=== PATIENT | female | born 1955 | race Hispanic/Latino ===

== ENCOUNTER 2018-04-11 01:40 | Emergency (ER) | payer SELFPAY ==
[2018-04-11] MEDS ORDERED: THIAMINE 200 MG/2 ML INJ ONE (02:04)
[2018-04-11] MEDS ORDERED: MULTIVITAMINS 10 ML VIAL (INJ) IV ONE (02:04)
[2018-04-11 02:36] LABS: Absolute Lymphocytes (CBC) 1.8 K/uL (0.7-4.9); Absolute Monocytes 0.5 K/uL (0.1-1.3); Absolute Neutrophil 3.2 K/uL (1.8-8.0); Basophils % 0.9 % (0-1.3); Eosinophils % 1.7 % (0-4.4); Hematocrit 41.2 % (36.0-45.0); Lymphocytes % 31.3 % (15.3-44.8); MCH 30.9 pg (27.0-35.0); MCV 90.5 fL (80-100); MPV 8.4 fL (7.6-11.3); RBC Red Blood Cell Count 4.55 M/uL (3.86-4.86)
[2018-04-11 02:47] LABS: Albumin 3.5 g/dL (3.4-5.0); Bilirubin Direct 0.1 mg/dL (0-0.2); Bilirubin Total 0.5 mg/dL (0.2-1.0); Potassium 3.4 mmol/L (3.5-5.1); Protein, Total 7.3 g/dL (6.4-8.2)
--- NOTE | 2018-04-11 02:53 | ER ---
Nurse's Notes [facility] Name: Edith Hernandez Age: 62 yrs Sex: Female : 1955 Arrival Date: 04/11/2018 Time: 01:42 Bed 4 Private MD: Diagnosis: Head injury. S/P Fall. Ingestion of alcohol Presentation: 04/11 01:45 Presenting complaint: EMS states: Patient was out in a bar drinking and fall in the ao bathroom sink and hit her forehead. Patient reports LOC about 2 minutes. Care prior to arrival: None. Mechanism of Injury: Fall from standing position. Hit a bathroom sink. Trauma event details: Injury occurred in the [facility]. 01:45 Acuity: ZHANG 3 ao 01:45 Method Of Arrival: EMS: [facility] ao 01:57 Transition of care: patient was not received from another setting of care. Onset of ao symptoms was April 11, 2018 at 01:00. Risk Assessment: Do you want to hurt yourself or someone else? Patient reports no desire to harm self or others. Initial Sepsis Screen: Does the patient meet any 2 criteria? No. Patient's initial sepsis screen is negative. Does the patient have a suspected source of infection? No. Patient's initial sepsis screen is negative. Triage Assessment: 01:54 General: Appears in no apparent distress. comfortable, Behavior is calm, cooperative, ao appropriate for age. Pain: Complains of pain in forehead Pain does not radiate. Pain currently is 8 out of 10 on a pain scale. EENT: No signs and/or symptoms were reported regarding the EENT system. Neuro: Level of Consciousness is awake, alert, obeys commands, Oriented to person, place, time, situation, Appropriate for age Moves all extremities. Full function Speech is normal. Cardiovascular: Capillary refill < 3 seconds Patient's skin is warm and dry. Respiratory: Airway is patent Respiratory effort is even, unlabored, Respiratory pattern is regular, symmetrical. GI: Abdomen is non-distended. : No signs and/or symptoms were reported regarding the genitourinary system. Derm: Skin is pink, warm \T\ dry. normal, Skin temperature is warm. Musculoskeletal: Circulation, motion, and sensation intact. Range of motion:. Trauma Activation: Physician: ED Physician; Name: Garrick; Notified At: ; Arrived At: Physician: General Surgeon; Name: ; Notified At: ; Arrived At: Physician: Radiology; Name: Naty; Notified At: ; Arrived At: Physician: Respiratory; Name: Teto; Notified At: ; Arrived At: Physician: Lab; Name: ; Notified At: ; Arrived At: Historical: - Allergies: 01:53 No Known Allergies; ao - Home Meds: 01:53 unknow hypertension [Active]; Insulin: Novolin R Sub-Q [Active]; ao - PMHx: 01:53 Stroke Left side defecit; ao - PSHx: 01:53 None; ao - Immunization history:: Adult Immunizations up to date. - Social history:: Smoking status: Patient/guardian denies using tobacco, Patient uses alcohol, occasionally. - Immunization history: Last tetanus immunization: unknown. - Ebola Screening: : Patient negative for fever greater than or equal to 101.5 degrees Fahrenheit, and additional compatible Ebola Virus Disease symptoms Patient denies exposure to infectious person Patient denies travel to an Ebola-affected area in the 21 days before illness onset. Screenin:49 Abuse screen: Denies threats or abuse. Denies injuries from another. Nutritional ao screening: No deficits noted. Tuberculosis screening: No symptoms or risk factors identified. Fall Risk Fall in past 12 months (25 points). Primary Survey: 01:54 A: Airway: patent. Breathing/Chest: Respiratory pattern: regular, Respiratory effort: ao spontaneous, unlabored, Breath sounds: clear, Chest inspection: symmetrical rise and fall of the chest. Circulation: Cardiac rhythm: sinus rhythm Heart tones present. Pulses: Skin color: pink, Skin temperature: warm. Disability Alert. 01:56 Reassessment Breathing/Chest. ao Assessment: 01:56 General: See triage assessment. ao 03:03 Reassessment: Patient to be discharge. DR Mccauley ordered to Bolus 500 Ml of the banana ao Bag. Patient to be send home when bolus is done about 30 min. Vital Signs: 01:49 BP 125 / 68; Pulse 70; Resp 16; Pulse Ox 96% on R/A; Weight 88.45 kg; Height 5 ft. 2 ao in. (157.48 cm); Pain 8/10; 03:04 BP 137 / 64; Pulse 72; Resp 16; Pulse Ox 100% on R/A; ao 01:49 Body Mass Index 35.67 (88.45 kg, 157.48 cm) ao [place] Coma Score: 01:49 Eye Response: spontaneous(4). Verbal Response: oriented(5). Motor Response: obeys ao commands(6). Total: 15. Trauma Score (Adult): 01:49 Eye Response: spontaneous(1); Verbal Response: oriented(1); Motor Response: obeys ao commands(2); Systolic BP: > 89 mm Hg(4); Respiratory Rate: 10 to 29 per min(4); Ayden Score: 15; Trauma Score: 12 ED Course: 01:42 Patient arrived in ED. ms 01:42 Sal Mccauley MD is Attending Physician. pkl 01:44 Raghu Grier RN is Primary Nurse. ao 01:48 Triage completed. ao 01:50 Arm band placed on right wrist. Patient placed in an exam room, on a stretcher, in a ao wheelchair, on canal driver, on pulse oximetry, Patient notified of wait time. 01:57 Patient has correct armband on for positive identification. Pulse ox on. NIBP on. ao 01:57 Patient maintains SpO2 saturation greater than 95% on room air. ao 01:57 Thermoregulation: warm blanket given to patient. ao 02:02 Radiology exam delayed due to ED staff drawing labs at this time. kw1 02:[address] via stretcher. kw1 02:16 CT Head Brain wo Cont In Process Unspecified. EDMS 02:16 CT completed. Patient tolerated procedure well. Patient moved back from CT. kw1 03:53 No provider procedures requiring assistance completed. IV discontinued, intact, tl2 bleeding controlled, No redness/swelling at site. Pressure dressing applied. Administered Medications: 02:31 Drug: Banana Bag - (NS 0.9% 1000 ml, foLIC Acid 1 mg, Thiamine 100 mg, Multivitamin 1 ao amp) Route: IV; Rate: calculated rate; Site: right antecubital; 03:51 Follow up: IV Status: Completed infusion; IV Intake: 700ml tl2 03:04 Drug: K-Dur 20 mEq Route: PO; ao 03:51 Follow up: Response: No adverse reaction tl2 03:05 Drug: Tylenol 650 mg Route: PO; ao 03:51 Follow up: Response: No adverse reaction tl2 03:05 Drug: Zofran 4 mg Route: IVP; Site: right antecubital; ao 03:52 Follow up: Response: No adverse reaction tl2 Intake: 03:51 IV: 700ml; Total: 700ml. tl2 03:54 PO: 50ml; IV: 700ml (IV Fluid); Total: 1450ml. tl2 Outcome: 02:52 Discharge ordered by . pkdominga 03:53 Discharged to home via wheelchair. tl2 03:53 Condition: stable 03:53 Discharge instructions given to patient, Instructed on discharge instructions, follow up and referral plans. Demonstrated understanding of instructions, follow-up care, medications. 03:54 Patient's length of stay was not longer than 2 hours. tl2 03:55 Patient left the ED. tl2 Signatures: Dispatcher [employer] EDSal Markham MD MD pkl Solis, Maria ms Ortiz, Alex RN Dara Isbell RN RN tl2 Mavis Bond [facility]
--- NOTE | 2018-04-11 02:53 | EDPHYS ---
Physician Documentation [facility] Name: Edith Hernandez Age: 62 yrs Sex: Female : 1955 Arrival Date: 04/11/2018 Time: 01:42 Bed 4 Private MD: ED Physician Sal Mccauley HPI: 04/11 01:46 This 62 yrs old Female presents to ER via Unassigned with complaints of Fall pkl Injury. 01:46 Details of fall: The patient fell from an upright position. Onset: The symptoms/episode pkl began/occurred just prior to arrival. Associated injuries: The patient sustained injury to the head, contusion, hit head against sink. Patient admits to drinking a lot earlier. Historical: - Allergies: 01:53 No Known Allergies; ao - Home Meds: 01:53 unknow hypertension [Active]; Insulin: Novolin R Sub-Q [Active]; ao - PMHx: 01:53 Stroke Left side defecit; ao - PSHx: 01:53 None; ao - Immunization history:: Adult Immunizations up to date. - Social history:: Smoking status: Patient/guardian denies using tobacco, Patient uses alcohol, occasionally. - Immunization history: Last tetanus immunization: unknown. - Ebola Screening: : Patient negative for fever greater than or equal to 101.5 degrees Fahrenheit, and additional compatible Ebola Virus Disease symptoms Patient denies exposure to infectious person Patient denies travel to an Ebola-affected area in the 21 days before illness onset. ROS: 01:46 Eyes: Negative for injury, pain, redness, and discharge, ENT: Negative for injury, pkl pain, and discharge, Neck: Negative for injury, pain, and swelling, Cardiovascular: Negative for chest pain, palpitations, and edema, Respiratory: Negative for shortness of breath, cough, wheezing, and pleuritic chest pain, Abdomen/GI: Negative for abdominal pain, nausea, vomiting, diarrhea, and constipation, Back: Negative for injury and pain, : Negative for injury, bleeding, discharge, and swelling, MS/Extremity: Negative for injury and deformity, Skin: Negative for injury, rash, and discoloration. 01:46 Neuro: Positive for loss of consciousness. Exam: 01:46 Eyes: Pupils equal round and reactive to light, extra-ocular motions intact. Lids and pkl lashes normal. Conjunctiva and sclera are non-icteric and not injected. Cornea within normal limits. Periorbital areas with no swelling, redness, or edema. 01:46 Head/face: Noted is hematoma, that is mild, of the forehead. 01:46 ENT: Exam is negative for acute changes. 01:46 Neck: Exam negative for acute changes, obvious evidence of injury or deformity. 01:46 Chest/axilla: Exam negative for acute changes. 01:46 Cardiovascular: Rate: normal, actual rate is 85 bpm, Rhythm: regular. 01:46 Respiratory: the patient does not display signs of respiratory distress, Respirations: normal, Breath sounds: are clear throughout. 01:46 Abdomen/GI: Bowel sounds: normal, Palpation: abdomen is soft and non-tender, in all quadrants. 01:46 Back: Exam negative for acute changes. 01:46 : Exam negative for acute changes. 01:46 Musculoskeletal/extremity: Exam is negative for acute changes. 01:46 Skin: Exam negative for rash. 01:46 Neuro: Orientation: is normal, Mentation: is normal, Cranial nerves: grossly normal, Motor: is normal. Vital Signs: 01:49 BP 125 / 68; Pulse 70; Resp 16; Pulse Ox 96% on R/A; Weight 88.45 kg; Height 5 ft. 2 ao in. (157.48 cm); Pain 8/10; 03:04 BP 137 / 64; Pulse 72; Resp 16; Pulse Ox 100% on R/A; ao 01:49 Body Mass Index 35.67 (88.45 kg, 157.48 cm) ao [place] Coma Score: 01:49 Eye Response: spontaneous(4). Verbal Response: oriented(5). Motor Response: obeys ao commands(6). Total: 15. Trauma Score (Adult): 01:49 Eye Response: spontaneous(1); Verbal Response: oriented(1); Motor Response: obeys ao commands(2); Systolic BP: > 89 mm Hg(4); Respiratory Rate: 10 to 29 per min(4); Ayden Score: 15; Trauma Score: 12 MDM: 01:42 Patient medically screened. pkl 02:51 Data reviewed: vital signs, nurses notes, lab test result(s), radiologic studies, CT pkl scan. 04/11 01:43 Order name: CBC with Diff; Complete Time: 02:46 pkl 04/11 01:43 Order name: Chem 7; Complete Time: 02:49 pkl 04/11 01:43 Order name: LFT's; Complete Time: 02:49 pkl 04/11 01:43 Order name: Lipase; Complete Time: 02:49 pkl 04/11 01:43 Order name: ETOH Level; Complete Time: 02:49 pkl 04/11 01:43 Order name: UDS pkl 04/11 01:44 Order name: CT Head Brain wo Cont pkl Administered Medications: 02:31 Drug: Banana Bag - (NS 0.9% 1000 ml, foLIC Acid 1 mg, Thiamine 100 mg, Multivitamin 1 ao amp) Route: IV; Rate: calculated rate; Site: right antecubital; 03:51 Follow up: IV Status: Completed infusion; IV Intake: 700ml tl2 03:04 Drug: K-Dur 20 mEq Route: PO; ao 03:51 Follow up: Response: No adverse reaction tl2 03:05 Drug: Tylenol 650 mg Route: PO; ao 03:51 Follow up: Response: No adverse reaction tl2 03:05 Drug: Zofran 4 mg Route: IVP; Site: right antecubital; ao 03:52 Follow up: Response: No adverse reaction tl2 Disposition: 04/11/18 02:52 Discharged to Home. Impression: Head injury. S/P Fall. Ingestion of alcohol. - Condition is Stable. - Medication Reconciliation Form, Thank You Letter, Antibiotic Education, Prescription Opioid Use form. - Follow up: Private Physician; When: 2 - 3 days; Reason: Re-evaluation by your physician. - Problem is new. - Symptoms have improved. Signatures: Dispatcher [employer] EDME Sal Mccauley MD MD pkRaghu Castaneda RN RN Dara Bernstein RN RN tl2 Corrections: (The following items were deleted from the chart) 03:55 02:52 04/11/2018 02:52 Discharged to Home. Impression: Head injury. S/P Fall. Ingestion tl2 of alcohol. Condition is Stable. Forms are Medication Reconciliation Form, Thank You Letter, Antibiotic Education, Prescription Opioid Use. Follow up: Private Physician; When: 2 - 3 days; Reason: Re-evaluation by your physician. Problem is new. Symptoms have improved. pkl
[2018-04-11] MEDS ORDERED: ACETAMINOPHEN 325 MG TABLET ONE (03:01)
[2018-04-11] MEDS ORDERED: POTASSIUM CL SA 10 MEQ TAB PO ONE (03:02)
[2018-04-11] MEDS ORDERED: ONDANSETRON 4 MG/2 ML VIAL ONE (03:03)
--- NOTE | 2018-04-11 11:29 | RAD REPORT ---
EXAM DESCRIPTION: CT - Head Brain Wo Cont - 04/11/2018 3:42 am CLINICAL HISTORY: fall Head injury. COMPARISON: No comparisons TECHNIQUE: All CT scans are performed using dose optimization technique as appropriate and may inclu de automated exposure control or mA/KV adjustment according to patient size. FINDINGS: No intracranial hemorrhage, hydrocephalus or extra-axial fluid collection.No areas of brai n edema or evidence of midline shift. The paranasal sinuses and mastoids are clear. The calvarium is intact. IMPRESSION: No acute intracranial abnormality.
== END 2018-04-11 03:55 | disposition home or self-care (01) ==
LOC: ER 01:40
DX: S00.83XA Contusion of other part of head, initial encounter (principal); S06.9X9A Unspecified intracranial injury with loss of consciousness of unspecified duration, initial encounter; W01.198A Fall on same level from slipping, tripping and stumbling with subsequent striking against other object, initial encounter; Y93.9 Activity, unspecified; Y92.29 Other specified public building as the place of occurrence of the external cause; F10.129 Alcohol abuse with intoxication, unspecified
CPT/HCPCS: 36415; 70450; 80048; 80076; 80320; 83690; 85025; 96365; 96375; 99285; J2405; J3411

== ENCOUNTER 2022-02-19 17:46 | Emergency (ER) | payer OTHER ==
--- OUTSIDE RECORDS SUMMARY | 2022-02-19 17:49 | XMS REPORT | Continuity of Care Document ---
:1955 Author Organization [facility] t Address [address] [place] [address] Care Team Providers Name Role Phone Tj Primary Care Physician CARLITO Attending Clinician Unavailable Carlito TOVAR Attending Clinician Bello TOVAR, K.H. Attending Clinician Payers Payer Name Policy Type Policy Number Effective Date Expiration Date S ource Problems Condition Condition Condition Status Onset Resolution Last Treating Co mments Source Name Details Category Date Date Treatment Clinician Date A-fib A-fib Disease Active Univers 2-24 ity of 00:00: [address] Sinus Sinus Disease Active 2020-09 Univers pause pause 1-24 ity of 00:00: [address] Paroxysmal Paroxysmal Disease Active 2020-09 U marifer atrial atrial 1-22 ity of fibrillati [place] with 00 Medical RVR RVR Branch Obesity Obesity Disease Active 2020-09 Univers (BMI (BMI 1-22 ity of 30-39.9) 30-39.9) 00:00: [address] Elevated Elevated Disease Active 2020-09 Unive rs brain brain 1-22 ity of natriureti natriureti [place] c peptide c peptide 00 Medi kin (BNP) (BNP) Branch level level Pancreatit Pancreatit Disease Active 2020-09 U nivers is, is, 1-20 ity of unspecifie unspecifie 00:[place] d 00 Medical pancreatit pancreatit Br anch is type is type Decreased Decreased Disease Active 2015-09 Uni vers coordinati coordinati 09-09 it y of on on 00:00: [place] [facility] Decreased Decreased Disease Active 2015-09 Uni vers pinch pinch 09-09 ity of strength strength 00:00: [place] [facility] Decreased 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 Disease 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-09 ity of 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 strength 00:00: [place] of left of left 00 Medical hand hand Branch Decreased Decreased Disease Active 2015-09 Uni vers activities activities 09-09 it y of of daily of daily 00:00: [place] living living 00 Medical (ADL) (ADL) Branch Cerebrovas Cerebrovas Disease Active 2015-09 U nivers cular cular 09-03 ity of accident accident 00:00: [place] (CVA) due (CVA) due 00 Medi kin to to Branch embolism 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 Gait Gait Disease Active 2015-09 Univers abnormalit abnormalit 09-03 it y of y y 00:00: [place] [facility] Weakness Weakness Disease Active 2015-09 Unive rs of both of both 1-03 ity of lower lower 00:00: [place] extremitie extremitie 00 Me dical s s Branch Left hand Left hand Disease Active Uni vers weakness weakness 8-24 ity of 00:00: [place] [facility] S/P S/P Disease Active Univers ablation ablation 8-23 ity of of atrial of atrial [place] fibr[place] fibr[place] 00 Me dical on on Branch Pre-syncop Pre-syncop Disease Active U nivers e e 7 ity of 00:00: [place] [facility] History of History of Disease Active U nivers endometria endometria 1-31 it y of l cancer l cancer 00:00: [place] [facility] Back pain Back pain Disease Active Uni vers 7- ity of 00:00: [place] [facility] Chest pain Chest pain Disease Active U nivers 03-26 ity of 00:00: [place] [facility] Atrial Atrial Disease Active Univers fibrillati fibrillati 03-09 it y of on on 00:00: [place] 00 Medical Branch Malignant Malignant Disease Active Uni vers 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 ICD10 Diagnosis Term Capacity Planner Utility HLD HLD Disease Active 2005-09 Overview: Univer s (hyperlipi (hyperlipi 1-08 Formattin ity of demia) demia) 00:00: g of this [place] 00 note Medical might be Branch different from the original. ICD10 Diagnosis Term Capacity Planner Utility Essential Essential Disease Active Uni vers hypertensi hypertensi 9-20 it y of on, benign on, benign 00:00: [place] 00 [place] Dysthymic Dysthymic Disease Active Uni vers disorder disorder 9-20 ity of 00:00: [place] 00 Medical Branch Varicose Varicose Disease Active Unive rs veins of veins of 9-07 ity of lower lower 00:00: [place] extremitie extremitie 00 Me dical s s Branch Abdominal Abdominal Disease Resolve 2014-092016-07-10 2016-07-10 Univers pain, left pain, left d 2-22 00:00:00 18:28:50 ity of lower lower 00:00: [place] quadrant quadrant 00 Medica l Branch Abdominal Abdominal Disease Resolve 2016-07-10 2016-07-10 Univers pain pain d 5-27 00:00:00 18:28:47 ity of 00:00: [place] 00 Medical Branch Fever and Fever and Disease Resolve 2016-07-10 2016-07-10 Univers chills chills d 5-27 00:00:00 18:28:57 ity of 00:00: [place] 00 Medical Branch Atypical Atypical Disease Resolve 2016-07-10 2016-07-10 Univers chest pain chest pain d 3-25 00:00:00 18:28:31 ity of 00:00: [place] 00 Medical Branch Acute Acute Disease Resolve 2016-07-10 2016-07-10 Univers appendicit appendicit d 1-13 00:00:00 18:28:42 ity of is is 00:00: [place] 00 Medical Branch Diabetes Diabetes Disease Resolve 2013-05-13 Univers mellitus mellitus d 03-09 00:00:00 ity of 00:00: [place] 00 Medical Branch Pneumonia Pneumonia Disease Resolve 2013-05-13 2013-05-13 Univers d 6- 00:00:00 18:45:16 ity of 00:00: [place] 00 Medical Branch Shortness Shortness Disease Resolve 2013-05-13 2013-05-13 Univers of breath of breath d 02-09 00:00:00 18:45:15 ity of 00:00: [place] 00 Medical Branch Uterine Uterine Disease Resolve 2013-05-13 2013-05-13 Univers polyp polyp d 12-02 00:00:00 18:45:26 ity of 00:00: [place] 00 Medical Branch Postmenopa Postmenopa Disease Resolve 2013-05-13 2013-05-13 Univers usal usal d 3- 00:00:00 18:45:29 ity of bleeding bleeding 00:00: [place] 00 Medical Branch Elevated Elevated Disease Resolve 2012-12-23 2012-12-23 Univers blood blood d 05-08 00:00:00 14:27:09 ity of pressure pressure 00:00: [place] reading reading 00 Medical without without Branch diagnosis diagnosis of of hypertensi hypertensi on on Allergies, Adverse Reactions, Alerts Allergy Allergy Status Severity Reaction(s) Onset Inactive Treating Comm ents Source Name Type Date Date Clinician Latex Propensi Active Rash Univers ty to 8-21 ity of adverse 00:00: [place] reaction 00 Medical s Branch LATEX DRUG Active Med Rash Univers INGREDI 8- ity of 00:00: [place] 00 Medical Branch METFORMI DRUG Active Unknown-Cmnt 2013-09 Un navneet N INGREDI 2- ity of 00:00: [place] 00 Medical Branch Metformi Propensi Active Unknown - 2013-09 Chills, Un navneet n ty to See comments 2-19 hypoglyce i ty of adverse 00:00: [place], [place] reaction 00 nausea/vo Medic al s miting Branch PINDOLOL DRUG Active Hallucinates Un navneet INGREDI 04-21 ity of 00:00: [place] 00 Medical Branch Pindolol Propensi Active Hallucinatio Univers ty to ns 04-21 ity of adverse 00:00: [place] reaction 00 Medical s Branch PACLITAX DRUG Active High Rash Univers EL INGREDI 03-09 ity of 00:00: [place] 00 Medical Branch Paclitax Propensi Active Other - See atrial U nivers el ty to comments 03-09 fibrillat ity o f adverse 00:00: ion [place] reaction Medical s to Branch drug ADHESIVE DRUG Active Rash Univers TAPE-RADHA 02-19 ity of ICONES 00:00: [place] 00 Medical Branch Adhesive Propensi Active Rash Including Uni vers Tape-Radha ty to 02-19 op site ity of icones adverse 00:00: adhesives [place] reaction -- Medical s significa Branch nt rash Social History Social Habit Start Date Stop Date Quantity Comments Source History [facility] University o f Alcohol Frequency [facility] edical Branch History [facility] University o f Alcohol Std Drinks [place] [facility] [place] History [facility] o f Alcohol Binge [facility] al Branch Exposure to 2021-12-30 2022-01-09 Not sure [facility] SARS-CoV-2 (event) 00:00:00 12:40:00 [facility] Alcohol intake 2022-01-09 2022-01-09 0 /d University of 00:00:00 00:00:00 [facility] Tobacco use and 2020-06-12 2020-06-12 Never used Universit y of exposure 00:00:00 00:00:00 [facility] Alcohol Comment 2008-01-17 2008-01-17 OCCASIONALLY Univers ity of 00:00:00 00:00:00 [facility] Sex [birth year] Universit y of 00:00:00 00:00:00 [facility] Smoking Status Start Date Stop Date Source Never smoker [facility] Medications Ordered Filled Start Stop Current Ordering Indication Dosage Frequency Signature Comments Components Source Medication Medication Date Date Medication? Clinician (SIG) Name Name coenzyme Yes 100mg Take 100 Univ ers Q10 100 mg 5-11 mg by ity of softgel 13:37: mouth [place] 12 daily. Medical Branch coenzyme 0 Yes 100mg Take 100 Univ ers Q10 100 mg 5-11 mg by ity of softgel 13:37: mouth [place] 12 daily. Medical Branch lisinopriL Yes 20mg Take 20 mg U nivers 20 mg 5-11 by mouth 2 ity of tablet 13:20: (two) [place] 20 times Medical daily. Branch lisinopriL 0 Yes 20mg Take 20 mg U nivers 20 mg 5-11 by mouth 2 ity of tablet 13:20: (two) [place] 20 times Medical daily. Branch empaglifloz Yes Take by Un navneet in 3-23 mouth ity of (JARDIANCE) 14:36: daily. [place] 25 mg Tab [address] [place] [address] Branch loratadine Yes Take by Uni vers 10 mg 3-23 mouth as ity of capsule 14:36: needed. [address] Branch empaglifloz Yes Take by Un navneet in 3-23 mouth ity of (JARDIANCE) 14:36: [place]. [place] 25 mg Tab 11 [facility] Branch loratadine Yes Take by Uni vers 10 mg 3-23 mouth as ity of capsule 14:36: needed. [address] estradioL 2021-0 Yes [id number] Apply a Univers 0.01 % (0.1 2-21 thin layer it y of mg/gram) 00:00: to [facility] [place] 00 affected Medical cream area twice Branch per week estradioL 2021-0 Yes [id number] Apply a Univers 0.01 % (0.1 2-21 thin layer it y of mg/gram) 00:00: to [facility] [place] 00 affected Medical cream area twice Branch per week amLODIPine 2021-0 Yes Univers 10 mg 1-04 ity of tablet 00:00: [place] [address] Medical Branch amLODIPine 2021-0 Yes Univers 10 mg 1-04 ity of tablet 00:00: [place] [address] Medical Branch omeprazole 2020- Yes Univers 20 mg 1-18 ity of capsule 00:00: [place] [facility] omeprazole 2020-09 Yes Univers 20 mg 1-18 ity of capsule 00:00: [place] [address] Medical Branch glipiZIDE 5 2020-09 Yes 5mg Take 5 mg U nivers mg tablet -07 by mouth ity of 00:00: daily. Medical Branch glipiZIDE 5 2020-09 Yes 5mg Take 5 mg U nivers mg tablet 07 by mouth ity of 00:00: daily. Medical Branch citalopram 2020-09 Yes 10mg 10 mg Univer s 10 mg 09-02 daily. ity of tablet 00:00: Medical Branch citalopram 2020-09 Yes 10mg 10 mg Univer s 10 mg 09-02 daily. ity of tablet 00:00: [place] [facility] atorvastati 2019-09 Yes 40mg Take 1 Univ ers n 40 mg 0-30 tablet by ity of tablet 00:00: mouth at [place] 00 bedtime. Medical Branch atorvastati 2019-09 Yes 40mg Take 1 Univ ers n 40 mg 0-30 tablet by ity of tablet 00:00: mouth at [place] 00 bedtime. Medical Branch atorvastati 2019-09 Yes 40mg Take 1 Univ ers n 40 mg 0-30 tablet by ity of tablet 00:00: mouth at [place] 00 bedtime. Medical Branch sAXagliptin 2019-09 Yes Take by Un navneet -metformin 0-12 mouth. ity of (KOMBIGLYZE 19:56: [place] XR) 5-1,000 33 Medical mg per Branch tablet empaglifloz 2019-09 Yes Take by Un navneet in 0-12 mouth. ity of (JARDIANCE) 19:56: [place] 25 mg [facility] Medical Branch pioglitazon 2019-09 Yes 30mg Take 30 mg Univers e 30 mg 0-12 by mouth ity of tablet 19:56: daily. [place] [address] Medical Branch loratadine 2019-09 Yes Take by Uni vers 10 mg 0-12 mouth. ity of capsule 19:56: [place] [address] Medical Branch coenzyme 2019-09 Yes 100mg Take 100 Univ ers Q10 100 mg 0-12 mg by ity of softgel 19:56: mouth [place] [address] daily. Medical Branch cyclobenzap Yes [id number] 10mg Take 1 Univers rine 10 mg 9-25 9103 tablet by ity of tablet 00:00: mouth 3 [place] 00 (three) Medical times Branch daily as needed for Muscle Spasms. Also for pain, spine. cyclobenzap Yes [id number] 10mg Take 1 Univers rine 10 mg 9-25 9103 tablet by ity of tablet 00:00: mouth 3 [place] 00 (three) Medical times Branch daily as needed for Muscle Spasms. Also for pain, spine. cyclobenzap Yes Trochanteri 10mg Take 1 Univers rine 10 mg 9-25 c bursitis tablet by ity of tablet 00:00: of left hip mouth 3 [place] 00 (three) Medical times Branch daily as needed for Muscle Spasms. Also for pain, spine. nitroglycer Yes .4mg Place 0.4 U nivers in 8-22 mg under ity of (NITROSTAT) 20:41: the tongue [place] 0.4 mg 15 every 5 Medical sublingual (five) Branch tablet minutes as needed for Chest pain. apixaban 5 Yes [id number] 5mg Take 1 U nivers mg tablet 6-05 tablet by ity o f 00:00: mouth 2 (two) Medical times Branch daily. apixaban 5 Yes [id number] 5mg Take 1 U nivers mg tablet 6-05 tablet by ity o f 00:00: mouth 2 [place] (two) Medical times Branch daily. lisinopril Yes 20mg Take 1 Unive rs 20 mg 6-05 tablet by ity of tablet 00:00: mouth 2 (two) Medical times Branch daily. apixaban 5 Yes DONNELLY 5mg Take 1 Unive rs mg tablet 6-05 (dyspnea on tablet by ity of 00:00: exertion) mouth 2 (two) Medical times Branch daily. alendronate Yes 70mg Take 1 Univ ers 70 mg 2-02 tablet by ity of tablet 00:00: mouth [place] 00 daily. Medical Branch alendronate Yes 70mg Take 1 Univ ers 70 mg 2-02 tablet by ity of tablet 00:00: mouth [place] 00 daily. Medical Branch alendronate Yes 70mg Take 1 Univ ers 70 mg 2-02 tablet by ity of tablet 00:00: mouth [place] 00 daily. Medical Branch heparin Yes 500U Univers lock flush 1-13 ity of (HEP-LOCK) 17:03: [place] 100 unit/mL 41 Medical injection Branch 500 Units calcium Yes 1{tbl} Take 1 Tab Un navneet carbonate-v 9-05 by mouth ity of itamin D3 00:00: daily. [place] 1,000 00 Medical mg(2,500 Branch mg)-800 unit Tab calcium 2014-0 Yes 1{tbl} Take 1 Tab Un navneet carbonate-v 9-05 by mouth ity of itamin D3 00:00: daily. [place] 1,000 00 Medical mg(2,500 Branch mg)-800 unit Tab calcium 2014-0 Yes 1{tbl} Take 1 Tab Un navneet carbonate-v 9-05 by mouth ity of itamin D3 00:00: daily. [place] 1,000 00 Medical mg(2,500 Branch mg)-800 unit Tab Immunizations Ordered Filled Immunization Date Status Comments [facility] e Immunization Name Name SARS-COV-2 COVID-19 2020-11-04 Completed Unive rsity of MODERNA VACCINE 00:00:00 [facility] SARS-COV-2 COVID-19 2020-11-04 Completed Unive rsity of MODERNA VACCINE 00:00:00 [facility] SARS-COV-2 COVID-19 2020-10-10 Completed Unive rsity of MODERNA VACCINE 00:00:00 [facility] SARS-COV-2 COVID-19 2020-10-10 Completed Unive rsity of MODERNA VACCINE 00:00:00 [facility] Influenza Virus 2020-07-07 Completed Universit y of Vaccine Quad .5 mL 00:00:00 [facility] 6+ [place] Influenza Virus 2020-07-07 Completed Universit y of Vaccine Quad .5 mL 00:00:00 [facility] 6+ [place] TDAP 2019-06-05 Completed University 00:00:00 [facility] TDAP 2019-06-05 Completed University 00:00:00 [facility] TDAP 2019-06-05 Completed University 00:00:00 [facility] Influenza Virus 2019-06-01 Completed Universit y of Vaccine Quad IM 3+ 00:00:00 [facility] Influenza Virus 2019-06-01 Completed Universit y of Vaccine Quad IM 3+ 00:00:00 [facility] Influenza Virus 2019-06-01 Completed Universit y of Vaccine Quad IM 3+ 00:00:00 [facility] Influenza Virus 2016-09-27 Completed Universit y of Vaccine Quad IM 00:00:00 [facility] ical Multi-dose 6+ [place] Branch Influenza Virus 2016-09-27 Completed Universit y of Vaccine Quad IM 00:00:00 [facility] ical Multi-dose 6+ MO Branch Influenza Virus 2016-09-27 Completed Universit y of Vaccine Quad IM 00:00:00 [facility] ical Multi-dose 6+ MO Branch Influenza Virus 2015-08-22 Completed Universit y of Vaccine Quad IM 3+ 00:00:00 [facility] Influenza Virus 2015-08-22 Completed Universit y of Vaccine Quad IM 3+ 00:00:00 [facility] Influenza Virus 2015-08-22 Completed Universit y of Vaccine Quad IM 3+ 00:00:00 [facility] Pneumococcal 2013-08-10 Completed University o f Polysaccharide, 00:00:00 [facility] ica PPSV23 (PNEUMOVAX) Branch Pneumococcal 2013-08-10 Completed University o f Polysaccharide, 00:00:00 [facility] ica PPSV23 (PNEUMOVAX) Branch Pneumococcal 2013-08-10 Completed University o f Polysaccharide, 00:00:00 [facility] PPSV23 (PNEUMOVAX) Branch TDAP (ADACEL) 2008-02-07 Completed University of VACCINE 00:00:00 [facility] TDAP (ADACEL) 2008-02-07 Completed University of VACCINE 00:00:00 [facility] TDAP (ADACEL) 2008-02-07 Completed University of VACCINE 00:00:00 [facility] Procedures This patient has no known procedures. Plan of Care Planned Activity Planned Date Details Comments Source Future Scheduled 2029-06-05 DTaP,Tdap,and Td Univers ity of Test 00:00:00 Vaccines (3 - Td) [facility] [code = Branch DTaP,Tdap,and Td Vaccines (3 - Td)] Future Scheduled 2024-07-02 Screening for University of Test 00:00:00 malignant neoplasm [place] Med ical of colon (procedure) Branch [code = 582526796] Future Scheduled 2024-07-02 Screening for University of Test 00:00:00 malignant neoplasm [place] Med ical of colon (procedure) Branch [code = 735039580] Future Scheduled 2022 Zoster Recombinant Postponed from Uni versity of Test 00:00:00 Vaccine (SHINGRIX) 2006 [place] Med ical (1 of 2) [code = (Alternative Branch Zoster Recombinant Guidelines) Vaccine (SHINGRIX) (1 of 2)] Future Scheduled 2022-01-30 Screening for University of Test 00:00:00 malignant neoplasm [place] Med ical of cervix Branch (procedure) [code = 092757545] Future Scheduled 2021-05-02 INFLUENZA VACCINE Univer sity of Test 00:00:00 (Season Ended) [code [place] M edical = INFLUENZA VACCINE Branch (Season Ended)] Future Scheduled 2020-04-30 Examination of Universit y of Test 00:00:00 retina (procedure) [place] Med ical [code = 054184634] Branch Future Scheduled 2017-09-27 Microalbumin University of Test 00:00:00 measurement, urine, [place] Me dical quantitative Branch (procedure) [code = 163143084] Future Scheduled 2017-04-26 Creatinine University of Test 00:00:00 measurement [place] Medical (procedure) [code = Branch [id number]] Future Scheduled 2017-04-25 Calculated low Universit y of Test 00:00:00 density lipoprotein [place] Me dical cholesterol level Branch (procedure) [code = 469213169] Future Scheduled 2017-02-05 Screening for University of Test 00:00:00 malignant neoplasm [place] Med ical of breast Branch (procedure) [code = 494471396] Future Scheduled 2017-01-07 Hemoglobin A1c Universit y of Test 00:00:00 measurement [place] Medical (procedure) [code = Branch [id number]] Future Scheduled 2016-11-01 Diabetic foot University of Test 00:00:00 examination [place] [facility] (regime/therapy) Branch [code = 641493473] Future Scheduled 2014-08-10 PNEUMOCOCCAL 0-64 Univer sity of Test 00:00:00 YEARS COMBINED [place] [facility] SERIES (2 of 3 - Branch PCV13) [code = PNEUMOCOCCAL 0-64 YEARS COMBINED SERIES (2 of 3 - PCV13)] Future Scheduled 2006 Screening for occult Uni versity of Test 00:00:00 blood in feces [place] [facility] (procedure) [code = Branch [id number]] Future Scheduled 2006 Stool DNA-based Universi ty of Test 00:00:00 colorectal cancer [place] Medi kin screening Branch (procedure) [code = 917939283201533] Future Scheduled 2006 Flexible fiberoptic Univ ersity of Test 00:00:00 sigmoidoscopy [facility] (procedure) [code = Branch [id number]] Future Scheduled 1972 SARS-CoV-2 University of Test 00:00:00 (COVID-19) Vaccine [facility] ical (1) [code = Branch SARS-CoV-2 (COVID-19) Vaccine (1)] Future Scheduled 1968 Depression screening Uni versity of Test 00:00:00 (procedure) [code = [facility] dical [id number]] Branch Encounters Start End Encounter Admission Attending Care Care Encounter Source Date/Time Date/Time Type Type Clinicians Facility Department ID 2022-03-22 2022-03-22 Outpatient R CARLITO COFILI COFILI [id number] Univers 10:20:00 10:20:00 MANUEL [id number] ity of [facility] 2022-01-24 2022-01-24 Telephone Carlito [facility] [id number] Univers 00:00:00 00:00:00 Manuel FISHER [id number] i ty [place] [id number] [place] PROF[place] [phone] [address] 2022-01-10 2022-01-10 [facility] [id number] Univers 00:00:00 00:00:00 Bruce FISHER [id number] ity [place] [id number] [place] PROFESS[place] [id number] [address] 2020-06-12 2020-06-27 Office [facility] [id number] 14:47:16 13:33:27 Visit Bruce Fisher [id number] [place] [id number] Professio [id number] [address] 2020-06-27 2020-06-27 [facility] [id number] 00:00:00 00:00:00 Bruce Fisher [id number] [place] [id number] Professio [phone] nal 059 Building Results This patient has no known results.
[2022-02-19 18:47] LABS: Protime INR 1.04
[2022-02-19 18:48] LABS: Absolute Lymphocytes (CBC) 1.7 K/uL (0.7-4.9); Hematocrit 39.2 % (36.0-45.0); Lymphocytes % 32.1 % (15.3-44.8); MPV 7.4 fL (7.6-11.3); RBC Red Blood Cell Count 4.37 M/uL (3.86-4.86)
[2022-02-19 19:18] LABS: Potassium 3.8 mmol/L (3.5-5.1)
[2022-02-19] MEDS ORDERED: FENTANYL CITR 100 MCG/2 ML ONE (19:39)
--- NOTE | 2022-02-19 20:13 | RAD REPORT ---
EXAM DESCRIPTION: CT - Head C Spine Cap W Venancio - 02/19/2022 7:48 pm CLINICAL HISTORY: Trauma, head and neck injury. Chest, abdomen and pelvis pain. fall COMPARISON: Abdomen Pelvis Wo Contrast dated 09/20/2019 TECHNIQUE: CT head without contrast. CT cervical spine without contrast with coronal and sagittal reformatted images. CT chest, abdomen and pelvis with coronal and sagittal reformatted images of the spine with contrast. All CT scans are performed using dose optimization technique as appropriate and may include automated exposure control or mA/KV adjustment according to patient size. FINDINGS: CT HEAD WITHOUT CONTRAST: No intracranial hemorrhage, hydrocephalus or extra-axial fluid collection. No acute large vascular te rritory infarct. The paranasal sinuses and mastoids are clear. The calvarium is intact. CT CERVICAL SPINE WITHOUT CONTRAST: No fracture or subluxation. The prevertebral soft tissues are normal in thickness.Mild reversal the normal cervical lordosis. Mil d cervical spondylosis with varying degrees of neural foraminal narrowing. CT CHEST, ABDOMEN, PELVIS: Thorax: Chest Wall: No abnormal mass right upper chest wall Port-A-Cath. Lungs: No acute abnormality. Pleura: No effusions or pneumothorax. Melly/Mediastinum: No lymphadenopathy. Aorta/Pulmonary Arteries: Unremarkable Heart: Normal size. Multi-vessel coronary artery disease. Abdomen/Pelvis: Liver: No acute abnormality or suspicious lesions. Biliary: Cholecystectomy. Stomach: No significant focal abnormality. Duodenum: No significant focal abnormality. Pancreas: No significant abnormality. Spleen: No significant abnormality. Adrenal: No suspicious lesions. Kidney/ureter: No hydronephrosis. No renal calculi. Retroperitoneum: No retroperitoneal adenopathy. Vascular: No aneurysm. Aortoiliac atherosclerosis. Bowel: No significant focal abnormality. Peritoneum: No ascites or free air. Bladder: Grossly unremarkable. Reproductive: No pelvic masses. Hysterectomy Bones: Possibly acute T3 compression fracture with approximately 20% loss of height. No bony retropul tanya. No other osseous fractures are seen. Other: n/a IMPRESSION: 1. No acute intracranial abnormality. 2. No acute fracture traumatic malalignment of the cervical spine. 3. Age indeterminate T3 compression fracture. Correlate with point tenderness. No bony retropulsion. No other evidence of significant trauma to the chest, abdomen, or pelvis. .
--- NOTE | 2022-02-19 20:18 | RAD REPORT ---
EXAM DESCRIPTION: RAD - Knee Right 3 View - 02/19/2022 7:32 pm CLINICAL HISTORY: PAIN COMPARISON: No comparisons FINDINGS/IMPRESSION: No acute fracture. No malalignment. No significant focal degenerative changes.
--- NOTE | 2022-02-19 20:18 | RAD REPORT ---
EXAM DESCRIPTION: RAD - Knee Left 3 View - 02/19/2022 7:32 pm CLINICAL HISTORY: PAIN COMPARISON: No comparisons FINDINGS: No acute fracture. No malalignment. Patellar enthesophyte. IMPRESSION: No acute osseous abnormality involving the left knee.
--- NOTE | 2022-02-19 21:33 | EDPHYS ---
Physician Documentation [facility] Name: Edith Hernandez Age: 66 yrs Sex: Female : 1955 Arrival Date: 02/19/2022 Time: 17:49 Bed 20 Private MD: ED Physician Brooks Nascimento HPI: 02/19 18:30 This 66 yrs old Female presents to ER via Wheelchair with complaints of Fall cp Injury. 18:30 Details of fall: The patient fell from an upright position, while walking, and struck a cp tile surface. 18:30 Onset: The symptoms/episode began/occurred yesterday, morning around 0200. Patient c/o cp chest pain, abdominal pain, bilateral knee pain, back pain and left hand pain. Patient denies hitting head and/or LOC. Historical: - Allergies: 18:05 No Known Allergies; vg1 - Home Meds: 18:05 lisinopril Oral [Active]; vg1 18:43 Insulin: Novolin R Sub-Q [Active]; unknow hypertension [Active]; bruner - PMHx: 18:05 Stroke Left side defecit; Hypertensive disorder; vg1 - PSHx: 18:05 section; Hysterectomy; vg1 - Immunization history:: Client reports receiving the 2nd dose of the Covid vaccine. - Social history:: Smoking status: Patient denies any tobacco usage or history of. - Immunization history: Last tetanus immunization: < 5 years ago. ROS: 18:35 Constitutional: Negative for body aches, chills, fever, poor PO intake. cp 18:35 Eyes: Negative for injury, pain, redness, and discharge. cp 18:35 Neck: Negative for pain with movement, pain at rest, stiffness. 18:35 Cardiovascular: Positive for chest pain, Negative for edema, palpitations. 18:35 Respiratory: Negative for cough, shortness of breath, wheezing. 18:35 Abdomen/GI: Positive for abdominal pain, Negative for vomiting, diarrhea, constipation. 18:35 Back: Positive for pain at rest, pain with movement. 18:35 MS/extremity: Positive for pain, of the left hand and left knee and right knee, Negative for decreased range of motion, deformity, paresthesias. 18:35 Neuro: Negative for altered mental status, headache, loss of consciousness, syncope, weakness. 18:35 All other systems are negative. Exam: 18:45 Constitutional: The patient appears in no acute distress, alert, awake, cp non-diaphoretic, non-toxic, well developed, well nourished, uncomfortable. 18:45 Head/Face: Normocephalic, atraumatic. cp 18:45 Eyes: Periorbital structures: appear normal, Pupils: equal, round, and reactive to light and accomodation, Extraocular movements: intact throughout, Conjunctiva: normal, no exudate, no injection, Lids and lashes: appear normal, bilaterally. 18:45 ENT: External ear(s): are unremarkable, Nose: is normal, Mouth: Lips: moist, Oral mucosa: moist, Posterior pharynx: Airway: no evidence of obstruction, patent. 18:45 Neck: C-spine: vertebral tenderness, is not appreciated, crepitus, is not appreciated, ROM/movement: pain, is not appreciated, limited range of motion, is not appreciated. 18:45 Chest/axilla: Inspection: normal. 18:45 Cardiovascular: Rate: normal, Rhythm: regular, Edema: is not appreciated, JVD: is not appreciated. 18:45 Respiratory: the patient does not display signs of respiratory distress, Respirations: normal, no use of accessory muscles, no retractions, labored breathing, is not present, Breath sounds: are clear throughout, no decreased breath sounds, no stridor, no wheezing. 18:45 Abdomen/GI: Inspection: abdomen appears normal, Bowel sounds: active, all quadrants, Palpation: soft, in all quadrants, mild abdominal tenderness, in the right upper quadrant and left upper quadrant, rebound tenderness, is not appreciated. 18:45 Back: ROM is painful, with all movement, vertebral tenderness, is appreciated at T3, T4 and T5, Straight leg raises: of both lower extremities does not illicit pain. 18:45 Musculoskeletal/extremity: Extremities: grossly normal except: noted in the left knee and right knee: pain, swelling, tenderness, There is no evidence of decreased ROM, deformity, ROM: limited passive range of motion due to pain, in the left knee and right knee. 18:45 Neuro: Orientation: to person, place \T\ time. Mentation: is normal, Cerebellar function: is grossly normal, Motor: moves all fours, strength is normal, Sensation: is normal. Vital Signs: 18:03 BP 170 / 60; Pulse 69; Resp 16; Temp 98.8(TE); Pulse Ox 100% ; Weight 91.63 kg; Height vg1 5 ft. 1 in. (154.94 cm); Pain 10/10; 19:36 BP 150 / 75; Pulse 63; Resp 17 S; Pulse Ox 100% on R/A; lg3 22:22 BP 142 / 74; Pulse 60; Resp 17; Pulse Ox 100% on R/A; lg3 18:03 Body Mass Index 38.17 (91.63 kg, 154.94 cm) vg1 [place] Coma Score: 18:42 Eye Response: spontaneous(4). Verbal Response: oriented(5). Motor Response: obeys bruner commands(6). Total: 15. Trauma Score (Adult): 18:42 Eye Response: spontaneous(1); Verbal Response: oriented(1); Motor Response: obeys bruner commands(2); Systolic BP: > 89 mm Hg(4); Respiratory Rate: 10 to 29 per min(4); Edmond Score: 15; Trauma Score: 12 MDM: 18:09 Patient medically screened. cp 21:31 Data reviewed: vital signs, nurses notes, lab test result(s), radiologic studies, CT cp scan, plain films. 21:31 Differential diagnosis: closed head injury, contusion, fracture, multiple trauma. Test cp interpretation: by ED physician or midlevel provider: plain radiologic studies. Counseling: I had a detailed discussion with the patient and/or guardian regarding: the historical points, exam findings, and any diagnostic results supporting the discharge/admit diagnosis, lab results, radiology results, the need for outpatient follow up, a family practitioner, a neurosurgeon, to return to the emergency department if symptoms worsen or persist or if there are any questions or concerns that arise at home. Response to treatment: the patient's symptoms have markedly improved after treatment, VSS. Pain improved. Discussed CT results showing stable T3 compression fracture. Will discharge to home for continued monitoring. 02/19 18:24 Order name: Basic Metabolic Panel; Complete Time: 19:37 cp 02/19 18:24 Order name: CBC with Diff; Complete Time: 19:37 cp 02/19 18:24 Order name: Type And Screen; Complete Time: 19:37 cp 02/19 18:24 Order name: CT Traumagram (Head C Spine CAP W Con); Complete Time: 21:23 cp 02/19 21:23 Interpretation: Report reviewed. cp 02/19 18:24 Order name: PT-INR; Complete Time: 19:37 cp 02/19 18:24 Order name: XRAY Knee LEFT 3 view; Complete Time: 21:23 cp 02/19 21:24 Interpretation: Report reviewed. cp 02/19 18:24 Order name: Labs collected and sent; Complete Time: 18:40 cp 02/19 18:24 Order name: XRAY Knee RIGHT 3 view; Complete Time: 21:23 cp 02/19 21:24 Interpretation: Report reviewed. cp 02/19 21:29 Order name: Crutches; Complete Time: 22:23 cp Administered Medications: 19:36 Drug: fentaNYL (PF) 25 mcg Route: IVP; Site: right antecubital; lg3 19:36 Follow up: Response: No adverse reaction lg3 Disposition Summary: 02/19/22 21:32 Discharge Ordered Location: Home cp Problem: new cp Symptoms: have improved cp Condition: Stable cp Diagnosis - Fall on same level from slipping, tripping and stumbling without subsequent cp striking against object - Pain in knee - bilateral, from fall cp - Chest pain, unspecified - from fall cp - Abdominal pain, unspecified - from fall cp - T3 Compression Fracture cp Followup: cp - With: El Goddard MD - When: 2 - 3 days - Reason: thoracic compression fracture Discharge Instructions: - Discharge Summary Sheet cp - Abdominal Pain, Adult cp - Spinal Compression Fracture cp - Nonspecific Chest Pain, Adult cp - Acute Knee Pain, Adult cp Forms: - Medication Reconciliation Form cp - Thank You Letter cp - Antibiotic Education cp - Prescription Opioid Use cp Prescriptions: - Cyclobenzaprine 10 mg Oral Tablet - take 1 tablet by ORAL route every 8 hours As needed; 20 tablet; Refills: 0, cp Product Selection Permitted - Tramadol 50 mg Oral Tablet - take 1 tablet by ORAL route every 8 hours as needed; 12 tablet; Refills: 0, cp Product Selection Permitted - Diclofenac Sodium 75 mg Oral tablet,delayed release (DR/EC) - take 1 tablet by ORAL route 2 times per day; 20 tablet; Refills: 0, Product cp Selection Permitted Signatures: Dispatcher [employer] EDBrooks Morin PA PA cp Gibson, Lacie, RN RN lg3 Nilsa Rothman, RN RN vg1 Laureen Escalante, RN RN bruner
--- NOTE | 2022-02-19 21:33 | ER ---
Nurse's Notes [facility] Name: Edith Hernandez Age: 66 yrs Sex: Female : 1955 Arrival Date: 02/19/2022 Time: 17:49 Bed 20 Private MD: Diagnosis: Fall on same level from slipping, tripping and stumbling without subsequent striking against object;Pain in knee-bilateral, from fall;Chest pain, unspecified-from fall;Abdominal pain, unspecified-from fall;T3 Compression Fracture Presentation: 02/19 18:03 Chief complaint: Patient states: fell yesterday walking down slop, states lost footing vg1 and landed on left hand, chest, MICHELE knees, states SOB, Denies LOC or hitting head. Coronavirus screen: Vaccine status: Patient reports receiving the 2nd dose of the covid vaccine. Client denies travel out of the [place] in the last 14 days. Ebola Screen: Patient denies exposure to infectious person. Patient denies travel to an Ebola-affected area in the 21 days before illness onset. Initial Sepsis Screen: Does the patient meet any 2 criteria? No. Patient's initial sepsis screen is negative. Does the patient have a suspected source of infection? No. Patient's initial sepsis screen is negative. Risk Assessment: Do you want to hurt yourself or someone else? Patient reports no desire to harm self or others. Onset of symptoms was February 18, 2022. 18:03 Method Of Arrival: Wheelchair vg1 18:03 Acuity: ZHANG 3 vg1 18:42 Care prior to arrival: None. Mechanism of Injury: Fall. Trauma event details: Injury bruner occurred: February 18, 2022. Triage Assessment: 18:05 General: Appears uncomfortable, Behavior is calm, cooperative. Pain: Complains of pain vg1 in right knee, left knee, left hand, chest Pain currently is 10 out of 10 on a pain scale. Neuro: Level of Consciousness is awake, alert, obeys commands, Oriented to person, place, time, situation. Musculoskeletal: Circulation, motion, and sensation intact. Trauma Activation: Not Applicable Physician: ED Physician; Name: ; Notified At: ; Arrived At: Physician: General Surgeon; Name: ; Notified At: ; Arrived At: Physician: Radiology; Name: ; Notified At: ; Arrived At: Physician: Respiratory; Name: ; Notified At: ; Arrived At: Physician: Lab; Name: ; Notified At: ; Arrived At: Historical: - Allergies: 18:05 No Known Allergies; vg1 - Home Meds: 18:05 lisinopril Oral [Active]; vg1 18:43 Insulin: Novolin R Sub-Q [Active]; unknow hypertension [Active]; bruner - PMHx: 18:05 Stroke Left side defecit; Hypertensive disorder; vg1 - PSHx: 18:05 section; Hysterectomy; vg1 - Immunization history:: Client reports receiving the 2nd dose of the Covid vaccine. - Social history:: Smoking status: Patient denies any tobacco usage or history of. - Immunization history: Last tetanus immunization: < 5 years ago. Screenin:41 Abuse screen: Denies threats or abuse. Denies injuries from another. Nutritional bruner screening: No deficits noted. Tuberculosis screening: No symptoms or risk factors identified. Fall Risk None identified. Primary Survey: 18:41 NO uncontrolled hemorrhage observed. A: The client is awake and alert. The airway is bruner patent. The client is alert. Airway: patent. Breathing/Chest: Spontaneous respiratory effort, equal unlabored respirations, breath sounds clear bilaterally, regular pattern, symmetrical chest rise and fall. Respiratory effort: spontaneous, unlabored. Circulation: No external hemorrhage present. Regular and strong central pulse, skin warm/dry/normal color. Disability Client is alert. Exposure/Environment: All clothing and personal items were removed. A warming method has been applied:. 18:42 Reassessment Alertness and Airway: Awake and alert. The airway is patent. Airway Patent bruner Breathing: Spontaneous respiratory effort, equal unlabored respirations, breath sounds clear bilaterally, regular pattern with symmetrical chest rise and fall. Respiratory effort Spontaneous Unlabored Circulation: No external hemorrhage noted. Regular and strong central pulse, skin warm/dry/normal color. Color [place] Disability: Alert. Assessment: 18:40 General: Appears in no apparent distress. Behavior is calm, cooperative. Pain: bruner Complains of pain in chest, abdomen, right leg and left leg. Musculoskeletal: Reports pain in chest, abdomen, left hand, right leg and left leg Pain is 6 out of 10 on a pain scale. 19:36 General: Appears in no apparent distress. comfortable, Behavior is calm, cooperative. lg3 Pain: Complains of pain in left hand and left leg and right leg and abdomen and chest Pain currently is 10 out of 10 on a pain scale. Neuro: No deficits noted. Maldonado Agitation-Sedation Scale (RASS): 0 - Alert and Calm Level of Consciousness is awake, alert, obeys commands, Oriented to person, place, time, situation. Cardiovascular: No deficits noted. Denies chest pain, shortness of breath, Capillary refill < 3 seconds Clubbing of nail beds is absent JVD is absent Patient's skin is warm and dry. Respiratory: No deficits noted. Airway is patent Trachea midline Respiratory effort is even, unlabored, Respiratory pattern is regular, symmetrical. GI: No deficits noted. Abdomen is round non-distended, Reports lower abdominal pain, upper abdominal pain. : No deficits noted. No signs and/or symptoms were reported regarding the genitourinary system. EENT: No deficits noted. No signs and/or symptoms were reported regarding the EENT system. Derm: No deficits noted. No signs and/or symptoms reported regarding the dermatologic system. Skin is intact, is healthy with good turgor, Skin is dry, Skin temperature is warm. 21:05 Reassessment: Patient appears in no apparent distress at this time. No changes from lg3 previously documented assessment. Patient and/or family updated on plan of care and expected duration. Pain level reassessed. Patient is alert, oriented x 3, equal unlabored respirations, skin warm/dry/pink. Vital Signs: 18:03 BP 170 / 60; Pulse 69; Resp 16; Temp 98.8(TE); Pulse Ox 100% ; Weight 91.63 kg; Height vg1 5 ft. 1 in. (154.94 cm); Pain 10/10; 19:36 BP 150 / 75; Pulse 63; Resp 17 S; Pulse Ox 100% on R/A; lg3 22:22 BP 142 / 74; Pulse 60; Resp 17; Pulse Ox 100% on R/A; lg3 18:03 Body Mass Index 38.17 (91.63 kg, 154.94 cm) vg1 [place] Coma Score: 18:42 Eye Response: spontaneous(4). Verbal Response: oriented(5). Motor Response: obeys bruner commands(6). Total: 15. Trauma Score (Adult): 18:42 Eye Response: spontaneous(1); Verbal Response: oriented(1); Motor Response: obeys bruner commands(2); Systolic BP: > 89 mm Hg(4); Respiratory Rate: 10 to 29 per min(4); Ayden Score: 15; Trauma Score: 12 ED Course: 17:49 Patient arrived in ED. mr 17:57 Brooks Fink PA is PHCP. cp 17:57 Brooks Nascimento MD is Attending Physician. cp 18:05 Triage completed. vg1 18:05 Arm band placed on. vg1 18:18 Laureen Escalante, RN is Primary Nurse. bruner 18:41 Patient has correct armband on for positive identification. Bed in low position. bruner 18:41 No provider procedures requiring assistance completed. Inserted saline lock: 20 gauge bruner in right antecubital area, using aseptic technique. 18:43 Patient maintains SpO2 saturation greater than 95% on room air. bruner 18:43 Thermoregulation: warm blanket given to patient. bruner 19:14 Primary Nurse role handed off by Laureen Escalante RN mw2 19:28 Vero Vazquez, MUKESH is Primary Nurse. lg3 19:34 XRAY Knee LEFT 3 view In Process Unspecified. EDMS 19:34 XRAY Knee RIGHT 3 view In Process Unspecified. EDMS 19:50 CT Traumagram (Head C Spine CAP W Con) In Process Unspecified. EDMS 21:30 El Goddard MD is Referral Physician. cp 22:21 IV discontinued, intact, bleeding controlled, No redness/swelling at site. Pressure lg3 dressing applied. Administered Medications: 19:36 Drug: fentaNYL (PF) 25 mcg Route: IVP; Site: right antecubital; lg3 19:36 Follow up: Response: No adverse reaction lg3 Medication: 18:43 VIS not applicable for this client. bruner Intake: 18:42 PO: 0ml; Total: 0ml. bruner Outcome: 21:32 Discharge ordered by . cp 22:20 Discharged to home ambulatory, with crutches, with family. lg3 22:20 Condition: stable 22:20 Discharge instructions given to patient, Instructed on discharge instructions, medication usage, crutch walking, Demonstrated understanding of instructions, medications, crutch walking, Prescriptions given X 3. 22:21 Patient's length of stay in the Emergency Department was greater than 2 hours. lg3 22:21 Patient left the ED. lg3 Signatures: Dispatcher [employer] EDID Dayana Haro mr Danae, MICHI Guy cp, Sarah 2 Vero Vazquez RN RN lg3 Nilsa Rothman RN RN vg1 Laureen Escalante RN RN bruner
[2022-02-19 23:05] VITALS: TEMP 98.8; O2SAT 100
[2022-02-19 23:06] VITALS: BP 150/75
== END 2022-02-19 22:21 | disposition home or self-care (01) ==
LOC: ER 17:46
DX: S22.039A Unspecified fracture of third thoracic vertebra, initial encounter for closed fracture (principal); R07.9 Chest pain, unspecified; M25.562 Pain in left knee; M25.561 Pain in right knee; W01.0XXA Fall on same level from slipping, tripping and stumbling without subsequent striking against object, initial encounter; I10 Essential (primary) hypertension
CPT/HCPCS: 85025; 80048; 36415; 86900; 86850; 85610; 86901; 70450; 72125; 71260; 74177; 73562 ×2; Q9967; J3010

== ENCOUNTER 2024-01-06 14:58 | Emergency (ER) | payer OTHER ==
--- OUTSIDE RECORDS SUMMARY | 2024-01-06 15:05 | XMS REPORT | Continuity of Care Document ---
Author Name Unknown Address [address] [facility] [address] [place] [address] [facility] thconnect Address [address] [facility] [place] [address] Care Team Providers Care Ore Sampler Name Role Phone ClaudioestrellaSushila Primary Care Physician [phone] ALEXEY CLARKE Attending Clinician Unavailable ALEXEY CLARKE Attending Clinician Unavailable Doctor Unassigned, Michie Attending Clinician U aby Bates MD, Send[facility] K.[facility]. Attending Clinician [phone] RICARDO LUJAN Attending Clinician Unavailable RICARDO LUJAN Attending Clinician Unavailable DELMI MENDOZA Attending Clinician Unav ailable DELMI MENDOZA Attending Clinician Unav ailable LOTTIE TRUONG Attending Clinician Unavaila LOTTIE Lester Attending Clinician UnavailBRUCE Hector K.HDrew Attending Clinician UnavailEDUARDO Ghotra Attending Clinician Unavailable , Sleep Lab Bed Attending Clinician Unavail Lottie Chong MD Attending Clinician [phone] KIRILL CORONA Attending Clinician UnavailORLANDO Liu Attending Clinician Unavailable ORLANDO EDWARD Attending Clinician Unavailable Eduardo Esteban MD Attending Clinician [phone] Kinsey Banegas MD Attending Clinician Pob, Adc Lab Main Attending Clinician Unavailabl erik George [facility], Tonyab Evie Aceves Attending Clinici an Cruz Huddleston MD Attending Clinician [phone] Niranjan Fisher RN Attending Clinician Unavail able LUCY LYNN Attending Clinician Unavailable Jacki Samuels DO Attending Clinician [phone] Russell Mercado MD Attending Clinician [phone] Lucy Lynn DO Attending Clinician [phone] RADIOLOGY Attending Clinician Unavailable ALAN CASTRO Attending Clinician Unavaildave solitario 2, Adc Lab Attending Clinician Unavailable CHATO MONTES DE OCA Attending Clinician Kassy Montes De Oca MD, Chato Jimenes Attending Clinician + [phone] IGNACIA CRUZ Attending Clinician Unavailable Only, Adc Test Attending Clinician Unavailable Alan Castro PA-C Attending Clinician [phone] [facility], Clint Attending Clinician [phone] Niya Smith RN Attending Clinician Unavailable RUSSELL MERCADO Attending Clinician Unavailable ALBINA FULLER Attending Clinician Unavailable Albina Fuller PA-C Attending Clinician [phone] Kellie Barfield MD Attending Clinician [phone] Alan Wild MD Attending Clinician [phone] ALAN WILD Attending Clinician Unavail able ALAN WILD Attending Clinician Unavail able DELMI MENDOZA Admitting Clinician Unav EDUARDO Nevarez Admitting Clinician Unavailable KIRILL CORONA Admitting Clinician Unavaildave Esteban MD, Eduardo Admitting Clinician [phone] RUSSELL MERCADO Admitting Clinician Unavailable Russell Mercado MD Admitting Clinician [phone] CHATO MONTES DE OCA Admitting Clinician IGNACIA Robison Admitting Clinician Unavailable Payers Payer Name Policy Type Policy Number Effective Date Expirati on Date Source [employer] T[employer] C[employer] MEDICARE HMO DSNP [id number] 2020 00:00:00 [facility] DUAL COMP HMO D SNP [id number] 2021 00:00:00 2023 00:00:00 [place] [id number] 2018 00:00:00 2022 00:00:00 MEDICAID DUAL COMPLETE HMO DSNP [facility] [id number] 2022 00:00:00 2022 00:00:00 Problems Condition Name Condition Details Condition Category Status Onset Date Resolution Date Last Treatment Date Treating Clinician Comments Source S/P placement of cardiac pacemaker S/P placement of cardiac pacemaker Disease Active 11-07 00:00: 00 [facility] History of CVA (cerebrova scular accident) without residual deficits History of CVA (cerebrova scular accident) without residual deficits Disease Active 09-18 00:00: 00 [facility] Nonobstruc tive atheroscle rosis of coronary artery Nonobstruc tive atheroscle rosis of coronary artery Disease Active 09-18 00:00: 00 [facility] THEODORE (obstructi ve sleep apnea) THEODORE (obstructi ve sleep apnea) Disease Active 09-18 00:00: 00 [facility] Atrial fibrillati on with RVR Atrial fibrillati on with RVR Disease Active 16 00:00: 00 [facility] A-fib A-fib Disease Active 10-25 00:00: 00 [facility] 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 Disease Active 2020-09 00:00: 00 [facility] Paroxysmal atrial fibrillati on with RVR Paroxysmal atrial fibrillati on with RVR Disease Active 2020-09 00:00: 00 [facility] Obesity (BMI 30-39.9) Obesity (BMI 30-39.9) Disease Active 2020-09 00:00: 00 [facility] Elevated brain natriureti c peptide (BNP) level Elevated brain natriureti c peptide (BNP) level Disease Active 2020-09 00:00: 00 [facility] Elevated brain natriureti c peptide (BNP) level Elevated brain natriureti c peptide (BNP) level Disease Active 2020-09 00:00: 00 [facility] Pancreatit is, unspecifie d pancreatit is type Pancreatit is, unspecifie d pancreatit is type Disease Active 2020-09 00:00: 00 [facility] Decreased coordinati on Decreased coordinati on Disease Active 2015-09 00:00: 00 [facility] Decreased pinch strength Decreased pinch strength Disease Active 2015-09 00:00: 00 [facility] Decreased central sterilization technician strength of left hand Decreased central sterilization technician strength of left hand Disease Active 2015-09 00:00: 00 [facility] Decreased activities of daily living (ADL) Decreased activities of daily living (ADL) Disease Active 2015-09 00:00: 00 [facility] Cerebrovas cular accident (CVA) due to embolism of right carotid artery Cerebrovas cular accident (CVA) due to embolism of right carotid artery Disease Active 2015-09 00:00: 00 [facility] Gait abnormalit y Gait abnormalit y Disease Active 2015-09 00:00: 00 [facility] Weakness of both lower extremitie s Weakness of both lower extremitie s Disease Active 2015-09 00:00: 00 [facility] Cerebrovas cular accident (CVA) due to embolism of right carotid artery Cerebrovas cular accident (CVA) due to embolism of right carotid artery Disease Active 2015-09 00:00: 00 [facility] Weakness of both lower extremitie s Weakness of both lower extremitie s Disease Active 2015-09 00:00: 00 [facility] Left hand weakness Left hand weakness Disease Active 04-24 00:00: 00 [facility] S/P ablation of atrial fibrillati on S/P ablation of atrial fibrillati on Disease Active 04-23 00:00: 00 [facility] Pre-syncop e Pre-syncop e Disease Active 03-06 00:00: 00 [facility] History of endometria l cancer History of endometria l cancer Disease Active 10-01 00:00: 00 [facility] Back pain Back pain Disease Active 03-26 00:00: 00 [facility] Chest pain Chest pain Disease Active 03-26 00:00: 00 [facility] Atrial fibrillati on Atrial fibrillati on Disease Active 03-09 00:00: 00 [facility] DONNELLY (dyspnea on exertion) DONNELLY (dyspnea on exertion) Disease Active 02-09 00:00: 00 [facility] Malignant neoplasm of corpus uteri, except isthmus Malignant neoplasm of corpus uteri, except isthmus Disease Active 12-24 00:00: 00 [facility] Simple obesity Simple obesity Disease Active 11-25 00:00: 00 [facility] Type 2 diabetes mellitus without complicati ons Type 2 diabetes mellitus without complicati ons Disease Active 12-21 00:00: 00 Overview: Formattin g of this note might be different from the original. ICD10 Diagnosis Term [employer] [facility] Type 2 diabetes mellitus with other specified complicati on Type 2 diabetes mellitus with other specified complicati on Disease Active 12-21 00:00: 00 Overview: Formattin g of this note might be different from the original. ICD10 Diagnosis Term [employer] [facility] HLD (hyperlipi demia) HLD (hyperlipi demia) Disease Active 2005-09 00:00: 00 Overview: Formattin g of this note might be different from the original. ICD10 Diagnosis Term [employer] [facility] Dyslipidem ia Dyslipidem ia Disease Active 2005-09 00:00: 00 Overview: Formattin g of this note might be different from the original. ICD10 Diagnosis Term [employer] [facility] Essential hypertensi on, benign Essential hypertensi on, benign Disease Active 05-21 00:00: 00 [facility] Dysthymic disorder Dysthymic disorder Disease Active 05-21 00:00: 00 [facility] Essential hypertensi on Essential hypertensi on Disease Active 05-21 00:00: 00 [facility] Varicose veins of lower extremitie s Varicose veins of lower extremitie s Disease Active 05-08 00:00: 00 [facility] Allergies, Adverse Reactions, Alerts Allergy Name Allergy Type Status Severity Reaction(s) Onset Date Inactive Date Treating Clinician Comments Source Latex Propensi ty to adverse reaction s Active Rash 04-21 00:00: 00 [facility] LATEX DRUG INGREDI Active Med Rash 04-21 00:00: 00 [facility] METFORMI N DRUG INGREDI Active Unknown-Cmnt 2013-09 00:00: 00 [facility] Metformi n Propensi ty to adverse reaction s Active Unknown - See comments 2013-09 00:00: 00 Chills, hypoglyce ashley, nausea/vo miting [facility] PINDOLOL DRUG INGREDI Active Hallucinates 04-21 00:00: 00 [facility] Pindolol Propensi ty to adverse reaction s Active Hallucinatio ns 04-21 00:00: 00 [facility] PACLITAX EL DRUG INGREDI Active High Rash 03-09 00:00: 00 [facility] Paclitax el Propensi ty to adverse reaction s to drug Active Other - See comments 03-09 00:00: 00 atrial fibrillat ion [facility] Adhesive Tape-Jaymie icones Propensi ty to adverse reaction s Active Rash 02-19 00:00: 00 Including op site adhesives -- significa nt rash [facility] ADHESIVE TAPE-JAYMIE ICONES DRUG Active Rash 02-19 00:00: 00 [facility] Social History Social Habit Start Date Stop Date Quantity Comments Source History SDOH Social Connections Get Together [facility] History SDOH Social Connections Presybeterian [facility] History SDOH Social Connections Membership [facility] History SDWA Social Connections Meetings [facility] Gender identity Univ ersity [facility] Sexual orientation U niversity [facility] Exposure to SARS-CoV-2 (event) 2022-12-16 00:00:00 2022-12-26 13:31:00 Not sure [facility] Tobacco use and exposure 2022-11-07 00:00:00 2022-11-07 00:00:00 Smokeless tobacco non-user [facility] Alcoholic beverage intake 2022-11-07 00:00:00 2022-11-07 00:00:00 0 /d [facility] Alcohol intake 2022-11-07 00:00:00 2022-11-07 00:00:00 0 /d [facility] History of Social function 2022-09-23 00:00:00 2022-09-23 00:00:00 [facility] History SDOH Social Connections Phone 2022-09-17 00:00:00 2022-09-17 00:00:00 5 [facility] History SDOH Social Connections Living 2022-09-17 00:00:00 2022-09-17 00:00:00 4 [facility] History SDOH Physical Activity DPW 2022-09-17 00:00:00 2022-09-17 00:00:00 3 [facility] History SDOH Physical Activity MPS 2022-09-17 00:00:00 2022-09-17 00:00:00 3 [facility] History SDOH Financial 2022-09-17 00:00:00 2022-09-17 00:00:00 4 [facility] History SDOH Food Worry 2022-09-17 00:00:00 2022-09-17 00:00:00 1 [facility] History SDOH Food Scarcity 2022-09-17 00:00:00 2022-09-17 00:00:00 1 [facility] History SDOH Transport Med 2022-09-17 00:00:00 2022-09-17 00:00:00 2 [facility] History SDOH Transport Non-Med 2022-09-17 00:00:00 2022-09-17 00:00:00 2 [facility] History SDOH Alcohol Frequency 2022-09-17 00:00:00 2022-09-17 00:00:00 1 [facility] History SDOH Alcohol Std Drinks 2022-09-17 00:00:00 2022-09-17 00:00:00 0 [facility] History SDOH Alcohol Binge 2022-09-17 00:00:00 2022-09-17 00:00:00 1 [facility] Alcohol Comment 2008-01-17 00:00:00 2008-01-17 00:00:00 OCCASIONALLY [facility] Sex assigned at 1955 00:00:00 1955 00:00:00 [facility] Smoking Status Start Date Stop Date Source Never smoked tobacco [facility] Medications Ordered Medication Name Filled Medication Name Start Date Stop Date Current Medication? Ordering Clinician Indication Dosage Frequency Signature (SIG) Comments Components Source enoxaparin (LOVENOX) 100 mg/mL injection 02-11 00:00: 00 02-14 04:59 :00 No [id number] 90mg inject 0.9 mL under the skin every 12 (twelve) hours for 2 days. [facility] diltiazem 30 mg tablet 01-31 00:00: 00 Yes [id number] 9109 30mg Take 1 tablet by mouth every 8 (eight) hours. [facility] LISINOPRIL 20 mg tablet 11 00:00: 00 Yes TAKE ONE TABLET BY MOUTH EVERY MORNING AND 1 TABLET IN EVENING [facility] empaglifloz in 25 mg Tab 12-18 15:19: 50 Yes Take by mouth daily. [facility] alendronate 70 mg tablet 12-18 15:19: 50 Yes 70mg Take 1 tablet by mouth weekly. [facility] diclofenac 75 mg EC tablet 12-18 15:19: 50 Yes 75mg Take 1 tablet by mouth in the morning and 1 tablet in the evening. Take with meals. [facility] doxycycline hyclate (Vibramycin ) capsule 100 mg 11-09 00:00: 00 11-15 22:59 :00 No [id number] 100mg 100 mg, Oral, Q12HA2, 14 doses, First dose on Fri11/08/22 at 1800, Last dose on Fri11/15/22 at 0600, SANG
Re ason for Anti-Infec tive: Surgical Prophylaxi s
Surgi kin Prophylaxi s: Cardiothor acic
Du ration of therapy: within 24 hours of surgery [facility] empaglifloz in 25 mg Tab 11-08 19:04: 14 Yes Take by mouth daily. [facility] loratadine 10 mg capsule 11-08 19:04: 14 Yes Take by mouth as needed. [facility] coenzyme Q10 100 mg softgel 11-08 19:04: 14 Yes 100mg Take 1 capsule by mouth in the morning. [facility] alendronate 70 mg tablet 11-08 19:04: 14 Yes 70mg Take 1 tablet by mouth weekly. [facility] diclofenac 75 mg EC tablet 11-08 19:04: 14 Yes 75mg Take 1 tablet by mouth in the morning and 1 tablet in the evening. Take with meals. [facility] empaglifloz in (JARDIANCE) tablet 25 mg 11-08 15:00: 00 Yes [id number] 25mg 25 mg, Oral, DAILY, First dose on Fri11/08/22 at 0900, Until Discontinu ed
Is this a home medication ? Yes
Has this patient brought their own medication ? No
[facility] will dispense the medication from inpatient. Pharmacy will dispense the medication from inpatient.
Inpati ent ordering of this medication is not allowed unless the patient is maintained on this medication at home, and home supply is unavailabl e. Does this order meet the criteria for inpatient ordering? Yes [facility] citalopram (CELEXA) tablet 10 mg 11-08 15:00: 00 Yes [id number] 10mg 10 mg, Oral, DAILY, First dose on Fri11/08/22 at 0900, Until Discontinu ed, Routine [facility] vancomycin 1250 mg in NS 250 mL RTU IV Piggyback 1,250 mg 11-08 08:00: 00 11-08 20:49 :00 No [id number] 1250mg 1,250 mg, IV Piggyback, Q12H ABX, 2 doses, First dose on Fri11/08/22 at 0200, Last dose on Fri11/08/22 at 1400, Administer over 90 Minutes, 250 mL, CV Recovery to Floor
R corie for Anti-Infec tive: Surgical Prophylaxi s
Surgi kin Prophylaxi s: Cardiothor acic
Du ration of therapy: within 24 hours of surgery [facility] HYDROcodone -acetaminop hen (NORCO 5) 5-325 mg tablet 1 tablet 11-08 05:09: 59 Yes [id number] 1{tbl} 1 tablet, Oral, Q6HPRN, 2 doses, Starting on Fri11/07/22 at 2309, Until Discontinu ed, Routine, Pain (scale 7-10), Pain (scale 4-6) [facility] diltiazem (CARDIZEM) tablet 30 mg 11-08 04:00: 00 Yes [id number] 30mg 30 mg, Oral, Q8H, First dose on Fri11/07/22 at 2200, Until Discontinu ed, Routine [facility] atorvastati n (LIPITOR) tablet 40 mg 11-08 03:00: 00 Yes [id number] 40mg 40 mg, Oral, QHS, First dose on Fri11/07/22 at 2100, Until Discontinu ed, Routine [facility] omeprazole (PRILOSEC) capsule 20 mg 11-08 02:00: 00 Yes [id number] 20mg 20 mg, Oral, BID, First dose on Fri11/07/22 at 2000, Until Discontinu ed, Routine [facility] lisinopriL (PRINIVIL,Z ESTRIL) tablet 20 mg 11-08 02:00: 00 Yes [id number] 20mg 20 mg, Oral, BID, First dose on Kirti 11/07/22 at 2000, Until Discontinu ed, Routine [facility] HYDROcodone -acetaminop hen (NORCO 5) 5-325 mg tablet 1 tablet 11-08 00:45: 00 11-07 23:51 :00 No [id number] 1{tbl} 1 tablet, Oral, ONCE, 1 dose, On Kirti 11/07/22 at 1845, Routine [facility] doxycycline hyclate 100 mg capsule 11-08 00:00: 00 11-16 04:59 :00 No [id number] 100mg Take 1 capsule by mouth every 12 (twelve) hours for 7 days. [facility] cyclobenzap rine (FLEXERIL) tablet 10 mg 11-07 22:17: 45 Yes [id number] 10mg 10 mg, Oral, TIDPRN, Starting on Kirti 11/07/22 at 1617, Until Discontinu ed, Routine, Muscle Spasms [facility] iohexol (OMNIPAQUE 300-100 mL) injection 11-07 21:55: 00 Yes ONCE INTRA PROCEDURE, Starting on Kirti 11/07/22 at 1555, Until Discontinu ed, Routine, CV Intraproce dure [facility] lidocaine 1% (PF) (XYLOCAINE) injection 11-07 20:42: 02 11-07 21:59 :55 No ONCE INTRA PROCEDURE, Starting on Kirti 11/07/22 at 1442, Until Kirti 11/07/22 at 1559, Routine, CV Intraproce dure [facility] vancomycin 1000 mg in NS 200 mL RTU IV Piggyback 11-07 20:35: 00 11-07 20:30 :00 No CONTINUOUS PRN, Starting on Kirti 11/07/22 at 1435, Until Kirti 11/07/22 at 1430, Administer over 60 Minutes, CV Intraproce dure [facility] midazolam (VERSED) injection 11-07 20:30: 58 11-07 21:59 :55 No ONCE INTRA PROCEDURE, Starting on Kirti 11/07/22 at 1430, Until Kirti 11/07/22 at 1559, Routine, CV Intraproce dure [facility] FENTanyl PF (SUBLIMAZE (PF)) injection 11-07 20:30: 42 11-07 21:59 :55 No ONCE INTRA PROCEDURE, Starting on Kirti 11/07/22 at 1430, Until Kirti 11/07/22 at 1559, Routine, CV Intraproce dure [facility] coenzyme Q10 100 mg softgel 10-03 14:57: 35 Yes 100mg Take 100 mg by mouth daily. [facility] coenzyme Q10 100 mg softgel 09-23 13:55: 38 Yes 100mg Take 100 mg by mouth daily. [facility] atorvastati n 40 mg tablet 09-23 00:00: 00 Yes [id number] 9109 40mg Take 1 tablet by mouth at bedtime. [facility] diltiazem 30 mg tablet 09-23 00:00: 00 01-31 00:00 :00 No [id number] 9109 30mg Take 1 tablet by mouth every 8 (eight) hours. [facility] empaglifloz in 25 mg Tab 09-19 16:16: 02 Yes Take by mouth daily. [facility] loratadine 10 mg capsule 09-19 16:16: 02 Yes Take by mouth as needed. [facility] coenzyme Q10 100 mg softgel 09-19 16:16: 02 Yes 100mg Take 100 mg by mouth daily. [facility] diltiazem 30 mg tablet 09-19 00:00: 00 09-23 00:00 :00 No [id number] 9109 30mg Take 1 tablet by mouth every 8 (eight) hours for 30 days. [facility] diltiazem (CARDIZEM) tablet 30 mg 09-18 20:00: 00 Yes 30mg 30 mg, Oral, Q8H, First dose (after last modificati on) on Fri09/18/22 at 1400, Until Discontinu ed, Routine [facility] atorvastati n (LIPITOR) tablet 40 mg 09-18 03:00: 00 Yes 40mg 40 mg, Oral, QHS, First dose on Fri09/17/22 at 2100, Until Discontinu ed, Routine [facility] omeprazole (PRILOSEC) capsule 20 mg 09-17 15:00: 00 Yes 20mg 20 mg, Oral, DAILY, First dose on Fri09/17/22 at 0900, Until Discontinu ed, Routine [facility] empaglifloz in (JARDIANCE) tablet 25 mg 09-17 15:00: 00 Yes 25mg 25 mg, Oral, DAILY, First dose on Fri09/17/22 at 0900, Until Discontinu ed
Is this a home medication ? Yes
Has this patient brought their own medication ? No
[facility] will dispense the medication from inpatient. Pharmacy will dispense the medication from inpatient.
Inpati ent ordering of this medication is not allowed unless the patient is maintained on this medication at home, and home supply is unavailabl e. Does this order meet the criteria for inpatient ordering? Yes [facility] citalopram (CELEXA) tablet 10 mg 09-17 15:00: 00 Yes 10mg 10 mg, Oral, DAILY, First dose on Fri09/17/22 at 0900, Until Discontinu ed, Routine [facility] glipiZIDE (GLUCOTROL) tablet 5 mg 09-17 15:00: 00 Yes 5mg 5 mg, Oral, DAILY, First dose on Fri09/17/22 at 0900, Until Discontinu ed, Routine [facility] apixaban (ELIQUIS) tablet 5 mg 09-17 14:00: 00 Yes 5mg 5 mg, Oral, BID, First dose on Fri09/17/22 at 0800, Until Discontinu ed, Routine
Indicatio ns: Non-Valvul ar Atrial Fibrillati on [facility] Sliding Scale Insulin-Reg ular + Fsbg Testing 09-17 13:30: 00 Yes Subcutaneo us, AC+HS, First dose on Fri09/17/22 at 0730, Until Discontinu ed, Routine [facility] NaCl 0.9% (NS) IV infusion 1,000 mL 09-17 07:30: 00 09-17 17:41 :00 No 1000mL at 100 mL/hr, IV Infusion, ONCE, 1 dose, On Fri09/17/22 at 0130, Routine [facility] glucagon (GLUCAGEN DIAGNOSTIC KIT) injection 1 mg 09-17 04:21: 18 Yes 1mg 1 mg, Intramuscu lar, PRN, Starting on Fri09/16/22 at 2221, Until Discontinu ed, SANG, Blood Glucose < or = 70 mg/dL and patient is unable to swallow or has mental changes. [facility] dextrose 50 % in water (D50W) injection 25 mL 09-17 04:21: 18 Yes 25mL 25 mL, Slow IV Push, PRN, Starting on Fri09/16/22 at 2221, Until Discontinu ed, SANG, Blood Glucose < or = 70 mg/dL and patient is unable to swallow or has mental status changes. [facility] cyclobenzap rine (FLEXERIL) tablet 10 mg 09-17 04:13: 32 Yes 10mg 10 mg, Oral, TIDPRN, Starting on Fri09/16/22 at 2213, Until Discontinu ed, Routine, Muscle Spasms [facility] digoxin (LANOXIN) injection 500 mcg 09-17 02:15: 00 09-17 01:53 :00 No 500ug 500 mcg, Intravenou s, ONCE, 1 dose, On Fri09/16/22 at 2015, Routine [facility] diltiazem (CARDIZEM IV) injection 10 mg 09-17 02:15: 00 09-17 01:53 :00 No 10mg 10 mg, IV Push, ONCE, 1 dose, On Fri09/16/22 at 2015, STAT
Fa culty member approving Restricted medication : RUSSELL MERCADO [facility] diltiazem (CARDIZEM) tablet 30 mg 09-17 00:00: 00 09-18 15:54 :29 No 30mg 30 mg, Oral, Q6H, First dose on Fri09/16/22 at 1800, Until Discontinu ed, Routine [facility] acetaminoph en-codeine (TYLENOL #3) 300-30 mg tablet 1 tablet 09-16 23:49: 01 09-18 23:48 :01 No 1{tbl} 1 tablet, Oral, Q6HPRN, Starting on Fri09/16/22 at 1749, Until Fri09/18/22 at 1748, Routine, Pain (scale 4-6) [facility] acetaminoph en (TYLENOL) tablet 650 mg 09-16 23:49: 00 Yes 650mg 650 mg, Oral, Q6HPRN, Starting on Fri09/16/22 at 1749, Until Discontinu ed, Routine, Pain (scale 1-3) [facility] diltiazem (CARDIZEM IV) injection 15 mg 09-16 23:45: 00 09-16 23:39 :00 No 15mg 15 mg, IV Push, ONCE, 1 dose, On Fri09/16/22 at 1745, STAT
Fa culty member approving Restricted medication : JACKI SAMUELS [facility] diltiazem (CARDIZEM IV) injection 25 mg 09-16 21:30: 00 09-16 21:20 :00 No 25mg 25 mg, IV Push, ONCE, 1 dose, On Fri09/16/22 at 1530, STAT
Fa culty member approving Restricted medication : JACKI SAMUELS [facility] lisinopriL 20 mg tablet 2021-09 14:37: 53 07-08 00:00 :00 No 20mg Take 20 mg by mouth 2 (two) times daily. [facility] lisinopriL 20 mg tablet 2021-09 00:00: 00 01-09 00:00 :00 No 20mg Take 1 tablet by mouth in the morning and 1 tablet in the evening. [facility] empaglifloz in 25 mg Tab 03-22 15:15: 24 Yes Take by mouth daily. [facility] loratadine 10 mg capsule 03-22 15:15: 24 Yes Take by mouth as needed. [facility] coenzyme Q10 100 mg softgel 03-22 15:15: 24 Yes 100mg Take 1 capsule by mouth in the morning. [facility] lisinopriL 20 mg tablet 03-22 15:15: 24 Yes 20mg Take 20 mg by mouth 2 (two) times daily. [facility] nitroglycer in (NITROSTAT) 0.4 mg sublingual tablet 01-09 13:20: 35 01-09 00:00 :[address] 0.4 mg under the tongue every 5 (five) minutes as needed for Chest pain. [facility] estradioL 0.01 % (0.1 mg/gram) vaginal cream 10-22 00:00: 00 Yes [id number] Apply a thin layer to affected area twice per week [facility] amLODIPine 10 mg tablet 09-04 00:00: 00 09-23 00:00 :00 No [facility] amiodarone 200 mg tablet 2020-09 00:00: 00 01-09 00:00 :00 No [id number] 200mg Take 1 tablet by mouth daily. [facility] omeprazole 20 mg capsule 2020-09 00:00: 00 Yes 20mg Take 1 capsule in the morning and 1 capsule in the evening. [facility] glipiZIDE 5 mg tablet 2020-09 00:00: 00 Yes 5mg Take 1 tablet by mouth in the morning. [facility] citalopram 10 mg tablet 2020-09 00:00: 00 Yes 10mg Take 1 tablet in the morning. [facility] atorvastati n 40 mg tablet 2019-09 030 00:00: 00 09-23 00:00 :00 No 40mg Take 1 tablet by mouth at bedtime. [facility] cyclobenzap rine 10 mg tablet 05-26 00:00: 00 Yes [id number] 10mg Take 1 tablet by mouth 3 (three) times daily as needed for Muscle Spasms. Also for pain, spine. [facility] apixaban 5 mg tablet 02-03 00:00: 00 Yes [id number] 5mg Take 1 tablet by mouth 2 (two) times daily. [facility] alendronate 70 mg tablet 10-03 00:00: 00 09-19 00:00 :00 No 70mg Take 1 tablet by mouth weekly. [facility] calcium carbonate-v itamin D3 1,000 mg(2,500 mg)-800 unit Tab 05-06 00:00: 00 Yes 1{tbl} Take 1 Tab by mouth daily. [facility] Immunizations Ordered Immunization Name Filled Immunization Name Date Status Comments Source SARS-COV-2 COVID-19 MODERNA VACCINE 2020-11-04 00:00:00 Completed [facility] SARS-COV-2 COVID-19 MODERNA 12+ YRS VACCINE 2020-11-04 00:00:00 Completed [facility] SARS-COV-2 COVID-19 MODERNA 12+ YRS VACCINE 2020-11-04 00:00:00 Completed [facility] SARS-COV-2 COVID-19 MODERNA 12+ YRS VACCINE 2020-11-04 00:00:00 Completed [facility] SARS-COV-2 COVID-19 MODERNA 12+ YRS VACCINE 2020-11-04 00:00:00 Completed [facility] SARS-COV-2 COVID-19 MODERNA 12+ YRS VACCINE 2020-11-04 00:00:00 Completed [facility] SARS-COV-2 COVID-19 MODERNA 12+ YRS VACCINE 2020-11-04 00:00:00 Completed [facility] SARS-COV-2 COVID-19 MODERNA 12+ YRS VACCINE 2020-11-04 00:00:00 Completed [facility] SARS-COV-2 COVID-19 MODERNA 12+ YRS VACCINE 2020-11-04 00:00:00 Completed [facility] SARS-COV-2 COVID-19 MODERNA 12+ YRS VACCINE 2020-11-04 00:00:00 Completed [facility] SARS-COV-2 COVID-19 MODERNA 12+ YRS VACCINE 2020-11-04 00:00:00 Completed [facility] SARS-COV-2 COVID-19 MODERNA 12+ YRS VACCINE 2020-11-04 00:00:00 Completed [facility] SARS-COV-2 COVID-19 MODERNA 12+ YRS VACCINE 2020-11-04 00:00:00 Completed [facility] SARS-COV-2 COVID-19 MODERNA 12+ YRS VACCINE 2020-11-04 00:00:00 Completed [facility] SARS-COV-2 COVID-19 MODERNA 12+ YRS VACCINE 2020-11-04 00:00:00 Completed [facility] SARS-COV-2 COVID-19 MODERNA 12+ YRS VACCINE 2020-11-04 00:00:00 Completed [facility] SARS-COV-2 COVID-19 MODERNA 12+ YRS VACCINE 2020-11-04 00:00:00 Completed [facility] SARS-COV-2 COVID-19 MODERNA 12+ YRS VACCINE 2020-11-04 00:00:00 Completed [facility] SARS-COV-2 COVID-19 MODERNA 12+ YRS VACCINE 2020-11-04 00:00:00 Completed [facility] SARS-COV-2 COVID-19 MODERNA 12+ YRS VACCINE 2020-11-04 00:00:00 Completed [facility] SARS-COV-2 COVID-19 MODERNA 12+ YRS VACCINE 2020-11-04 00:00:00 Completed [facility] SARS-COV-2 COVID-19 MODERNA 12+ YRS VACCINE 2020-11-04 00:00:00 Completed [facility] SARS-COV-2 COVID-19 MODERNA 12+ YRS VACCINE 2020-11-04 00:00:00 Completed [facility] SARS-COV-2 COVID-19 MODERNA 12+ YRS VACCINE 2020-11-04 00:00:00 Completed [facility] SARS-COV-2 COVID-19 MODERNA 12+ YRS VACCINE 2020-11-04 00:00:00 Completed [facility] SARS-COV-2 COVID-19 MODERNA 12+ YRS VACCINE 2020-11-04 00:00:00 Completed [facility] SARS-COV-2 COVID-19 MODERNA 12+ YRS VACCINE 2020-11-04 00:00:00 Completed [facility] SARS-COV-2 COVID-19 MODERNA 12+ YRS VACCINE 2020-11-04 00:00:00 Completed [facility] SARS-COV-2 COVID-19 MODERNA 12+ YRS VACCINE 2020-11-04 00:00:00 Completed [facility] SARS-COV-2 COVID-19 MODERNA 12+ YRS VACCINE 2020-11-04 00:00:00 Completed [facility] SARS-COV-2 COVID-19 MODERNA 12+ YRS VACCINE 2020-11-04 00:00:00 Completed [facility] SARS-COV-2 COVID-19 MODERNA 12+ YRS VACCINE 2020-11-04 00:00:00 Completed [facility] SARS-COV-2 COVID-19 MODERNA 12+ YRS VACCINE 2020-11-04 00:00:00 Completed [facility] SARS-COV-2 COVID-19 MODERNA 12+ YRS VACCINE 2020-11-04 00:00:00 Completed [facility] SARS-COV-2 COVID-19 MODERNA 12+ YRS VACCINE 2020-11-04 00:00:00 Completed [facility] SARS-COV-2 COVID-19 MODERNA 12+ YRS VACCINE 2020-11-04 00:00:00 Completed [facility] SARS-COV-2 COVID-19 MODERNA 12+ YRS VACCINE 2020-11-04 00:00:00 Completed [facility] SARS-COV-2 COVID-19 MODERNA 12+ YRS VACCINE 2020-11-04 00:00:00 Completed [facility] SARS-COV-2 COVID-19 MODERNA 12+ YRS VACCINE 2020-11-04 00:00:00 Completed [facility] SARS-COV-2 COVID-19 MODERNA 12+ YRS VACCINE 2020-11-04 00:00:00 Completed [facility] SARS-COV-2 COVID-19 MODERNA 12+ YRS VACCINE 2020-11-04 00:00:00 Completed [facility] SARS-COV-2 COVID-19 MODERNA 12+ YRS VACCINE 2020-11-04 00:00:00 Completed [facility] SARS-COV-2 COVID-19 MODERNA 12+ YRS VACCINE 2020-11-04 00:00:00 Completed [facility] SARS-COV-2 COVID-19 MODERNA 12+ YRS VACCINE 2020-11-04 00:00:00 Completed [facility] SARS-COV-2 COVID-19 MODERNA 12+ YRS VACCINE 2020-11-04 00:00:00 Completed [facility] SARS-COV-2 COVID-19 MODERNA 12+ YRS VACCINE 2020-11-04 00:00:00 Completed [facility] SARS-COV-2 COVID-19 MODERNA 12+ YRS VACCINE 2020-11-04 00:00:00 Completed [facility] SARS-COV-2 COVID-19 MODERNA 12+ YRS VACCINE 2020-11-04 00:00:00 Completed [facility] SARS-COV-2 COVID-19 MODERNA 12+ YRS VACCINE 2020-11-04 00:00:00 Completed [facility] SARS-COV-2 COVID-19 MODERNA 12+ YRS VACCINE 2020-11-04 00:00:00 Completed [facility] SARS-COV-2 COVID-19 MODERNA VACCINE 2020-10-10 00:00:00 Completed [facility] SARS-COV-2 COVID-19 MODERNA 12+ YRS VACCINE 2020-10-10 00:00:00 Completed [facility] SARS-COV-2 COVID-19 MODERNA 12+ YRS VACCINE 2020-10-10 00:00:00 Completed [facility] SARS-COV-2 COVID-19 MODERNA 12+ YRS VACCINE 2020-10-10 00:00:00 Completed [facility] SARS-COV-2 COVID-19 MODERNA 12+ YRS VACCINE 2020-10-10 00:00:00 Completed [facility] SARS-COV-2 COVID-19 MODERNA 12+ YRS VACCINE 2020-10-10 00:00:00 Completed [facility] SARS-COV-2 COVID-19 MODERNA 12+ YRS VACCINE 2020-10-10 00:00:00 Completed [facility] SARS-COV-2 COVID-19 MODERNA 12+ YRS VACCINE 2020-10-10 00:00:00 Completed [facility] SARS-COV-2 COVID-19 MODERNA 12+ YRS VACCINE 2020-10-10 00:00:00 Completed [facility] SARS-COV-2 COVID-19 MODERNA 12+ YRS VACCINE 2020-10-10 00:00:00 Completed [facility] SARS-COV-2 COVID-19 MODERNA 12+ YRS VACCINE 2020-10-10 00:00:00 Completed [facility] SARS-COV-2 COVID-19 MODERNA 12+ YRS VACCINE 2020-10-10 00:00:00 Completed [facility] SARS-COV-2 COVID-19 MODERNA 12+ YRS VACCINE 2020-10-10 00:00:00 Completed [facility] SARS-COV-2 COVID-19 MODERNA 12+ YRS VACCINE 2020-10-10 00:00:00 Completed [facility] SARS-COV-2 COVID-19 MODERNA 12+ YRS VACCINE 2020-10-10 00:00:00 Completed [facility] SARS-COV-2 COVID-19 MODERNA 12+ YRS VACCINE 2020-10-10 00:00:00 Completed [facility] SARS-COV-2 COVID-19 MODERNA 12+ YRS VACCINE 2020-10-10 00:00:00 Completed [facility] SARS-COV-2 COVID-19 MODERNA 12+ YRS VACCINE 2020-10-10 00:00:00 Completed [facility] SARS-COV-2 COVID-19 MODERNA 12+ YRS VACCINE 2020-10-10 00:00:00 Completed [facility] SARS-COV-2 COVID-19 MODERNA 12+ YRS VACCINE 2020-10-10 00:00:00 Completed [facility] SARS-COV-2 COVID-19 MODERNA 12+ YRS VACCINE 2020-10-10 00:00:00 Completed [facility] SARS-COV-2 COVID-19 MODERNA 12+ YRS VACCINE 2020-10-10 00:00:00 Completed [facility] SARS-COV-2 COVID-19 MODERNA 12+ YRS VACCINE 2020-10-10 00:00:00 Completed [facility] SARS-COV-2 COVID-19 MODERNA 12+ YRS VACCINE 2020-10-10 00:00:00 Completed [facility] SARS-COV-2 COVID-19 MODERNA 12+ YRS VACCINE 2020-10-10 00:00:00 Completed [facility] SARS-COV-2 COVID-19 MODERNA 12+ YRS VACCINE 2020-10-10 00:00:00 Completed [facility] SARS-COV-2 COVID-19 MODERNA 12+ YRS VACCINE 2020-10-10 00:00:00 Completed [facility] SARS-COV-2 COVID-19 MODERNA 12+ YRS VACCINE 2020-10-10 00:00:00 Completed [facility] SARS-COV-2 COVID-19 MODERNA 12+ YRS VACCINE 2020-10-10 00:00:00 Completed [facility] SARS-COV-2 COVID-19 MODERNA 12+ YRS VACCINE 2020-10-10 00:00:00 Completed [facility] SARS-COV-2 COVID-19 MODERNA 12+ YRS VACCINE 2020-10-10 00:00:00 Completed [facility] SARS-COV-2 COVID-19 MODERNA 12+ YRS VACCINE 2020-10-10 00:00:00 Completed [facility] SARS-COV-2 COVID-19 MODERNA 12+ YRS VACCINE 2020-10-10 00:00:00 Completed [facility] SARS-COV-2 COVID-19 MODERNA 12+ YRS VACCINE 2020-10-10 00:00:00 Completed [facility] SARS-COV-2 COVID-19 MODERNA 12+ YRS VACCINE 2020-10-10 00:00:00 Completed [facility] SARS-COV-2 COVID-19 MODERNA 12+ YRS VACCINE 2020-10-10 00:00:00 Completed [facility] SARS-COV-2 COVID-19 MODERNA 12+ YRS VACCINE 2020-10-10 00:00:00 Completed [facility] SARS-COV-2 COVID-19 MODERNA 12+ YRS VACCINE 2020-10-10 00:00:00 Completed [facility] SARS-COV-2 COVID-19 MODERNA 12+ YRS VACCINE 2020-10-10 00:00:00 Completed [facility] SARS-COV-2 COVID-19 MODERNA 12+ YRS VACCINE 2020-10-10 00:00:00 Completed [facility] SARS-COV-2 COVID-19 MODERNA 12+ YRS VACCINE 2020-10-10 00:00:00 Completed [facility] SARS-COV-2 COVID-19 MODERNA 12+ YRS VACCINE 2020-10-10 00:00:00 Completed [facility] SARS-COV-2 COVID-19 MODERNA 12+ YRS VACCINE 2020-10-10 00:00:00 Completed [facility] SARS-COV-2 COVID-19 MODERNA 12+ YRS VACCINE 2020-10-10 00:00:00 Completed [facility] SARS-COV-2 COVID-19 MODERNA 12+ YRS VACCINE 2020-10-10 00:00:00 Completed [facility] SARS-COV-2 COVID-19 MODERNA 12+ YRS VACCINE 2020-10-10 00:00:00 Completed [facility] SARS-COV-2 COVID-19 MODERNA 12+ YRS VACCINE 2020-10-10 00:00:00 Completed [facility] SARS-COV-2 COVID-19 MODERNA 12+ YRS VACCINE 2020-10-10 00:00:00 Completed [facility] SARS-COV-2 COVID-19 MODERNA 12+ YRS VACCINE 2020-10-10 00:00:00 Completed [facility] SARS-COV-2 COVID-19 MODERNA 12+ YRS VACCINE 2020-10-10 00:00:00 Completed [facility] Influenza Virus Vaccine Quad .5 mL IM 6+ MO 2020-07-07 00:00:00 Completed [facility] Influenza Virus Vaccine Quad .5 mL IM 6+ MO 2020-07-07 00:00:00 Completed [facility] Influenza Virus Vaccine Quad .5 mL IM 6+ MO 2020-07-07 00:00:00 Completed [facility] Influenza Virus Vaccine Quad .5 mL IM 6+ MO 2020-07-07 00:00:00 Completed [facility] Influenza Virus Vaccine Quad .5 mL IM 6+ MO 2020-07-07 00:00:00 Completed [facility] Influenza Virus Vaccine Quad .5 mL IM 6+ MO 2020-07-07 00:00:00 Completed [facility] Influenza Virus Vaccine Quad .5 mL IM 6+ MO 2020-07-07 00:00:00 Completed [facility] Influenza Virus Vaccine Quad .5 mL IM 6+ MO 2020-07-07 00:00:00 Completed [facility] Influenza Virus Vaccine Quad .5 mL IM 6+ MO 2020-07-07 00:00:00 Completed [facility] Influenza Virus Vaccine Quad .5 mL IM + MO 2020-07-07 00:00:00 Completed [facility] Influenza Virus Vaccine Quad .5 mL IM 6+ MO 2020-07-07 00:00:00 Completed [facility] Influenza Virus Vaccine Quad .5 mL IM 6+ MO 2020-07-07 00:00:00 Completed [facility] Influenza Virus Vaccine Quad .5 mL IM 2020-07-07 00:00:00 Completed [facility] Influenza Virus Vaccine Quad .5 mL IM 6+ MO 2020-07-07 00:00:00 Completed [facility] Influenza Virus Vaccine Quad .5 mL IM + MO 2020-07-07 00:00:00 Completed [facility] Influenza Virus Vaccine Quad .5 mL IM 6+ MO 2020-07-07 00:00:00 Completed [facility] Influenza Virus Vaccine Quad .5 mL IM 6+ MO 2020-07-07 00:00:00 Completed [facility] Influenza Virus Vaccine Quad .5 mL IM 6+ MO 2020-07-07 00:00:00 Completed [facility] Influenza Virus Vaccine Quad .5 mL IM 6+ MO 2020-07-07 00:00:00 Completed [facility] Influenza Virus Vaccine Quad .5 mL IM 6+ MO 2020-07-07 00:00:00 Completed [facility] Influenza Virus Vaccine Quad .5 mL IM 6+ MO 2020-07-07 00:00:00 Completed [facility] Influenza Virus Vaccine Quad .5 mL IM 6+ MO 2020-07-07 00:00:00 Completed [facility] Influenza Virus Vaccine Quad .5 mL IM 6+ MO 2020-07-07 00:00:00 Completed [facility] Influenza Virus Vaccine Quad .5 mL IM 6+ MO 2020-07-07 00:00:00 Completed [facility] Influenza Virus Vaccine Quad .5 mL IM 6+ MO 2020-07-07 00:00:00 Completed [facility] Influenza Virus Vaccine Quad .5 mL IM 6+ MO 2020-07-07 00:00:00 Completed [facility] Influenza Virus Vaccine Quad .5 mL IM 6+ MO 2020-07-07 00:00:00 Completed [facility] Influenza Virus Vaccine Quad .5 mL IM 6+ MO 2020-07-07 00:00:00 Completed [facility] Influenza Virus Vaccine Quad .5 mL IM 6+ MO 2020-07-07 00:00:00 Completed [facility] Influenza Virus Vaccine Quad .5 mL IM 6+ MO 2020-07-07 00:00:00 Completed [facility] Influenza Virus Vaccine Quad .5 mL IM 6+ 2020-07-07 00:00:00 Completed [facility] Influenza Virus Vaccine Quad .5 mL IM 6+ MO 2020-07-07 00:00:00 Completed [facility] Influenza Virus Vaccine Quad .5 mL IM 6+ MO 2020-07-07 00:00:00 Completed [facility] Influenza Virus Vaccine Quad .5 mL IM 6+ MO 2020-07-07 00:00:00 Completed [facility] Influenza Virus Vaccine Quad .5 mL IM 6+ MO 2020-07-07 00:00:00 Completed [facility] Influenza Virus Vaccine Quad .5 mL IM 6+ MO 2020-07-07 00:00:00 Completed [facility] Influenza Virus Vaccine Quad .5 mL IM 6+ MO 2020-07-07 00:00:00 Completed [facility] Influenza Virus Vaccine Quad .5 mL IM 6+ MO 2020-07-07 00:00:00 Completed [facility] Influenza Virus Vaccine Quad .5 mL IM 6+ MO 2020-07-07 00:00:00 Completed [facility] Influenza Virus Vaccine Quad .5 mL IM 6+ MO 2020-07-07 00:00:00 Completed [facility] Influenza Virus Vaccine Quad .5 mL IM 6+ MO 2020-07-07 00:00:00 Completed [facility] Influenza Virus Vaccine Quad .5 mL IM 6+ MO 2020-07-07 00:00:00 Completed [facility] Influenza Virus Vaccine Quad .5 mL IM 6+ MO 2020-07-07 00:00:00 Completed [facility] Influenza Virus Vaccine Quad .5 mL IM 6+ MO 2020-07-07 00:00:00 Completed [facility] Influenza Virus Vaccine Quad .5 mL IM 6+ MO 2020-07-07 00:00:00 Completed [facility] Influenza Virus Vaccine Quad .5 mL IM 6+ MO 2020-07-07 00:00:00 Completed [facility] Influenza Virus Vaccine Quad .5 mL IM 6+ MO 2020-07-07 00:00:00 Completed [facility] Influenza Virus Vaccine Quad .5 mL IM 6+ MO 2020-07-07 00:00:00 Completed [facility] Influenza Virus Vaccine Quad .5 mL IM 6+ MO 2020-07-07 00:00:00 Completed [facility] Influenza Virus Vaccine Quad .5 mL IM 6+ MO 2020-07-07 00:00:00 Completed [facility] TDAP 2019-06-05 00:00:00 Completed [facility] TDAP 2019-06-05 00:00:00 Completed [facility] TDAP 2019-06-05 00:00:00 Completed [facility] TDAP 2019-06-05 00:00:00 Completed [facility] TDAP 2019-06-05 00:00:00 Completed [facility] TDAP 2019-06-05 00:00:00 Completed [facility] TDAP 2019-06-05 00:00:00 Completed [facility] TDAP 2019-06-05 00:00:00 Completed [facility] TDAP 2019-06-05 00:00:00 Completed [facility] TDAP 2019-06-05 00:00:00 Completed [facility] TDAP 2019-06-05 00:00:00 Completed [facility] TDAP 2019-06-05 00:00:00 Completed [facility] TDAP 2019-06-05 00:00:00 Completed [facility] TDAP 2019-06-05 00:00:00 Completed [facility] TDAP 2019-06-05 00:00:00 Completed [facility] TDAP 2019-06-05 00:00:00 Completed [facility] TDAP 2019-06-05 00:00:00 Completed [facility] TDAP 2019-06-05 00:00:00 Completed [facility] TDAP 2019-06-05 00:00:00 Completed [facility] [place] TDAP 2019-06-05 00:00:00 Completed [facility] TDAP 2019-06-05 00:00:00 Completed [facility] TDAP 2019-06-05 00:00:00 Completed [facility] [place] TDAP 2019-06-05 00:00:00 Completed [facility] TDAP 2019-06-05 00:00:00 Completed [facility] TDAP 2019-06-05 00:00:00 Completed [facility] TDAP 2019-06-05 00:00:00 Completed [facility] TDAP 2019-06-05 00:00:00 Completed [facility] TDAP 2019-06-05 00:00:00 Completed [facility] TDAP 2019-06-05 00:00:00 Completed [facility] TDAP 2019-06-05 00:00:00 Completed [facility] TDAP 2019-06-05 00:00:00 Completed [facility] TDAP 2019-06-05 00:00:00 Completed [facility] TDAP 2019-06-05 00:00:00 Completed [facility] TDAP 2019-06-05 00:00:00 Completed [facility] TDAP 2019-06-05 00:00:00 Completed [facility] TDAP 2019-06-05 00:00:00 Completed [facility] TDAP 2019-06-05 00:00:00 Completed [facility] TDAP 2019-06-05 00:00:00 Completed [facility] TDAP 2019-06-05 00:00:00 Completed [facility] TDAP 2019-06-05 00:00:00 Completed [facility] TDAP 2019-06-05 00:00:00 Completed [facility] TDAP 2019-06-05 00:00:00 Completed [facility] TDAP 2019-06-05 00:00:00 Completed [facility] TDAP 2019-06-05 00:00:00 Completed [facility] TDAP 2019-06-05 00:00:00 Completed [facility] TDAP 2019-06-05 00:00:00 Completed [facility] TDAP 2019-06-05 00:00:00 Completed [facility] TDAP 2019-06-05 00:00:00 Completed [facility] TDAP 2019-06-05 00:00:00 Completed [facility] TDAP 2019-06-05 00:00:00 Completed [facility] TDAP 2019-06-05 00:00:00 Completed [facility] Influenza Virus Vaccine Quad IM 3+ 2019-06-01 00:00:00 Completed [facility] Influenza Virus Vaccine Quad IM 3+ 2019-06-01 00:00:00 Completed [facility] Influenza Virus Vaccine Quad IM 3+ 2019-06-01 00:00:00 Completed [facility] Influenza Virus Vaccine Quad IM 3+ 2019-06-01 00:00:00 Completed [facility] Influenza Virus Vaccine Quad IM 3+ 2019-06-01 00:00:00 Completed [facility] Influenza Virus Vaccine Quad IM 3+ 2019-06-01 00:00:00 Completed [facility] Influenza Virus Vaccine Quad IM 3+ 2019-06-01 00:00:00 Completed [facility] Influenza Virus Vaccine Quad IM 3+ 2019-06-01 00:00:00 Completed [facility] Influenza Virus Vaccine Quad IM 3+ 2019-06-01 00:00:00 Completed [facility] Influenza Virus Vaccine Quad IM 3+ 2019-06-01 00:00:00 Completed [facility] Influenza Virus Vaccine Quad IM 3+ 2019-06-01 00:00:00 Completed [facility] Influenza Virus Vaccine Quad IM 3+ YRS 2019-06-01 00:00:00 Completed [facility] Influenza Virus Vaccine Quad IM 3+ YRS 2019-06-01 00:00:00 Completed [facility] Influenza Virus Vaccine Quad IM 3+ YRS 2019-06-01 00:00:00 Completed [facility] Influenza Virus Vaccine Quad IM 3+ YRS 2019-06-01 00:00:00 Completed [facility] Influenza Virus Vaccine Quad IM 3+ YRS 2019-06-01 00:00:00 Completed [facility] Influenza Virus Vaccine Quad IM 3+ YRS 2019-06-01 00:00:00 Completed [facility] Influenza Virus Vaccine Quad IM 3+ YRS 2019-06-01 00:00:00 Completed [facility] Influenza Virus Vaccine Quad IM 3+ YRS 2019-06-01 00:00:00 Completed [facility] Influenza Virus Vaccine Quad IM 3+ YRS 2019-06-01 00:00:00 Completed [facility] Influenza Virus Vaccine Quad IM 3+ YRS 2019-06-01 00:00:00 Completed [facility] Influenza Virus Vaccine Quad IM 3+ YRS 2019-06-01 00:00:00 Completed [facility] Influenza Virus Vaccine Quad IM 3+ YRS 2019-06-01 00:00:00 Completed [facility] Influenza Virus Vaccine Quad IM 3+ YRS 2019-06-01 00:00:00 Completed [facility] Influenza Virus Vaccine Quad IM 3+ YRS 2019-06-01 00:00:00 Completed [facility] Influenza Virus Vaccine Quad IM 3+ YRS 2019-06-01 00:00:00 Completed [facility] Influenza Virus Vaccine Quad IM 3+ YRS 2019-06-01 00:00:00 Completed [facility] Influenza Virus Vaccine Quad IM 3+ YRS 2019-06-01 00:00:00 Completed [facility] Influenza Virus Vaccine Quad IM 3+ YRS 2019-06-01 00:00:00 Completed [facility] Influenza Virus Vaccine Quad IM 3+ YRS 2019-06-01 00:00:00 Completed [facility] Influenza Virus Vaccine Quad IM 3+ YRS 2019-06-01 00:00:00 Completed [facility] Influenza Virus Vaccine Quad IM 3+ YRS 2019-06-01 00:00:00 Completed [facility] Influenza Virus Vaccine Quad IM 3+ YRS 2019-06-01 00:00:00 Completed [facility] Influenza Virus Vaccine Quad IM 3+ YRS 2019-06-01 00:00:00 Completed [facility] Influenza Virus Vaccine Quad IM 3+ YRS 2019-06-01 00:00:00 Completed [facility] Influenza Virus Vaccine Quad IM 3+ YRS 2019-06-01 00:00:00 Completed [facility] Influenza Virus Vaccine Quad IM 3+ YRS 2019-06-01 00:00:00 Completed [facility] Influenza Virus Vaccine Quad IM 3+ YRS 2019-06-01 00:00:00 Completed [facility] Influenza Virus Vaccine Quad IM 3+ YRS 2019-06-01 00:00:00 Completed [facility] Influenza Virus Vaccine Quad IM 3+ YRS 2019-06-01 00:00:00 Completed [facility] Influenza Virus Vaccine Quad IM 3+ YRS 2019-06-01 00:00:00 Completed [facility] Influenza Virus Vaccine Quad IM 3+ YRS 2019-06-01 00:00:00 Completed [facility] Influenza Virus Vaccine Quad IM 3+ YRS 2019-06-01 00:00:00 Completed [facility] Influenza Virus Vaccine Quad IM 3+ YRS 2019-06-01 00:00:00 Completed [facility] Influenza Virus Vaccine Quad IM 3+ YRS 2019-06-01 00:00:00 Completed [facility] Influenza Virus Vaccine Quad IM 3+ YRS 2019-06-01 00:00:00 Completed [facility] Influenza Virus Vaccine Quad IM 3+ YRS 2019-06-01 00:00:00 Completed [facility] Influenza Virus Vaccine Quad IM 3+ YRS 2019-06-01 00:00:00 Completed [facility] Influenza Virus Vaccine Quad IM 3+ YRS 2019-06-01 00:00:00 Completed [facility] Influenza Virus Vaccine Quad IM 3+ YRS 2019-06-01 00:00:00 Completed [facility] Influenza Virus Vaccine Quad IM 3+ YRS 2019-06-01 00:00:00 Completed [facility] Influenza Virus Vaccine Quad IM Multi-dose 6+ MO 2016-09-27 00:00:00 Completed [facility] Influenza Virus Vaccine Quad IM Multi-dose 6+ MO 2016-09-27 00:00:00 Completed [facility] Influenza Virus Vaccine Quad IM Multi-dose 6+ MO 2016-09-27 00:00:00 Completed [facility] Influenza Virus Vaccine Quad IM Multi-dose 6+ MO 2016-09-27 00:00:00 Completed [facility] Influenza Virus Vaccine Quad IM Multi-dose 6+ MO 2016-09-27 00:00:00 Completed [facility] Influenza Virus Vaccine Quad IM Multi-dose 6+ MO 2016-09-27 00:00:00 Completed [facility] Influenza Virus Vaccine Quad IM Multi-dose 6+ MO 2016-09-27 00:00:00 Completed [facility] Influenza Virus Vaccine Quad IM Multi-dose 6+ MO 2016-09-27 00:00:00 Completed [facility] Influenza Virus Vaccine Quad IM Multi-dose 6+ MO 2016-09-27 00:00:00 Completed [facility] Influenza Virus Vaccine Quad IM Multi-dose 6+ MO 2016-09-27 00:00:00 Completed [facility] Influenza Virus Vaccine Quad IM Multi-dose 6+ MO 2016-09-27 00:00:00 Completed [facility] Influenza Virus Vaccine Quad IM Multi-dose 6+ MO 2016-09-27 00:00:00 Completed [facility] Influenza Virus Vaccine Quad IM Multi-dose 6+ MO 2016-09-27 00:00:00 Completed [facility] Influenza Virus Vaccine Quad IM Multi-dose 6+ MO 2016-09-27 00:00:00 Completed [facility] Influenza Virus Vaccine Quad IM Multi-dose 6+ MO 2016-09-27 00:00:00 Completed [facility] Influenza Virus Vaccine Quad IM Multi-dose 6+ MO 2016-09-27 00:00:00 Completed [facility] Influenza Virus Vaccine Quad IM Multi-dose 6+ MO 2016-09-27 00:00:00 Completed [facility] Influenza Virus Vaccine Quad IM Multi-dose 6+ MO 2016-09-27 00:00:00 Completed [facility] Influenza Virus Vaccine Quad IM Multi-dose 6+ MO 2016-09-27 00:00:00 Completed [facility] Influenza Virus Vaccine Quad IM Multi-dose 6+ MO 2016-09-27 00:00:00 Completed [facility] Influenza Virus Vaccine Quad IM Multi-dose 6+ MO 2016-09-27 00:00:00 Completed [facility] Influenza Virus Vaccine Quad IM Multi-dose 6+ MO 2016-09-27 00:00:00 Completed [facility] Influenza Virus Vaccine Quad IM Multi-dose 6+ MO 2016-09-27 00:00:00 Completed [facility] Influenza Virus Vaccine Quad IM Multi-dose 6+ MO 2016-09-27 00:00:00 Completed [facility] Influenza Virus Vaccine Quad IM Multi-dose 6+ MO 2016-09-27 00:00:00 Completed [facility] Influenza Virus Vaccine Quad IM Multi-dose 6+ MO 2016-09-27 00:00:00 Completed [facility] Influenza Virus Vaccine Quad IM Multi-dose 6+ MO 2016-09-27 00:00:00 Completed [facility] Influenza Virus Vaccine Quad IM Multi-dose 6+ MO 2016-09-27 00:00:00 Completed [facility] Influenza Virus Vaccine Quad IM Multi-dose 6+ MO 2016-09-27 00:00:00 Completed [facility] Influenza Virus Vaccine Quad IM Multi-dose 6+ MO 2016-09-27 00:00:00 Completed [facility] Influenza Virus Vaccine Quad IM Multi-dose 6+ MO 2016-09-27 00:00:00 Completed [facility] Influenza Virus Vaccine Quad IM Multi-dose 6+ MO 2016-09-27 00:00:00 Completed [facility] Influenza Virus Vaccine Quad IM Multi-dose 6+ MO 2016-09-27 00:00:00 Completed [facility] Influenza Virus Vaccine Quad IM Multi-dose 6+ MO 2016-09-27 00:00:00 Completed [facility] Influenza Virus Vaccine Quad IM Multi-dose 6+ MO 2016-09-27 00:00:00 Completed [facility] Influenza Virus Vaccine Quad IM Multi-dose 6+ MO 2016-09-27 00:00:00 Completed [facility] Influenza Virus Vaccine Quad IM Multi-dose 6+ MO 2016-09-27 00:00:00 Completed [facility] Influenza Virus Vaccine Quad IM Multi-dose 6+ MO 2016-09-27 00:00:00 Completed [facility] Influenza Virus Vaccine Quad IM Multi-dose 6+ MO 2016-09-27 00:00:00 Completed [facility] Influenza Virus Vaccine Quad IM Multi-dose 6+ MO 2016-09-27 00:00:00 Completed [facility] Influenza Virus Vaccine Quad IM Multi-dose 6+ MO 2016-09-27 00:00:00 Completed [facility] Influenza Virus Vaccine Quad IM Multi-dose 6+ MO 2016-09-27 00:00:00 Completed [facility] Influenza Virus Vaccine Quad IM Multi-dose 6+ MO 2016-09-27 00:00:00 Completed [facility] Influenza Virus Vaccine Quad IM Multi-dose 6+ MO 2016-09-27 00:00:00 Completed [facility] Influenza Virus Vaccine Quad IM Multi-dose 6+ MO 2016-09-27 00:00:00 Completed [facility] Influenza Virus Vaccine Quad IM Multi-dose 6+ MO 2016-09-27 00:00:00 Completed [facility] Influenza Virus Vaccine Quad IM Multi-dose 6+ MO 2016-09-27 00:00:00 Completed [facility] Influenza Virus Vaccine Quad IM Multi-dose 6+ MO 2016-09-27 00:00:00 Completed [facility] Influenza Virus Vaccine Quad IM Multi-dose 6+ MO 2016-09-27 00:00:00 Completed [facility] Influenza Virus Vaccine Quad IM Multi-dose 6+ MO 2016-09-27 00:00:00 Completed [facility] Influenza Virus Vaccine Quad IM Multi-dose 6+ MO 2016-09-27 00:00:00 Completed [facility] Influenza Virus Vaccine Quad IM 3+ YRS 2015-08-22 00:00:00 Completed [facility] Influenza Virus Vaccine Quad IM 3+ YRS 2015-08-22 00:00:00 Completed [facility] Influenza Virus Vaccine Quad IM 3+ YRS 2015-08-22 00:00:00 Completed [facility] Influenza Virus Vaccine Quad IM 3+ YRS 2015-08-22 00:00:00 Completed [facility] Influenza Virus Vaccine Quad IM 3+ YRS 2015-08-22 00:00:00 Completed [facility] Influenza Virus Vaccine Quad IM 3+ YRS 2015-08-22 00:00:00 Completed [facility] Influenza Virus Vaccine Quad IM 3+ YRS 2015-08-22 00:00:00 Completed [facility] Influenza Virus Vaccine Quad IM 3+ YRS 2015-08-22 00:00:00 Completed [facility] Influenza Virus Vaccine Quad IM 3+ YRS 2015-08-22 00:00:00 Completed [facility] Influenza Virus Vaccine Quad IM 3+ YRS 2015-08-22 00:00:00 Completed [facility] Influenza Virus Vaccine Quad IM 3+ YRS 2015-08-22 00:00:00 Completed [facility] Influenza Virus Vaccine Quad IM 3+ YRS 2015-08-22 00:00:00 Completed [facility] Influenza Virus Vaccine Quad IM 3+ YRS 2015-08-22 00:00:00 Completed [facility] Influenza Virus Vaccine Quad IM 3+ YRS 2015-08-22 00:00:00 Completed [facility] Influenza Virus Vaccine Quad IM 3+ YRS 2015-08-22 00:00:00 Completed [facility] Influenza Virus Vaccine Quad IM 3+ YRS 2015-08-22 00:00:00 Completed [facility] Influenza Virus Vaccine Quad IM 3+ YRS 2015-08-22 00:00:00 Completed [facility] Influenza Virus Vaccine Quad IM 3+ YRS 2015-08-22 00:00:00 Completed [facility] Influenza Virus Vaccine Quad IM 3+ YRS 2015-08-22 00:00:00 Completed [facility] Influenza Virus Vaccine Quad IM 3+ YRS 2015-08-22 00:00:00 Completed [facility] Influenza Virus Vaccine Quad IM 3+ YRS 2015-08-22 00:00:00 Completed [facility] Influenza Virus Vaccine Quad IM 3+ YRS 2015-08-22 00:00:00 Completed [facility] Influenza Virus Vaccine Quad IM 3+ YRS 2015-08-22 00:00:00 Completed [facility] Influenza Virus Vaccine Quad IM 3+ YRS 2015-08-22 00:00:00 Completed [facility] Influenza Virus Vaccine Quad IM 3+ YRS 2015-08-22 00:00:00 Completed [facility] Influenza Virus Vaccine Quad IM 3+ YRS 2015-08-22 00:00:00 Completed [facility] Influenza Virus Vaccine Quad IM 3+ YRS 2015-08-22 00:00:00 Completed [facility] Influenza Virus Vaccine Quad IM 3+ YRS 2015-08-22 00:00:00 Completed [facility] Influenza Virus Vaccine Quad IM 3+ YRS 2015-08-22 00:00:00 Completed [facility] Influenza Virus Vaccine Quad IM 3+ YRS 2015-08-22 00:00:00 Completed [facility] Influenza Virus Vaccine Quad IM 3+ YRS 2015-08-22 00:00:00 Completed [facility] Influenza Virus Vaccine Quad IM 3+ YRS 2015-08-22 00:00:00 Completed [facility] Influenza Virus Vaccine Quad IM 3+ YRS 2015-08-22 00:00:00 Completed [facility] Influenza Virus Vaccine Quad IM 3+ YRS 2015-08-22 00:00:00 Completed [facility] Influenza Virus Vaccine Quad IM 3+ YRS 2015-08-22 00:00:00 Completed [facility] Influenza Virus Vaccine Quad IM 3+ YRS 2015-08-22 00:00:00 Completed [facility] Influenza Virus Vaccine Quad IM 3+ YRS 2015-08-22 00:00:00 Completed [facility] Influenza Virus Vaccine Quad IM 3+ YRS 2015-08-22 00:00:00 Completed [facility] Influenza Virus Vaccine Quad IM 3+ YRS 2015-08-22 00:00:00 Completed [facility] Influenza Virus Vaccine Quad IM 3+ YRS 2015-08-22 00:00:00 Completed [facility] Influenza Virus Vaccine Quad IM 3+ YRS 2015-08-22 00:00:00 Completed [facility] Influenza Virus Vaccine Quad IM 3+ YRS 2015-08-22 00:00:00 Completed [facility] Influenza Virus Vaccine Quad IM 3+ YRS 2015-08-22 00:00:00 Completed [facility] Influenza Virus Vaccine Quad IM 3+ YRS 2015-08-22 00:00:00 Completed [facility] Influenza Virus Vaccine Quad IM 3+ YRS 2015-08-22 00:00:00 Completed [facility] Influenza Virus Vaccine Quad IM 3+ YRS 2015-08-22 00:00:00 Completed [facility] Influenza Virus Vaccine Quad IM 3+ YRS 2015-08-22 00:00:00 Completed [facility] Influenza Virus Vaccine Quad IM 3+ YRS 2015-08-22 00:00:00 Completed [facility] Influenza Virus Vaccine Quad IM 3+ YRS 2015-08-22 00:00:00 Completed [facility] Influenza Virus Vaccine Quad IM 3+ YRS 2015-08-22 00:00:00 Completed [facility] Influenza Virus Vaccine Quad IM 3+ YRS 2015-08-22 00:00:00 Completed [facility] Pneumococcal Polysaccharide, PPSV23 (PNEUMOVAX) 2013-08-10 00:00:00 Completed [facility] Pneumococcal Polysaccharide, PPSV23 (PNEUMOVAX) 2013-08-10 00:00:00 Completed [facility] Pneumococcal Polysaccharide, PPSV23 (PNEUMOVAX) 2013-08-10 00:00:00 Completed [facility] Pneumococcal Polysaccharide, PPSV23 (PNEUMOVAX) 2013-08-10 00:00:00 Completed [facility] Pneumococcal Polysaccharide, PPSV23 (PNEUMOVAX) 2013-08-10 00:00:00 Completed [facility] Pneumococcal Polysaccharide, PPSV23 (PNEUMOVAX) 2013-08-10 00:00:00 Completed [facility] Pneumococcal Polysaccharide, PPSV23 (PNEUMOVAX) 2013-08-10 00:00:00 Completed [facility] Pneumococcal Polysaccharide, PPSV23 (PNEUMOVAX) 2013-08-10 00:00:00 Completed [facility] Pneumococcal Polysaccharide, PPSV23 (PNEUMOVAX) 2013-08-10 00:00:00 Completed [facility] Pneumococcal Polysaccharide, PPSV23 (PNEUMOVAX) 2013-08-10 00:00:00 Completed [facility] Pneumococcal Polysaccharide, PPSV23 (PNEUMOVAX) 2013-08-10 00:00:00 Completed [facility] Pneumococcal Polysaccharide, PPSV23 (PNEUMOVAX) 2013-08-10 00:00:00 Completed [facility] Pneumococcal Polysaccharide, PPSV23 (PNEUMOVAX) 2013-08-10 00:00:00 Completed [facility] Pneumococcal Polysaccharide, PPSV23 (PNEUMOVAX) 2013-08-10 00:00:00 Completed [facility] Pneumococcal Polysaccharide, PPSV23 (PNEUMOVAX) 2013-08-10 00:00:00 Completed [facility] Pneumococcal Polysaccharide, PPSV23 (PNEUMOVAX) 2013-08-10 00:00:00 Completed [facility] Pneumococcal Polysaccharide, PPSV23 (PNEUMOVAX) 2013-08-10 00:00:00 Completed [facility] Pneumococcal Polysaccharide, PPSV23 (PNEUMOVAX) 2013-08-10 00:00:00 Completed [facility] Pneumococcal Polysaccharide, PPSV23 (PNEUMOVAX) 2013-08-10 00:00:00 Completed [facility] Pneumococcal Polysaccharide, PPSV23 (PNEUMOVAX) 2013-08-10 00:00:00 Completed [facility] Pneumococcal Polysaccharide, PPSV23 (PNEUMOVAX) 2013-08-10 00:00:00 Completed [facility] Pneumococcal Polysaccharide, PPSV23 (PNEUMOVAX) 2013-08-10 00:00:00 Completed [facility] Pneumococcal Polysaccharide, PPSV23 (PNEUMOVAX) 2013-08-10 00:00:00 Completed [facility] Pneumococcal Polysaccharide, PPSV23 (PNEUMOVAX) 2013-08-10 00:00:00 Completed [facility] Pneumococcal Polysaccharide, PPSV23 (PNEUMOVAX) 2013-08-10 00:00:00 Completed [facility] Pneumococcal Polysaccharide, PPSV23 (PNEUMOVAX) 2013-08-10 00:00:00 Completed [facility] Pneumococcal Polysaccharide, PPSV23 (PNEUMOVAX) 2013-08-10 00:00:00 Completed [facility] Pneumococcal Polysaccharide, PPSV23 (PNEUMOVAX) 2013-08-10 00:00:00 Completed [facility] Pneumococcal Polysaccharide, PPSV23 (PNEUMOVAX) 2013-08-10 00:00:00 Completed [facility] Pneumococcal Polysaccharide, PPSV23 (PNEUMOVAX) 2013-08-10 00:00:00 Completed [facility] Pneumococcal Polysaccharide, PPSV23 (PNEUMOVAX) 2013-08-10 00:00:00 Completed [facility] Pneumococcal Polysaccharide, PPSV23 (PNEUMOVAX) 2013-08-10 00:00:00 Completed [facility] Pneumococcal Polysaccharide, PPSV23 (PNEUMOVAX) 2013-08-10 00:00:00 Completed [facility] Pneumococcal Polysaccharide, PPSV23 (PNEUMOVAX) 2013-08-10 00:00:00 Completed [facility] Pneumococcal Polysaccharide, PPSV23 (PNEUMOVAX) 2013-08-10 00:00:00 Completed [facility] Pneumococcal Polysaccharide, PPSV23 (PNEUMOVAX) 2013-08-10 00:00:00 Completed [facility] Pneumococcal Polysaccharide, PPSV23 (PNEUMOVAX) 2013-08-10 00:00:00 Completed [facility] Pneumococcal Polysaccharide, PPSV23 (PNEUMOVAX) 2013-08-10 00:00:00 Completed [facility] Pneumococcal Polysaccharide, PPSV23 (PNEUMOVAX) 2013-08-10 00:00:00 Completed [facility] Pneumococcal Polysaccharide, PPSV23 (PNEUMOVAX) 2013-08-10 00:00:00 Completed [facility] Pneumococcal Polysaccharide, PPSV23 (PNEUMOVAX) 2013-08-10 00:00:00 Completed [facility] Pneumococcal Polysaccharide, PPSV23 (PNEUMOVAX) 2013-08-10 00:00:00 Completed [facility] Pneumococcal Polysaccharide, PPSV23 (PNEUMOVAX) 2013-08-10 00:00:00 Completed [facility] Pneumococcal Polysaccharide, PPSV23 (PNEUMOVAX) 2013-08-10 00:00:00 Completed [facility] Pneumococcal Polysaccharide, PPSV23 (PNEUMOVAX) 2013-08-10 00:00:00 Completed [facility] Pneumococcal Polysaccharide, PPSV23 (PNEUMOVAX) 2013-08-10 00:00:00 Completed [facility] Pneumococcal Polysaccharide, PPSV23 (PNEUMOVAX) 2013-08-10 00:00:00 Completed [facility] Pneumococcal Polysaccharide, PPSV23 (PNEUMOVAX) 2013-08-10 00:00:00 Completed [facility] Pneumococcal Polysaccharide, PPSV23 (PNEUMOVAX) 2013-08-10 00:00:00 Completed [facility] Pneumococcal Polysaccharide, PPSV23 (PNEUMOVAX) 2013-08-10 00:00:00 Completed [facility] Pneumococcal Polysaccharide, PPSV23 (PNEUMOVAX) 2013-08-10 00:00:00 Completed [facility] TDAP (ADACEL) VACCINE 2008-02-07 00:00:00 Completed [facility] TDAP (ADACEL) VACCINE 2008-02-07 00:00:00 Completed [facility] TDAP (ADACEL) VACCINE 2008-02-07 00:00:00 Completed [facility] TDAP (ADACEL) VACCINE 2008-02-07 00:00:00 Completed [facility] TDAP (ADACEL) VACCINE 2008-02-07 00:00:00 Completed [facility] TDAP (ADACEL) VACCINE 2008-02-07 00:00:00 Completed [facility] TDAP (ADACEL) VACCINE 2008-02-07 00:00:00 Completed [facility] TDAP (ADACEL) VACCINE 2008-02-07 00:00:00 Completed [facility] TDAP (ADACEL) VACCINE 2008-02-07 00:00:00 Completed [facility] TDAP (ADACEL) VACCINE 2008-02-07 00:00:00 Completed [facility] TDAP (ADACEL) VACCINE 2008-02-07 00:00:00 Completed [facility] TDAP (ADACEL) VACCINE 2008-02-07 00:00:00 Completed [facility] TDAP (ADACEL) VACCINE 2008-02-07 00:00:00 Completed [facility] TDAP (ADACEL) VACCINE 2008-02-07 00:00:00 Completed [facility] TDAP (ADACEL) VACCINE 2008-02-07 00:00:00 Completed [facility] TDAP (ADACEL) VACCINE 2008-02-07 00:00:00 Completed [facility] TDAP (ADACEL) VACCINE 2008-02-07 00:00:00 Completed [facility] TDAP (ADACEL) VACCINE 2008-02-07 00:00:00 Completed [facility] TDAP (ADACEL) VACCINE 2008-02-07 00:00:00 Completed [facility] TDAP (ADACEL) VACCINE 2008-02-07 00:00:00 Completed [facility] TDAP (ADACEL) VACCINE 2008-02-07 00:00:00 Completed [facility] TDAP (ADACEL) VACCINE 2008-02-07 00:00:00 Completed [facility] TDAP (ADACEL) VACCINE 2008-02-07 00:00:00 Completed [facility] TDAP (ADACEL) VACCINE 2008-02-07 00:00:00 Completed [facility] TDAP (ADACEL) VACCINE 2008-02-07 00:00:00 Completed [facility] TDAP (ADACEL) VACCINE 2008-02-07 00:00:00 Completed [facility] TDAP (ADACEL) VACCINE 2008-02-07 00:00:00 Completed [facility] TDAP (ADACEL) VACCINE 2008-02-07 00:00:00 Completed [facility] TDAP (ADACEL) VACCINE 2008-02-07 00:00:00 Completed [facility] TDAP (ADACEL) VACCINE 2008-02-07 00:00:00 Completed [facility] TDAP (ADACEL) VACCINE 2008-02-07 00:00:00 Completed [facility] TDAP (ADACEL) VACCINE 2008-02-07 00:00:00 Completed [facility] TDAP (ADACEL) VACCINE 2008-02-07 00:00:00 Completed [facility] TDAP (ADACEL) VACCINE 2008-02-07 00:00:00 Completed [facility] TDAP (ADACEL) VACCINE 2008-02-07 00:00:00 Completed [facility] TDAP (ADACEL) VACCINE 2008-02-07 00:00:00 Completed [facility] TDAP (ADACEL) VACCINE 2008-02-07 00:00:00 Completed [facility] TDAP (ADACEL) VACCINE 2008-02-07 00:00:00 Completed [facility] TDAP (ADACEL) VACCINE 2008-02-07 00:00:00 Completed [facility] TDAP (ADACEL) VACCINE 2008-02-07 00:00:00 Completed [facility] TDAP (ADACEL) VACCINE 2008-02-07 00:00:00 Completed [facility] TDAP (ADACEL) VACCINE 2008-02-07 00:00:00 Completed [facility] TDAP (ADACEL) VACCINE 2008-02-07 00:00:00 Completed [facility] TDAP (ADACEL) VACCINE 2008-02-07 00:00:00 Completed [facility] TDAP (ADACEL) VACCINE 2008-02-07 00:00:00 Completed [facility] TDAP (ADACEL) VACCINE 2008-02-07 00:00:00 Completed [facility] TDAP (ADACEL) VACCINE 2008-02-07 00:00:00 Completed [facility] TDAP (ADACEL) VACCINE 2008-02-07 00:00:00 Completed [facility] TDAP (ADACEL) VACCINE 2008-02-07 00:00:00 Completed [facility] TDAP (ADACEL) VACCINE 2008-02-07 00:00:00 Completed [facility] TDAP (ADACEL) VACCINE 2008-02-07 00:00:00 Completed [facility] Pneumococcal Polysaccharide, PPSV23 (PNEUMOVAX) Unknown Completed [facility] TDAP (ADACEL) VACCINE Unknown Completed [facility] Influenza Virus Vaccine Quad IM 3+ YRS Unknown Completed [facility] Influenza Virus Vaccine Quad IM Multi-dose 6+ MO Unknown Completed [facility] TDAP Unknown Completed [facility] Influenza Virus Vaccine Quad IM 3+ YRS Unknown Completed [facility] Influenza Virus Vaccine Quad .5 mL IM 6+ MO (FLUZONE/FLULAVAL/F LUARIX) Unknown Completed [facility] SARS-COV-2 COVID-19 MODERNA 12+ YRS VACCINE Unknown Completed [facility] SARS-COV-2 COVID-19 MODERNA 12+ YRS VACCINE Unknown Completed [facility] Pneumococcal Polysaccharide, PPSV23 (PNEUMOVAX) Unknown Completed [facility] TDAP (ADACEL) VACCINE Unknown Completed [facility] Influenza Virus Vaccine Quad IM 3+ YRS Unknown Completed [facility] Influenza Virus Vaccine Quad IM Multi-dose 6+ MO Unknown Completed [facility] TDAP Unknown Completed [facility] Influenza Virus Vaccine Quad IM 3+ YRS Unknown Completed [facility] Influenza Virus Vaccine Quad .5 mL IM 6+ MO (FLUZONE/FLULAVAL/F LUARIX) Unknown Completed [facility] SARS-COV-2 COVID-19 MODERNA 12+ YRS VACCINE Unknown Completed [facility] SARS-COV-2 COVID-19 MODERNA 12+ YRS VACCINE Unknown Completed [facility] Pneumococcal Polysaccharide, PPSV23 (PNEUMOVAX) Unknown Completed [facility] TDAP (ADACEL) VACCINE Unknown Completed [facility] Influenza Virus Vaccine Quad IM 3+ YRS Unknown Completed [facility] Influenza Virus Vaccine Quad IM Multi-dose 6+ MO Unknown Completed [facility] TDAP Unknown Completed [facility] Influenza Virus Vaccine Quad IM 3+ YRS Unknown Completed [facility] Influenza Virus Vaccine Quad .5 mL IM 6+ MO (FLUZONE/FLULAVAL/F LUARIX) Unknown Completed [facility] SARS-COV-2 COVID-19 MODERNA 12+ YRS VACCINE Unknown Completed [facility] SARS-COV-2 COVID-19 MODERNA 12+ YRS VACCINE Unknown Completed [facility] Pneumococcal Polysaccharide, PPSV23 (PNEUMOVAX) Unknown Completed [facility] TDAP (ADACEL) VACCINE Unknown Completed [facility] Influenza Virus Vaccine Quad IM 3+ YRS Unknown Completed [facility] Influenza Virus Vaccine Quad IM Multi-dose 6+ MO Unknown Completed [facility] TDAP Unknown Completed [facility] Influenza Virus Vaccine Quad IM 3+ YRS Unknown Completed [facility] Influenza Virus Vaccine Quad .5 mL IM 6+ MO (FLUZONE/FLULAVAL/F LUARIX) Unknown Completed [facility] SARS-COV-2 COVID-19 MODERNA 12+ YRS VACCINE Unknown Completed [facility] SARS-COV-2 COVID-19 MODERNA 12+ YRS VACCINE Unknown Completed [facility] Pneumococcal Polysaccharide, PPSV23 (PNEUMOVAX) Unknown Completed [facility] TDAP (ADACEL) VACCINE Unknown Completed [facility] Influenza Virus Vaccine Quad IM 3+ YRS Unknown Completed [facility] Influenza Virus Vaccine Quad IM Multi-dose 6+ MO Unknown Completed [facility] TDAP Unknown Completed [facility] Influenza Virus Vaccine Quad IM 3+ YRS Unknown Completed [facility] Influenza Virus Vaccine Quad .5 mL IM 6+ MO (FLUZONE/FLULAVAL/F LUARIX) Unknown Completed [facility] SARS-COV-2 COVID-19 MODERNA 12+ YRS VACCINE Unknown Completed [facility] SARS-COV-2 COVID-19 MODERNA 12+ YRS VACCINE Unknown Completed [facility] Pneumococcal Polysaccharide, PPSV23 (PNEUMOVAX) Unknown Completed [facility] TDAP (ADACEL) VACCINE Unknown Completed [facility] Influenza Virus Vaccine Quad IM 3+ YRS Unknown Completed [facility] Influenza Virus Vaccine Quad IM Multi-dose 6+ MO Unknown Completed [facility] TDAP Unknown Completed [facility] Influenza Virus Vaccine Quad IM 3+ YRS Unknown Completed [facility] Influenza Virus Vaccine Quad .5 mL IM 6+ MO (FLUZONE/FLULAVAL/F LUARIX) Unknown Completed [facility] SARS-COV-2 COVID-19 MODERNA 12+ YRS VACCINE Unknown Completed [facility] SARS-COV-2 COVID-19 MODERNA 12+ YRS VACCINE Unknown Completed [facility] Pneumococcal Polysaccharide, PPSV23 (PNEUMOVAX) Unknown Completed [facility] TDAP (ADACEL) VACCINE Unknown Completed [facility] Influenza Virus Vaccine Quad IM 3+ YRS Unknown Completed [facility] Influenza Virus Vaccine Quad IM Multi-dose 6+ MO Unknown Completed [facility] TDAP Unknown Completed [facility] Influenza Virus Vaccine Quad IM 3+ YRS Unknown Completed [facility] Influenza Virus Vaccine Quad .5 mL IM 6+ MO (FLUZONE/FLULAVAL/F LUARIX) Unknown Completed [facility] SARS-COV-2 COVID-19 MODERNA 12+ YRS VACCINE Unknown Completed [facility] SARS-COV-2 COVID-19 MODERNA 12+ YRS VACCINE Unknown Completed [facility] Pneumococcal Polysaccharide, PPSV23 (PNEUMOVAX) Unknown Completed [facility] TDAP (ADACEL) VACCINE Unknown Completed [facility] Influenza Virus Vaccine Quad IM 3+ YRS Unknown Completed [facility] Influenza Virus Vaccine Quad IM Multi-dose 6+ MO Unknown Completed [facility] TDAP Unknown Completed [facility] Influenza Virus Vaccine Quad IM 3+ YRS Unknown Completed [facility] Influenza Virus Vaccine Quad .5 mL IM 6+ MO (FLUZONE/FLULAVAL/F LUARIX) Unknown Completed [facility] SARS-COV-2 COVID-19 MODERNA 12+ YRS VACCINE Unknown Completed [facility] SARS-COV-2 COVID-19 MODERNA 12+ YRS VACCINE Unknown Completed [facility] Pneumococcal Polysaccharide, PPSV23 (PNEUMOVAX) Unknown Completed [facility] TDAP (ADACEL) VACCINE Unknown Completed [facility] Influenza Virus Vaccine Quad IM 3+ YRS Unknown Completed [facility] Influenza Virus Vaccine Quad IM Multi-dose 6+ MO Unknown Completed [facility] TDAP Unknown Completed [facility] Influenza Virus Vaccine Quad IM 3+ YRS Unknown Completed [facility] Influenza Virus Vaccine Quad .5 mL IM 6+ MO (FLUZONE/FLULAVAL/F LUARIX) Unknown Completed [facility] SARS-COV-2 COVID-19 MODERNA 12+ YRS VACCINE Unknown Completed [facility] SARS-COV-2 COVID-19 MODERNA 12+ YRS VACCINE Unknown Completed [facility] Vital Signs Vital Name Observation Time Observation Value Comments S ource Systolic blood pressure 2022-12-18 20:22:00 137 mm[Hg] [facility] Diastolic blood pressure 2022-12-18 20:22:00 80 mm[Hg] [facility] Heart rate 2022-12-18 20:22:00 66 /min [facility] Body temperature 2022-12-18 20:22:00 36.11 Su [facility] Respiratory rate 2022-12-18 20:22:00 17 /min [facility] Body height 2022-12-18 20:22:00 162.6 cm [facility] Body weight 2022-12-18 20:22:00 90.855 kg [facility] BMI 2022-12-18 20:22:00 34.38 kg/m2 [facility] Oxygen saturation in Arterial blood by Pulse oximetry 2022-12-18 20:22:00 96 /min [facility] Systolic blood pressure 2022-11-08 17:49:00 137 mm[Hg] [facility] Diastolic blood pressure 2022-11-08 17:49:00 76 mm[Hg] [facility] Heart rate 2022-11-08 17:49:00 65 /min [facility] Body temperature 2022-11-08 17:49:00 36.61 Su [facility] Respiratory rate 2022-11-08 17:49:00 19 /min [facility] Oxygen saturation in Arterial blood by Pulse oximetry 2022-11-08 17:49:00 96 /min [facility] Body height 2022-11-08 00:41:00 162.6 cm [facility] Body weight 2022-11-08 00:41:00 88.451 kg [facility] BMI 2022-11-08 00:41:00 33.45 kg/m2 [facility] Systolic blood pressure 2022-11-07 20:23:57 205 mm[Hg] [facility] Diastolic blood pressure 2022-11-07 20:23:57 88 mm[Hg] [facility] Heart rate 2022-11-07 20:23:57 67 /min [facility] Respiratory rate 2022-11-07 20:23:57 18 /min [facility] Oxygen saturation in Arterial blood by Pulse oximetry 2022-11-07 20:23:57 100 /min [facility] Body height 2022-11-07 20:08:56 162.6 cm [facility] Body weight 2022-11-07 20:08:56 88.451 kg [facility] BMI 2022-11-07 20:08:56 33.45 kg/m2 [facility] Body temperature 2022-11-07 18:33:00 35.67 Su [facility] Systolic blood pressure 2022-10-03 21:00:00 138 mm[Hg] [facility] Diastolic blood pressure 2022-10-03 21:00:00 58 mm[Hg] [facility] Heart rate 2022-10-03 21:00:00 63 /[facility] 2022-10-03 21:00:00 36.44 Su [facility] Body height 2022-10-03 21:00:00 162.6 cm [facility] Body weight 2022-10-03 21:00:00 94.031 kg [facility] BMI 2022-10-03 21:00:00 35.58 kg/m2 [facility] Oxygen saturation in Arterial blood by Pulse oximetry 2022-10-03 21:00:00 94 /min [facility] Systolic blood pressure 2022-09-23 19:43:00 120 mm[Hg] [facility] Diastolic blood pressure 2022-09-23 19:43:00 57 mm[Hg] [facility] Heart rate 2022-09-23 19:43:00 72 /min [facility] Body temperature 2022-09-23 19:43:00 36.67 Su [facility] Body height 2022-09-23 19:43:00 162.6 cm [facility] Body weight 2022-09-23 19:43:00 91.853 kg [facility] BMI 2022-09-23 19:43:00 34.76 kg/m2 [facility] Oxygen saturation in Arterial blood by Pulse oximetry 2022-09-23 19:43:00 94 /min [facility] Systolic blood pressure 2022-09-19 17:09:00 158 mm[Hg] [facility] Diastolic blood pressure 2022-09-19 17:09:00 75 mm[Hg] [facility] Heart rate 2022-09-19 17:09:00 62 /min [facility] Body temperature 2022-09-19 17:09:00 36.22 Su [facility] Respiratory rate 2022-09-19 17:09:00 18 /min [facility] Oxygen saturation in Arterial blood by Pulse oximetry 2022-09-19 17:09:00 93 /min [facility] Body weight 2022-09-19 10:01:00 94.575 kg [facility] BMI 2022-09-19 10:01:00 35.79 kg/m2 [facility] Body height 2022-09-17 09:52:00 162.6 cm [facility] Systolic blood pressure 2022-03-22 20:25:00 147 mm[Hg] [facility] Diastolic blood pressure 2022-03-22 20:25:00 64 mm[Hg] [facility] Heart rate 2022-03-22 20:25:00 60 /min [facility] Oxygen saturation in Arterial blood by Pulse oximetry 2022-03-22 20:25:00 99 /min [facility] Body temperature 2022-03-22 20:23:00 36.28 Su [facility] Respiratory rate 2022-03-22 20:23:00 17 /min [facility] Body weight 2022-03-22 20:23:00 93.033 kg [facility] BMI 2022-03-22 20:23:00 35.21 kg/m2 [facility] Systolic blood pressure 2022-01-09 18:15:00 144 mm[Hg] [facility] Diastolic blood pressure 2022-01-09 18:15:00 65 mm[Hg] [facility] Heart rate 2022-01-09 18:11:00 58 /min [facility] Respiratory rate 2022-01-09 18:11:00 18 /min [facility] Body height 2022-01-09 18:11:00 162.6 cm [facility] Body weight 2022-01-09 18:11:00 90.855 kg [facility] BMI 2022-01-09 18:11:00 34.38 kg/m2 [facility] Oxygen saturation in Arterial blood by Pulse oximetry 2022-01-09 18:11:00 96 /min [facility] Procedures Procedure Date / Time Performed Performing Clinician Source EXTERNAL PROVIDER RECORDS 2023-10-07 06:01:00 Do ctor Unassigned, Michie [facility] AUTHORIZATION FOR RELEASE OF PHI 2023-10-03 06:01:00 Doctor Unassigned, Michie [facility] AUTHORIZATION FOR RELEASE OF PHI 2023-09-30 06:01:00 Doctor Unassigned, Michie [facility] AUTHORIZATION FOR RELEASE OF PHI 2023-09-11 06:01:00 Doctor Unassigned, Michie [facility] SLEEP STUDY DATA REPORT 2023-02-20 05:01:00 Doct or Unassigned, Michie [facility] MEDICAL RELEASE/CLEARANCE FORMS 2023-02-10 05:01:00 Doctor Unassigned, Michie [facility] XR CHEST 1 VW 2022-11-07 23:24:39 Kirill Corona [facility] XR CHEST 1 VW 2022-11-07 23:24:39 [facility] 2022-11-07 [facility]:50[facility] 2022-11-07 21:50:00 [facility] 2022-11-07 20:41:05 [facility] 2022-11-07 20:41:05 Len Estebanf Un [facility] HB ECG ROUTINE & RHYTHM STRIP 2022-11-07 19:06:44 Carlito [facility] ASSIGNMENT OF BENEFITS 2022-11-07 17:53:08 Docto r Unassigned, Michie [facility] POCT GLUCOSE (AUTOMATED) 2022-09-19 17:29:00 Humberto Russell [facility] POCT GLUCOSE (AUTOMATED) 2022-09-19 13:40:00 [facility]to [facility] POCT GLUCOSE (AUTOMATED) 2022-09-19 01:48:00 [facility]to [facility] POCT GLUCOSE (AUTOMATED) 2022-09-18 22:36:00 Humberto Russell [facility] POCT GLUCOSE (AUTOMATED) 2022-09-18 17:20:00 Humberto [facility] POCT GLUCOSE (AUTOMATED) 2022-09-18 13:48:00 Russell Mercado [facility] TROPONIN I 2022-09-18 10:37:00 Bruce Bates [facility] BASIC METABOLIC PANEL (NA, K, CL, CO2, GLUCOSE, BUN, CREATININE, CA) 2022-09-18 10:37:00 Francine Hein [facility] LIPID PANEL (65488)(TOTAL CHOLESTEROL, TRIGLYCERIDES, HDL) 2022-09-18 10:37:00 Bruce BatesHDrew [facility] N-TERMINAL PRO-BNP 2022-09-18 10:37:00 Bruce Bates.HDrew [facility] POCT GLUCOSE (AUTOMATED) 2022-09-18 02:57:00 Humberto [facility] POCT GLUCOSE (AUTOMATED) 2022-09-17 22:33:00 Russell Mercado [facility] MAGNESIUM 2022-09-17 20:25:00 Russell Mercado [facility] BASIC METABOLIC PANEL (NA, K, CL, CO2, GLUCOSE, BUN, CREATININE, CA) 2022-09-17 20:25:00 Russell Mercado [facility] TRANSTHORACIC ECHO (TTE) COMPLETE 2022-09-17 19:43:00 Humberto [facility] POCT GLUCOSE (AUTOMATED) 2022-09-17 17:33:00 Humberto [facility] POCT GLUCOSE (AUTOMATED) 2022-09-17 13:43:00 Humberto [facility] TROPONIN I 2022-09-17 10:44:00 Jade Grayson [facility] CBC WITH DIFF 2022-09-17 10:44:00 [facility] 2022-09-16 22:00:00 Jacki Samuels [facility] XR CHEST 1 VW 2022-09-16 21:37:25 Jacki Samuels [facility] HB ECG ROUTINE & RHYTHM STRIP 2022-09-16 21:23:34 Jacki Samuels [facility] MAGNESIUM 2022-09-16 21:19:00 Jacki Samuels Un [facility] TROPONIN I 2022-09-16 21:19:00 Jacki Samuels [facility] THYROID STIMULATING HORMONE 2022-09-16 21:19:00 Jacki Razo ms [facility] COMP. METABOLIC PANEL (94694) 2022-09-16 21:19:00 Jacki Samuels [facility] CBC WITH DIFF 2022-09-16 21:19:00 Jacki Samuels [facility] GLYCOSYLATED HEMOGLOBIN (A1C) 2022-09-16 21:19:00 Edionwe, [facility] HB ECG ROUTINE & RHYTHM STRIP 2022-09-16 21:13:59 Jacki Samuels [facility] NOTICE OF PRIVACY PRACTICES 2022-09-16 20:53:33 Doctor Unassigned, Michie [facility] CONSENT/REFUSAL FOR DIAGNOSIS AND TREATMENT 2022-09-16 20:53:06 Doctor Unassigned, Michie [facility] MEDICAL RELEASE/CLEARANCE FORMS 2022-07-10 06:01:00 Doctor Unassigned, Michie [facility] DME/SUPPLY JUSTIFICATION 2022-06-04 05:01:00 Doc tor Unassigned, Michie [facility] DME/SUPPLY JUSTIFICATION 2019-12-19 05:01:00 Doc mike Unassigned, Michie [facility] Encounters Start Date/Time End Date/Time Encounter Type Admission Type Attending [facility] Care Department Encounter ID Source 2023-12-29 00:00:00 2023-12-29 23:59:00 Outpatient ALEXEY CLARKE [facility] [id number] [facility] 2023-12-29 00:00:00 2023-12-29 23:59:00 Hospital Encounter Alexey Clarke [facility] 1..840.114 350.1.13.10 4.2.7.2.686 [id number] [facility] 2023-10-29 00:00:00 2023-10-29 00:00:00 Patient Secure Msg Doctor Unassigned, Michie [facility] 1..840.114 350.1.13.10 4.2.7.2.686 [id number] [facility] 2023-10-07 00:00:00 2023-10-07 00:00:00 Orders Only Doctor Unassigned, Michie [facility] 1..840.114 350.1.13.10 4.2.7.2.686 [id number] [facility] 2023-10-03 00:00:00 2023-10-03 00:00:00 Orders Only Doctor Unassigned, Michie [facility] 1.2840.114 350.1.13.10 4.2.7.2.686 [id number] [facility] 2023-09-30 00:00:00 2023-09-30 00:00:00 Orders Only Doctor Unassigned, Michie [facility] 1.2840.114 350.1.13.10 4.2.7.2.686 [id number] [facility] 2023-09-12 00:00:00 2023-09-12 00:00:00 Telephone Bruce Bates [facility] 1.2840.114 350.1.13.10 4.2.7.2.686 [id number] [facility] 2023-09-11 00:00:00 2023-09-11 00:00:00 Orders Only Doctor Unassigned, Michie [facility] 1.2840.114 350.1.13.10 4.2.7.2.686 [id number] [facility] 2023-07-03 11:30:00 2023-07-03 11:30:00 Outpatient RICARDO DOMINGUEZ [facility] [id number] [facility] 2023-06-30 00:00:00 2023-06-30 23:59:00 Outpatient R JESSIE MENDOZA [facility] [id number] [facility] 2023-06-30 00:00:00 2023-06-30 23:59:00 [facility] 1.2840.114 350.1.13.10 4.2.7.2.686 [id number] [facility] 2023-06-04 11:00:00 2023-06-04 11:00:00 Outpatient R GIUSEPPEJANEDARA, ANGELICACUCAL GIUSEPPEJANEDARA, [facility]AH[facility] [id number] [facility] 2023-05-21 20:00:00 2023-05-21 20:00:00 Outpatient R GIUSEPPEJANEDARA, ANEGLICACUCAL GIUSEPPEJANEDARA, [facility] [id number] [facility] 2023-04-23 14:30:00 2023-04-23 14:30:00 Outpatient R HARMEET, ANGELICACUCAL HARMEET, [facility] [id number] [facility] 2023-04-21 14:30:00 2023-04-21 14:30:00 Outpatient BRUCE MERCADO [facility] [id number] [facility] 2023-04-17 00:00:00 2023-04-17 00:00:00 Bruce Rondon [facility] 1.2.840.114 350.1.13.10 4.2.7.2.686 [id number] [facility] 2023-03-21 11:00:00 2023-03-21 11:00:00 Outpatient EDUARDO BERRIOS [facility] [id number] [facility] 2023-02-20 20:00:00 2023-02-20 22:30:00 Natural Science Manager Visit 1, [facility] Bed Lottie Truong [facility] ..840.114 350.1.13.10 4.2.7.2.686 [id number] [facility] 2023-02-20 20:00:00 2023-02-20 20:00:00 Outpatient R GIUSEPPEJANEANGELICA DIAMONDCUCAL GIUSEPPEJANEDARA, [facility] [id number] [facility] 2023-02-20 00:00:00 2023-02-20 00:00:00 Orders Only Doctor Unassigned, Michie [facility] 1.2.840.114 350.1.13.10 4.2.7.2.686 [id number] [facility] 2023-02-18 00:00:00 2023-02-18 00:00:00 Telephone Bruce Bates [facility] 1.2.840.114 350.1.13.10 4.2.7.2.686 [id number] [facility] 2023-02-10 00:00:00 2023-02-10 00:00:00 Telephone Bruce Bates [facility] 1.2.840.114 350.1.13.10 4.2.7.2.686 [id number] [facility] 2023-02-10 00:00:00 2023-02-10 00:00:00 Orders Only Doctor Unassigned, Michie [facility] 1.2.840.114 350.1.13.10 4.2.7.2.686 [id number] [facility] 2023-02-06 00:00:00 2023-02-06 00:00:00 Telephone Bruce Bates [facility] 1.2.840.114 350.1.13.10 4.2.7.2.686 [id number] [facility] 2023-01-30 00:00:00 2023-01-30 00:00:00 Refill Bruce BatesHDrew [facility] 1.2.840.114 350.1.13.10 4.2.7.2.686 [id number] [facility] 2023-01-09 00:00:00 2023-01-09 00:00:[address] [facility] 1..840.114 350.1.13.10 4.2.7.2.686 [id number] [facility] 2022-12-30 14:00:00 2022-12-30 14:00:00 Outpatient R [facility]UCE [facility] [id number] [facility] 2022-12-26 13:32:41 2022-12-26 23:59:00 Outpatient R EDUARDO ESTEBAN [facility] [id number] [facility] 2022-12-23 14:00:00 2022-12-23 14:00:00 Outpatient R BATESBRUCE [facility] [id number] [facility] 2022-12-18 15:30:00 2022-12-18 16:00:00 Office Visit Lottie Truong [facility] 1..840.114 350.1.13.10 4.2.7.2.686 [id number] [facility] 2022-12-18 15:30:00 2022-12-18 15:30:00 Outpatient R LOTTIE TRUONG [facility] [id number] [facility] 2022-11-28 14:19:43 2022-11-28 23:59:00 Outpatient R KIRILL CORONA [facility] [id number] [facility] 2022-11-07 11:53:00 2022-11-08 19:04:00 Outpatient R ORLANDO [facility] [id number] [facility] 2022-11-07 11:53:00 2022-11-08 19:04:00 Hospital Encounter Eduardo Esteban Sameer Malik, Faiza [facility] ([facility] 1..840.114 350.1.13.10 4.2.7.2.686 [id number] [facility] 2022-11-07 13:45:00 2022-11-07 15:15:00 Surgery Carlito [facility] 1.2.840.114 350.1.13.10 4.2.7.2.686 [id number] [facility] 2022-11-07 00:00:00 2022-11-07 00:00:00 Orders Only Doctor Unassigned, Michie [facility] 1.2.840.114 350.1.13.10 4.2.7.2.686 [id number] [facility] 2022-11-06 14:30:00 2022-11-06 14:30:00 Outpatient LOTTIE PUENTE [facility]a [facility] [id number] [facility] 2022-11-05 12:45:00 2022-11-05 13:00:00 Natural Science Manager Visit Pob, [facility] Main Carlito [facility]ILD[facility] 1.2.840.114 350.1.13.10 4.2.7.2.686 [id number] [facility] 2022-11-05 12:45:00 2022-11-05 12:45:00 Outpatient R CARL[facility]O [facility] [id number] [facility] 2022-10-24 00:00:00 2022-10-24 00:00:00 Telephone Carlito [facility] MEDICAL OFFICE BUILDING 1.2.840.114 350.1.13.10 4.2.7.2.686 [id number] [facility] 2022-10-03 15:00:00 2022-10-03 15:52:05 Outpatient R CARLITO [facility] [id number] [facility] 2022-10-03 15:00:00 2022-10-03 15:52:05 Office Visit Sewani, Eduardo [facility] 1.2.840.114 350.1.13.10 4.2.7.2.686 [id number] [facility] 2022-10-01 00:00:00 2022-10-01 00:00:00 Telephone Brian George [facility] 1.2.840.114 350.1.13.10 4.2.7.2.686 [id number] [facility] 2022-10-01 00:00:00 2022-10-01 00:00:00 Telephone Eduardo Esteban [facility] 1.2.840.114 350.1.13.10 4.2.7.2.686 [id number] [facility] 2022-10-01 00:00:00 2022-10-01 00:00:00 Telephone Bruce Bates [facility] 1.2.840.114 350.1.13.10 4.2.7.2.686 [id number] [facility] 2022-09-29 00:00:00 2022-09-29 00:00:00 Telephone Cruz Huddleston [facility] 1.2.840.114 350.1.13.10 4.2.7.2.686 [id number] [facility] 2022-09-29 00:00:00 2022-09-29 00:00:00 Telephone Bruce Bates [facility] 1.2.840.114 350.1.13.10 4.2.7.2.686 [id number] [facility] 2022-09-23 13:35:42 2022-09-23 23:59:00 Outpatient R BRUCE BATES [facility] [id number] [facility] 2022-09-23 13:30:00 2022-09-23 14:15:59 Office Visit Bruce Bates [facility] 1.2.840.114 350.1.13.10 4.2.7.2.686 [id number] [facility] 2022-09-20 00:00:00 2022-09-20 00:00:00 Transition of Care Niranjan Fisher MUKESH MANDUJANO 1..840.114 350.1.13.10 4.2.7.2.686 [id number] [facility] 2022-09-16 15:07:00 2022-09-19 15:00:00 Inpatient X LUCY LYNN [facility] [id number] [facility] 2022-09-16 15:07:00 2022-09-19 15:00:00 Hospital Encounter Jacki Samuels, Lucy Reid [facility] 1.840.114 350.1.13.10 4.2.7.2.686 [id number] [facility] 2022-08-07 14:30:00 2022-08-07 14:30:00 Outpatient R BRUCE BATES [facility] [id number] [facility] 2022-07-12 13:00:00 2022-07-12 13:00:00 Outpatient R BRUCE BATES [facility] [id number] [facility] 2022-07-10 00:00:00 2022-07-10 00:00:00 Orders Only Doctor Unassigned, Michie [facility] 1.2.840.114 350.1.13.10 4.2.7.2.686 [id number] [facility] 2022-07-09 00:00:00 2022-07-09 00:00:00 Telephone Bruce Bates [facility] 1.2840.114 350.1.13.10 4.2.7.2.686 [id number] [facility] 2022-07-08 00:00:00 2022-07-08 00:00:00 Refill Bruce Bates [facility] BUILDING 1.2.840.114 350.1.13.10 4.2.7.2.686 [id number] [id number] [facility] 2022-06-12 00:00:00 2022-06-12 00:00:00 Telephone Lottie Truong [facility] 1.2840.114 350.1.13.10 4.2.7.2.686 [id number] [id number] [facility] 2022-06-04 00:00:00 2022-06-04 00:00:00 Telephone Lottie Truong [facility] 1.2840.114 350.1.13.10 4.2.7.2.686 [id number] 085 [id number] [facility] 2022-06-04 00:00:00 2022-06-04 00:00:00 Orders Only Doctor Unassigned, Michie [facility] 1.2.840.114 350.1.13.10 4.2.7.2.686 [id number] [id number] [facility] 2022-03-22 15:20:00 2022-03-22 15:50:19 Outpatient R EDUARDO ESTEBAN [facility] [id number] [facility] 2022-03-22 15:20:00 2022-03-22 15:50:19 Office Visit Eduardo Esteban [facility] 1.2840.114 350.1.13.10 4.2.7.2.686 [id number] [id number] [facility] 2022-03-22 15:20:00 2022-03-22 15:50:19 Outpatient EDUARDO BERRIOS [facility] [id number] [facility] 2022-03-22 10:20:00 2022-03-22 10:20:00 Outpatient R EDUARDO ESTEBAN [facility] [id number] [facility] 2022-03-18 00:00:00 2022-03-18 00:00:00 Telephone Carlito [facility] BUILDING 1.2.840.114 350.1.13.10 4.2.7.2.686 [id number] [id number] [facility] 2022-03-15 08:20:00 2022-03-15 08:20:00 Outpatient R EDUARDO ESTEBAN [facility] [id number] [facility] 2022-01-24 00:00:00 2022-01-24 00:00:00 Telephone Carlito [facility] BUILDING 1.2.840.114 350.1.13.10 4.2.7.2.686 [id number] 059 [id number] [facility] 2022-01-10 00:00:00 2022-01-10 00:00:00 Telephone Bruce Bates [facility] BUILDING 1.2.840.114 350.1.13.10 4.2.7.2.686 [id number] [facility] 2022-01-09 13:45:00 2022-01-09 14:00:00 Natural Science Manager Visit 2, [facility] Lab Bruce Bates [facility] NAL BUILDING 1.2.840.114 350.1.13.10 4.2.7.2.686 [id number] [facility] 2022-01-09 13:00:00 2022-01-09 13:31:34 Outpatient R BATESHOLLIEKARINA [facility] [id number] [facility] 2022-01-09 13:00:00 2022-01-09 13:31:34 Outpatient R HOLLIE BATESKARINA [facility] [id number] [facility] 2022-01-09 13:00:00 2022-01-09 13:31:34 Office Visit Bruce Bates [facility] BUILDING 1.2.840.114 350.1.13.10 4.2.7.2.686 [id number] 059 [id number] [facility] 2022-01-04 10:40:00 2022-01-04 10:40:00 [id number] 2022-01-04 10:40:00 2022-01-04 10:40:00 Outpatient Chris ESTEBAN [facility] [id number] [facility] 2021-11-30 00:00:00 2021-11-30 00:00:00 Orders Only Doctor Unassigned, Michie [facility] 1.2.840.114 350.1.13.10 4.2.7.2.686 [id number] 009 [id number] [facility] 2021-11-21 14:00:00 2021-11-21 14:20:00 Office Visit Lottie Truong [facility] 1.2.840.114 350.1.13.10 4.2.7.2.686 [id number] 085 [id number] [facility] 2021-11-21 14:00:00 2021-11-21 14:00:00 Outpatient R LOTTIE TRUONG [facility] [id number] [facility] 2021-11-21 00:00:00 2021-11-21 00:00:00 Orders Only Doctor Unassigned, Michie [facility] 1.2.840.114 350.1.13.10 4.2.7.2.686 [id number] 009 [id number] [facility] 2021-11-14 11:20:00 2021-11-14 11:40:00 Office Visit Lottie Truong [facility] BUILDING 1.2.840.114 350.1.13.10 4.2.7.2.686 [id number] [facility] 2021-11-14 11:20:00 2021-11-14 11:20:00 Outpatient R LOTTIE TRUONG [facility] [id number] [facility] 2021-11-14 11:20:00 2021-11-14 11:20:00 Outpatient R LOTTIE TRUONG [facility] [id number] [facility] 2021-11-08 09:30:00 2021-11-08 10:03:08 Outpatient R BRUCE BATES [facility] [id number] [facility] 2021-11-08 09:30:00 2021-11-08 10:03:08 Office Visit Bruce Bates [facility] 1.2.840.114 350.1.13.10 4.2.7.2.686 [id number] [id number] [facility] 2021-11-08 09:30:00 2021-11-08 10:03:08 Outpatient R BRUCE BATES [facility] [id number] [facility] 2021-11-08 09:30:00 2021-11-08 09:30:00 Outpatient R BRUCE BATES [facility] [id number] [facility] 2021-11-07 08:37:56 2021-11-07 23:59:00 Outpatient R CHATO COLLADO [facility] [id number] [facility] 2021-11-07 08:37:56 2021-11-07 23:59:00 Hospital Encounter Chato Collado Jalil [facility] 1.2840.114 350.1.13.10 4.2.7.2.686 [id number] [facility] 2021-11-07 08:37:56 2021-11-07 23:59:00 Outpatient R MAYNADEEN CHATO Solitario [facility] [id number] [facility] 2021-11-01 00:00:00 2021-11-01 00:00:00 Patient Secure Msg Doctor Unassigned, Michie [facility] 1.840.114 350.1.13.10 4.2.7.2.686 [id number] [facility] 2021-10-29 00:00:00 2021-10-29 00:00:00 Orders Only Doctor Unassigned, Michie [facility] 1.840.114 350.1.13.10 4.2.7.2.686 [id number] [id number] [facility] 2021-10-25 10:32:00 2021-10-26 15:28:00 Outpatient R IGNACIA CRUZ [facility] [id number] [facility] 2021-10-25 07:00:00 2021-10-25 07:00:00 Outpatient R EDUARDO ESTEBAN [facility] [id number] [facility] 2021-10-23 19:30:00 2021-10-23 22:00:00 Natural Science Manager Visit 1, [facility] Sleep Lab Bed Lottie Truong [facility] 1..840.114 350.1.13.10 4.2.7.2.686 [id number] [facility] 2021-10-23 19:30:00 2021-10-23 19:30:00 Outpatient R LOTTIE TRUONG STRAHIL [facility] [id number] [facility] 2021-10-23 13:15:00 2021-10-23 13:30:00 Laboratory Only Only, Adc Test Eduardo Esteban [facility] 1.2.840.114 350.1.13.10 4.2.7.2.686 [id number] [facility] 2021-10-23 00:00:00 2021-10-23 00:00:00 Orders Only Lottie Truong [facility] 1.2.840.114 350.1.13.10 4.2.7.2.686 [id number] 085 [id number] [facility] 2021-10-22 10:08:26 2021-10-22 23:59:00 Outpatient R CARLITO [facility] [id number] [facility] 2021-10-22 10:08:26 2021-10-22 23:59:00 Hospital Encounter Carlito [facility] 1.2.840.114 350.1.13.10 4.2.7.2.686 [id number] [facility] 2021-10-17 00:00:00 2021-10-17 00:00:00 Telephone Alan Castro BUILDING 1.2.840.114 350.1.13.10 4.2.7.2.686 [id number] 080 [id number] [facility] 2021-09-29 19:30:00 2021-09-29 19:30:00 Outpatient R LOTTIE TRUONG STRAH[facility] [id number] [facility] 2021-09-27 10:00:00 2021-09-27 10:00:00 Outpatient R [facility] [id number] [facility] 2021-09-25 09:30:2021-09-25 23:59:00 Hospital Encounter Eduardo Esteban [facility] 1.2.840.114 350.1.13.10 4.2.7.2.686 [id number] 051 [id number] [facility] 2021-09-25 09:00:00 2021-09-25 09:00:00 Hospital Encounter Eduardo Esteban [facility] 1.2.840.114 350.1.13.10 4.2.7.2.686 [id number] [facility] 2021-09-25 00:00:00 2021-09-25 00:00:00 Outpatient R EDUARDO ESTEBAN [facility] [id number] [facility] 2021-09-24 00:00:00 2021-09-24 00:00:00 Telephone Neida hilaria [facility] 1.2.840.114 350.1.13.10 4.2.7.2.686 [id number] [id number] [facility] 2021-09-21 00:00:00 2021-09-21 00:00:00 Telephone [facility] 1.2.840.114 350.1.13.10 4.2.7.2.686 [id number] 039 [id number] [facility] 2021-09-19 00:00:00 2021-09-19 00:00:00 Telephone Carlito [facility] 1.2.840.114 350.1.13.10 4.2.7.2.686 [id number] 039 [id number] [facility] 2021-09-19 00:00:00 2021-09-19 00:00:00 Telephone [facility] 1.2.840.114 350.1.13.10 4.2.7.2.686 [id number] [facility] 2021-09-18 00:00:00 2021-09-18 00:00:00 Telephone [facility] 1.2.840.114 350.1.13.10 4.2.7.2.686 [id number] 039 [id number] [facility] 2021-09-06 08:00:00 2021-09-06 08:00:00 Outpatient R EDUARDO ESTEBAN [facility] [id number] [facility] 2021-08-22 10:40:00 2021-08-22 11:03:10 Outpatient R LOTTIE TRU[facility] [id number] [facility] 2021-08-22 10:40:00 2021-08-22 11:03:10 Office Visit GiuseppeJeane hurtadodominga [facility] 1.2.840.114 350.1.13.10 4.2.7.2.686 [id number] 085 [id number] [facility] 2021-08-22 00:00:00 2021-08-22 00:00:00 [facility] 1.2.840.114 350.1.13.10 4.2.7.2.686 [id number] 059 [id number] [facility] 2021-08-15 15:20:00 2021-08-15 15:40:00 Office Visit Lottie Truong [facility] 1.2.840.114 350.1.13.10 4.2.7.2.686 [id number] [id number] [facility] 2021-08-15 15:20:00 2021-08-15 15:20:00 Outpatient R LOTTIE TRUONG GIUSEPPEANGELICA HURTADOWYDominga [facility] [id number] [facility] 2021-08-07 00:00:00 2021-08-07 00:00:00 Telephone [facility] 1.2.840.114 350.1.13.10 4.2.7.2.686 [id number] [facility] 2021-07-31 08:47:17 2021-07-31 09:53:27 Office Visit BismarkthomasEduardo [facility] BUILDING 1.2.840.114 350.1.13.10 4.2.7.2.686 [id number] 059 [id number] [facility] 2021-07-31 08:40:00 2021-07-31 09:53:27 Outpatient R CARLITO [facility] [id number] [facility] 2021-07-31 08:40:00 2021-07-31 09:53:27 Outpatient R CARLITO [facility] [id number] [facility] 2021-07-31 08:40:00 2021-07-31 09:53:27 Outpatient R BISMARKTHOMAS [facility] [id number] [facility] 2021-07-30 09:03:56 2021-07-30 09:49:07 Office Visit Bruce Bates [facility] 1.2.840.114 350.1.13.10 4.2.7.2.686 [id number] [facility] 2021-07-30 09:00:00 2021-07-30 09:49:07 Outpatient R BRUCE BATES [facility] [id number] [facility] 2021-07-30 09:00:00 2021-07-30 09:00:00 Outpatient R BRUCE BATES [facility] [id number] [facility] 2021-07-30 00:00:00 2021-07-30 00:00:00 Transition of Niya Miller 1.2.840.114 350.1.13.10 4.2.7.2.686 [id number] [facility] 2021-07-21 15:01:00 2021-07-26 17:17:00 Inpatient RUSSELL MONK [facility] [id number] [facility] 2021-07-21 15:01:00 2021-07-26 17:17:00 Hospital Encounter Jacki Samuels Ziastephy Russell [facility] 1..840.114 350.1.13.10 4.2.7.2.686 [id number] 080 [id number] [facility] 2021-07-18 09:30:00 2021-07-18 10:51:09 Outpatient Chris FULLER [facility] [id number] [facility] 2021-07-18 09:30:00 2021-07-18 10:51:09 Outpatient Chris FULLER [facility] [id number] [facility] 2021-07-18 09:25:01 2021-07-18 10:51:09 Office Visit Alan Castro [facility] .840.114 350.1.13.10 4.2.7.2.686 [id number] [facility] 2021-07-10 00:00:00 2021-07-10 00:00:00 Telephone Bruce Bates [facility] 1..840.114 350.1.13.10 4.2.7.2.686 [id number] 059 [id number] [facility] 2021-07-02 00:00:00 2021-07-02 00:00:00 Telephone Bruce Bates [facility] 1..840.114 350.1.13.10 4.2.7.2.686 [id number] 059 [id number] [facility] 2021-06-21 08:14:54 2021-06-21 23:59:00 Hospital Encounter Bruce Bates [facility] 1.2.840.114 350.1.13.10 4.2.7.2.686 [id number] [facility] 2021-06-21 08:14:18 2021-06-21 23:59:00 Hospital Encounter Bruce Bates MEFILI [facility] 1.2.840.114 350.1.13.10 4.2.7.2.686 [id number] [facility] 2021-06-21 08:14:06 2021-06-21 23:59:00 Hospital Encounter Bruce Bates [facility] 1.2.840.114 350.1.13.10 4.2.7.2.686 [id number] [facility] 2021-06-21 08:13:21 2021-06-21 08:13:21 Hospital Encounter Bruce Bates [facility] 1.2.840.114 350.1.13.10 4.2.7.2.686 [id number] [facility] 2021-06-21 08:13:10 2021-06-21 08:13:10 Hospital Encounter Bruce Btaes [facility] 1.2.840.114 350.1.13.10 4.2.7.2.686 [id number] [facility] 2021-06-21 00:00:00 2021-06-21 00:00:00 Outpatient PAULOHOLLIEKARINA [facility] [id number] [facility] 2021-06-20 00:00:00 2021-06-20 00:00:00 Telephone [facility]ruce [facility] 1.2.840.114 350.1.13.10 4.2.7.2.686 [id number] 059 [id number] [facility] 2021-06-20 00:00:00 2021-06-20 00:00:00 Telephone Israel BeardadKellie [facility] 1.2.840.114 350.1.13.10 4.2.7.2.686 [id number] [id number] [facility] 2021-06-19 00:00:00 2021-06-19 00:00:00 Orders Only Doctor Unassigned, Michie [facility] 1.2.840.114 350.1.13.10 4.2.7.2.686 [id number] [id number] [facility] 2021-06-18 12:54:16 2021-06-18 23:59:00 Hospital Encounter Bruce Bates [facility] 1.2.840.114 350.1.13.10 4.2.7.2.686 [id number] [facility] 2021-06-18 13:00:00 2021-06-18 13:00:00 Outpatient R BRUCE BATES [facility] [id number] [facility] 2021-06-13 00:00:00 2021-06-13 00:00:00 Orders Only Doctor Unassigned, Michie [facility] 1.2840.114 350.1.13.10 4.2.7.2.686 [id number] 009 [id number] [facility] 2021-06-12 16:07:13 2021-06-12 23:59:00 Hospital Encounter Bruce Bates [facility] 1.2.840.114 350.1.13.10 4.2.7.2.686 [id number] [facility] 2021-06-12 10:15:52 2021-06-12 11:10:12 Office Visit Bruce Bates [facility] 1.2.840.114 350.1.13.10 4.2.7.2.686 [id number] [facility] 2021-06-12 10:00:00 2021-06-12 10:00:00 Outpatient R BRUCE BATES [facility] [id number] [facility] 2021-06-12 00:00:00 2021-06-12 00:00:00 Orders Only Doctor Unassigned, Michie [facility] 1.2.840.114 350.1.13.10 4.2.7.2.686 [id number] [id number] [facility] 2021-01-04 00:00:00 2021-01-04 00:00:00 Refill Bruce Bates [facility] 1.2.840.114 350.1.13.10 4.2.7.2.686 [id number] 059 [id number] [facility] 2020-12-28 00:00:00 2020-12-28 00:00:00 Refill Bruce Bates [facility] 1.2.840.114 350.1.13.10 4.2.7.2.686 [id number] 059 [id number] [facility] 2020-11-04 00:00:00 2020-11-04 00:00:00 Orders Only Doctor Unassigned, Michie [facility] 1.2.840.114 350.1.13.10 4.2.7.2.686 [id number] 009 [id number] [facility] 2020-09-15 00:00:00 2020-09-15 00:00:00 Telephone Bruce Bates [facility] 1.2.840.114 350.1.13.10 4.2.7.2.686 [id number] 059 [id number] [facility] 2020-06-12 14:47:16 2020-06-27 13:33:27 [facility] 1.2.840.114 350.1.13.10 4.2.7.2.686 [id number] 059 [id number] [facility] 2020-06-12 14:47:16 2020-06-27 13:33:27 Office Visit Bruce Bates [facility] Building 1.2.840.114 350.1.13.10 4.2.7.2.686 [id number] 059 [id number] 2020-06-27 00:00:00 2020-06-27 00:00:00 Orders Only Doctor Unassigned, Michie [facility] 1.2.840.114 350.1.13.10 4.2.7.2.686 [id number] [facility] 2020-06-27 00:00:00 2020-06-27 00:00:00 Telephone Bruce Bates [facility] Building 1.2.840.114 350.1.13.10 4.2.7.2.686 [id number] 059 [id number] [facility] 2020-06-27 00:00:00 2020-06-27 00:00:00 Telephone Bruce Bates [facility] Building 1.2.840.114 350.1.13.10 4.2.7.2.686 [id number] 059 [id number] 2020-06-21 16:00:00 2020-06-21 16:00:00 Outpatient R [facility] [id number] [facility] 2020-06-16 16:00:00 2020-06-16 16:00:00 Outpatient R [facility] [id number] [facility] 2020-06-12 14:30:00 2020-06-12 14:30:00 Outpatient R PAULOBRUCE [facility] [id number] [facility] 2020-06-12 00:00:00 2020-06-12 00:00:00 Orders Only Doctor Unassigned, Michie [facility] 1..840.114 350.1.13.10 4.2.7.2.686 [id number] [id number] [facility] 2020-05-26 09:37:13 2020-05-26 11:46:55 Office Visit Alan Wild [facility] 1..840.114 350.1.13.10 4.2.7.2.686 [id number] [facility] 2020-05-26 09:20:00 2020-05-26 09:20:00 Outpatient ALAN MEMBRENO ALAN [facility] [id number] [facility] 2020-05-22 09:00:00 2020-05-22 09:00:00 Outpatient R PAULOBRUCE [facility] [id number] [facility] 2020-05-12 00:00:00 2020-05-12 00:00:00 Telephone Alan Wild [facility] 1..840.114 350.1.13.10 4.2.7.2.686 [id number] [facility] 2020-04-28 15:30:00 2020-04-28 15:30:00 Outpatient R PAULOBRUCE [facility] [id number] [facility] 2020-04-18 10:49:27 2020-04-18 23:59:00 Hospital Encounter Alan Wild [facility] 1.2.840.114 350.1.13.10 4.2.7.2.686 [id number] [facility] 2020-04-18 00:00:00 2020-04-18 00:00:00 Outpatient ALAN MEMBRENO HOWARD [facility] [id number] [facility] 2020-04-11 13:24:22 2020-04-11 14:07:49 Office Visit Alan Wild [facility] Building 1.2.840.114 350.1.13.10 4.2.7.2.686 [id number] [facility] 2020-04-11 13:40:00 2020-04-11 13:40:00 Outpatient ALAN MEMBRENO [facility] [id number] [facility] 2020-04-11 00:00:00 2020-04-11 00:00:00 Orders Only Doctor Unassigned, Michie [facility] 1.2840.114 350.1.13.10 4.2.7.2.686 [id number] [id number] [facility] 2020-03-09 00:00:00 2020-03-09 00:00:00 Orders Only Doctor Unassigned, Michie [facility] 1.2.114 350.1.13.10 4.2.7.2.686 [id number] [id number] [facility] 2020-01-05 11:30:00 2020-01-05 11:30:00 Outpatient LOTTIE PUENTE STRAHIL [facility] [id number] [facility] 2020-01-05 09:17:42 2020-01-05 09:47:42 Telemedici ne Visit Lottie Truong [facility] 1.84.114 350.1.13.10 4.2.7.2.686 [id number] 085 [id number] [facility] 2019-12-19 00:00:00 2019-12-19 00:00:00 Orders Only Doctor Unassigned, Michie [facility] 1.20.114 350.1.13.10 4.2.7.2.686 [id number] 009 [id number] [facility] 2019-04-22 15:39:26 2019-04-22 16:24:54 Office Visit Bruce Bates [facility] 1.2.840.114 350.1.13.10 4.2.7.2.686 [id number] [id number] [facility] 2019-04-22 00:00:00 2019-04-22 00:00:00 Orders Only Doctor Unassigned, Michie [facility] 1.2.840.114 350.1.13.10 4.2.7.2.686 [id number] 009 [id number] [facility] 2019-04-07 10:03:10 2019-04-07 10:33:10 Office Visit Lottie Truong [facility] 1.2.840.114 350.1.13.10 4.2.7.2.686 [id number] 085 [id number] [facility] 2019-04-07 00:00:00 2019-04-07 00:00:00 Orders Only Doctor Unassigned, Michie [facility] 1.2.840.114 350.1.13.10 4.2.7.2.686 [id number] 009 [id number] [facility] Results Test Description Test Time Test Comments Results Result Co mments Source [facility] GLUCOSE (AUTOMATED)2022-09-19 16:02:54* Test Item Value Reference Range Interpretation Comme nts POCT GLU (test code = 1623129699) 86 mg/dL 70-110 Lab Interpretation (test cod e = 76228-4) Normal [facility] GLUCOSE (AUTOMATED)2022-09-19 01:50:19* Test Item Value Reference Range Interpretation Comme nts POCT GLU (test code = 1942833149) 127 mg/dL 70-110 H Lab Interpretation (test cod e = 40278-4) Abnormal [facility] GLUCOSE (AUTOMATED)2022-09-18 22:39:24* Test Item Value Reference Range Interpretation Comme nts POCT GLU (test code = 6555534091) 104 mg/dL 70-110 Lab Interpretation (test cod e = 57568-8) Normal [facility] GLUCOSE (AUTOMATED)2022-09-18 17:35:45* Test Item Value Reference Range Interpretation Comme nts POCT GLU (test code = 4761606196) 158 mg/dL 70-110 H Lab Interpretation (test cod e = 30695-5) Abnormal [facility] GLUCOSE (AUTOMATED)2022-09-18 14:16:24* Test Item Value Reference Range Interpretation Comme nts POCT GLU (test code = 0543517596) 148 mg/dL 70-110 H Lab Interpretation (test cod e = 76954-0) Abnormal [facility] GLUCOSE (AUTOMATED)2022-09-18 02:59:51* Test Item Value Reference Range Interpretation Comme nts POCT GLU (test code = 5310781859) 174 mg/dL 70-110 H Lab Interpretation (test cod e = 10902-7) [facility] 23:30:34* Test Item Value Reference Range Interpretation Comme nts Height (test code = 9816583503) in Weight (test code = 4200557886) lbs Systolic BP (test code = 5446781064) mmHg Diastolic BP (test code = 3923881936) mmHg Heart Rate (test code = 3403500381) bpm BSA (test code = 8089555338) 1.98 m2 Ao root diam (test code = 3686785816) 3.10 cm Aortic root (test code = 1435101926) 3.1 cm Ao root annulus (test code = 3046598765) 3.1 cm LVOT diameter (test code = 3811234080) 1.82 cm LVOT area (test code = 2791459526) 2.60 cm2 LVIDD (test code = 5216318705) 4.00 cm Left Ventricular End Diastolic Volume by Teichholz Method (test code = 6707893) 69.3 mL IVS (test code = 6914858174) 1.19 cm Interventricular Septum Diastolic Thickness by 2D (test code = 5706625) 1.19 cm LVPWD (test code = 0468115351) 1.19 cm PW (test code = 8753591449) 1.19 cm 0.6-1.1 EF(Teich) (test code = 3508931704) 54.60 % LVIDS (test code = 9540052215) 2.90 cm Left Ventricular End Systolic Volume by Teichholz Method (test code = 2680053) 31.4 mL FS (test code = 3922312369) 28 % EF - 2D (test code = 93488941) 54.60 % LA size (test code = 8776364443) 4.5 cm LAV(MOD-sp4) (test code = 0966204271) 64.20 mL E wave decelartion time (test code = 7482950071) 0.14 s MV Peak E Tone (test code = 8602085621) 73.1 cm/s MV stenosis pressure 1/2 time (test code = 2930150210) 41.2 ms MV Peak A Tone (test code = 6740269942) 27.2 cm/s E/A ratio (test code = 7680410588) ratio MV Prop V (test code = 9823222208) 25.00 cm/s MV E/e' septal (test code = 0941922285) 8.1 cm/s Tapse (test code = 2464780537) 1.63 cm TR Peak Tone (test code = 6346055986) 199.0 cm/s Triscuspid Valve Regurgitation Peak Gradient (test code = 1091671815) mmHg LVOT stroke volume (test code = 7107825194) 54.40 cm3 LVOT peak tone (test code = 4535943874) 127.5 cm/s LVOT mn grad (test code = 4870209853) mmHg AV LVOT peak gradient (test code = 9064111666) mmHg LVOT peak VTI (test code = 2512404632) 21.0 cm LV V1 mean (test code = 1569519536) 69.50 cm/s Aortic valve mean velocity (test code = 3102184960) 119.0 cm/s Ao peak tone (test code = 0380179471) 161.8 cm/s Ao VTI (test code = 9012990735) 26.0 cm AV area by cont VTI (test code = 0757694264) 2.1 cm2 AV area peak tone (test code = 3596498146) 2.0 cm2 Ao max PG (test code = 6139139468) 10.50 mm[Hg] AV peak gradient (test code = 6483377803) mmHg AV valve area (test code = 0038155327) 2.09 cm2 AV mean gradient (test code = 5775888992) mmHg Radiology Study observation (narrative) (test code = 25015-8) ZAK (test code = ZAK) ?Left?Ventricle: Left ventricle size is normal. Normal wall thickness. Normal wall motion. Normal systolic function with a visually estimated EF of 60 - 65%. Indeterminate diastolic function. ?Right?Ventricle: Right ventricle size is normal. Normal systolic function. ?Tricuspid?Valve: Insufficient tricuspid regurgitation jet to estimate RVSP, but probably normal. RA pressure is 0-5 mmHg. Left VentricleLeft ventricle size is normal. Normal wall thickness. Normal wall motion. Normal systolic function with a visually estimated EF of 60 - 65%. Indeterminate diastolic function.Right VentricleRight ventricle size is normal. Normal systolic function.Left AtriumLeft atrium size is normal.Right AtriumRight atrium size is normal.Mitral ValveMitral valve structure is normal. Trace transvalvular regurgitation.Tricusp id ValveTricuspid valve structure is normal. Insufficient tricuspid regurgitation jet to estimate RVSP, but probably normal.Trace transvalvular regurgitation. RA pressure is 0-5 mmHg.Aortic ValveTricuspid. Mildly thickened cusps.Pulmonic ValveNot well visualized.Ascending AortaNormal sized aorta.PericardiumThe pericardium is normal.Study DetailsStudy quality was adequate. A complete echocardiogram was performed using 2D, color flow Doppler and spectral Doppler. [facility] GLUCOSE (AUTOMATED)2022-09-17 22:53:28* Test Item Value Reference Range Interpretation Comme nts POCT GLU (test code = 5414849344) 121 mg/dL 70-110 H Lab Interpretation (test cod e = 97106-9) Abnormal [facility] GLUCOSE (AUTOMATED)2022-09-17 17:41:55* Test Item Value Reference Range Interpretation Comme nts POCT GLU (test code = 8031372150) 193 mg/dL 70-110 H Lab Interpretation (test cod e = 19064-0) Abnormal [facility] GLUCOSE (AUTOMATED)2022-09-17 13:47:30* Test Item Value Reference Range Interpretation Comme [facility] POCT GLU (test code = 4681329085) 115 mg/dL 70-110 H Lab Interpretation (test cod e = 36607-2) [facility] 06:05:45* Test Item Value Reference Range Interpretation Comme [facility] HGB A1C (test code = 4548-4) 8.9 % 4.0-5.7 H ZAK (test code = ZAK) Reference RangesNormal: <5.7%Prediabetes: 5.7 - 6.4%Diabetes: > 6.5% Lab Interpretation (test code = 59476-5) [facility]normal [facility] [id number] 22:23:39 * Test Item Value Reference Range Interpretation Comme [facility] TSH (test code = 6443865956) See_Comment [Automated LabPixiesa ge] The system which generated this result transmitted reference range: 0.45 - 4.70 mIU/L. The reference range was not used to interpret this result as normal/abnormal. Lab Interpretation (test code = 55560-6) Normal [facility] CenterTR[facility] [id number] 22:04:57* Test Item Value Reference Range Interpretation Comments TROPONIN I (test code = 7843813557) 0.007 ng/mL See_Comment [Automated message] The system which generated this result transmitted reference range: <=0.034. The reference range was not used to interpret this result as normal/abnormal. ZAK (test code = ZAK) Reference (Normal) Range (defined by the 99th percentile reference limit): <= 0.034 ng/mL Note: Cardiac troponin begins to rise 3-4 hours after the onset of ischemia. Repeat in 4-6 hours if the sample was drawn within 3-4 hours of the onset of the symptom and found normal. Diagnosis of myocardial injury is made with acute changes in cTn concentrations with at least one serial sample above the 99th percentile upper reference limit (URL), taken together with the patient's clinical presentation. Biotin has been reported to cause a negative bias, interpret results relative to patient's use of biotin. Lab Interpretation (test code = 81744-3) [facility] 21:53:35* Test Item Value Reference Range Interpretation Comme nts MAGNESIUM (test code = 9000920647) 1.7 mg/dL 1.7-2.4 Lab Interpretation (test cod e = 29436-6) Normal [facility]. METABOLIC PANEL (10481)2022-09-16 21:53:15* Test Item Value Reference Range Interpretation Comme nts NA (test code = 6128702586) 138 mmol/L 135-145 K (test code = 7856085475) 4.3 mmol/L 3.5-5.0 CL (test code = 1070129916) 101 mmol/L 98-108 CO2 TOTAL (test code = 6848559532) 25 mmol/L 23-31 AGAP (test code = 8098552242) 2-16 BUN (test code = 1805985305) 16 mg/dL 7-23 GLUCOSE (test code = 2076570229) 186 mg/dL 70-110 H CREATININE (test code = 4590821650) 0.73 mg/dL 0.50-1.04 TOTAL BILI (test code = 6718438289) 1.4 mg/dL 0.1-1.1 H CALCIUM (test code = 1306592471) 9.4 mg/dL 8.6-10.6 T PROTEIN (test code = 3851689281) 7.7 g/dL 6.3-8.2 ALBUMIN (test code = 9114372381) 4.7 g/dL 3.5-5.0 ALK PHOS (test code = 4905778949) 125 U/L 34-122 H ALTv (test code = 1742-6) 21 U/L 5-35 AST(SGOT) (test code = 3307251561) 22 U/L 13-40 eGFR (test code = 3759031139) mL/min/1.73m2 ZAK (test code = ZAK) Association of Glomerular Filtration Rate (GFR) and Staging of Kidney Disease* + --+ --+ ------+| GFR (mL/min/1.73 m2) ?| With Kidney Damage ?| ?Without Kidney Damage+ --------+ --------+ +| ?>90 ?| ?Stage one ?| ? Normal ?+ ---+ ---+ -------+| ?60-89 ?| ?Stage two ?| ? Decreased GFR ? + --+ --+ ------+| ?30-59 ?| ?Stage three ?| ? Stage three ? + --+ --+ ------+| ?15-29 ?| ?Stage four ? | ? Stage four ?+ ---+ ---+ -------+| ?<15 (or dialysis) ? ?| ?Stage five ? | ? Stage five ?+ ---+ ---+ -------+ *Each stage assumes the associated GFR level has been in effect for at least three months. ?Stages 1 to 5, with or without kidney disease, indicate chronic kidney disease. Notes: Determination of stages one and two (with eGFR >59mL/min/1.73 m2) requires estimation of kidney damage for at least three months as defined by structural or functional abnormalities of the kidney, manifested by either:Pathological abnormalities or Markers of kidney damage (including abnormalities in the composition of the blood or urine or abnormalities in imaging tests). Lab Interpretation (test code = 07940-8) Abnormal [facility] WITH [id number] 21:34:56* Test Item Value Reference Range Interpretation Comme nts WBC (test code = 6690-2) See_Comment [Vtap] The system which generated this result transmitted reference range: 4.30 - 11.10 10*3/?L. The reference range was not used to interpret this result as normal/abnormal. RBC (test code = 789-8) See_Comment [Vtap] The system which generated this result transmitted reference range: 3.93 - 5.25 10*6/?L. The reference range was not used to interpret this result as normal/abnormal. HGB (test code = 718-7) 15.5 g/dL 11.6-15.0 H HCT (test code = 4544-3) 46.5 % 35.7-45.2 H MCV (test code = 787-2) 90.6 fL 80.6-95.5 MCH (test code = 785-6) 30.2 pg 25.9-32.8 MCHC (test code = 786-4) 33.3 g/dL 31.6-35.1 RDW-SD (test code = 13493-4) 42.7 fL 39.0-49.9 RDW-CV (test code = 788-0) 12.8 % 12.0-15.5 PLT (test code = 777-3) See_Comment [Automated messa ge] The system which generated this result transmitted reference range: 166 - 358 10*3/?L. The reference range was not used to interpret this result as normal/abnormal. MPV (test code = 54149-1) 9.6 fL 9.5-12.9 NRBC/100 WBC (test code = 7789293571) See_Comment [Automated Tellme ssage] The system which generated this result transmitted reference range: 0.0 - 10.0 /100 WBCs. The reference range was not used to interpret this result as normal/abnormal. NRBC x10^3 (test code = 9394949749) See_Comment [Automated messa ge] The system which generated this result transmitted reference range: 10*3/?L. The reference range was not used to interpret this result as normal/abnormal. GRAN MAT (NEUT) % (test code = 770-8) 65.8 % IMM GRAN % (test code = 9389284308) 0.30 % LYMPH % (test code = 736-9) 22.1 % MONO % (test code = 5905-5) 9.5 % EOS % (test code = 713-8) 1.4 % BASO % (test code = 706-2) 0.9 % GRAN MAT x10^3(ANC) (test code = 3688508863) 5.81 10*3/uL 1.88-7.09 IMM GRAN x10^3 (test code = 9225468996) 0.03 10*3/uL 0.00-0.06 LYMPH x10^3 (test code = 731-0) 1.95 10*3/uL 1.32-3.29 MONO x10^3 (test code = 742-7) 0.84 10*3/uL 0.33-0.92 EOS x10^3 (test code = 711-2) 0.12 10*3/uL 0.03-0.39 BASO x10^3 (test code = 704-7) 0.08 10*3/uL 0.01-0.07 H Lab Interpretation (test code = 17607-3) Abnormal [facility] Notes Date/Time Note Provider Source 2023-09-12 15:57:29 I+SDlv42/sVGALgaa6zC l2MEUYVUtF/u8Nal1lwubd iMuawTvkB8p8bdj9xVTQW15513-89-23D46:57:29F ormatting of this note might be different from the original.Received medical records request from Dr Santos office will sent via fax to [facility] if any questions regarding this request reach out to [facility] [id number] encounter DvtkCS0775-48-31O93:58:55Telephone encounter [id number] 9|[id number] for patient [id number]w C-CDA narrative [address] Zq[id number] IJFBWQQLMTKWIHAC0907-64-91M36:58:551.2.840 .940401.1.72.3.15|1.2.840.523768.1.13.104. [id number] [facility]"
[2024-01-06] MEDS ORDERED: dilTIAZem HCL 25 MG/5 ML VIAL IV ONE (15:22)
[2024-01-06] MEDS ORDERED: NA CHLORIDE 0.9% 1,000 ML ONE (15:22)
[2024-01-06 15:26] LABS: Absolute Basophils 0.1 K/uL (0-0.5); Absolute Eosinophils 0.2 K/uL (0-0.5); Absolute Lymphocytes (CBC) 2.3 K/uL (0.7-4.9); Absolute Monocytes 0.7 K/uL (0.1-1.3); Absolute Neutrophil 4.7 K/uL (1.8-8.0); Eosinophils % 1.9 % (0-4.4); Hematocrit 46.4 % (36.0-45.0); Hemoglobin 15.4 g/dL (12.0-15.0); MCH 30.2 pg (27.0-35.0); MCHC 33.2 g/dL (32.0-36.0); MPV 7.5 fL (7.6-11.3); Monocytes % 9.1 % (3.3-12.3); Platelets 289 thou/uL (152-406); Red Cell Distribution Width 13.6 % (12.1-15.2)
[2024-01-06 15:52] LABS: Anion Gap 6.6 mEq/L (5.0-15.0); Potassium 3.6 mEq/L (3.5-5.1); Thyroid Stimulating Hormone 2.45 uIU/mL (0.358-3.740); Troponin High Sensitivity 10.2 pg/mL (<58.9)
--- NOTE | 2024-01-06 17:14 | RAD REPORT ---
EXAM DESCRIPTION: Saul Single View01/06/2024 3:40 pm CLINICAL HISTORY: PALPITATIONS COMPARISON: No comparisons TECHNIQUE: Portable AP view of the chest. FINDINGS: The lungs are clear. No pneumothorax or effusion. The cardiomediastinal contours are unre markable. Right chest wall port and left chest wall pacer in place. IMPRESSION: No acute cardiopulmonary process.
--- NOTE | 2024-01-06 19:00 | ER ---
Nurse's Notes [facility] Name: Edith Hernandez Age: 68 yrs Sex: Female : 1955 Arrival Date: 01/06/2024 Time: 14:58 Bed 4 Private MD: Diagnosis: Palpitations Presentation: 01/05 15:07 Chief complaint: Patient states: palpations that started today. Coronavirus screen: At as6 this time, the client does not indicate any symptoms associated with coronavirus-19. Ebola Screen: No symptoms or risks identified at this time. Initial Sepsis Screen: Does the patient meet any 2 criteria? No. Patient's initial sepsis screen is negative. Does the patient have a suspected source of infection? No. Patient's initial sepsis screen is negative. Risk Assessment: Do you want to hurt yourself or someone else? Patient reports no desire to harm self or others. Onset of symptoms was January 06, 2024. 15:07 Acuity: ZHANG 2 as6 15:07 Method Of Arrival: Wheelchair as6 Historical: - Allergies: 15:08 No Known Allergies; as6 - PMHx: 15:08 Hypertensive disorder; Stroke Left side defecit; Atrial fibrillation; as6 15:09 Diabetes mellitus; cancer; Cerebrovascular accident; as6 - PSHx: 15:08 section; hysterectomy; pacemaker; as6 - Immunization history:: Adult Immunizations up to date. - Infectious Disease History:: Denies. - Social history:: Smoking status: Patient denies any tobacco usage or history of. Screenin:12 [facility] ED Fall Risk Assessment (Adult) History of falling in the last 3 months, rs5 including since admission No falls in past 3 months (0 pts) Confusion or Disorientation Yes (5 pts) Intoxicated or Sedated No (0 pts) Impaired Gait No (0 pts) Mobility Assist Device Used No (0 pt) Altered Elimination No (0 pt) Score/Fall Risk Level 0 - 2 = Low Risk Oriented to surroundings, Maintained a safe environment. Abuse screen: Denies threats or abuse. Nutritional screening: No deficits noted. Tuberculosis screening: No symptoms or risk factors identified. Assessment: 15:12 General: Appears in no apparent distress. uncomfortable, Behavior is calm, cooperative. rs5 Pain: Denies pain. Neuro: Level of Consciousness is awake, alert, obeys commands, Oriented to person, place, time, situation. Cardiovascular: Patient's skin is warm and dry. Rhythm is regular. Respiratory: Airway is patent Respiratory effort is even, unlabored, Respiratory pattern is regular, symmetrical. GI: Abdomen is round non-distended, Abd is soft and non tender X 4 quads. : No signs and/or symptoms were reported regarding the genitourinary system. EENT: No signs and/or symptoms were reported regarding the EENT system. Derm: Skin is intact, Skin is pink, warm \T\ dry. Musculoskeletal: Range of motion: intact in all extremities. 16:20 Reassessment: Patient and/or family updated on plan of care and expected duration. Pain rs5 level reassessed. Patient is alert, oriented x 3, equal unlabored respirations, skin warm/dry/pink. Patient states feeling better. 17:32 Reassessment: No changes from previously documented assessment. rs5 18:44 Reassessment: Patient and/or family updated on plan of care and expected duration. Pain rs5 level reassessed. Patient is alert, oriented x 3, equal unlabored respirations, skin warm/dry/pink. 19:05 Reassessment: No changes from previously documented assessment. rs5 Vital Signs: 15:07 BP 124 / 74; Pulse 89; Resp 16 S; Temp 97.6(TE); Pulse Ox 97% on R/A; Weight 89.81 kg as6 (R); Height 5 ft. 4 in. (R); Pain 0/10; 15:22 BP 138 / 82; Pulse 151; Resp 18; Pulse Ox 96% on R/A; rs5 15:31 BP 115 / 63; Pulse 77; Resp 18; Pulse Ox 96% on R/A; rs5 19:05 BP 120 / 67; Pulse 71; Resp 18; Pulse Ox 98% on R/A; rs5 15:07 Body Mass Index 33.99 (89.81 kg, 162.56 cm) as6 15:07 Pain Scale: Adult as6 ED Course: 15:00 Patient arrived in ED. rg4 15:04 [facility]-C [facility]. kb 15:04 Juwan Mcknight MD is Attending Physician. kb 15:08 Triage completed. as6 15:09 Arm band placed on. as6 15:10 Amado, Alex, RN is Primary Nurse. rs5 15:12 Patient has correct armband on for positive identification. Placed in gown. Bed in low rs5 position. Call light in reach. Side rails up X2. 15:12 No provider procedures requiring assistance completed. rs5 15:18 EKG done, by ED staff, reviewed by Jojo WEBER. ap3 15:42 XRAY Chest (1 view) In Process Unspecified. EDMS 18:35 contacted [employer] at [phone] to have the [employer] rep interogate pt pace maker. bd 18:59 Juwan Mcknight MD is Referral Physician. kb 19:31 Provided Education on: F/U WITH pcp. vc1 19:31 IV discontinued, intact, bleeding controlled, No redness/swelling at site. Pressure vc1 dressing applied. Administered Medications: 15:25 Drug: Diltiazem IVP 20 mg IVP once; Over 2 minutes Route: IVP; Site: right antecubital; rs5 16:00 Follow up: Response: No adverse reaction rs5 15:25 Drug: NS 0.9% IV 1000 ml IV at 1000 ml once Route: IV; Rate: 1000 ml; Site: right rs5 antecubital; 16:01 Follow up: Response: No adverse reaction rs5 16:28 Follow up: IV Status: Completed infusion rs5 Medication: 18:43 VIS not applicable for this client. rs5 Outcome: 18:59 Discharge ordered by MD. kb 19:30 Discharged to home ambulatory, with family, vc1 19:30 Condition: improved 19:30 Discharge instructions given to patient, Instructed on discharge instructions, follow up and referral plans. Demonstrated understanding of instructions, follow-up care, 19:31 Patient left the ED. vc1 Signatures: Dispatcher [employer] EDMS Jojo Chand FNP-C FNP-Nicole Lezama Rubi rg4 Chaparrita Beck RN RN ap3 Branden Villagran RN RN as6 Deena Mullen RN RN vc1 Alex Amado, RN RN rs5 Corrections: (The following items were deleted from the chart) 19:05 18:44 BP 120 / 67; Pulse 71bpm; Resp 18bpm; Pulse Ox 98% RA; rs5 rs5
--- NOTE | 2024-01-06 19:00 | EDPHYS ---
Physician Documentation [facility] Name: Edith Hernandez Age: 68 yrs Sex: Female : 1955 Arrival Date: 01/06/2024 Time: 14:58 Bed 4 Private MD: ED Physician Juwan Mcknight HPI: 01/05 16:22 This 68 yrs old Female presents to ER via Wheelchair with complaints of kb Palpitations. 16:22 Pt is a 68 year old female who presents for palpitations that have been intermittent kb since 729 with shortness of breath. Denies chest pain. States she has a history of a.fib and it feels like she is going in and out of that. 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 . Historical: - Allergies: 15:08 No Known Allergies; as6 - PMHx: 15:08 Hypertensive disorder; Stroke Left side defecit; Atrial fibrillation; as6 15:09 Diabetes mellitus; cancer; Cerebrovascular accident; as6 - PSHx: 15:08 section; hysterectomy; pacemaker; as6 - Immunization history:: Adult Immunizations up to date. - Infectious Disease History:: Denies. - Social history:: Smoking status: Patient denies any tobacco usage or history of. ROS: 15:36 Constitutional: As per HPI kb Exam: 15:10 Constitutional: This is a well developed, well nourished patient who is awake, alert, kb and in no acute distress. Head/Face: Normocephalic, atraumatic. ENT: Moist Mucous membranes Cardiovascular: Regular rate Respiratory: Respirations even and unlabored. No increased work of breathing. Talking in full sentences Abdomen/GI: Soft, non-tender. No distention Skin: Warm, dry with normal turgor. Normal color. MS/ Extremity: Pulses equal, no cyanosis. Neurovascular intact. Full, normal range of motion. Neuro: Awake and alert, GCS 15, oriented to person, place, time, and situation. Moves all extremities. Normal gait. 15:15 ECG was reviewed by the Attending Physician. kb 15:34 ECG was reviewed by the Attending Physician. kb Vital Signs: 15:07 BP 124 / 74; Pulse 89; Resp 16 S; Temp 97.6(TE); Pulse Ox 97% on R/A; Weight 89.81 kg as6 (R); Height 5 ft. 4 in. (R); Pain 0/10; 15:22 BP 138 / 82; Pulse 151; Resp 18; Pulse Ox 96% on R/A; rs5 15:31 BP 115 / 63; Pulse 77; Resp 18; Pulse Ox 96% on R/A; rs5 19:05 BP 120 / 67; Pulse 71; Resp 18; Pulse Ox 98% on R/A; rs5 15:07 Body Mass Index 33.99 (89.81 kg, 162.56 cm) as6 15:07 Pain Scale: Adult as6 MDM: 15:04 Patient medically screened. kb 15:30 ED course: upon initial assessment in triage, HR was regular rhythm with a rate in the kb 80s. Pt was taken to bed 4 and HR was 150. Cardizem is one of pt's home medications. Cardizem 20mg IV ordered and given. HR now back into the 80s with regular rhythm. 15:38 Data reviewed: vital signs, nurses notes. kb 18:59 Differential diagnosis: arrythmia, dehydration, stress disorder. Consideration of kb Admission/Observation Escalation of care including admission/observation considered. admission considered but rate and rhythm has been controlled since initial treatment, pacemaker interrogation normal and pt is feeling better. Counseling: I had a detailed discussion with the patient and/or guardian regarding the historical points, exam findings, and any diagnostic results supporting the discharge/admit diagnosis, lab results, radiology results, the need for outpatient follow up, a appliances sample maker, a family practitioner, to return to the emergency department if symptoms worsen or persist or if there are any questions or concerns that arise at home. ED course: [employer] interrogated pacemaker and shows no abnormalities . ED course: Pt states she is feeling better. Rate has been in the 70s and 80s since initial treatment. Discussed case with Dr Mcknight who recommends outpatient follow up. Pt in agreement and will call appliances sample maker for follow up. Educated on return precautions. 01/05 15:09 Order name: Basic Metabolic Panel; Complete Time: 15:53 kb 01/05 15:09 Order name: CBC with Diff; Complete Time: 15:39 kb 01/05 15:09 Order name: Magnesium; Complete Time: 15:53 kb 01/05 15:09 Order name: Troponin HS; Complete Time: 15:53 kb 01/05 15:09 Order name: TSH; Complete Time: 15:53 kb 01/05 15:09 Order name: XRAY Chest (1 view); Complete Time: 17:19 kb 01/05 15:09 Order name: EKG; Complete Time: 15:09 kb 01/05 15:09 Order name: Cardiac monitoring; Complete Time: 15:58 kb 01/05 15:09 Order name: EKG - Nurse/Tech; Complete Time: 15:59 kb 01/05 15:09 Order name: IV Saline Lock; Complete Time: 15:59 kb 01/05 15:09 Order name: Labs collected and sent; Complete Time: 15:59 kb 01/05 15:09 Order name: O2 Per Protocol; Complete Time: 15:59 kb 01/05 15:09 Order name: O2 Sat Monitoring; Complete Time: 15:59 kb EC:15 Rate is 148 beats/min. QRS Epes is Normal. QRS interval is normal at 80 msec. QT kb interval is normal at 464 msec. Clinical impression: Atrial Flutter. 15:34 Rate is 79 beats/min. Rhythm is regular. QRS Epes is Normal. [place] interval is normal at kb 198 msec. QRS interval is normal at 86 msec. QT interval is normal at 410 msec. Administered Medications: 15:25 Drug: Diltiazem IVP 20 mg IVP once; Over 2 minutes Route: IVP; Site: right antecubital; rs5 16:00 Follow up: Response: No adverse reaction rs5 15:25 Drug: NS 0.9% IV 1000 ml IV at 1000 ml once Route: IV; Rate: 1000 ml; Site: right rs5 antecubital; 16:01 Follow up: Response: No adverse reaction rs5 16:28 Follow up: IV Status: Completed infusion rs5 Disposition Summary: 01/06/24 18:59 Discharge Ordered Notes: Location: Home kb Condition: Stable kb Diagnosis - Palpitations kb Followup: kb - With: Emergency Department - When: As needed - Reason: Worsening of condition Followup: kb - With: Private Physician - When: 2 - 3 days - Reason: Recheck today's complaints, Continuance of care, Re-evaluation by your physician Discharge Instructions: - Discharge Summary Sheet kb - Palpitations, Itby-hb-Gbug kb Forms: - Medication Reconciliation Form kb - Antibiotic Education kb - Prescription Opioid Use kb - Patient Portal Instructions kb - Leadership Thank You Letter kb Signatures: Dispatcher [employer] EDJay Sueroistin, HADOOP ADMIN-C HADOOP ADMIN-Branden Hernandez, RN RN as6 Alex Amado, RN RN rs5 Corrections: (The following items were deleted from the chart) 15:38 15:36 Constitutional: This is a well developed, well nourished patient who is awake, kb alert, and in no acute distress. Head/Face: Normocephalic, atraumatic. ENT: Moist Mucous membranes Cardiovascular: Regular rate Respiratory: Respirations even and unlabored. No increased work of breathing. Talking in full sentences Abdomen/GI: Soft, non-tender. No distention Skin: Warm, dry with normal turgor. Normal color. MS/ Extremity: Pulses equal, no cyanosis. Neurovascular intact. Full, normal range of motion. Neuro: Awake and alert, GCS 15, oriented to person, place, time, and situation. Moves all extremities. Normal gait. kb
[2024-01-06 20:13] VITALS: BP 120/67; TEMP 97.6; O2SAT 98
--- NOTE | 2024-01-07 13:07 | EKG ---
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
--- NOTE | 2024-01-07 13:07 | EKG ---
Test Date: 2024-01-06 Test Time: 15:16:18 Graffiti Cleaner: ALP MEASUREMENT RESULTS: Intervals: Rate: 146 [place]: QRSD: 88 QT: 320 QTc: 498 [place]: P: NV: QRS: 47 T: 88 INTERPRETIVE STATEMENTS: Suspect unspecified pacemaker failure Atrial fibrillation with rapid ventricular response with occasional ventricular-paced complexes Nonspecific ST abnormality Abnormal ECG Compared to ECG 01/06/2024 15:15:38 No significant changes Electronically Signed On 01-07-24 13:06:03 CDT by Saleem Harper
--- NOTE | 2024-01-07 13:08 | EKG ---
Test Date: 2024-01-06 Test Time: 15:15:38 Entry Level Machine Operator: ALP MEASUREMENT RESULTS: Intervals: Rate: 148 [place]: QRSD: 80 QT: 296 QTc: 464 [place]: P: PA: QRS: 49 T: 94 INTERPRETIVE STATEMENTS: supraventricular tachycardia Nonspecific ST and T wave abnormality Abnormal ECG No previous ECG available for comparison Electronically Signed On 01-07-24 13:06:22 CDT by Saleem Harper
== END 2024-01-06 19:31 | disposition home or self-care (01) ==
LOC: ER 14:58
DX: R00.2 Palpitations (principal); I10 Essential (primary) hypertension; Z95.0 Presence of cardiac pacemaker; Z86.73 Personal history of transient ischemic attack (TIA), and cerebral infarction without residual deficits
CPT/HCPCS: 93005 ×3; 85025; 80048; 36415; 83735; 84443; 84484; 71045; J7030

== ENCOUNTER 2024-09-06 16:17 | Emergency (ER) | payer OTHER ==
--- OUTSIDE RECORDS SUMMARY | 2024-09-06 16:24 | XMS REPORT | Continuity of Care Document ---
Author Name Unknown Address [address] [facility] [address]. [address] [place] [address] [facility] thconnect Address [address] [facility]. [address] [place] [address] Care Team Providers Care Survey Associate Name Role Phone Sushila Babb Primary Care Physician [phone] ALAN MCCLAIN Attending Clinician Unavail able ALAN MCCLAIN Attending Clinician Unavail Alan Izaguirre MD Attending Clinician [phone] Shahram Marshall Attending Clinician [phone] SHAHRAM COLEY Attending Clinician Unavailable SHAHRAM COLEY Attending Clinician Unavailable LILI GARCIAS Attending Clinician Unavailable Lili Garcias MD Attending Clinician [phone] LOTTIE TRUONG Attending Clinician UnavailLOTTIE Wayne Attending Clinician UnavailNiya Morales RN Attending Clinician Unavailable LUCY LYNN Attending Clinician Unavailable Dustin Maharaj MD Attending Clinician [phone] Lucy Lynn DO Attending Clinician [phone] Shira Salgado MD Attending Clinician [phone] , [facility] Bed Attending Clinician Unavail Lottie Chong MD Attending Clinician Get Whittington MD Attending Clinician [phone] ALEXEY CLARKE Attending Clinician Unavailable JEAN ARROYO ALEXEY Attending Clinician Unavailable Doctor Unassigned, [place] Attending Clinician U aby Bates MD, Bruce TannerHDrew Attending Clinician + [phone] RICADRO LUJAN Attending Clinician Unavailable RICARDO LUJAN Attending Clinician Unavailable DELMI MENDOZA Attending Clinician Unav ailDELMI Nathan Attending Clinician Unav ailBRUCE Adams.HDrew Attending Clinician Unavailthuan ESTEBAN, EDUARDO Attending Clinician Unavailable 1, [facility] Attending Clinician Unavail able Harmeet TOVAR, Lottie Decker Attending Clinician + [phone] KIRILL ALVARADO Attending Clinician Unavailabl ORLANDO Espino Attending Clinician Unavailable ORLANDO EDWARD Attending Clinician Unavailable Carlito TOVAR, Eduardo Attending Clinician [phone] Kinsey Banegas MD Attending Clinician [phone] Pob, [facility] Main Attending Clinician Unavailabl altaf George [facility], Brian Aceves Attending Clinici an Cruz Huddleston MD Attending Clinician [phone] Niranjan Fisher RN Attending Clinician Unavail able Jacki Samuels DO Attending Clinician [phone] Russell Paul MD Attending Clinician [phone] Lucy Lynn DO Attending Clinician [phone] RADIOLOGY Attending Clinician Unavailable ALAN HARDING Attending Clinician Unavailabl e 2, [facility] Attending Clinician Unavailable CHATO CHAUHAN Attending Clinician Chato Haley MD Attending Clinician + [phone] IGNACIA CRUZ Attending Clinician Unavailable Only, [facility] Test Attending Clinician Unavailable Alan Harding PA-C Attending Clinician [phone] Neida [facility], Clint Attending Clinician [phone] Niya Smith RN Attending Clinician Unavailable RUSSELL PAUL Attending Clinician Unavailable ALBINA FULLER Attending Clinician Unavailable Albina Fuller PA-C Attending Clinician [phone] Kellie Barfield MD Attending Clinician + [phone] Alan Mcclain MD Attending Clinician SHAHRAM COLEY Admitting Clinician Unavailable ALAN MCCLAIN Admitting Clinician Unavail able SHIRA SALGADO Admitting Clinician Unavailable Shira Salgado MD Admitting Clinician [phone] ALEXEY CLARKE Admitting Clinician Unavailable DELMI MENDOZA Admitting Clinician Unav sivaable EDUARDO ESTEBAN Admitting Clinician Unavailable KIRILL ALVARADO Admitting Clinician Unavaildave Esteban MD, Eduardo Admitting Clinician [phone] RUSSELL PAUL Admitting Clinician Unavailable Russell Paul MD Admitting Clinician [phone] CHATO CHAUHAN Admitting Clinician UnaIGNACIA Linares Admitting Clinician Unavailable Payers Payer Name Policy Type Policy Number Effective Date Expirati on Date Source [employer] TOTAL CARE MEDICARE HMO DSNP [id number] 2020 00:00:00 [facility] DUAL COMP HMO D [facility] [id number] 2021 00:00:00 2023 00:00:00 [place] [id number] 2018 00:00:00 2022 00:00:00 MEDICAID DUAL COMPLETE HMO DSNP [facility] [id number] 2022 00:00:00 2022 00:00:00 Problems Condition Name Condition Details Condition Category Status Onset Date Resolution Date Last Treatment Date Treating Clinician Comments Source Nonsustain ed ventricula r tachycardi a Nonsustain ed ventricula r tachycardi a Disease Active 04-27 00:00: 00 [facility] Flu-like symptoms Flu-like symptoms Disease Active 04-25 00:00: 00 [facility] S/P placement of cardiac pacemaker S/P placement of cardiac pacemaker Disease Active 3-09 00:00: 00 [facility] History of CVA (cerebrova scular accident) without residual deficits History of CVA (cerebrova scular accident) without residual deficits Disease Active 09-18 00:00: 00 [facility] Nonobstruc tive atheroscle rosis of coronary artery Nonobstruc tive atheroscle rosis of coronary artery Disease Active 09-18 00:00: 00 [facility] THEODORE (obstructi ve sleep apnea) THEODORE (obstructi ve sleep apnea) Disease Active 09-18 00:00: 00 [facility] Atrial fibrillati on with RVR Atrial fibrillati on with RVR Disease Active 09-16 00:00: 00 [facility] A-fib A-fib Disease Active 10-25 00:00: 00 [facility] 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 Disease Active 2020-09 00:00: 00 [facility] Paroxysmal atrial fibrillati on with RVR Paroxysmal atrial fibrillati on with RVR Disease Active 2020-09 00:00: 00 [facility] Obesity (BMI 30-39.9) Obesity (BMI 30-39.9) Disease Active 2020-09 00:00: 00 [facility] Elevated brain natriureti c peptide (BNP) level Elevated brain natriureti c peptide (BNP) level Disease Active 2020-09 00:00: 00 [facility] Elevated brain natriureti c peptide (BNP) level Elevated brain natriureti c peptide (BNP) level Disease Active 2020-09 00:00: 00 [facility] Pancreatit is, unspecifie d pancreatit is type Pancreatit is, unspecifie d pancreatit is type Disease Active 2020-09 00:00: 00 [facility] Decreased coordinati on Decreased coordinati on Disease Active 2015-09 00:00: 00 [facility] Decreased pinch strength Decreased pinch strength Disease Active 2015-09 00:00: 00 [facility] 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 it account manager strength of left hand Decreased it account manager strength of left hand Disease Active 2015-09 00:00: 00 [facility] Decreased activities of daily living (ADL) Decreased activities of daily living (ADL) Disease Active 2015-09 00:00: 00 [facility] Cerebrovas cular accident (CVA) due to embolism of right carotid artery Cerebrovas cular accident (CVA) due to embolism of right carotid artery Disease Active 2015-09 00:00: 00 [facility] Gait abnormalit y Gait abnormalit y Disease Active 2015-09 00:00: 00 [facility] Weakness of both lower extremitie s Weakness of both lower extremitie s Disease Active 2015-09 00:00: 00 [facility] Cerebrovas cular accident (CVA) due to embolism of right carotid artery Cerebrovas cular accident (CVA) due to embolism of right carotid artery Disease Active 2015-09 00:00: 00 [facility] Weakness of both lower extremitie s Weakness of both lower extremitie s Disease Active 2015-09 00:00: 00 [facility] Left hand weakness Left hand weakness Disease Active 04-24 00:00: 00 [facility] S/P ablation of atrial fibrillati on S/P ablation of atrial fibrillati on Disease Active 04-23 00:00: 00 [facility] Pre-syncop e Pre-syncop e Disease Active 03-06 00:00: 00 [facility] History of endometria l cancer History of endometria l cancer Disease Active 10-01 00:00: 00 [facility] Back pain Back pain Disease Active 03-26 00:00: 00 [facility] Chest pain Chest pain Disease Active 03-26 00:00: 00 [facility] Atrial fibrillati on Atrial fibrillati on Disease Active 03-09 00:00: 00 [facility] DONNELLY (dyspnea on exertion) DONNELLY (dyspnea on exertion) Disease Active 02-09 00:00: 00 [facility] Malignant neoplasm of corpus uteri, except isthmus Malignant neoplasm of corpus uteri, except isthmus Disease Active 12-24 00:00: 00 [facility] Simple obesity Simple obesity Disease Active 11-25 00:00: 00 [facility] Type 2 diabetes mellitus without complicati ons Type 2 diabetes mellitus without complicati ons Disease Active 12-21 00:00: 00 Overview: Formattin g of this note might be different from the original. ICD10 Diagnosis Term Despatch Clerk Utility [facility] Type 2 diabetes mellitus with other specified complicati on Type 2 diabetes mellitus with other specified complicati on Disease Active 12-21 00:00: 00 Overview: Formattin g of this note might be different from the original. ICD10 Diagnosis Term Despatch Clerk Utility [facility] HLD (hyperlipi demia) HLD (hyperlipi demia) Disease Active 2005-09 00:00: 00 Overview: Formattin g of this note might be different from the original. ICD10 Diagnosis Term Despatch Clerk Utility [facility] Dyslipidem ia Dyslipidem ia Disease Active 2005-09 00:00: 00 Overview: Formattin g of this note might be different from the original. ICD10 Diagnosis Term Despatch Clerk Utility [facility] Essential hypertensi on, benign Essential hypertensi on, benign Disease Active 05-21 00:00: 00 [facility] Dysthymic disorder Dysthymic disorder Disease Active 05-21 00:00: 00 [facility] Essential hypertensi on Essential hypertensi on Disease Active 05-21 00:00: 00 [facility] Varicose veins of lower extremitie s Varicose veins of lower extremitie s Disease Active 05-08 00:00: 00 [facility] Abdominal pain, left lower quadrant Abdominal pain, left lower quadrant Disease Resolve d 2014-09 00:00: 00 2016-07-10 00:00:00 2016-07-10 12:28:50 [facility] Abdominal pain Abdominal pain Disease Resolve d 01-25 00:00: 00 2016-07-10 00:00:00 2016-07-10 12:28:47 [facility] Fever and chills Fever and chills Disease Resolve d 5- 00:00: 00 2016-07-10 00:00:00 2016-07-10 12:28:57 [facility] Atypical chest pain Atypical chest pain Disease Resolve d 3- 00:00: 00 2016-07-10 00:00:00 2016-07-10 12:28:31 [facility] Acute appendicit is Acute appendicit is Disease Resolve d 1-13 00:00: 00 2016-07-10 00:00:00 2016-07-10 12:28:42 [facility] Diabetes mellitus Diabetes mellitus Disease Resolve d 03-09 00:00: 00 2013-05-13 00:00:00 [facility] Pneumonia Pneumonia Disease Resolve d 6-11 00:00: 00 2013-05-13 00:00:00 2013-05-13 13:45:16 [facility] Uterine polyp Uterine polyp Disease Resolve d 4-03 00:00: 00 2013-05-13 00:00:00 2013-05-13 13:45:26 [facility] Postmenopa usal bleeding Postmenopa usal bleeding Disease Resolve d 3-27 00:00: 00 2013-05-13 00:00:00 2013-05-13 13:45:29 [facility] Elevated blood pressure reading without diagnosis of hypertensi on Elevated blood pressure reading without diagnosis of hypertensi on Disease Resolve d 05-08 00:00: 00 2012-12-23 00:00:00 2012-12-23 09:27:09 [facility] Allergies, Adverse Reactions, Alerts Allergy Name Allergy Type Status Severity Reaction(s) Onset Date Inactive Date Treating Clinician Comments Source Latex Propensi ty to adverse reaction s Active Rash 04-21 00:00: 00 [facility] LATEX DRUG INGREDI Active Med Rash 04-21 00:00: 00 [facility] METFORMI N DRUG INGREDI Active Unknown-Cmnt 2013-09 00:00: 00 [facility] Metformi n Propensi ty to adverse reaction s Active Unknown - See comments 2013-09 00:00: 00 Chills, hypoglyce ashley, nausea/vo miting [facility] PINDOLOL DRUG INGREDI Active Hallucinates 04-21 00:00: 00 [facility] Pindolol Propensi ty to adverse reaction s Active Hallucinatio ns 04-21 00:00: 00 [facility] PACLITAX EL DRUG INGREDI Active High Rash 03-09 00:00: 00 [facility] Paclitax el Propensi ty to adverse reaction s to drug Active Other - See comments 03-09 00:00: 00 atrial fibrillat ion [facility] Adhesive Tape-Jaymie icones Propensi ty to adverse reaction s Active Rash 02-19 00:00: 00 Including op site adhesives -- significa nt rash [facility] ADHESIVE TAPE-JAYMIE ICONES DRUG Active Rash 02-19 00:00: 00 [facility] Social History Social Habit Start Date Stop Date Quantity Comments Source History SDOH Social Connections Get Together [facility] History SDOH Social Connections Synagogue [facility] History SDOH Social Connections Membership [facility] History SDOH Social Connections Meetings [facility] Gender identity Univ [facility] Alcoholic beverage intake 2024-04-26 00:00:00 2024-04-26 00:00:00 0 /d [facility] History of Social function 2024-04-23 00:00:00 2024-04-23 00:00:00 [facility] Exposure to SARS-CoV-2 (event) 2022-12-16 00:00:00 2022-12-26 13:31:00 Not sure [facility] Tobacco use and exposure 2022-11-07 00:00:00 2022-11-07 00:00:00 Smokeless tobacco non-user [facility] Alcohol intake 2022-11-07 00:00:00 2022-11-07 00:00:00 0 /d [facility] History SDOH Social Connections Phone 2022-09-17 00:00:00 2022-09-17 00:00:00 5 [facility] History SDOH Social Connections Living 2022-09-17 00:00:00 2022-09-17 00:00:00 4 [facility] History SDOH Physical Activity DPW 2022-09-17 00:00:00 2022-09-17 00:00:00 3 [facility] History SDOH Physical Activity MPS 2022-09-17 00:00:00 2022-09-17 00:00:00 3 [facility] History SDOH Financial 2022-09-17 00:00:00 2022-09-17 00:00:00 4 [facility] History SDOH Food Worry 2022-09-17 00:00:00 2022-09-17 00:00:00 1 [facility] History SDOH Food Scarcity 2022-09-17 00:00:00 2022-09-17 00:00:00 1 [facility] History SDOH Transport Med 2022-09-17 00:00:00 2022-09-17 00:00:00 2 [facility] History SDOH Transport Non-Med 2022-09-17 00:00:00 2022-09-17 00:00:00 2 [facility] History SDOH Alcohol Frequency 2022-09-17 00:00:00 2022-09-17 00:00:00 1 [facility] History SDOH Alcohol Std Drinks 2022-09-17 00:00:00 2022-09-17 00:00:00 0 [facility] History SDOH Alcohol Binge 2022-09-17 00:00:00 2022-09-17 00:00:00 1 [facility] Alcohol Comment 2008-01-17 00:00:00 2008-01-17 00:00:00 OCCASIONALLY [facility] Sex assigned at 1955 00:00:00 1955 00:00:00 [facility] Smoking Status Start Date Stop Date Source Never smoked tobacco [facility] Medications Ordered Medication Name Filled Medication Name Start Date Stop Date Current Medication? Ordering Clinician Indication Dosage Frequency Signature (SIG) Comments Components Source cyclobenzap rine 10 mg tablet 2023-09 00:00: 00 Yes [id number] 10mg Take 1 tablet by mouth 3 (three) times daily as needed for Muscle Spasms. Also for pain, spine. [facility] insulin lispro (human) (HumaLOG U-100) injection 6 Units 2023-09 02:00: 00 07-09 02:09 :00 No 6U 6 Units, Subcutaneo us, ONCE, 1 dose, On Kirti 07/08/24 at 2000, Routine [facility] acetaminoph en (TYLENOL) tablet 1,000 mg 2023-09 00:00: 00 07-09 00:25 :00 No 1000mg 1,000 mg, Oral, ONCE NOW, 1 dose, On Kirti 07/08/24 at 1800, Routine [facility] metoclopram kassi HCl (REGLAN) injection 5 mg 2023-09 23:15: 00 07-09 00:26 :00 No 5mg 5 mg, Slow IV Push, ONCE, 1 dose, On Kirti 07/08/24 at 1715, SANG [facility] ondansetron 4 mg disintegrat ing tablet 2023-09 00:00: 00 07-08 00:00 :00 Yes [id number] 4mg Take 1 tablet by mouth every 8 (eight) hours as needed for Nausea and Vomiting (N/V). [facility] nitroglycer in 0.4 mg sublingual tablet 05-24 07:46: [address] 1 tablet under the tongue every 5 (five) minutes as needed for Chest pain. [facility] methocarbam oL 750 mg tablet 05-24 07:46: 35 Yes 750mg Take 1 tablet by mouth 4 (four) times daily. [facility] meloxicam 15 mg tablet 05-24 07:46: 35 Yes 15mg Take 1 tablet by mouth once daily as needed. [facility] insulin degludec (TRESIBA FLEXTOUCH U-100) 100 unit/mL (3 mL) InPn 05-24 07:46: 35 Yes INJECT UP TO A MAX OF 80 UNITS UNDER THE SKIN EVERY DAY. for 36 [facility] FARXIGA 10 mg tablet 05-24 07:46: 35 Yes 10mg Take 1 tablet by mouth in the morning. [facility] amLODIPine 10 mg tablet 05-24 07:46: 35 Yes 10mg Take 1 tablet by mouth in the morning. [facility] traMADoL 50 mg tablet 05-24 07:46: 35 08-01 00:00 :00 No 100mg Take 2 tablets by mouth every 6 (six) hours as needed. [facility] MOUNJARO 5 mg/0.5 mL subcutaneou s injection 05-18 00:00: 00 Yes 5mg inject 5 mg under the skin weekly. [facility] MOUNJARO 2.5 mg/0.5 mL subcutaneou s injection 05-17 00:00: 00 Yes INJECT 2.5 MG UNDER THE SKIN EVERY WEEK [facility] traMADoL (ULTRAM) tablet 50 mg 04-28 14:14: 46 Yes 50mg 50 mg, Oral, Q6HPRN, Starting on Fri04/28/24 at 0914, Until Discontinu ed, Routine, Pain (scale 7-10) [facility] amiodarone 200 mg tablet 04-28 00:00: 00 05-29 04:59 :00 No [id number] 200mg Take 1 tablet by mouth in the morning for 30 days. [facility] remdesivir 100 mg in NaCl 0.9% (NS) 100 mL MINI-BAG 04-27 21:00: 00 05-01 20:59 :00 No 100mg 100 mg, IV Infusion, DAILY AT 1600, 4 doses, First dose on Fri04/27/24 at 1600, Last dose on Fri04/30/24 at 1600, Administer over 60 Minutes, 100 mL, Is the patient mechanical ly ventilated ? NO [facility] KCL (KLOR-CON M20) tablet 40 mEq 04-27 13:00: 00 04-28 12:59 :00 No 40meq 40 mEq, Oral, BID, 3 doses, First dose on Fri04/27/24 at 0800, Last dose on Fri04/28/24 at 0800, Routine [facility] atorvastati n (LIPITOR) tablet 40 mg 04-27 02:00: 00 Yes 40mg 40 mg, Oral, QHS, First dose on Fri04/26/24 at 2100, Until Discontinu ed, Routine [facility] amiodarone (PACERONE) tablet 200 mg 04-27 01:00: 00 Yes 200mg 200 mg, Oral, BID, First dose on Fri04/26/24 at 2000, Until Discontinu ed, Routine [facility] cholecalcif luis a (vitamin D3) tablet 1,000 Units 04-26 14:00: 00 Yes 1000U 1,000 Units, Oral, DAILY, First dose on Fri04/26/24 at 0900, Until Discontinu ed, Routine [facility] lisinopriL (PRINIVIL,Z ESTRIL) tablet 20 mg 04-26 14:00: 00 Yes 20mg 20 mg, Oral, DAILY, First dose on Fri04/26/24 at 0900, Until Discontinu ed, Routine [facility] empaglifloz in (JARDIANCE) tablet 25 mg 04-26 14:00: 00 Yes 25mg 25 mg, Oral, DAILY, First dose on Fri04/26/24 at 0900, Until Discontinu ed, Routine, Is this a home medication ? No [facility] citalopram (CELEXA) tablet 10 mg 04-26 14:00: 00 Yes 10mg 10 mg, Oral, DAILY, First dose on Fri04/26/24 at 0900, Until Discontinu ed, Routine [facility] glipiZIDE (GLUCOTROL) tablet 5 mg 04-26 14:00: 00 04-26 19:38 :41 No 5mg 5 mg, Oral, DAILY, First dose on Fri04/26/24 at 0900, Until Discontinu ed, Routine [facility] ascorbic acid (vitamin C) (VITAMIN C) tablet 500 mg 04-26 13:00: 00 Yes 500mg 500 mg, Oral, BID, First dose on Fri04/26/24 at 0800, Until Discontinu ed, Routine [facility] zinc sulfate (ORAZINC) capsule 50 mg 04-26 13:00: 00 Yes 50mg 50 mg, Oral, TID, First dose on Fri04/26/24 at 0800, Until Discontinu ed, Routine [facility] apixaban (ELIQUIS) tablet 5 mg 04-26 13:00: 00 Yes 5mg 5 mg, Oral, BID, First dose on Fri04/26/24 at 0800, Until Discontinu ed, Routine, Indication s: Non-Valvul ar Atrial Fibrillati on [facility] Sliding Scale Insulin-Reg ular 04-26 12:30: 00 Yes Subcutaneo us, AC+HS, First dose on Fri04/26/24 at 0730, Until Discontinu ed, Routine [facility] pantoprazol e (PROTONIX) EC tablet 40 mg 04-26 11:00: 00 Yes 40mg 40 mg, Oral, QAM-0600, First dose on Fri04/26/24 at 0600, Until Discontinu ed [facility] diltiazem (CARDIZEM) tablet 30 mg 04-26 11:00: 00 Yes 30mg 30 mg, Oral, Q8H, First dose on Fri04/26/24 at 0600, Until Discontinu ed, Routine [facility] cyclobenzap rine (FLEXERIL) tablet 10 mg 04-26 07:29: 47 Yes 10mg 10 mg, Oral, TIDPRN, Starting on Fri04/26/24 at 0229, Until Discontinu ed, Routine, Muscle Spasms [facility] amiodarone 150 mg/100 mL (NEXTERONE) RTU infusion 150 mg 04-26 04:45: 00 04-26 04:49 :00 No 150mg 150 mg, IV Piggyback, ONCE, 1 dose, On Fri04/25/24 at 2345, Administer over 10 Minutes, 100 mL [facility] magnesium sulfate in D5W 1 gram/100 mL RTU IV Piggyback 1 g 04-26 04:30: 00 04-26 04:49 :00 No 1g 1 g, IV Piggyback, ONCE, 1 dose, On Fri04/25/24 at 2330, Administer over 60 Minutes, 100 mL [facility] HCL injection 1 mg 04-26 04:24: 46 Yes 1mg [facility] dextrose 50 % in water (D50W) injection 25 mL 04-26 04:24: 45 Yes 25mL [facility] ondansetron (ZOFRAN (PF)) injection 4 mg 04-26 04:24: 35 Yes 4mg 4 mg, Slow IV Push, Q6HPRN, Starting on Fri04/25/24 at 2324, Until Discontinu ed, Routine, Nausea and Vomiting (N/V) [facility] traMADoL (ULTRAM) tablet 50 mg 04-26 04:24: 27 04-28 04:23 :27 No 50mg 50 mg, Oral, Q8HPRN, Starting on Fri04/25/24 at 2324, Until Fri04/27/24 at 2323, Routine, Pain (scale 4-6) [facility] acetaminoph en (TYLENOL) tablet 650 mg 04-26 04:24: 25 Yes 650mg 650 mg, Oral, Q6HPRN, Starting on Fri04/25/24 at 2324, Until Discontinu ed, Routine, Pain (scale 1-3) [facility] NaCl 0.9% (NS) bolus infusion 1,000 mL 04-26 04:00: 00 04-26 04:39 :00 No 1000mL at 999 mL/hr, 1,000 mL, IV Infusion, ONCE, 1 dose, On 04/25/24 at 2300, STAT [facility] ondansetron (ZOFRAN (PF)) injection 4 mg 04-26 03:00: 00 04-26 02:27 :00 No 4mg 4 mg, Slow IV Push, ONCE, 1 dose, [facility] 04/25/24 [facility] 2200[facility] ([facility] tablet 975 mg 04-26 03:00: 00 04-26 02:27 :00 No 975mg 975 mg, Oral, ONCE, 1 dose, On 04/25/24 at 2200, [facility] BD INSULIN PEN NEEDLE UF 31 gauge x 5/16" Ndle 04-06 00:00: 00 Yes USE DIRECTED ONCE DAILY [facility] FREESTYLE MARGOT 3 SENSOR Annette 04-05 00:00: 00 Yes USE 1 SENSOR DIRECTED UNDER THE SKIN EVERY 14 DAYS [facility] oxybutynin XL 5 mg 24 hr tablet 04-05 00:00: 00 07-05 05:59 :00 No 5mg Take 1 tablet by mouth in the morning. [facility] enoxaparin (LOVENOX) 100 mg/mL injection 13 00:00: 00 02-14 04:59 :00 No [id number] 90mg inject 0.9 mL under the skin every 12 (twelve) hours for 2 days. [facility] diltiazem 30 mg tablet 01-31 00:00: 00 Yes [id number] 30mg Take 1 tablet by mouth every 8 (eight) hours. [facility] LISINOPRIL 20 mg tablet 01-09 00:00: 00 Yes TAKE ONE TABLET BY MOUTH EVERY MORNING AND 1 TABLET IN EVENING [facility] empaglifloz in 25 mg Tab 12-18 15:19: 50 Yes Take by mouth daily. [facility] alendronate 70 mg tablet 12-18 15:19: 50 Yes 70mg Take 1 tablet by mouth weekly. [facility] diclofenac 75 mg EC tablet 12-18 15:19: 50 Yes 75mg Take 1 tablet by mouth in the morning and 1 tablet in the evening. Take with meals. [facility] doxycycline hyclate (Vibramycin ) capsule 100 mg 11-09 00:00: 00 11-15 22:59 :00 No [id number] 100mg 100 mg, Oral, Q12HA2, 14 doses, First dose on Fri11/08/22 at 1800, Last dose on Fri11/15/22 at 0600, SANG
Re ason for Anti-Infec tive: Surgical Prophylaxi s
Surgi kin Prophylaxi s: Cardiothor acic
Du ration of therapy: within 24 hours of surgery [facility] empaglifloz in 25 mg Tab 11-08 19:04: 14 Yes Take by mouth daily. [facility] alendronate 70 mg tablet 11-08 19:04: 14 Yes 70mg Take 1 tablet by mouth weekly. [facility] diclofenac 75 mg EC tablet 11-08 19:04: 14 Yes 75mg Take 1 tablet by mouth in the morning and 1 tablet in the evening. Take with meals. [facility] coenzyme Q10 100 mg softgel 11-08 19:04: 14 04-26 00:00 :00 No 100mg Take 1 capsule by mouth in the morning. [facility] loratadine 10 mg capsule 11-08 19:04: 14 04-23 00:00 :00 No Take by mouth as needed. [facility] empaglifloz in (JARDIANCE) tablet 25 mg 11-08 15:00: 00 Yes [id number] 25mg 25 mg, Oral, DAILY, First dose on Fri11/08/22 at 0900, Until Discontinu ed
Is this a home medication ? Yes
Has this patient brought their own medication ? No
Rafael atkinson will dispense the medication from inpatient. Pharmacy will dispense the medication from inpatient.
Inpati ent ordering of this medication is not allowed unless the patient is maintained on this medication at home, and home supply is unavailabl e. Does this order meet the criteria for inpatient ordering? Yes [facility] citalopram (CELEXA) tablet 10 mg 11-08 15:00: 00 Yes [id number] 10mg 10 mg, Oral, DAILY, First dose on Fri11/08/22 at 0900, Until Discontinu ed, Routine [facility] vancomycin 1250 mg in NS 250 mL RTU IV Piggyback 1,250 mg 11-08 08:00: 00 11-08 20:49 :00 No [id number] 1250mg 1,250 mg, IV Piggyback, Q12H ABX, 2 doses, First dose on Fri11/08/22 at 0200, Last dose on Fri11/08/22 at 1400, Administer over 90 Minutes, 250 mL, CV Recovery to Floor
R corie for Anti-Infec tive: Surgical Prophylaxi s
Surgi kin Prophylaxi s: Cardiothor acic
Du ration of therapy: within 24 hours of surgery [facility] HYDROcodone -acetaminop hen (NORCO 5) 5-325 mg tablet 1 tablet 11-08 05:09: 59 Yes [id number] 1{tbl} 1 tablet, Oral, Q6HPRN, 2 doses, Starting on Fri11/07/22 at 2309, Until Discontinu ed, Routine, Pain (scale 7-10), Pain (scale 4-6) [facility] diltiazem (CARDIZEM) tablet 30 mg 11-08 04:00: 00 Yes [id number] 30mg 30 mg, Oral, Q8H, First dose on Fri11/07/22 at 2200, Until Discontinu ed, Routine [facility] atorvastati n (LIPITOR) tablet 40 mg 11-08 03:00: 00 Yes [id number] 40mg 40 mg, Oral, QHS, First dose on Fri11/07/22 at 2100, Until Discontinu ed, Routine [facility] omeprazole (PRILOSEC) capsule 20 mg 11-08 02:00: 00 Yes [id number] 20mg 20 mg, Oral, BID, First dose on Kirti 11/07/22 at 2000, Until Discontinu ed, Routine [facility] lisinopriL (PRINIVIL,Z ESTRIL) tablet 20 mg 11-08 02:00: 00 Yes [id number] 20mg 20 mg, Oral, BID, First dose on Kirti 11/07/22 at 2000, Until Discontinu ed, Routine [facility] HYDROcodone -acetaminop hen (NORCO 5) 5-325 mg tablet 1 tablet 11-08 00:45: 00 11-07 23:51 :00 No [id number] 1{tbl} 1 tablet, Oral, ONCE, 1 dose, On Kirti 11/07/22 at 1845, Routine [facility] doxycycline hyclate 100 mg capsule 11-08 00:00: 00 11-16 04:59 :00 No [id number] 100mg Take 1 capsule by mouth every 12 (twelve) hours for 7 days. [facility] cyclobenzap rine (FLEXERIL) tablet 10 mg 11-07 22:17: 45 Yes [id number] 10mg 10 mg, Oral, TIDPRN, Starting on Kirti 11/07/22 at 1617, Until Discontinu ed, Routine, Muscle Spasms [facility] iohexol (OMNIPAQUE 300-100 mL) injection 11-07 21:55: 00 Yes ONCE INTRA PROCEDURE, Starting on Kirti 11/07/22 at 1555, Until Discontinu ed, Routine, CV Intraproce dure [facility] lidocaine 1% (PF) (XYLOCAINE) injection 11-07 20:42: 02 11-07 21:59 :55 No ONCE INTRA PROCEDURE, Starting on Kirti 11/07/22 at 1442, Until Kirti 11/07/22 at 1559, Routine, CV Intraproce dure [facility] vancomycin 1000 mg in NS 200 mL RTU IV Piggyback 11-07 20:35: 00 11-07 20:30 :00 No CONTINUOUS PRN, Starting on Kirti 11/07/22 at 1435, Until Kirti 11/07/22 at 1430, Administer over 60 Minutes, CV Intraproce dure [facility] midazolam (VERSED) injection 11-07 20:30: 58 11-07 21:59 :55 No ONCE INTRA PROCEDURE, Starting on Kirti 11/07/22 at 1430, Until Kirti 11/07/22 at 1559, Routine, CV Intraproce dure [facility] FENTanyl PF (SUBLIMAZE (PF)) injection 11-07 20:30: 42 11-07 21:59 :55 No ONCE INTRA PROCEDURE, Starting on Kirti 11/07/22 at 1430, Until Kirti 11/07/22 at 1559, Routine, CV Intraproce dure [facility] coenzyme Q10 100 mg softgel 10-03 14:57: 35 Yes 100mg Take 100 mg by mouth daily. [facility] coenzyme Q10 100 mg softgel 09-23 13:55: 38 Yes 100mg Take 100 mg by mouth daily. [facility] atorvastati n 40 mg tablet 09-23 00:00: 00 Yes [id number] 40mg Take 1 tablet by mouth at bedtime. [facility] diltiazem 30 mg tablet 09-23 00:00: 00 01-31 00:00 :00 No [id number] 30mg Take 1 tablet by mouth every 8 (eight) hours. [facility] empaglifloz in 25 mg Tab 09-19 16:16: 02 Yes Take by mouth daily. [facility] loratadine 10 mg capsule 09-19 16:16: 02 Yes Take by mouth as needed. [facility] coenzyme Q10 100 mg softgel 09-19 16:16: 02 Yes 100mg Take 100 mg by mouth daily. [facility] diltiazem 30 mg tablet 09-19 00:00: 00 09-23 00:00 :00 No [id number] 30mg Take 1 tablet by mouth every 8 (eight) hours for 30 days. [facility] diltiazem (CARDIZEM) tablet 30 mg 09-18 20:00: 00 Yes 30mg 30 mg, Oral, Q8H, First dose (after last modificati on) on Fri09/18/22 at 1400, Until Discontinu ed, Routine [facility] atorvastati n (LIPITOR) tablet 40 mg 09-18 03:00: 00 Yes 40mg 40 mg, Oral, QHS, First dose on Fri09/17/22 at 2100, Until Discontinu ed, Routine [facility] omeprazole (PRILOSEC) capsule 20 mg 09-17 15:00: 00 Yes 20mg 20 mg, Oral, DAILY, First dose on Fri09/17/22 at 0900, Until Discontinu ed, Routine [facility] empaglifloz in (JARDIANCE) tablet 25 mg 09-17 15:00: 00 Yes 25mg 25 mg, Oral, DAILY, First dose on Fri09/17/22 at 0900, Until Discontinu ed
Is this a home medication ? Yes
Has this patient brought their own medication ? No
Rafael atkinson will dispense the medication from inpatient. Pharmacy will dispense the medication from inpatient.
Inpati ent ordering of this medication is not allowed unless the patient is maintained on this medication at home, and home supply is unavailabl e. Does this order meet the criteria for inpatient ordering? Yes [facility] citalopram (CELEXA) tablet 10 mg 09-17 15:00: 00 Yes 10mg 10 mg, Oral, DAILY, First dose on Fri09/17/22 at 0900, Until Discontinu ed, Routine [facility] glipiZIDE (GLUCOTROL) tablet 5 mg 09-17 15:00: 00 Yes 5mg 5 mg, Oral, DAILY, First dose on Fri09/17/22 at 0900, Until Discontinu ed, Routine [facility] apixaban (ELIQUIS) tablet 5 mg 09-17 14:00: 00 Yes 5mg 5 mg, Oral, BID, First dose on Fri09/17/22 at 0800, Until Discontinu ed, Routine
Indicatio ns: Non-Valvul ar Atrial Fibrillati on [facility] Sliding Scale Insulin-Reg ular + Fsbg Testing 09-17 13:30: 00 Yes Subcutaneo us, AC+HS, First dose on Fri09/17/22 at 0730, Until Discontinu ed, Routine [facility] NaCl 0.9% (NS) IV infusion 1,000 mL 09-17 07:30: 00 09-17 17:41 :00 No 1000mL at 100 mL/hr, IV Infusion, ONCE, 1 dose, On Fri09/17/22 at 0130, Routine [facility] glucagon (GLUCAGEN DIAGNOSTIC KIT) injection 1 mg 09-17 04:21: 18 Yes 1mg 1 mg, Intramuscu lar, PRN, Starting on Fri09/16/22 at 2221, Until Discontinu ed, SANG, Blood Glucose < or = 70 mg/dL and patient is unable to swallow or has mental changes. [facility] dextrose 50 % in water (D50W) injection 25 mL 09-17 04:21: 18 Yes 25mL 25 mL, Slow IV Push, PRN, Starting on Fri09/16/22 at 2221, Until Discontinu ed, SANG, Blood Glucose < or = 70 mg/dL and patient is unable to swallow or has mental status changes. [facility] cyclobenzap rine (FLEXERIL) tablet 10 mg 09-17 04:13: 32 Yes 10mg 10 mg, Oral, TIDPRN, Starting on Fri09/16/22 at 2213, Until Discontinu ed, Routine, Muscle Spasms [facility] digoxin (LANOXIN) injection 500 mcg 09-17 02:15: 00 09-17 01:53 :00 No 500ug 500 mcg, Intravenou s, ONCE, 1 dose, On Fri09/16/22 at 2015, Routine [facility] diltiazem (CARDIZEM IV) injection 10 mg 09-17 02:15: 00 09-17 01:53 :00 No 10mg 10 mg, IV Push, ONCE, 1 dose, On Fri09/16/22 at 2015, STAT
Fa culty member approving Restricted medication : RUSSELL PALU [facility] diltiazem (CARDIZEM) tablet 30 mg 09-17 00:00: 00 09-18 15:54 :29 No 30mg 30 mg, Oral, Q6H, First dose on Fri09/16/22 at 1800, Until Discontinu ed, Routine [facility] acetaminoph en-codeine (TYLENOL #3) 300-30 mg tablet 1 tablet 09-16 23:49: 01 09-18 23:48 :01 No 1{tbl} 1 tablet, Oral, Q6HPRN, Starting on Fri09/16/22 at 1749, Until Fri09/18/22 at 1748, Routine, Pain (scale 4-6) [facility] acetaminoph en (TYLENOL) tablet 650 mg 09-16 23:49: 00 Yes 650mg 650 mg, Oral, Q6HPRN, Starting on Fri09/16/22 at 1749, Until Discontinu ed, Routine, Pain (scale 1-3) [facility] diltiazem (CARDIZEM IV) injection 15 mg 09-16 23:45: 00 09-16 23:39 :00 No 15mg 15 mg, IV Push, ONCE, 1 dose, On Fri09/16/22 at 1745, STAT
Fa culty member approving Restricted medication : JACKI SAMUELS [facility] diltiazem (CARDIZEM IV) injection 25 mg 09-16 21:30: 00 09-16 21:20 :00 No 25mg 25 mg, IV Push, ONCE, 1 dose, On 09/16/22 at 1530, STAT
[facility] JACKI SAMUELS [facility] lisinopriL 20 mg tablet 2021-09 14:37: 53 07-08 00:00 :00 No 20mg Take 20 mg by mouth 2 (two) times daily. [facility] lisinopriL 20 mg tablet 2021-09 00:00: 00 01-09 00:00 :00 No 20mg Take 1 tablet by mouth in the morning and 1 tablet in the evening. [facility] empaglifloz in 25 mg Tab 03-22 15:15: 24 Yes Take by mouth daily. [facility] loratadine 10 mg capsule 03-22 15:15: 24 Yes Take by mouth as needed. [facility] coenzyme Q10 100 mg softgel 03-22 15:15: 24 Yes 100mg Take 1 capsule by mouth in the morning. [facility] lisinopriL 20 mg tablet 03-22 15:15: 24 Yes 20mg Take 20 mg by mouth 2 (two) times daily. [facility] nitroglycer in (NITROSTAT) 0.4 mg sublingual tablet 01-09 13:20: 35 01-09 00:00 :[address] 0.4 mg under the tongue every 5 (five) minutes as needed for Chest pain. [facility] estradioL 0.01 % (0.1 mg/gram) vaginal cream 10-22 00:00: 00 04-26 00:00 :00 No [id number] Apply a thin layer to affected area twice per week [facility] amLODIPine 10 mg tablet 09-04 00:00: 00 09-23 00:00 :00 No [facility] amiodarone 200 mg tablet 2020-09 00:00: 00 01-09 00:00 :00 No [id number] 200mg Take 1 tablet by mouth daily. [facility] omeprazole 20 mg capsule 2020-09 00:00: 00 Yes 20mg Take 1 capsule in the morning and 1 capsule in the evening. [facility] glipiZIDE 5 mg tablet 2020-09 00:00: 00 Yes 5mg Take 1 tablet by mouth in the morning. [facility] citalopram 10 mg tablet 2020-09 00:00: 00 Yes 10mg Take 1 tablet in the morning. [facility] atorvastati n 40 mg tablet 2019-09 0 00:00: 00 09-23 00:00 :00 No 40mg Take 1 tablet by mouth at bedtime. [facility] cyclobenzap rine 10 mg tablet 05-26 00:00: 00 07-20 00:00 :00 No [id number] 10mg Take 1 tablet by mouth 3 (three) times daily as needed for Muscle Spasms. Also for pain, spine. [facility] apixaban 5 mg tablet 02-03 00:00: 00 Yes [id number] 5mg Take 1 tablet by mouth 2 (two) times daily. [facility] alendronate 70 mg tablet 10-03 00:00: 00 09-19 00:00 :00 No 70mg Take 1 tablet by mouth weekly. [facility] calcium carbonate-v itamin D3 1,000 mg(2,500 mg)-800 unit Tab 05-06 00:00: 00 Yes 1{tbl} Take 1 Tab by mouth daily. [facility] Immunizations Ordered Immunization Name Filled Immunization Name Date Status Comments Source SARS-COV-2 COVID-19 MODERNA VACCINE 2020-11-04 00:00:00 Completed [facility] SARS-COV-2 COVID-19 MODERNA 12+ YRS VACCINE 2020-11-04 00:00:00 Completed [facility] SARS-COV-2 COVID-19 MODERNA 12+ YRS VACCINE 2020-11-04 00:00:00 Completed [facility] SARS-COV-2 COVID-19 MODERNA 12+ YRS VACCINE 2020-11-04 00:00:00 Completed [facility] SARS-COV-2 COVID-19 MODERNA 12+ YRS VACCINE 2020-11-04 00:00:00 Completed [facility] SARS-COV-2 COVID-19 MODERNA 12+ YRS VACCINE 2020-11-04 00:00:00 Completed [facility] SARS-COV-2 COVID-19 MODERNA 12+ YRS VACCINE 2020-11-04 00:00:00 Completed [facility] SARS-COV-2 COVID-19 MODERNA 12+ YRS VACCINE 2020-11-04 00:00:00 Completed [facility] SARS-COV-2 COVID-19 MODERNA 12+ YRS VACCINE 2020-11-04 00:00:00 Completed [facility] SARS-COV-2 COVID-19 MODERNA 12+ YRS VACCINE 2020-11-04 00:00:00 Completed [facility] SARS-COV-2 COVID-19 MODERNA 12+ YRS VACCINE 2020-11-04 00:00:00 Completed [facility] SARS-COV-2 COVID-19 MODERNA 12+ YRS VACCINE 2020-11-04 00:00:00 Completed [facility] SARS-COV-2 COVID-19 MODERNA 12+ YRS VACCINE 2020-11-04 00:00:00 Completed [facility] SARS-COV-2 COVID-19 MODERNA 12+ YRS VACCINE 2020-11-04 00:00:00 Completed [facility] SARS-COV-2 COVID-19 MODERNA 12+ YRS VACCINE 2020-11-04 00:00:00 Completed [facility] SARS-COV-2 COVID-19 MODERNA 12+ YRS VACCINE 2020-11-04 00:00:00 Completed [facility] SARS-COV-2 COVID-19 MODERNA 12+ YRS VACCINE 2020-11-04 00:00:00 Completed [facility] SARS-COV-2 COVID-19 MODERNA 12+ YRS VACCINE 2020-11-04 00:00:00 Completed [facility] SARS-COV-2 COVID-19 MODERNA 12+ YRS VACCINE 2020-11-04 00:00:00 Completed [facility] SARS-COV-2 COVID-19 MODERNA 12+ YRS VACCINE 2020-11-04 00:00:00 Completed [facility] SARS-COV-2 COVID-19 MODERNA 12+ YRS VACCINE 2020-11-04 00:00:00 Completed [facility] SARS-COV-2 COVID-19 MODERNA 12+ YRS VACCINE 2020-11-04 00:00:00 Completed [facility] SARS-COV-2 COVID-19 MODERNA 12+ YRS VACCINE 2020-11-04 00:00:00 Completed [facility] SARS-COV-2 COVID-19 MODERNA 12+ YRS VACCINE 2020-11-04 00:00:00 Completed [facility] SARS-COV-2 COVID-19 MODERNA 12+ YRS VACCINE 2020-11-04 00:00:00 Completed [facility] SARS-COV-2 COVID-19 MODERNA 12+ YRS VACCINE 2020-11-04 00:00:00 Completed [facility] SARS-COV-2 COVID-19 MODERNA 12+ YRS VACCINE 2020-11-04 00:00:00 Completed [facility] SARS-COV-2 COVID-19 MODERNA 12+ YRS VACCINE 2020-11-04 00:00:00 Completed [facility] SARS-COV-2 COVID-19 MODERNA 12+ YRS VACCINE 2020-11-04 00:00:00 Completed [facility] SARS-COV-2 COVID-19 MODERNA 12+ YRS VACCINE 2020-11-04 00:00:00 Completed [facility] SARS-COV-2 COVID-19 MODERNA 12+ YRS VACCINE 2020-11-04 00:00:00 Completed [facility] SARS-COV-2 COVID-19 MODERNA 12+ YRS VACCINE 2020-11-04 00:00:00 Completed [facility] SARS-COV-2 COVID-19 MODERNA 12+ YRS VACCINE 2020-11-04 00:00:00 Completed SARS-COV-2 COVID-19 MODERNA 12+ YRS VACCINE 2020-11-04 00:00:00 Completed SARS-COV-2 COVID-19 MODERNA VACCINE 2020-10-10 00:00:00 Completed [facility] SARS-COV-2 COVID-19 MODERNA 12+ YRS VACCINE 2020-10-10 00:00:00 Completed [facility] SARS-COV-2 COVID-19 MODERNA 12+ YRS VACCINE 2020-10-10 00:00:00 Completed [facility] SARS-COV-2 COVID-19 MODERNA 12+ YRS VACCINE 2020-10-10 00:00:00 Completed [facility] SARS-COV-2 COVID-19 MODERNA 12+ YRS VACCINE 2020-10-10 00:00:00 Completed [facility] SARS-COV-2 COVID-19 MODERNA 12+ YRS VACCINE 2020-10-10 00:00:00 Completed [facility] SARS-COV-2 COVID-19 MODERNA 12+ YRS VACCINE 2020-10-10 00:00:00 Completed [facility] SARS-COV-2 COVID-19 MODERNA 12+ YRS VACCINE 2020-10-10 00:00:00 Completed [facility] SARS-COV-2 COVID-19 MODERNA 12+ YRS VACCINE 2020-10-10 00:00:00 Completed [facility] SARS-COV-2 COVID-19 MODERNA 12+ YRS VACCINE 2020-10-10 00:00:00 Completed [facility] SARS-COV-2 COVID-19 MODERNA 12+ YRS VACCINE 2020-10-10 00:00:00 Completed [facility] SARS-COV-2 COVID-19 MODERNA 12+ YRS VACCINE 2020-10-10 00:00:00 Completed [facility] SARS-COV-2 COVID-19 MODERNA 12+ YRS VACCINE 2020-10-10 00:00:00 Completed [facility] SARS-COV-2 COVID-19 MODERNA 12+ YRS VACCINE 2020-10-10 00:00:00 Completed [facility] SARS-COV-2 COVID-19 MODERNA 12+ YRS VACCINE 2020-10-10 00:00:00 Completed [facility] SARS-COV-2 COVID-19 MODERNA 12+ YRS VACCINE 2020-10-10 00:00:00 Completed [facility] SARS-COV-2 COVID-19 MODERNA 12+ YRS VACCINE 2020-10-10 00:00:00 Completed [facility] SARS-COV-2 COVID-19 MODERNA 12+ YRS VACCINE 2020-10-10 00:00:00 Completed [facility] SARS-COV-2 COVID-19 MODERNA 12+ YRS VACCINE 2020-10-10 00:00:00 Completed [facility] SARS-COV-2 COVID-19 MODERNA 12+ YRS VACCINE 2020-10-10 00:00:00 Completed [facility] SARS-COV-2 COVID-19 MODERNA 12+ YRS VACCINE 2020-10-10 00:00:00 Completed [facility] SARS-COV-2 COVID-19 MODERNA 12+ YRS VACCINE 2020-10-10 00:00:00 Completed [facility] SARS-COV-2 COVID-19 MODERNA 12+ YRS VACCINE 2020-10-10 00:00:00 Completed [facility] SARS-COV-2 COVID-19 MODERNA 12+ YRS VACCINE 2020-10-10 00:00:00 Completed [facility] SARS-COV-2 COVID-19 MODERNA 12+ YRS VACCINE 2020-10-10 00:00:00 Completed [facility] SARS-COV-2 COVID-19 MODERNA 12+ YRS VACCINE 2020-10-10 00:00:00 Completed [facility] SARS-COV-2 COVID-19 MODERNA 12+ YRS VACCINE 2020-10-10 00:00:00 Completed [facility] SARS-COV-2 COVID-19 MODERNA 12+ YRS VACCINE 2020-10-10 00:00:00 Completed [facility] SARS-COV-2 COVID-19 MODERNA 12+ YRS VACCINE 2020-10-10 00:00:00 Completed [facility] SARS-COV-2 COVID-19 MODERNA 12+ YRS VACCINE 2020-10-10 00:00:00 Completed [facility] SARS-COV-2 COVID-19 MODERNA 12+ YRS VACCINE 2020-10-10 00:00:00 Completed [facility] SARS-COV-2 COVID-19 MODERNA 12+ YRS VACCINE 2020-10-10 00:00:00 Completed [facility] SARS-COV-2 COVID-19 MODERNA 12+ YRS VACCINE 2020-10-10 00:00:00 Completed SARS-COV-2 COVID-19 MODERNA 12+ YRS VACCINE 2020-10-10 00:00:00 Completed Influenza Virus Vaccine Quad .5 mL IM 6+ MO 2020-07-07 00:00:00 Completed [facility] Influenza Virus Vaccine Quad .5 mL IM 6+ MO 2020-07-07 00:00:00 Completed [facility] Influenza Virus Vaccine Quad .5 mL IM 6+ MO 2020-07-07 00:00:00 Completed [facility] Influenza Virus Vaccine Quad .5 mL IM 6+ MO 2020-07-07 00:00:00 Completed [facility] Influenza Virus Vaccine Quad .5 mL IM 6+ MO 2020-07-07 00:00:00 Completed [facility] Influenza Virus Vaccine Quad .5 mL IM 6+ MO 2020-07-07 00:00:00 Completed [facility] Influenza Virus Vaccine Quad .5 mL IM 6+ MO 2020-07-07 00:00:00 Completed [facility] Influenza Virus Vaccine Quad .5 mL IM 6+ MO 2020-07-07 00:00:00 Completed [facility] Influenza Virus Vaccine Quad .5 mL IM 6+ MO 2020-07-07 00:00:00 Completed [facility] Influenza Virus Vaccine Quad .5 mL IM MO 2020-07-07 00:00:00 Completed [facility] Influenza Virus Vaccine Quad .5 mL IM 6+ MO 2020-07-07 00:00:00 Completed [facility] Influenza Virus Vaccine Quad .5 mL IM 6+ MO 2020-07-07 00:00:00 Completed [facility] Influenza Virus Vaccine Quad .5 mL IM 6+ MO 2020-07-07 00:00:00 Completed [facility] Influenza Virus Vaccine Quad .5 mL IM 6+ MO 2020-07-07 00:00:00 Completed [facility] Influenza Virus Vaccine Quad .5 mL IM 6+ MO 2020-07-07 00:00:00 Completed [facility] Influenza Virus Vaccine Quad .5 mL IM 6+ MO 2020-07-07 00:00:00 Completed [facility] Influenza Virus Vaccine Quad .5 mL IM 6+ MO 2020-07-07 00:00:00 Completed [facility] Influenza Virus Vaccine Quad .5 mL IM 6+ MO 2020-07-07 00:00:00 Completed [facility] Influenza Virus Vaccine Quad .5 mL IM 6+ MO 2020-07-07 00:00:00 Completed [facility] Influenza Virus Vaccine Quad .5 mL IM 6+ MO 2020-07-07 00:00:00 Completed [facility] Influenza Virus Vaccine Quad .5 mL IM 6+ MO 2020-07-07 00:00:00 Completed [facility] Influenza Virus Vaccine Quad .5 mL IM 6+ MO 2020-07-07 00:00:00 Completed [facility] Influenza Virus Vaccine Quad .5 mL IM 6+ MO 2020-07-07 00:00:00 Completed [facility] Influenza Virus Vaccine Quad .5 mL IM 6+ MO 2020-07-07 00:00:00 Completed [facility] Influenza Virus Vaccine Quad .5 mL IM 6+ MO 2020-07-07 00:00:00 Completed [facility] Influenza Virus Vaccine Quad .5 mL IM 6+ MO 2020-07-07 00:00:00 Completed [facility] Influenza Virus Vaccine Quad .5 mL IM 6+ MO 2020-07-07 00:00:00 Completed [facility] Influenza Virus Vaccine Quad .5 mL IM 6+ MO 2020-07-07 00:00:00 Completed [facility] Influenza Virus Vaccine Quad .5 mL IM 6+ MO 2020-07-07 00:00:00 Completed [facility] Influenza Virus Vaccine Quad .5 mL IM 6+ MO 2020-07-07 00:00:00 Completed [facility] Influenza Virus Vaccine Quad .5 mL IM 6+ MO 2020-07-07 00:00:00 Completed [facility] Influenza Virus Vaccine Quad .5 mL IM 6+ MO 2020-07-07 00:00:00 Completed [facility] Influenza Virus Vaccine Quad .5 mL IM 6+ MO (FLUZONE/FLULAVAL/F LUARIX) 2020-07-07 00:00:00 Completed [facility] Influenza Virus Vaccine Quad .5 mL IM 6+ MO (FLUZONE/FLULAVAL/F LUARIX) 2020-07-07 00:00:00 Completed [facility] TDAP 2019-06-05 00:00:00 Completed [facility] TDAP 2019-06-05 00:00:00 Completed [facility] TDAP 2019-06-05 00:00:00 Completed [facility] TDAP 2019-06-05 00:00:00 Completed [facility] TDAP 2019-06-05 00:00:00 Completed [facility] TDAP 2019-06-05 00:00:00 Completed [facility] TDAP 2019-06-05 00:00:00 Completed [facility] TDAP 2019-06-05 00:00:00 Completed [facility] TDAP 2019-06-05 00:00:00 Completed [facility] TDAP 2019-06-05 00:00:00 Completed [facility] TDAP 2019-06-05 00:00:00 Completed [facility] TDAP 2019-06-05 00:00:00 Completed [facility] TDAP 2019-06-05 00:00:00 Completed [facility] TDAP 2019-06-05 00:00:00 Completed [facility] TDAP 2019-06-05 00:00:00 Completed [facility] TDAP 2019-06-05 00:00:00 Completed [facility] TDAP 2019-06-05 00:00:00 Completed [facility] TDAP 2019-06-05 00:00:00 Completed [facility] TDAP 2019-06-05 00:00:00 Completed [facility] TDAP 2019-06-05 00:00:00 Completed [facility] TDAP 2019-06-05 00:00:00 Completed [facility] TDAP 2019-06-05 00:00:00 Completed [facility] TDAP 2019-06-05 00:00:00 Completed [facility] TDAP 2019-06-05 00:00:00 Completed [facility] TDAP 2019-06-05 00:00:00 Completed [facility] TDAP 2019-06-05 00:00:00 Completed [facility] TDAP 2019-06-05 00:00:00 Completed [facility] TDAP 2019-06-05 00:00:00 Completed [facility] TDAP 2019-06-05 00:00:00 Completed [facility] TDAP 2019-06-05 00:00:00 Completed [facility] TDAP 2019-06-05 00:00:00 Completed [facility] TDAP 2019-06-05 00:00:00 Completed [facility] TDAP 2019-06-05 00:00:00 Completed [facility] TDAP 2019-06-05 00:00:00 Completed [facility] TDAP 2019-06-05 00:00:00 Completed [facility] Influenza Virus Vaccine Quad IM 3+ YRS 2019-06-01 00:00:00 Completed [facility] Influenza Virus Vaccine Quad IM 3+ YRS 2019-06-01 00:00:00 Completed [facility] Influenza Virus Vaccine Quad IM 3+ YRS 2019-06-01 00:00:00 Completed [facility] Influenza Virus Vaccine Quad IM 3+ YRS 2019-06-01 00:00:00 Completed [facility] Influenza Virus Vaccine Quad IM 3+ YRS 2019-06-01 00:00:00 Completed [facility] Influenza Virus Vaccine Quad IM 3+ YRS 2019-06-01 00:00:00 Completed [facility] Influenza Virus Vaccine Quad IM 3+ YRS 2019-06-01 00:00:00 Completed [facility] Influenza Virus Vaccine Quad IM 3+ YRS 2019-06-01 00:00:00 Completed [facility] Influenza Virus Vaccine Quad IM 3+ YRS 2019-06-01 00:00:00 Completed [facility] Influenza Virus Vaccine Quad IM 3+ YRS 2019-06-01 00:00:00 Completed [facility] Influenza Virus Vaccine Quad IM 3+ YRS 2019-06-01 00:00:00 Completed [facility] Influenza Virus Vaccine Quad IM 3+ YRS 2019-06-01 00:00:00 Completed [facility] Influenza Virus Vaccine Quad IM 3+ YRS 2019-06-01 00:00:00 Completed [facility] Influenza Virus Vaccine Quad IM 3+ YRS 2019-06-01 00:00:00 Completed [facility] Influenza Virus Vaccine Quad IM 3+ YRS 2019-06-01 00:00:00 Completed [facility] Influenza Virus Vaccine Quad IM 3+ YRS 2019-06-01 00:00:00 Completed [facility] Influenza Virus Vaccine Quad IM 3+ YRS 2019-06-01 00:00:00 Completed [facility] Influenza Virus Vaccine Quad IM 3+ YRS 2019-06-01 00:00:00 Completed [facility] Influenza Virus Vaccine Quad IM 3+ YRS 2019-06-01 00:00:00 Completed [facility] Influenza Virus Vaccine Quad IM 3+ YRS 2019-06-01 00:00:00 Completed [facility] Influenza Virus Vaccine Quad IM 3+ YRS 2019-06-01 00:00:00 Completed [facility] Influenza Virus Vaccine Quad IM 3+ YRS 2019-06-01 00:00:00 Completed [facility] Influenza Virus Vaccine Quad IM 3+ YRS 2019-06-01 00:00:00 Completed [facility] Influenza Virus Vaccine Quad IM 3+ YRS 2019-06-01 00:00:00 Completed [facility] Influenza Virus Vaccine Quad IM 3+ YRS 2019-06-01 00:00:00 Completed [facility] Influenza Virus Vaccine Quad IM 3+ YRS 2019-06-01 00:00:00 Completed [facility] Influenza Virus Vaccine Quad IM 3+ YRS 2019-06-01 00:00:00 Completed [facility] Influenza Virus Vaccine Quad IM 3+ YRS 2019-06-01 00:00:00 Completed [facility] Influenza Virus Vaccine Quad IM 3+ YRS 2019-06-01 00:00:00 Completed [facility] Influenza Virus Vaccine Quad IM 3+ YRS 2019-06-01 00:00:00 Completed [facility] Influenza Virus Vaccine Quad IM 3+ YRS 2019-06-01 00:00:00 Completed [facility] Influenza Virus Vaccine Quad IM 3+ YRS 2019-06-01 00:00:00 Completed [facility] Influenza Virus Vaccine Quad IM 3+ YRS 2019-06-01 00:00:00 Completed [facility] Influenza Virus Vaccine Quad IM 3+ YRS 2019-06-01 00:00:00 Completed Influenza Virus Vaccine Quad IM 3+ YRS 2019-06-01 00:00:00 Completed Influenza Virus Vaccine Quad IM Multi-dose 6+ MO 2016-09-27 00:00:00 Completed [facility] Influenza Virus Vaccine Quad IM Multi-dose 6+ MO 2016-09-27 00:00:00 Completed [facility] Influenza Virus Vaccine Quad IM Multi-dose 6+ MO 2016-09-27 00:00:00 Completed [facility] Influenza Virus Vaccine Quad IM Multi-dose 6+ MO 2016-09-27 00:00:00 Completed [facility] Influenza Virus Vaccine Quad IM Multi-dose 6+ MO 2016-09-27 00:00:00 Completed [facility] Influenza Virus Vaccine Quad IM Multi-dose 6+ MO 2016-09-27 00:00:00 Completed [facility] Influenza Virus Vaccine Quad IM Multi-dose 6+ MO 2016-09-27 00:00:00 Completed [facility] Influenza Virus Vaccine Quad IM Multi-dose 6+ MO 2016-09-27 00:00:00 Completed [facility] Influenza Virus Vaccine Quad IM Multi-dose 6+ MO 2016-09-27 00:00:00 Completed [facility] Influenza Virus Vaccine Quad IM Multi-dose 6+ MO 2016-09-27 00:00:00 Completed [facility] Influenza Virus Vaccine Quad IM Multi-dose 6+ MO 2016-09-27 00:00:00 Completed [facility] Influenza Virus Vaccine Quad IM Multi-dose 6+ MO 2016-09-27 00:00:00 Completed [facility] Influenza Virus Vaccine Quad IM Multi-dose 6+ MO 2016-09-27 00:00:00 Completed [facility] Influenza Virus Vaccine Quad IM Multi-dose 6+ MO 2016-09-27 00:00:00 Completed [facility] Influenza Virus Vaccine Quad IM Multi-dose 6+ MO 2016-09-27 00:00:00 Completed [facility] Influenza Virus Vaccine Quad IM Multi-dose 6+ MO 2016-09-27 00:00:00 Completed [facility] Influenza Virus Vaccine Quad IM Multi-dose 6+ MO 2016-09-27 00:00:00 Completed [facility] Influenza Virus Vaccine Quad IM Multi-dose 6+ MO 2016-09-27 00:00:00 Completed [facility] Influenza Virus Vaccine Quad IM Multi-dose 6+ MO 2016-09-27 00:00:00 Completed [facility] Influenza Virus Vaccine Quad IM Multi-dose 6+ MO 2016-09-27 00:00:00 Completed [facility] Influenza Virus Vaccine Quad IM Multi-dose 6+ MO 2016-09-27 00:00:00 Completed [facility] Influenza Virus Vaccine Quad IM Multi-dose 6+ MO 2016-09-27 00:00:00 Completed [facility] Influenza Virus Vaccine Quad IM Multi-dose 6+ MO 2016-09-27 00:00:00 Completed [facility] Influenza Virus Vaccine Quad IM Multi-dose 6+ MO 2016-09-27 00:00:00 Completed [facility] Influenza Virus Vaccine Quad IM Multi-dose 6+ MO 2016-09-27 00:00:00 Completed [facility] Influenza Virus Vaccine Quad IM Multi-dose 6+ MO 2016-09-27 00:00:00 Completed [facility] Influenza Virus Vaccine Quad IM Multi-dose 6+ MO 2016-09-27 00:00:00 Completed [facility] Influenza Virus Vaccine Quad IM Multi-dose 6+ MO 2016-09-27 00:00:00 Completed [facility] Influenza Virus Vaccine Quad IM Multi-dose 6+ MO 2016-09-27 00:00:00 Completed [facility] Influenza Virus Vaccine Quad IM Multi-dose 6+ MO 2016-09-27 00:00:00 Completed [facility] Influenza Virus Vaccine Quad IM Multi-dose 6+ MO 2016-09-27 00:00:00 Completed [facility] Influenza Virus Vaccine Quad IM Multi-dose 6+ MO 2016-09-27 00:00:00 Completed [facility] Influenza Virus Vaccine Quad IM Multi-dose 6+ MO 2016-09-27 00:00:00 Completed [facility] Influenza Virus Vaccine Quad IM Multi-dose 6+ MO 2016-09-27 00:00:00 Completed Influenza Virus Vaccine Quad IM Multi-dose 6+ MO 2016-09-27 00:00:00 Completed Influenza Virus Vaccine Quad IM 3+ YRS 2015-08-22 00:00:00 Completed [facility] Influenza Virus Vaccine Quad IM 3+ YRS 2015-08-22 00:00:00 Completed [facility] Influenza Virus Vaccine Quad IM 3+ YRS 2015-08-22 00:00:00 Completed [facility] Influenza Virus Vaccine Quad IM 3+ YRS 2015-08-22 00:00:00 Completed [facility] Influenza Virus Vaccine Quad IM 3+ YRS 2015-08-22 00:00:00 Completed [facility] Influenza Virus Vaccine Quad IM 3+ YRS 2015-08-22 00:00:00 Completed [facility] Influenza Virus Vaccine Quad IM 3+ YRS 2015-08-22 00:00:00 Completed [facility] Influenza Virus Vaccine Quad IM 3+ YRS 2015-08-22 00:00:00 Completed [facility] Influenza Virus Vaccine Quad IM 3+ YRS 2015-08-22 00:00:00 Completed [facility] Influenza Virus Vaccine Quad IM 3+ YRS 2015-08-22 00:00:00 Completed [facility] Influenza Virus Vaccine Quad IM 3+ YRS 2015-08-22 00:00:00 Completed [facility] Influenza Virus Vaccine Quad IM 3+ YRS 2015-08-22 00:00:00 Completed [facility] Influenza Virus Vaccine Quad IM 3+ YRS 2015-08-22 00:00:00 Completed [facility] Influenza Virus Vaccine Quad IM 3+ YRS 2015-08-22 00:00:00 Completed [facility] Influenza Virus Vaccine Quad IM 3+ YRS 2015-08-22 00:00:00 Completed [facility] Influenza Virus Vaccine Quad IM 3+ YRS 2015-08-22 00:00:00 Completed [facility] Influenza Virus Vaccine Quad IM 3+ YRS 2015-08-22 00:00:00 Completed [facility] Influenza Virus Vaccine Quad IM 3+ YRS 2015-08-22 00:00:00 Completed [facility] Influenza Virus Vaccine Quad IM 3+ YRS 2015-08-22 00:00:00 Completed [facility] Influenza Virus Vaccine Quad IM 3+ YRS 2015-08-22 00:00:00 Completed [facility] Influenza Virus Vaccine Quad IM 3+ YRS 2015-08-22 00:00:00 Completed [facility] Influenza Virus Vaccine Quad IM 3+ YRS 2015-08-22 00:00:00 Completed [facility] Influenza Virus Vaccine Quad IM 3+ YRS 2015-08-22 00:00:00 Completed [facility] Influenza Virus Vaccine Quad IM 3+ YRS 2015-08-22 00:00:00 Completed [facility] Influenza Virus Vaccine Quad IM 3+ YRS 2015-08-22 00:00:00 Completed [facility] Influenza Virus Vaccine Quad IM 3+ YRS 2015-08-22 00:00:00 Completed [facility] Influenza Virus Vaccine Quad IM 3+ YRS 2015-08-22 00:00:00 Completed [facility] Influenza Virus Vaccine Quad IM 3+ YRS 2015-08-22 00:00:00 Completed [facility] Influenza Virus Vaccine Quad IM 3+ YRS 2015-08-22 00:00:00 Completed [facility] Influenza Virus Vaccine Quad IM 3+ YRS 2015-08-22 00:00:00 Completed [facility] Influenza Virus Vaccine Quad IM 3+ YRS 2015-08-22 00:00:00 Completed [facility] Influenza Virus Vaccine Quad IM 3+ YRS 2015-08-22 00:00:00 Completed [facility] Influenza Virus Vaccine Quad IM 3+ YRS 2015-08-22 00:00:00 Completed [facility] Influenza Virus Vaccine Quad IM 3+ YRS 2015-08-22 00:00:00 Completed [facility] Influenza Virus Vaccine Quad IM 3+ YRS 2015-08-22 00:00:00 Completed [facility] Pneumococcal Polysaccharide, PPSV23 (PNEUMOVAX) 2013-08-10 00:00:00 Completed [facility] Pneumococcal Polysaccharide, PPSV23 (PNEUMOVAX) 2013-08-10 00:00:00 Completed [facility] Pneumococcal Polysaccharide, PPSV23 (PNEUMOVAX) 2013-08-10 00:00:00 Completed [facility] Pneumococcal Polysaccharide, PPSV23 (PNEUMOVAX) 2013-08-10 00:00:00 Completed [facility] Pneumococcal Polysaccharide, PPSV23 (PNEUMOVAX) 2013-08-10 00:00:00 Completed [facility] Pneumococcal Polysaccharide, PPSV23 (PNEUMOVAX) 2013-08-10 00:00:00 Completed [facility] Pneumococcal Polysaccharide, PPSV23 (PNEUMOVAX) 2013-08-10 00:00:00 Completed [facility] Pneumococcal Polysaccharide, PPSV23 (PNEUMOVAX) 2013-08-10 00:00:00 Completed [facility] Pneumococcal Polysaccharide, PPSV23 (PNEUMOVAX) 2013-08-10 00:00:00 Completed [facility] Pneumococcal Polysaccharide, PPSV23 (PNEUMOVAX) 2013-08-10 00:00:00 Completed [facility] Pneumococcal Polysaccharide, PPSV23 (PNEUMOVAX) 2013-08-10 00:00:00 Completed [facility] Pneumococcal Polysaccharide, PPSV23 (PNEUMOVAX) 2013-08-10 00:00:00 Completed [facility] Pneumococcal Polysaccharide, PPSV23 (PNEUMOVAX) 2013-08-10 00:00:00 Completed [facility] Pneumococcal Polysaccharide, PPSV23 (PNEUMOVAX) 2013-08-10 00:00:00 Completed [facility] Pneumococcal Polysaccharide, PPSV23 (PNEUMOVAX) 2013-08-10 00:00:00 Completed [facility] Pneumococcal Polysaccharide, PPSV23 (PNEUMOVAX) 2013-08-10 00:00:00 Completed [facility] Pneumococcal Polysaccharide, PPSV23 (PNEUMOVAX) 2013-08-10 00:00:00 Completed [facility] Pneumococcal Polysaccharide, PPSV23 (PNEUMOVAX) 2013-08-10 00:00:00 Completed [facility] Pneumococcal Polysaccharide, PPSV23 (PNEUMOVAX) 2013-08-10 00:00:00 Completed [facility] Pneumococcal Polysaccharide, PPSV23 (PNEUMOVAX) 2013-08-10 00:00:00 Completed [facility] Pneumococcal Polysaccharide, PPSV23 (PNEUMOVAX) 2013-08-10 00:00:00 Completed [facility] Pneumococcal Polysaccharide, PPSV23 (PNEUMOVAX) 2013-08-10 00:00:00 Completed [facility] Pneumococcal Polysaccharide, PPSV23 (PNEUMOVAX) 2013-08-10 00:00:00 Completed [facility] Pneumococcal Polysaccharide, PPSV23 (PNEUMOVAX) 2013-08-10 00:00:00 Completed [facility] Pneumococcal Polysaccharide, PPSV23 (PNEUMOVAX) 2013-08-10 00:00:00 Completed [facility] Pneumococcal Polysaccharide, PPSV23 (PNEUMOVAX) 2013-08-10 00:00:00 Completed [facility] Pneumococcal Polysaccharide, PPSV23 (PNEUMOVAX) 2013-08-10 00:00:00 Completed [facility] Pneumococcal Polysaccharide, PPSV23 (PNEUMOVAX) 2013-08-10 00:00:00 Completed [facility] Pneumococcal Polysaccharide, PPSV23 (PNEUMOVAX) 2013-08-10 00:00:00 Completed [facility] Pneumococcal Polysaccharide, PPSV23 (PNEUMOVAX) 2013-08-10 00:00:00 Completed [facility] Pneumococcal Polysaccharide, PPSV23 (PNEUMOVAX) 2013-08-10 00:00:00 Completed [facility] Pneumococcal Polysaccharide, PPSV23 (PNEUMOVAX) 2013-08-10 00:00:00 Completed [facility] Pneumococcal Polysaccharide, PPSV23 (PNEUMOVAX) 2013-08-10 00:00:00 Completed [facility] Pneumococcal Polysaccharide, PPSV23 (PNEUMOVAX) 2013-08-10 00:00:00 Completed [facility] Pneumococcal Polysaccharide, PPSV23 (PNEUMOVAX) 2013-08-10 00:00:00 Completed [facility] Influenza Virus Vaccine - Whole 2012-07-08 00:00:00 Completed [facility] Influenza Virus Vaccine - Whole 2012-07-08 00:00:00 Completed [facility] TDAP (ADACEL) VACCINE 2008-02-07 00:00:00 Completed [facility] TDAP (ADACEL) VACCINE 2008-02-07 00:00:00 Completed [facility] TDAP (ADACEL) VACCINE 2008-02-07 00:00:00 Completed [facility] TDAP (ADACEL) VACCINE 2008-02-07 00:00:00 Completed [facility] TDAP (ADACEL) VACCINE 2008-02-07 00:00:00 Completed [facility] TDAP (ADACEL) VACCINE 2008-02-07 00:00:00 Completed [facility] TDAP (ADACEL) VACCINE 2008-02-07 00:00:00 Completed [facility] TDAP (ADACEL) VACCINE 2008-02-07 00:00:00 Completed [facility] TDAP (ADACEL) VACCINE 2008-02-07 00:00:00 Completed [facility] TDAP (ADACEL) VACCINE 2008-02-07 00:00:00 Completed [facility] TDAP (ADACEL) VACCINE 2008-02-07 00:00:00 Completed [facility] TDAP (ADACEL) VACCINE 2008-02-07 00:00:00 Completed [facility] TDAP (ADACEL) VACCINE 2008-02-07 00:00:00 Completed [facility] TDAP (ADACEL) VACCINE 2008-02-07 00:00:00 Completed [facility] TDAP (ADACEL) VACCINE 2008-02-07 00:00:00 Completed [facility] TDAP (ADACEL) VACCINE 2008-02-07 00:00:00 Completed [facility] TDAP (ADACEL) VACCINE 2008-02-07 00:00:00 Completed [facility] TDAP (ADACEL) VACCINE 2008-02-07 00:00:00 Completed [facility] TDAP (ADACEL) VACCINE 2008-02-07 00:00:00 Completed [facility] TDAP (ADACEL) VACCINE 2008-02-07 00:00:00 Completed [facility] TDAP (ADACEL) VACCINE 2008-02-07 00:00:00 Completed [facility] TDAP (ADACEL) VACCINE 2008-02-07 00:00:00 Completed [facility] TDAP (ADACEL) VACCINE 2008-02-07 00:00:00 Completed [facility] TDAP (ADACEL) VACCINE 2008-02-07 00:00:00 Completed [facility] TDAP (ADACEL) VACCINE 2008-02-07 00:00:00 Completed [facility] TDAP (ADACEL) VACCINE 2008-02-07 00:00:00 Completed [facility] TDAP (ADACEL) VACCINE 2008-02-07 00:00:00 Completed [facility] TDAP (ADACEL) VACCINE 2008-02-07 00:00:00 Completed [facility] TDAP (ADACEL) VACCINE 2008-02-07 00:00:00 Completed [facility] TDAP (ADACEL) VACCINE 2008-02-07 00:00:00 Completed [facility] TDAP (ADACEL) VACCINE 2008-02-07 00:00:00 Completed [facility] TDAP (ADACEL) VACCINE 2008-02-07 00:00:00 Completed [facility] TDAP (ADACEL) VACCINE 2008-02-07 00:00:00 Completed [facility] TDAP (ADACEL) VACCINE 2008-02-07 00:00:00 Completed [facility] TDAP (ADACEL) VACCINE 2008-02-07 00:00:00 Completed [facility] Pneumococcal Polysaccharide, PPSV23 (PNEUMOVAX) Unknown Completed [facility] TDAP (ADACEL) VACCINE Unknown Completed [facility] Influenza Virus Vaccine Quad IM Multi-dose 6+ MO Unknown Completed [facility] Influenza Virus Vaccine Quad .5 mL IM 6+ MO (FLUZONE/FLULAVAL/F LUARIX) Unknown Completed [facility] SARS-COV-2 COVID-19 MODERNA 12+ YRS VACCINE Unknown Completed [facility] Pneumococcal Polysaccharide, PPSV23 (PNEUMOVAX) Unknown Completed [facility] TDAP (ADACEL) VACCINE Unknown Completed [facility] Influenza Virus Vaccine Quad IM 3+ YRS Unknown Completed [facility] Influenza Virus Vaccine Quad IM Multi-dose 6+ MO Unknown Completed [facility] SARS-COV-2 COVID-19 MODERNA 12+ YRS VACCINE Unknown Completed [facility] Pneumococcal Polysaccharide, PPSV23 (PNEUMOVAX) Unknown Completed [facility] TDAP (ADACEL) VACCINE Unknown Completed [facility] Influenza Virus Vaccine Quad IM 3+ YRS Unknown Completed [facility] Influenza Virus Vaccine Quad IM Multi-dose 6+ MO Unknown Completed [facility] SARS-COV-2 COVID-19 MODERNA 12+ YRS VACCINE Unknown Completed [facility] Pneumococcal Polysaccharide, PPSV23 (PNEUMOVAX) Unknown Completed [facility] TDAP (ADACEL) VACCINE Unknown Completed [facility] Influenza Virus Vaccine Quad IM 3+ YRS Unknown Completed [facility] Influenza Virus Vaccine Quad IM Multi-dose 6+ MO Unknown Completed [facility] SARS-COV-2 COVID-19 MODERNA 12+ YRS VACCINE Unknown Completed [facility] Pneumococcal Polysaccharide, PPSV23 (PNEUMOVAX) Unknown Completed [facility] TDAP (ADACEL) VACCINE Unknown Completed [facility] Influenza Virus Vaccine Quad IM 3+ YRS Unknown Completed [facility] Influenza Virus Vaccine Quad IM Multi-dose 6+ MO Unknown Completed [facility] SARS-COV-2 COVID-19 MODERNA 12+ YRS VACCINE Unknown Completed [facility] Pneumococcal Polysaccharide, PPSV23 (PNEUMOVAX) Unknown Completed [facility] TDAP (ADACEL) VACCINE Unknown Completed [facility] Influenza Virus Vaccine Quad IM 3+ YRS Unknown Completed [facility] Influenza Virus Vaccine Quad IM Multi-dose 6+ MO Unknown Completed [facility] SARS-COV-2 COVID-19 MODERNA 12+ YRS VACCINE Unknown Completed [facility] Pneumococcal Polysaccharide, PPSV23 (PNEUMOVAX) Unknown Completed [facility] TDAP (ADACEL) VACCINE Unknown Completed [facility] Influenza Virus Vaccine Quad IM 3+ YRS Unknown Completed [facility] Influenza Virus Vaccine Quad IM Multi-dose 6+ MO Unknown Completed [facility] SARS-COV-2 COVID-19 MODERNA 12+ YRS VACCINE Unknown Completed [facility] Pneumococcal Polysaccharide, PPSV23 (PNEUMOVAX) Unknown Completed [facility] TDAP (ADACEL) VACCINE Unknown Completed [facility] Influenza Virus Vaccine Quad IM 3+ YRS Unknown Completed [facility] Influenza Virus Vaccine Quad IM Multi-dose 6+ MO Unknown Completed [facility] SARS-COV-2 COVID-19 MODERNA 12+ YRS VACCINE Unknown Completed [facility] Pneumococcal Polysaccharide, PPSV23 (PNEUMOVAX) Unknown Completed [facility] TDAP (ADACEL) VACCINE Unknown Completed [facility] Influenza Virus Vaccine Quad IM 3+ YRS Unknown Completed [facility] Influenza Virus Vaccine Quad IM Multi-dose 6+ MO Unknown Completed [facility] SARS-COV-2 COVID-19 MODERNA 12+ YRS VACCINE Unknown Completed [facility] Pneumococcal Polysaccharide, PPSV23 (PNEUMOVAX) Unknown Completed [facility] TDAP (ADACEL) VACCINE Unknown Completed [facility] Influenza Virus Vaccine Quad IM 3+ YRS Unknown Completed [facility] Pneumococcal Polysaccharide, PPSV23 (PNEUMOVAX) Unknown Completed [facility] TDAP (ADACEL) VACCINE Unknown Completed [facility] Influenza Virus Vaccine Quad IM 3+ YRS Unknown Completed [facility] Influenza Virus Vaccine Quad IM Multi-dose 6+ MO Unknown Completed [facility] SARS-COV-2 COVID-19 MODERNA 12+ YRS VACCINE Unknown Completed [facility] Pneumococcal Polysaccharide, PPSV23 (PNEUMOVAX) Unknown Completed [facility] TDAP (ADACEL) VACCINE Unknown Completed [facility] Influenza Virus Vaccine Quad IM 3+ YRS Unknown Completed [facility] Influenza Virus Vaccine Quad IM Multi-dose 6+ MO Unknown Completed [facility] SARS-COV-2 COVID-19 MODERNA 12+ YRS VACCINE Unknown Completed [facility] Pneumococcal Polysaccharide, PPSV23 (PNEUMOVAX) Unknown Completed [facility] TDAP (ADACEL) VACCINE Unknown Completed [facility] Influenza Virus Vaccine Quad IM 3+ YRS Unknown Completed [facility] Influenza Virus Vaccine Quad IM Multi-dose 6+ MO Unknown Completed [facility] SARS-COV-2 COVID-19 MODERNA 12+ YRS VACCINE Unknown Completed [facility] Pneumococcal Polysaccharide, PPSV23 (PNEUMOVAX) Unknown Completed [facility] TDAP (ADACEL) VACCINE Unknown Completed [facility] Influenza Virus Vaccine Quad IM 3+ YRS Unknown Completed [facility] Influenza Virus Vaccine Quad IM Multi-dose 6+ MO Unknown Completed [facility] SARS-COV-2 COVID-19 MODERNA 12+ YRS VACCINE Unknown Completed [facility] Pneumococcal Polysaccharide, PPSV23 (PNEUMOVAX) Unknown Completed [facility] TDAP (ADACEL) VACCINE Unknown Completed [facility] Influenza Virus Vaccine Quad IM 3+ YRS Unknown Completed [facility] Influenza Virus Vaccine Quad IM Multi-dose 6+ MO Unknown Completed [facility] SARS-COV-2 COVID-19 MODERNA 12+ YRS VACCINE Unknown Completed [facility] Vital Signs Vital Name Observation Time Observation Value Comments S ource Systolic blood pressure 2024-07-20 16:05:00 170 mm[Hg] [facility] Diastolic blood pressure 2024-07-20 16:05:00 74 mm[Hg] [facility] Heart rate 2024-07-20 16:05:00 76 /min [facility] Respiratory rate 2024-07-20 16:05:00 18 /min [facility] Body height 2024-07-20 16:05:00 162.6 cm [facility] Body weight 2024-07-20 16:05:00 87.799 kg [facility] BMI 2024-07-20 16:05:00 33.22 kg/m2 [facility] Oxygen saturation in Arterial blood by Pulse oximetry 2024-07-20 16:05:00 96 /min [facility] Systolic blood pressure 2024-07-09 02:13:00 141 mm[Hg] [facility] Diastolic blood pressure 2024-07-09 02:13:00 76 mm[Hg] [facility] Heart rate 2024-07-09 02:13:00 82 /min [facility] Body temperature 2024-07-09 02:13:00 36.61 Su [facility] Respiratory rate 2024-07-09 02:13:00 18 /min [facility] Oxygen saturation in Arterial blood by Pulse oximetry 2024-07-09 02:13:00 95 /min [facility] Body height 2024-07-08 22:57:00 162.6 cm [facility] Body weight 2024-07-08 22:57:00 86.637 kg [facility] BMI 2024-07-08 22:57:00 32.79 kg/m2 [facility] Systolic blood pressure 2024-07-07 19:55:00 143 mm[Hg] [facility] Diastolic blood pressure 2024-07-07 19:55:00 65 mm[Hg] [facility] Heart rate 2024-07-07 19:55:00 93 /[facility] Respiratory rate 2024-07-07 19:55:00 14 /min [facility] Oxygen saturation in Arterial blood by Pulse oximetry 2024-07-07 19:55:00 92 /min [facility] Systolic blood pressure 2024-04-28 22:40:00 126 mm[Hg] [facility] Diastolic blood pressure 2024-04-28 22:40:00 80 mm[Hg] [facility] Heart rate 2024-04-28 22:40:00 84 /min [facility] Respiratory rate 2024-04-28 22:40:00 14 /min [facility] Oxygen saturation in Arterial blood by Pulse oximetry 2024-04-28 22:40:00 97 /min [facility] Body temperature 2024-04-28 16:00:00 35.94 Su [facility] Body weight 2024-04-28 09:00:00 87.998 kg [facility] BMI 2024-04-28 09:00:00 32.28 kg/m2 [facility] Body height 2024-04-26 06:02:[address] [facility] Systolic blood pressure 2024-04-23 19:53:00 167 mm[Hg] [facility] Diastolic blood pressure 2024-04-23 19:53:00 65 mm[Hg] [facility] Heart rate 2024-04-23 19:53:00 70 /min [facility] Body height 2024-04-23 19:53:[address] [facility] Body weight 2024-04-23 19:53:00 88.769 kg [facility] BMI 2024-04-23 19:53:00 32.57 kg/m2 [facility] Oxygen saturation in Arterial blood by Pulse oximetry 2024-04-23 19:53:00 99 /min [facility] Systolic blood pressure 2022-12-18 20:22:00 137 mm[Hg] [facility] Diastolic blood pressure 2022-12-18 20:22:00 80 mm[Hg] [facility] Heart rate 2022-12-18 20:22:00 66 /min [facility] Body temperature 2022-12-18 20:22:00 36.11 Su [facility] Respiratory rate 2022-12-18 20:22:00 17 /min [facility] Body height 2022-12-18 20:22:[address] [facility] Body weight 2022-12-18 20:22:00 90.855 kg [facility] BMI 2022-12-18 20:22:00 34.38 kg/m2 [facility] Oxygen saturation in Arterial blood by Pulse oximetry 2022-12-18 20:22:00 96 /min [facility] Systolic blood pressure 2022-11-08 17:49:00 137 mm[Hg] [facility] Diastolic blood pressure 2022-11-08 17:49:00 76 mm[Hg] [facility] Heart rate 2022-11-08 17:49:00 65 /min [facility] Body temperature 2022-11-08 17:49:00 36.61 Su [facility] Respiratory rate 2022-11-08 17:49:00 19 /min [facility] Oxygen saturation in Arterial blood by Pulse oximetry 2022-11-08 17:49:00 96 /min [facility] Body height 2022-11-08 00:41:00 162.6 cm [facility] Body weight 2022-11-08 00:41:00 88.451 kg [facility] BMI 2022-11-08 00:41:00 33.45 kg/m2 [facility] Systolic blood pressure 2022-11-07 20:23:57 205 mm[Hg] [facility] Diastolic blood pressure 2022-11-07 20:23:57 88 mm[Hg] [facility] Heart rate 2022-11-07 20:23:57 67 /min [facility] Respiratory rate 2022-11-07 20:23:57 18 /min [facility] Oxygen saturation in Arterial blood by Pulse oximetry 2022-11-07 20:23:57 100 /min [facility] Body height 2022-11-07 20:08:56 162.6 cm [facility] Body weight 2022-11-07 20:08:56 88.451 kg [facility] BMI 2022-11-07 20:08:56 33.45 kg/m2 [facility] Body temperature 2022-11-07 18:33:00 35.67 Su [facility] Systolic blood pressure 2022-10-03 21:00:00 138 mm[Hg] [facility] Diastolic blood pressure 2022-10-03 21:00:00 58 mm[Hg] [facility] Heart rate 2022-10-03 21:00:00 63 /min [facility] Body temperature 2022-10-03 21:00:00 36.44 Su [facility] Body height 2022-10-03 21:00:[address] [facility] Body weight 2022-10-03 21:00:[address] [facility] BMI 2022-10-03 21:00:00 35.58 kg/m2 [facility] Oxygen saturation in Arterial blood by Pulse oximetry 2022-10-03 21:00:00 94 /min [facility] Systolic blood pressure 2022-09-23 19:43:00 120 mm[Hg] [facility] Diastolic blood pressure 2022-09-23 19:43:00 57 mm[Hg] [facility] Heart rate 2022-09-23 19:43:00 72 /min [facility] Body temperature 2022-09-23 19:43:00 36.67 Su [facility] Body height 2022-09-23 19:43:00 162.6 cm [facility] Body weight 2022-09-23 19:43:00 91.853 kg [facility] BMI 2022-09-23 19:43:00 34.76 kg/m2 [facility] Oxygen saturation in Arterial blood by Pulse oximetry 2022-09-23 19:43:00 94 /min [facility] Systolic blood pressure 2022-09-19 17:09:00 158 mm[Hg] [facility] Diastolic blood pressure 2022-09-19 17:09:00 75 mm[Hg] [facility] Heart rate 2022-09-19 17:09:00 62 /min [facility] Body temperature 2022-09-19 17:09:00 36.22 Su [facility] Respiratory rate 2022-09-19 17:09:00 18 /min [facility] Oxygen saturation in Arterial blood by Pulse oximetry 2022-09-19 17:09:00 93 /min [facility] Body weight 2022-09-19 10:01:00 94.575 kg [facility] BMI 2022-09-19 10:01:00 35.79 kg/m2 [facility] Body height 2022-09-17 09:52:00 162.6 cm [facility] Systolic blood pressure 2022-03-22 20:25:00 147 mm[Hg] [facility] Diastolic blood pressure 2022-03-22 20:25:00 64 mm[Hg] [facility] Heart rate 2022-03-22 20:25:00 60 [facility]terial blood by Pulse oximetry 2022-03-22 20:25:00 99 /min [facility] Body temperature 2022-03-22 20:23:00 36.28 Su [facility] Respiratory rate 2022-03-22 20:23:00 17 /min [facility] Body weight 2022-03-22 20:23:00 93.033 kg [facility] BMI 2022-03-22 20:23:00 35.21 kg/m2 [facility] Systolic blood pressure 2022-01-09 18:15:00 144 mm[Hg] [facility] Diastolic blood pressure 2022-01-09 18:15:00 65 mm[Hg] [facility] Heart rate 2022-01-09 18:11:00 58 /min [facility] Respiratory rate 2022-01-09 18:11:00 18 /min [facility] Body height 2022-01-09 18:11:00 162.6 cm [facility] Body weight 2022-01-09 18:11:00 90.855 kg [facility] BMI 2022-01-09 18:11:00 34.38 kg/m2 [facility] Oxygen saturation in Arterial blood by Pulse oximetry 2022-01-09 18:11:00 96 /min [facility] Procedures Procedure Date / Time Performed Performing Clinician Source POCT GLUCOSE (AUTOMATED) 2024-07-09 01:57:00 Altaf Coley [facility] LIPASE 2024-07-09 00:18:00 Shahram Coley [facility] TROPONIN I 2024-07-09 00:18:00 Shahram Coley [facility] COMP. METABOLIC PANEL (01721) 2024-07-09 00:18:00 Shahram Coley [facility] CBC WITH DIFF 2024-07-09 00:18:00 Shahram Coley [facility] XR CHEST 2 VW 2024-07-08 23:37:25 Shahram Coley [facility] MR CERVICAL SPINE WO CONTRAST 2024-07-07 19:58:56 Alan Mcclain [facility] POCT GLUCOSE (AUTOMATED) 2024-04-28 21:08:00 Kenisha Lynn [facility] POCT GLUCOSE (AUTOMATED) 2024-04-28 16:32:00 Kenisha Lynn [facility] POCT GLUCOSE (AUTOMATED) 2024-04-28 12:40:00 Kenisha Lynn [facility] BASIC METABOLIC PANEL (NA, K, CL, CO2, GLUCOSE, BUN, CREATININE, CA) 2024-04-28 08:59:00 Lucy Lynn [facility] POCT GLUCOSE (AUTOMATED) 2024-04-28 01:47:00 Kenisha Lynn [facility] POCT GLUCOSE (AUTOMATED) 2024-04-27 21:42:00 Kenisha Lynn [facility] POCT GLUCOSE (AUTOMATED) 2024-04-27 16:24:00 Kenisha Lynn [facility] TRANSTHORACIC ECHO (TTE) COMPLETE 2024-04-27 15:14:00 Bruce Bates [facility] POCT GLUCOSE (AUTOMATED) 2024-04-27 12:40:00 Kenisha Lynn [facility] MAGNESIUM 2024-04-27 08:49:00 Mitul West [facility] BASIC METABOLIC PANEL (NA, K, CL, CO2, GLUCOSE, BUN, CREATININE, CA) 2024-04-27 08:49:00 Mitul West [facility] CBC WITH DIFF 2024-04-27 08:49:00 [facility] ([facility]OMATED) 2024-04-27 06:51:00 Kenisha Lynn [facility] POCT GLUCOSE (AUTOMATED) 2024-04-27 01:49:00 Kenisha Lynn [facility] POCT GLUCOSE (AUTOMATED) 2024-04-26 20:57:00 Kenisha Lynn [facility] POCT GLUCOSE (AUTOMATED) 2024-04-26 16:23:00 Kenisha Lynn [facility] POCT GLUCOSE (AUTOMATED) 2024-04-26 12:53:00 Kenisha Lynn [facility] MAGNESIUM 2024-04-26 09:01:00 [facility] BASIC METABOLIC PANEL (NA, K, CL, CO2, GLUCOSE, BUN, CREATININE, CA) 2024-04-26 09:01:00 Kenan [facility] CBC WITH DIFF 2024-04-26 09:01:00 Kenan [facility] CRITICAL CARE 2024-04-26 04:24:58 Dustin Maharaj [facility] DUPLEX VENOUS LEG LEFT - BY VASCULAR LAB 2024-04-26 02:35:00 Dustin Maharaj [facility] URINALYSIS 2024-04-26 02:32:00 [facility] THROAT CULTURE 2024-04-26 02:20:00 Dustin Maharaj [facility] RAPID STREP SCREEN FOR GROUP A 2024-04-26 02:20:00 Dustin Maharaj [facility] INFLUENZA A/B RSV COVID NAAT 2024-04-26 02:20:00 Dustin Maharaj [facility] LAB ONLY COVID INTERPRETATION 2024-04-26 02:20:00 Dustin Maharaj [facility] LIPASE 2024-04-26 02:16:[address] [facility] MAGNESIUM 2024-04-26 02:16:00 [facility]in [facility] TROPONIN I 2024-04-26 02:16:00 Maharaj, Dustin [facility] COMP. METABOLIC PANEL (37440) 2024-04-26 02:16:00 Dustin Maharaj [facility] CBC WITH DIFF 2024-04-26 02:16:00 Dustin Maharaj [facility] GLYCOSYLATED HEMOGLOBIN (A1C) 2024-04-26 02:16:00 Shira Salgado [facility] N-TERMINAL PRO-BNP 2024-04-26 02:16:00 Dustin Maharaj [facility] HB ECG ROUTINE & RHYTHM STRIP 2024-04-26 02:10:27 Dustin Maharaj [facility] EXTERNAL PROVIDER RECORDS 2023-10-07 06:01:00 Do ctor Unassigned, [place] [facility] AUTHORIZATION FOR RELEASE OF PHI 2023-10-03 06:01:00 Doctor Unassigned, [place] [facility] AUTHORIZATION FOR RELEASE OF PHI 2023-09-30 06:01:00 Doctor Unassigned, [place] [facility] AUTHORIZATION FOR RELEASE OF PHI 2023-09-11 06:01:00 Doctor Unassigned, [place] [facility] SLEEP STUDY DATA REPORT 2023-02-20 05:01:00 Doct or Unassigned, [place] [facility] MEDICAL RELEASE/CLEARANCE FORMS 2023-02-10 05:01:00 Doctor Unassigned, [place] [facility] XR CHEST 1 2022-11-07 23:24:39 [facility] 2022-11-07 23:24:39 [facility]EDURE 2022-11-07 21:50:49 Eduardo Esteban [facility] ELECTROPHYSIOLOGY PROCEDURE 2022-11-07 21:50:00 Eduardo Esteban [facility] CATH PROCEDURE LOG 2022-11-07 20:41:05 [facility] 2022-11-07 20:41:05 [facility] ROUTINE & RHYTHM STRIP 2022-11-07 19:06:44 Eduardo Esteban [facility] ASSIGNMENT OF BENEFITS 2022-11-07 17:53:08 Docto r Unassigned, [place] [facility] POCT GLUCOSE (AUTOMATED) 2022-09-19 17:29:00 Russell Paul [facility] POCT GLUCOSE (AUTOMATED) 2022-09-19 13:40:00 Russell Paul [facility] POCT GLUCOSE (AUTOMATED) 2022-09-19 01:48:00 Russell Paul [facility] POCT GLUCOSE (AUTOMATED) 2022-09-18 22:36:00 Russell Paul [facility] POCT GLUCOSE (AUTOMATED) 2022-09-18 17:20:00 Russell Paul [facility] POCT GLUCOSE (AUTOMATED) 2022-09-18 13:48:00 Russell Paul [facility] TROPONIN I 2022-09-18 10:37:00 Bruce Bates [facility] BASIC METABOLIC PANEL (NA, K, CL, CO2, GLUCOSE, BUN, CREATININE, CA) 2022-09-18 10:37:00 Francine Hein [facility] LIPID PANEL ([id number])(TOTAL CHOLESTEROL, TRIGLYCERIDES, HDL) 2022-09-18 10:37:00 Bruce Bates.HDrew [facility] N-TERMINAL PRO-BNP 2022-09-18 10:37:00 Bruce Bates.HDrew [facility] POCT GLUCOSE (AUTOMATED) 2022-09-18 02:57:00 Russell Paul [facility] POCT GLUCOSE (AUTOMATED) 2022-09-17 22:33:00 Russell Paul [facility] MAGNESIUM 2022-09-17 20:25:00 Russell Paul [facility] BASIC METABOLIC PANEL (NA, K, CL, CO2, GLUCOSE, BUN, CREATININE, CA) 2022-09-17 20:25:00 Russell Paul [facility] TRANSTHORACIC ECHO (TTE) COMPLETE 2022-09-17 19:43:00 Russell Paul [facility] POCT GLUCOSE (AUTOMATED) 2022-09-17 17:33:00 Russell Paul [facility] POCT GLUCOSE (AUTOMATED) 2022-09-17 13:43:00 Russell Paul [facility] TROPONIN I 2022-09-17 10:44:00 Shira Salgado [facility] CBC WITH DIFF 2022-09-17 10:44:00 Russell Paul [facility] URINALYSIS 2022-09-16 22:00:00 [facility] 1 VW 2022-09-16 21:37:25 Jacki Samuels [facility] HB ECG ROUTINE & RHYTHM STRIP 2022-09-16 21:23:34 Jacki Samuels [facility] MAGNESIUM 2022-09-16 21:19:00 [facility] TROP[facility] 2022-09-16 21:19:00 Jacki Samuels [facility] THYROID STIMULATING HORMONE 2022-09-16 21:19:00 Jacki Razo ms [facility] COMP. METABOLIC PANEL ([id number]) 2022-09-16 21:19:00 Jacki Samuels [facility] CBC WITH DIFF 2022-09-16 21:19:00 Jacki Samuels [facility] GLYCOSYLATED HEMOGLOBIN (A1C) 2022-09-16 21:19:00 Shira Salgado [facility] HB ECG ROUTINE & RHYTHM STRIP 2022-09-16 21:13:59 Jacki Samuels [facility] NOTICE OF PRIVACY PRACTICES 2022-09-16 20:53:33 Doctor Unassigned, [place] [facility] CONSENT/REFUSAL FOR DIAGNOSIS AND TREATMENT 2022-09-16 20:53:06 Doctor Unassigned, [place] [facility] MEDICAL RELEASE/CLEARANCE FORMS 2022-07-10 06:01:00 Doctor Unassigned, [place] [facility] DME/SUPPLY JUSTIFICATION 2022-06-04 05:01:00 Doc tor Unassigned, [place] [facility] DME/SUPPLY JUSTIFICATION 2019-12-19 05:01:00 Doc tor [place]assigned, [place] [facility] Encounters Start Date/Time End Date/Time Encounter Type Admission Type Attending Clinicians Care Facility Care Department Encounter ID Source 2024-07-20 10:00:00 2024-07-20 10:50:14 Outpatient ALAN MEMBRENO [facility] [id number] [facility] 2024-07-20 10:00:00 2024-07-20 10:50:14 Office Visit Alan Mccl[facility] [id number] [facility] 2024-07-08 17:12:00 2024-07-08 20:43:00 Emergency Shahram Coley [facility] [id number] [facility] 2024-07-08 17:12:00 2024-07-08 20:43:00 Emergency X SHAHRAM COLEY [facility]IC[facility] [id number] [facility] 2024-07-07 12:30:03 2024-07-07 23:59:00 Outpatient ALAN [facility] [facility] [id number] [facility] 2024-07-07 12:30:03 2024-07-07 23:59:00 Hospital Encounter Alan Mcclain [facility] 1.2.840.114 350.1.13.10 4.2.7.2.686 [id number] [facility] 2024-06-03 13:05:59 2024-06-03 23:59:00 Outpatient LILI BROWNING [facility] [id number] [facility] 2024-06-03 13:05:59 2024-06-03 23:59:00 Hospital Encounter Lili Garcias [facility] MEDICAL OFF[facility] BUILDING 1..840.114 350.1.13.10 4.2.7.2.686 [id number] [facility] 2024-05-24 11:40:00 2024-05-24 11:40:00 Outpatient ALAN MEMBRENO HOWARD [facility] [id number] [facility] 2024-05-06 20:00:00 2024-05-06 20:00:00 Outpatient LOTTIE PUENTE STRAMIVicky [facility] [id number] [facility] 2024-04-29 00:00:00 2024-04-29 15:55:43 Transition of Care Smith Niya MANDUJANO 1..840.114 350.1.13.10 4.2.7.2.686 [id number] [facility] 2024-04-25 20:44:00 2024-04-28 18:24:00 Inpatient Mia LUCY LYNN [facility] [id number] [facility] 2024-04-25 20:44:00 2024-04-28 18:24:00 Hospital Encounter Dustin Maharaj David Ed[facility] 1..840.114 350.1.13.10 4.2.7.2.686 [id number] [facility] 2024-04-23 14:20:00 2024-04-23 15:28:41 Outpatient ALAN MEMBRENO HOWARD [facility] [id number] [facility] 2024-04-23 14:20:00 2024-04-23 15:28:41 Office Visit Alan Mcclain [facility] 1..840.114 350.1.13.10 4.2.7.2.686 [id number] [facility] 2024-04-12 20:00:00 2024-04-12 22:30:00 Director Of Assessing Visit 1, [facility] Sleep Lab Bed Lottie Truong T 1, [facility] Bed [facility] 1.114 350.1.13.10 4.2.7.2.686 [id number] [facility] 2024-04-12 20:00:00 2024-04-12 20:00:00 Outpatient R LOTTIE TRUONG STRAHIL [facility] [id number] [facility] 2024-04-09 00:00:00 2024-04-09 10:24:39 Telephone [facility] 1..114 350.1.13.10 4.2.7.2.686 [id number] [facility] 2015-11-25 00:00:00 2024-02-17 02:33:24 Mobile Device Encounter Get [place] [facility] 1.114 350.1.13.10 4.2.7.2.686 [id number] [facility] 2023-12-29 00:00:00 2023-12-29 23:59:00 Outpatient R ALEXEY CLARKE HAIDER [facility] [id number] [facility] 2023-12-29 00:00:00 2023-12-29 23:59:00 Hospital Encounter Alexey Clarke [facility] 1.114 350.1.13.10 4.2.7.2.686 [id number] [facility] 2023-10-29 00:00:00 2023-10-29 00:00:00 Patient Secure Msg Doctor Unassigned, [place] [facility] MEDICAL OFFICE BUILDING 1.84.114 350.1.13.10 4.2.7.2.686 [id number] [facility] 2023-10-07 00:00:00 2023-10-07 00:00:00 Orders Only Doctor Unassigned, [place] [facility] 1.2.840.114 350.1.13.10 4.2.7.2.686 [id number] [facility] 2023-10-03 00:00:00 2023-10-03 00:00:00 Orders Only Doctor Unassigned, [place] [facility] 1.2.840.114 350.1.13.10 4.2.7.2.686 [id number] [facility] 2023-09-30 00:00:00 2023-09-30 00:00:00 Orders Only Doctor Unassigned, [place] [facility] 1.2.840.114 350.1.13.10 4.2.7.2.686 [id number] [facility] 2023-09-12 00:00:00 2023-09-12 00:00:00 Telephone Bruce [facility] 1.2.840.114 350.1.13.10 4.2.7.2.686 [id number] [facility] 2023-09-11 00:00:00 2023-09-11 00:00:00 Orders Only Doctor Unassigned, [place] [facility] 1.2.840.114 350.1.13.10 4.2.7.2.686 [id number] [facility] 2023-07-03 11:30:00 2023-07-03 11:30:00 Outpatient RICARDO DOMINGUEZ MUHIE [facility] [id number] [facility] 2023-06-30 00:00:00 2023-06-30 23:59:00 Outpatient JESSIE KAPOORYFN JESSIE Madhu [facility] [id number] [facility] 2023-06-30 00:00:00 2023-06-30 23:59:00 Hospital Encounter Reji Jessie madhu [facility] 1..840.114 350.1.13.10 4.2.7.2.686 [id number] [facility] 2023-06-04 11:00:00 2023-06-04 11:00:00 Outpatient R LOTTIE TRUONG, STRAHIL [facility] [id number] [facility] 2023-05-21 20:00:00 2023-05-21 20:00:00 Outpatient R LOTTIE TRUONG, STRAMIL [facility] [id number] [facility] 2023-04-23 14:30:00 2023-04-23 14:30:00 Outpatient R LOTTIE TRUONG, STRAHIL [facility] [id number] [facility] 2023-04-21 14:30:00 2023-04-21 14:30:00 Outpatient BRUCE MERCADO [facility] [id number] [facility] 2023-04-17 00:00:00 2023-04-17 00:00:00 Bruce Rondon [facility] 1..840.114 350.1.13.10 4.2.7.2.686 [id number] [facility] 2023-03-21 11:00:00 2023-03-21 11:00:00 Outpatient EDUARDO BERRIOS [facility] [id number] [facility] 2023-02-20 20:00:00 2023-02-20 22:30:00 Director Of Assessing Visit 1, [facility] Sleep Lab Bed Lottie Truong [facility] 1..840.114 350.1.13.10 4.2.7.2.686 [id number] [facility] 2023-02-20 20:00:00 2023-02-20 20:00:00 Outpatient LOTTIE PUENTE STRAHIL [facility] [id number] [facility] 2023-02-20 00:00:00 2023-02-20 00:00:00 Orders Only Doctor Unassigned, [place] [facility] 1.2840.114 350.1.13.10 4.2.7.2.686 [id number] [facility] 2023-02-18 00:00:00 2023-02-18 00:00:00 Telephone Bruce Bates [facility] 1.2840.114 350.1.13.10 4.2.7.2.686 [id number] [facility] 2023-02-10 00:00:00 2023-02-10 00:00:00 Telephone Bruce Bates [facility] 1.2840.114 350.1.13.10 4.2.7.2.686 [id number] [facility] 2023-02-10 00:00:00 2023-02-10 00:00:00 Orders Only Doctor Unassigned, [place] [facility] 1.2840.114 350.1.13.10 4.2.7.2.686 [id number] [facility] 2023-02-06 00:00:00 2023-02-06 00:00:00 Telephone Bruce Bates [facility] 1.2.840.114 350.1.13.10 4.2.7.2.686 [id number] [facility] 2023-01-30 00:00:00 2023-01-30 00:00:00 Refill Alejandrina Bateskarina Pearl. [facility] 1.2.840.114 350.1.13.10 4.2.7.2.686 [id number] [facility] 2023-01-09 00:00:00 2023-01-09 00:00:00 Refill Alejandrina Bateskarina Keyla [facility] 1.2.840.114 350.1.13.10 4.2.7.2.686 [id number] [facility] 2022-12-30 14:00:00 2022-12-30 14:00:00 Outpatient R BRUCE BATES [facility] [id number] [facility] 2022-12-26 13:32:41 2022-12-26 23:59:00 Outpatient R EDUARDO ESTEBAN [facility] [id number] [facility] 2022-12-23 14:00:00 2022-12-23 14:00:00 Outpatient R BRUCE BATES [facility] [id number] [facility] 2022-12-18 15:30:00 2022-12-18 16:00:00 Office Visit Lottie Truong [facility] 1.2.840.114 350.1.13.10 4.2.7.2.686 [id number] [facility] 2022-12-18 15:30:00 2022-12-18 15:30:00 Outpatient R LOTTIE TRUONG STRAHIL [facility] [id number] [facility] 2022-11-28 14:19:43 2022-11-28 23:59:00 Outpatient R KIRILL ALVARADO [facility] [id number] [facility] 2022-11-07 11:53:00 2022-11-08 19:04:00 Outpatient R ORLANDO EDWARD SAMEER [facility] [id number] [facility] 2022-11-07 11:53:00 2022-11-08 19:04:00 Hospital Encounter Eduardo Esteban Orlando Edward Faiza [facility] 1.2.840.114 350.1.13.10 4.2.7.2.686 [id number] [facility] 2022-11-07 13:45:00 2022-11-07 15:15:00 [facility] 1.2.840.114 350.1.13.10 4.2.7.2.686 [id number] [facility] 2022-11-07 00:00:00 2022-11-07 00:00:00 Orders Only Doctor Unassigned, [place] [facility] 1.2.840.114 350.1.13.10 4.2.7.2.686 [id number] [facility] 2022-11-06 14:30:00 2022-11-06 14:30:00 Outpatient R LOTTIE TRUONG STRAHIL [facility] [id number] [facility] 2022-11-05 12:45:00 2022-11-05 13:00:00 Director Of Assessing Visit Pob, Adc Lab Main [facility] 1.2.840.114 350.1.13.10 4.2.7.2.686 [id number] [facility] 2022-11-05 12:45:00 2022-11-05 12:45:00 Outpatient R [facility] [id number] [facility] 2022-10-24 00:00:00 2022-10-24 00:00:00 Telephone Carlito [facility] MEDICAL OFFICE BUILDING 1.2.840.114 350.1.13.10 4.2.7.2.686 [id number] [facility] 2022-10-03 15:00:00 2022-10-03 15:52:05 Outpatient R [facility]ITO [facility] [id number] [facility] 2022-10-03 15:00:00 2022-10-03 15:52:05 Office Visit Carlito [facility] BUILDING 1.2.840.114 350.1.13.10 4.2.7.2.686 [id number] [facility] 2022-10-01 00:00:00 2022-10-01 00:00:00 Telephone Brian George [facility] 1.2.840.114 350.1.13.10 4.2.7.2.686 [id number] [facility] 2022-10-01 00:00:00 2022-10-01 00:00:00 Telephone Carlito [facility] BUILDING 1.2.840.114 350.1.13.10 4.2.7.2.686 [id number] [facility] 2022-10-01 00:00:00 2022-10-01 00:00:00 Telephone Bruce Bates [facility] BUILDING 1.2.840.114 350.1.13.10 4.2.7.2.686 [id number] [facility] 2022-09-29 00:00:00 2022-09-29 00:00:00 Telephone Cruz [facility] 1.2.840.114 350.1.13.10 4.2.7.2.686 [id number] [facility] 2022-09-29 00:00:00 2022-09-29 00:00:00 Telephone Bruce Bates [facility] 1.2.840.114 350.1.13.10 4.2.7.2.686 [id number] [facility] 2022-09-23 13:35:42 2022-09-23 23:59:00 Outpatient R BRUCE BATES [facility] [id number] [facility] 2022-09-23 13:30:00 2022-09-23 14:15:59 Office Visit Bruce Bates [facility] 1.2.840.114 350.1.13.10 4.2.7.2.686 [id number] [facility] 2022-09-20 00:00:00 2022-09-20 00:00:00 Transition of Care Niranjan [facility] 1.2.840.114 350.1.13.10 4.2.7.2.686 [id number] [facility] 2022-09-16 15:07:00 2022-09-19 15:00:00 Inpatient X LUCY LYNN [facility] [id number] [facility] 2022-09-16 15:07:00 2022-09-19 15:00:00 Hospital Encounter Jacki Samuels Yaman Morris, David [facility] 1.2.840.114 350.1.13.10 4.2.7.2.686 [id number] [facility] 2022-08-07 14:30:00 2022-08-07 14:30:00 Outpatient R BRUCE BATES [facility] [id number] [facility] 2022-07-12 13:00:00 2022-07-12 13:00:00 Outpatient R BRUCE BATES [facility] [id number] [facility] 2022-07-10 00:00:00 2022-07-10 00:00:00 Orders Only Doctor Unassigned, [place] [facility] 1.2.840.114 350.1.13.10 4.2.7.2.686 [id number] [facility] 2022-07-09 00:00:00 2022-07-09 00:00:00 Telephone Bruce Bates [facility] 1.2.840.114 350.1.13.10 4.2.7.2.686 [id number] [facility] 2022-07-08 00:00:00 2022-07-08 00:00:00 Refill Bruce Bates [facility] 1.2840.114 350.1.13.10 4.2.7.2.686 [id number] [facility] 2022-06-12 00:00:00 2022-06-12 00:00:[address] [facility] 1.2840.114 350.1.13.10 4.2.7.2.686 [id number] [facility] 2022-06-04 00:00:00 2022-06-04 00:00:00 Telephone Lottie Truong [facility] 1.2840.114 350.1.13.10 4.2.7.2.686 [id number] [facility] 2022-06-04 00:00:00 2022-06-04 00:00:00 Orders Only Doctor Unassigned, [place] [facility] 1.2.840.114 350.1.13.10 4.2.7.2.686 [id number] [facility] 2022-03-22 15:20:00 2022-03-22 15:50:19 Outpatient R EDUARDO ESTEBAN [facility] [id number] [facility] 2022-03-22 15:20:00 2022-03-22 15:50:19 Office Visit Eduardo Esteban [facility] BUILDING 1.2.840.114 350.1.13.10 4.2.7.2.686 [id number] [facility] 2022-03-22 15:20:00 2022-03-22 15:50:19 Outpatient R EDUARDO ESTEBAN [facility] [id number] [facility] 2022-03-22 10:20:00 2022-03-22 10:20:00 Outpatient R EDUARDO ESTEBAN [facility] [id number] [facility] 2022-03-18 00:00:00 2022-03-18 00:00:00 Telephone [facility] 1.2.840.114 350.1.13.10 4.2.7.2.686 [id number] [facility] 2022-03-15 08:20:00 2022-03-15 08:20:00 Outpatient R EDUARDO ESTEBAN [facility] [id number] [facility] 2022-01-24 00:00:00 2022-01-24 00:00:00 Telephone Carlito [facility] BUILDING 1.2.840.114 350.1.13.10 4.2.7.2.686 [id number] [facility] 2022-01-10 00:00:00 2022-01-10 00:00:00 Telephone Bruce Bates [facility] BUILDING 1.2.840.114 350.1.13.10 4.2.7.2.686 [id number] [facility] 2022-01-09 13:45:00 2022-01-09 14:00:00 Director Of Assessing Visit 2, Adc Lab Bruce Bates [facility] 1..840.114 350.1.13.10 4.2.7.2.686 [id number] [facility] 2022-01-09 13:00:00 2022-01-09 13:31:34 Outpatient R PAULO [facility] [id number] [facility] 2022-01-09 13:00:00 2022-01-09 13:31:34 Outpatient R BRUCE BATES [facility] [id number] [facility] 2022-01-09 13:00:00 2022-01-09 13:31:34 Office Visit Bruce Bates [facility] 1.840.114 350.1.13.10 4.2.7.2.686 [id number] [facility] 2022-01-04 10:40:00 2022-01-04 10:40:00 Outpatient EDUARDO BERRIOS [facility] [id number] [facility] 2022-01-04 10:40:00 2022-01-04 10:40:00 Outpatient R CARLITO EDUARDO [facility] [id number] [facility] 2021-11-30 00:00:00 2021-11-30 00:00:00 Orders Only Doctor Unassigned, [place] [facility] 1.840.114 350.1.13.10 4.2.7.2.686 [id number] [facility] 2021-11-21 14:00:00 2021-11-21 14:20:00 Office Visit Lottie Truong [facility] 1..840.114 350.1.13.10 4.2.7.2.686 [id number] [facility] 2021-11-21 14:00:00 2021-11-21 14:00:00 Outpatient R MARTIN TRUONGL HARMEET, STRAHIL [facility] [id number] [facility] 2021-11-21 00:00:00 2021-11-21 00:00:00 Orders Only Doctor Unassigned, [place] [facility] 1..840.114 350.1.13.10 4.2.7.2.686 [id number] [facility] 2021-11-14 11:20:00 2021-11-14 11:40:00 Office Visit Lottie Truong [facility] 1..840.114 350.1.13.10 4.2.7.2.686 [id number] [facility] 2021-11-14 11:20:00 2021-11-14 11:20:00 Outpatient R HARMEET, STRAHIL ATANASDARA, STRAHIL [facility] [id number] [facility] 2021-11-14 11:20:00 2021-11-14 11:20:00 Outpatient R HARMEET, ANGELICAHIL HARMEET, STRAHIL [facility] [id number] [facility] 2021-11-08 09:30:00 2021-11-08 10:03:08 Outpatient R BRUCE BATES [facility] [id number] [facility] 2021-11-08 09:30:00 2021-11-08 10:03:08 Office Visit Bruce Bates [facility] 1..840.114 350.1.13.10 4.2.7.2.686 [id number] [facility] 2021-11-08 09:30:00 2021-11-08 10:03:08 Outpatient R BRUCE BATES [facility] [id number] [facility] 2021-11-08 09:30:00 2021-11-08 09:30:00 Outpatient R BRUCE BATES [facility] [id number] [facility] 2021-11-07 08:37:56 2021-11-07 23:59:00 Outpatient R CHATO KNOX [facility] [id number] [facility] 2021-11-07 08:37:56 2021-11-07 23:59:00 Hospital Encounter hCato Knox [facility] 1.2.840.114 350.1.13.10 4.2.7.2.686 [id number] [facility] 2021-11-07 08:37:56 2021-11-07 23:59:00 Outpatient R CHATO KNOX [facility] [id number] [facility] 2021-11-01 00:00:00 2021-11-01 00:00:00 Patient Secure Msg Doctor Unassigned, [place] [facility] 1.2.840.114 350.1.13.10 4.2.7.2.686 [id number] [facility] 2021-10-29 00:00:00 2021-10-29 00:00:00 Orders Only Doctor Unassigned, [place] [facility] 1.2.840.114 350.1.13.10 4.2.7.2.686 [id number] [facility] 2021-10-25 10:32:00 2021-10-26 15:28:00 Outpatient R IGNACIA CRZU [facility] [id number] [facility] 2021-10-25 07:00:00 2021-10-25 07:00:00 Outpatient R EDUARDO ESTEBAN [facility] [id number] [facility] 2021-10-23 19:30:00 2021-10-23 22:00:00 Director Of Assessing Visit 1, [facility] Sleep Lab Bed Lottie Truong [facility] 1.2.840.114 350.1.13.10 4.2.7.2.686 [id number] [facility] 2021-10-23 19:30:00 2021-10-23 19:30:00 Outpatient R ANGELICA TRUONGKRISTY ANGELICA TRUONGMIVicky [facility] [id number] [facility] 2021-10-23 13:15:00 2021-10-23 13:30:00 Laboratory Only Only, [facility] Test Eduardo Esteban [facility] 1.2.840.114 350.1.13.10 4.2.7.2.686 [id number] [facility] 2021-10-23 00:00:00 2021-10-23 00:00:00 Orders Only Angelica Truongkristy [facility] BUILDING 1.2840.114 350.1.13.10 4.2.7.2.686 [id number] [facility] 2021-10-22 10:08:26 2021-10-22 23:59:00 Outpatient R CARLITO [facility] [id number] [facility] 2021-10-22 10:08:26 2021-10-22 23:59:00 Hospital Encounter Len Estebanf [facility] 1.2840.114 350.1.13.10 4.2.7.2.686 [id number] [facility] 2021-10-17 00:00:00 2021-10-17 00:00:00 Telephone Alan Harding BUILDING 1.2840.114 350.1.13.10 4.2.7.2.686 [id number] [facility] 2021-09-29 19:30:00 2021-09-29 19:30:00 Outpatient R LOTTIE TRUONG GIUSEPPEALANISLOTTIE RAMSEY [facility] [id number] [facility] 2021-09-27 10:00:00 2021-09-27 10:00:00 Outpatient R [facility] [id number] [facility] 2021-09-25 09:30:00 2021-09-25 23:59:00 Hospital Encounter [facility] [id number] 350.1.13.10 4.2.7.2.686 [id number] [facility] 2021-09-25 09:00:00 2021-09-25 09:00:00 Hospital Encounter [facility] [id number] 350.1.13.10 4.2.7.2.686 [id number] [facility] 2021-09-25 00:00:00 2021-09-25 00:00:00 Outpatient R [facility] [id number] [facility] 2021-09-24 00:00:00 2021-09-24 00:00:00 Telephone Neida Clint [facility] 1.2.840.114 350.1.13.10 4.2.7.2.686 [id number] [facility] 2021-09-21 00:00:00 2021-09-21 00:00:00 Telephone [facility] 1.2.840.114 350.1.13.10 4.2.7.2.686 [id number] [facility] 2021-09-19 00:00:00 2021-09-19 00:00:00 Telephone [facility] 1.2.840.114 350.1.13.10 4.2.7.2.686 [id number] [facility] 2021-09-19 00:00:00 2021-09-19 00:00:00 Telephone [facility] 1.2.840.114 350.1.13.10 4.2.7.2.686 [id number] [facility] 2021-09-18 00:00:00 2021-09-18 00:00:00 Telephone [facility] 1.2.840.114 350.1.13.10 4.2.7.2.686 [id number] [facility] 2021-09-06 08:00:00 2021-09-06 08:00:00 Outpatient R BISMARKLEN SANDERSF [facility] [id number] [facility] 2021-08-22 10:40:00 2021-08-22 11:03:10 Outpatient R LOTTIE TRUONG STRAHIL [facility] [id number] [facility] 2021-08-22 10:40:00 2021-08-22 11:03:10 Office Visit Lottie Truong [facility] 1.2.840.114 350.1.13.10 4.2.7.2.686 [id number] [facility] 2021-08-22 00:00:00 2021-08-22 00:00:00 Telephone Carlito [facility] 1.2.840.114 350.1.13.10 4.2.7.2.686 [id number] [facility] 2021-08-15 15:20:00 2021-08-15 15:40:00 Office Visit GiuseppealanisLottie ramsey [facility] 1.2.840.114 350.1.13.10 4.2.7.2.686 [id number] [facility] 2021-08-15 15:20:00 2021-08-15 15:20:00 Outpatient R LOTTIE TRUONG GIUSEPPEHITESH LOTTIE [facility] [id number] [facility] 2021-08-07 00:00:00 2021-08-07 00:00:00 [facility] 1.2.840.114 350.1.13.10 4.2.7.2.686 [id number] [facility] 2021-07-31 08:47:17 2021-07-31 09:53:27 Office Visit [facility] 1.2.840.114 350.1.13.10 4.2.7.2.686 [id number] [facility] 2021-07-31 08:40:00 2021-07-31 09:53:27 Outpatient R [facility] [id number] [facility] 2021-07-31 08:40:00 2021-07-31 09:53:27 Outpatient R [facility] [id number] [facility] 2021-07-31 08:40:00 2021-07-31 09:53:27 Outpatient R [facility] [id number] [facility] 2021-07-30 09:03:56 2021-07-30 09:49:07 Office Visit Bruce Bates [facility] 1.2.840.114 350.1.13.10 4.2.7.2.686 [id number] [facility] 2021-07-30 09:00:00 2021-07-30 09:49:07 Outpatient R BRUCE BATES [facility] [id number] [facility] 2021-07-30 09:00:00 2021-07-30 09:00:00 Outpatient R BRUCE BATES [facility] [id number] [facility] 2021-07-30 00:00:00 2021-07-30 00:00:00 Transition of Care Niya Smith 1.840.114 350.1.13.10 4.2.7.2.686 [id number] [facility] 2021-07-21 15:01:00 2021-07-26 17:17:00 Inpatient X ROGELIO RUSSELL [facility] [id number] [facility] 2021-07-21 15:01:00 2021-07-26 17:17:00 Hospital Encounter Jacki Samuels [facility] 1..114 350.1.13.10 4.2.7.2.686 [id number] [facility] 2021-07-18 09:30:00 2021-07-18 10:51:09 Outpatient ALBINA SEWELL [facility] [id number] [facility] 2021-07-18 09:30:00 2021-07-18 10:51:09 Outpatient ALBINA SEWELL [facility] [id number] [facility] 2021-07-18 09:25:01 2021-07-18 10:51:09 Office Visit Alan Harding [facility] ..114 350.1.13.10 4.2.7.2.686 [id number] [facility] 2021-07-10 00:00:00 2021-07-10 00:00:00 Telephone Bruce Bates [facility] 1.84.114 350.1.13.10 4.2.7.2.686 [id number] [facility] 2021-07-02 00:00:00 2021-07-02 00:00:00 Telephone Bruce Bates [facility] 1.2.840.114 350.1.13.10 4.2.7.2.686 [id number] [facility] 2021-06-21 08:14:54 2021-06-21 23:59:00 Hospital Encounter Bruce Bates [facility] 1.2.840.114 350.1.13.10 4.2.7.2.686 [id number] [facility] 2021-06-21 08:14:18 2021-06-21 23:59:00 Hospital Encounter Bruce Bates [facility] 1.2.840.114 350.1.13.10 4.2.7.2.686 [id number] [facility] 2021-06-21 08:14:06 2021-06-21 23:59:00 Hospital Encounter Bruce Bates [facility] 1.2.840.114 350.1.13.10 4.2.7.2.686 [id number] [facility] 2021-06-21 08:13:21 2021-06-21 08:13:21 Hospital Encounter Bruce Bates [facility] 1.2.840.114 350.1.13.10 4.2.7.2.686 [id number] [facility] 2021-06-21 08:13:10 2021-06-21 08:13:10 Hospital Encounter Bruce Bates [facility] 1.2.840.114 350.1.13.10 4.2.7.2.686 [id number] [facility] 2021-06-21 00:00:00 2021-06-21 00:00:00 Outpatient BRUCE BATES [facility] [id number] [facility] 2021-06-20 00:00:00 2021-06-20 00:00:00 Telephone Bruce Bates [facility] 1.2.840.114 350.1.13.10 4.2.7.2.686 [id number] [id number] [facility] 2021-06-20 00:00:00 2021-06-20 00:00:00 Telephone Kellie Barfield [facility] 1.2.840.114 350.1.13.10 4.2.7.2.686 [id number] [facility] 2021-06-19 00:00:00 2021-06-19 00:00:00 Orders Only Doctor Unassigned, [place] [facility] 1.2840.114 350.1.13.10 4.2.7.2.686 [id number] [facility] 2021-06-18 12:54:16 2021-06-18 23:59:00 Hospital Encounter Bruce Bates [facility] 1.2.840.114 350.1.13.10 4.2.7.2.686 [id number] [facility] 2021-06-18 13:00:00 2021-06-18 13:00:00 Outpatient R BRUCE BATES [facility] [id number] [facility] 2021-06-13 00:00:00 2021-06-13 00:00:00 Orders Only Doctor Unassigned, [place] [facility] 1.2840.114 350.1.13.10 4.2.7.2.686 [id number] [id number] [facility] 2021-06-12 16:07:13 2021-06-12 23:59:00 Hospital Encounter Bruce Bates [facility] 1.2.840.114 350.1.13.10 4.2.7.2.686 [id number] [facility] 2021-06-12 10:15:52 2021-06-12 11:10:12 Office Visit Bruce Bates [facility] 1.2.840.114 350.1.13.10 4.2.7.2.686 [id number] [facility] 2021-06-12 10:00:00 2021-06-12 10:00:00 Outpatient R BRUCE BATES [facility] [id number] [facility] 2021-06-12 00:00:00 2021-06-12 00:00:00 Orders Only Doctor Unassigned, [place] [facility] 1.2.840.114 350.1.13.10 4.2.7.2.686 [id number] [facility] 2021-01-04 00:00:00 2021-01-04 00:00:00 Refill Bruce Bates [facility] 1.2.840.114 350.1.13.10 4.2.7.2.686 [id number] [facility] 2020-12-28 00:00:00 2020-12-28 00:00:00 Refill Bruce Bates [facility] 1.2.840.114 350.1.13.10 4.2.7.2.686 [id number] [facility] 2020-11-04 00:00:00 2020-11-04 00:00:00 Orders Only Doctor Unassigned, [place] [facility] 1.2.840.114 350.1.13.10 4.2.7.2.686 [id number] [facility] 2020-09-15 00:00:00 2020-09-15 00:00:00 Telephone Bruce Bates [facility] 1.2.840.114 350.1.13.10 4.2.7.2.686 [id number] [facility] 2020-06-12 14:47:16 2020-06-27 13:33:27 Office Visit Bruce Bates [facility] 1.2840.114 350.1.13.10 4.2.7.2.686 [id number] 2020-06-12 14:47:16 2020-06-27 13:33:27 Office Visit Bruce Bates [facility] 1.2.840.114 350.1.13.10 4.2.7.2.686 [id number] [facility] 2020-06-27 00:00:00 2020-06-27 00:00:00 Orders Only Doctor Unassigned, [place] [facility] 1.2840.114 350.1.13.10 4.2.7.2.686 [id number] [facility] 2020-06-27 00:00:00 2020-06-27 00:00:00 Telephone Bruce Bates [facility] 1.2.840.114 350.1.13.10 4.2.7.2.686 [id number] [facility] 2020-06-27 00:00:00 2020-06-27 00:00:00 Telephone Bruce Bates [facility] 1.2.840.114 350.1.13.10 4.2.7.2.686 [id number] 2020-06-21 16:00:00 2020-06-21 16:00:00 Outpatient R [facility] [id number] [facility] 2020-06-16 16:00:00 2020-06-16 16:00:00 Outpatient R [facility] [id number] [facility] 2020-06-12 14:30:00 2020-06-12 14:30:00 Outpatient R BRUCE BATES [facility] [id number] [facility] 2020-06-12 00:00:00 2020-06-12 00:00:00 Orders Only Doctor Unassigned, [place] [facility] 1..840.114 350.1.13.10 4.2.7.2.686 [id number] [facility] 2020-05-26 09:37:13 2020-05-26 11:46:55 Office Visit Alan Mcclain [facility] 1..840.114 350.1.13.10 4.2.7.2.686 [id number] [facility] 2020-05-26 09:20:00 2020-05-26 09:20:00 Outpatient R ALAN MCCLAIN HOWARD [facility] [id number] [facility] 2020-05-22 09:00:00 2020-05-22 09:00:00 Outpatient R BRUCE BATES [facility] [id number] [facility] 2020-05-12 00:00:00 2020-05-12 00:00:00 Telephone Alan Mcclain [facility] 1..840.114 350.1.13.10 4.2.7.2.686 [id number] [facility] 2020-04-28 15:30:00 2020-04-28 15:30:00 Outpatient BRUCE MERCADO [facility] [id number] [facility] 2020-04-18 10:49:27 2020-04-18 23:59:00 Hospital Alan King [facility] 1..840.114 350.1.13.10 4.2.7.2.686 [id number] [facility] 2020-04-18 00:00:00 2020-04-18 00:00:00 Outpatient ALAN MEMBRENOOCHALAN Solitario [facility] [id number] [facility] 2020-04-11 13:24:22 2020-04-11 14:07:49 Office Visit Alan Mcclain [facility] 1..840.114 350.1.13.10 4.2.7.2.686 [id number] [facility] 2020-04-11 13:40:00 2020-04-11 13:40:00 Outpatient ALAN MEMBRENO HOWARD [facility] [id number] [facility] 2020-04-11 00:00:00 2020-04-11 00:00:00 Orders Only Doctor Unassigned, [place] [address].2840.114 350.1.13.10 4.2.7.2.686 [id number] [facility] 2020-03-09 00:00:00 2020-03-09 00:00:00 Orders Only Doctor Unassigned, [place] [facility] 1.2840.114 350.1.13.10 4.2.7.2.686 [id number] [facility] 2020-01-05 11:30:00 2020-01-05 11:30:00 Outpatient LOTTIE PUENTE STRAHIL [facility] [id number] [facility] 2020-01-05 09:17:42 2020-01-05 09:47:42 Telemedici ne Visit Lottie Truong [facility] 1.2.840.114 350.1.13.10 4.2.7.2.686 [id number] [facility] 2019-12-19 00:00:00 2019-12-19 00:00:00 Orders Only Doctor Unassigned, [place] [facility] 1.2.840.114 350.1.13.10 4.2.7.2.686 [id number] [facility] 2019-04-22 15:39:26 2019-04-22 16:24:54 Office Visit Bruce Bates [facility] 1.2.840.114 350.1.13.10 4.2.7.2.686 [id number] [facility] 2019-04-22 00:00:00 2019-04-22 00:00:00 Orders Only Doctor Unassigned, [place] [facility] 1.2.840.114 350.1.13.10 4.2.7.2.686 [id number] [facility] 2019-04-07 10:03:10 2019-04-07 10:33:10 Office Visit Lottie Truong [facility] 1.2.840.114 350.1.13.10 4.2.7.2.686 [id number] [facility] 2019-04-07 00:00:00 2019-04-07 00:00:00 Orders Only Doctor Unassigned, [place] [facility] 1.2.840.114 350.1.13.10 4.2.7.2.686 [id number] [facility] Results Test Description Test Time Test Comments Results Result Co mments Source [id number] 01:02:43* Test Item Value Reference Range Interpretation Comme nts TROPONIN I (test code = 1811780769) <=0.034 ZAK (test code = ZAK) Reference (Normal) [...] of biotin. Lab Interpretation (test code = 77483-8) Normal [facility]. METABOLIC PANEL (94650)2024-07-09 00:52:37* Test Item Value Reference Range Interpretation Comme nts NA (test code = 2058256613) 134 mmol/L 135-145 L K (test code = 0364368047) 4.0 mmol/L 3.5-5.0 CL (test code = 8368083639) 101 mmol/L 98-108 CO2 TOTAL (test code = 0904288796) 25 mmol/L 23-31 AGAP (test code = 8161027471) 8 2-16 BUN (test code = 6333590037) 22 mg/dL 7-23 GLUCOSE (test code = 9907972935) 278 mg/dL 70-110 H CREATININE (test code = 2160-0) 0.90 mg/dL 0.50-1.04 TOTAL BILI (test code = 9882037427) 1.0 mg/dL 0.1-1.1 CALCIUM (test code = 9022877282) 9.5 mg/dL 8.6-10.6 T PROTEIN (test code = 8324181405) 7.1 g/dL 6.3-8.2 ALBUMIN (test code = 8807438303) 4.2 g/dL 3.5-5.0 ALK PHOS (test code = 7921400091) 74 U/L 34-122 ALTv (test code = 1742-6) 22 U/L 5-35 AST(SGOT) (test code = 5918376362) 25 U/L 13-40 eGFR (test code = 17757-3) 69.8 mL/min/1.73m2 CKD-EPI eGFR (2020). Assuming creatinine has been stable day-to-day for at least three months, the eGFR indicates Category G2 (60 - 89 mL/min/1.73 m2) Lab Interpretation (test code = 83627-3) [facility] 00:52:01* Test Item Value Reference Range Interpretation Comme nts LIPASE (test code = 9834688044) 107 U/L 0-220 Lab Interpretation (test cod e = 20701-1) [facility] 2 [id number] 00:42:21CHEST X-RAY PA & LATERAL 07/08/2024 6:41 PM Ordering physician: SHAHRAM COLEY CLINICAL INFORMATION: ?Hypertension and shortness of breath TECHNIQUE: ?PA AND LATERAL VIEWS OF THE CHEST COMPARISON: Chest x-ray dated 11/07/2022 FINDINGS: Right-sided Mediport extends into the superior vena cava. Left-sidedcardiac pacemaker in place with electrodes overlying the right atrium andright ventricle. Thelung hedrick are clear. ?No pleural effusions. ?Nopneumothorax. ?Calcification to the thoracic aorta. The cardiomediastinalsilhouette is within normal limits. ?No acute bony abnormalities of thevisualized skeleton. Degenerative change of the thoracic spine.[facility] WITH [id number] 00:33:38* Test Item Value Reference Range Interpretation Comme nts WBC (test code = 6690-2) 9.49 4.30-11.10 RBC (test code = 789-8) 4.66 3.93-5.25 HGB (test code = 718-7) 14.1 g/dL 11.6-15.0 HCT (test code = 4544-3) 42.4 % 35.7-45.2 MCV (test code = 787-2) 91.0 fL 80.6-95.5 MCH (test code = 785-6) 30.3 pg 25.9-32.8 MCHC (test code = 786-4) 33.3 g/dL 31.6-35.1 RDW-SD (test code = 65659-5) 43.9 fL 39.0-49.9 RDW-CV (test code = 788-0) 13.2 % 12.0-15.5 PLT (test code = 777-3) 249 166-358 MPV (test code = 81009-6) 9.5 fL 9.5-12.9 NRBC/100 WBC (test code = 1666807191) 0.0 0.0-10.0 NRBC x10^3 (test code = 3775886054) See_Comment [Automated me ssage] The system which generated this result transmitted reference range: 10*3/?L. The reference range was not used to interpret this result as normal/abnormal. GRAN MAT (NEUT) % (test code = 770-8) 64.9 % IMM GRAN % (test code = 2614858514) 0.30 % LYMPH % (test code = 736-9) 25.1 % MONO % (test code = 5905-5) 7.8 % EOS % (test code = 713-8) 1.2 % BASO % (test code = 706-2) 0.7 % GRAN MAT x10^3(ANC) (test code = 2273498539) 6.16 10*3/uL 1.88-7.09 IMM GRAN x10^3 (test code = 1129890739) 0.03 10*3/uL 0.00-0.06 LYMPH x10^3 (test code = 731-0) 2.38 10*3/uL 1.32-3.29 MONO x10^3 (test code = 742-7) 0.74 10*3/uL 0.33-0.92 EOS x10^3 (test code = 711-2) 0.11 10*3/uL 0.03-0.39 BASO x10^3 (test code = 704-7) 0.07 10*3/uL 0.01-0.07 [facility] [id number] 20:42:35EXAM: MR CERVICAL SPINE WO CONTRAST HISTORY: 69 years -old Female with cervical radiculopathy COMPARISON: None TECHNIQUE: Routine MRI of the cervical spine without contrast. FINDINGS: Normal cervicallordosis is preserved. The vertebral bodies are normal inheight and in normal alignment. The cervical cord is normal in caliber anddemonstrates normal signal intensity. Scattered minimal Schmorl's nodes and Modic type II endplate degenerationseen. The background marrow signal is otherwise unremarkable. C2-C3 : No significant spinal canal stenosis or neural foraminal narrowing. C3-C4 : Shallow diffuse posterior disc osteophyte complex with bilateraluncovertebral and facet joint arthrosis that results in no more than mildspinal canal stenosis and no significant neural foraminal narrowing. C4-C5: There is a diffuse posterior disc osteophyte complex with mildfacet joint arthrosis and broad-based central disc protrusion that resultsin mild to moderate spinal canal stenosis and no significant n euralforaminal narrowing. C5-C6 : Diffuse disc osteophyte complex with bilateral uncovertebral andfacet joint arthrosis that results in mild right neural foraminal narrowingand mild spinal canal stenosis. Posterior annular fissure suspected. C6-C7 : There is a small central posterior disc osteophyte complex withmild facet joint arthrosis that results in no more than mild spinal canalstenosis. No high-grade neural foraminal narrowing. C7-T1 : No significant spinal canal stenosis or neural foraminal narrowing. Visualized on sagittal images only is T3-T4 where there is a broad-basedcentral disc protrusion that results in mild to moderate spinal canalstenosis.[facility])2024-04-28 21:09:50* Test Item Value Reference Range Interpretation Comme nts POCT GLU (test code = 6459094418) 130 mg/dL 70-110 H Lab Interpretation (test cod e = 50695-4) Abnormal [facility] (AUTOMATED)2024-04-28 16:32:51* Test Item Value Reference Range Interpretation Comme nts POCT GLU (test code = 9863134812) 138 mg/dL 70-110 H Lab Interpretation (test cod e = 76691-7) Abnormal [facility] (AUTOMATED)2024-04-28 12:40:49* Test Item Value Reference Range Interpretation Comme nts POCT GLU (test code = 3353942267) 98 mg/dL 70-110 Lab Interpretation (test cod e = 43718-2) Normal [facility] GLU[facility]SE (AUTOMATED)2024-04-28 01:47:46* Test Item Value Reference Range Interpretation Comme [facility] POCT GLU (test code = 3926667266) 164 mg/dL 70-110 H Lab Interpretation (test cod e = 18391-2) [facility]2024-[facility]-27 22:34:33* Test Item Value Reference Range Interpretation Comme nts Height (test code = 5880322484) 65 in Weight (test code = 4231388243) 192 lbs Systolic BP (test code = 6575013495) 112 mmHg Diastolic BP (test code = 6416545085) 70 mmHg Heart Rate (test code = 9523422128) 66 bpm LV GLS Endo Peak A2C () (test code = 2495513413) -25.00 % LV GLS Endo Peak A3C () (test code = 8722571977) -22.50 % LV GLS Endo Peak A4C () (test code = 0547194618) -23.20 % LV GLS Endo Peak Avg () (test code = 3799129527) -23.60 % BSA (test code = 8136379512) 1.94 m2 Ao root diam (test code = 9223293658) 3.20 cm Aortic root (test code = 1141748999) 3.2 cm Ao root annulus (test code = 0331197352) 3.2 cm LVOT diameter (test code = 5886869799) 1.80 cm LVOT area (test code = 6557197816) 2.60 cm2 LA size (test code = 3665133164) 4.8 cm LVIDD (test code = 4367084851) 4.20 cm Left Ventricular End Diastolic Volume by Teichholz Method (test code = 0524427) 80.3 mL IVS (test code = 0516819919) 1.31 cm Interventricular Septum Diastolic Thickness by 2D (test code = 2679436) 1.31 cm LVPWD (test code = 5076810891) 1.28 cm PW (test code = 5582499705) 1.28 cm 0.6-1.1 EF(Teich) (test code = 7862928468) 65.30 % LVIDS (test code = 5264804309) 2.70 cm Left Ventricular End Systolic Volume by Teichholz Method (test code = 4322356) 27.8 mL FS (test code = 4411216473) 36 % EF - 2D (test code = 72223910) 65.30 % LAV(MOD-sp4) (test code = 2105782179) 44.20 mL E wave decelartion time (test code = 4555844658) 0.19 s MV Peak E Tone (test code = 9164787462) 64.5 cm/s MV Peak A Tone (test code = 8886361252) 40.9 cm/s E/A ratio (test code = 5932854078) 1.58 ratio MV stenosis pressure 1/2 time (test code = 4190094570) 56.3 ms MV Prop V (test code = 2231488417) 51.10 cm/s MV E/e' septal (test code = 3738582861) 8.5 cm/s Tapse (test code = 7313759338) 1.43 cm LVOT stroke volume (test code = 3124552160) 44.70 cm3 LVOT peak tone (test code = 0791418820) 111.6 cm/s LVOT mn grad (test code = 8905929818) 2.4 mmHg AV LVOT peak gradient (test code = 2359494394) 5.0 mmHg LVOT peak VTI (test code = 1351474968) 17.5 cm LV V1 mean (test code = 8298350329) 72.10 cm/s Aortic valve mean velocity (test code = 5211012449) 106.4 cm/s Ao peak tone (test code = 7965685514) 151.1 cm/s Ao VTI (test code = 2166444432) 22.9 cm AV area by cont VTI (test code = 4345984427) 2.0 cm2 AV area peak tone (test code = 9148748094) 1.9 cm2 Ao max PG (test code = 1738383951) 9.10 mm[Hg] AV peak gradient (test code = 0090628316) 9.1 mmHg AV valve area (test code = 2426594657) 1.96 cm2 AV mean gradient (test code = 8905638833) 5.0 mmHg Radiology Study observation (narrative) (test code = 31798-5) ZAK (test code = ZAK) ?Left?Ventricle: Left ventricle size is normal. Increased wall thickness. Normal wall motion. Normal systolic function with a visually estimated EF of 60 - 65%. Indeterminate diastolic function. ?Right?Ventricle: Right ventricle size is normal. Normal systolic function. ?Tricuspid?Valve: Insufficient tricuspid regurgitation jet to estimate RVSP, but probably normal. RA pressure is 0-5 mmHg. ?Pulmonic?Valve: Valve structure is normal. Left VentricleLeft ventricle size is normal. Increased wall thickness. Normal wall motion. No regional wall motion abnormalities. Normal systolic function with a visually estimated EF of 60 - 65%. Indeterminate diastolic function.Right VentricleRight ventricle size is normal. Normal systolic function.Left AtriumLeft atrium is moderately dilated.Right AtriumRight atrium size is normal.Mitral ValveMildly thickened leaflets. Mild mitral annular calcification. Trace transvalvular regurgitation.Tricuspi d ValveTricuspid valve structure is normal. Trace transvalvular regurgitation. Insufficient tricuspid regurgitation jet to estimate RVSP, but probably normal. RA pressure is 0-5 mmHg.Aortic ValveTricuspid. Mildly thickened cusps. No transvalvular regurgitation.Pulmonic ValveValve structure is normal. Physiologically normal transvalvular regurgitation.Ascendin g AortaNormal sized aorta.PericardiumThe pericardium is normal. No pericardial effusion.Study DetailsStudy quality was adequate. A complete echocardiogram was performed using 2D, color flow Doppler, spectral Doppler and strain. [facility] GLU[facility]SE (AUTOMATED)2024-04-27 21:43:50* Test Item Value Reference Range Interpretation Comme nts POCT GLU (test code = 9321635291) 125 mg/dL 70-110 H Lab Interpretation (test cod e = 15674-3) Abnormal [facility]SE (AUTOMATED)2024-04-27 16:24:49* Test Item Value Reference Range Interpretation Comme nts POCT GLU (test code = 9862754984) 198 mg/dL 70-110 H Lab Interpretation (test cod e = 45247-0) Abnormal [facility] GLUCOSE (AUTOMATED)2024-04-27 12:42:16* Test Item Value Reference Range Interpretation Comme nts POCT GLU (test code = [id number]) 116 mg/dL 70-110 H Lab Interpretation (test cod e = 98511-4) Abnormal [facility] GLUCOSE (AUTOMATED)2024-04-27 06:52:13* Test Item Value Reference Range Interpretation Comme nts POCT GLU (test code = [id number]) 89 mg/dL 70-110 Lab Interpretation (test cod e = 34435-4) Normal [facility] GLUCOSE (AUTOMATED)2024-04-27 01:50:16* Test Item Value Reference Range Interpretation Comme nts POCT GLU (test code = [id number]) 133 mg/dL 70-110 H Lab Interpretation (test cod e = 36977-7) Abnormal [facility] GLUCOSE (AUTOMATED)2024-04-26 20:57:45* Test Item Value Reference Range Interpretation Comme nts POCT GLU (test code = 7877827703) 134 mg/dL 70-110 H Lab Interpretation (test cod e = 18111-6) Abnormal [facility] GLUCOSE (AUTOMATED)2024-04-26 16:23:43* Test Item Value Reference Range Interpretation Comme nts POCT GLU (test code = 6878313732) 151 mg/dL 70-110 H Lab Interpretation (test cod e = 76070-6) Abnormal [facility] GLUCOSE (AUTOMATED)2024-04-26 12:54:15* Test Item Value Reference Range Interpretation Comme nts POCT GLU (test code = 6952902628) 193 mg/dL 70-110 H Lab Interpretation (test cod e = 72267-0) [facility]2024-04-26 05:04:09* Test Item Value Reference Range Interpretation Comme nts HGB A1C (test code = 4548-4) 9.2 % 4.0-5.7 H ZAK (test code = ZAK) Reference RangesNormal: <5.7%Prediabetes: 5.7 - 6.4%Diabetes: > 6.5% Lab Interpretation (test code = 50432-1) [facility] [id number] 04:24:58Dustin Maharaj MD ? ? 04/25/2024 11:24 PMCritical Care Performed by: Dustin Maharaj MDAuthorizedby: Dustin Maharaj MD ?Critical care provider statement: ?Critical care time (minutes): ?45 ?Critical care time was exclusive of: ?Separately billable procedures and treating other patients and teaching time ?Critical care was necessary to treat or prevent imminent or life-threatening deterioration of the following conditions: ?Cardiac failure ?Critical care was time spent personally by me on the following activities: ?Development of treatment plan with patient or surrogate, evaluation of patient's response to treatment, examination of patient, obtaining history from patient or surrogate, ordering and performing treatments and interventions, ordering and review of laboratory studies, ordering and review of radiographic studies, pulse oximetry, re- evaluation of patient's condition and review of old charts ?Care discussed with: admitting provider ?Comments: ? Due to a high probability of clinically significant, life threatening deterioration, the patient required my highest level of preparedness to intervene emergently and I personally spent this critical care time directly and personally managing the patient. This critical care time included obtaining a history; examining the patient; pulse oximetry; ordering and review of studies; arranging urgent treatment with development ofa management plan; evaluation of patient's response to treatment; frequent reassessment; and, discussions with other providers.This critical care time was performed to assess and manage the high probability of imminent, life- threatening deterioration that could result in multi-organ failure. It was exclusive of separately billable procedures and treating other patients. [facility] [id number] 03:34:58* Test Item Value Reference Range Interpretation Comme nts TROPONIN I (test code = 5426849030) 0.007 ng/mL <=0.034 ZAK (test code = ZAK) Reference (Normal) [...] of biotin. Lab Interpretation (test code = 68249-6) [facility]MIN[facility] [id number] 03:32:58* Test Item Value Reference Range Interpretation Comme nts NT-proBNP (test code = 40495-9) 1360 pg/mL <=125 H ZAK (test code = ZAK) Positive: Heart Failure Likely Lab Interpretation (test code = 94517-3) [facility] Heights[facility]2024-08-26 03:18:34* Test Item Value Reference Range Interpretation Comme nts MAGNESIUM (test code = 1619222072) 1.6 mg/dL 1.7-2.4 L Lab Interpretation (test cod e = 35058-8) Abnormal [facility]. METABOLIC PANEL (19185)2024-04-26 03:18:14* Test Item Value Reference Range Interpretation Comme nts NA (test code = 1923089091) 134 mmol/L 135-145 L K (test code = 5360954401) 3.8 mmol/L 3.5-5.0 CL (test code = 6880329162) 98 mmol/L 98-108 CO2 TOTAL (test code = 9024821886) 28 mmol/L 23-31 AGAP (test code = 8897535864) 8 2-16 BUN (test code = 4339193610) 15 mg/dL 7-23 GLUCOSE (test code = 6839820789) 131 mg/dL 70-110 H CREATININE (test code = 2160-0) 0.67 mg/dL 0.50-1.04 TOTAL BILI (test code = 8587142428) 1.6 mg/dL 0.1-1.1 H CALCIUM (test code = 1694752144) 9.7 mg/dL 8.6-10.6 T PROTEIN (test code = 4757146574) 8.2 g/dL 6.3-8.2 ALBUMIN (test code = 5369655533) 4.5 g/dL 3.5-5.0 ALK PHOS (test code = 6129177488) 93 U/L 34-122 ALTv (test code = 1742-6) 21 U/L 5-35 AST(SGOT) (test code = 2497896583) 35 U/L 13-40 eGFR (test code = 35177-7) 95.9 mL/min/1.73m2 CKD-EPI eGFR (2020). Assuming creatinine has been stable day-to-day for at least three months, the eGFR indicates Category G1 (>= 90 mL/min/1.73 m2) Lab Interpretation (test code = 12602-0) [facility]2024-[facility] 03:18:14* Test Item Value Reference Range Interpretation Comme nts LIPASE (test code = 9284095781) 100 U/L 0-220 Lab Interpretation (test cod e = 99133-8) [facility] WITH [id number] 02:36:12* Test Item Value Reference Range Interpretation Comme nts WBC (test code = 6690-2) 8.77 4.30-11.10 RBC (test code = 789-8) 4.76 3.93-5.25 HGB (test code = 718-7) 14.8 g/dL 11.6-15.0 HCT (test code = 4544-3) 43.2 % 35.7-45.2 MCV (test code = 787-2) 90.8 fL 80.6-95.5 MCH (test code = 785-6) 31.1 pg 25.9-32.8 MCHC (test code = 786-4) 34.3 g/dL 31.6-35.1 RDW-SD (test code = 43196-9) 42.9 fL 39.0-49.9 RDW-CV (test code = 788-0) 13.0 % 12.0-15.5 PLT (test code = 777-3) 196 166-358 MPV (test code = 16379-2) 10.0 fL 9.5-12.9 NRBC/100 WBC (test code = 3087125463) 0.0 0.0-10.0 NRBC x10^3 (test code = 1319360541) See_Comment [Automated messa ge] The system which generated this result transmitted reference range: 10*3/?L. The reference range was not used to interpret this result as normal/abnormal. GRAN MAT (NEUT) % (test code = 770-8) 78.4 % IMM GRAN % (test code = 7699142993) 0.50 % LYMPH % (test code = 736-9) 11.7 % MONO % (test code = 5905-5) 8.1 % EOS % (test code = 713-8) 0.8 % BASO % (test code = 706-2) 0.5 % GRAN MAT x10^3(ANC) (test code = 7612779449) 6.88 10*3/uL 1.88-7.09 IMM GRAN x10^3 (test code = 6087249595) 0.04 10*3/uL 0.00-0.06 LYMPH x10^3 (test code = 731-0) 1.03 10*3/uL 1.32-3.29 L MONO x10^3 (test code = 742-7) 0.71 10*3/uL 0.33-0.92 EOS x10^3 (test code = 711-2) 0.07 10*3/uL 0.03-0.39 BASO x10^3 (test code = 704-7) 0.04 10*3/uL 0.01-0.07 Lab Interpretation (test code = 15350-3) [facility] GLUCOSE (AUTOMATED)2022-09-19 18:24:53* Test Item Value Reference Range Interpretation Comme nts POCT GLU (test code = 8678616610) 147 mg/dL 70-110 H Lab Interpretation (test cod e = 58097-8) Abnormal [facility] GLUCOSE (AUTOMATED)2022-09-19 16:02:54* Test Item Value Reference Range Interpretation Comme nts POCT GLU (test code = 5774972462) 86 mg/dL 70-110 Lab Interpretation (test cod e = 52231-5) Normal [facility] GLUCOSE (AUTOMATED)2022-09-19 01:50:19* Test Item Value Reference Range Interpretation Comme nts POCT GLU (test code = 5915960956) 127 mg/dL 70-110 H Lab Interpretation (test cod e = 66701-3) Abnormal [facility] GLUCOSE (AUTOMATED)2022-09-18 22:39:24* Test Item Value Reference Range Interpretation Comme nts POCT GLU (test code = 6066241115) 104 mg/dL 70-110 Lab Interpretation (test cod e = 01098-4) Normal [facility] GLUCOSE (AUTOMATED)2022-09-18 17:35:45* Test Item Value Reference Range Interpretation Comme nts POCT GLU (test code = 7296436286) 158 mg/dL 70-110 H Lab Interpretation (test cod e = 61745-9) Abnormal [facility] GLUCOSE (AUTOMATED)2022-09-18 14:16:24* Test Item Value Reference Range Interpretation Comme nts POCT GLU (test code = 2455420435) 148 mg/dL 70-110 H Lab Interpretation (test cod e = 42780-5) Abnormal [facility] GLUCOSE (AUTOMATED)2022-09-18 02:59:51* Test Item Value Reference Range Interpretation Comme nts POCT GLU (test code = 7215066843) 174 mg/dL 70-110 H Lab Interpretation (test cod e = 25518-0) [facility]an[facility] (TTE)2022-09-17 23:30:34* Test Item Value Reference Range Interpretation Comme nts Height (test code = 6464371783) in Weight (test code = 4132319420) lbs Systolic BP (test code = 0095957201) mmHg Diastolic BP (test code = 9978080241) mmHg Heart Rate (test code = 9297798769) bpm BSA (test code = 6868167639) 1.98 m2 Ao root diam (test code = 2509787175) 3.10 cm Aortic root (test code = 0576511206) 3.1 cm Ao root annulus (test code = 2498458397) 3.1 cm LVOT diameter (test code = 8409569091) 1.82 cm LVOT area (test code = 0630204988) 2.60 cm2 LVIDD (test code = 0252836704) 4.00 cm Left Ventricular End Diastolic Volume by Teichholz Method (test code = 5300942) 69.3 mL IVS (test code = 1656068849) 1.19 cm Interventricular Septum Diastolic Thickness by 2D (test code = 7533728) 1.19 cm LVPWD (test code = 0827983317) 1.19 cm PW (test code = 6525789749) 1.19 cm 0.6-1.1 EF(Teich) (test code = 5441048403) 54.60 % LVIDS (test code = 7476002825) 2.90 cm Left Ventricular End Systolic Volume by Teichholz Method (test code = 4211756) 31.4 mL FS (test code = 3980116867) 28 % EF - 2D (test code = 65839245) 54.60 % LA size (test code = 9134468410) 4.5 cm LAV(MOD-sp4) (test code = 1678403920) 64.20 mL E wave decelartion time (test code = 0069200287) 0.14 s MV Peak E Tone (test code = 3458574957) 73.1 cm/s MV stenosis pressure 1/2 time (test code = 2140385916) 41.2 ms MV Peak A Tone (test code = 4792528670) 27.2 cm/s E/A ratio (test code = 9686049470) ratio MV Prop V (test code = 4229354856) 25.00 cm/s MV E/e' septal (test code = 5371323631) 8.1 cm/s Tapse (test code = 5357206631) 1.63 cm TR Peak Tone (test code = 2020521450) 199.0 cm/s Triscuspid Valve Regurgitation Peak Gradient (test code = 0203551598) mmHg LVOT stroke volume (test code = 9607672010) 54.40 cm3 LVOT peak tone (test code = 2734572418) 127.5 cm/s LVOT mn grad (test code = 8202824325) mmHg AV LVOT peak gradient (test code = 7035164733) mmHg LVOT peak VTI (test code = 7126426297) 21.0 cm LV V1 mean (test code = 0669328487) 69.50 cm/s Aortic valve mean velocity (test code = 0652501659) 119.0 cm/s Ao peak tone (test code = 1956053437) 161.8 cm/s Ao VTI (test code = 8954740625) 26.0 cm AV area by cont VTI (test code = 5602561776) 2.1 cm2 AV area peak tone (test code = 7237815756) 2.0 cm2 Ao max PG (test code = 2657052784) 10.50 mm[Hg] AV peak gradient (test code = 5669707212) mmHg AV valve area (test code = 4411489678) 2.09 cm2 AV mean gradient (test code = 8765194903) mmHg Radiology Study observation (narrative) (test code = 13518-3) ZAK (test code = ZAK) ?Left?Ventricle: Left [...] 2D, color flow Doppler and spectral Doppler. [facility] GLUCOSE (AUTOMATED)2022-09-17 22:53:28* Test Item Value Reference Range Interpretation Comme nts POCT GLU (test code = 2796756944) 121 mg/dL 70-110 H Lab Interpretation (test cod e = 59523-2) Abnormal [facility] GLUCOSE (AUTOMATED)2022-09-17 17:41:55* Test Item Value Reference Range Interpretation Comme nts POCT GLU (test code = 3638854156) 193 mg/dL 70-110 H Lab Interpretation (test cod e = 47588-3) Abnormal [facility] GLUCOSE (AUTOMATED)2022-09-17 13:47:30* Test Item Value Reference Range Interpretation Comme nts POCT GLU (test code = 1123823465) 115 mg/dL 70-110 H Lab Interpretation (test cod e = 80839-4) [facility] (A1C)2022-09-17 06:05:45* Test Item Value Reference Range Interpretation Comme nts HGB A1C (test code = 4548-4) 8.9 % 4.0-5.7 H ZAK (test code = ZAK) Reference RangesNormal: <5.7%Prediabetes: 5.7 - 6.4%Diabetes: > 6.5% Lab Interpretation (test code = 51942-9) [facility]YROID STIMULATING [id number] 22:23:39 * Test Item Value Reference Range Interpretation Comme nts TSH (test code = 1755773972) See_Comment [Automated messa ge] The system which generated this result transmitted reference range: 0.45 - 4.70 mIU/L. The reference range was not used to interpret this result as normal/abnormal. Lab Interpretation (test code = 37700-1) [facility] [id number] 22:04:57* Test Item Value Reference Range Interpretation Comments TROPONIN I (test code = 6859180785) 0.007 ng/mL See_Comment [Automated message] The system [...] of biotin. Lab Interpretation (test code = 39133-1) [facility]2023-01-16 21:53:35* Test Item Value Reference Range Interpretation Comme nts MAGNESIUM (test code = 3215241542) 1.7 mg/dL 1.7-2.4 Lab Interpretation (test cod e = 01451-4) [facility] METABOLIC PANEL (60449)2022-09-16 21:53:15* Test Item Value Reference Range Interpretation Comme nts NA (test code = 6220098486) 138 mmol/L 135-145 K (test code = 2277698072) 4.3 mmol/L 3.5-5.0 CL (test code = 7263089941) 101 mmol/L 98-108 CO2 TOTAL (test code = 6046753751) 25 mmol/L 23-31 AGAP (test code = 6716136574) 2-16 BUN (test code = 6237150674) 16 mg/dL 7-23 GLUCOSE (test code = 4556732366) 186 mg/dL 70-110 H CREATININE (test code = 1608685845) 0.73 mg/dL 0.50-1.04 TOTAL BILI (test code = 8583411541) 1.4 mg/dL 0.1-1.1 H CALCIUM (test code = 5552964214) 9.4 mg/dL 8.6-10.6 T PROTEIN (test code = 2533086317) 7.7 g/dL 6.3-8.2 ALBUMIN (test code = 2209584884) 4.7 g/dL 3.5-5.0 ALK PHOS (test code = 6888472959) 125 U/L 34-122 H ALTv (test code = 1742-6) 21 U/L 5-35 AST(SGOT) (test code = 5693501754) 22 U/L 13-40 eGFR (test code = 8883254430) mL/min/1.73m2 ZAK (test code = ZAK) Association [...] imaging tests). Lab Interpretation (test code = 74854-9) Abnormal [facility] WITH [id number] 21:34:56* Test Item Value Reference Range Interpretation Comme nts WBC (test code = 6690-2) See_Comment [[employer]] The system which generated this result transmitted reference range: 4.30 - 11.10 10*3/?L. The reference range was not used to interpret this result as normal/abnormal. RBC (test code = 789-8) See_Comment [[employer]] The system which generated this result transmitted [...] 33.3 g/dL 31.6-35.1 RDW-SD (test code = 13930-6) 42.7 fL 39.0-49.9 RDW-CV (test code = 788-0) 12.8 % 12.0-15.5 PLT (test code = 777-3) See_Comment [[employer]] The system which generated this result transmitted reference range: 166 - 358 10*3/?L. The reference range was not used to interpret this result as normal/abnormal. MPV (test code = 07936-5) 9.6 fL 9.5-12.9 NRBC/100 WBC (test code = 7883494208) See_Comment [Automated me ssage] The system which generated this result transmitted reference range: 0.0 - 10.0 /100 WBCs. The reference range was not used to interpret this result as normal/abnormal. NRBC x10^3 (test code = 1650119417) See_Comment [Automated messa ge] The system which generated this result transmitted reference range: 10*3/?L. The reference range was not used to interpret this result as normal/abnormal. GRAN MAT (NEUT) % (test code = 770-8) 65.8 % IMM GRAN % (test code = 1922291331) 0.30 % LYMPH % (test code = 736-9) 22.1 % MONO % (test code = 5905-5) 9.5 % EOS % (test code = 713-8) 1.4 % BASO % (test code = 706-2) 0.9 % GRAN MAT x10^3(ANC) (test code = 4422611141) 5.81 10*3/uL 1.88-7.09 IMM GRAN x10^3 (test code = 1680167229) 0.03 10*3/uL 0.00-0.06 LYMPH x10^3 (test code = 731-0) 1.95 10*3/uL 1.32-3.29 MONO x10^3 (test code = 742-7) 0.84 10*3/uL 0.33-0.92 EOS x10^3 (test code = 711-2) 0.12 10*3/uL 0.03-0.39 BASO x10^3 (test code = 704-7) 0.08 10*3/uL 0.01-0.07 H Lab Interpretation (test code = 42012-5) Abnormal [facility] Consult Notes Date/Time Note Provider Source 2024-04-27 10:30:00 Associated Order(s): CONSULT ADULT PHYSICAL THERAPY Patient agreeable to working with physical therapy. Patient met semi reclined in bed. Recommend nursing staff utilize PT/RN supervision to safely assist patient with mobility out of the bed or chair. PHYSICAL THERAPY EVALUATION Consult received, chart reviewed and evaluation complete this date. Patient is referred to PT for evaluation and treatment. Patient is a 68 year old female who presents to hospital for Flu-like symptoms [R68.89] Discharge Recommendations: Therapy Needs and Potential: Patient without any skilled PT needs at this time. Challenges to Home Transition: decreased safety awareness Equipment recommendations: rolling walker Current Functional Status and/or Treatment: AM-PAC 6 Clicks (Raw Score 0=Dependent, 24=Independent; Low function Raw Score 0= Dependent, 32=Independent): Raw Score - Basic Mobility : 21 T-Scale Score - Basic Mobility : 45.55 Bed Mobility: Rolling: Supervision Bridging: Supervision Supine-sit: Supervision Sit to supine: Supervision Sitting balance Good Cued Pt was able to perform bed mobility exercise Dizziness No Transfers: Sit to stand: Minimal Assistance using rolling Walker. Stand to sit: Minimal Assistance using rolling Walker. Stand pivot transfer: Supervision Lateral scooting transfer: Supervision Static/dynamic standing balance: Good Verbal cueing provided for correct hand placement and correct use of AD Cued Pt was able to perform transfer activities safely, PT was on contact guard assist w/ gait belt as a precaution for fall. Dizziness Yes, Pt was instructed to perform deep breathing exercise to calm down the symptoms Ambulation: Assisted patient with ambulation as follows: 3 feet using rolling Walker. and Minimal Assistance. Cued Pt was able to take steps forward, back and lateral steps. PT on contact guard assist as a precaution for fall. Dizziness No Therapeutic exercise: patient educated in Deep breathing, Fall prevention, Relaxation/breathing techniques, and Safety awareness. After session, patient semi reclined in bed. Call button provided. PT informed RN of Pt status. PLAN OF CARE: PT signs off. See below for complete details. Admit Date: 04/25/2024 Hospital Diagnosis:Flu-like symptoms [R68.89] PT Diagnosis: Weakness and Malaise/fatigue Weight Bearing Precaution: NA General Precautions: PPE used:Gloves, Gown, N-95 Mask, and Face shield, General, Fall, Covid isolation,Purewick catheter Bracing/Cast present or required:N/A PMH: Past Medical History: Diagnosis Date Atrial fibrillation 2012 on eliquis CVA (cerebral vascular accident) 2016 post procedural after AFib ablation, with residual left hand tingling DEPRESSION Endometrial adenocarcinoma s/p hysterectomy Erythema of gastric antrum erosions in 2008 and 2004 Febrile seizure Hypertension Malignant neoplasm of corpus uteri, except isthmus 2012 s/p hysterectomy, lympth node dissection, radiation, chemotherapy Other and unspecified hyperlipidemia 07/09/2006 Peripheral neuropathy due to chemotherapy Type II or unspecified type diabetes mellitus without mention of complication, not stated as uncontrolled 12/06 Uterine cancer PSH: Past Surgical History: Procedure Laterality Date SECTION 1989 LAB ONLY PAP SMEAR-LIQUID BASED 2012 LAPAROSCOPIC APPENDECTOMY 09/13/2013 Surgeon: Radhika Newton MD; [facility] LAPAROSCOPIC ROBOTIC ASSISTED SALPINGO-OOPHORECTOMY 12/17/2012 Surgeon: Reji Barriga MBBC; [facility]: [facility] LAPAROSCOPIC ROBOTIC ASSISTED VAGINAL HYSTERECTOMY 12/17/2012 Surgeon: Reji Barriga MBBCH; Location: [facility] LYSIS OF ABDOMINAL ADHESIONS 02/03/2013 Surgeon: Get Whittington MD; Location: [facility] MAMMOGRAM, BILATERAL-DIAGNOSTIC 2012 REMOVAL GALLBLADDER 1997 ROBOTIC ASSISTED LYMPH NODE DISSECTION (SHX) 02/03/2013 Surgeon: Get Whittington MD; Location: [facility] TUBAL LIGATION 1989 WIDE LOCAL VULVAR LESION EXCISION 06/13/2014 WIDE LOCAL VULVAR LESION EXCISION N/A 06/13/2014 Surgeon: Get Whittington MD; Location: [facility] Prior Living Situation: in a house and with their son, 1 story house DME: Standard Walker, Cane Prior level of Mobility: ambulates with rolling Walker. Suspected ischemic or hemorraghic stroke:No Subjective: Pt was complaining of migraine headache 04/10 on the PS Patient/Family Goals: To get better Patient/Family verbalizes understanding of condition: Yes PAIN: -Pain Location: head -Pain rating before treatment: 8, After treatment: does not rate COMMUNICATION Primary Language: Comoran Able to Verbalize needs: Yes Vision:good; no issues reported Hearing:good; no issues reported ORIENTATION/COGNITION: Oriented to: person, place, and situation Awake: Yes Alert: Yes Dizzy: No Follows Commands: Yes 1-Step Yes Multi-Step Yes Inconsistent: No NEUROLOGICAL Light Touch: within functional limits bilateral LE BALANCE: Sitting: Static: Good Dynamic: Good Standing: Static: Good Dynamic: Good RANGE OF MOTION: within functional limits bilateral LE STRENGTH: 3+/5 (F+), bilateral LE ENDURANCE: Fair+, uses portable oxygen at home SKIN INTEGRITY: intact, PROBLEM LIST: Decreased endurance and Safety awareness deficits ASSESSMENT: Patient is a 68 year old female seen secondary to the above listed diagnosis. No further inpatient PT needs identified at this time. Rehabilitation Potential: good Goals: The following goals are to maximize independence and safety with functional mobility to eventually return to prior living situation and prior functional status. Upon discharge, patient and/or family will demonstrate the followin. Rolling: Independent Bridging: Independent Supine-sit: Independent Sit to supine: Independent Sitting balance Good 2. Sit to stand: Supervision using rolling Walker. Stand to sit: Supervision using rolling Walker. Stand pivot transfer: Supervision Lateral scooting transfer: Supervision 3. Supervision with ambulation, Feet: 5 ft initially using least assistive device. Treatment Plan: Evaluation, Gait training, and Safety education, patient/caregiver education PATIENT EDUCATION: Patient provided with preferred teaching of verbal information and demonstration on role of PT, plan of care, and goals. Shows readiness to learn. Verbal instruction and Demonstration teaching provided. Individual is able to read and verbalizes understanding of teaching provided. Total Time Tx Codes in Minutes: 20 min Total Treatment Time in Minutes: 40 min Zuri Hays PT [place] Lic No. [id number] [facility] Department of Physical Therapy Zuri Hays PT [facility] 2024-04-26 17:00:42 Associated Order(s): CONSULT CARDIOLOGY [facility] Cardiology Consult Note Patient: Sherrie Hernandez Date of : 1955 04/26/2024 Primary Care Physician: Sushila Babb CHIEF COMPLAINT: Chief Complaint Patient presents with Fever Headache Cough History of Present Illness: Sherrie Hernandez is a 68 year old female presents to the hospital for evaluation of fever/headache/cough. Noted to have COVID-positive. Patient currently admitted to COVID isolation status in the ICU. Last seen by me dated 09/2022. Since then patient has been following up with Dr. Santos. Presented to the ED secondary to fever, headache, nonproductive cough, nausea, vomiting, rhinorrhea, body aches, intermittent shortness of breath, decreased oral intake, sore throat, and weakness for the past 3 days. Patient currently COVID-positive status undergoing treatment. In the ED, patient was having frequent NSVT and seen to have hypomagnesemia. Started on IV amiodarone drip. Prior cardiac history: Recurrent paroxysmal defibrillation with RVR episodes noted: [id number] (age, female, hypertension, diabetes, history of CVA). Since last seen by me dated 01/09/2022, seen by Dr. Esteban dated 03/22/2022. Last seen by EP 08/[address] Jimenes post atrial fibrillation ablation. PMH of atrial fibrillation (s/p ablation times 2), CVA, depression, HTN, HLD, DMII, uterine cancer. Risk factors: obese, DM, uncontrolled dyslipidemia, atrial fibrillation, nonobs CAD Previous Cardiac Studies: IMAGING - I personally reviewed, pertinent results as below: EKG 09/16/2022 reviewed shows atrial fibrillation, narrow QRS complex, nonspecific ST-T changes. Chest x-ray 09/06/2022 reviewed shows no evidence of any heart failure pattern. ECG 02/03/2019 SR with narrow QRS complex. No sig ST changes. ECG 06/13/2020 SR with narrow QRS complex. No sig ST changes. Echo 01/2019 Interpretation Summary A complete two-dimensional transthoracic echocardiogram was performed (2D, M-mode, Doppler and color flow Doppler). The study was technically adequate. Compared to prior study, changes are noted. Left ventricular systolic function is normal. Diastolic dysfunction. The right ventricle is normal in size and function. Right ventricular systolic pressure is 15-20 mmHg. Mildly dilated ascending aorta. PAST MEDICAL HISTORY Past Medical History: Diagnosis Date Atrial fibrillation 2012 on eliquis CVA (cerebral vascular accident) 2016 post procedural after AFib ablation, with residual left hand tingling DEPRESSION Endometrial adenocarcinoma s/p hysterectomy Erythema of gastric antrum erosions in 2008 and 2004 Febrile seizure Hypertension Malignant neoplasm of corpus uteri, except isthmus 2012 s/p hysterectomy, lympth node dissection, radiation, chemotherapy Other and unspecified hyperlipidemia 07/09/2006 Peripheral neuropathy due to chemotherapy Type II or unspecified type diabetes mellitus without mention of complication, not stated as uncontrolled 12/06 Uterine cancer Past Surgical History: Procedure Laterality Date SECTION 1989 LAB ONLY PAP SMEAR-LIQUID BASED 2012 LAPAROSCOPIC APPENDECTOMY 09/13/2013 Surgeon: Radhika Newton MD; [facility] LAPAROSCOPIC ROBOTIC ASSISTED SALPINGO-OOPHORECTOMY 12/17/2012 Surgeon: [facility]; [facility]: [facility] LAPAROSCOPIC ROBOTIC ASSISTED VAGINAL HYSTERECTOMY 12/17/2012 Surgeon: Reji Barriga [facility]; Location: [facility] LYSIS OF ABDOMINAL ADHESIONS 02/03/2013 Surgeon: Get Whittington MD; Location: [facility] MAMMOGRAM, BILATERAL-DIAGNOSTIC 2012 REMOVAL GALLBLADDER 1997 ROBOTIC ASSISTED LYMPH NODE DISSECTION (SHX) 02/03/2013 Surgeon: Get Whittington MD; Location: [facility] TUBAL LIGATION 1989 WIDE LOCAL VULVAR LESION EXCISION 06/13/2014 WIDE LOCAL VULVAR LESION EXCISION N/A 06/13/2014 Surgeon: Get Whittington MD; Location: [facility] Family History Problem Relation Age of Onset Other - see comments Brother 40 ETOH abuse Hypertension Mother Diabetes Sister Cancer Sister 62 lung cancer Cancer Father LUNG Stroke Mother Cancer Paternal Aunt 65 one aunt with pancreatic cancer in 60s, one with stomach cancer in 60s SOCIAL HISTORY Social History Socioeconomic History Marital status: Tobacco Use Smoking status: Never Passive exposure: Never Smokeless tobacco: Never Substance and Sexual Activity Alcohol use: Yes Alcohol/week: 0.0 standard drinks of alcohol Comment: OCCASIONALLY Drug use: No Sexual activity: Never Partners: Male control/protection: Surgical Comment: Pt's is diabetic and has ED Social History Narrative Has good family support, mom living with her since passed. Has spiritual community at sikhism but doesn t go often due to not driving, never learned to drive. 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 Good work support. Pt values health wanting to see great grand daughter grow up and wants to be present to care for mom who is in her 80s. SUBHASH HINSON MD 07/11/2015 9:35 PM Social Determinants of Health Financial Resource Strain: Low Risk (09/17/2022) Overall Financial Resource Strain (CARDIA) Difficulty of Paying Living Expenses: Not very hard Food Insecurity: No Food Insecurity (09/17/2022) Hunger Vital Sign Worried About Running Out of Food in the Last Year: Never true Ran Out of Food in the Last Year: Never true Transportation Needs: No Transportation Needs (09/17/2022) PRAPARE - Transportation Lack of Transportation (Medical): No Lack of Transportation (Non-Medical): No Physical Activity: Insufficiently Active (09/17/2022) Exercise Vital Sign Days of Exercise per Week: 3 days Minutes of Exercise per Session: 30 min Social Connections: Unknown (09/17/2022) Social Connection and Isolation Panel [NHANES] Frequency of Communication with Friends and Family: More than three times a week Marital Status: ALLERGIES Allergies Allergen Reactions Paclitaxel Rash and Other - See comments atrial fibrillation Latex Rash Adhesive Tape-Silicones Rash Including op site adhesives -- significant rash Metformin Unknown - See comments Chills, hypoglycemia, nausea/vomiting Pindolol Hallucinations MEDICATIONS Current Discharge Medication List STOP taking these medications diltiazem 30 mg tablet Comments: Reason for Stopping: LISINOPRIL 20 mg tablet Comments: Reason for Stopping: alendronate 70 mg tablet Comments: Reason for Stopping: diclofenac 75 mg EC tablet Comments: Reason for Stopping: atorvastatin 40 mg tablet Comments: Reason for Stopping: omeprazole 20 mg capsule Comments: Reason for Stopping: citalopram 10 mg tablet Comments: Reason for Stopping: glipiZIDE 5 mg tablet Comments: Reason for Stopping: cyclobenzaprine 10 mg tablet Comments: Reason for Stopping: apixaban 5 mg tablet Comments: Reason for Stopping: empagliflozin 25 mg Tab Comments: Reason for Stopping: calcium carbonate-vitamin D3 1,000 mg(2,500 mg)-800 unit Tab Comments: Reason for Stopping: REVIEW OF SYSTEMS: Comprehensive 10-system review was conducted and were negative except for what's noted in the HPI. The following systems were reviewed: Constitutional, cardiovascular, respiratory, gastrointestinal, genitourinary, musculoskeletal, neurologic, psychiatric, endocrinological, and hematological. PHYSICAL EXAMINATION: Vitals: 04/26/24 1100 04/26/24 1200 04/26/24 1400 04/26/24 1600 BP: 138/79 106/58 128/60 BP Location: Pulse: 83 94 67 77 Resp: 16 17 18 20 Temp: 37.1 ?C (98.8 ?F) 36.3 ?C (97.3 ?F) TempSrc: Tympanic Tympanic SpO2: 92% 93% 95% (!) 86% Weight: Height: Exam is limited due to COVID19 status ENT: normocephalic atraumatic GI: non-distended : not examined Neuro: no gross deficits noted. LABS - Reviewed pertinent labs as below: CBC BMP PT/INR WBC x10 3 (/uL) Date Value 11/26/2014 5.1 WBC (10*3/?L) Date Value 04/26/2024 7.28 NA Date Value 04/26/2024 133 mmol/L (L) 11/26/2014 136 MMOL/L No results found for: "PT" PLT x10 3 (/uL) Date Value 11/26/2014 213 PLT (10*3/?L) Date Value 04/26/2024 179 K Date Value 04/26/2024 3.8 mmol/L 11/26/2014 4.5 MMOL/L PT INR (no units) Date Value 11/23/2014 0.9 INR (no units) Date Value 11/05/2022 1.0 THB (G/DL) Date Value 02/03/2013 13.2 (L) HGB Date Value 04/26/2024 13.6 g/dL 11/26/2014 12.8 G/DL BUN Date Value 04/26/2024 11 mg/dL 11/26/2014 16 MG/DL HCT (%) Date Value 04/26/2024 39.7 11/26/2014 38.2 CREATININE Date Value 04/26/2024 0.67 mg/dL 11/26/2014 0.67 MG/DL LIPID PROFILE GLUCOSE Date Value 04/26/2024 167 mg/dL (H) 11/26/2014 124 MG/DL (H) CHOL Date Value 09/18/2022 207 mg/dL (H) 11/23/2014 310 MG/DL (H) CHOLESTEROL, TOTAL-Q (mg/dL) Date Value 02/24/2015 261 (H) TSH LDL CHOL Date Value 09/18/2022 140 mg/dL 11/23/2014 209 MG/DL (H) [id number] (mg/dL (calc)) Date Value 02/24/2015 141 (H) TSH Date Value 09/16/2022 3.44 mIU/L 11/23/2014 2.41 uIU/mL CARDIAC ENZYMES HDL CHOL (MG/DL) Date Value 11/23/2014 48 HDL CHOLESTEROL-Q (mg/dL) Date Value 02/24/2015 47 HDL (mg/dL) Date Value 09/18/2022 46 (L) CK (U/L) Date Value 08/21/2015 69 11/25/2014 41 TRIG Date Value 09/18/2022 106 mg/dL 11/23/2014 263 MG/DL (H) TRIGLYCERIDES-Q (mg/dL) Date Value 02/24/2015 365 (H) LFTs CK-MB (ng/mL) Date Value 08/21/2015 1.79 11/25/2014 1.1 AST(SGOT) (U/L) Date Value 04/25/2024 35 11/23/2014 20 TROPONIN I (ng/mL) Date Value 04/25/2024 0.007 11/25/2014 0.012 ALT(SGPT) (U/L) Date Value 03/06/2016 24 11/23/2014 23 ALTv (U/L) Date Value 04/25/2024 21 No results found for: "BNP" LDL CHOL Date Value 09/18/2022 140 mg/dL 11/23/2014 209 MG/DL (H) [id number] (mg/dL (calc)) Date Value 02/24/2015 141 (H) Labs from PCP 04/2020 CBC normal A1c 7.1 Cr 0.76 Labs 03/2020 K 4.3 Rest of the CMP Normal Lipids missing. Will request Lipids 04/2020 LDL 194 TG 182 HDL 68 ASSESSMENT/PLAN Principal Problem: Flu-like symptoms Active Problems: Essential hypertension Dyslipidemia Type 2 diabetes mellitus with other specified complication DONNELLY (dyspnea on exertion) History of endometrial cancer S/P ablation of atrial fibrillation Cerebrovascular accident (CVA) due to embolism of right carotid artery Sinus node dysfunction Atrial fibrillation with RVR History of CVA (cerebrovascular accident) without residual deficits Nonobstructive atherosclerosis of coronary artery THEODORE (obstructive sleep apnea) S/P placement of cardiac pacemaker Nonsustained ventricular tachycardia COVID positive status: Rx/workup as per primary team. Nonsustained ventricular tachycardia: Telemetry reviewed. Currently on IV amiodarone drip. Consider changing IV amiodarone to p.o. amiodarone 200 twice daily. EKG 04/25/2024 strips reviewed shows A-fib with RVR episodes, narrow QRS complex, nonspecific ST-T changes noted. Recommend Serial trop X 2, Echo to assess to EF and wall motion changes. Continue telemetry monitoring Recurrent atrial fibrillation with RVR episodes noted: [id number] (age, female, hypertension, diabetes, history of CVA). Currently atrial paced rhythm. Continue Eliquis 5 mg BiD. Consider changing IV amiodarone to p.o. amiodarone 200 twice daily. Event monitor dated 09/23/2022 strips reviewed shows paroxysmal atrial fibrillation with RVR noted. 8% burden. Converted to sinus rhythm with conversion pause of 4.6 seconds in the past noted. Continue with reduced dose of Cardizem 30 mg from every 8 hours. EKG 04/25/2024 strips reviewed shows A-fib with RVR episodes, narrow QRS complex, nonspecific ST-T changes noted. EKG 09/16/2022 strips reviewed shows atrial fibrillation, narrow QRS complex, nonspecific ST-T changes. s/p ablation 04/2016 complicated by small CVA: S/p PVI and ROBE posterior wall 10/25/2021 Echocardiogram dated 09/17/2022 images reviewed shows preserved LV systolic function. Normal RV size and function. No significant valve normalities noted. Insufficient TR jet. Recent Labs 04/25/242115 TROPNI 0.007 NT-proBNP (pg/mL) Date Value 04/25/2024 1,360 (H) 09/18/2022 300 (H) Sinus node dysfunction: Sinus pause noted in the event monitor. Continue reduced the dose of Cardizem 30 mg Q every 8 hours. Off Coreg 6.25 BiD/Cardizem CD due to sinus pause noted. Echocardiogram dated 09/17/2022 images reviewed shows preserved LV systolic function. Normal RV size and function. No significant valve normalities noted. Insufficient TR jet. History of CVA: On Eliquis 5 mg twice daily. Elevated NT proBNP: In the setting of underlying chronic diastolic heart failure/A. fib. Recommend Serial trop X 2, Echo to assess to EF and wall motion changes. Echocardiogram dated 09/17/2022 images reviewed shows preserved LV systolic function. Normal RV size and function. No significant valve normalities noted. Insufficient TR jet. Echo dated 06/18/2021 images reviewed shows preserved LV systolic function. Mildly dilated ascending artery noted. RVSP normal. No significant valve abnormalities noted. NM stress test dated 06/21/2021 images reviewed shows no reversible ischemia. Event monitor dated 09/23/2022 strips reviewed shows paroxysmal atrial fibrillation with RVR noted. 8% burden. Event monitor dated 06/12/2021 strips reviewed shows paroxysmal atrial fibrillation. Total burden 2%. NT-proBNP (pg/mL) Date Value 04/25/2024 1,360 (H) 09/18/2022 300 (H) HTN: Stable on Cardizem 30 every 8 hours. Previously noted to be on lisinopril 20 mg BiD. Off Coreg 6.25 BiD/Cardizem CD due to sinus pause noted. Goals BP < 130/80 stressed. Explained if BP > 130/80, adviced to send us the log. Lifestyle modifications stressed. Dyslidemia: Goal LDL stress << 70 or atleast < 100. Home dose of Lipitor 40 mg daily noted. LDL CHOL Date Value 09/18/2022 140 mg/dL 11/23/2014 209 MG/DL (H) [id number] (mg/dL (calc)) Date Value 02/24/2015 141 (H) There are no current results on file for these tests and/or test for 1 year. Nonobs CAD by cath reviewed which was done on 11/25/2014: Recommend aggressive risk factor reduction stressed. Home dose of Lipitor 40 Rx daily noted. Echocardiogram dated 09/17/2022 images reviewed shows preserved LV systolic function. Normal RV size and function. No significant valve normalities noted. Insufficient TR jet. Echo dated 06/18/2021 images reviewed shows preserved LV systolic function. Mildly dilated ascending artery noted. RVSP normal. No significant valve abnormalities noted. NM stress test dated 06/21/2021 images reviewed shows no reversible ischemia. LDL CHOL Date Value 09/18/2022 140 mg/dL 11/23/2014 209 MG/DL (H) [id number] (mg/dL (calc)) Date Value 02/24/2015 141 (H) T2DM: Follow up PCP. Recommended goal A1c less than 6.5. Last Two A1C Results ([facility], PO[facility], [facility]) Recent Labs 04/25/242115 HGBA1C 9.2* Mild dilated ascending artery: 3.6 cm: In the setting of underlying longstanding high blood pressure. Recommended aggressive blood pressure control to keep blood pressure less than 130/80's. THEODORE:Sleep study dated 10/23/2021 reviewed shows presence of severe obstructive sleep apnea controlled with BiPAP. Recommended compliant with CPAP Rx plan reviewed with the hospitalist team. Primary block sealer: Dr. Santos Thank you for allowing us to participate in the care of Sherrie Hernandez. If you have any questions or concerns please feel free to call our office at [phone]. I would be happy to be of further assistance for Sherrie Hernandez wellbeing. Otoniel Bates MD [employer], Division of Cardiology [facility] - Health History and Physical Notes Date/Time Note Provider Source 2024-04-26 01:51:45 [facility] ADMIT H&P Date of Service: 04/26/2024 CHIEF COMPLAINT: fever, headache, cough Subjective History of Present Illness 67 yo female with pmh of atrial fibrillation (s/p ablation times 2), CVA, depression, HTN, HLD, DMII, uterine cancer who presents to the ED secondary to fever, headache, nonproductive cough, nausea, vomiting, rhinorrhea, body aches, intermittent shortness of breath, decreased oral intake, sore throat, and weakness for the past 3 days. Additional symptoms: left centralized chest pain down to shoulder, left leg pain. In the ED, patient was having frequent NSVT and seen to have hypomagnesemia. ED physician placed patient on amiodarone gtt. PAST MEDICAL HISTORY Past Medical History: Diagnosis Date Atrial fibrillation 2012 on eliquis CVA (cerebral vascular accident) 2016 post procedural after AFib ablation, with residual left hand tingling DEPRESSION Endometrial adenocarcinoma s/p hysterectomy Erythema of gastric antrum erosions in 2008 and 2004 Febrile seizure Hypertension Malignant neoplasm of corpus uteri, except isthmus 2012 s/p hysterectomy, lympth node dissection, radiation, chemotherapy Other and unspecified hyperlipidemia 07/09/2006 Peripheral neuropathy due to chemotherapy Type II or unspecified type diabetes mellitus without mention of complication, not stated as uncontrolled 12/06 Uterine cancer Past Surgical History: Procedure Laterality Date SECTION 1989 LAB ONLY PAP SMEAR-LIQUID BASED 2012 LAPAROSCOPIC APPENDECTOMY 09/13/2013 Surgeon: Radhika Newton MD; [facility] LAPAROSCOPIC ROBOTIC ASSISTED SALPINGO-OOPHORECTOMY 12/17/2012 Surgeon: Reji Barriga [facility]; [facility]: [facility] LAPAROSCOPIC ROBOTIC ASSISTED VAGINAL HYSTERECTOMY 12/17/2012 Surgeon: Reji Barriga [facility]; Location: [facility] LYSIS OF ABDOMINAL ADHESIONS 02/03/2013 Surgeon: Get Whittington MD; Location: [facility] MAMMOGRAM, BILATERAL-DIAGNOSTIC 2012 REMOVAL GALLBLADDER 1997 ROBOTIC ASSISTED LYMPH NODE DISSECTION (SHX) 02/03/2013 Surgeon: Get Whittington MD; [facility]: [facility] TUBAL LIGATION 1989 WIDE LOCAL VULVAR LESION EXCISION 06/13/2014 WIDE LOCAL VULVAR LESION EXCISION N/A 06/13/2014 Surgeon: Get Whittington MD; [facility]: [facility] Family History Problem Relation Age of Onset Other - see comments Brother 40 ETOH abuse Hypertension Mother Diabetes Sister Cancer Sister 62 lung cancer Cancer Father LUNG Stroke Mother Cancer Paternal Aunt 65 one aunt with pancreatic cancer in 60s, one with stomach cancer in 60s ALLERGIES Allergies Allergen Reactions Paclitaxel Rash and Other - See comments atrial fibrillation Latex Rash Adhesive Tape-Silicones Rash Including op site adhesives -- significant rash Metformin Unknown - See comments Chills, hypoglycemia, nausea/vomiting Pindolol Hallucinations MEDICATIONS No current facility-administered medications on file prior to encounter. Current Outpatient Medications on File Prior to Encounter Medication Sig Dispense Refill diltiazem 30 mg tablet Take 1 tablet by mouth every 8 (eight) hours. 90 tablet 3 LISINOPRIL 20 mg tablet TAKE ONE TABLET BY MOUTH EVERY MORNING AND 1 TABLET IN EVENING 180 tablet 1 alendronate 70 mg tablet Take 1 tablet by mouth weekly. diclofenac 75 mg EC tablet Take 1 tablet by mouth in the morning and 1 tablet in the evening. Take with meals. atorvastatin 40 mg tablet Take 1 tablet by mouth at bedtime. 30 tablet 5 estradioL 0.01 % (0.1 mg/gram) vaginal cream Apply a thin layer to affected area twice per week 42.5 g 0 omeprazole 20 mg capsule Take 1 capsule in the morning and 1 capsule in the evening. citalopram 10 mg tablet Take 1 tablet in the morning. glipiZIDE 5 mg tablet Take 1 tablet by mouth in the morning. cyclobenzaprine 10 mg tablet Take 1 tablet by mouth 3 (three) times daily as needed for Muscle Spasms. Also for pain, spine. 50 tablet 1 apixaban 5 mg tablet Take 1 tablet by mouth 2 (two) times daily. 180 tablet 3 coenzyme Q10 100 mg softgel Take 1 capsule by mouth in the morning. empagliflozin 25 mg Tab Take by mouth daily. calcium carbonate-vitamin D3 1,000 mg(2,500 mg)-800 unit Tab Take 1 Tab by mouth daily. 30 Tab 11 .med SOCIAL HISTORY Social History Socioeconomic History Marital status: Tobacco Use Smoking status: Never Passive exposure: Never Smokeless tobacco: Never Substance and Sexual Activity Alcohol use: Yes Alcohol/week: 0.0 standard drinks of alcohol Comment: OCCASIONALLY Drug use: No Sexual activity: Never Partners: Male control/protection: Surgical Comment: Pt's is diabetic and has ED Social History Narrative Has good family support, mom living with her since passed. Has spiritual community at [employer]ism but doesn t go often due to not driving, never learned to drive. 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 Good work support. Pt values health wanting to see great grand daughter grow up and wants to be present to care for mom who is in her 80s. SUBHASH HINSON MD 07/11/2015 9:35 PM Social Determinants of Health Financial Resource Strain: Low Risk (09/17/2022) Overall Financial Resource Strain (CARDIA) Difficulty of Paying Living Expenses: Not very hard Food Insecurity: No Food Insecurity (09/17/2022) Hunger Vital Sign Worried About Running Out of Food in the Last Year: Never true Ran Out of Food in the Last Year: Never true Transportation Needs: No Transportation Needs (09/17/2022) PRAPARE - Transportation Lack of Transportation (Medical): No Lack of Transportation (Non-Medical): No Physical Activity: Insufficiently Active (09/17/2022) Exercise Vital Sign Days of Exercise per Week: 3 days Minutes of Exercise per Session: 30 min Social Connections: Unknown (09/17/2022) Social Connection and Isolation Panel [NHANES] Frequency of Communication with Friends and Family: More than three times a week Marital Status: REVIEW OF SYSTEMS Review of Systems Constitutional: Positive for appetite change (decreased) and fever. Negative for activity change, chills, diaphoresis, fatigue and unexpected weight change. HENT: Positive for rhinorrhea and sore throat. Negative for congestion, dental problem, drooling, ear discharge, ear pain, facial swelling, hearing loss, mouth sores, nosebleeds, postnasal drip, sinus pressure, sneezing, tinnitus, trouble swallowing and voice change. Eyes: Negative. Respiratory: Positive for cough (nonproductive) and shortness of breath (intermittent). Negative for apnea, choking, chest tightness, wheezing and stridor. Breasts: Negative. Cardiovascular: Negative. Gastrointestinal: Positive for nausea and vomiting. Negative for abdominal distention, abdominal pain, anal bleeding, blood in stool, constipation, diarrhea and rectal pain. Genitourinary: Negative. Musculoskeletal: Positive for arthralgias and myalgias. Negative for back pain, gait problem, joint swelling, neck pain and neck stiffness. Skin: Negative. Neurological: Positive for weakness and headaches. Negative for dizziness, tremors, seizures, syncope, facial asymmetry, speech difficulty, light-headedness and numbness. Psychiatric/Behavioral: Negative. Endocrine: Endocrine negative Objective PHYSICAL EXAMINATION Vitals: 04/25/24 2300 04/26/24 0030 04/26/24 0051 04/26/24 0102 BP: (!) 141/78 (!) 140/76 127/82 BP Location: Right arm Pulse: 104 87 89 Resp: 15 12 16 Temp: 37.8 ?C (100 ?F) 36.7 ?C (98.1 ?F) TempSrc: Oral Tympanic SpO2: 95% 95% 97% Weight: 199 lb 12.8 oz (90.6 kg) 199 lb 8 oz (90.5 kg) Height: 5' 5" (1.651 m) 5' 5" (1.651 m) Physical Exam Vitals and nursing note reviewed. Constitutional: General: She is not in acute distress. Appearance: Normal appearance. She is not ill-appearing, toxic-appearing or diaphoretic. HENT: Head: Normocephalic and atraumatic. Right Ear: External ear normal. Left Ear: External ear normal. Nose: Nose normal. Mouth/Throat: Mouth: Mucous membranes are moist. Pharynx: No oropharyngeal exudate or posterior oropharyngeal erythema. Eyes: General: Scleral icterus present. Extraocular Movements: Extraocular movements intact. Conjunctiva/sclera: Conjunctivae normal. Pupils: Pupils are equal, round, and reactive to light. Cardiovascular: Rate and Rhythm: Normal rate and regular rhythm. Pulmonary: Effort: Pulmonary effort is normal. No respiratory distress. Breath sounds: Normal breath sounds. Abdominal: General: Abdomen is flat. There is no distension. Tenderness: There is no guarding. Musculoskeletal: General: Normal range of motion. Cervical back: Normal range of motion and neck supple. Right lower leg: No edema. Left lower leg: No edema. Neurological: Mental Status: She is alert. Psychiatric: Mood and Affect: Mood normal. Behavior: Behavior normal. Thought Content: Thought content normal. Judgment: Judgment normal. LABS/IMAGING - reviewed Left leg duplex: pending Assessment & Plan Sherrie Hernandez is a 68 year old female with PMH as listed above, admitted to the hospital with: COVID infection: not noted to have pneumonia on xray -- Will order for ascorbic acid, vitamin D, and zinc -- Will continue to monitor oxygenation -- Have encourage activity as tolerated and proning if dyspnea -- Oxygen supplementation as needed -- Will continue with remdesivir -- COVID-19 isolation precaution 2. Arrhythmia/NSVT/Atrial fibrillaiton -- Will continue with amiodarone drip -- Will continue with diltiazem -- Will continue with Eliquis 3. Hypomagnesemia: -- Will replace and recheck 4. Left leg pain: -- Ultrasound is pending 5. HTN: -- Will continue with diltiazem -- Will continue with lisinopril 6. Depression: -- Will ontinue with citalopram 7. Diabetes: -- Will continue with glipizide, jardiance, and insulin sliding scale 8. GERD: -- Will continue with protonix 9. HLD: -- Will continue with lipitor Prophylaxis: DVT- Eliquis Code Status: Full Code Estimated LOS: This inpatient admission will likely require greater than or equal to 2 Midnights. Management is not feasible as an outpatient and there is concern for adverse outcomes if not managed in an inpatient setting. Advance care planning discussed for 18 mins with patient at bedside. Surrogate decision maker: Adonis Wilkes (child) - [facility]
[2024-09-06] MEDS ORDERED: DIPHENHYDRAMINE 50 MG/ML VIAL ONE (20:26)
[2024-09-06] MEDS ORDERED: METOCLOPRAMIDE 10 MG/2mL INJ ONE (20:26)
[2024-09-06 20:30] LABS: Absolute Basophils 0.1 K/uL (0-0.5); Absolute Eosinophils 0.2 K/uL (0-0.5); Absolute Lymphocytes (CBC) 2.7 K/uL (0.7-4.9); Absolute Monocytes 0.6 K/uL (0.1-1.3); Absolute Neutrophil 4.2 K/uL (1.8-8.0); Basophils % 1.2 % (0-1.3); Eosinophils % 2.9 % (0-4.4); Hemoglobin 13.9 g/dL (12.0-15.0); Lymphocytes % 34.7 % (15.3-44.8); MCH 30.5 pg (27.0-35.0); MCHC 33.8 g/dL (32.0-36.0); MCV 90.3 fL (80-100); MPV 8.2 fL (7.6-11.3); Monocytes % 8.1 % (3.3-12.3); Neutrophils % 53.1 % (41.7-73.7); Nucleated Red Blood Cells % 0.1 % (0-0); Platelets 219 thou/uL (152-406); RBC Red Blood Cell Count 4.55 M/uL (3.86-4.86); Red Cell Distribution Width 13.8 % (12.1-15.2)
--- NOTE | 2024-09-06 20:50 | RAD REPORT ---
Procedure: Chest Single View HISTORY: Palpitations COMPARISON: March 2024 FINDINGS: The lungs appear clear of acute infiltrate. No significant pleural effusion noted. The heart is mildly enlarged. Pacemaker leads in place.. Central venous catheter with its tip in the SVC IMPRESSION: No acute abnormality is displayed.
--- NOTE | 2024-09-06 20:53 | RAD REPORT ---
Exam:Foot Right 3 View CLINICAL HISTORY: Right foot pain FINDINGS: No fracture or dislocation seen. Large calcaneal spurs Bones appear osteoporotic. Diffuse edema within the subcutaneous tissues
[2024-09-06 21:02] LABS: ALT/SGPT 23 U/L (13-56); Albumin 3.3 g/dL (3.4-5.0); Albumin/Globulin Ratio 0.8 (1.1-1.8); Alkaline Phosphatase 83 U/L (45-117); Anion Gap 6.7 mEq/L (5.0-15.0); BUN Blood Urea Nitrogen 18 mg/dL (7-18); Bicarbonate 30 mEq/L (21-32); Bilirubin Total 0.5 mg/dL (0.2-1.0); Globulin 3.9 g/dL (2.3-3.5); Glomerular Filtration Rate 81 ml/min (=/>90); Glucose Level 210 mg/dL (74-106); Protein, Total 7.2 g/dL (6.4-8.2); Sodium Level 138 mEq/L (136-145); Troponin High Sensitivity 16.5 pg/mL (<58.9)
[2024-09-06 21:05] LABS: AST/SGOT 12 U/L (15-37); Bilirubin Direct < 0.2 mg/dL (0-0.2); Bilirubin Indirect, Calculated 0.3 mg/dL (0.2-0.8); Magnesium 1.9 mg/dL (1.6-2.4); Potassium 3.7 mEq/L (3.5-5.1)
[2024-09-06] MEDS ORDERED: ACETAMINOPHEN 500 MG TAB ONE (21:35)
[2024-09-06] MEDS ORDERED: Magnesium Sulfate 2gm IVPB 2 G/50 ML BAG IV ONE (21:36)
[2024-09-06] MEDS ORDERED: NA CHLORIDE 0.9% 1,000 ML ONE (21:36)
--- NOTE | 2024-09-06 22:44 | EDPHYS ---
Physician Documentation [facility] Name: Edith Hernandez Age: 69 yrs Sex: Female : 1955 Arrival Date: 09/06/2024 Time: 16:17 Bed 3 Private MD: ED Physician Gumaro Antunez HPI: 09/07 01:00 This 69 yrs old Female presents to ER via Ambulatory with complaints of rt Palpitations, Blurred Vision - with lines. 01:00 Patient presents to the ED with an acute onset of palpitations, shortness of breath. rt Patient states that she had zigzag lines in her vision which resolved but then she developed a generalized headache which is not typical for her. The patient denies other acute complaints at this time, symptoms are moderate severity, no other aggravating or alleviating factors.. Historical: - Allergies: 09/06 16:55 No Known Allergies; hb - PMHx: 16:55 Atrial fibrillation; Cancer; Cerebrovascular accident; diabetes mellitus; Hypertensive hb disorder; Stroke Left side defecit; - PSHx: 16:55 section; hysterectomy; pacemaker; hb - Immunization history:: Adult Immunizations not up to date, Client reports receiving the 2nd dose of the Covid vaccine, Flu vaccine is not up to date. - Infectious Disease History:: Denies. - Family history:: not pertinent. - Social history:: Smoking status: Patient denies any tobacco usage or history of. Patient/guardian denies using alcohol, street drugs, IV drugs. ROS: 09/07 01:00 Eyes: Positive for blurry vision, Negative for pain, rt Cardiovascular: Positive for palpitations, Negative for edema, Respiratory: Positive for shortness of breath, Negative for cough, 01:26 Constitutional: Negative for fever, chills, and weight loss, MS/Extremity: Negative for rt injury and deformity, Skin: Negative for injury, rash, and discoloration, Exam: 01:26 Constitutional: This is a well developed, well nourished patient who is awake, alert, rt and in no acute distress. Head/Face: Normocephalic, atraumatic. Chest/axilla: Normal chest wall appearance and motion. Nontender with no deformity. No lesions are appreciated. Cardiovascular: Regular rate and rhythm with a normal S1 and S2. No gallops, murmurs, or rubs. Normal PMI, no JVD. No pulse deficits. Respiratory: Lungs have equal breath sounds bilaterally, clear to auscultation and percussion. No rales, rhonchi or wheezes noted. No increased work of breathing, no retractions or nasal flaring. Abdomen/GI: Soft, non-tender, with normal bowel sounds. No distension or tympany. No guarding or rebound. No evidence of tenderness throughout. Skin: Warm, dry with normal turgor. Normal color with no rashes, no lesions, and no evidence of cellulitis. MS/ Extremity: Pulses equal, no cyanosis. Neurovascular intact. Full, normal range of motion. Neuro: Awake and alert, GCS 15, oriented to person, place, time, and situation. Cranial nerves II-XII grossly intact. Motor strength 5/5 in all extremities. Sensory grossly intact. Cerebellar exam normal. Normal gait. 01:26 ECG was reviewed by the Attending Physician. Vital Signs: 09/06 16:53 BP 187 / 87; Pulse 74; Resp 16; Temp 97.6; Pulse Ox 100% ; Weight 83.91 kg; Height 5 hb ft. 4 in. ; Pain 8/10; 19:42 BP 182 / 99; Pulse 88; Resp 17; Pulse Ox 98% ; jj7 20:30 BP 173 / 78; Pulse 72; Resp 14; Pulse Ox 97% ; jj7 21:30 BP 173 / 85; Pulse 68; Resp 17; Pulse Ox 99% ; jj7 22:27 BP 175 / 112; Pulse 65; Resp 17; Pulse Ox 95% ; jj7 23:03 BP 174 / 86; Pulse 67; Resp 18; Temp 98.1; Pulse Ox 97% ; Pain 0/10; jj7 16:53 Body Mass Index 31.75 (83.91 kg, 162.56 cm) hb 16:53 Pain Scale: Adult hb 23:03 Pain Scale: Adult jj7 MDM: 19:57 Medical Screening Exam initiated rt 09/07 01:26 Differential diagnosis: Migraine, CVA, cranial hemorrhage, dysrhythmia. Data reviewed: rt vital signs, nurses notes. Consideration of Admission/Observation Escalation of care including admission/observation considered. Patient's symptoms have resolved with treatment in the ED. Labs, EKG are reassuring. Given new headache that is atypical for the patient, I did recommend that we obtain CT scan of the head. Unfortunately, CT scan is done at this facility. Recommended transfer to the patient to have CT scan be performed. Patient states that as her symptoms have resolved, she wishes to go home and follow-up as an outpatient. Shared decision making was employed, patient to return if her symptoms worsen or if she changes her mind. She verbalized understanding is comfortable this plan.. I considered the following discharge prescriptions or medication management in the emergency department Medications were administered in the Emergency Department. See MAR. Care significantly affected by the following chronic conditions: Atrial fibrillation. Counseling: I had a detailed discussion with the patient and/or guardian regarding the historical points, exam findings, and any diagnostic results supporting the discharge/admit diagnosis, lab results, the need for outpatient follow up. 09/06 20:03 Order name: Basic Metabolic Panel; Complete Time: 21:08 rt 09/06 20:03 Order name: CBC with Diff; Complete Time: 20:55 rt 09/06 20:03 Order name: LFT's; Complete Time: 21:08 rt 09/06 20:03 Order name: Magnesium; Complete Time: 21:08 rt 09/06 20:03 Order name: Troponin HS; Complete Time: 21:08 rt 09/06 20:03 Order name: XRAY Chest (1 view); Complete Time: 20:55 rt 09/06 20:03 Order name: Foot Right 3 View XRAY; Complete Time: 20:55 rt 09/06 20:03 Order name: Cardiac monitoring; Complete Time: 20:12 rt 09/06 20:03 Order name: EKG - Nurse/Tech; Complete Time: 20:12 rt 09/06 20:03 Order name: IV Saline Lock; Complete Time: 20:12 rt 09/06 20:03 Order name: Labs collected and sent; Complete Time: 20:12 rt 09/06 20:03 Order name: O2 Per Protocol; Complete Time: 20:12 rt 09/06 20:03 Order name: O2 Sat Monitoring; Complete Time: 20:12 rt EC:26 Rate is 74 beats/min. Rhythm is regular, Paced with No ectopy. QRS [place] is Normal. CO rt interval is normal. QRS interval is normal. QT interval is normal. No Q waves. T waves are Normal. Administered Medications: 09/06 20:29 Drug: metoCLOPramide IVP 10 mg IVP once; over 1 to 2 minutes Route: IVP; Site: right [facility] antecubital; 21:42 Follow up: Response: Pain is decreased 20:29 Drug: diphenhydrAMINE IVP 25 mg IVP once Route: IVP; Site: right antecubital; jj7 21:42 Follow up: Response: Pain is decreased j7 21:42 Drug: NS 0.9% IV 1000 ml IV at 1 bolus Per protocol; to be given as a bolus over 60 jj7 minutes Route: IV; Rate: 1 bolus; Site: right antecubital; 22:44 Follow up: IV Status: Completed infusion 21:42 Drug: Acetaminophen PO 1000 mg PO once Route: PO; j 22:46 Follow up: Response: Marked relief of symptoms; Pain is decreased 21:42 Drug: Magnesium Sulfate IVPB 2 grams IVPB once over 2 hrs Route: IVPB; Infused Over: 2 jj7 hrs; Site: right antecubital; 22:47 Follow up: IV Status: Completed infusion Disposition Summary: 09/06/24 22:43 Discharge Ordered Notes: Location: Home rt Problem: new rt Symptoms: have improved rt Condition: Stable rt Diagnosis - Headache rt - Palpitations rt Followup: rt - With: Private Physician - When: 2 - 3 days - Reason: Discharge Instructions: - Discharge Summary Sheet rt - General Headache Without Cause rt - Palpitations rt Forms: - Medication Reconciliation Form rt - Antibiotic Education rt - Prescription Opioid Use rt - Patient Portal Instructions rt - Leadership Thank You Letter rt Signatures: Dispatcher [employer] EDMS Laureen Alvarez RN Villa Anton RN RN jj7 Gumaro Antunez MD MD rt Corrections: (The following items were deleted from the chart) 20:04 20:04 Chest Single View+RAD.RAD.BRZ ordered. EDMS EDMS 20:04 20:04 Foot Right 3 View+RAD.RAD.BRZ ordered. EDMS EDMS 20:04 20:04 Head Brain Wo Cont+CT.RAD.BRZ ordered. EDMS EDMS
--- NOTE | 2024-09-06 22:44 | ER ---
Nurse's Notes [facility] Name: Edith Hernandez Age: 69 yrs Sex: Female : 1955 Arrival Date: 09/06/2024 Time: 16:17 Bed 3 Private MD: Diagnosis: Headache;Palpitations Presentation: 09/06 16:53 Chief complaint: Zig zag lines in vision, left sided chest pain, palpitations, and SOB hb that started while watching television 45 mins ago. Coronavirus screen: At this time, the client does not indicate any symptoms associated with coronavirus-19. Ebola Screen: No symptoms or risks identified at this time. Initial Sepsis Screen: Does the patient meet any 2 criteria? No. Patient's initial sepsis screen is negative. Does the patient have a suspected source of infection? No. Patient's initial sepsis screen is negative. Risk Assessment: Do you want to hurt yourself or someone else? Patient reports no desire to harm self or others. Onset of symptoms was September 06, 2024. 16:53 Method Of Arrival: Ambulatory hb 16:53 Acuity: ZHANG 3 hb Historical: - Allergies: 16:55 No Known Allergies; hb - PMHx: 16:55 Atrial fibrillation; Cancer; Cerebrovascular accident; diabetes mellitus; Hypertensive hb disorder; Stroke Left side defecit; - PSHx: 16:55 section; hysterectomy; pacemaker; hb - Immunization history:: Adult Immunizations not up to date, Client reports receiving the 2nd dose of the Covid vaccine, Flu vaccine is not up to date. - Infectious Disease History:: Denies. - Family history:: not pertinent. - Social history:: Smoking status: Patient denies any tobacco usage or history of. Patient/guardian denies using alcohol, street drugs, IV drugs. Screenin:41 [facility] ED Fall Risk Assessment (Adult) History of falling in the last 3 months, jj7 including since admission No falls in past 3 months (0 pts) Confusion or Disorientation No (0 pts) Intoxicated or Sedated No (0 pts) Impaired Gait No (0 pts) Mobility Assist Device Used No (0 pt) Altered Elimination No (0 pt) Score/Fall Risk Level 0 - 2 = Low Risk Oriented to surroundings, Maintained a safe environment, Educated pt \T\ family on fall prevention, incl call for assistance when getting out of bed, Assessed \T\ reinforced patient's understanding of fall precautions. Abuse screen: Denies threats or abuse. Nutritional screening: No deficits noted. Tuberculosis screening: No symptoms or risk factors identified. Assessment: 19:40 Reassessment: ASSUMED CARE OF PT. PT NOW IN ROOM. NO PAIN OR DISTRESS NOTED. NO CP AT jj7 THIS TIME. General: Appears in no apparent distress. comfortable, Behavior is calm, cooperative, appropriate for age. 19:41 Pain: Denies pain. Neuro: No deficits noted. Cardiovascular: Reports palpitations, jj7 Denies chest pain. EENT: Reports blurred vision. 21:43 Neuro: Reports headache. jj7 Vital Signs: 16:53 BP 187 / 87; Pulse 74; Resp 16; Temp 97.6; Pulse Ox 100% ; Weight 83.91 kg; Height 5 hb ft. 4 in. ; Pain 8/10; 19:42 BP 182 / 99; Pulse 88; Resp 17; Pulse Ox 98% ; jj7 20:30 BP 173 / 78; Pulse 72; Resp 14; Pulse Ox 97% ; jj7 21:30 BP 173 / 85; Pulse 68; Resp 17; Pulse Ox 99% ; jj7 22:27 BP 175 / 112; Pulse 65; Resp 17; Pulse Ox 95% ; jj7 23:03 BP 174 / 86; Pulse 67; Resp 18; Temp 98.1; Pulse Ox 97% ; Pain 0/10; jj7 16:53 Body Mass Index 31.75 (83.91 kg, 162.56 cm) hb 16:53 Pain Scale: Adult hb 23:03 Pain Scale: Adult jj7 ED Course: 16:19 Patient arrived in ED. im 16:51 EKG done. hb 16:55 Triage completed. hb 19:40 Villa Caballero RN is Primary Nurse. jj7 19:40 Patient placed in an exam room, on a stretcher. jj7 19:41 Inserted saline lock: 20 gauge in right antecubital area, using aseptic technique. jj7 Blood collected. Flushed with 10 mL NS. 19:41 Patient has correct armband on for positive identification. Placed in gown. Bed in low jj7 position. Call light in reach. Provided Education on: USE OF CALL STONE. Warm blanket given. 19:56 Gumaro Antunez MD is Attending Physician. rt 20:12 Basic Metabolic Panel Sent. jj7 20:12 CBC with Diff Sent. jj7 20:12 LFT's Sent. jj7 20:12 Magnesium Sent. jj7 20:12 Troponin HS Sent. jj7 20:43 XRAY Chest (1 view) In Process Unspecified. EDMS 20:43 Foot Right 3 View XRAY In Process Unspecified. EDMS 23:01 No provider procedures requiring assistance completed. IV discontinued, intact, jj7 bleeding controlled, No redness/swelling at site. Pressure dressing applied. Administered Medications: 20:29 Drug: metoCLOPramide IVP 10 mg IVP once; over 1 to 2 minutes Route: IVP; Site: right [facility] antecubital; 21:42 Follow up: Response: Pain is decreased jj7 20:29 Drug: diphenhydrAMINE IVP 25 mg IVP once Route: IVP; Site: right antecubital; jj7 21:42 Follow up: Response: Pain is decreased jj7 21:42 Drug: NS 0.9% IV 1000 ml IV at 1 bolus Per protocol; to be given as a bolus over 60 jj7 minutes Route: IV; Rate: 1 bolus; Site: right antecubital; 22:44 Follow up: IV Status: Completed infusion jj7 21:42 Drug: Acetaminophen PO 1000 mg PO once Route: PO; jj7 22:46 Follow up: Response: Marked relief of symptoms; Pain is decreased jj7 21:42 Drug: Magnesium Sulfate IVPB 2 grams IVPB once over 2 hrs Route: IVPB; Infused Over: 2 jj7 hrs; Site: right antecubital; 22:47 Follow up: IV Status: Completed infusion jj7 Medication: 19:41 VIS not applicable for this client. jj7 Outcome: 22:43 Discharge ordered by . rt 23:01 Discharged to home ambulatory, with family, jj7 23:01 Condition: improved 23:01 Discharge instructions given to patient, Instructed on discharge instructions, Demonstrated understanding of instructions, 23:04 Patient left the ED. jj7 Signatures: Dispatcher [employer] EDRI Laureen Alvarez RN RN hb Johnson, Juwairiyah, RN RN jj7 Gumaro Antunez MD MD rt Ina Loaiza Corrections: (The following items were deleted from the chart) 20: 19:41 Inserted saline lock: 20 gauge in left antecubital area, using aseptic technique. jj7 Blood collected. Flushed with 10 mL NS jj7 20:33 19:41 General: Appears in no apparent distress. comfortable, Behavior is calm, jj7 cooperative, appropriate for age, jj7
[2024-09-06 23:19] VITALS: BP 174/86; TEMP 98.1; O2SAT 97
--- NOTE | 2024-09-13 11:07 | EKG ---
Test Date: 2024-09-06 Test Time: 16:51:58 Lay Out Maker: HB MEASUREMENT RESULTS: Intervals: Rate: 74 OR: 166 QRSD: 82 QT: 370 QTc: 410 Geraldine: P: 50 OR: 166 QRS: 53 T: 64 INTERPRETIVE STATEMENTS: Atrial-paced rhythm Abnormal ECG Compared to ECG 03/24/2024 22:10:12 Sinus rhythm no longer present Atrial premature complex(es) no longer present Electronically Signed On 09-13-24 10:59:15 [employer] by Al Rollins
== END 2024-09-06 23:04 | disposition home or self-care (01) ==
LOC: ER 16:17
DX: R00.2 Palpitations (principal); R51.9 Headache, unspecified; H53.8 Other visual disturbances; I10 Essential (primary) hypertension; E11.9 Type 2 diabetes mellitus without complications; I48.11 Longstanding persistent atrial fibrillation; G81.94 Hemiplegia, unspecified affecting left nondominant side; Z86.73 Personal history of transient ischemic attack (TIA), and cerebral infarction without residual deficits; Z95.0 Presence of cardiac pacemaker
CPT/HCPCS: 96365; 93005; 85025; 80048; 36415; 83735; 80076; 84484; 71045; 73630; 96375; 99284; J3475; J2765; J1200; J7030

== ENCOUNTER 2024-09-16 16:17 | Emergency (ER) | payer OTHER ==
--- OUTSIDE RECORDS SUMMARY | 2024-09-16 16:25 | XMS REPORT | Continuity of Care Document ---
Author Name Unknown Address [address] [facility] [place]. 1 [id number] [facility] thconnect Address [address] [facility]. 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 Role Phone Sushila Babb Primary Care Physician [phone] ALAN MCCLAIN Attending Clinician Unavail able ALAN MCCLAIN Attending Clinician Unavail Alan Izaguirre MD Attending Clinician Shahram Marshall Attending Clinician [phone] SHAHRAM COLEY Attending Clinician Unavailable SHAHRAM COLEY Attending Clinician Unavailable LILI GARCIAS Attending Clinician Unavailable Lili Garcias MD Attending Clinician [phone] LOTTIE TRUONG Attending Clinician UnavailLOTTIE Wayne Attending Clinician UnavailNiya Morales RN Attending Clinician Unavailable LUCY LYNN Attending Clinician Unavailable Dusitn Maharaj MD Attending Clinician [phone] Lucy Lynn DO Attending Clinician [phone] Shira Salgado MD Attending Clinician [phone] , [facility] Bed Attending Clinician Unavail Lottie Chong MD Attending Clinician [phone] Get Whittington MD Attending Clinician [phone] ALEXEY CLARKE Attending Clinician Unavailable JEAN ARROYO ALEXEY Attending Clinician Unavailable Doctor Unassigned, [place] Attending Clinician U aby Bates MD, Bruce TannerHDrew Attending Clinician + [phone] RICARDO LUJAN Attending Clinician Unavailable RICARDO LUJAN Attending Clinician Unavailable DELMI MENDOZA Attending Clinician Unav ailDELMI Nathan Attending Clinician Unav ailBRUCE Adams.HDrew Attending Clinician Unavailthuan ESTEBAN, EDUARDO Attending Clinician Unavailable 1, [facility] Attending Clinician Unavail able Harmeet TOVAR, Lottie Decker Attending Clinician + [phone] KIRILL ALVARADO Attending Clinician Unavailabl ORLANDO Espino Attending Clinician Unavailable ORLANDO EDWARD Attending Clinician Unavailable Carlito TOVAR, Eduardo Attending Clinician [phone] Kinsey Banegas MD Attending Clinician [phone] Pob, [facility] Lab Main Attending Clinician Unavailabl altaf George [facility], Brian Aceves Attending Clinici an Cruz Huddleston MD Attending Clinician [phone] Niranjan Fisher RN Attending Clinician Unavail able Jacki Samuels DO Attending Clinician [phone] Russell Paul MD Attending Clinician [phone] Lucy Lynn DO Attending Clinician [phone] RADIOLOGY Attending Clinician Unavailable ALAN HARDING Attending Clinician Unavailabl e 2, [facility] Attending Clinician Unavailable CHATO CHAUHAN Attending Clinician Chato Haley MD Attending Clinician + [phone] IGNACIA CRUZ Attending Clinician Unavailable Only, [facility] Test Attending Clinician Unavailable Alan Harding PA-C Attending Clinician [phone] Neida [facility], Clint Attending Clinician [phone] Niya Smith RN Attending Clinician Unavailable RUSSELL PAUL Attending Clinician Unavailable ALBINA FULLER Attending Clinician Unavailable Albina Fuller PA-C Attending Clinician [phone] Kellie Barfield MD Attending Clinician + [phone] Alan Mcclain MD Attending Clinician SHAHRAM COLEY Admitting Clinician Unavailable ALAN MCCLAIN Admitting Clinician Unavail able SHIRA SALGADO Admitting Clinician Unavailable Shira Salgado MD Admitting Clinician [phone] ALEXEY CLARKE Admitting Clinician Unavailable DELMI MENDOZA Admitting Clinician Unav sivaable EDUARDO ESTEBAN Admitting Clinician Unavailable KIRILL ALVARADO Admitting Clinician Unavaildave Esteban MD, Eduardo Admitting Clinician [phone] RUSSELL PAUL Admitting Clinician Unavailable Russell Paul MD Admitting Clinician [phone] CHATO CHAUHAN Admitting Clinician UnaIGNACIA Linares Admitting Clinician Unavailable Payers Payer Name Policy Type Policy Number Effective Date Expirati on Date Source [employer] TOTAL C[employer] MEDICARE HMO DSNP [id number] 2020 00:00:00 [facility] DUAL COMP HMO D FORMERLY [facility] [id number] 2021 00:00:00 2023 00:00:00 [place] [id number] 2018 00:00:00 2022 00:00:00 MEDICAID DUAL COMPLETE HMO DSNP [facility] [id number] 2022 00:00:00 2022 00:00:00 Problems Condition Name Condition Details Condition Category Status Onset Date Resolution Date Last Treatment Date Treating Clinician Comments Source Nonsustain ed ventricula r tachycardi a Nonsustain ed ventricula r tachycardi a Disease Active 04-27 00:00: 00 [facility] Flu-like symptoms Flu-like symptoms Disease Active 04-25 00:00: 00 [facility] S/P placement of cardiac pacemaker S/P placement of cardiac pacemaker Disease Active 3-09 00:00: 00 [facility] History of CVA (cerebrova scular accident) without residual deficits History of CVA (cerebrova scular accident) without residual deficits Disease Active 09-18 00:00: 00 [facility] Nonobstruc tive atheroscle rosis of coronary artery Nonobstruc tive atheroscle rosis of coronary artery Disease Active 09-18 00:00: 00 [facility] THEODORE (obstructi ve sleep apnea) THEODORE (obstructi ve sleep apnea) Disease Active 09-18 00:00: 00 [facility] Atrial fibrillati on with RVR Atrial fibrillati on with RVR Disease Active 09-16 00:00: 00 [facility] A-fib A-fib Disease Active 10-25 00:00: 00 [facility] 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 Disease Active 2020-09 00:00: 00 [facility] Paroxysmal atrial fibrillati on with RVR Paroxysmal atrial fibrillati on with RVR Disease Active 2020-09 00:00: 00 [facility] Obesity (BMI 30-39.9) Obesity (BMI 30-39.9) Disease Active 2020-09 00:00: 00 [facility] Elevated brain natriureti c peptide (BNP) level Elevated brain natriureti c peptide (BNP) level Disease Active 2020-09 00:00: 00 [facility] Elevated brain natriureti c peptide (BNP) level Elevated brain natriureti c peptide (BNP) level Disease Active 2020-09 00:00: 00 [facility] Pancreatit is, unspecifie d pancreatit is type Pancreatit is, unspecifie d pancreatit is type Disease Active 2020-09 00:00: 00 [facility] Decreased coordinati on Decreased coordinati on Disease Active 2015-09 00:00: 00 [facility] Decreased pinch strength Decreased pinch strength Disease Active 2015-09 00:00: 00 [facility] 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 left 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 Disease Active 2015-09 00:00: 00 [facility] Decreased activities of daily living (ADL) Decreased activities of daily living (ADL) Disease Active 2015-09 00:00: 00 [facility] Cerebrovas cular accident (CVA) due to embolism of right carotid artery Cerebrovas cular accident (CVA) due to embolism of right carotid artery Disease Active 2015-09 00:00: 00 [facility] Gait abnormalit y Gait abnormalit y Disease Active 2015-09 00:00: 00 [facility] Weakness of both lower extremitie s Weakness of both lower extremitie s Disease Active 2015-09 00:00: 00 [facility] Cerebrovas cular accident (CVA) due to embolism of right carotid artery Cerebrovas cular accident (CVA) due to embolism of right carotid artery Disease Active 2015-09 00:00: 00 [facility] Weakness of both lower extremitie s Weakness of both lower extremitie s Disease Active 2015-09 00:00: 00 [facility] Left hand weakness Left hand weakness Disease Active 04-24 00:00: 00 [facility] S/P ablation of atrial fibrillati on S/P ablation of atrial fibrillati on Disease Active 04-23 00:00: 00 [facility] Pre-syncop e Pre-syncop e Disease Active 03-06 00:00: 00 [facility] History of endometria l cancer History of endometria l cancer Disease Active 10-01 00:00: 00 [facility] Back pain Back pain Disease Active 03-26 00:00: 00 [facility] Chest pain Chest pain Disease Active 03-26 00:00: 00 [facility] Atrial fibrillati on Atrial fibrillati on Disease Active 03-09 00:00: 00 [facility] DONNELLY (dyspnea on exertion) DONNELLY (dyspnea on exertion) Disease Active 02-09 00:00: 00 [facility] Malignant neoplasm of corpus uteri, except isthmus Malignant neoplasm of corpus uteri, except isthmus Disease Active 12-24 00:00: 00 [facility] Simple obesity Simple obesity Disease Active 11-25 00:00: 00 [facility] Type 2 diabetes mellitus without complicati ons Type 2 diabetes mellitus without complicati ons Disease Active 12-21 00:00: 00 Overview: Formattin g of this note might be different from the original. ICD10 Diagnosis Term Ambulatory Service Representative Utility [facility] Type 2 diabetes mellitus with other specified complicati on Type 2 diabetes mellitus with other specified complicati on Disease Active 12-21 00:00: 00 Overview: Formattin g of this note might be different from the original. ICD10 Diagnosis Term Ambulatory Service Representative Utility [facility] HLD (hyperlipi demia) HLD (hyperlipi demia) Disease Active 2005-09 00:00: 00 Overview: Formattin g of this note might be different from the original. ICD10 Diagnosis Term Ambulatory Service Representative Utility [facility] Dyslipidem ia Dyslipidem ia Disease Active 2005-09 00:00: 00 Overview: Formattin g of this note might be different from the original. ICD10 Diagnosis Term Ambulatory Service Representative Utility [facility] Essential hypertensi on, benign Essential hypertensi on, benign Disease Active 05-21 00:00: 00 [facility] Dysthymic disorder Dysthymic disorder Disease Active 05-21 00:00: 00 [facility] Essential hypertensi on Essential hypertensi on Disease Active 05-21 00:00: 00 [facility] Varicose veins of lower extremitie s Varicose veins of lower extremitie s Disease Active 05-08 00:00: 00 [facility] Abdominal pain, left lower quadrant Abdominal pain, left lower quadrant Disease Resolve d 2014-09 00:00: 00 2016-07-10 00:00:00 2016-07-10 12:28:50 [facility] Abdominal pain Abdominal pain Disease Resolve d 01-25 00:00: 00 2016-07-10 00:00:00 2016-07-10 12:28:47 [facility] Fever and chills Fever and chills Disease Resolve d 5- 00:00: 00 2016-07-10 00:00:00 2016-07-10 12:28:57 [facility] Atypical chest pain Atypical chest pain Disease Resolve d 3- 00:00: 00 2016-07-10 00:00:00 2016-07-10 12:28:31 [facility] Acute appendicit is Acute appendicit is Disease Resolve d 1-13 00:00: 00 2016-07-10 00:00:00 2016-07-10 12:28:42 [facility] Diabetes mellitus Diabetes mellitus Disease Resolve d 03-09 00:00: 00 2013-05-13 00:00:00 [facility] Pneumonia Pneumonia Disease Resolve d 6-11 00:00: 00 2013-05-13 00:00:00 2013-05-13 13:45:16 [facility] Uterine polyp Uterine polyp Disease Resolve d 4-03 00:00: 00 2013-05-13 00:00:00 2013-05-13 13:45:26 [facility] Postmenopa usal bleeding Postmenopa usal bleeding Disease Resolve d 3-27 00:00: 00 2013-05-13 00:00:00 2013-05-13 13:45:29 [facility] Elevated blood pressure reading without diagnosis of hypertensi on Elevated blood pressure reading without diagnosis of hypertensi on Disease Resolve d 05-08 00:00: 00 2012-12-23 00:00:00 2012-12-23 09:27:09 [facility] Allergies, Adverse Reactions, Alerts Allergy Name Allergy Type Status Severity Reaction(s) Onset Date Inactive Date Treating Clinician Comments Source Latex Propensi ty to adverse reaction s Active Rash 04-21 00:00: 00 [facility] LATEX DRUG INGREDI Active Med Rash 04-21 00:00: 00 [facility] METFORMI N DRUG INGREDI Active Unknown-Cmnt 2013-09 00:00: 00 [facility] Metformi n Propensi ty to adverse reaction s Active Unknown - See comments 2013-09 00:00: 00 Chills, hypoglyce ashley, nausea/vo miting [facility] PINDOLOL DRUG INGREDI Active Hallucinates 04-21 00:00: 00 [facility] Pindolol Propensi ty to adverse reaction s Active Hallucinatio ns 04-21 00:00: 00 [facility] PACLITAX EL DRUG INGREDI Active High Rash 03-09 00:00: 00 [facility] Paclitax el Propensi ty to adverse reaction s to drug Active Other - See comments 03-09 00:00: 00 atrial fibrillat ion [facility] Adhesive Tape-Jaymie icones Propensi ty to adverse reaction s Active Rash 02-19 00:00: 00 Including op site adhesives -- significa nt rash [facility] ADHESIVE TAPE-JAYMIE ICONES DRUG Active Rash 02-19 00:00: 00 [facility] Social History Social Habit Start Date Stop Date Quantity Comments Source History SDOH Social Connections Get Together [facility] History SDOH Social Connections Muslim [facility] History SDOH Social Connections Membership [facility] History SDOH Social Connections Meetings [facility] Gender identity [facility] Alcoholic beverage intake 2024-04-26 00:00:00 2024-04-26 00:00:00 0 /d [facility] History of Social function 2024-04-23 00:00:00 2024-04-23 00:00:00 [facility] Exposure to SARS-CoV-2 (event) 2022-12-16 00:00:00 2022-12-26 13:31:00 Not sure [facility] Tobacco use and exposure 2022-11-07 00:00:00 2022-11-07 00:00:00 Smokeless tobacco non-user [facility] Alcohol intake 2022-11-07 00:00:00 2022-11-07 00:00:00 0 /d [facility] History SDOH Social Connections Phone 2022-09-17 00:00:00 2022-09-17 00:00:00 5 [facility] History SDOH Social Connections Living 2022-09-17 00:00:00 2022-09-17 00:00:00 4 [facility] History SDOH Physical Activity DPW 2022-09-17 00:00:00 2022-09-17 00:00:00 3 [facility] History SDOH Physical Activity MPS 2022-09-17 00:00:00 2022-09-17 00:00:00 3 [facility] History SDOH Financial 2022-09-17 00:00:00 2022-09-17 00:00:00 4 [facility] History SDOH Food Worry 2022-09-17 00:00:00 2022-09-17 00:00:00 1 [facility] History SDOH Food Scarcity 2022-09-17 00:00:00 2022-09-17 00:00:00 1 [facility] History SDOH Transport Med 2022-09-17 00:00:00 2022-09-17 00:00:00 2 [facility] History SDOH Transport Non-Med 2022-09-17 00:00:00 2022-09-17 00:00:00 2 [facility] History SDOH Alcohol Frequency 2022-09-17 00:00:00 2022-09-17 00:00:00 1 [facility] History SDOH Alcohol Std Drinks 2022-09-17 00:00:00 2022-09-17 00:00:00 0 [facility] History SDOH Alcohol Binge 2022-09-17 00:00:00 2022-09-17 00:00:00 1 [facility] Alcohol Comment 2008-01-17 00:00:00 2008-01-17 00:00:00 OCCASIONALLY [facility] Sex assigned at 1955 00:00:00 1955 00:00:00 [facility] Smoking Status Start Date Stop Date Source Never smoked tobacco [facility] Medications Ordered Medication Name Filled Medication Name Start Date Stop Date Current Medication? Ordering Clinician Indication Dosage Frequency Signature (SIG) Comments Components Source cyclobenzap rine 10 mg tablet 2023-09 00:00: 00 Yes [id number] 10mg Take 1 tablet by mouth 3 (three) times daily as needed for Muscle Spasms. Also for pain, spine. [facility] insulin lispro (human) (HumaLOG U-100) injection 6 Units 2023-09 02:00: 00 07-09 02:09 :00 No 6U 6 Units, Subcutaneo us, ONCE, 1 dose, On [facility] 07/08/24 at 2000, Routine [facility] acetaminoph en (TYLENOL) tablet 1,000 mg 2023-09 00:00: 00 07-09 00:25 :00 No 1000mg 1,000 mg, Oral, ONCE NOW, 1 dose, On Kirti 07/08/24 at 1800, Routine [facility] metoclopram kassi HCl (REGLAN) injection 5 mg 2023-09 23:15: 00 07-09 00:26 :00 No 5mg 5 mg, Slow IV Push, ONCE, 1 dose, On Kirti 07/08/24 at 1715, SANG [facility] ondansetron 4 mg disintegrat ing tablet 2023-09 00:00: 00 07-08 00:00 :00 Yes [id number] 4mg Take 1 tablet by mouth every 8 (eight) hours as needed for Nausea and Vomiting (N/V). [facility] nitroglycer in 0.4 mg sublingual tablet 05-24 07:46: [address] 1 tablet under the tongue every 5 (five) minutes as needed for Chest pain. [facility] methocarbam oL 750 mg tablet 05-24 07:46: 35 Yes 750mg Take 1 tablet by mouth 4 (four) times daily. [facility] meloxicam 15 mg tablet 05-24 07:46: 35 Yes 15mg Take 1 tablet by mouth once daily as needed. [facility] insulin degludec (TRESIBA FLEXTOUCH U-100) 100 unit/mL (3 mL) InPn 05-24 07:46: 35 Yes INJECT UP TO A MAX OF 80 UNITS UNDER THE SKIN EVERY DAY. for 36 [facility] FARXIGA 10 mg tablet 05-24 07:46: 35 Yes 10mg Take 1 tablet by mouth in the morning. [facility] amLODIPine 10 mg tablet 05-24 07:46: 35 Yes 10mg Take 1 tablet by mouth in the morning. [facility] traMADoL 50 mg tablet 05-24 07:46: 35 08-01 00:00 :00 No 100mg Take 2 tablets by mouth every 6 (six) hours as needed. [facility] MOUNJARO 5 mg/0.5 mL subcutaneou s injection 05-18 00:00: 00 Yes 5mg inject 5 mg under the skin weekly. [facility] MOUNJARO 2.5 mg/0.5 mL subcutaneou s injection 05-17 00:00: 00 Yes INJECT 2.5 MG UNDER THE SKIN EVERY WEEK [facility] traMADoL (ULTRAM) tablet 50 mg 04-28 14:14: 46 Yes 50mg 50 mg, Oral, Q6HPRN, Starting on Fri04/28/24 at 0914, Until Discontinu ed, Routine, Pain (scale 7-10) [facility] amiodarone 200 mg tablet 04-28 00:00: 00 05-29 04:59 :00 No [id number] 200mg Take 1 tablet by mouth in the morning for 30 days. [facility] remdesivir 100 mg in NaCl 0.9% (NS) 100 mL MINI-BAG 04-27 21:00: 00 05-01 20:59 :00 No 100mg 100 mg, IV Infusion, DAILY AT 1600, 4 doses, First dose on Fri04/27/24 at 1600, Last dose on Fri04/30/24 at 1600, Administer over 60 Minutes, 100 mL, Is the patient mechanical ly ventilated ? NO [facility] KCL (KLOR-CON M20) tablet 40 mEq 04-27 13:00: 00 04-28 12:59 :00 No 40meq 40 mEq, Oral, BID, 3 doses, First dose on Fri04/27/24 at 0800, Last dose on Fri04/28/24 at 0800, Routine [facility] atorvastati n (LIPITOR) tablet 40 mg 04-27 02:00: 00 Yes 40mg 40 mg, Oral, QHS, First dose on Fri04/26/24 at 2100, Until Discontinu ed, Routine [facility] amiodarone (PACERONE) tablet 200 mg 04-27 01:00: 00 Yes 200mg 200 mg, Oral, BID, First dose on Fri04/26/24 at 2000, Until Discontinu ed, Routine [facility] cholecalcif luis a (vitamin D3) tablet 1,000 Units 04-26 14:00: 00 Yes 1000U 1,000 Units, Oral, DAILY, First dose on Fri04/26/24 at 0900, Until Discontinu ed, Routine [facility] lisinopriL (PRINIVIL,Z ESTRIL) tablet 20 mg 04-26 14:00: 00 Yes 20mg 20 mg, Oral, DAILY, First dose on Fri04/26/24 at 0900, Until Discontinu ed, Routine [facility] empaglifloz in (JARDIANCE) tablet 25 mg 04-26 14:00: 00 Yes 25mg 25 mg, Oral, DAILY, First dose on Fri04/26/24 at 0900, Until Discontinu ed, Routine, Is this a home medication ? No [facility] citalopram (CELEXA) tablet 10 mg 04-26 14:00: 00 Yes 10mg 10 mg, Oral, DAILY, First dose on Fri04/26/24 at 0900, Until Discontinu ed, Routine [facility] glipiZIDE (GLUCOTROL) tablet 5 mg 04-26 14:00: 00 04-26 19:38 :41 No 5mg 5 mg, Oral, DAILY, First dose on Fri04/26/24 at 0900, Until Discontinu ed, Routine [facility] ascorbic acid (vitamin C) (VITAMIN C) tablet 500 mg 04-26 13:00: 00 Yes 500mg 500 mg, Oral, BID, First dose on Fri04/26/24 at 0800, Until Discontinu ed, Routine [facility] zinc sulfate (ORAZINC) capsule 50 mg 04-26 13:00: 00 Yes 50mg 50 mg, Oral, TID, First dose on Fri04/26/24 at 0800, Until Discontinu ed, Routine [facility] apixaban (ELIQUIS) tablet 5 mg 04-26 13:00: 00 Yes 5mg 5 mg, Oral, BID, First dose on Fri04/26/24 at 0800, Until Discontinu ed, Routine, Indication s: Non-Valvul ar Atrial Fibrillati on [facility] Sliding Scale Insulin-Reg ular 04-26 12:30: 00 Yes Subcutaneo us, AC+HS, First dose on Fri04/26/24 at 0730, Until Discontinu ed, Routine [facility] pantoprazol e (PROTONIX) EC tablet 40 mg 04-26 11:00: 00 Yes 40mg 40 mg, Oral, QAM-0600, First dose on Fri04/26/24 at 0600, Until Discontinu ed [facility] diltiazem (CARDIZEM) tablet 30 mg 04-26 11:00: 00 Yes 30mg 30 mg, Oral, Q8H, First dose on Fri04/26/24 at 0600, Until Discontinu ed, Routine [facility] cyclobenzap rine (FLEXERIL) tablet 10 mg 04-26 07:29: 47 Yes 10mg 10 mg, Oral, TIDPRN, Starting on Fri04/26/24 at 0229, Until Discontinu ed, Routine, Muscle Spasms [facility] amiodarone 150 mg/100 mL (NEXTERONE) RTU infusion 150 mg 04-26 04:45: 00 04-26 04:49 :00 No 150mg 150 mg, IV Piggyback, ONCE, 1 dose, On Fri04/25/24 at 2345, Administer over 10 Minutes, 100 mL [facility] magnesium sulfate in D5W 1 gram/100 mL RTU IV Piggyback 1 g 04-26 04:30: 00 04-26 04:49 :00 No 1g 1 g, IV Piggyback, ONCE, 1 dose, On Fri04/25/24 at 2330, Administer over 60 Minutes, 100 mL [facility] glucagon HCL injection 1 mg 04-26 04:24: 46 Yes 1mg [facility] dextrose 50 % in water (D50W) injection 25 mL 04-26 04:24: 45 Yes 25mL [facility] ondansetron (ZOFRAN (PF)) injection 4 mg 04-26 04:24: 35 Yes 4mg 4 mg, Slow IV Push, Q6HPRN, Starting on Fri04/25/24 at 2324, Until Discontinu ed, Routine, Nausea and Vomiting (N/V) [facility] traMADoL (ULTRAM) tablet 50 mg 04-26 04:24: 27 04-28 04:23 :27 No 50mg 50 mg, Oral, Q8HPRN, Starting on Fri04/25/24 at 2324, Until Fri04/27/24 at 2323, Routine, Pain (scale 4-6) [facility] acetaminoph en (TYLENOL) tablet 650 mg 04-26 04:24: 25 Yes 650mg 650 mg, Oral, Q6HPRN, Starting on Fri04/25/24 at 2324, Until Discontinu ed, Routine, Pain (scale 1-3) [facility] NaCl 0.9% (NS) bolus infusion 1,000 mL 04-26 04:00: 00 04-26 04:39 :00 No 1000mL at 999 mL/hr, 1,000 mL, IV Infusion, ONCE, 1 dose, On 04/25/24 at 2300, STAT [facility] ondansetron (ZOFRAN (PF)) injection 4 mg 04-26 03:00: 00 04-26 02:27 :00 No 4mg 4 mg, Slow IV Push, ONCE, 1 dose, [facility]24 [facility] 2200[facility] 975 mg 04-26 03:00: 00 04-26 02:27 :00 No 975mg 975 mg, Oral, ONCE, 1 dose, On 04/25/24 at 2200, [facility] BD INSULIN PEN NEEDLE UF 31 gauge x 5/16" Ndle 04-06 00:00: 00 Yes USE DIRECTED ONCE DAILY [facility] FREESTYLE MARGOT 3 SENSOR Annette 04-05 00:00: 00 Yes USE 1 SENSOR DIRECTED UNDER THE SKIN EVERY 14 DAYS [facility] oxybutynin XL 5 mg 24 hr tablet 04-05 00:00: 00 07-05 05:59 :00 No 5mg Take 1 tablet by mouth in the morning. [facility] enoxaparin (LOVENOX) 100 mg/mL injection 13 00:00: 00 02-14 04:59 :00 No [id number] 90mg inject 0.9 mL under the skin every 12 (twelve) hours for 2 days. [facility] diltiazem 30 mg tablet 01-31 00:00: 00 Yes [id number] 30mg Take 1 tablet by mouth every 8 (eight) hours. [facility] LISINOPRIL 20 mg tablet 01-09 00:00: 00 Yes TAKE ONE TABLET BY MOUTH EVERY MORNING AND 1 TABLET IN EVENING [facility] empaglifloz in 25 mg Tab 12-18 15:19: 50 Yes Take by mouth daily. [facility] alendronate 70 mg tablet 12-18 15:19: 50 Yes 70mg Take 1 tablet by mouth weekly. [facility] diclofenac 75 mg EC tablet 12-18 15:19: 50 Yes 75mg Take 1 tablet by mouth in the morning and 1 tablet in the evening. Take with meals. [facility] doxycycline hyclate (Vibramycin ) capsule 100 mg 11-09 00:00: 00 11-15 22:59 :00 No [id number] 100mg 100 mg, Oral, Q12HA2, 14 doses, First dose on Fri11/08/22 at 1800, Last dose on Fri11/15/22 at 0600, SANG
Re ason for Anti-Infec tive: Surgical Prophylaxi s
Surgi kin Prophylaxi s: Cardiothor acic
Du ration of therapy: within 24 hours of surgery [facility] empaglifloz in 25 mg Tab 11-08 19:04: 14 Yes Take by mouth daily. [facility] alendronate 70 mg tablet 11-08 19:04: 14 Yes 70mg Take 1 tablet by mouth weekly. [facility] diclofenac 75 mg EC tablet 11-08 19:04: 14 Yes 75mg Take 1 tablet by mouth in the morning and 1 tablet in the evening. Take with meals. [facility] coenzyme Q10 100 mg softgel 11-08 19:04: 14 04-26 00:00 :00 No 100mg Take 1 capsule by mouth in the morning. [facility] loratadine 10 mg capsule 11-08 19:04: 14 04-23 00:00 :00 No Take by mouth as needed. [facility] empaglifloz in (JARDIANCE) tablet 25 mg 11-08 15:00: 00 Yes [id number] 25mg 25 mg, Oral, DAILY, First dose [...] meet the criteria for inpatient ordering? Yes [facility] citalopram (CELEXA) tablet 10 mg 11-08 15:00: 00 Yes [id number] 10mg 10 mg, Oral, DAILY, First dose on Fri11/08/22 at 0900, Until Discontinu ed, Routine [facility] vancomycin 1250 mg in NS 250 mL RTU IV Piggyback 1,250 mg 11-08 08:00: 00 11-08 20:49 :00 No [id number] 1250mg 1,250 mg, IV Piggyback, Q12H ABX, 2 doses, First dose on Fri11/08/22 at 0200, Last dose on Fri11/08/22 at 1400, Administer over 90 Minutes, 250 mL, CV Recovery to Floor
R corie for Anti-Infec tive: Surgical Prophylaxi s
Surgi kin Prophylaxi s: Cardiothor acic
Du ration of therapy: within 24 hours of surgery [facility] HYDROcodone -acetaminop hen (NORCO 5) 5-325 mg tablet 1 tablet 11-08 05:09: 59 Yes [id number] 1{tbl} 1 tablet, Oral, Q6HPRN, 2 doses, Starting on Fri11/07/22 at 2309, Until Discontinu ed, Routine, Pain (scale 7-10), Pain (scale 4-6) [facility] diltiazem (CARDIZEM) tablet 30 mg 11-08 04:00: 00 Yes [id number] 30mg 30 mg, Oral, Q8H, First dose on Fri11/07/22 at 2200, Until Discontinu ed, Routine [facility] atorvastati n (LIPITOR) tablet 40 mg 11-08 03:00: 00 Yes [id number] 40mg 40 mg, Oral, QHS, First dose on Fri11/07/22 at 2100, Until Discontinu ed, Routine [facility] omeprazole (PRILOSEC) capsule 20 mg 11-08 02:00: 00 Yes [id number] 20mg 20 mg, Oral, BID, First dose on Kirti 11/07/22 at 2000, Until Discontinu ed, Routine [facility] lisinopriL (PRINIVIL,Z ESTRIL) tablet 20 mg 11-08 02:00: 00 Yes [id number] 20mg 20 mg, Oral, BID, First dose on Kirti 11/07/22 at 2000, Until Discontinu ed, Routine [facility] HYDROcodone -acetaminop hen (NORCO 5) 5-325 mg tablet 1 tablet 11-08 00:45: 00 11-07 23:51 :00 No [id number] 1{tbl} 1 tablet, Oral, ONCE, 1 dose, On Kirti 11/07/22 at 1845, Routine [facility] doxycycline hyclate 100 mg capsule 11-08 00:00: 00 11-16 04:59 :00 No [id number] 100mg Take 1 capsule by mouth every 12 (twelve) hours for 7 days. [facility] cyclobenzap rine (FLEXERIL) tablet 10 mg 11-07 22:17: 45 Yes [id number] 10mg 10 mg, Oral, TIDPRN, Starting on Kirti 11/07/22 at 1617, Until Discontinu ed, Routine, Muscle Spasms [facility] iohexol (OMNIPAQUE 300-100 mL) injection 11-07 21:55: 00 Yes ONCE INTRA PROCEDURE, Starting on Kirti 11/07/22 at 1555, Until Discontinu ed, Routine, CV Intraproce dure [facility] lidocaine 1% (PF) (XYLOCAINE) injection 11-07 20:42: 02 11-07 21:59 :55 No ONCE INTRA PROCEDURE, Starting on Kirti 11/07/22 at 1442, Until Kirti 11/07/22 at 1559, Routine, CV Intraproce dure [facility] vancomycin 1000 mg in NS 200 mL RTU IV Piggyback 11-07 20:35: 00 11-07 20:30 :00 No CONTINUOUS PRN, Starting on Kirti 11/07/22 at 1435, Until Kirti 11/07/22 at 1430, Administer over 60 Minutes, CV Intraproce dure [facility] midazolam (VERSED) injection 11-07 20:30: 58 11-07 21:59 :55 No ONCE INTRA PROCEDURE, Starting on Kirti 11/07/22 at 1430, Until Kirti 11/07/22 at 1559, Routine, CV Intraproce dure [facility] FENTanyl PF (SUBLIMAZE (PF)) injection 11-07 20:30: 42 11-07 21:59 :55 No ONCE INTRA PROCEDURE, Starting on Kirti 11/07/22 at 1430, Until Kirit 11/07/22 at 1559, Routine, CV Intraproce dure [facility] coenzyme Q10 100 mg softgel 10-03 14:57: 35 Yes 100mg Take 100 mg by mouth daily. [facility] coenzyme Q10 100 mg softgel 09-23 13:55: 38 Yes 100mg Take 100 mg by mouth daily. [facility] atorvastati n 40 mg tablet 09-23 00:00: 00 Yes [id number] 9109 40mg Take 1 tablet by mouth at bedtime. [facility] diltiazem 30 mg tablet 09-23 00:00: 00 01-31 00:00 :00 No [id number] 9109 30mg Take 1 tablet by mouth every 8 (eight) hours. [facility] empaglifloz in 25 mg Tab 09-19 16:16: 02 Yes Take by mouth daily. [facility] loratadine 10 mg capsule 09-19 16:16: 02 Yes Take by mouth as needed. [facility] coenzyme Q10 100 mg softgel 09-19 16:16: 02 Yes 100mg Take 100 mg by mouth daily. [facility] diltiazem 30 mg tablet 09-19 00:00: 00 09-23 00:00 :00 No [id number] 9109 30mg Take 1 tablet by mouth every 8 (eight) hours for 30 days. [facility] diltiazem (CARDIZEM) tablet 30 mg 09-18 20:00: 00 Yes 30mg 30 mg, Oral, Q8H, First dose (after last modificati on) on Fri09/18/22 at 1400, Until Discontinu ed, Routine [facility] atorvastati n (LIPITOR) tablet 40 mg 09-18 03:00: 00 Yes 40mg 40 mg, Oral, QHS, First dose on Fri09/17/22 at 2100, Until Discontinu ed, Routine [facility] omeprazole (PRILOSEC) capsule 20 mg 09-17 15:00: 00 Yes 20mg 20 mg, Oral, DAILY, First dose on Fri09/17/22 at 0900, Until Discontinu ed, Routine [facility] empaglifloz in (JARDIANCE) tablet 25 mg [...] meet the criteria for inpatient ordering? Yes [facility] citalopram (CELEXA) tablet 10 mg 09-17 15:00: 00 Yes 10mg 10 mg, Oral, DAILY, First dose on Fri09/17/22 at 0900, Until Discontinu ed, Routine [facility] glipiZIDE (GLUCOTROL) tablet 5 mg 09-17 15:00: 00 Yes 5mg 5 mg, Oral, DAILY, First dose on Fri09/17/22 at 0900, Until Discontinu ed, Routine [facility] apixaban (ELIQUIS) tablet 5 mg 09-17 14:00: 00 Yes 5mg 5 mg, Oral, BID, First dose on Fri09/17/22 at 0800, Until Discontinu ed, Routine
Indicatio ns: Non-Valvul ar Atrial Fibrillati on [facility] Sliding Scale Insulin-Reg ular + Fsbg Testing 09-17 13:30: 00 Yes Subcutaneo us, AC+HS, First dose on Fri09/17/22 at 0730, Until Discontinu ed, Routine [facility] NaCl 0.9% (NS) IV infusion 1,000 mL 09-17 07:30: 00 09-17 17:41 :00 No 1000mL at 100 mL/hr, IV Infusion, ONCE, 1 dose, On Fri09/17/22 at 0130, Routine [facility] glucagon (GLUCAGEN DIAGNOSTIC KIT) injection 1 mg 09-17 04:21: 18 Yes 1mg 1 mg, Intramuscu lar, PRN, Starting on Fri09/16/22 at 2221, Until Discontinu ed, SANG, Blood Glucose < or = 70 mg/dL and patient is unable to swallow or has mental changes. [facility] dextrose 50 % in water (D50W) injection 25 mL 09-17 04:21: 18 Yes 25mL 25 mL, Slow IV Push, PRN, Starting on Fri09/16/22 at 2221, Until Discontinu ed, SANG, Blood Glucose < or = 70 mg/dL and patient is unable to swallow or has mental status changes. [facility] cyclobenzap rine (FLEXERIL) tablet 10 mg 09-17 04:13: 32 Yes 10mg 10 mg, Oral, TIDPRN, Starting on Fri09/16/22 at 2213, Until Discontinu ed, Routine, Muscle Spasms [facility] digoxin (LANOXIN) injection 500 mcg 09-17 02:15: 00 09-17 01:53 :00 No 500ug 500 mcg, Intravenou s, ONCE, 1 dose, On Fri09/16/22 at 2015, Routine [facility] diltiazem (CARDIZEM IV) injection 10 mg 09-17 02:15: 00 09-17 01:53 :00 No 10mg 10 mg, IV Push, ONCE, 1 dose, On Fri09/16/22 at 2015, STAT
Fa culty member approving Restricted medication : RUSSELL PAUL [facility] diltiazem (CARDIZEM) tablet 30 mg 09-17 00:00: 00 09-18 15:54 :29 No 30mg 30 mg, Oral, Q6H, First dose on Fri09/16/22 at 1800, Until Discontinu ed, Routine [facility] acetaminoph en-codeine (TYLENOL #3) 300-30 mg tablet 1 tablet 09-16 23:49: 01 09-18 23:48 :01 No 1{tbl} 1 tablet, Oral, Q6HPRN, Starting on Fri09/16/22 at 1749, Until Fri09/18/22 at 1748, Routine, Pain (scale 4-6) [facility] acetaminoph en (TYLENOL) tablet 650 mg 09-16 23:49: 00 Yes 650mg 650 mg, Oral, Q6HPRN, Starting on Fri09/16/22 at 1749, Until Discontinu ed, Routine, Pain (scale 1-3) [facility] diltiazem (CARDIZEM IV) injection 15 mg 09-16 23:45: 00 09-16 23:39 :00 No 15mg 15 mg, IV Push, ONCE, 1 dose, On Fri09/16/22 at 1745, STAT
Fa culty member approving Restricted medication : JACKI SAMUELS [facility] diltiazem (CARDIZEM IV) injection 25 mg 09-16 21:30: 00 09-16 21:20 :00 No 25mg 25 mg, IV Push, ONCE, 1 dose, On 09/16/22 at 1530, STAT
[facility] JACKI SAMUELS [facility] lisinopriL 20 mg tablet 2021-09 14:37: 53 07-08 00:00 :00 No 20mg Take 20 mg by mouth 2 (two) times daily. [facility] lisinopriL 20 mg tablet 2021-09 00:00: 00 01-09 00:00 :00 No 20mg Take 1 tablet by mouth in the morning and 1 tablet in the evening. [facility] empaglifloz in 25 mg Tab 03-22 15:15: 24 Yes Take by mouth daily. [facility] loratadine 10 mg capsule 03-22 15:15: 24 Yes Take by mouth as needed. [facility] coenzyme Q10 100 mg softgel 03-22 15:15: 24 Yes 100mg Take 1 capsule by mouth in the morning. [facility] lisinopriL 20 mg tablet 03-22 15:15: 24 Yes 20mg Take 20 mg by mouth 2 (two) times daily. [facility] nitroglycer in (NITROSTAT) 0.4 mg sublingual tablet 01-09 13:20: 35 01-09 00:00 :[address] 0.4 mg under the tongue every 5 (five) minutes as needed for Chest pain. [facility] estradioL 0.01 % (0.1 mg/gram) vaginal cream 10-22 00:00: 00 04-26 00:00 :00 No [id number] Apply a thin layer to affected area twice per week [facility] amLODIPine 10 mg tablet 09-04 00:00: 00 09-23 00:00 :00 No [facility] amiodarone 200 mg tablet 2020-09 00:00: 00 01-09 00:00 :00 No [id number] 200mg Take 1 tablet by mouth daily. [facility] omeprazole 20 mg capsule 2020-09 00:00: 00 Yes 20mg Take 1 capsule in the morning and 1 capsule in the evening. [facility] glipiZIDE 5 mg tablet 2020-09 00:00: 00 Yes 5mg Take 1 tablet by mouth in the morning. [facility] citalopram 10 mg tablet 2020-09 00:00: 00 Yes 10mg Take 1 tablet in the morning. [facility] atorvastati n 40 mg tablet 2019-09 0 00:00: 00 09-23 00:00 :00 No 40mg Take 1 tablet by mouth at bedtime. [facility] cyclobenzap rine 10 mg tablet 05-26 00:00: 00 07-20 00:00 :00 No [id number] 9103 10mg Take 1 tablet by mouth 3 (three) times daily as needed for Muscle Spasms. Also for pain, spine. [facility] apixaban 5 mg tablet 02-03 00:00: 00 Yes [id number] 5mg Take 1 tablet by mouth 2 (two) times daily. [facility] alendronate 70 mg tablet 10-03 00:00: 00 09-19 00:00 :00 No 70mg Take 1 tablet by mouth weekly. [facility] calcium carbonate-v itamin D3 1,000 mg(2,500 mg)-800 unit Tab 05-06 00:00: 00 Yes 1{tbl} Take 1 Tab by mouth daily. [facility] Immunizations Ordered Immunization Name Filled Immunization Name Date Status Comments Source SARS-COV-2 COVID-19 MODERNA VACCINE 2020-11-04 00:00:00 Completed [facility] SARS-COV-2 COVID-19 MODERNA 12+ YRS VACCINE 2020-11-04 00:00:00 Completed [facility] SARS-COV-2 COVID-19 MODERNA 12+ YRS VACCINE 2020-11-04 00:00:00 Completed [facility] SARS-COV-2 COVID-19 MODERNA 12+ YRS VACCINE 2020-11-04 00:00:00 Completed [facility] SARS-COV-2 COVID-19 MODERNA 12+ YRS VACCINE 2020-11-04 00:00:00 Completed [facility] SARS-COV-2 COVID-19 MODERNA 12+ YRS VACCINE 2020-11-04 00:00:00 Completed [facility] SARS-COV-2 COVID-19 MODERNA 12+ YRS VACCINE 2020-11-04 00:00:00 Completed [facility] SARS-COV-2 COVID-19 MODERNA 12+ YRS VACCINE 2020-11-04 00:00:00 Completed [facility] SARS-COV-2 COVID-19 MODERNA 12+ YRS VACCINE 2020-11-04 00:00:00 Completed [facility] SARS-COV-2 COVID-19 MODERNA 12+ YRS VACCINE 2020-11-04 00:00:00 Completed [facility] SARS-COV-2 COVID-19 MODERNA 12+ YRS VACCINE 2020-11-04 00:00:00 Completed [facility] SARS-COV-2 COVID-19 MODERNA 12+ YRS VACCINE 2020-11-04 00:00:00 Completed [facility] SARS-COV-2 COVID-19 MODERNA 12+ YRS VACCINE 2020-11-04 00:00:00 Completed [facility] SARS-COV-2 COVID-19 MODERNA 12+ YRS VACCINE 2020-11-04 00:00:00 Completed [facility] SARS-COV-2 COVID-19 MODERNA 12+ YRS VACCINE 2020-11-04 00:00:00 Completed [facility] SARS-COV-2 COVID-19 MODERNA 12+ YRS VACCINE 2020-11-04 00:00:00 Completed [facility] SARS-COV-2 COVID-19 MODERNA 12+ YRS VACCINE 2020-11-04 00:00:00 Completed [facility] SARS-COV-2 COVID-19 MODERNA 12+ YRS VACCINE 2020-11-04 00:00:00 Completed [facility] SARS-COV-2 COVID-19 MODERNA 12+ YRS VACCINE 2020-11-04 00:00:00 Completed [facility] SARS-COV-2 COVID-19 MODERNA 12+ YRS VACCINE 2020-11-04 00:00:00 Completed [facility] SARS-COV-2 COVID-19 MODERNA 12+ YRS VACCINE 2020-11-04 00:00:00 Completed [facility] SARS-COV-2 COVID-19 MODERNA 12+ YRS VACCINE 2020-11-04 00:00:00 Completed [facility] SARS-COV-2 COVID-19 MODERNA 12+ YRS VACCINE 2020-11-04 00:00:00 Completed [facility] SARS-COV-2 COVID-19 MODERNA 12+ YRS VACCINE 2020-11-04 00:00:00 Completed [facility] SARS-COV-2 COVID-19 MODERNA 12+ YRS VACCINE 2020-11-04 00:00:00 Completed [facility] SARS-COV-2 COVID-19 MODERNA 12+ YRS VACCINE 2020-11-04 00:00:00 Completed [facility] SARS-COV-2 COVID-19 MODERNA 12+ YRS VACCINE 2020-11-04 00:00:00 Completed [facility] SARS-COV-2 COVID-19 MODERNA 12+ YRS VACCINE 2020-11-04 00:00:00 Completed [facility] SARS-COV-2 COVID-19 MODERNA 12+ YRS VACCINE 2020-11-04 00:00:00 Completed [facility] SARS-COV-2 COVID-19 MODERNA 12+ YRS VACCINE 2020-11-04 00:00:00 Completed [facility] SARS-COV-2 COVID-19 MODERNA 12+ YRS VACCINE 2020-11-04 00:00:00 Completed [facility] SARS-COV-2 COVID-19 MODERNA 12+ YRS VACCINE 2020-11-04 00:00:00 Completed [facility] SARS-COV-2 COVID-19 MODERNA 12+ YRS VACCINE 2020-11-04 00:00:00 Completed SARS-COV-2 COVID-19 MODERNA 12+ YRS VACCINE 2020-11-04 00:00:00 Completed SARS-COV-2 COVID-19 MODERNA VACCINE 2020-10-10 00:00:00 Completed [facility] SARS-COV-2 COVID-19 MODERNA 12+ YRS VACCINE 2020-10-10 00:00:00 Completed [facility] SARS-COV-2 COVID-19 MODERNA 12+ YRS VACCINE 2020-10-10 00:00:00 Completed [facility] SARS-COV-2 COVID-19 MODERNA 12+ YRS VACCINE 2020-10-10 00:00:00 Completed [facility] SARS-COV-2 COVID-19 MODERNA 12+ YRS VACCINE 2020-10-10 00:00:00 Completed [facility] SARS-COV-2 COVID-19 MODERNA 12+ YRS VACCINE 2020-10-10 00:00:00 Completed [facility] SARS-COV-2 COVID-19 MODERNA 12+ YRS VACCINE 2020-10-10 00:00:00 Completed [facility] SARS-COV-2 COVID-19 MODERNA 12+ YRS VACCINE 2020-10-10 00:00:00 Completed [facility] SARS-COV-2 COVID-19 MODERNA 12+ YRS VACCINE 2020-10-10 00:00:00 Completed [facility] SARS-COV-2 COVID-19 MODERNA 12+ YRS VACCINE 2020-10-10 00:00:00 Completed [facility] SARS-COV-2 COVID-19 MODERNA 12+ YRS VACCINE 2020-10-10 00:00:00 Completed [facility] SARS-COV-2 COVID-19 MODERNA 12+ YRS VACCINE 2020-10-10 00:00:00 Completed [facility] SARS-COV-2 COVID-19 MODERNA 12+ YRS VACCINE 2020-10-10 00:00:00 Completed [facility] SARS-COV-2 COVID-19 MODERNA 12+ YRS VACCINE 2020-10-10 00:00:00 Completed [facility] SARS-COV-2 COVID-19 MODERNA 12+ YRS VACCINE 2020-10-10 00:00:00 Completed [facility] SARS-COV-2 COVID-19 MODERNA 12+ YRS VACCINE 2020-10-10 00:00:00 Completed [facility] SARS-COV-2 COVID-19 MODERNA 12+ YRS VACCINE 2020-10-10 00:00:00 Completed [facility] SARS-COV-2 COVID-19 MODERNA 12+ YRS VACCINE 2020-10-10 00:00:00 Completed [facility] SARS-COV-2 COVID-19 MODERNA 12+ YRS VACCINE 2020-10-10 00:00:00 Completed [facility] SARS-COV-2 COVID-19 MODERNA 12+ YRS VACCINE 2020-10-10 00:00:00 Completed [facility] SARS-COV-2 COVID-19 MODERNA 12+ YRS VACCINE 2020-10-10 00:00:00 Completed [facility] SARS-COV-2 COVID-19 MODERNA 12+ YRS VACCINE 2020-10-10 00:00:00 Completed [facility] SARS-COV-2 COVID-19 MODERNA 12+ YRS VACCINE 2020-10-10 00:00:00 Completed [facility] SARS-COV-2 COVID-19 MODERNA 12+ YRS VACCINE 2020-10-10 00:00:00 Completed [facility] SARS-COV-2 COVID-19 MODERNA 12+ YRS VACCINE 2020-10-10 00:00:00 Completed [facility] SARS-COV-2 COVID-19 MODERNA 12+ YRS VACCINE 2020-10-10 00:00:00 Completed [facility] SARS-COV-2 COVID-19 MODERNA 12+ YRS VACCINE 2020-10-10 00:00:00 Completed [facility] SARS-COV-2 COVID-19 MODERNA 12+ YRS VACCINE 2020-10-10 00:00:00 Completed [facility] SARS-COV-2 COVID-19 MODERNA 12+ YRS VACCINE 2020-10-10 00:00:00 Completed [facility] SARS-COV-2 COVID-19 MODERNA 12+ YRS VACCINE 2020-10-10 00:00:00 Completed [facility] SARS-COV-2 COVID-19 MODERNA 12+ YRS VACCINE 2020-10-10 00:00:00 Completed [facility] SARS-COV-2 COVID-19 MODERNA 12+ YRS VACCINE 2020-10-10 00:00:00 Completed [facility] SARS-COV-2 COVID-19 MODERNA 12+ YRS VACCINE 2020-10-10 00:00:00 Completed SARS-COV-2 COVID-19 MODERNA 12+ YRS VACCINE 2020-10-10 00:00:00 Completed Influenza Virus Vaccine Quad .5 mL IM 6+ MO 2020-07-07 00:00:00 Completed [facility] Influenza Virus Vaccine Quad .5 mL IM 6+ MO 2020-07-07 00:00:00 Completed [facility] Influenza Virus Vaccine Quad .5 mL IM 6+ MO 2020-07-07 00:00:00 Completed [facility] Influenza Virus Vaccine Quad .5 mL IM 6+ MO 2020-07-07 00:00:00 Completed [facility] Influenza Virus Vaccine Quad .5 mL IM 6+ MO 2020-07-07 00:00:00 Completed [facility] Influenza Virus Vaccine Quad .5 mL IM 6+ MO 2020-07-07 00:00:00 Completed [facility] Influenza Virus Vaccine Quad .5 mL IM 6+ MO 2020-07-07 00:00:00 Completed [facility] Influenza Virus Vaccine Quad .5 mL IM 6+ MO 2020-07-07 00:00:00 Completed [facility] Influenza Virus Vaccine Quad .5 mL IM 6+ MO 2020-07-07 00:00:00 Completed [facility] Influenza Virus Vaccine Quad .5 mL IM MO 2020-07-07 00:00:00 Completed [facility] Influenza Virus Vaccine Quad .5 mL IM 6+ MO 2020-07-07 00:00:00 Completed [facility] Influenza Virus Vaccine Quad .5 mL IM 6+ MO 2020-07-07 00:00:00 Completed [facility] Influenza Virus Vaccine Quad .5 mL IM 6+ MO 2020-07-07 00:00:00 Completed [facility] Influenza Virus Vaccine Quad .5 mL IM 6+ MO 2020-07-07 00:00:00 Completed [facility] Influenza Virus Vaccine Quad .5 mL IM 6+ MO 2020-07-07 00:00:00 Completed [facility] Influenza Virus Vaccine Quad .5 mL IM 6+ MO 2020-07-07 00:00:00 Completed [facility] Influenza Virus Vaccine Quad .5 mL IM 6+ MO 2020-07-07 00:00:00 Completed [facility] Influenza Virus Vaccine Quad .5 mL IM 6+ MO 2020-07-07 00:00:00 Completed [facility] Influenza Virus Vaccine Quad .5 mL IM 6+ MO 2020-07-07 00:00:00 Completed [facility] Influenza Virus Vaccine Quad .5 mL IM 6+ MO 2020-07-07 00:00:00 Completed [facility] Influenza Virus Vaccine Quad .5 mL IM 6+ MO 2020-07-07 00:00:00 Completed [facility] Influenza Virus Vaccine Quad .5 mL IM 6+ MO 2020-07-07 00:00:00 Completed [facility] Influenza Virus Vaccine Quad .5 mL IM 6+ MO 2020-07-07 00:00:00 Completed [facility] Influenza Virus Vaccine Quad .5 mL IM 6+ MO 2020-07-07 00:00:00 Completed [facility] Influenza Virus Vaccine Quad .5 mL IM 6+ MO 2020-07-07 00:00:00 Completed [facility] Influenza Virus Vaccine Quad .5 mL IM 6+ MO 2020-07-07 00:00:00 Completed [facility] Influenza Virus Vaccine Quad .5 mL IM 6+ MO 2020-07-07 00:00:00 Completed [facility] Influenza Virus Vaccine Quad .5 mL IM 6+ MO 2020-07-07 00:00:00 Completed [facility] Influenza Virus Vaccine Quad .5 mL IM 6+ MO 2020-07-07 00:00:00 Completed [facility] Influenza Virus Vaccine Quad .5 mL IM 6+ MO 2020-07-07 00:00:00 Completed [facility] Influenza Virus Vaccine Quad .5 mL IM 6+ MO 2020-07-07 00:00:00 Completed [facility] Influenza Virus Vaccine Quad .5 mL IM 6+ MO 2020-07-07 00:00:00 Completed [facility] Influenza Virus Vaccine Quad .5 mL IM 6+ MO (FLUZONE/FLULAVAL/F LUARIX) 2020-07-07 00:00:00 Completed [facility] Influenza Virus Vaccine Quad .5 mL IM 6+ MO (FLUZONE/FLULAVAL/F LUARIX) 2020-07-07 00:00:00 Completed [facility] TDAP 2019-06-05 00:00:00 Completed [facility] TDAP 2019-06-05 00:00:00 Completed [facility] TDAP 2019-06-05 00:00:00 Completed [facility] TDAP 2019-06-05 00:00:00 Completed [facility] TDAP 2019-06-05 00:00:00 Completed [facility] TDAP 2019-06-05 00:00:00 Completed [facility] TDAP 2019-06-05 00:00:00 Completed [facility] TDAP 2019-06-05 00:00:00 Completed [facility] TDAP 2019-06-05 00:00:00 Completed [facility] TDAP 2019-06-05 00:00:00 Completed [facility] TDAP 2019-06-05 00:00:00 Completed [facility] TDAP 2019-06-05 00:00:00 Completed [facility] TDAP 2019-06-05 00:00:00 Completed [facility] TDAP 2019-06-05 00:00:00 Completed [facility] TDAP 2019-06-05 00:00:00 Completed [facility] TDAP 2019-06-05 00:00:00 Completed [facility] TDAP 2019-06-05 00:00:00 Completed [facility] TDAP 2019-06-05 00:00:00 Completed [facility] TDAP 2019-06-05 00:00:00 Completed [facility] TDAP 2019-06-05 00:00:00 Completed [facility] TDAP 2019-06-05 00:00:00 Completed [facility] TDAP 2019-06-05 00:00:00 Completed [facility] [facility] TDAP 2019-06-05 00:00:00 Completed [facility] TDAP 2019-06-05 00:00:00 Completed [facility] TDAP 2019-06-05 00:00:00 Completed [facility] TDAP 2019-06-05 00:00:00 Completed [facility] TDAP 2019-06-05 00:00:00 Completed [facility] TDAP 2019-06-05 00:00:00 Completed [facility] TDAP 2019-06-05 00:00:00 Completed [facility] TDAP 2019-06-05 00:00:00 Completed [facility] TDAP 2019-06-05 00:00:00 Completed [facility] TDAP 2019-06-05 00:00:00 Completed [facility] TDAP 2019-06-05 00:00:00 Completed [facility] TDAP 2019-06-05 00:00:00 Completed [facility] TDAP 2019-06-05 00:00:00 Completed [facility] Influenza Virus Vaccine Quad IM 3+ YRS 2019-06-01 00:00:00 Completed [facility] Influenza Virus Vaccine Quad IM 3+ YRS 2019-06-01 00:00:00 Completed [facility] Influenza Virus Vaccine Quad IM 3+ YRS 2019-06-01 00:00:00 Completed [facility] Influenza Virus Vaccine Quad IM 3+ YRS 2019-06-01 00:00:00 Completed [facility] Influenza Virus Vaccine Quad IM 3+ YRS 2019-06-01 00:00:00 Completed [facility] Influenza Virus Vaccine Quad IM 3+ YRS 2019-06-01 00:00:00 Completed [facility] Influenza Virus Vaccine Quad IM 3+ YRS 2019-06-01 00:00:00 Completed [facility] Influenza Virus Vaccine Quad IM 3+ YRS 2019-06-01 00:00:00 Completed [facility] Influenza Virus Vaccine Quad IM 3+ YRS 2019-06-01 00:00:00 Completed [facility] Influenza Virus Vaccine Quad IM 3+ YRS 2019-06-01 00:00:00 Completed [facility] Influenza Virus Vaccine Quad IM 3+ YRS 2019-06-01 00:00:00 Completed [facility] Influenza Virus Vaccine Quad IM 3+ YRS 2019-06-01 00:00:00 Completed [facility] Influenza Virus Vaccine Quad IM 3+ YRS 2019-06-01 00:00:00 Completed [facility] Influenza Virus Vaccine Quad IM 3+ YRS 2019-06-01 00:00:00 Completed [facility] Influenza Virus Vaccine Quad IM 3+ YRS 2019-06-01 00:00:00 Completed [facility] Influenza Virus Vaccine Quad IM 3+ YRS 2019-06-01 00:00:00 Completed [facility] Influenza Virus Vaccine Quad IM 3+ YRS 2019-06-01 00:00:00 Completed [facility] Influenza Virus Vaccine Quad IM 3+ YRS 2019-06-01 00:00:00 Completed [facility] Influenza Virus Vaccine Quad IM 3+ YRS 2019-06-01 00:00:00 Completed [facility] Influenza Virus Vaccine Quad IM 3+ YRS 2019-06-01 00:00:00 Completed [facility] Influenza Virus Vaccine Quad IM 3+ YRS 2019-06-01 00:00:00 Completed [facility] Influenza Virus Vaccine Quad IM 3+ YRS 2019-06-01 00:00:00 Completed [facility] Influenza Virus Vaccine Quad IM 3+ YRS 2019-06-01 00:00:00 Completed [facility] Influenza Virus Vaccine Quad IM 3+ YRS 2019-06-01 00:00:00 Completed [facility] Influenza Virus Vaccine Quad IM 3+ YRS 2019-06-01 00:00:00 Completed [facility] Influenza Virus Vaccine Quad IM 3+ YRS 2019-06-01 00:00:00 Completed [facility] Influenza Virus Vaccine Quad IM 3+ YRS 2019-06-01 00:00:00 Completed [facility] Influenza Virus Vaccine Quad IM 3+ YRS 2019-06-01 00:00:00 Completed [facility] Influenza Virus Vaccine Quad IM 3+ YRS 2019-06-01 00:00:00 Completed [facility] Influenza Virus Vaccine Quad IM 3+ YRS 2019-06-01 00:00:00 Completed [facility] Influenza Virus Vaccine Quad IM 3+ YRS 2019-06-01 00:00:00 Completed [facility] Influenza Virus Vaccine Quad IM 3+ YRS 2019-06-01 00:00:00 Completed [facility] Influenza Virus Vaccine Quad IM 3+ YRS 2019-06-01 00:00:00 Completed [facility] Influenza Virus Vaccine Quad IM 3+ YRS 2019-06-01 00:00:00 Completed Influenza Virus Vaccine Quad IM 3+ YRS 2019-06-01 00:00:00 Completed Influenza Virus Vaccine Quad IM Multi-dose 6+ MO 2016-09-27 00:00:00 Completed [facility] Influenza Virus Vaccine Quad IM Multi-dose 6+ MO 2016-09-27 00:00:00 Completed [facility] Influenza Virus Vaccine Quad IM Multi-dose 6+ MO 2016-09-27 00:00:00 Completed [facility] Influenza Virus Vaccine Quad IM Multi-dose 6+ MO 2016-09-27 00:00:00 Completed [facility] Influenza Virus Vaccine Quad IM Multi-dose 6+ MO 2016-09-27 00:00:00 Completed [facility] Influenza Virus Vaccine Quad IM Multi-dose 6+ MO 2016-09-27 00:00:00 Completed [facility] Influenza Virus Vaccine Quad IM Multi-dose 6+ MO 2016-09-27 00:00:00 Completed [facility] Influenza Virus Vaccine Quad IM Multi-dose 6+ MO 2016-09-27 00:00:00 Completed [facility] Influenza Virus Vaccine Quad IM Multi-dose 6+ MO 2016-09-27 00:00:00 Completed [facility] Influenza Virus Vaccine Quad IM Multi-dose 6+ MO 2016-09-27 00:00:00 Completed [facility] Influenza Virus Vaccine Quad IM Multi-dose 6+ MO 2016-09-27 00:00:00 Completed [facility] Influenza Virus Vaccine Quad IM Multi-dose 6+ MO 2016-09-27 00:00:00 Completed [facility] Influenza Virus Vaccine Quad IM Multi-dose 6+ MO 2016-09-27 00:00:00 Completed [facility] Influenza Virus Vaccine Quad IM Multi-dose 6+ MO 2016-09-27 00:00:00 Completed [facility] Influenza Virus Vaccine Quad IM Multi-dose 6+ MO 2016-09-27 00:00:00 Completed [facility] Influenza Virus Vaccine Quad IM Multi-dose 6+ MO 2016-09-27 00:00:00 Completed [facility] Influenza Virus Vaccine Quad IM Multi-dose 6+ MO 2016-09-27 00:00:00 Completed [facility] Influenza Virus Vaccine Quad IM Multi-dose 6+ MO 2016-09-27 00:00:00 Completed [facility] Influenza Virus Vaccine Quad IM Multi-dose 6+ MO 2016-09-27 00:00:00 Completed [facility] Influenza Virus Vaccine Quad IM Multi-dose 6+ MO 2016-09-27 00:00:00 Completed [facility] Influenza Virus Vaccine Quad IM Multi-dose 6+ MO 2016-09-27 00:00:00 Completed [facility] Influenza Virus Vaccine Quad IM Multi-dose 6+ MO 2016-09-27 00:00:00 Completed [facility] Influenza Virus Vaccine Quad IM Multi-dose 6+ MO 2016-09-27 00:00:00 Completed [facility] Influenza Virus Vaccine Quad IM Multi-dose 6+ MO 2016-09-27 00:00:00 Completed [facility] Influenza Virus Vaccine Quad IM Multi-dose 6+ MO 2016-09-27 00:00:00 Completed [facility] Influenza Virus Vaccine Quad IM Multi-dose 6+ MO 2016-09-27 00:00:00 Completed [facility] Influenza Virus Vaccine Quad IM Multi-dose 6+ MO 2016-09-27 00:00:00 Completed [facility] Influenza Virus Vaccine Quad IM Multi-dose 6+ MO 2016-09-27 00:00:00 Completed [facility] Influenza Virus Vaccine Quad IM Multi-dose 6+ MO 2016-09-27 00:00:00 Completed [facility] Influenza Virus Vaccine Quad IM Multi-dose 6+ MO 2016-09-27 00:00:00 Completed [facility] Influenza Virus Vaccine Quad IM Multi-dose 6+ MO 2016-09-27 00:00:00 Completed [facility] Influenza Virus Vaccine Quad IM Multi-dose 6+ MO 2016-09-27 00:00:00 Completed [facility] Influenza Virus Vaccine Quad IM Multi-dose 6+ MO 2016-09-27 00:00:00 Completed [facility] Influenza Virus Vaccine Quad IM Multi-dose 6+ MO 2016-09-27 00:00:00 Completed Influenza Virus Vaccine Quad IM Multi-dose 6+ MO 2016-09-27 00:00:00 Completed Influenza Virus Vaccine Quad IM 3+ YRS 2015-08-22 00:00:00 Completed [facility] Influenza Virus Vaccine Quad IM 3+ YRS 2015-08-22 00:00:00 Completed [facility] Influenza Virus Vaccine Quad IM 3+ YRS 2015-08-22 00:00:00 Completed [facility] Influenza Virus Vaccine Quad IM 3+ YRS 2015-08-22 00:00:00 Completed [facility] Influenza Virus Vaccine Quad IM 3+ YRS 2015-08-22 00:00:00 Completed [facility] Influenza Virus Vaccine Quad IM 3+ YRS 2015-08-22 00:00:00 Completed [facility] Influenza Virus Vaccine Quad IM 3+ YRS 2015-08-22 00:00:00 Completed [facility] Influenza Virus Vaccine Quad IM 3+ YRS 2015-08-22 00:00:00 Completed [facility] Influenza Virus Vaccine Quad IM 3+ YRS 2015-08-22 00:00:00 Completed [facility] Influenza Virus Vaccine Quad IM 3+ YRS 2015-08-22 00:00:00 Completed [facility] Influenza Virus Vaccine Quad IM 3+ YRS 2015-08-22 00:00:00 Completed [facility] Influenza Virus Vaccine Quad IM 3+ YRS 2015-08-22 00:00:00 Completed [facility] Influenza Virus Vaccine Quad IM 3+ YRS 2015-08-22 00:00:00 Completed [facility] Influenza Virus Vaccine Quad IM 3+ YRS 2015-08-22 00:00:00 Completed [facility] Influenza Virus Vaccine Quad IM 3+ YRS 2015-08-22 00:00:00 Completed [facility] Influenza Virus Vaccine Quad IM 3+ YRS 2015-08-22 00:00:00 Completed [facility] Influenza Virus Vaccine Quad IM 3+ YRS 2015-08-22 00:00:00 Completed [facility] Influenza Virus Vaccine Quad IM 3+ YRS 2015-08-22 00:00:00 Completed [facility] Influenza Virus Vaccine Quad IM 3+ YRS 2015-08-22 00:00:00 Completed [facility] Influenza Virus Vaccine Quad IM 3+ YRS 2015-08-22 00:00:00 Completed [facility] Influenza Virus Vaccine Quad IM 3+ YRS 2015-08-22 00:00:00 Completed [facility] Influenza Virus Vaccine Quad IM 3+ YRS 2015-08-22 00:00:00 Completed [facility] Influenza Virus Vaccine Quad IM 3+ YRS 2015-08-22 00:00:00 Completed [facility] Influenza Virus Vaccine Quad IM 3+ YRS 2015-08-22 00:00:00 Completed [facility] Influenza Virus Vaccine Quad IM 3+ YRS 2015-08-22 00:00:00 Completed [facility] Influenza Virus Vaccine Quad IM 3+ YRS 2015-08-22 00:00:00 Completed [facility] Influenza Virus Vaccine Quad IM 3+ YRS 2015-08-22 00:00:00 Completed [facility] Influenza Virus Vaccine Quad IM 3+ YRS 2015-08-22 00:00:00 Completed [facility] Influenza Virus Vaccine Quad IM 3+ YRS 2015-08-22 00:00:00 Completed [facility] Influenza Virus Vaccine Quad IM 3+ YRS 2015-08-22 00:00:00 Completed [facility] Influenza Virus Vaccine Quad IM 3+ YRS 2015-08-22 00:00:00 Completed [facility] Influenza Virus Vaccine Quad IM 3+ YRS 2015-08-22 00:00:00 Completed [facility] Influenza Virus Vaccine Quad IM 3+ YRS 2015-08-22 00:00:00 Completed [facility] Influenza Virus Vaccine Quad IM 3+ YRS 2015-08-22 00:00:00 Completed [facility] Influenza Virus Vaccine Quad IM 3+ YRS 2015-08-22 00:00:00 Completed [facility] Pneumococcal Polysaccharide, PPSV23 (PNEUMOVAX) 2013-08-10 00:00:00 Completed [facility] Pneumococcal Polysaccharide, PPSV23 (PNEUMOVAX) 2013-08-10 00:00:00 Completed [facility] Pneumococcal Polysaccharide, PPSV23 (PNEUMOVAX) 2013-08-10 00:00:00 Completed [facility] Pneumococcal Polysaccharide, PPSV23 (PNEUMOVAX) 2013-08-10 00:00:00 Completed [facility] Pneumococcal Polysaccharide, PPSV23 (PNEUMOVAX) 2013-08-10 00:00:00 Completed [facility] Pneumococcal Polysaccharide, PPSV23 (PNEUMOVAX) 2013-08-10 00:00:00 Completed [facility] Pneumococcal Polysaccharide, PPSV23 (PNEUMOVAX) 2013-08-10 00:00:00 Completed [facility] Pneumococcal Polysaccharide, PPSV23 (PNEUMOVAX) 2013-08-10 00:00:00 Completed [facility] Pneumococcal Polysaccharide, PPSV23 (PNEUMOVAX) 2013-08-10 00:00:00 Completed [facility] Pneumococcal Polysaccharide, PPSV23 (PNEUMOVAX) 2013-08-10 00:00:00 Completed [facility] Pneumococcal Polysaccharide, PPSV23 (PNEUMOVAX) 2013-08-10 00:00:00 Completed [facility] Pneumococcal Polysaccharide, PPSV23 (PNEUMOVAX) 2013-08-10 00:00:00 Completed [facility] Pneumococcal Polysaccharide, PPSV23 (PNEUMOVAX) 2013-08-10 00:00:00 Completed [facility] Pneumococcal Polysaccharide, PPSV23 (PNEUMOVAX) 2013-08-10 00:00:00 Completed [facility] Pneumococcal Polysaccharide, PPSV23 (PNEUMOVAX) 2013-08-10 00:00:00 Completed [facility] Pneumococcal Polysaccharide, PPSV23 (PNEUMOVAX) 2013-08-10 00:00:00 Completed [facility] Pneumococcal Polysaccharide, PPSV23 (PNEUMOVAX) 2013-08-10 00:00:00 Completed [facility] Pneumococcal Polysaccharide, PPSV23 (PNEUMOVAX) 2013-08-10 00:00:00 Completed [facility] Pneumococcal Polysaccharide, PPSV23 (PNEUMOVAX) 2013-08-10 00:00:00 Completed [facility] Pneumococcal Polysaccharide, PPSV23 (PNEUMOVAX) 2013-08-10 00:00:00 Completed [facility] Pneumococcal Polysaccharide, PPSV23 (PNEUMOVAX) 2013-08-10 00:00:00 Completed [facility] Pneumococcal Polysaccharide, PPSV23 (PNEUMOVAX) 2013-08-10 00:00:00 Completed [facility] Pneumococcal Polysaccharide, PPSV23 (PNEUMOVAX) 2013-08-10 00:00:00 Completed [facility] Pneumococcal Polysaccharide, PPSV23 (PNEUMOVAX) 2013-08-10 00:00:00 Completed [facility] Pneumococcal Polysaccharide, PPSV23 (PNEUMOVAX) 2013-08-10 00:00:00 Completed [facility] Pneumococcal Polysaccharide, PPSV23 (PNEUMOVAX) 2013-08-10 00:00:00 Completed [facility] Pneumococcal Polysaccharide, PPSV23 (PNEUMOVAX) 2013-08-10 00:00:00 Completed [facility] Pneumococcal Polysaccharide, PPSV23 (PNEUMOVAX) 2013-08-10 00:00:00 Completed [facility] Pneumococcal Polysaccharide, PPSV23 (PNEUMOVAX) 2013-08-10 00:00:00 Completed [facility] Pneumococcal Polysaccharide, PPSV23 (PNEUMOVAX) 2013-08-10 00:00:00 Completed [facility] Pneumococcal Polysaccharide, PPSV23 (PNEUMOVAX) 2013-08-10 00:00:00 Completed [facility] Pneumococcal Polysaccharide, PPSV23 (PNEUMOVAX) 2013-08-10 00:00:00 Completed [facility] Pneumococcal Polysaccharide, PPSV23 (PNEUMOVAX) 2013-08-10 00:00:00 Completed [facility] Pneumococcal Polysaccharide, PPSV23 (PNEUMOVAX) 2013-08-10 00:00:00 Completed [facility] Pneumococcal Polysaccharide, PPSV23 (PNEUMOVAX) 2013-08-10 00:00:00 Completed [facility] Influenza Virus Vaccine - Whole 2012-07-08 00:00:00 Completed [facility] Influenza Virus Vaccine - Whole 2012-07-08 00:00:00 Completed [facility] TDAP (ADACEL) VACCINE 2008-02-07 00:00:00 Completed [facility] TDAP (ADACEL) VACCINE 2008-02-07 00:00:00 Completed [facility] TDAP (ADACEL) VACCINE 2008-02-07 00:00:00 Completed [facility] TDAP (ADACEL) VACCINE 2008-02-07 00:00:00 Completed [facility] TDAP (ADACEL) VACCINE 2008-02-07 00:00:00 Completed [facility] TDAP (ADACEL) VACCINE 2008-02-07 00:00:00 Completed [facility] TDAP (ADACEL) VACCINE 2008-02-07 00:00:00 Completed [facility] TDAP (ADACEL) VACCINE 2008-02-07 00:00:00 Completed [facility] TDAP (ADACEL) VACCINE 2008-02-07 00:00:00 Completed [facility] TDAP (ADACEL) VACCINE 2008-02-07 00:00:00 Completed [facility] TDAP (ADACEL) VACCINE 2008-02-07 00:00:00 Completed [facility] TDAP (ADACEL) VACCINE 2008-02-07 00:00:00 Completed [facility] TDAP (ADACEL) VACCINE 2008-02-07 00:00:00 Completed [facility] TDAP (ADACEL) VACCINE 2008-02-07 00:00:00 Completed [facility] TDAP (ADACEL) VACCINE 2008-02-07 00:00:00 Completed [facility] TDAP (ADACEL) VACCINE 2008-02-07 00:00:00 Completed [facility] TDAP (ADACEL) VACCINE 2008-02-07 00:00:00 Completed [facility] TDAP (ADACEL) VACCINE 2008-02-07 00:00:00 Completed [facility] TDAP (ADACEL) VACCINE 2008-02-07 00:00:00 Completed [facility] TDAP (ADACEL) VACCINE 2008-02-07 00:00:00 Completed [facility] TDAP (ADACEL) VACCINE 2008-02-07 00:00:00 Completed [facility] TDAP (ADACEL) VACCINE 2008-02-07 00:00:00 Completed [facility] TDAP (ADACEL) VACCINE 2008-02-07 00:00:00 Completed [facility] TDAP (ADACEL) VACCINE 2008-02-07 00:00:00 Completed [facility] TDAP (ADACEL) VACCINE 2008-02-07 00:00:00 Completed [facility] TDAP (ADACEL) VACCINE 2008-02-07 00:00:00 Completed [facility] TDAP (ADACEL) VACCINE 2008-02-07 00:00:00 Completed [facility] TDAP (ADACEL) VACCINE 2008-02-07 00:00:00 Completed [facility] TDAP (ADACEL) VACCINE 2008-02-07 00:00:00 Completed [facility] TDAP (ADACEL) VACCINE 2008-02-07 00:00:00 Completed [facility] TDAP (ADACEL) VACCINE 2008-02-07 00:00:00 Completed [facility] TDAP (ADACEL) VACCINE 2008-02-07 00:00:00 Completed [facility] TDAP (ADACEL) VACCINE 2008-02-07 00:00:00 Completed [facility] TDAP (ADACEL) VACCINE 2008-02-07 00:00:00 Completed [facility] TDAP (ADACEL) VACCINE 2008-02-07 00:00:00 Completed [facility] Pneumococcal Polysaccharide, PPSV23 (PNEUMOVAX) Unknown Completed [facility] TDAP (ADACEL) VACCINE Unknown Completed [facility] Influenza Virus Vaccine Quad IM Multi-dose 6+ MO Unknown Completed [facility] Influenza Virus Vaccine Quad .5 mL IM 6+ MO (FLUZONE/FLULAVAL/F LUARIX) Unknown Completed [facility] SARS-COV-2 COVID-19 MODERNA 12+ YRS VACCINE Unknown Completed [facility] Pneumococcal Polysaccharide, PPSV23 (PNEUMOVAX) Unknown Completed [facility] TDAP (ADACEL) VACCINE Unknown Completed [facility] Influenza Virus Vaccine Quad IM 3+ YRS Unknown Completed [facility] Influenza Virus Vaccine Quad IM Multi-dose 6+ MO Unknown Completed [facility] SARS-COV-2 COVID-19 MODERNA 12+ YRS VACCINE Unknown Completed [facility] Pneumococcal Polysaccharide, PPSV23 (PNEUMOVAX) Unknown Completed [facility] TDAP (ADACEL) VACCINE Unknown Completed [facility] Influenza Virus Vaccine Quad IM 3+ YRS Unknown Completed [facility] Influenza Virus Vaccine Quad IM Multi-dose 6+ MO Unknown Completed [facility] SARS-COV-2 COVID-19 MODERNA 12+ YRS VACCINE Unknown Completed [facility] Pneumococcal Polysaccharide, PPSV23 (PNEUMOVAX) Unknown Completed [facility] TDAP (ADACEL) VACCINE Unknown Completed [facility] Influenza Virus Vaccine Quad IM 3+ YRS Unknown Completed [facility] Influenza Virus Vaccine Quad IM Multi-dose 6+ MO Unknown Completed [facility] SARS-COV-2 COVID-19 MODERNA 12+ YRS VACCINE Unknown Completed [facility] Pneumococcal Polysaccharide, PPSV23 (PNEUMOVAX) Unknown Completed [facility] TDAP (ADACEL) VACCINE Unknown Completed [facility] Influenza Virus Vaccine Quad IM 3+ YRS Unknown Completed [facility] Influenza Virus Vaccine Quad IM Multi-dose 6+ MO Unknown Completed [facility] SARS-COV-2 COVID-19 MODERNA 12+ YRS VACCINE Unknown Completed [facility] Pneumococcal Polysaccharide, PPSV23 (PNEUMOVAX) Unknown Completed [facility] TDAP (ADACEL) VACCINE Unknown Completed [facility] Influenza Virus Vaccine Quad IM 3+ YRS Unknown Completed [facility] Influenza Virus Vaccine Quad IM Multi-dose 6+ MO Unknown Completed [facility] SARS-COV-2 COVID-19 MODERNA 12+ YRS VACCINE Unknown Completed [facility] Pneumococcal Polysaccharide, PPSV23 (PNEUMOVAX) Unknown [facility] TDAP (ADACEL) VACCINE Unknown Completed [facility] Influenza Virus Vaccine Quad IM 3+ YRS Unknown Completed [facility] Influenza Virus Vaccine Quad IM Multi-dose 6+ MO Unknown Completed [facility] SARS-COV-2 COVID-19 MODERNA 12+ YRS VACCINE Unknown Completed [facility] Pneumococcal Polysaccharide, PPSV23 (PNEUMOVAX) Unknown Completed [facility] TDAP (ADACEL) VACCINE Unknown Completed [facility] Influenza Virus Vaccine Quad IM 3+ YRS Unknown Completed [facility] Influenza Virus Vaccine Quad IM Multi-dose 6+ MO Unknown Completed [facility] SARS-COV-2 COVID-19 MODERNA 12+ YRS VACCINE Unknown Completed [facility] Pneumococcal Polysaccharide, PPSV23 (PNEUMOVAX) Unknown Completed [facility] TDAP (ADACEL) VACCINE Unknown Completed [facility] Influenza Virus Vaccine Quad IM 3+ YRS Unknown Completed [facility] Influenza Virus Vaccine Quad IM Multi-dose 6+ MO Unknown Completed [facility] SARS-COV-2 COVID-19 MODERNA 12+ YRS VACCINE Unknown Completed [facility] Pneumococcal Polysaccharide, PPSV23 (PNEUMOVAX) Unknown Completed [facility] TDAP (ADACEL) VACCINE Unknown Completed [facility] Influenza Virus Vaccine Quad IM 3+ YRS Unknown Completed [facility] Pneumococcal Polysaccharide, PPSV23 (PNEUMOVAX) Unknown Completed [facility] TDAP (ADACEL) VACCINE Unknown Completed [facility] Influenza Virus Vaccine Quad IM 3+ YRS Unknown Completed [facility] Influenza Virus Vaccine Quad IM Multi-dose 6+ MO Unknown Completed [facility] SARS-COV-2 COVID-19 MODERNA 12+ YRS VACCINE Unknown Completed [facility] Pneumococcal Polysaccharide, PPSV23 (PNEUMOVAX) Unknown Completed [facility] TDAP (ADACEL) VACCINE Unknown Completed [facility] Influenza Virus Vaccine Quad IM 3+ YRS Unknown Completed [facility] Influenza Virus Vaccine Quad IM Multi-dose 6+ MO Unknown Completed [facility] SARS-COV-2 COVID-19 MODERNA 12+ YRS VACCINE Unknown Completed [facility] Pneumococcal Polysaccharide, PPSV23 (PNEUMOVAX) Unknown Completed [facility] TDAP (ADACEL) VACCINE Unknown Completed [facility] Influenza Virus Vaccine Quad IM 3+ YRS Unknown Completed [facility] Influenza Virus Vaccine Quad IM Multi-dose 6+ MO Unknown Completed [facility] SARS-COV-2 COVID-19 MODERNA 12+ YRS VACCINE Unknown Completed [facility] Pneumococcal Polysaccharide, PPSV23 (PNEUMOVAX) Unknown Completed [facility] TDAP (ADACEL) VACCINE Unknown Completed [facility] Influenza Virus Vaccine Quad IM 3+ YRS Unknown Completed [facility] Influenza Virus Vaccine Quad IM Multi-dose 6+ MO Unknown Completed [facility] SARS-COV-2 COVID-19 MODERNA 12+ YRS VACCINE Unknown Completed [facility] Pneumococcal Polysaccharide, PPSV23 (PNEUMOVAX) Unknown Completed [facility] TDAP (ADACEL) VACCINE Unknown Completed [facility] Influenza Virus Vaccine Quad IM 3+ YRS Unknown Completed [facility] Influenza Virus Vaccine Quad IM Multi-dose 6+ MO Unknown Completed [facility] SARS-COV-2 COVID-19 MODERNA 12+ YRS VACCINE Unknown Completed [facility] Vital Signs Vital Name Observation Time Observation Value Comments S ource Systolic blood pressure 2024-07-20 16:05:00 170 mm[Hg] [facility] Diastolic blood pressure 2024-07-20 16:05:00 74 mm[Hg] [facility] Heart rate 2024-07-20 16:05:00 76 [facility] Res[facility] 2024-07-20 16:05:00 18 /min [facility] Body height 2024-07-20 16:05:00 162.6 cm [facility] Body weight 2024-07-20 16:05:00 87.799 kg [facility] BMI 2024-07-20 16:05:00 33.22 kg/m2 [facility] Oxygen saturation in Arterial blood by Pulse oximetry 2024-07-20 16:05:00 96 /min [facility] Systolic blood pressure 2024-07-09 02:13:00 141 mm[Hg] [facility] Diastolic blood pressure 2024-07-09 02:13:00 76 mm[Hg] [facility] [facility] Heart rate 2024-07-09 02:13:00 82 /min [facility] Body temperature 2024-07-09 02:13:00 36.61 Su [facility] Respiratory rate 2024-07-09 02:13:00 18 /min [facility] Oxygen saturation in Arterial blood by Pulse oximetry 2024-07-09 02:13:00 95 /min [facility] Body height 2024-07-08 22:57:00 162.6 cm [facility] Body weight 2024-07-08 22:57:00 86.637 kg [facility] BMI 2024-07-08 22:57:00 32.79 kg/m2 [facility] Systolic blood pressure 2024-07-07 19:55:00 143 mm[Hg] [facility] Diastolic blood pressure 2024-07-07 19:55:00 65 mm[Hg] [facility] Heart rate 2024-07-07 19:55:00 93 /min [facility] Respiratory rate 2024-07-07 19:55:00 14 /min [facility] Oxygen saturation in Arterial blood by Pulse oximetry 2024-07-07 19:55:00 92 /min [facility] Systolic blood pressure 2024-04-28 22:40:00 126 mm[Hg] [facility] Diastolic blood pressure 2024-04-28 22:40:00 80 mm[Hg] [facility] Heart rate 2024-04-28 22:40:00 84 /min [facility] Respiratory rate 2024-04-28 22:40:00 14 /min [facility] Oxygen saturation in Arterial blood by Pulse oximetry 2024-04-28 22:40:00 97 /min [facility] Body temperature 2024-04-28 16:00:00 35.94 Su [facility] Body weight 2024-04-28 09:00:00 87.998 kg [facility] BMI 2024-04-28 09:00:00 32.28 kg/m2 [facility] Body height 2024-04-26 06:02:00 165.1 cm [facility] Systolic blood pressure 2024-04-23 19:53:00 167 mm[Hg] [facility] Diastolic blood pressure 2024-04-23 19:53:00 65 mm[Hg] [facility] Heart rate 2024-04-23 19:53:00 70 /min [facility] Body height 2024-04-23 19:53:00 165.1 cm [facility] Body weight 2024-04-23 19:53:00 88.769 kg [facility] BMI 2024-04-23 19:53:00 32.57 kg/m2 [facility] Oxygen saturation in Arterial blood by Pulse oximetry 2024-04-23 19:53:00 99 /min [facility] Systolic blood pressure 2022-12-18 20:22:00 137 mm[Hg] [facility] Diastolic blood pressure 2022-12-18 20:22:00 80 mm[Hg] [facility] Heart rate 2022-12-18 20:22:00 66 /min [facility] Body [facility] 2022-12-18 20:22:00 36.11 Su [facility] Respiratory rate 2022-12-18 20:22:00 17 /min [facility] Body height 2022-12-18 20:22:00 162.6 cm [facility] Body weight 2022-12-18 20:22:00 90.855 kg [facility] BMI 2022-12-18 20:22:00 34.38 kg/m2 [facility] Oxygen saturation in Arterial blood by Pulse oximetry 2022-12-18 20:22:00 96 /min [facility] Systolic blood pressure 2022-11-08 17:49:00 137 mm[Hg] [facility] Diastolic blood pressure 2022-11-08 17:49:00 76 mm[Hg] [facility] Heart rate 2022-11-08 17:49:00 65 /min [facility] Body temperature 2022-11-08 17:49:00 36.61 Su [facility] Respiratory rate 2022-11-08 17:49:00 19 /min [facility] Oxygen saturation in Arterial blood by Pulse oximetry 2022-11-08 17:49:00 96 /min [facility] Body height 2022-11-08 00:41:00 162.6 cm [facility] Body weight 2022-11-08 00:41:00 88.451 kg [facility] BMI 2022-11-08 00:41:00 33.45 kg/m2 [facility] Systolic blood pressure 2022-11-07 20:23:57 205 mm[Hg] [facility] Diastolic blood pressure 2022-11-07 20:23:57 88 mm[Hg] [facility] Heart rate 2022-11-07 20:23:57 67 /min [facility] Respiratory rate 2022-11-07 20:23:57 18 /min [facility] Oxygen saturation in Arterial blood by Pulse oximetry 2022-11-07 20:23:57 100 /min [facility] Body height 2022-11-07 20:08:56 162.6 cm [facility] Body weight 2022-11-07 20:08:56 88.451 kg [facility] BMI 2022-11-07 20:08:56 33.45 kg/m2 [facility] Body temperature 2022-11-07 18:33:00 35.67 Su [facility] Systolic blood pressure 2022-10-03 21:00:00 138 mm[Hg] [facility] Diastolic blood pressure 2022-10-03 21:00:00 58 mm[Hg] [facility] Heart rate 2022-10-03 21:00:00 63 /min [facility] Body temperature 2022-10-03 21:00:00 36.44 Su [facility] Body height 2022-10-03 21:00:00 162.6 cm [facility] Body weight 2022-10-03 21:00:00 94.031 kg [facility] BMI 2022-10-03 21:00:00 35.58 kg/m2 [facility] Oxygen saturation in Arterial blood by Pulse oximetry 2022-10-03 21:00:00 94 /min [facility] Systolic blood pressure 2022-09-23 19:43:00 120 mm[Hg] [facility] Diastolic blood pressure 2022-09-23 19:43:00 57 mm[Hg] [facility] Heart rate 2022-09-23 19:43:00 72 /min [facility] Body temperature 2022-09-23 19:43:00 36.67 Su [facility] Body height 2022-09-23 19:43:00 162.6 cm [facility] Body weight 2022-09-23 19:43:00 91.853 kg [facility] BMI 2022-09-23 19:43:00 34.76 kg/m2 [facility] Oxygen saturation in Arterial blood by Pulse oximetry 2022-09-23 19:43:00 94 /min [facility] Systolic blood pressure 2022-09-19 17:09:00 158 mm[Hg] [facility] Diastolic blood pressure 2022-09-19 17:09:00 75 mm[Hg] [facility] Heart rate 2022-09-19 17:09:00 62 /min [facility] Body temperature 2022-09-19 17:09:00 36.22 Su [facility] Respiratory rate 2022-09-19 17:09:00 18 /min [facility] Oxygen saturation in Arterial blood by Pulse oximetry 2022-09-19 17:09:00 93 /min [facility] Body weight 2022-09-19 10:01:00 94.575 kg [facility] BMI 2022-09-19 10:01:00 35.79 kg/m2 [facility] Body height 2022-09-17 09:52:00 162.6 cm [facility] Systolic blood pressure 2022-03-22 20:25:00 147 mm[Hg] [facility] Diastolic blood pressure 2022-03-22 20:25:00 64 mm[Hg] [facility] Heart rate 2022-03-22 20:25:00 60 [facility] in [facility]terial blood by Pulse oximetry 2022-03-22 20:25:00 99 /min [facility] Body temperature 2022-03-22 20:23:00 36.28 Su [facility] Respiratory rate 2022-03-22 20:23:00 17 /min [facility] Body weight 2022-03-22 20:23:00 93.033 kg [facility] BMI 2022-03-22 20:23:00 35.21 kg/m2 [facility] Systolic blood pressure 2022-01-09 18:15:00 144 mm[Hg] [facility] Diastolic blood pressure 2022-01-09 18:15:00 65 mm[Hg] [facility] Heart rate 2022-01-09 18:11:00 58 /min [facility] Respiratory rate 2022-01-09 18:11:00 18 /min [facility] Body height 2022-01-09 18:11:00 162.6 cm [facility] Body weight 2022-01-09 18:11:00 90.855 kg [facility] BMI 2022-01-09 18:11:00 34.38 kg/m2 [facility] Oxygen saturation in Arterial blood by Pulse oximetry 2022-01-09 18:11:00 96 /min [facility] Procedures Procedure Date / Time Performed Performing Clinician Source POCT GLUCOSE (AUTOMATED) 2024-07-09 01:57:00 Altaf Coley [facility] LIPASE 2024-07-09 00:18:00 Shahram Coley [facility] TROPONIN I 2024-07-09 00:18:00 Shahram Coley [facility] COMP. METABOLIC PANEL (05750) 2024-07-09 00:18:00 Shahram Coley [facility] CBC WITH DIFF 2024-07-09 00:18:00 Shahram Coley [facility] XR CHEST 2 VW 2024-07-08 23:37:25 Shahram Coley [facility] MR CERVICAL SPINE WO CONTRAST 2024-07-07 19:58:56 Alan Mcclain [facility] POCT GLUCOSE (AUTOMATED) 2024-04-28 21:08:00 Kenisha Lynn [facility] POCT GLUCOSE (AUTOMATED) 2024-04-28 16:32:00 Kenisha Lynn [facility] POCT GLUCOSE (AUTOMATED) 2024-04-28 12:40:00 Kenisha Lynn [facility] BASIC METABOLIC PANEL (NA, K, CL, CO2, GLUCOSE, BUN, CREATININE, CA) 2024-04-28 08:59:00 Lucy Lynn [facility] POCT GLUCOSE (AUTOMATED) 2024-04-28 01:47:00 Kenisha Lynn [facility] POCT GLUCOSE (AUTOMATED) 2024-04-27 21:42:00 Kenisha Lynn [facility] POCT GLUCOSE (AUTOMATED) 2024-04-27 16:24:00 Kenisha Lynn [facility] TRANSTHORACIC ECHO (TTE) COMPLETE 2024-04-27 15:14:00 Bruce Bates [facility] POCT GLUCOSE (AUTOMATED) 2024-04-27 12:40:00 Kenisha Lynn [facility] MAGNESIUM 2024-04-27 08:49:00 Mitul [facility] BASIC METABOLIC PANEL (NA, K, CL, CO2, GLUCOSE, BUN, CREATININE, CA) 2024-04-27 08:49:00 Mitul West [facility] CBC WITH DIFF 2024-04-27 08:49:00 [facility] PO[facility] GLUCOSE (AUTOMATED) 2024-04-27 06:51:00 Kenisha Lynn [facility] POCT GLUCOSE (AUTOMATED) 2024-04-27 01:49:00 Kenisha Lynn [facility] POCT GLUCOSE (AUTOMATED) 2024-04-26 20:57:00 Kenisha Lynn [facility] POCT GLUCOSE (AUTOMATED) 2024-04-26 16:23:00 Kenisha Lynn [facility] POCT GLUCOSE (AUTOMATED) 2024-04-26 12:53:00 Kenisha Lynn [facility] MAGNESIUM 2024-04-26 09:01:[address] [facility] BASIC METABOLIC PANEL (NA, K, CL, CO2, GLUCOSE, BUN, CREATININE, CA) 2024-04-26 09:01:00 Kenan [facility] CBC WITH DIFF 2024-04-26 09:01:00 Kenan [facility] CRITICAL CARE 2024-04-26 04:24:58 Dustin Maharaj [facility] DUPLEX VENOUS LEG LEFT - BY VASCULAR LAB 2024-04-26 02:35:00 Dustin Maharaj [facility] URINALYSIS 2024-04-26 02:32:00 [facility] THROAT CULTURE 2024-04-26 02:20:00 Dustin Maharaj [facility] RAPID STREP SCREEN FOR GROUP A 2024-04-26 02:20:00 Dustin Maharaj [facility] INFLUENZA A/B RSV COVID NAAT 2024-04-26 02:20:00 Dustin Maharaj [facility] LAB ONLY COVID INTERPRETATION 2024-04-26 02:20:00 Dustin Maharaj [facility] LIPASE 2024-04-26 02:16:[address] [facility] MAGNESIUM 2024-04-26 02:16:00 [facility]in [facility] TROPONIN I 2024-04-26 02:16:00 Maharaj, Dustin [facility] COMP. METABOLIC PANEL (90945) 2024-04-26 02:16:00 Dustin Maharaj [facility] CBC WITH DIFF 2024-04-26 02:16:00 Dustin Maharaj [facility] GLYCOSYLATED HEMOGLOBIN (A1C) 2024-04-26 02:16:00 Shira Salgado [facility] N-TERMINAL PRO-BNP 2024-04-26 02:16:00 Dustin Maharaj [facility] HB ECG ROUTINE & RHYTHM STRIP 2024-04-26 02:10:27 Dustin Maharaj [facility] EXTERNAL PROVIDER RECORDS 2023-10-07 06:01:00 Do ctor Unassigned, [place] [facility] AUTHORIZATION FOR RELEASE OF PHI 2023-10-03 06:01:00 Doctor Unassigned, [place] [facility] AUTHORIZATION FOR RELEASE OF PHI 2023-09-30 06:01:00 Doctor Unassigned, [place] [facility] AUTHORIZATION FOR RELEASE OF PHI 2023-09-11 06:01:00 Doctor Unassigned, [place] [facility] SLEEP STUDY DATA REPORT 2023-02-20 05:01:00 Doct or Unassigned, [place] [facility] MEDICAL RELEASE/CLEARANCE FORMS 2023-02-10 05:01:00 Doctor Unassigned, [place] [facility] XR CHEST 1 2022-11-07 23:24:39 [facility]ST 1 2022-11-07 23:24:39 [facility] ELECTROPHYSIOLOGY PROCEDURE 2022-11-07 21:50:49 Eduardo Esteban [facility] ELECTROPHYSIOLOGY PROCEDURE 2022-11-07 21:50:00 Eduardo Esteban [facility] CATH PROCEDURE LOG 2022-11-07 20:41:05 [facility] CATH PROCEDURE LOG 2022-11-07 20:41:05 Edu[facility] HB ECG ROUTINE & RHYTHM STRIP 2022-11-07 19:06:44 Eduardo Esteban [facility] ASSIGNMENT OF BENEFITS 2022-11-07 17:53:08 Docto r Unassigned, [place] [facility] POCT GLUCOSE (AUTOMATED) 2022-09-19 17:29:00 Russell Paul [facility] POCT GLUCOSE (AUTOMATED) 2022-09-19 13:40:00 Russell Paul [facility] POCT GLUCOSE (AUTOMATED) 2022-09-19 01:48:00 Russell Paul [facility] POCT GLUCOSE (AUTOMATED) 2022-09-18 22:36:00 Russell Paul [facility] POCT GLUCOSE (AUTOMATED) 2022-09-18 17:20:00 Russell Paul [facility] POCT GLUCOSE (AUTOMATED) 2022-09-18 13:48:00 Russell Paul [facility] TROPONIN I 2022-09-18 10:37:00 Bruce Bates [facility] BASIC METABOLIC PANEL (NA, K, CL, CO2, GLUCOSE, BUN, CREATININE, CA) 2022-09-18 10:37:00 Francine Hein [facility] LIPID PANEL ([id number])(TOTAL CHOLESTEROL, TRIGLYCERIDES, HDL) 2022-09-18 10:37:00 Bruce Bates.HDrew [facility] N-TERMINAL PRO-BNP 2022-09-18 10:37:00 Bruce Bates.HDrew [facility] POCT GLUCOSE (AUTOMATED) 2022-09-18 02:57:00 Russell Paul [facility] POCT GLUCOSE (AUTOMATED) 2022-09-17 22:33:00 Russell Paul [facility] MAGNESIUM 2022-09-17 20:25:00 Russell [facility] BASIC METABOLIC PANEL (NA, K, CL, CO2, GLUCOSE, BUN, CREATININE, CA) 2022-09-17 20:25:00 Russell Paul [facility] TRANSTHORACIC ECHO (TTE) COMPLETE 2022-09-17 19:43:00 Russell Paul [facility] POCT GLUCOSE (AUTOMATED) 2022-09-17 17:33:00 Russell Paul [facility] POCT GLUCOSE (AUTOMATED) 2022-09-17 13:43:00 Russell Paul [facility] TROPONIN I 2022-09-17 10:44:00 Shira Salgado [facility] CBC WITH DIFF 2022-09-17 10:44:00 Russell Paul [facility] URINALYSIS 2022-09-16 22:00:00 [facility] X[facility] CHEST 1 VW 2022-09-16 21:37:25 Jacki Samuels [facility] HB ECG ROUTINE & RHYTHM STRIP 2022-09-16 21:23:34 Jacki Samuels [facility] MAGNESIUM 2022-09-16 21:19:00 [facility] TROPONIN I 2022-09-16 21:19:00 Jacki Samuels [facility] THYROID STIMULATING HORMONE 2022-09-16 21:19:00 Jacki Razo ms [facility] COMP. METABOLIC PANEL ([id number]) 2022-09-16 21:19:00 Jacki Samuels [facility] CBC WITH DIFF 2022-09-16 21:19:00 Jacki Samuels U [facility] GLYCOSYLATED HEMOGLOBIN (A1C) 2022-09-16 21:19:00 Shira Salgado [facility] HB ECG ROUTINE & RHYTHM STRIP 2022-09-16 21:13:59 Jacki Samuels [facility] NOTICE OF PRIVACY PRACTICES 2022-09-16 20:53:33 Doctor Unassigned, [place] [facility] CONSENT/REFUSAL FOR DIAGNOSIS AND TREATMENT 2022-09-16 20:53:06 Doctor Unassigned, [place] [facility] MEDICAL RELEASE/CLEARANCE FORMS 2022-07-10 06:01:00 Doctor Unassigned, [place] [facility] DME/SUPPLY JUSTIFICATION 2022-06-04 05:01:00 Doc tor Unassigned, [place] [facility] DME/SUPPLY JUSTIFICATION 2019-12-19 05:01:00 Doc tor Unassigned, [place] [facility] Encounters Start Date/Time End Date/Time Encounter Type Admission Type Attending Clinicians Care Facility Care Department Encounter ID Source 2024-07-20 10:00:00 2024-07-20 10:50:14 Outpatient ALAN MEMBRENO HOWARD [facility] [id number] [facility] 2024-07-20 10:00:00 2024-07-20 10:50:14 Office Visit Alan Mcclain [facility] 1.2.840.114 350.1.13.10 4.2.7.2.686 [id number] [facility] 2024-07-08 17:12:00 2024-07-08 20:43:00 Emergency Shahram Coley [facility] 1.2.840.114 350.1.13.10 4.2.7.2.686 [id number] [facility] 2024-07-08 17:12:00 2024-07-08 20:43:00 Emergency X SHAHRAM COLEY ERICCA [facility] ERT [id number] [facility] 2024-07-07 12:30:03 2024-07-07 23:59:00 Outpatient ALAN MEMBRENO [facility] [id number] [facility] 2024-07-07 12:30:03 2024-07-07 23:59:00 Hospital Encounter Alan Mcclain [facility] 1.2.840.114 350.1.13.10 4.2.7.2.686 [id number] [facility] 2024-06-03 13:05:59 2024-06-03 23:59:00 Outpatient LILI BROWNING [facility] [id number] [facility] 2024-06-03 13:05:59 2024-06-03 23:59:00 Hospital Encounter Lili Garcias [facility] 1..840.114 350.1.13.10 4.2.7.2.686 [id number] [facility] 2024-05-24 11:40:00 2024-05-24 11:40:00 Outpatient ALAN MEMBRENO HOWARD [facility] [id number] [facility] 2024-05-06 20:00:00 2024-05-06 20:00:00 Outpatient LOTTIE PUENTE STRANCVicky [facility] [id number] [facility] 2024-04-29 00:00:00 2024-04-29 15:55:43 Transition of Care Smith Niya MANDUJANO 1..840.114 350.1.13.10 4.2.7.2.686 [id number] [facility] 2024-04-25 20:44:00 2024-04-28 18:24:00 Inpatient Mia LUCY LYNN [facility] [id number] [facility] 2024-04-25 20:44:00 2024-04-28 18:24:00 Hospital Encounter Dustin Maharaj [facility] 1..840.114 350.1.13.10 4.2.7.2.686 [id number] [facility] 2024-04-23 14:20:00 2024-04-23 15:28:41 Outpatient ALAN MEMBRENO HOWARD [facility] [id number] [facility] 2024-04-23 14:20:00 2024-04-23 15:28:41 Office Visit Alan Mcclain [facility] 1..840.114 350.1.13.10 4.2.7.2.686 [id number] [facility] 2024-04-12 20:00:00 2024-04-12 22:30:00 Whizzer Hand Visit 1, [facility] Sleep Lab Bed Lottie Truong T 1, [facility] Sleep Lab Bed [facility] 1.114 350.1.13.10 4.2.7.2.686 [id number] [facility] 2024-04-12 20:00:00 2024-04-12 20:00:00 Outpatient R LOTTIE TRUONG STRAHIL [facility] [id number] [facility] 2024-04-09 00:00:00 2024-04-09 10:24:39 [facility] 1..114 350.1.13.10 4.2.7.2.686 [id number] [facility] 2015-11-25 00:00:00 2024-02-17 02:33:24 Mobile Device Encounter [facility] [place] [facility] 1.114 350.1.13.10 4.2.7.2.686 [id number] [facility] 2023-12-29 00:00:00 2023-12-29 23:59:00 Outpatient R ALEXEY CLARKE HAIDER [facility] [id number] [facility] 2023-12-29 00:00:00 2023-12-29 23:59:00 Hospital Encounter Alexey Clarke [facility] 1.114 350.1.13.10 4.2.7.2.686 [id number] [facility] 2023-10-29 00:00:00 2023-10-29 00:00:00 Patient Secure Msg Doctor Unassigned, [place] [facility] 1.84.114 350.1.13.10 4.2.7.2.686 [id number] [facility] 2023-10-07 00:00:00 2023-10-07 00:00:00 Orders Only Doctor Unassigned, [place] [facility] 1.2.840.114 350.1.13.10 4.2.7.2.686 [id number] [facility] 2023-10-03 00:00:00 2023-10-03 00:00:00 Orders Only Doctor Unassigned, [place] [facility] 1.2.840.114 350.1.13.10 4.2.7.2.686 [id number] [facility] 2023-09-30 00:00:00 2023-09-30 00:00:00 Orders Only Doctor Unassigned, [place] [facility] 1.2.840.114 350.1.13.10 4.2.7.2.686 [id number] [facility] 2023-09-12 00:00:00 2023-09-12 00:00:00 Telephone [facility] 1.2.840.114 350.1.13.10 4.2.7.2.686 [id number] [facility] 2023-09-11 00:00:00 2023-09-11 00:00:00 Orders Only Doctor Unassigned, [place] [facility] 1.2.840.114 350.1.13.10 4.2.7.2.686 [id number] [facility] 2023-07-03 11:30:00 2023-07-03 11:30:00 Outpatient RICARDO DOMINGUEZ MUHIE [facility] [id number] [facility] 2023-06-30 00:00:00 2023-06-30 23:59:00 Outpatient JESSIE KAPOORYFN JESISE Madhu [facility] [id number] [facility] 2023-06-30 00:00:00 2023-06-30 23:59:00 Hospital Encounter Reji Jessie madhu [facility] 1..840.114 350.1.13.10 4.2.7.2.686 [id number] [facility] 2023-06-04 11:00:00 2023-06-04 11:00:00 Outpatient R LOTTIE TRUONG, STRAHIL [facility] [id number] [facility] 2023-05-21 20:00:00 2023-05-21 20:00:00 Outpatient R LOTTIE TRUONG, STRANCL [facility] [id number] [facility] 2023-04-23 14:30:00 2023-04-23 14:30:00 Outpatient R LOTTIE TRUONG, STRAHIL [facility] [id number] [facility] 2023-04-21 14:30:00 2023-04-21 14:30:00 Outpatient BRUCE MERCADO [facility] [id number] [facility] 2023-04-17 00:00:00 2023-04-17 00:00:00 Bruce [facility] 1..840.114 350.1.13.10 4.2.7.2.686 [id number] [facility] 2023-03-21 11:00:00 2023-03-21 11:00:00 Outpatient EDUARDO BERRIOS [facility] [id number] [facility] 2023-02-20 20:00:00 2023-02-20 22:30:00 Whizzer Hand Visit 1, [facility] Sleep Lab Bed Lottie Truong [facility] 1..840.114 350.1.13.10 4.2.7.2.686 [id number] [facility] 2023-02-20 20:00:00 2023-02-20 20:00:00 Outpatient LOTTIE PUENTE STRAHIL [facility] [id number] [facility] 2023-02-20 00:00:00 2023-02-20 00:00:00 Orders Only Doctor Unassigned, [place] [facility] 1.2840.114 350.1.13.10 4.2.7.2.686 [id number] [facility] 2023-02-18 00:00:00 2023-02-18 00:00:00 Telephone Bruce Bates K.H. [facility] 1.2840.114 350.1.13.10 4.2.7.2.686 [id number] [facility] 2023-02-10 00:00:00 2023-02-10 00:00:00 Telephone Bruce Bates [employer] [facility] 1.2840.114 350.1.13.10 4.2.7.2.686 [id number] [facility] 2023-02-10 00:00:00 2023-02-10 00:00:00 Orders Only Doctor Unassigned, [place] [facility] 1.2840.114 350.1.13.10 4.2.7.2.686 [id number] [facility] 2023-02-06 00:00:00 2023-02-06 00:00:00 Telephone Bruce Bates [employer] [facility] 1.2.840.114 350.1.13.10 4.2.7.2.686 [id number] [facility] 2023-01-30 00:00:00 2023-01-30 00:00:00 Refill Alejandrina Bateskarina Pearl. [facility] 1.2.840.114 350.1.13.10 4.2.7.2.686 [id number] [facility] [facility]-09 00:00:00 2023-01-09 00:00:00 Refill Alejandrina Bateskarina Keyla [facility] 1.2.840.114 350.1.13.10 4.2.7.2.686 [id number] [facility] 2022-12-30 14:00:00 2022-12-30 14:00:00 Outpatient R BRUCE BATES [facility] [id number] [facility] 2022-12-26 13:32:41 2022-12-26 23:59:00 Outpatient R EDUARDO ESTEBAN [facility] [id number] [facility] 2022-12-23 14:00:00 2022-12-23 14:00:00 Outpatient R BRUCE BATES [facility] [id number] [facility] 2022-12-18 15:30:00 2022-12-18 16:00:00 Office Visit Lottie Truong [facility] 1.2.840.114 350.1.13.10 4.2.7.2.686 [id number] [facility] 2022-12-18 15:30:00 2022-12-18 15:30:00 Outpatient R LOTTIE TRUONG STRAHIL [facility] [id number] [facility] 2022-11-28 14:19:43 2022-11-28 23:59:00 Outpatient R KIRILL ALVARADO [facility] [id number] [facility] 2022-11-07 11:53:00 2022-11-08 19:04:00 Outpatient R ORLANDO EDWARD SAMEER [facility] [id number] [facility] 2022-11-07 11:53:00 2022-11-08 19:04:00 Hospital Encounter Eduardo Esteban Orlando Edward Faiza [facility] 1.2.840.114 350.1.13.10 4.2.7.2.686 [id number] [facility] 2022-11-07 13:45:00 2022-11-07 15:15:00 [facility] 1.2.840.114 350.1.13.10 4.2.7.2.686 [id number] [facility] 2022-11-07 00:00:00 2022-11-07 00:00:00 Orders Only Doctor Unassigned, [place] [facility] 1.2.840.114 350.1.13.10 4.2.7.2.686 [id number] [facility] 2022-11-06 14:30:00 2022-11-06 14:30:00 Outpatient R LOTTIE TRUONG STRAHIL [facility] [id number] [facility] 2022-11-05 12:45:00 2022-11-05 13:00:00 Whizzer Hand Visit Pob, Adc Lab Main Carl[facility] 1.2.840.114 350.1.13.10 4.2.7.2.686 [id number] [facility] 2022-11-05 12:45:00 2022-11-05 12:45:00 Outpatient R CARLITO [facility] [id number] [facility] 2022-10-24 00:00:00 2022-10-24 00:00:00 Telephone Carlito [facility] MEDICAL OFFICE BUILDING 1.2.840.114 350.1.13.10 4.2.7.2.686 [id number] [facility] 2022-10-03 15:00:00 2022-10-03 15:52:05 Outpatient R CARLITO [facility] [id number] [facility] 2022-10-03 15:00:00 2022-10-03 15:52:05 Office Visit Carlito [facility] BUILDING 1.2.840.114 350.1.13.10 4.2.7.2.686 [id number] [facility] 2022-10-01 00:00:00 2022-10-01 00:00:00 Telephone Brian George [facility] 1.2.840.114 350.1.13.10 4.2.7.2.686 [id number] [facility] 2022-10-01 00:00:00 2022-10-01 00:00:00 Telephone Carlito [facility] BUILDING 1.2.840.114 350.1.13.10 4.2.7.2.686 [id number] [facility] 2022-10-01 00:00:00 2022-10-01 00:00:00 Telephone Bruce Bates [facility] 1.2.840.114 350.1.13.10 4.2.7.2.686 [id number] [facility] 2022-09-29 00:00:00 2022-09-29 00:00:00 Telephone Cruz [facility] 1.2.840.114 350.1.13.10 4.2.7.2.686 [id number] [facility] 2022-09-29 00:00:00 2022-09-29 00:00:00 Telephone Bruce Bates [facility] 1.2.840.114 350.1.13.10 4.2.7.2.686 [id number] [facility] 2022-09-23 13:35:42 2022-09-23 23:59:00 Outpatient R BRUCE BATES [facility] [id number] [facility] 2022-09-23 13:30:00 2022-09-23 14:15:59 Office Visit Bruce Bates [facility] 1.2.840.114 350.1.13.10 4.2.7.2.686 [id number] [facility] 2022-09-20 00:00:00 2022-09-20 00:00:00 Transition of Care Niranjan [facility] 1.2.840.114 350.1.13.10 4.2.7.2.686 [id number] [facility] 2022-09-16 15:07:00 2022-09-19 15:00:00 Inpatient X LUCY LYNN [facility] [id number] [facility] 2022-09-16 15:07:00 2022-09-19 15:00:00 Hospital Encounter Jacki Samuels Yaman Morris, David [facility] 1.2.840.114 350.1.13.10 4.2.7.2.686 [id number] [facility] 2022-08-07 14:30:00 2022-08-07 14:30:00 Outpatient R BRUCE BATES [facility] [id number] [facility] 2022-07-12 13:00:00 2022-07-12 13:00:00 Outpatient R BRUCE BATES [facility] [id number] [facility] 2022-07-10 00:00:00 2022-07-10 00:00:00 Orders Only Doctor Unassigned, [place] [facility] 1.2.840.114 350.1.13.10 4.2.7.2.686 [id number] [facility] 2022-07-09 00:00:00 2022-07-09 00:00:00 Telephone Bruce Bates [facility] 1.2.840.114 350.1.13.10 4.2.7.2.686 [id number] [facility] 2022-07-08 00:00:00 2022-07-08 00:00:00 Refill Bruce Bates [facility] 1.2840.114 350.1.13.10 4.2.7.2.686 [id number] [facility] 2022-06-12 00:00:00 2022-06-12 00:00:00 Telephone Lottie Truong [facility] 1.2840.114 350.1.13.10 4.2.7.2.686 [id number] [facility] 2022-06-04 00:00:00 2022-06-04 00:00:00 Telephone Lottie Truong [facility] 1.2840.114 350.1.13.10 4.2.7.2.686 [id number] [facility] 2022-06-04 00:00:00 2022-06-04 00:00:00 Orders Only Doctor Unassigned, [place] [facility] 1.2.840.114 350.1.13.10 4.2.7.2.686 [id number] [facility] 2022-03-22 15:20:00 2022-03-22 15:50:19 Outpatient R EDUARDO ESTEBAN [facility] [id number] [facility] 2022-03-22 15:20:00 2022-03-22 15:50:19 Office Visit Eduardo Esteban [facility] BUILD[facility] 1.2.840.114 350.1.13.10 4.2.7.2.686 [id number] [facility] 2022-03-22 15:20:00 2022-03-22 15:50:19 Outpatient R EDUARDO ESTEBAN [facility] [id number] [facility] 2022-03-22 10:20:00 2022-03-22 10:20:00 Outpatient R EDUARDO ESTEBAN [facility] [id number] [facility] 2022-03-18 00:00:00 2022-03-18 00:00:00 Telephone Carlito [facility] 1.2.840.114 350.1.13.10 4.2.7.2.686 [id number] [facility] 2022-03-15 08:20:00 2022-03-15 08:20:00 Outpatient R EDUARDO ESTEBAN [facility] [id number] [facility] 2022-01-24 00:00:00 2022-01-24 00:00:00 Telephone Carlito [facility] BUILDING 1.2.840.114 350.1.13.10 4.2.7.2.686 [id number] [facility] 2022-01-10 00:00:00 2022-01-10 00:00:00 Telephone Bruce Bates [facility] 1.2.840.114 350.1.13.10 4.2.7.2.686 [id number] [facility] 2022-01-09 13:45:00 2022-01-09 14:00:00 Whizzer Hand Visit 2, Adc Lab Bruce Bates [facility] 1..840.114 350.1.13.10 4.2.7.2.686 [id number] [facility] 2022-01-09 13:00:00 2022-01-09 13:31:34 Outpatient R [facility]O [facility] [id number] [facility] 2022-01-09 13:00:00 2022-01-09 13:31:34 Outpatient R BRUCE BATES [facility] [id number] [facility] 2022-01-09 13:00:00 2022-01-09 13:31:34 Office Visit Bruce Bates [facility] 1.840.114 350.1.13.10 4.2.7.2.686 [id number] [facility] 2022-01-04 10:40:00 2022-01-04 10:40:00 Outpatient EDUARDO BERRIOS [facility] [id number] [facility] 2022-01-04 10:40:00 2022-01-04 10:40:00 Outpatient R CARLITO EDUARDO [facility] [id number] [facility] 2021-11-30 00:00:00 2021-11-30 00:00:00 Orders Only Doctor Unassigned, [place] [facility] 1.840.114 350.1.13.10 4.2.7.2.686 [id number] [facility] 2021-11-21 14:00:00 2021-11-21 14:20:00 Office Visit Lottie Truong [facility] 1..840.114 350.1.13.10 4.2.7.2.686 [id number] [facility] 2021-11-21 14:00:00 2021-11-21 14:00:00 Outpatient R MARTIN TRUONGL HARMEET, STRAHIL [facility] [id number] [facility] 2021-11-21 00:00:00 2021-11-21 00:00:00 Orders Only Doctor Unassigned, [place] [facility] 1..840.114 350.1.13.10 4.2.7.2.686 [id number] [facility] 2021-11-14 11:20:00 2021-11-14 11:40:00 Office Visit Lottie Truong [facility] 1..840.114 350.1.13.10 4.2.7.2.686 [id number] [facility] 2021-11-14 11:20:00 2021-11-14 11:20:00 Outpatient R HARMEET, STRAHIL ATANASDARA, STRAHIL [facility] [id number] [facility] 2021-11-14 11:20:00 2021-11-14 11:20:00 Outpatient R HARMEET, ANGELICAHIL HARMEET, STRAHIL [facility] [id number] [facility] 2021-11-08 09:30:00 2021-11-08 10:03:08 Outpatient R BRUCE BATES [facility] [id number] [facility] 2021-11-08 09:30:00 2021-11-08 10:03:08 Office Visit Bruce Bates [facility] 1..840.114 350.1.13.10 4.2.7.2.686 [id number] [facility] 2021-11-08 09:30:00 2021-11-08 10:03:08 Outpatient R BRUCE BATES [facility] [id number] [facility] 2021-11-08 09:30:00 2021-11-08 09:30:00 Outpatient R BRUCE BATES [facility] [id number] [facility] 2021-11-07 08:37:56 2021-11-07 23:59:00 Outpatient R CHATO KNOX [facility] [id number] [facility] 2021-11-07 08:37:56 2021-11-07 23:59:00 Hospital Encounter Chato Knox [facility] 1.2.840.114 350.1.13.10 4.2.7.2.686 [id number] [facility] 2021-11-07 08:37:56 2021-11-07 23:59:00 Outpatient R CHATO KNOX [facility] [id number] [facility] 2021-11-01 00:00:00 2021-11-01 00:00:00 Patient Secure Msg Doctor Unassigned, [place] [facility] 1.2.840.114 350.1.13.10 4.2.7.2.686 [id number] [facility] 2021-10-29 00:00:00 2021-10-29 00:00:00 Orders Only Doctor Unassigned, [place] [facility] 1.2.840.114 350.1.13.10 4.2.7.2.686 [id number] [facility] 2021-10-25 10:32:00 2021-10-26 15:28:00 Outpatient R IGNACIA CRUZ [facility] [id number] [facility] 2021-10-25 07:00:00 2021-10-25 07:00:00 Outpatient R EDUARDO ESTEBAN [facility] [id number] [facility] 2021-10-23 19:30:00 2021-10-23 22:00:00 Whizzer Hand Visit 1, [facility] Sleep Lab Bed Lottie Truong [facility] 1.2.840.114 350.1.13.10 4.2.7.2.686 [id number] [facility] 2021-10-23 19:30:00 2021-10-23 19:30:00 Outpatient R ANGELICA TRUONGKRISTY ANGELICA TRUONGNCVicky [facility] [id number] [facility] 2021-10-23 13:15:00 2021-10-23 13:30:00 Laboratory Only Only, [facility] Test Eduardo Esteban [facility] 1.2.840.114 350.1.13.10 4.2.7.2.686 [id number] [facility] 2021-10-23 00:00:00 2021-10-23 00:00:00 Orders Only Angelica Truongkristy [facility]ESSIO [facility] BUILDING 1.2840.114 350.1.13.10 4.2.7.2.686 [id number] [facility] 2021-10-22 10:08:26 2021-10-22 23:59:00 Outpatient R CARLITO [facility] [id number] [facility] 2021-10-22 10:08:26 2021-10-22 23:59:00 Hospital Encounter Len Estebanf [facility] 1.2840.114 350.1.13.10 4.2.7.2.686 [id number] [facility] 2021-10-17 00:00:00 2021-10-17 00:00:00 Telephone Alan Harding BUILDING 1.2840.114 350.1.13.10 4.2.7.2.686 [id number] [facility] 2021-09-29 19:30:00 2021-09-29 19:30:00 Outpatient R LOTTIE TRUONG GIUSEPPEALANISLOTTIE RAMSEY [facility] [id number] [facility] 2021-09-27 10:00:00 2021-09-27 10:00:00 Outpatient R [facility] [id number] [facility] 2021-09-25 09:30:00 2021-09-25 23:59:00 Hospital Encounter [facility] 1.2.840.114 350.1.13.10 4.2.7.2.686 [id number] [facility] 2021-09-25 09:00:00 2021-09-25 09:00:00 Hospital Encounter [facility] 1.2.840.114 350.1.13.10 4.2.7.2.686 [id number] [facility] 2021-09-25 00:00:00 2021-09-25 00:00:00 Outpatient R CARLITO [facility] [id number] [facility] 2021-09-24 00:00:00 2021-09-24 00:00:00 Telephone Neida Clint [facility] 1.2.840.114 350.1.13.10 4.2.7.2.686 [id number] [facility] 2021-09-21 00:00:00 2021-09-21 00:00:00 Telephone [facility] 1.2.840.114 350.1.13.10 4.2.7.2.686 [id number] [facility] 2021-09-19 00:00:00 2021-09-19 00:00:00 Telephone [facility] 1.2.840.114 350.1.13.10 4.2.7.2.686 [id number] [facility] 2021-09-19 00:00:00 2021-09-19 00:00:00 Telephone [facility] 1.2.840.114 350.1.13.10 4.2.7.2.686 [id number] [facility] 2021-09-18 00:00:00 2021-09-18 00:00:00 Telephone [facility] 1.2.840.114 350.1.13.10 4.2.7.2.686 [id number] [facility] 2021-09-06 08:00:00 2021-09-06 08:00:00 Outpatient R BISMARKLEN SANDERSF [facility] [id number] [facility] 2021-08-22 10:40:00 2021-08-22 11:03:10 Outpatient R LOTTIE TRUONG STRAHIL [facility] [id number] [facility] 2021-08-22 10:40:00 2021-08-22 11:03:10 Office Visit Lottie Truong [facility] 1.2.840.114 350.1.13.10 4.2.7.2.686 [id number] [facility] 2021-08-22 00:00:00 2021-08-22 00:00:00 Telephone Carlito [facility] BUILDING 1.2.840.114 350.1.13.10 4.2.7.2.686 [id number] [facility] 2021-08-15 15:20:00 2021-08-15 15:40:00 Office Visit GiuseppealanisLottie ramsey [facility] BUILDING 1.2.840.114 350.1.13.10 4.2.7.2.686 [id number] [facility] 2021-08-15 15:20:00 2021-08-15 15:20:00 Outpatient R LOTTIE TRUONG GIUSEPPEHTIESH LOTTIE [facility] [id number] [facility] 2021-08-07 00:00:00 2021-08-07 00:00:00 [facility] 1.2.840.114 350.1.13.10 4.2.7.2.686 [id number] [facility] 2021-07-31 08:47:17 2021-07-31 09:53:27 Office Visit Carlito [facility] 1.2.840.114 350.1.13.10 4.2.7.2.686 [id number] [facility] 2021-07-31 08:40:00 2021-07-31 09:53:27 Outpatient R CARLITO [facility] [id number] [facility] 2021-07-31 08:40:00 2021-07-31 09:53:27 Outpatient R CARLITO [facility] [id number] [facility] 2021-07-31 08:40:00 2021-07-31 09:53:27 Outpatient R CARLITO [facility] [id number] [facility] 2021-07-30 09:03:56 2021-07-30 09:49:07 Office Visit Bruce Bates [facility] 1.2.840.114 350.1.13.10 4.2.7.2.686 [id number] [facility] 2021-07-30 09:00:00 2021-07-30 09:49:07 Outpatient R BRUCE BATES [facility] [id number] [facility] 2021-07-30 09:00:00 2021-07-30 09:00:00 Outpatient R BRUCE BATES [facility] [id number] [facility] 2021-07-30 00:00:00 2021-07-30 00:00:00 Transition of Care Niya Smith 1.840.114 350.1.13.10 4.2.7.2.686 [id number] [facility] 2021-07-21 15:01:00 2021-07-26 17:17:00 Inpatient X ROGELIO RUSSELL [facility] JOS[facility]UA [id number] [facility] 2021-07-21 15:01:00 2021-07-26 17:17:00 Hospital Encounter Jacki Samuels Russell [facility] 1..114 350.1.13.10 4.2.7.2.686 [id number] [facility] 2021-07-18 09:30:00 2021-07-18 10:51:09 Outpatient ALBINA SEWELL [facility] [id number] [facility] 2021-07-18 09:30:00 2021-07-18 10:51:09 Outpatient ALBINA SEWELL [facility] [id number] [facility] 2021-07-18 09:25:01 2021-07-18 10:51:09 Office Visit Alan Harding [facility] ..114 350.1.13.10 4.2.7.2.686 [id number] [facility] 2021-07-10 00:00:00 2021-07-10 00:00:00 Telephone Bruce Bates [facility] 1.84.114 350.1.13.10 4.2.7.2.686 [id number] [facility] 2021-07-02 00:00:00 2021-07-02 00:00:00 Telephone Bruce Bates [facility] PROFESS[facility] BUILDING 1.2.840.114 350.1.13.10 4.2.7.2.686 [id number] [facility] 2021-06-21 08:14:54 2021-06-21 23:59:00 Hospital Encounter Bruce Bates [facility] 1.2.840.114 350.1.13.10 4.2.7.2.686 [id number] [facility] 2021-06-21 08:14:18 2021-06-21 23:59:00 Hospital Encounter Bruce Bates [facility] 1.2.840.114 350.1.13.10 4.2.7.2.686 [id number] [facility] 2021-06-21 08:14:06 2021-06-21 23:59:00 Hospital Encounter Bruce Bates [facility] 1.2.840.114 350.1.13.10 4.2.7.2.686 [id number] [facility] 2021-06-21 08:13:21 2021-06-21 08:13:21 Hospital Encounter Bruce Bates [facility] 1.2.840.114 350.1.13.10 4.2.7.2.686 [id number] [facility] 2021-06-21 08:13:10 2021-06-21 08:13:10 Hospital Encounter Bruce Bates [facility] 1.2.840.114 350.1.13.10 4.2.7.2.686 [id number] [facility] 2021-06-21 00:00:00 2021-06-21 00:00:00 Outpatient BRUCE BATES [facility] [id number] [facility] 2021-06-20 00:00:00 2021-06-20 00:00:00 Telephone Bruce Bates [facility] 1.2.840.114 350.1.13.10 4.2.7.2.686 [id number] [facility] 2021-06-20 00:00:00 2021-06-20 00:00:00 Telephone Kellie Barfield [facility] 1.2.840.114 350.1.13.10 4.2.7.2.686 [id number] [facility] 2021-06-19 00:00:00 2021-06-19 00:00:00 Orders Only Doctor Unassigned, [place] [facility] 1.2840.114 350.1.13.10 4.2.7.2.686 [id number] [facility] 2021-06-18 12:54:16 2021-06-18 23:59:00 Hospital Encounter Bruce Bates [facility] 1.2.840.114 350.1.13.10 4.2.7.2.686 [id number] [facility] 2021-06-18 13:00:00 2021-06-18 13:00:00 Outpatient R BRUCE BATES [facility] [id number] [facility] 2021-06-13 00:00:00 2021-06-13 00:00:00 Orders Only Doctor Unassigned, [place] [facility] 1.2840.114 350.1.13.10 4.2.7.2.686 [id number] [facility] 2021-06-12 16:07:13 2021-06-12 23:59:00 Hospital Encounter Bruce Bates [facility] 1.2.840.114 350.1.13.10 4.2.7.2.686 [id number] [facility] 2021-06-12 10:15:52 2021-06-12 11:10:12 Office Visit Bruce Bates [facility] 1.2.840.114 350.1.13.10 4.2.7.2.686 [id number] [facility] 2021-06-12 10:00:00 2021-06-12 10:00:00 Outpatient R BRUCE BATES [facility] [id number] [facility] 2021-06-12 00:00:00 2021-06-12 00:00:00 Orders Only Doctor Unassigned, [place] [facility] 1.2.840.114 350.1.13.10 4.2.7.2.686 [id number] [facility] 2021-01-04 00:00:00 2021-01-04 00:00:00 Refill Bruce Bates [facility] 1.2.840.114 350.1.13.10 4.2.7.2.686 [id number] [facility] 2020-12-28 00:00:00 2020-12-28 00:00:00 Refill Bruce Bates [facility] 1.2.840.114 350.1.13.10 4.2.7.2.686 [id number] [facility] 2020-11-04 00:00:00 2020-11-04 00:00:00 Orders Only Doctor Unassigned, [place] [facility] 1.2.840.114 350.1.13.10 4.2.7.2.686 [id number] [facility] 2020-09-15 00:00:00 2020-09-15 00:00:00 Telephone Bruce Bates [facility] 1.2.840.114 350.1.13.10 4.2.7.2.686 [id number] [facility] 2020-06-12 14:47:16 2020-06-27 13:33:27 Office Visit Bruce Bates [facility] 1.2840.114 350.1.13.10 4.2.7.2.686 [id number] 2020-06-12 14:47:16 2020-06-27 13:33:27 Office Visit Bruce Bates [facility] 1.2.840.114 350.1.13.10 4.2.7.2.686 [id number] [facility] 2020-06-27 00:00:00 2020-06-27 00:00:00 Orders Only Doctor Unassigned, [place] [facility] 1.2840.114 350.1.13.10 4.2.7.2.686 [id number] [facility] 2020-06-27 00:00:00 2020-06-27 00:00:00 Telephone Bruce Bates [facility] 1.2.840.114 350.1.13.10 4.2.7.2.686 [id number] [facility] 2020-06-27 00:00:00 2020-06-27 00:00:00 Telephone Bruce Bates [facility] 1.2.840.114 350.1.13.10 4.2.7.2.686 [id number] 2020-06-21 16:00:00 2020-06-21 16:00:00 Outpatient R [facility] [id number] [facility] 2020-06-16 16:00:00 2020-06-16 16:00:00 Outpatient R [facility] [id number] [facility] 2020-06-12 14:30:00 2020-06-12 14:30:00 Outpatient R BRUCE BATES [facility] [id number] [facility] 2020-06-12 00:00:00 2020-06-12 00:00:00 Orders Only Doctor Unassigned, [place] [facility] 1..840.114 350.1.13.10 4.2.7.2.686 [id number] [facility] 2020-05-26 09:37:13 2020-05-26 11:46:55 Office Visit Alan Mcclain [facility] 1..840.114 350.1.13.10 4.2.7.2.686 [id number] [facility] 2020-05-26 09:20:00 2020-05-26 09:20:00 Outpatient R ALAN MCCLAIN [facility] [id number] [facility] 2020-05-22 09:00:00 2020-05-22 09:00:00 Outpatient R BRUCE BATES [facility] [id number] [facility] 2020-05-12 00:00:00 2020-05-12 00:00:00 Telephone Alan Mcclain [facility] 1..840.114 350.1.13.10 4.2.7.2.686 [id number] [facility] 2020-04-28 15:30:00 2020-04-28 15:30:00 Outpatient BRUCE MERCADO [facility] [id number] [facility] 2020-04-18 10:49:27 2020-04-18 23:59:00 Hospital Alan [facility] 1..840.114 350.1.13.10 4.2.7.2.686 [id number] [facility] 2020-04-18 00:00:00 2020-04-18 00:00:00 Outpatient ALAN MEMBRENOOCHALAN [facility] [id number] [facility] 2020-04-11 13:24:22 2020-04-11 14:07:49 Office Visit Alan [place] [facility] 1..840.114 350.1.13.10 4.2.7.2.686 [id number] [id number] [facility] 2020-04-11 13:40:00 2020-04-11 13:40:00 Outpatient ALAN MEMBRENO HOWARD [facility] [id number] [facility] 2020-04-11 00:00:00 2020-04-11 00:00:00 Orders Only Doctor Unassigned, [place] [id number] 350.1.13.10 4.2.7.2.686 [id number] [facility] 2020-03-09 00:00:00 2020-03-09 00:00:00 Orders Only Doctor Unassigned, [place] [facility] 1.2840.114 350.1.13.10 4.2.7.2.686 [id number] [facility] 2020-01-05 11:30:00 2020-01-05 11:30:00 Outpatient LOTTIE PUENTE STRAHIL [facility] [id number] [facility] 2020-01-05 09:17:42 2020-01-05 09:47:42 Telemedici ne Visit Lottie Truong [facility] 1.2.840.114 350.1.13.10 4.2.7.2.686 [id number] [facility] 2019-12-19 00:00:00 2019-12-19 00:00:00 Orders Only Doctor Unassigned, [place] [facility] 1.2.840.114 350.1.13.10 4.2.7.2.686 [id number] [id number] [facility] 2019-04-22 15:39:26 2019-04-22 16:24:54 Office Visit Bruce Bates [facility] 1.2.840.114 350.1.13.10 4.2.7.2.686 [id number] [facility] 2019-04-22 00:00:00 2019-04-22 00:00:00 Orders Only Doctor Unassigned, [place] [facility] 1.2.840.114 350.1.13.10 4.2.7.2.686 [id number] [id number] [facility] 2019-04-07 10:03:10 2019-04-07 10:33:10 Office Visit Lottie Truong [facility] 1.2.840.114 350.1.13.10 4.2.7.2.686 [id number] [facility] 2019-04-07 00:00:00 2019-04-07 00:00:00 Orders Only Doctor Unassigned, [place] [facility] 1.2.840.114 350.1.13.10 4.2.7.2.686 [id number] [id number] [facility] Results Test Description Test Time Test Comments Results Result Co [facility]ments Source [facility] [id number] 01:02:43* Test Item Value Reference Range Interpretation Comme nts TROPONIN I (test code = 8145162634) <=0.034 ZAK (test code = ZAK) Reference [...] of biotin. Lab Interpretation (test code = 93121-8) Normal [facility]. METABOLIC PANEL (97518)2024-07-09 00:52:37* Test Item Value Reference Range Interpretation Comme nts NA (test code = 0664166984) 134 mmol/L 135-145 L K (test code = 8337836354) 4.0 mmol/L 3.5-5.0 CL (test code = 1431254328) 101 mmol/L 98-108 CO2 TOTAL (test code = 6388730377) 25 mmol/L 23-31 AGAP (test code = 7458058547) 8 2-16 BUN (test code = 9428693026) 22 mg/dL 7-23 GLUCOSE (test code = 6521196749) 278 mg/dL 70-110 H CREATININE (test code = 2160-0) 0.90 mg/dL 0.50-1.04 TOTAL BILI (test code = 5501584586) 1.0 mg/dL 0.1-1.1 CALCIUM (test code = 1690653469) 9.5 mg/dL 8.6-10.6 T PROTEIN (test code = 3729546616) 7.1 g/dL 6.3-8.2 ALBUMIN (test code = 5801719423) 4.2 g/dL 3.5-5.0 ALK PHOS (test code = 1913360505) 74 U/L 34-122 ALTv (test code = 1742-6) 22 U/L 5-35 AST(SGOT) (test code = 3715252853) 25 U/L 13-40 eGFR (test code = 92424-6) 69.8 mL/min/1.73m2 CKD-EPI eGFR (2020). Assuming creatinine has been stable day-to-day for at least three months, the eGFR indicates Category G2 (60 - 89 mL/min/1.73 m2) Lab Interpretation (test code = 67942-5) [facility] 00:52:01* Test Item Value Reference Range Interpretation Comme nts LIPASE (test code = 5171199922) 107 U/L 0-220 Lab Interpretation (test cod e = 42417-0) [facility] 2 [id number] 00:42:21CHEST X-RAY PA & LATERAL 07/08/2024 6:41 [...] thevisualized skeleton. Degenerative change of the thoracic spine.[facility] WITH [id number] 00:33:38* Test Item Value Reference Range Interpretation [...] 33.3 g/dL 31.6-35.1 RDW-SD (test code = 28564-9) 43.9 fL 39.0-49.9 RDW-CV (test code = 788-0) 13.2 % 12.0-15.5 PLT (test code = 777-3) 249 166-358 MPV (test code = 05516-5) 9.5 fL 9.5-12.9 NRBC/100 WBC (test code = 5662254022) 0.0 0.0-10.0 NRBC x10^3 (test code = 7052767466) See_Comment [Automated me ssage] The system which generated this result transmitted reference range: 10*3/?L. The reference range was not used to interpret this result as normal/abnormal. GRAN MAT (NEUT) % (test code = 770-8) 64.9 % IMM GRAN % (test code = 7791827139) 0.30 % LYMPH % (test code = 736-9) 25.1 % MONO % (test code = 5905-5) 7.8 % EOS % (test code = 713-8) 1.2 % BASO % (test code = 706-2) 0.7 % GRAN MAT x10^3(ANC) (test code = 7927899588) 6.16 10*3/uL 1.88-7.09 IMM GRAN x10^3 (test code = 0011743993) 0.03 10*3/uL 0.00-0.06 LYMPH x10^3 (test code = 731-0) 2.38 10*3/uL 1.32-3.29 MONO x10^3 (test code = 742-7) 0.74 10*3/uL 0.33-0.92 EOS x10^3 (test code = 711-2) 0.11 10*3/uL 0.03-0.39 BASO x10^3 (test code = 704-7) 0.07 10*3/uL 0.01-0.07 [facility] WO [id number] 20:42:35EXAM: MR CERVICAL SPINE WO CONTRAST HISTORY: [...] that results in mild to moderate spinal canalstenosis.[facility] GLUCOSE (AUTOMATED)2024-04-28 21:09:50* Test Item Value Reference Range Interpretation Comme nts POCT GLU (test code = 5302687092) 130 mg/dL 70-110 H Lab Interpretation (test cod e = 87040-0) Abnormal [facility] GLUCOSE (AUTOMATED)2024-04-28 16:32:51* Test Item Value Reference Range Interpretation Comme nts POCT GLU (test code = 7713133822) 138 mg/dL 70-110 H Lab Interpretation (test cod e = 50726-2) Abnormal [facility] GLUCOSE (AUTOMATED)2024-04-28 12:40:49* Test Item Value Reference Range Interpretation Comme nts POCT GLU (test code = 6862427107) 98 mg/dL 70-110 Lab Interpretation (test cod e = 13024-4) Normal [facility] GLUCOSE (AUTOMATED)2024-04-28 01:47:46* Test Item Value Reference Range Interpretation Comme [facility] PO[facility] GLU (test code = 1349900303) 164 mg/dL 70-110 H Lab Interpretation (test cod e = 26119-0) Abnormal [facility] (TTE)2024-04-27 22:34:33* Test Item Value Reference Range Interpretation Comme nts Height (test code = 0309548300) 65 in Weight (test code = 6955830379) 192 lbs Systolic BP (test code = 1136201269) 112 mmHg Diastolic BP (test code = 3159060087) 70 mmHg Heart Rate (test code = 9838320038) 66 bpm LV GLS Endo Peak A2C () (test code = 2640601401) -25.00 % LV GLS Endo Peak A3C () (test code = 9104477152) -22.50 % LV GLS Endo Peak A4C () (test code = 8738331341) -23.20 % LV GLS Endo Peak Avg () (test code = 0679980135) -23.60 % BSA (test code = 8402205674) 1.94 m2 Ao root diam (test code = 2294416851) 3.20 cm Aortic root (test code = 0667781847) 3.2 cm Ao root annulus (test code = 5555052083) 3.2 cm LVOT diameter (test code = 0418814035) 1.80 cm LVOT area (test code = 3675288512) 2.60 cm2 LA size (test code = 6791659604) 4.8 cm LVIDD (test code = 9250769865) 4.20 cm Left Ventricular End Diastolic Volume by Teichholz Method (test code = 1331270) 80.3 mL IVS (test code = 5680099021) 1.31 cm Interventricular Septum Diastolic Thickness by 2D (test code = 9771044) 1.31 cm LVPWD (test code = 4458687987) 1.28 cm PW (test code = 5984239176) 1.28 cm 0.6-1.1 EF(Teich) (test code = 0494283047) 65.30 % LVIDS (test code = 6426615868) 2.70 cm Left Ventricular End Systolic Volume by Teichholz Method (test code = 9032602) 27.8 mL FS (test code = 5732334808) 36 % EF - 2D (test code = 66953280) 65.30 % LAV(MOD-sp4) (test code = 3664008265) 44.20 mL E wave decelartion time (test code = 8367264264) 0.19 s MV Peak E Tone (test code = 5988467680) 64.5 cm/s MV Peak A Tone (test code = 0165256731) 40.9 cm/s E/A ratio (test code = 8454672507) 1.58 ratio MV stenosis pressure 1/2 time (test code = 5926481160) 56.3 ms MV Prop V (test code = 3008663057) 51.10 cm/s MV E/e' septal (test code = 1674015203) 8.5 cm/s Tapse (test code = 9203071208) 1.43 cm LVOT stroke volume (test code = 1447231647) 44.70 cm3 LVOT peak tone (test code = 6099635416) 111.6 cm/s LVOT mn grad (test code = 4114143814) 2.4 mmHg AV LVOT peak gradient (test code = 2777896138) 5.0 mmHg LVOT peak VTI (test code = 8552904409) 17.5 cm LV V1 mean (test code = 3746668554) 72.10 cm/s Aortic valve mean velocity (test code = 9458288045) 106.4 cm/s Ao peak tone (test code = 7905682787) 151.1 cm/s Ao VTI (test code = 9374673855) 22.9 cm AV area by cont VTI (test code = 8370789222) 2.0 cm2 AV area peak tone (test code = 3639077027) 1.9 cm2 Ao max PG (test code = 6101823533) 9.10 mm[Hg] AV peak gradient (test code = 7124332580) 9.1 mmHg AV valve area (test code = 7593603795) 1.96 cm2 AV mean gradient (test code = 3930430327) 5.0 mmHg Radiology Study observation (narrative) (test code = 52973-9) ZAK (test code = ZAK) ?Left?Ventricle: Left [...] color flow Doppler, spectral Doppler and strain. [facility] GLUCOSE (AUTOMATED)2024-04-27 21:43:50* Test Item Value Reference Range Interpretation Comme nts POCT GLU (test code = 2924701892) 125 mg/dL 70-110 H Lab Interpretation (test cod e = 29829-6) Abnormal [facility] GLUCOSE (AUTOMATED)2024-04-27 16:24:49* Test Item Value Reference Range Interpretation Comme nts POCT GLU (test code = 8969588590) 198 mg/dL 70-110 H Lab Interpretation (test cod e = 97026-6) Abnormal [facility] GLUCOSE (AUTOMATED)2024-04-27 12:42:16* Test Item Value Reference Range Interpretation Comme nts POCT GLU (test code = 9752756391) 116 mg/dL 70-110 H Lab Interpretation (test cod e = 09052-1) Abnormal [facility] GLUCOSE (AUTOMATED)2024-04-27 06:52:13* Test Item Value Reference Range Interpretation Comme nts POCT GLU (test code = 0787481866) 89 mg/dL 70-110 Lab Interpretation (test cod e = 13533-5) Normal [facility] GLUCOSE (AUTOMATED)2024-04-27 01:50:16* Test Item Value Reference Range Interpretation Comme nts POCT GLU (test code = 4212053214) 133 mg/dL 70-110 H Lab Interpretation (test cod e = 54280-8) Abnormal [facility] GLUCOSE (AUTOMATED)2024-04-26 20:57:45* Test Item Value Reference Range Interpretation Comme nts POCT GLU (test code = 0395826355) 134 mg/dL 70-110 H Lab Interpretation (test cod e = 27411-9) Abnormal [facility] GLUCOSE (AUTOMATED)2024-04-26 16:23:43* Test Item Value Reference Range Interpretation Comme nts POCT GLU (test code = 6161633547) 151 mg/dL 70-110 H Lab Interpretation (test cod e = 12406-2) Abnormal [facility] GLUCOSE (AUTOMATED)2024-04-26 12:54:15* Test Item Value Reference Range Interpretation Comme nts POCT GLU (test code = 3541684231) 193 mg/dL 70-110 H Lab Interpretation (test cod e = 69306-9) Abnormal [facility] Center[facility]cosylated Hemoglobin (A1C)2024-04-26 05:04:09* Test Item Value Reference Range Interpretation Comme nts HGB A1C (test code = 4548-4) 9.2 % 4.0-5.7 H ZAK (test code = ZAK) Reference RangesNormal: <5.7%Prediabetes: 5.7 - 6.4%Diabetes: > 6.5% Lab Interpretation (test code = 69627-0) Abnormal [facility] CenterCritical [id number] 04:24:58Dustin Maharaj MD ? ? 04/25/2024 11:24 [...] separately billable procedures and treating other patients. [facility] [id number] 03:34:58* Test Item Value Reference Range Interpretation Comme nts TROPONIN I (test code = 0719486110) 0.007 ng/mL <=0.034 ZAK (test code = [...] of biotin. Lab Interpretation (test code = 99767-1) Normal [facility] CenterN-TERMINAL [id number]-ERL8265-04-26 03:32:58* Test Item Value Reference Range Interpretation Comme nts NT-proBNP (test code = 12512-8) 1360 pg/mL <=125 H ZAK (test code = ZAK) Positive: Heart Failure Likely Lab Interpretation (test code = 74721-4) Abnormal [facility] CenterMagnesium2024-08-26 03:18:34* Test Item Value Reference Range Interpretation Comme nts MAGNESIUM (test code = 1191206376) 1.6 mg/dL 1.7-2.4 L Lab Interpretation (test cod e = 02992-1) Abnormal [facility]. METABOLIC PANEL (39663)2024-04-26 03:18:14* Test Item Value Reference Range Interpretation Comme nts NA (test code = 3438890603) 134 mmol/L 135-145 L K (test code = 1393510824) 3.8 mmol/L 3.5-5.0 CL (test code = 5658479449) 98 mmol/L 98-108 CO2 TOTAL (test code = 0735382571) 28 mmol/L 23-31 AGAP (test code = 3899924316) 8 2-16 BUN (test code = 7657639134) 15 mg/dL 7-23 GLUCOSE (test code = 0481248473) 131 mg/dL 70-110 H CREATININE (test code = 2160-0) 0.67 mg/dL 0.50-1.04 TOTAL BILI (test code = 9996961410) 1.6 mg/dL 0.1-1.1 H CALCIUM (test code = 7634363834) 9.7 mg/dL 8.6-10.6 T PROTEIN (test code = 9783950716) 8.2 g/dL 6.3-8.2 ALBUMIN (test code = 3356078421) 4.5 g/dL 3.5-5.0 ALK PHOS (test code = 3487199664) 93 U/L 34-122 ALTv (test code = 1742-6) 21 U/L 5-35 AST(SGOT) (test code = 4261209694) 35 U/L 13-40 eGFR (test code = 17616-0) 95.9 mL/min/1.73m2 CKD-EPI eGFR (2020). Assuming creatinine has been stable day-to-day for at least three months, the eGFR indicates Category G1 (>= 90 mL/min/1.73 m2) Lab Interpretation (test code = 45568-1) Abnormal [facility]2024-[facility] 03:18:14* Test Item Value Reference Range Interpretation Comme nts LIPASE (test code = 5305261001) 100 U/L 0-220 Lab Interpretation (test cod e = 30351-3) Normal [facility] CenterCB WITH [id number] 02:36:12* Test Item Value Reference Range Interpretation [...] 34.3 g/dL 31.6-35.1 RDW-SD (test code = 12226-1) 42.9 fL 39.0-49.9 RDW-CV (test code = 788-0) 13.0 % 12.0-15.5 PLT (test code = 777-3) 196 166-358 MPV (test code = 86154-2) 10.0 fL 9.5-12.9 NRBC/100 WBC (test code = 0359157188) 0.0 0.0-10.0 NRBC x10^3 (test code = 7342945914) See_Comment [Automated messa ge] The system which generated this result transmitted reference range: 10*3/?L. The reference range was not used to interpret this result as normal/abnormal. GRAN MAT (NEUT) % (test code = 770-8) 78.4 % IMM GRAN % (test code = 6208744643) 0.50 % LYMPH % (test code = 736-9) 11.7 % MONO % (test code = 5905-5) 8.1 % EOS % (test code = 713-8) 0.8 % BASO % (test code = 706-2) 0.5 % GRAN MAT x10^3(ANC) (test code = 8831915901) 6.88 10*3/uL 1.88-7.09 IMM GRAN x10^3 (test code = 4972943246) 0.04 10*3/uL 0.00-0.06 LYMPH x10^3 (test code = 731-0) 1.03 10*3/uL 1.32-3.29 L MONO x10^3 (test code = 742-7) 0.71 10*3/uL 0.33-0.92 EOS x10^3 (test code = 711-2) 0.07 10*3/uL 0.03-0.39 BASO x10^3 (test code = 704-7) 0.04 10*3/uL 0.01-0.07 Lab Interpretation (test code = 91995-0) Abnormal [facility] GLUCOSE (AUTOMATED)2022-09-19 18:24:53* Test Item Value Reference Range Interpretation Comme nts POCT GLU (test code = 7461047023) 147 mg/dL 70-110 H Lab Interpretation (test cod e = 04471-3) Abnormal [facility] GLUCOSE (AUTOMATED)2022-09-19 16:02:54* Test Item Value Reference Range Interpretation Comme nts POCT GLU (test code = 1903585325) 86 mg/dL 70-110 Lab Interpretation (test cod e = 29689-3) Normal [facility] GLUCOSE (AUTOMATED)2022-09-19 01:50:19* Test Item Value Reference Range Interpretation Comme nts POCT GLU (test code = 8271813138) 127 mg/dL 70-110 H Lab Interpretation (test cod e = 27580-3) Abnormal [facility] GLUCOSE (AUTOMATED)2022-09-18 22:39:24* Test Item Value Reference Range Interpretation Comme nts POCT GLU (test code = 3730603815) 104 mg/dL 70-110 Lab Interpretation (test cod e = 64567-0) Normal [facility] GLUCOSE (AUTOMATED)2022-09-18 17:35:45* Test Item Value Reference Range Interpretation Comme nts POCT GLU (test code = 9576277744) 158 mg/dL 70-110 H Lab Interpretation (test cod e = 57754-0) Abnormal [facility] GLUCOSE (AUTOMATED)2022-09-18 14:16:24* Test Item Value Reference Range Interpretation Comme nts POCT GLU (test code = 2125251249) 148 mg/dL 70-110 H Lab Interpretation (test cod e = 54810-8) Abnormal [facility] GLUCOSE (AUTOMATED)2022-09-18 02:59:51* Test Item Value Reference Range Interpretation Comme nts POCT GLU (test code = 8623791779) 174 mg/dL 70-110 H Lab Interpretation (test cod e = 50652-1) Abnormal [facility]an[facility] (TTE)2022-09-17 23:30:34* Test Item Value Reference Range Interpretation Comme nts Height (test code = 5046898078) in Weight (test code = 6990188722) lbs Systolic BP (test code = 3638792611) mmHg Diastolic BP (test code = 8168659360) mmHg Heart Rate (test code = 5645785818) bpm BSA (test code = 7673315724) 1.98 m2 Ao root diam (test code = 5187633706) 3.10 cm Aortic root (test code = 6255107941) 3.1 cm Ao root annulus (test code = 5858983905) 3.1 cm LVOT diameter (test code = 3158713493) 1.82 cm LVOT area (test code = 9760514151) 2.60 cm2 LVIDD (test code = 8934691456) 4.00 cm Left Ventricular End Diastolic Volume by Teichholz Method (test code = 4032203) 69.3 mL IVS (test code = 7489790064) 1.19 cm Interventricular Septum Diastolic Thickness by 2D (test code = 3341171) 1.19 cm LVPWD (test code = 8063458127) 1.19 cm PW (test code = 5681533207) 1.19 cm 0.6-1.1 EF(Teich) (test code = 2903394330) 54.60 % LVIDS (test code = 1503651686) 2.90 cm Left Ventricular End Systolic Volume by Teichholz Method (test code = 2658654) 31.4 mL FS (test code = 1369646002) 28 % EF - 2D (test code = 36541811) 54.60 % LA size (test code = 6403944728) 4.5 cm LAV(MOD-sp4) (test code = 8191102308) 64.20 mL E wave decelartion time (test code = 7489127292) 0.14 s MV Peak E Tone (test code = 0036917177) 73.1 cm/s MV stenosis pressure 1/2 time (test code = 6773184196) 41.2 ms MV Peak A Tone (test code = 9239679705) 27.2 cm/s E/A ratio (test code = 7379308305) ratio MV Prop V (test code = 5284943744) 25.00 cm/s MV E/e' septal (test code = 1784334206) 8.1 cm/s Tapse (test code = 0720007038) 1.63 cm TR Peak Tone (test code = 9604948761) 199.0 cm/s Triscuspid Valve Regurgitation Peak Gradient (test code = 9082914230) mmHg LVOT stroke volume (test code = 2150315102) 54.40 cm3 LVOT peak tone (test code = 4627284062) 127.5 cm/s LVOT mn grad (test code = 9149790610) mmHg AV LVOT peak gradient (test code = 8324335137) mmHg LVOT peak VTI (test code = 6540724903) 21.0 cm LV V1 mean (test code = 1335685387) 69.50 cm/s Aortic valve mean velocity (test code = 0810936274) 119.0 cm/s Ao peak tone (test code = 8366584138) 161.8 cm/s Ao VTI (test code = 8448722313) 26.0 cm AV area by cont VTI (test code = 5688831961) 2.1 cm2 AV area peak tone (test code = 7293675408) 2.0 cm2 Ao max PG (test code = 9668861596) 10.50 mm[Hg] AV peak gradient (test code = 8219930501) mmHg AV valve area (test code = 4231272709) 2.09 cm2 AV mean gradient (test code = 9055384773) mmHg Radiology Study observation (narrative) (test code = 78828-2) ZAK (test code = ZAK) ?Left?Ventricle: Left [...] 2D, color flow Doppler and spectral Doppler. [facility] GLUCOSE (AUTOMATED)2022-09-17 22:53:28* Test Item Value Reference Range Interpretation Comme nts POCT GLU (test code = 9201684623) 121 mg/dL 70-110 H Lab Interpretation (test cod e = 97190-6) Abnormal [facility] GLUCOSE (AUTOMATED)2022-09-17 17:41:55* Test Item Value Reference Range Interpretation Comme nts POCT GLU (test code = 2944138358) 193 mg/dL 70-110 H Lab Interpretation (test cod e = 69070-9) Abnormal [facility] GLUCOSE (AUTOMATED)2022-09-17 13:47:30* Test Item Value Reference Range Interpretation Comme nts POCT GLU (test code = 8911283057) 115 mg/dL 70-110 H Lab Interpretation (test cod e = 36669-2) Abnormal [facility] CenterGlycosylated Hemoglobin (A1C)2022-09-17 06:05:45* Test Item Value Reference Range Interpretation Comme nts HGB A1C (test code = 4548-4) 8.9 % 4.0-5.7 H ZAK (test code = ZAK) Reference RangesNormal: <5.7%Prediabetes: 5.7 - 6.4%Diabetes: > 6.5% Lab Interpretation (test code = 03703-9) Abnormal [facility] CenterTHYROID STIMULATING [id number] 22:23:39 * Test Item Value Reference Range Interpretation Comme nts TSH (test code = 1324236721) See_Comment [Automated messa ge] The system which generated this result transmitted reference range: 0.45 - 4.70 mIU/L. The reference range was not used to interpret this result as normal/abnormal. Lab Interpretation (test code = 64909-0) Normal [facility] CenterTROPONIN [id number] 22:04:57* Test Item Value Reference Range Interpretation Comments TROPONIN I (test code = 9791621626) 0.007 ng/mL See_Comment [Automated message] The system [...] of biotin. Lab Interpretation (test code = 88224-2) Normal [facility]MAGNESIUM2023-01-16 21:53:35* Test Item Value Reference Range Interpretation Comme nts MAGNESIUM (test code = 6340878375) 1.7 mg/dL 1.7-2.4 Lab Interpretation (test cod e = 81719-5) Normal [facility] Center[facility]. METABOLIC PANEL (94175)2022-09-16 21:53:15* Test Item Value Reference Range Interpretation Comme nts NA (test code = 6987904753) 138 mmol/L 135-145 K (test code = 2701617633) 4.3 mmol/L 3.5-5.0 CL (test code = 9181697981) 101 mmol/L 98-108 CO2 TOTAL (test code = 1374632023) 25 mmol/L 23-31 AGAP (test code = 0889081374) 2-16 BUN (test code = 3079061408) 16 mg/dL 7-23 GLUCOSE (test code = 4325014349) 186 mg/dL 70-110 H CREATININE (test code = 1067454338) 0.73 mg/dL 0.50-1.04 TOTAL BILI (test code = 0918194275) 1.4 mg/dL 0.1-1.1 H CALCIUM (test code = 4120349002) 9.4 mg/dL 8.6-10.6 T PROTEIN (test code = 9750813037) 7.7 g/dL 6.3-8.2 ALBUMIN (test code = 7710024933) 4.7 g/dL 3.5-5.0 ALK PHOS (test code = 1319116777) 125 U/L 34-122 H ALTv (test code = 1742-6) 21 U/L 5-35 AST(SGOT) (test code = 1561017798) 22 U/L 13-40 eGFR (test code = 6399020137) mL/min/1.73m2 ZAK (test code = ZAK) Association [...] imaging tests). Lab Interpretation (test code = 40134-1) Abnormal [facility] WITH [id number] 21:34:56* Test Item Value Reference Range Interpretation Comme nts WBC (test code = 6690-2) See_Comment [[employer]] The system which generated this result transmitted reference range: 4.30 - 11.10 10*3/?L. The reference range was not used to interpret this result as normal/abnormal. RBC (test code = 789-8) See_Comment [[employer]] The system which generated this result transmitted [...] 33.3 g/dL 31.6-35.1 RDW-SD (test code = 52609-4) 42.7 fL 39.0-49.9 RDW-CV (test code = 788-0) 12.8 % 12.0-15.5 PLT (test code = 777-3) See_Comment [[employer]] The system which generated this result transmitted reference range: 166 - 358 10*3/?L. The reference range was not used to interpret this result as normal/abnormal. MPV (test code = 23223-2) 9.6 fL 9.5-12.9 NRBC/100 WBC (test code = 4250183203) See_Comment [Automated [employer]] The system which generated this result transmitted reference range: 0.0 - 10.0 /100 WBCs. The reference range was not used to interpret this result as normal/abnormal. NRBC x10^3 (test code = 5508419918) See_Comment [Automated messa ge] The system which generated this result transmitted reference range: 10*3/?L. The reference range was not used to interpret this result as normal/abnormal. GRAN MAT (NEUT) % (test code = 770-8) 65.8 % IMM GRAN % (test code = 7890478181) 0.30 % LYMPH % (test code = 736-9) 22.1 % MONO % (test code = 5905-5) 9.5 % EOS % (test code = 713-8) 1.4 % BASO % (test code = 706-2) 0.9 % GRAN MAT x10^3(ANC) (test code = 4285283411) 5.81 10*3/uL 1.88-7.09 IMM GRAN x10^3 (test code = 1321963888) 0.03 10*3/uL 0.00-0.06 LYMPH x10^3 (test code = 731-0) 1.95 10*3/uL 1.32-3.29 MONO x10^3 (test code = 742-7) 0.84 10*3/uL 0.33-0.92 EOS x10^3 (test code = 711-2) 0.12 10*3/uL 0.03-0.39 BASO x10^3 (test code = 704-7) 0.08 10*3/uL 0.01-0.07 H Lab Interpretation (test code = 97565-5) Abnormal [facility] Consult Notes Date/Time Note Provider Source 2024-04-27 [...] treatment: does not rate COMMUNICATION Primary Language: Macedonian Able to Verbalize needs: Yes Vision:good; no [...] min Zuri Hays PT [place] Lic No. [id number] [facility] Department of Physical Therapy Zuri Hays PT [facility] 2024-04-26 17:00:42 Associated Order(s): CONSULT CARDIOLOGY [facility] Cardiology Consult Note Patient: Sherrie Hernandez [...] Recurrent paroxysmal defibrillation with RVR episodes noted: [id number]=6 (age, female, hypertension, diabetes, history of CVA). [...] LAPAROSCOPIC ROBOTIC ASSISTED SALPINGO-OOPHORECTOMY 12/17/2012 [facility]: [facility]; Location: [facility] LAPAROSCOPIC ROBOTIC [...] her since passed. Has spiritual community at [facility] but doesn t go often due to not driving, never learned to drive. 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 Good work support. Pt values health wanting [...] 09/18/2022 140 mg/dL 11/23/2014 209 MG/DL (H) [id number] (mg/dL (calc)) Date Value 02/24/2015 141 (H) [...] 09/18/2022 140 mg/dL 11/23/2014 209 MG/DL (H) [id number] (mg/dL (calc)) Date Value 02/24/2015 141 (H) [...] Recurrent atrial fibrillation with RVR episodes noted: [id number] (age, female, hypertension, diabetes, history of CVA). [...] 09/18/2022 140 mg/dL 11/23/2014 209 MG/DL (H) [id number] (mg/dL (calc)) Date Value 02/24/2015 141 (H) [...] 09/18/2022 140 mg/dL 11/23/2014 209 MG/DL (H) [id number] (mg/dL (calc)) Date Value 02/24/2015 141 (H) [...] plan reviewed with the hospitalist team. Primary acid tester: Dr. Santos Thank you for allowing us to participate in the care of Sherrie Hernandez. If you have any questions or concerns please feel free to call our office at [phone]. I would be happy to be of further assistance for Sherrie Hernandez wellbeing. Otoniel Bates MD [employer], Division of Cardiology [facility] - Health History and Physical Notes Date/Time Note Provider Source 2024-04-26 01:51:45 [facility] ADMIT H&P Date of Service: 04/26/2024 CHIEF [...] ROBOTIC ASSISTED SALPINGO-OOPHORECTOMY 12/17/2012 Surgeon: Reji Barriga [facility]; Location: [facility] LAPAROSCOPIC ROBOTIC [...] her since passed. Has spiritual community at [employer] but doesn t go often due to not driving, never learned to drive. 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 Pt values health wanting [...] Surrogate decision maker: Adonis Wilkes (child) - [facility]
[2024-09-16] MEDS ORDERED: NA CHLORIDE 0.9% 1,000 ML ONE ×2 (17:20→19:07)
--- NOTE | 2024-09-16 17:34 | RAD REPORT ---
EXAM: Chest Single View HISTORY: COUGH COMPARISON: 09/06/2024 FINDINGS: LUNGS/PLEURA: The lungs are clear. No pleural effusions or pneumothorax. No pulmonary edema. MEDIASTINUM: The mediastinal silhouette is within normal limits. CARDIAC: Mild cardiomegaly UPPER ABDOMEN: No significant abnormality. BONES: No acute abnormality. LINES/TUBES/OTHER: Pacemaker present. Right IJ approach Port-A-Cath with tip overlying the SVC. IMPRESSION: No evidence of acute cardiopulmonary disease.
[2024-09-16 17:54] LABS: Absolute Basophils 0.1 K/uL (0-0.5); Absolute Lymphocytes (CBC) 1.5 K/uL (0.7-4.9); Absolute Monocytes 0.9 K/uL (0.1-1.3); Absolute Neutrophil 8.6 K/uL (1.8-8.0); Basophils % 0.7 % (0-1.3); Eosinophils % 0.3 % (0-4.4); Hematocrit 47.3 % (36.0-45.0); Hemoglobin 16.2 g/dL (12.0-15.0); Lymphocytes % 13.3 % (15.3-44.8); MCH 30.8 pg (27.0-35.0); MCHC 34.3 g/dL (32.0-36.0); MCV 89.7 fL (80-100); MPV 8.1 fL (7.6-11.3); Monocytes % 8.4 % (3.3-12.3); Neutrophils % 77.3 % (41.7-73.7); Nucleated Red Blood Cells % 0.1 % (0-0); Platelets 313 thou/uL (152-406); RBC Red Blood Cell Count 5.27 M/uL (3.86-4.86); Red Cell Distribution Width 13.9 % (12.1-15.2)
[2024-09-16 18:05] LABS: Specific Gravity > 1.030 (1.005-1.030); Transitional Epithelial <5 /HPF (None Seen); Urine Bacteria <20 /HPF (<20); Urine Bilirubin NEGATIVE (Negative); Urine Blood Negative (Negative); Urine Clarity Extremely Turbid (Clear); Urine Color Yellow (Yellow); Urine Culture Reflex Order NOT NEEDED; Urine Glucose 4+ (Over) (Negative); Urine Ketones NEGATIVE (Negative); Urine Microscopic Reflex YN ORDER UMIC; Urine Mucus Slight /HPF (None Seen); Urine Nitrite NEGATIVE (Negative); Urine Protein TRACE (Negative); Urine RBC <5 /HPF (None Seen); Urine Urobilinogen Normal (Normal); Urine pH 5.5 (5.0-7.0)
[2024-09-16 18:06] LABS: PT Prothrombin Time 11.6 SECONDS (9.4-12.5); Protime INR 1.11
[2024-09-16 18:18] LABS: SARS-CoV-2 Antigen CONTROL BLUE LINE VIS/BG OK; SARS-CoV-2 Antigen Rapid Res Negative (Negative)
[2024-09-16 18:19] LABS: Albumin 3.7 g/dL (3.4-5.0); Albumin/Globulin Ratio 0.8 (1.1-1.8); Anion Gap 13.8 mEq/L (5.0-15.0); Bilirubin Direct 0.2 mg/dL (0-0.2); Bilirubin Indirect, Calculated 1.2 mg/dL (0.2-0.8); Bilirubin Total 1.4 mg/dL (0.2-1.0); Globulin 4.9 g/dL (2.3-3.5); Potassium 3.8 mEq/L (3.5-5.1); Protein, Total 8.6 g/dL (6.4-8.2); Troponin High Sensitivity 9.4 pg/mL (<58.9)
--- NOTE | 2024-09-16 18:28 | RAD REPORT ---
EXAMINATION: CT ABDOMEN AND PELVIS WITHOUT CONTRAST CLINICAL INDICATION: Female, 69 years old.ABD PAIN TECHNIQUE: CT abdomen and pelvis was performed, without IV contrast, as per department protocol. Axia l, sagittal and coronal reconstructions were obtained. One or more of the following dose reduction techniques were used: Automated exposure control, adjustment of the mA and/or kV according to the pat ient size, and/or iterative reconstruction. Unless otherwise specified, incidental findings do not require dedicated imaging follow-up. [id number]. IV CONTRAST: Not administered. COMPARISON: 09/20/2019 FINDINGS: The lack of intravenous contrast limits the sensitivity of this exam for evaluation of solid visceral organs, vascular structures, and retroperitoneum. LOWER CHEST: No acute process identified.No significant pericardial effusion. Coronary artery calcifi cations present.Pacemaker leads. UPPER GI: No significant abnormality. LIVER: Hepatic steatosis, but otherwise unremarkable. GALLBLADDER/BILE DUCTS: Cholecystectomy. Mild extra-hepatic biliary ductal dilatation is likely relat ed to the post-cholecystectomy state. Consider correlating with LFT's.? PANCREAS: No mass, ductal dilation, or tabatha-pancreatic fluid. SPLEEN: Unremarkable. ADRENALS: No adrenal masses. KIDNEYS AND URETERS: No hydronephrosis.No suspicious renal mass. ABDOMINAL AORTA AND OTHER VESSELS: Moderate atherosclerotic changes without aortic aneurysm. PERITONEUM: No abnormal free fluid. No free air. LYMPH NODES: No pathologic lymphadenopathy. ABDOMINAL WALL: Small fat containing umbilical hernia. SMALL BOWEL/COLON: Wall thickening versus underdistention of the ascending and transverse colon.Appen kiran absent. URINARY BLADDER: Questionable bladder wall thickening. REPRODUCTIVE ORGANS: Uterus surgically absent. No adnexal abnormality. MUSCULOSKELETAL: No acute or suspicious osseous abnormality. ADDITIONAL FINDINGS: None. IMPRESSION: No definite acute findings within the abdomen or pelvis. Question wall thickening at the ascending an d transverse colon could reflect a mild colitis.
--- NOTE | 2024-09-16 18:48 | EDPHYS ---
Physician Documentation [facility] Name: Edith Hernandez Age: 69 yrs Sex: Female : 1955 Arrival Date: 09/16/2024 Time: 16:17 Bed 16 Private MD: ED Physician Brooks Nascimento HPI: 09/16 17:16 This 69 yrs old Female presents to ER via Wheelchair with complaints of aramis Shortness Of Breath, Anxiety. 17:16 The patient has shortness of breath at rest, with light activity. Onset: The aramis symptoms/episode began/occurred 2 day(s) ago. Duration: The symptoms are intermittent, with no pattern. The patient's shortness of breath is aggravated by walking. Associated signs and symptoms: Pertinent positives: dizziness. Severity of symptoms: At their worst the symptoms were mild in the emergency department the symptoms are unchanged. It is unknown whether or not the patient has had similar symptoms in the past. Historical: - Allergies: 16:32 No Known Allergies; ll1 - PMHx: 16:32 Atrial fibrillation; Cancer; Cerebrovascular accident; diabetes mellitus; Hypertensive ll1 disorder; Stroke Left side defecit; - PSHx: 16:32 section; hysterectomy; pacemaker; ll1 - Immunization history:: Adult Immunizations up to date. - Infectious Disease History:: Denies. - Social history:: Smoking status: Patient denies any tobacco usage or history of. ROS: 17:17 Constitutional: Negative for fever, chills, and weight loss, Eyes: Negative for injury, aramis pain, redness, and discharge, ENT: Negative for injury, pain, and discharge, Neck: Negative for injury, pain, and swelling, Cardiovascular: Negative for chest pain, palpitations, and edema, Respiratory: Negative for shortness of breath, cough, wheezing, and pleuritic chest pain, Back: Negative for injury and pain, : Negative for injury, bleeding, discharge, and swelling, MS/Extremity: Negative for injury and deformity, Skin: Negative for injury, rash, and discoloration, Psych: Negative for depression, anxiety, suicide ideation, homicidal ideation, and hallucinations, Allergy/Immunology: Negative for hives, rash, and allergies, Endocrine: Negative for neck swelling, polydipsia, polyuria, polyphagia, and marked weight changes, Hematologic/Lymphatic: Negative for swollen nodes, abnormal bleeding, and unusual bruising, 17:17 Abdomen/GI: Positive for diarrhea, 17:17 Neuro: Positive for near syncope, weakness, Exam: 17:17 Constitutional: This is a well developed, well nourished patient who is awake, alert, aramis and in no acute distress. Head/Face: Normocephalic, atraumatic. Eyes: Pupils equal round and reactive to light, extra-ocular motions intact. Lids and lashes normal. Conjunctiva and sclera are non-icteric and not injected. Cornea within normal limits. Periorbital areas with no swelling, redness, or edema. ENT: Nares patent. No nasal discharge, no septal abnormalities noted. Tympanic membranes are normal and external auditory canals are clear. Oropharynx with no redness, swelling, or masses, exudates, or evidence of obstruction, uvula midline. Mucous membranes moist. Neck: Trachea midline, no thyromegaly or masses palpated, and no cervical lymphadenopathy. Supple, full range of motion without nuchal rigidity, or vertebral point tenderness. No Meningismus. Chest/axilla: Normal chest wall appearance and motion. Nontender with no deformity. No lesions are appreciated. Cardiovascular: Regular rate and rhythm with a normal S1 and S2. No gallops, murmurs, or rubs. Normal PMI, no JVD. No pulse deficits. Respiratory: Lungs have equal breath sounds bilaterally, clear to auscultation and percussion. No rales, rhonchi or wheezes noted. No increased work of breathing, no retractions or nasal flaring. Abdomen/GI: Soft, non-tender, with normal bowel sounds. No distension or tympany. No guarding or rebound. No evidence of tenderness throughout. Back: No spinal tenderness. No costovertebral tenderness. Full range of motion. Female : Normal external genitalia. Skin: Warm, dry with normal turgor. Normal color with no rashes, no lesions, and no evidence of cellulitis. MS/ Extremity: Pulses equal, no cyanosis. Neurovascular intact. Full, normal range of motion., bilateral aka Neuro: Awake and alert, GCS 15, oriented to person, place, time, and situation. Cranial nerves II-XII grossly intact. Motor strength 5/5 in all extremities. Sensory grossly intact. Cerebellar exam normal. Normal gait. Psych: Awake, alert, with orientation to person, place and time. Behavior, mood, and affect are within normal limits. 17:21 Musculoskeletal/extremity: DVT Exam: No signs of deep vein thrombosis. no pain, no aramis swelling, no tenderness, negative Homans' sign noted on exam, no appreciated bluish discoloration, no erythema, no increased warmth, 18:46 ECG was reviewed by the Attending Physician. [facility] Vital Signs: 16:32 BP 100 / 52; Pulse 74; Resp 18; Temp 97.8; Pulse Ox 98% on R/A; Weight 79.38 kg; Height ll1 5 ft. 4 in. ; Pain 8/10; 17:57 BP 131 / 65; Pulse 72; Resp 20; Pulse Ox 93% on R/A; kj2 18:53 BP 133 / 61 Supine; Pulse 68; nh2 18:53 BP 135 / 66 Sitting; Pulse 70; nh2 18:56 BP 135 / 68 Standing; Pulse 80; kj2 19:10 BP 131 / 70; Pulse 65; Resp 18; Pulse Ox 96% on R/A; Pain 0/10; rg5 20:30 BP 131 / 67; Pulse 70; Resp 17; Pulse Ox 95% on R/A; Pain 0/10; rg5 16:32 Body Mass Index 30.04 (79.38 kg, 162.56 cm) ll1 16:32 Pain Scale: Adult ll1 19:10 Pain Scale: Adult rg5 20:30 Pain Scale: Adult rg5 MDM: 16:41 Medical Screening Exam initiated aramis 17:18 Differential diagnosis: Anxiety Reaction CHF exacerbation, Nonspecific abd pain, aramis gastritis, viral gastroenteritis, gastroenteritis, Myocardial Infarction pulmonary edema, Unstable Angina. Antibiotic administration: Not indicated. Differential Diagnosis altered mental status, sepsis, flu. Immunization status: Pneumococcal vaccine: within last 5 years. Influenza vaccine: within last 5 years. Data reviewed: vital signs, nurses notes, lab test result(s), EKG, radiologic studies, CT scan, plain films. Consideration of Admission/Observation Escalation of care including admission/observation considered. I considered the following discharge prescriptions or medication management in the emergency department Medications were administered in the Emergency Department. See MAR. Independent interpretation of the following test(s) in the Emergency Department EKG: See my EKG interpretation above. Test considered but Not performed: Ultrasound no abd usg. 09/16 16:40 Order name: Basic Metabolic Panel; Complete Time: 18:37 09/16 16:40 Order name: CBC with Diff; Complete Time: 18:13 09/16 16:40 Order name: LFT's; Complete Time: 18:37 09/16 16:40 Order name: Magnesium; Complete Time: 18:37 09/16 16:40 Order name: NT PRO-BNP; Complete Time: 18:37 09/16 16:40 Order name: PT-INR; Complete Time: 18:13 09/16 16:40 Order name: Troponin HS; Complete Time: 18:37 09/16 16:40 Order name: Lipase; Complete Time: 18:37 09/16 16:40 Order name: Flu; Complete Time: 18:37 09/16 16:40 Order name: SARS RAPID; Complete Time: 18:37 09/16 16:40 Order name: Urinalysis w/ reflexes; Complete Time: 18:13 09/16 18:14 Order name: Urine Culture 09/16 16:40 Order name: XRAY Chest (1 view); Complete Time: 18:13 09/16 17:15 Order name: CT Abd/Pelvis - Without Contrast; Complete Time: 18:37 09/16 16:40 Order name: Cardiac monitoring; Complete Time: 19:26 09/16 16:40 Order name: EKG - Nurse/Tech; Complete Time: 19:26 09/16 16:40 Order name: IV Saline Lock; Complete Time: 17:51 09/16 16:40 Order name: Labs collected and sent; Complete Time: 17:51 09/16 16:40 Order name: O2 Per Protocol; Complete Time: 17:51 09/16 16:40 Order name: O2 Sat Monitoring; Complete Time: 17:51 09/16 18:41 Order name: PO challenge; Complete Time: 19:23 09/16 18:41 Order name: Orthostatics; Complete Time: 18:53 [facility] EC:46 Rate is 76 beats/min. Rhythm is regular. QRS [place] is Normal. CA interval is normal. QRS aramis interval is normal. QT interval is normal. No Q waves. T waves are Normal. No ST changes noted. Clinical impression: Abnormal EKG without significant change and No evidence of ischemia. Interpreted by me. Reviewed by me. Administered Medications: 17:51 Drug: NS 0.9% IV 1000 ml IV at 1000 ml once; to be given as a bolus over 60 minutes kj2 Route: IV; Rate: 1000 ml; Site: left antecubital; 19:42 Follow up: IV Status: Completed infusion; IV Intake: 1000ml rg5 19:05 Drug: NS 0.9% IV 1000 ml IV at 1 bolus Per protocol; to be given as a bolus over 60 rg5 minutes Route: IV; Rate: 1 bolus; Site: left antecubital; 19:42 Follow up: IV Status: Completed infusion; IV Intake: 1000ml rg5 19:05 Drug: Rocephin IV 1 grams IV at per protocol once; Given slow IV push per pharmacy rg5 instructions Route: IV; Rate: per protocol; Site: left antecubital; 19:41 Follow up: IV Status: Completed infusion; IV Intake: 50ml rg5 19:10 Drug: metroNIDAZOLE IVPB 500 mg 100 ml IVPB at 200 ml/hr once over 30 mins Volume: 100 rg5 ml; Route: IVPB; Rate: 200 ml/hr; Infused Over: 30 mins; Site: left antecubital; 19:42 Follow up: IV Status: Completed infusion; IV Intake: 100ml rg5 19:10 Drug: Ciprofloxacin PO 500 mg PO once Route: PO; rg5 19:42 Follow up: Response: No adverse reaction rg5 Disposition Summary: 09/16/24 18:48 Discharge Ordered Notes: Location: Home aarmis Problem: new aramis Symptoms: have improved aramis Condition: Stable aramis Diagnosis - Diarrhea, unspecified aramis - Syncope Near aramis - Abdominal pain, unspecified aramis - UTI/ Urinary tract infection, site not specified aramis - Noninfective gastroenteritis and colitis, unspecified aramis Followup: aramis - With: Private Physician - When: 2 - 3 days - Reason: Recheck today's complaints, Continuance of care, Re-evaluation by your physician Followup: aramis - With: Kiko El MD - When: 2 - 3 days - Reason: Recheck today's complaints, Re-evaluation by your physician Discharge Instructions: - Discharge Summary Sheet aramis - Abdominal Pain, Adult aramis - Food Choices to Help Relieve Diarrhea, Adult aramis - Near-Syncope aramis - Urinary Tract Infection, Adult aramis - Urinary Tract Infection, Adult, Qrid-nr-Akhk aramis - Near-Syncope, Aqit-wz-Qlyk aramis - Colitis aramis Forms: - Medication Reconciliation Form aramis - Antibiotic Education aramis - Prescription Opioid Use aramis - Patient Portal Instructions aramis - Leadership Thank You Letter [facility] Prescriptions: - Cipro 250 mg Oral tablet - take 1 tablet ORAL route every 12 hours; 14 tablet; Refills: 0, Product aramis Selection Permitted - Flagyl 500 mg Oral tablet - take 1 tablet ORAL route every 8 hours for 7 days; 21 tablet; Refills: 0, aramis Product Selection Permitted Signatures: Dispatcher [employer] EDMS Brooks Nascimento MD MD cha Lewis, Lynsay, RN RN ll1 Jordan Zhang RN RN rg5 Alejandra Dennison RN RN kj2 Corrections: (The following items were deleted from the chart) 16:40 16:40 BASIC METABOLIC PANEL+C.LAB.BRZ ordered. EDMS EDMS 16:40 16:40 CBC+H.LAB.BRZ ordered. EDMS EDMS 16:40 16:40 HEPATIC FUNCTION+C.LAB.BRZ ordered. EDMS EDMS 16:40 16:40 MAGNESIUM+C.LAB.BRZ ordered. EDMS EDMS 16:40 16:40 PROBNP+C.LAB.BRZ ordered. EDMS EDMS 16:40 16:40 PROTIME (+INR)+COAG.LAB.BRZ ordered. EDMS EDMS 16:40 16:40 Troponin High Sensitivity+C.LAB.BRZ ordered. EDMS EDMS 16:40 16:40 LIPASE+C.LAB.BRZ ordered. EDMS EDMS 16:40 16:40 Influenza Screen (A \T\ B)+BA.LAB.BRZ ordered. EDMS EDMS 16:40 16:40 SARS-COV-2 Antigen Rapid+I.LAB.BRZ ordered. EDMS EDMS 16:40 16:40 Chest Single View+RAD.RAD.BRZ ordered. EDMS EDMS 16:41 16:40 Urinalysis+U.LAB.BRZ ordered. EDMS EDMS
--- NOTE | 2024-09-16 18:48 | ER ---
Nurse's Notes [facility] Name: Edith Hernandez Age: 69 yrs Sex: Female : 1955 Arrival Date: 09/16/2024 Time: 16:17 Bed 16 Private MD: Diagnosis: Diarrhea, unspecified;Syncope Near;Abdominal pain, unspecified;UTI/ Urinary tract infection, site not specified;Noninfective gastroenteritis and colitis, unspecified Presentation: 09/16 16:32 Chief complaint: Patient states: SOB, nausea, diarrhea, near syncope feeling since last ll1 night. Coronavirus screen: Client denies travel out of the [place] in the last 14 days. cough unrelated to allergies, diarrhea, difficulty breathing, fatigue, nausea, shortness of breath, sore throat, Client presents with at least one sign or symptom that may indicate coronavirus-19. Standard/surgical mask placed on the client. Ebola Screen: Patient denies travel to an Ebola-affected area in the 21 days before illness onset. Initial Sepsis Screen: Does the patient meet any 2 criteria? No. Patient's initial sepsis screen is negative. Does the patient have a suspected source of infection? No. Patient's initial sepsis screen is negative. Risk Assessment: Do you want to hurt yourself or someone else? Patient reports no desire to harm self or others. Onset of symptoms was September 15, 2024. 16:32 Method Of Arrival: Wheelchair ll1 16:32 Acuity: ZHANG 2 ll1 Triage Assessment: 17:00 General: Appears in no apparent distress. uncomfortable. Respiratory: Reports shortness kj2 of breath at rest Onset: The symptoms/episode began/occurred yesterday, the patient has moderate shortness of breath. Historical: - Allergies: 16:32 No Known Allergies; ll1 - PMHx: 16:32 Atrial fibrillation; Cancer; Cerebrovascular accident; diabetes mellitus; Hypertensive ll1 disorder; Stroke Left side defecit; - PSHx: 16:32 section; hysterectomy; pacemaker; ll1 - Immunization history:: Adult Immunizations up to date. - Infectious Disease History:: Denies. - Social history:: Smoking status: Patient denies any tobacco usage or history of. Screenin:00 [facility] ED Fall Risk Assessment (Adult) History of falling in the last 3 months, kj2 including since admission No falls in past 3 months (0 pts) Confusion or Disorientation No (0 pts) Intoxicated or Sedated No (0 pts) Impaired Gait No (0 pts) Mobility Assist Device Used No (0 pt) Altered Elimination No (0 pt) Score/Fall Risk Level 0 - 2 = Low Risk Maintained a safe environment, Hourly rounding (assess needs \T\ fall precautionary measures) done. Abuse screen: Denies threats or abuse. Denies injuries from another. Nutritional screening: No deficits noted. Tuberculosis screening: No symptoms or risk factors identified. Assessment: 17:00 General: Appears in no apparent distress. uncomfortable, Behavior is calm, cooperative. kj2 Pain: Denies pain. Cardiovascular: Patient's skin is warm and dry. Respiratory: Airway is patent Respiratory effort is even, unlabored. GI: No signs and/or symptoms were reported involving the gastrointestinal system. : No signs and/or symptoms were reported regarding the genitourinary system. 17:57 Reassessment: Patient appears in no apparent distress at this time. Patient and/or kj2 family updated on plan of care and expected duration. Pain level reassessed. Patient is alert, oriented x 3, equal unlabored respirations, skin warm/dry/pink. 19:03 Reassessment: Patient appears in no apparent distress at this time. Patient and/or kj2 family updated on plan of care and expected duration. Pain level reassessed. Patient is alert, oriented x 3, equal unlabored respirations, skin warm/dry/pink. 20:30 Reassessment: Patient and/or family updated on plan of care and expected duration. Pain rg5 level reassessed. Patient is alert, oriented x 3, equal unlabored respirations, skin warm/dry/pink. 20:30 Cardiovascular: Denies chest pain, Rhythm is regular. Respiratory: Airway is patent rg5 Trachea midline Respiratory effort is even, unlabored, Respiratory pattern is regular, symmetrical, Breath sounds are clear. Vital Signs: 16:32 BP 100 / 52; Pulse 74; Resp 18; Temp 97.8; Pulse Ox 98% on R/A; Weight 79.38 kg; Height ll1 5 ft. 4 in. ; Pain 8/10; 17:57 BP 131 / 65; Pulse 72; Resp 20; Pulse Ox 93% on R/A; kj2 18:53 BP 133 / 61 Supine; Pulse 68; nh2 18:53 BP 135 / 66 Sitting; Pulse 70; nh2 18:56 BP 135 / 68 Standing; Pulse 80; kj2 19:10 BP 131 / 70; Pulse 65; Resp 18; Pulse Ox 96% on R/A; Pain 0/10; rg5 20:30 BP 131 / 67; Pulse 70; Resp 17; Pulse Ox 95% on R/A; Pain 0/10; rg5 16:32 Body Mass Index 30.04 (79.38 kg, 162.56 cm) ll1 16:32 Pain Scale: Adult ll1 19:10 Pain Scale: Adult rg5 20:30 Pain Scale: Adult rg5 ED Course: 16:21 Patient arrived in ED. mr 16:34 Triage completed. ll1 16:38 Brooks Nascimento MD is Attending Physician. aramis 16:43 Alejandra Dennison RN is Primary Nurse. kj2 17:00 Patient has correct armband on for positive identification. Bed in low position. Call kj2 light in reach. Provided Education on: call light. 17:00 Arm band placed on Patient placed in an exam room, on a stretcher. kj2 17:16 XRAY Chest (1 view) In Process Unspecified. EDMS 17:39 No provider procedures requiring assistance completed. kj2 18:00 Inserted saline lock: 20 gauge in left antecubital area, using aseptic technique. Blood nh2 collected. Flushed with 10 mL NS. 18:09 CT Abd/Pelvis - Without Contrast In Process Unspecified. EDMS 18:48 Kiko El MD is Referral Physician. [facility] 19:03 Report given to MUKESH Ortega. kj2 20:30 IV discontinued, bleeding controlled, No redness/swelling at site. Pressure dressing rg5 applied. Administered Medications: 17:51 Drug: NS 0.9% IV 1000 ml IV at 1000 ml once; to be given as a bolus over 60 minutes kj2 Route: IV; Rate: 1000 ml; Site: left antecubital; 19:42 Follow up: IV Status: Completed infusion; IV Intake: 1000ml rg5 19:05 Drug: NS 0.9% IV 1000 ml IV at 1 bolus Per protocol; to be given as a bolus over 60 rg5 minutes Route: IV; Rate: 1 bolus; Site: left antecubital; 19:42 Follow up: IV Status: Completed infusion; IV Intake: 1000ml rg5 19:05 Drug: Rocephin IV 1 grams IV at per protocol once; Given slow IV push per pharmacy rg5 instructions Route: IV; Rate: per protocol; Site: left antecubital; 19:41 Follow up: IV Status: Completed infusion; IV Intake: 50ml rg5 19:10 Drug: metroNIDAZOLE IVPB 500 mg 100 ml IVPB at 200 ml/hr once over 30 mins Volume: 100 rg5 ml; Route: IVPB; Rate: 200 ml/hr; Infused Over: 30 mins; Site: left antecubital; 19:42 Follow up: IV Status: Completed infusion; IV Intake: 100ml rg5 19:10 Drug: Ciprofloxacin PO 500 mg PO once Route: PO; rg5 19:42 Follow up: Response: No adverse reaction rg5 Medication: 17:38 VIS not applicable for this client. kj2 Intake: 19:41 IV: 50ml; Total: 50ml. rg5 19:42 IV: 1000ml; Total: 1050ml. rg5 19:42 IV: 100ml; Total: 1150ml. rg5 19:42 IV: 1000ml; Total: 2150ml. rg5 Outcome: 18:48 Discharge ordered by . aramis 20:30 Discharged to home ambulatory, rg5 20:30 Condition: stable 20:30 Discharge instructions given to patient, Instructed on discharge instructions, follow up and referral plans. Demonstrated understanding of instructions, follow-up care, 20:47 Patient left the ED. rg5 Addendum: 09/19/2024 07:09 Addendum: Culture Results: Positive urine culture. No further action required. Bacteria e b sensitive to prescribed antibiotic. Signatures: Dispatcher [employer] EDBrooks Crenshaw MD MD cha Rivera, Mary, Reg Reg mr KuoMeli Lynsay, RN RN ll1 Jordan Zhang RN RN rg5 Alejandra Dennison RN RN kj2 Jeremiah Lutz, Yao nh2
[2024-09-16] MEDS ORDERED: CEFTRIAXONE 1000 MG/VIAL ONE (19:06)
[2024-09-16] MEDS ORDERED: METRONIDAZOLE 500mg IVPB 500 MG/100 ML BAG IV ONE (19:07)
[2024-09-16] MEDS ORDERED: CIPROFLOXACIN HCL 500 MG TAB ONE (19:07)
[2024-09-17 03:16] VITALS: BP 135/68; TEMP 97.8; O2SAT 93
== END 2024-09-16 20:47 | disposition home or self-care (01) ==
LOC: ER 16:17
DX: N39.0 Urinary tract infection, site not specified (principal); K52.9 Noninfective gastroenteritis and colitis, unspecified; R10.9 Unspecified abdominal pain; Z11.52 Encounter for screening for COVID-19; Z95.0 Presence of cardiac pacemaker
CPT/HCPCS: 96365; 96361; 87088; 85025; 81001; 87086; 80048; 36415; 83735; 85610; 80076; 87077; 87186; 84484; 83690; 83880; 87804 ×2; 74176; 71045; 99284; 87811; J7030 ×2; J0696

== ENCOUNTER 2024-10-31 19:07 | Inpatient (IN) | payer OTHER ==
--- OUTSIDE RECORDS SUMMARY | 2024-10-31 19:17 | XMS REPORT | Continuity of Care Document ---
Author Name Unknown Address [address] [facility] [address] [place] [address] [facility] thconnect Address [address] [facility]. [address] [place] [address] Care Team Providers Care Communications Project Lead Name Role Phone Sushila Babb Primary Care Physician [phone] Bret Lamb Attending Clinician Unavailable ALAN MCCLAIN Attending Clinician Unavail able ALAN MCCLAIN Attending Clinician Unavail able Sushila Babb Attending Clinician [phone] Valencia Brewer LVN Attending Clinician UnavailHan GUALLPAReji Attending Clinician Anna vailable Doctor Unassigned, [place] Attending Clinician U Alan Smalls MD Attending Clinician [phone] SHAHRAM COLEY Attending Clinician Unavailable SHAHRAM COLEY Attending Clinician Unavailable Shahram Marshall Attending Clinician [phone] LILI GARCIAS Attending Clinician Unavailable Lili Garcias MD Attending Clinician [phone] LOTTIE TRUONG Attending Clinician UnavailLOTTIE Wayne Attending Clinician UnavailNiya Morales RN Attending Clinician Unavailable LUCY LYNN Attending Clinician Unavailable Daniele Maharaj MD Attending Clinician Lucy Lynn DO Attending Clinician [phone] Shira Salgado MD Attending Clinician [phone] 1, [facility] Attending Clinician Unavail Lottie Chong MD Attending Clinician [phone] Get Whittington MD Attending Clinician [phone] ALEXEY CLARKE Attending Clinician Unavailable ALEXEY CLARKE Attending Clinician Unavailable Doctor Unassigned, [place] Attending Clinician U aby Bates MD, Bruce K.HDrew Attending Clinician + [phone] RICARDO LUJAN Attending Clinician Unavailable RICARDO LUJAN Attending Clinician Unavailable DELMI MENDOZA Attending Clinician Unav DELMI Matthews Attending Clinician Unav ailBRUCE Adams K.HDrew Attending Clinician UnavailEDUARDO Ghotra Attending Clinician Unavailable , [facility] Attending Clinician Unavail Lottie Chong MD Attending Clinician + [phone] KIRILL ALVARADO Attending Clinician Unavailabl ORLANDO Espino Attending Clinician Unavailable ORLANDO EDWARD Attending Clinician Unavailable Eduardo Esteban MD Attending Clinician [phone] Kinsey Banegas MD Attending Clinician [phone] Pob, [facility] Attending Clinician Unavailabl altaf George [facility], Brian Aceves Attending Clinici an Cruz Huddleston MD Attending Clinician [phone] Natalia MAYORGA, Niranjan Denis Attending Clinician Unavail able Jacki Samuels DO Attending Clinician [phone] Russell Paul MD Attending Clinician [phone] Lucy Lynn DO Attending Clinician [phone] RADIOLOGY Attending Clinician Unavailable ALAN HARDING Attending Clinician Unavailabl e 2, [facility] Attending Clinician Unavailable CHATO CHAUHAN Attending Clinician Chato Haley MD Attending Clinician + [phone] IGNACIA CRUZ Attending Clinician Unavailable Only, Adc Test Attending Clinician Unavailable Alan Harding PA-C Attending Clinician [phone] [facility] [phone] Niya Smith RN Attending Clinician Unavailable RUSSELL PAUL Attending Clinician Unavailable ALBINA YI Attending Clinician Unavailable Alina CUNNINGHAM, Albina Attending Clinician [phone] Kellie Bafrield MD Attending Clinician + [phone] Alan Mcclain MD Attending Clinician [phone] SHAHRAM COLEY Admitting Clinician Unavailable ALAN MCCLAIN Admitting Clinician Unavail able SHIRA SALGADO Admitting Clinician Unavailable Shira Salgado MD Admitting Clinician [phone] ALEXEY CLARKE Admitting Clinician Unavailable DELMI MENDOZA Admitting Clinician Unav sivaable EDUARDO ESTEBAN Admitting Clinician Unavailable KIRILL ALVARADO Admitting Clinician UnavailEduardo Jonas MD Admitting Clinician [phone] RUSSELL APUL Admitting Clinician Unavailable Russell Paul MD Admitting Clinician [phone] CHATO CHAUHAN Admitting Clinician IGNACIA Robison Admitting Clinician Unavailable Payers Payer Name Policy Type Policy Number Effective Date Expirati on Date Source [facility] DUAL COMP HMO D SNP [id number] 2021 00:00:00 2023 00:00:00 [place] [id number] 2018 00:00:00 2022 00:00:00 MEDICAID DUAL COMPLETE HMO DSNP [facility] [id number] 2022 00:00:00 2022 00:00:00 Problems Condition Name Condition Details Condition Category Status Onset Date Resolution Date Last Treatment Date Treating Clinician Comments Source Nonsustain ed ventricula r tachycardi a Nonsustain ed ventricula r tachycardi a Disease Active 04-27 00:00: 00 [facility] Flu-like symptoms Flu-like symptoms Disease Active 8-25 00:00: 00 [facility] S/P placement of cardiac pacemaker S/P placement of cardiac pacemaker Disease Active 3-09 00:00: 00 [facility] History of CVA (cerebrova scular accident) without residual deficits History of CVA (cerebrova scular accident) without residual deficits Disease Active 1-18 00:00: 00 [facility] Nonobstruc tive atheroscle rosis of coronary artery Nonobstruc tive atheroscle rosis of coronary artery Disease Active 118 00:00: 00 [facility] THEODORE (obstructi ve sleep apnea) THEODORE (obstructi ve sleep apnea) Disease Active 09-18 00:00: 00 [facility] Atrial fibrillati on with RVR Atrial fibrillati on with RVR Disease Active 1-16 00:00: 00 [facility] A-fib A-fib Disease Active 224 00:00: 00 [facility] 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 Disease Active 2020-09 00:00: 00 [facility] Paroxysmal atrial fibrillati on with RVR Paroxysmal atrial fibrillati on with RVR Disease Active 2020-09 00:00: 00 [facility] Obesity (BMI 30-39.9) Obesity (BMI 30-39.9) Disease Active 2020-09 00:00: 00 [facility] Elevated brain natriureti c peptide (BNP) level Elevated brain natriureti c peptide (BNP) level Disease Active 2020-09 00:00: 00 [facility] Elevated brain natriureti c peptide (BNP) level Elevated brain natriureti c peptide (BNP) level Disease Active 2020-09 00:00: 00 [facility] Pancreatit is, unspecifie d pancreatit is type Pancreatit is, unspecifie d pancreatit is type Disease Active 2020-09 00:00: 00 [facility] Decreased coordinati on Decreased coordinati on Disease Active 2015-09 00:00: 00 [facility] Decreased pinch strength Decreased pinch strength Disease Active 2015-09 00:00: 00 [facility] Decreased client advisor strength of left hand Decreased client advisor strength of left hand Disease Active 2015-09 00:00: 00 [facility] Decreased activities of daily living (ADL) Decreased activities of daily living (ADL) Disease Active 2015-09 00:00: 00 [facility] Cerebrovas cular accident (CVA) due to embolism of right carotid artery Cerebrovas cular accident (CVA) due to embolism of right carotid artery Disease Active 2015-09 00:00: 00 [facility] Gait abnormalit y Gait abnormalit y Disease Active 2015-09 00:00: 00 [facility] Weakness of both lower extremitie s Weakness of both lower extremitie s Disease Active 2015-09 00:00: 00 [facility] Cerebrovas cular accident (CVA) due to embolism of right carotid artery Cerebrovas cular accident (CVA) due to embolism of right carotid artery Disease Active 2015-09 00:00: 00 [facility] Weakness of both lower extremitie s Weakness of both lower extremitie s Disease Active 2015-09 00:00: 00 [facility] Left hand weakness Left hand weakness Disease Active 04-24 00:00: 00 [facility] S/P ablation of atrial fibrillati on S/P ablation of atrial fibrillati on Disease Active 04-23 00:00: 00 [facility] Pre-syncop e Pre-syncop e Disease Active 03-06 00:00: 00 [facility] History of endometria l cancer History of endometria l cancer Disease Active 10-01 00:00: 00 [facility] Back pain Back pain Disease Active 03-26 00:00: 00 [facility] Chest pain Chest pain Disease Active 03-26 00:00: 00 [facility] Atrial fibrillati on Atrial fibrillati on Disease Active 03-09 00:00: 00 [facility] DONNELLY (dyspnea on exertion) DONNELLY (dyspnea on exertion) Disease Active 02-09 00:00: 00 [facility] Malignant neoplasm of corpus uteri, except isthmus Malignant neoplasm of corpus uteri, except isthmus Disease Active 12-24 00:00: 00 [facility] Simple obesity Simple obesity Disease Active 11-25 00:00: 00 [facility] Type 2 diabetes mellitus without complicati ons Type 2 diabetes mellitus without complicati ons Disease Active 12-21 00:00: 00 Overview: Formattin g of this note might be different from the original. ICD10 Diagnosis Term Project Facilitator Utility [facility] Type 2 diabetes mellitus with other specified complicati on Type 2 diabetes mellitus with other specified complicati on Disease Active 12-21 00:00: 00 Overview: Formattin g of this note might be different from the original. ICD10 Diagnosis Term Project Facilitator Utility [facility] HLD (hyperlipi demia) HLD (hyperlipi demia) Disease Active 2005-09 00:00: 00 Overview: Formattin g of this note might be different from the original. ICD10 Diagnosis Term Project Facilitator Utility [facility] Dyslipidem ia Dyslipidem ia Disease Active 2005-09 00:00: 00 Overview: Formattin g of this note might be different from the original. ICD10 Diagnosis Term Project Facilitator Utility [facility] Essential hypertensi on, benign Essential hypertensi on, benign Disease Active 05-21 00:00: 00 [facility] Dysthymic disorder Dysthymic disorder Disease Active 05-21 00:00: 00 [facility] Essential hypertensi on Essential hypertensi on Disease Active 05-21 00:00: 00 [facility] Varicose veins of lower extremitie s Varicose veins of lower extremitie s Disease Active 05-08 00:00: 00 [facility] [id number] Type 2 diabetes mellitus with hyperglyce ashley Problem [facility] mor [id number] long term (current) use of insulin Problem [facility] omr Abdominal pain, left lower quadrant Abdominal pain, left lower quadrant Disease Resolve d 2014-09 2-22 00:00: 00 2016-07-10 00:00:00 2016-07-10 12:28:50 [facility] Abdominal pain Abdominal pain Disease Resolve d 0 5- 00:00: 00 2016-07-10 00:00:00 2016-07-10 12:28:47 [facility] Fever and chills Fever and chills Disease Resolve d 0 5-27 00:00: 00 2016-07-10 00:00:00 2016-07-10 12:28:57 [facility] Atypical chest pain Atypical chest pain Disease Resolve d 0 3-25 00:00: 00 2016-07-10 00:00:00 2016-07-10 12:28:31 [facility] Acute appendicit is Acute appendicit is Disease Resolve d 0 1-13 00:00: 00 2016-07-10 00:00:00 2016-07-10 12:28:42 [facility] Diabetes mellitus Diabetes mellitus Disease Resolve d 0 7-09 00:00: 00 2013-05-13 00:00:00 [facility] Pneumonia Pneumonia Disease Resolve d 6-11 00:00: 00 2013-05-13 00:00:00 2013-05-13 13:45:16 [facility] Uterine polyp Uterine polyp Disease Resolve d 4-03 00:00: 00 2013-05-13 00:00:00 2013-05-13 13:45:26 [facility] Postmenopa usal bleeding Postmenopa usal bleeding Disease Resolve d 3-27 00:00: 00 2013-05-13 00:00:00 2013-05-13 13:45:29 [facility] Elevated blood pressure reading without diagnosis of hypertensi on Elevated blood pressure reading without diagnosis of hypertensi on Disease Resolve d 9-07 00:00: 00 2012-12-23 00:00:00 2012-12-23 09:27:09 [facility] Allergies, Adverse Reactions, Alerts Allergy Name Allergy Type Status Severity Reaction(s) Onset Date Inactive Date Treating Clinician Comments Source Latex Propensi ty to adverse reaction s Active Rash 04-21 00:00: 00 [facility] LATEX DRUG INGREDI Active Med Rash 04-21 00:00: 00 [facility] METFORMI N DRUG INGREDI Active Unknown-Cmnt 2013-09 00:00: 00 [facility] Metformi n Propensi ty to adverse reaction s Active Unknown - See comments 2013-09 00:00: 00 Chills, hypoglyce ashley, nausea/vo miting [facility] PINDOLOL DRUG INGREDI Active Hallucinates 04-21 00:00: 00 [facility] Pindolol Propensi ty to adverse reaction s Active Hallucinatio ns 04-21 00:00: 00 [facility] PACLITAX EL DRUG INGREDI Active High Rash 03-09 00:00: 00 [facility] Paclitax el Propensi ty to adverse reaction s to drug Active Other - See comments 03-09 00:00: 00 atrial fibrillat ion [facility] Adhesive Tape-Jaymie icones Propensi ty to adverse reaction s Active Rash 02-19 00:00: 00 Including op site adhesives -- significa nt rash [facility] ADHESIVE TAPE-JAYMIE ICONES DRUG Active Rash 02-19 00:00: 00 [facility] Family History Family Member Diagnosis Comments Start Date Stop Date Sourc e Natural brother Other - see comments [facility] Natural father Cancer [facility] Natural [facility] Natural mother Stroke Un[facility] Paternal aunt Cancer Un[facility] Natural [facility] Natural sister [facility] Social History Social Habit Start Date Stop Date Quantity Comments Source History SDOH Social Connections Get Together [facility] History SDOH Social Connections Mandaeism [facility] History SDOH Social Connections Membership [facility] History SDND Social Connections Meetings [facility] Sexual orientation U niversity [facility] Sex [facility]igned [facility] History of Tobacco Use [facility] History of Social function 2024-04-23 00:00:00 2024-04-23 00:00:00 [facility] Exposure to SARS-CoV-2 (event) 2022-12-16 00:00:00 2022-12-26 13:31:00 Not sure [facility] Tobacco use and exposure 2022-11-07 00:00:00 2022-11-07 00:00:00 Smokeless tobacco non-user [facility] Alcoholic beverage intake 2022-11-07 00:00:00 2022-11-07 00:00:00 0 /d [facility] Alcohol intake 2022-11-07 00:00:00 2022-11-07 00:00:00 0 /d [facility] History SDOH Social Connections Phone 2022-09-17 00:00:00 2022-09-17 00:00:00 5 [facility] History SDOH Social Connections Living 2022-09-17 00:00:00 2022-09-17 00:00:00 4 [facility] History SDOH Physical Activity DPW 2022-09-17 00:00:00 2022-09-17 00:00:00 3 [facility] History SDOH Physical Activity MPS 2022-09-17 00:00:00 2022-09-17 00:00:00 3 [facility] History SDOH Financial 2022-09-17 00:00:00 2022-09-17 00:00:00 4 [facility] History SDOH Food Worry 2022-09-17 00:00:00 2022-09-17 00:00:00 1 [facility] History SDOH Food Scarcity 2022-09-17 00:00:00 2022-09-17 00:00:00 1 [facility] History SDOH Transport Med 2022-09-17 00:00:00 2022-09-17 00:00:00 2 [facility] History SDOH Transport Non-Med 2022-09-17 00:00:00 2022-09-17 00:00:00 2 [facility] History SDOH Alcohol Frequency 2022-09-17 00:00:00 2022-09-17 00:00:00 1 [facility] History SDOH Alcohol Std Drinks 2022-09-17 00:00:00 2022-09-17 00:00:00 0 [facility] History SDOH Alcohol Binge 2022-09-17 00:00:00 2022-09-17 00:00:00 1 [facility] Alcohol Comment 2008-01-17 00:00:00 2008-01-17 00:00:00 OCCASIONALLY [facility] Smoking Status Start Date Stop Date Source Never smoked tobacco [facility] Medications Ordered Medication Name Filled Medication Name Start Date Stop Date Current Medication? Ordering Clinician Indication Dosage Frequency Signature (SIG) Comments Components Source cyclobenzap rine 10 mg tablet 2023-09 00:00: 00 Yes [id number] 10mg Take 1 tablet by mouth 3 (three) times daily as needed for Muscle Spasms. Also for pain, spine. [facility] insulin lispro (human) (HumaLOG U-100) injection 6 Units 2023-09 02:00: 00 07-09 02:09 :00 No 6U 6 Units, Subcutaneo us, ONCE, 1 dose, On Fri07/08/24 at 2000, Routine [facility] acetaminoph en (TYLENOL) tablet 1,000 mg 2023-09 00:00: 00 07-09 00:25 :00 No 1000mg 1,000 mg, Oral, ONCE NOW, 1 dose, On Fri07/08/24 at 1800, Routine [facility] metoclopram kassi HCl (REGLAN) injection 5 mg 2023-09 23:15: 00 07-09 00:26 :00 No 5mg 5 mg, Slow IV Push, ONCE, 1 dose, On Fri07/08/24 at 1715, SANG [facility] ondansetron 4 mg disintegrat ing tablet 2023-09 00:00: 00 07-08 00:00 :00 No [id number] 4mg Take 1 tablet by mouth every 8 (eight) hours as needed for Nausea and Vomiting (N/V). [facility] FreeStyle Margot 3 Plus Sensor - FreeStyle Margot 3 Plus Sensor - 05-26 00:00: 00 No FreeStyle Margot 3 Plus Sensor - nitroglycer in 0.4 mg sublingual tablet 05-24 07:46: [address] 1 tablet under the tongue every 5 (five) minutes as needed for Chest pain. [facility] methocarbam oL 750 mg tablet 05-24 07:46: 35 Yes 750mg Take 1 tablet by mouth 4 (four) times daily. [facility] meloxicam 15 mg tablet 05-24 07:46: 35 Yes 15mg Take 1 tablet by mouth once daily as needed. [facility] insulin degludec (TRESIBA FLEXTOUCH U-100) 100 unit/mL (3 mL) InPn 05-24 07:46: 35 Yes INJECT UP TO A MAX OF 80 UNITS UNDER THE SKIN EVERY DAY. for 36 [facility] FARXIGA 10 mg tablet 05-24 07:46: 35 Yes 10mg Take 1 tablet by mouth in the morning. [facility] amLODIPine 10 mg tablet 05-24 07:46: 35 Yes 10mg Take 1 tablet by mouth in the morning. [facility] traMADoL 50 mg tablet 05-24 07:46: 35 08-01 00:00 :00 No 100mg Take 2 tablets by mouth every 6 (six) hours as needed. [facility] Mounjaro 5 MG/0.5ML Mounjaro 5 MG/0.5ML 05-24 00:00: 00 No Mounjaro 5 MG/0.5ML MOUNJARO 5 mg/0.5 mL subcutaneou s injection 05-18 00:00: 00 Yes 5mg inject 5 mg under the skin weekly. [facility] MOUNJARO 2.5 mg/0.5 mL subcutaneou s injection 05-17 00:00: 00 Yes INJECT 2.5 MG UNDER THE SKIN EVERY WEEK [facility] traMADoL (ULTRAM) tablet 50 mg 04-28 14:14: 46 Yes 50mg 50 mg, Oral, Q6HPRN, Starting on Fri04/28/24 at 0914, Until Discontinu ed, Routine, Pain (scale 7-10) [facility] amiodarone 200 mg tablet 04-28 00:00: 00 05-29 04:59 :00 No [id number] 200mg Take 1 tablet by mouth in the morning for 30 days. [facility] remdesivir 100 mg in NaCl 0.9% (NS) 100 mL MINI-BAG 04-27 21:00: 00 05-01 20:59 :00 No 100mg 100 mg, IV Infusion, DAILY AT 1600, 4 doses, First dose on Fri04/27/24 at 1600, Last dose on Fri04/30/24 at 1600, Administer over 60 Minutes, 100 mL, Is the patient mechanical ly ventilated ? NO [facility] KCL (KLOR-CON M20) tablet 40 mEq 04-27 13:00: 00 04-28 12:59 :00 No 40meq 40 mEq, Oral, BID, 3 doses, First dose on Fri04/27/24 at 0800, Last dose on Fri04/28/24 at 0800, Routine [facility] atorvastati n (LIPITOR) tablet 40 mg 04-27 02:00: 00 Yes 40mg 40 mg, Oral, QHS, First dose on Fri04/26/24 at 2100, Until Discontinu ed, Routine [facility] amiodarone (PACERONE) tablet 200 mg 04-27 01:00: 00 Yes 200mg 200 mg, Oral, BID, First dose on Fri04/26/24 at 2000, Until Discontinu ed, Routine [facility] cholecalcif luis a (vitamin D3) tablet 1,000 Units 04-26 14:00: 00 Yes 1000U 1,000 Units, Oral, DAILY, First dose on Fri04/26/24 at 0900, Until Discontinu ed, Routine [facility] lisinopriL (PRINIVIL,Z ESTRIL) tablet 20 mg 04-26 14:00: 00 Yes 20mg 20 mg, Oral, DAILY, First dose on Fri04/26/24 at 0900, Until Discontinu ed, Routine [facility] empaglifloz in (JARDIANCE) tablet 25 mg 04-26 14:00: 00 Yes 25mg 25 mg, Oral, DAILY, First dose on Fri04/26/24 at 0900, Until Discontinu ed, Routine, Is this a home medication ? No [facility] citalopram (CELEXA) tablet 10 mg 04-26 14:00: 00 Yes 10mg 10 mg, Oral, DAILY, First dose on Fri04/26/24 at 0900, Until Discontinu ed, Routine [facility] ascorbic acid (vitamin C) (VITAMIN C) tablet 500 mg 04-26 13:00: 00 Yes 500mg 500 mg, Oral, BID, First dose on Fri04/26/24 at 0800, Until Discontinu ed, Routine [facility] zinc sulfate (ORAZINC) capsule 50 mg 04-26 13:00: 00 Yes 50mg 50 mg, Oral, TID, First dose on Fri04/26/24 at 0800, Until Discontinu ed, Routine [facility] apixaban (ELIQUIS) tablet 5 mg 04-26 13:00: 00 Yes 5mg 5 mg, Oral, BID, First dose on Fri04/26/24 at 0800, Until Discontinu ed, Routine, Indication s: Non-Valvul ar Atrial Fibrillati on [facility] Sliding Scale Insulin-Reg ular 04-26 12:30: 00 Yes Subcutaneo us, AC+HS, First dose on Fri04/26/24 at 0730, Until Discontinu ed, Routine [facility] pantoprazol e (PROTONIX) EC tablet 40 mg 04-26 11:00: 00 Yes 40mg 40 mg, Oral, QAM-0600, First dose on Fri04/26/24 at 0600, Until Discontinu ed [facility] diltiazem (CARDIZEM) tablet 30 mg 04-26 11:00: 00 Yes 30mg 30 mg, Oral, Q8H, First dose on Fri04/26/24 at 0600, Until Discontinu ed, Routine [facility] cyclobenzap rine (FLEXERIL) tablet 10 mg 04-26 07:29: 47 Yes 10mg 10 mg, Oral, TIDPRN, Starting on Fri04/26/24 at 0229, Until Discontinu ed, Routine, Muscle Spasms [facility] amiodarone 150 mg/100 mL (NEXTERONE) RTU infusion 150 mg 04-26 04:45: 00 04-26 04:49 :00 No 150mg 150 mg, IV Piggyback, ONCE, 1 dose, On Fri04/25/24 at 2345, Administer over 10 Minutes, 100 mL [facility] magnesium sulfate in D5W 1 gram/100 mL RTU IV Piggyback 1 g 04-26 04:30: 00 04-26 04:49 :00 No 1g 1 g, IV Piggyback, ONCE, 1 dose, On Fri04/25/24 at 2330, Administer over 60 Minutes, 100 mL [facility] glucagon HCL injection 1 mg 04-26 04:24: 46 Yes 1mg [facility] dextrose 50 % in water (D50W) injection 25 mL 04-26 04:24: 45 Yes 25mL [facility] ondansetron (ZOFRAN (PF)) injection 4 mg 04-26 04:24: 35 Yes 4mg 4 mg, Slow IV Push, Q6HPRN, Starting on Fri04/25/24 at 2324, Until Discontinu ed, Routine, Nausea and Vomiting (N/V) [facility] traMADoL (ULTRAM) tablet 50 mg 04-26 04:24: 27 04-28 04:23 :27 No 50mg 50 mg, Oral, Q8HPRN, Starting on Fri04/25/24 at 2324, Until 04/27/24 at 2323, Routine, Pain (scale 4-6) [facility] acetaminoph en (TYLENOL) tablet 650 mg 04-26 04:24: 25 Yes 650mg 650 mg, Oral, Q6HPRN, Starting on Fri04/25/24 at 2324, Until Discontinu ed, Routine, Pain (scale 1-3) [facility] NaCl 0.9% (NS) bolus infusion 1,000 mL 04-26 04:00: 00 04-26 04:39 :00 No 1000mL at 999 mL/hr, 1,000 mL, IV Infusion, ONCE, 1 dose, On Fri04/25/24 at 2300, STAT [facility] ondansetron (ZOFRAN (PF)) injection 4 mg 04-26 03:00: 00 04-26 02:27 :00 No 4mg 4 mg, Slow IV Push, ONCE, 1 dose, On Fri04/25/24 at 2200, SANG [facility] acetaminoph en (TYLENOL) tablet 975 mg 04-26 03:00: 00 04-26 02:27 :00 No 975mg 975 mg, Oral, ONCE, 1 dose, On Fri04/25/24 at 2200, SANG [facility] BD INSULIN PEN NEEDLE UF 31 gauge x 5/16" Ndle 04-06 00:00: 00 Yes USE DIRECTED ONCE DAILY [facility] FREESTYLE MARGOT 3 SENSOR Annette 04-05 00:00: 00 Yes USE 1 SENSOR DIRECTED UNDER THE SKIN EVERY 14 DAYS [facility] oxybutynin XL 5 mg 24 hr tablet 04-05 00:00: 00 07-05 05:59 :00 No 5mg Take 1 tablet by mouth in the morning. [facility] enoxaparin (LOVENOX) 100 mg/mL injection 6-13 00:00: 00 02-14 04:59 :00 No [id number] 90mg inject 0.9 mL under the skin every 12 (twelve) hours for 2 days. [facility] diltiazem 30 mg tablet -02 00:00: 00 Yes [id number] 30mg Take 1 tablet by mouth every 8 (eight) hours. [facility] empaglifloz in 25 mg Tab 12-18 15:19: 50 Yes Take by mouth daily. [facility] diclofenac 75 mg EC tablet 12-18 15:19: 50 Yes 75mg Take 1 tablet by mouth in the morning and 1 tablet in the evening. Take with meals. [facility] doxycycline hyclate (Vibramycin ) capsule 100 mg 11 00:00: 00 11-15 22:59 :00 No [id number] 100mg 100 mg, Oral, Q12HA2, 14 doses, First dose on Fri11/08/22 at 1800, Last dose on Fri11/15/22 at 0600, SANG
Re ason for Anti-Infec tive: Surgical Prophylaxi s
Surgi kin Prophylaxi s: Cardiothor acic
Du ration of therapy: within 24 hours of surgery [facility] empaglifloz in 25 mg Tab 11-08 19:04: 14 Yes Take by mouth daily. [facility] diclofenac 75 mg EC tablet 11-08 19:04: 14 Yes 75mg Take 1 tablet by mouth in the morning and 1 tablet in the evening. Take with meals. [facility] coenzyme Q10 100 mg softgel 11-08 19:04: 14 04-26 00:00 :00 No 100mg Take 1 capsule by mouth in the morning. [facility] loratadine 10 mg capsule 11-08 19:04: 14 04-23 00:00 :00 No Take by mouth as needed. [facility] empaglifloz in (JARDIANCE) tablet 25 mg 11-08 15:00: 00 Yes [id number] 25mg 25 mg, Oral, DAILY, First dose on Fri11/08/22 at 0900, Until Discontinu ed
Is this a home medication ? Yes
Has this patient brought their own medication ? No
Rafael diazy will dispense the medication from inpatient. Pharmacy will dispense the medication from inpatient.
Inpati ent ordering of this medication is not allowed unless the patient is maintained on this medication at home, and home supply is unavailabl e. Does this order meet the criteria for inpatient ordering? Yes [facility] citalopram (CELEXA) tablet 10 mg 11-08 15:00: 00 Yes [id number] 10mg 10 mg, Oral, DAILY, First dose on Fri11/08/22 at 0900, Until Discontinu ed, Routine [facility] vancomycin 1250 mg in NS 250 mL RTU IV Piggyback 1,250 mg 11-08 08:00: 00 11-08 20:49 :00 No [id number] 1250mg 1,250 mg, IV Piggyback, Q12H ABX, 2 doses, First dose on Fri11/08/22 at 0200, Last dose on Fri11/08/22 at 1400, Administer over 90 Minutes, 250 mL, CV Recovery to Floor
R corie for Anti-Infec tive: Surgical Prophylaxi s
Surgi kin Prophylaxi s: Cardiothor acic
Du ration of therapy: within 24 hours of surgery [facility] HYDROcodone -acetaminop hen (NORCO 5) 5-325 mg tablet 1 tablet 11-08 05:09: 59 Yes [id number] 1{tbl} 1 tablet, Oral, Q6HPRN, 2 doses, Starting on Kirti 11/07/22 at 2309, Until Discontinu ed, Routine, Pain (scale 7-10), Pain (scale 4-6) [facility] diltiazem (CARDIZEM) tablet 30 mg 11-08 04:00: 00 Yes [id number] 30mg 30 mg, Oral, Q8H, First dose on Fri11/07/22 at 2200, Until Discontinu ed, Routine [facility] atorvastati n (LIPITOR) tablet 40 mg 11-08 03:00: 00 Yes [id number] 40mg 40 mg, Oral, QHS, First dose on Kirti 11/07/22 at 2100, Until Discontinu ed, Routine [facility] lisinopriL (PRINIVIL,Z ESTRIL) tablet 20 mg 11-08 02:00: 00 Yes [id number] 20mg 20 mg, Oral, BID, First dose on Kirti 11/07/22 at 2000, Until Discontinu ed, Routine [facility] HYDROcodone -acetaminop hen (NORCO 5) 5-325 mg tablet 1 tablet 11-08 00:45: 00 11-07 23:51 :00 No [id number] 1{tbl} 1 tablet, Oral, ONCE, 1 dose, On Kirti 11/07/22 at 1845, Routine [facility] doxycycline hyclate 100 mg capsule 11-08 00:00: 00 11-16 04:59 :00 No [id number] 100mg Take 1 capsule by mouth every 12 (twelve) hours for 7 days. [facility] cyclobenzap rine (FLEXERIL) tablet 10 mg 11-07 22:17: 45 Yes [id number] 10mg 10 mg, Oral, TIDPRN, Starting on Fri11/07/22 at 1617, Until Discontinu ed, Routine, Muscle Spasms [facility] iohexol (OMNIPAQUE 300-100 mL) injection 11-07 21:55: 00 Yes ONCE INTRA PROCEDURE, Starting on Fri11/07/22 at 1555, Until Discontinu ed, Routine, CV Intraproce dure [facility] lidocaine 1% (PF) (XYLOCAINE) injection 11-07 20:42: 02 11-07 21:59 :55 No ONCE INTRA PROCEDURE, Starting on Kirti 3/9/23 at 1442, Until Kirti 11/07/22 at 1559, Routine, CV Intraproce dure [facility] vancomycin 1000 mg in NS 200 mL RTU IV Piggyback 11-07 20:35: 00 11-07 20:30 :00 No CONTINUOUS PRN, Starting on Kirti 11/07/22 at 1435, Until Kirti 11/07/22 at 1430, Administer over 60 Minutes, CV Intraproce dure [facility] midazolam (VERSED) injection 11-07 20:30: 58 11-07 21:59 :55 No ONCE INTRA PROCEDURE, Starting on Kirti 11/07/22 at 1430, Until Kirti 11/07/22 at 1559, Routine, CV Intraproce dure [facility] FENTanyl PF (SUBLIMAZE (PF)) injection 11-07 20:30: 42 11-07 21:59 :55 No ONCE INTRA PROCEDURE, Starting on Kirti 11/07/22 at 1430, Until Kirti 11/07/22 at 1559, Routine, CV Intraproce dure [facility] coenzyme Q10 100 mg softgel 10-03 14:57: 35 Yes 100mg Take 100 mg by mouth daily. [facility] coenzyme Q10 100 mg softgel 09-23 13:55: 38 Yes 100mg Take 100 mg by mouth daily. [facility] atorvastati n 40 mg tablet 09-23 00:00: 00 Yes [id number] 9109 40mg Take 1 tablet by mouth at bedtime. [facility] diltiazem 30 mg tablet 09-23 00:00: 00 01-31 00:00 :00 No [id number] 9109 30mg Take 1 tablet by mouth every 8 (eight) hours. [facility] empaglifloz in 25 mg Tab 09-19 16:16: 02 Yes Take by mouth daily. [facility] loratadine 10 mg capsule 09-19 16:16: 02 Yes Take by mouth as needed. [facility] coenzyme Q10 100 mg softgel 09-19 16:16: 02 Yes 100mg Take 100 mg by mouth daily. [facility] diltiazem 30 mg tablet 09-19 00:00: 00 09-23 00:00 :00 No [id number] 9109 30mg Take 1 tablet by mouth every 8 (eight) hours for 30 days. [facility] diltiazem (CARDIZEM) tablet 30 mg 09-18 20:00: 00 Yes 30mg 30 mg, Oral, Q8H, First dose (after last modificati on) on Fri09/18/22 at 1400, Until Discontinu ed, Routine [facility] atorvastati n (LIPITOR) tablet 40 mg 09-18 03:00: 00 Yes 40mg 40 mg, Oral, QHS, First dose on Fri09/17/22 at 2100, Until Discontinu ed, Routine [facility] empaglifloz in (JARDIANCE) tablet 25 mg 09-17 15:00: 00 Yes 25mg 25 mg, Oral, DAILY, First dose on Fri09/17/22 at 0900, Until Discontinu ed
Is this a home medication ? Yes
Has this patient brought their own medication ? No
Marianr china will dispense the medication from inpatient. Pharmacy will dispense the medication from inpatient.
Inpati ent ordering of this medication is not allowed unless the patient is maintained on this medication at home, and home supply is unavailabl e. Does this order meet the criteria for inpatient ordering? Yes [facility] citalopram (CELEXA) tablet 10 mg 09-17 15:00: 00 Yes 10mg 10 mg, Oral, DAILY, First dose on Fri09/17/22 at 0900, Until Discontinu ed, Routine [facility] apixaban (ELIQUIS) tablet 5 mg 09-17 14:00: 00 Yes 5mg 5 mg, Oral, BID, First dose on Fri09/17/22 at 0800, Until Discontinu ed, Routine
Indicatio ns: Non-Valvul ar Atrial Fibrillati on [facility] Sliding Scale Insulin-Reg ular + Fsbg Testing 09-17 13:30: 00 Yes Subcutaneo us, AC+HS, First dose on Fri09/17/22 at 0730, Until Discontinu ed, Routine [facility] NaCl 0.9% (NS) IV infusion 1,000 mL 09-17 07:30: 00 09-17 17:41 :00 No 1000mL at 100 mL/hr, IV Infusion, ONCE, 1 dose, On Fri09/17/22 at 0130, Routine [facility] glucagon (GLUCAGEN DIAGNOSTIC KIT) injection 1 mg 09-17 04:21: 18 Yes 1mg 1 mg, Intramuscu lar, PRN, Starting on Fri09/16/22 at 2221, Until Discontinu ed, SANG, Blood Glucose < or = 70 mg/dL and patient is unable to swallow or has mental changes. [facility] dextrose 50 % in water (D50W) injection 25 mL 09-17 04:21: 18 Yes 25mL 25 mL, Slow IV Push, PRN, Starting on Fri09/16/22 at 2221, Until Discontinu ed, SANG, Blood Glucose < or = 70 mg/dL and patient is unable to swallow or has mental status changes. [facility] cyclobenzap rine (FLEXERIL) tablet 10 mg 09-17 04:13: 32 Yes 10mg 10 mg, Oral, TIDPRN, Starting on Fri09/16/22 at 2213, Until Discontinu ed, Routine, Muscle Spasms [facility] digoxin (LANOXIN) injection 500 mcg 09-17 02:15: 00 09-17 01:53 :00 No 500ug 500 mcg, Intravenou s, ONCE, 1 dose, On Fri09/16/22 at 2015, Routine [facility] diltiazem (CARDIZEM IV) injection 10 mg 09-17 02:15: 00 09-17 01:53 :00 No 10mg 10 mg, IV Push, ONCE, 1 dose, On Fri09/16/22 at 2015, STAT
Fa culty member approving Restricted medication : RUSSELL PAUL [facility] diltiazem (CARDIZEM) tablet 30 mg 09-17 00:00: 00 09-18 15:54 :29 No 30mg 30 mg, Oral, Q6H, First dose on Fri09/16/22 at 1800, Until Discontinu ed, Routine [facility] acetaminoph en-codeine (TYLENOL #3) 300-30 mg tablet 1 tablet 09-16 23:49: 01 09-18 23:48 :01 No 1{tbl} 1 tablet, Oral, Q6HPRN, Starting on Fri09/16/22 at 1749, Until Fri09/18/22 at 1748, Routine, Pain (scale 4-6) [facility] acetaminoph en (TYLENOL) tablet 650 mg 09-16 23:49: 00 Yes 650mg 650 mg, Oral, Q6HPRN, Starting on Fri09/16/22 at 1749, Until Discontinu ed, Routine, Pain (scale 1-3) [facility] diltiazem (CARDIZEM IV) injection 15 mg 09-16 23:45: 00 09-16 23:39 :00 No 15mg 15 mg, IV Push, ONCE, 1 dose, On Fri09/16/22 at 1745, STAT
Fa culty member approving Restricted medication : JACKI SAMUELS [facility] diltiazem (CARDIZEM IV) injection 25 mg 09-16 21:30: 00 09-16 21:20 :00 No 25mg 25 mg, IV Push, ONCE, 1 dose, On Fri09/16/22 at 1530, STAT
Fa culty member approving Restricted medication : JACKI SAMUELS [facility] lisinopriL 20 mg tablet 2021-09 14:37: 53 07-08 00:00 :00 No 20mg Take 20 mg by mouth 2 (two) times daily. [facility] lisinopriL 20 mg tablet 2021-09 00:00: 00 01-09 00:00 :00 No 20mg Take 1 tablet by mouth in the morning and 1 tablet in the evening. [facility] empaglifloz in 25 mg Tab 03-22 15:15: 24 Yes Take by mouth daily. [facility] loratadine 10 mg capsule 03-22 15:15: 24 Yes Take by mouth as needed. [facility] coenzyme Q10 100 mg softgel 03-22 15:15: 24 Yes 100mg Take 1 capsule by mouth in the morning. [facility] lisinopriL 20 mg tablet 03-22 15:15: 24 Yes 20mg Take 20 mg by mouth 2 (two) times daily. [facility] nitroglycer in (NITROSTAT) 0.4 mg sublingual tablet 01-09 13:20: 35 01-09 00:00 :[address] 0.4 mg under the tongue every 5 (five) minutes as needed for Chest pain. [facility] estradioL 0.01 % (0.1 mg/gram) vaginal cream 10-22 00:00: 00 04-26 00:00 :00 No [id number] Apply a thin layer to affected area twice per week [facility] amLODIPine 10 mg tablet 09-04 00:00: 00 09-23 00:00 :00 No [facility] amiodarone 200 mg tablet 2020-09 00:00: 00 01-09 00:00 :00 No [id number] 200mg Take 1 tablet by mouth daily. [facility] citalopram 10 mg tablet 2020-09 00:00: 00 Yes 10mg Take 1 tablet in the morning. [facility] atorvastati n 40 mg tablet 2019-09 0-30 00:00: 00 09-23 00:00 :00 No 40mg Take 1 tablet by mouth at bedtime. [facility] cyclobenzap rine 10 mg tablet 05-26 00:00: 00 07-20 00:00 :00 No [id number] 10mg Take 1 tablet by mouth 3 (three) times daily as needed for Muscle Spasms. Also for pain, spine. [facility] apixaban 5 mg tablet 02-03 00:00: 00 Yes [id number] 5mg Take 1 tablet by mouth 2 (two) times daily. [facility] calcium carbonate-v itamin D3 1,000 mg(2,500 mg)-800 unit Tab 05-06 00:00: 00 Yes 1{tbl} Take 1 Tab by mouth daily. [facility] dilTIAZem HCl 30 MG dilTIAZem HCl 30 MG No 1{table t} BID dilTIAZem HCl 30 MG Citalopram Hydrobromid e 20 MG Citalopram Hydrobromid e 20 MG No 1{table t} QD Citalopram Hydrobromi de 20 MG Atorvastati n Calcium 40 MG Atorvastati n Calcium 40 MG No 1{table t} QD Atorvastat in Calcium 40 MG Tresiba FlexTouch 100 UNIT/ML Tresiba FlexTouch 100 UNIT/ML No QD Tresiba FlexTouch 100 UNIT/ML hydroCHLORO thiazide 25 MG hydroCHLORO thiazide 25 MG No 1{table t_in_th e_morni ng} QD hydroCHLOR Othiazide 25 MG Eliquis 5 MG Eliquis 5 MG No 1{table t} Eliquis 5 MG Amiodarone HCl 200 MG Amiodarone HCl 200 MG No 1{table t} QD Amiodarone HCl 200 MG glipiZIDE 5 MG glipiZIDE 5 MG No QD glipiZIDE 5 MG Omeprazole 20 MG Omeprazole 20 MG No QD Omeprazole 20 MG Alendronate Sodium 70 MG Alendronate Sodium 70 MG No Alendronat e Sodium 70 MG oxyBUTYnin Chloride ER 5 MG oxyBUTYnin Chloride ER 5 MG No 1{table t} QD oxyBUTYnin Chloride ER 5 MG Farxiga 10 MG Farxiga 10 MG No 1{table t} QD Farxiga 10 MG Lisinopril 20 MG Lisinopril 20 MG No 1{table t} BID Lisinopril 20 MG Immunizations Ordered Immunization Name Filled Immunization Name Date Status Comments Source SARS-COV-2 COVID-19 MODERNA VACCINE 2020-11-04 00:00:00 Completed [facility] SARS-COV-2 COVID-19 MODERNA 12+ YRS VACCINE 2020-11-04 00:00:00 Completed [facility] SARS-COV-2 COVID-19 MODERNA 12+ YRS VACCINE 2020-11-04 00:00:00 Completed [facility] SARS-COV-2 COVID-19 MODERNA 12+ YRS VACCINE 2020-11-04 00:00:00 Completed [facility] SARS-COV-2 COVID-19 MODERNA 12+ YRS VACCINE 2020-11-04 00:00:00 Completed [facility] SARS-COV-2 COVID-19 MODERNA 12+ YRS VACCINE 2020-11-04 00:00:00 Completed [facility] SARS-COV-2 COVID-19 MODERNA 12+ YRS VACCINE 2020-11-04 00:00:00 Completed [facility] SARS-COV-2 COVID-19 MODERNA 12+ YRS VACCINE 2020-11-04 00:00:00 Completed [facility] SARS-COV-2 COVID-19 MODERNA 12+ YRS VACCINE 2020-11-04 00:00:00 Completed [facility] SARS-COV-2 COVID-19 MODERNA 12+ YRS VACCINE 2020-11-04 00:00:00 Completed [facility] SARS-COV-2 COVID-19 MODERNA 12+ YRS VACCINE 2020-11-04 00:00:00 Completed [facility] SARS-COV-2 COVID-19 MODERNA 12+ YRS VACCINE 2020-11-04 00:00:00 Completed [facility] SARS-COV-2 COVID-19 MODERNA 12+ YRS VACCINE 2020-11-04 00:00:00 Completed [facility] SARS-COV-2 COVID-19 MODERNA 12+ YRS VACCINE 2020-11-04 00:00:00 Completed [facility] SARS-COV-2 COVID-19 MODERNA 12+ YRS VACCINE 2020-11-04 00:00:00 Completed [facility] SARS-COV-2 COVID-19 MODERNA 12+ YRS VACCINE 2020-11-04 00:00:00 Completed [facility] SARS-COV-2 COVID-19 MODERNA 12+ YRS VACCINE 2020-11-04 00:00:00 Completed [facility] SARS-COV-2 COVID-19 MODERNA 12+ YRS VACCINE 2020-11-04 00:00:00 Completed [facility] SARS-COV-2 COVID-19 MODERNA 12+ YRS VACCINE 2020-11-04 00:00:00 Completed [facility] SARS-COV-2 COVID-19 MODERNA 12+ YRS VACCINE 2020-11-04 00:00:00 Completed [facility] SARS-COV-2 COVID-19 MODERNA 12+ YRS VACCINE 2020-11-04 00:00:00 Completed [facility] SARS-COV-2 COVID-19 MODERNA 12+ YRS VACCINE 2020-11-04 00:00:00 Completed [facility] SARS-COV-2 COVID-19 MODERNA 12+ YRS VACCINE 2020-11-04 00:00:00 Completed [facility] SARS-COV-2 COVID-19 MODERNA 12+ YRS VACCINE 2020-11-04 00:00:00 Completed [facility] SARS-COV-2 COVID-19 MODERNA 12+ YRS VACCINE 2020-11-04 00:00:00 Completed [facility] SARS-COV-2 COVID-19 MODERNA 12+ YRS VACCINE 2020-11-04 00:00:00 Completed [facility] SARS-COV-2 COVID-19 MODERNA 12+ YRS VACCINE 2020-11-04 00:00:00 Completed [facility] SARS-COV-2 COVID-19 MODERNA 12+ YRS VACCINE 2020-11-04 00:00:00 Completed [facility] SARS-COV-2 COVID-19 MODERNA 12+ YRS VACCINE 2020-11-04 00:00:00 Completed [facility] SARS-COV-2 COVID-19 MODERNA 12+ YRS VACCINE 2020-11-04 00:00:00 Completed [facility] SARS-COV-2 COVID-19 MODERNA 12+ YRS VACCINE 2020-11-04 00:00:00 Completed [facility] SARS-COV-2 COVID-19 MODERNA 12+ YRS VACCINE 2020-11-04 00:00:00 Completed [facility] SARS-COV-2 COVID-19 MODERNA 12+ YRS VACCINE 2020-11-04 00:00:00 Completed SARS-COV-2 COVID-19 MODERNA 12+ YRS VACCINE 2020-11-04 00:00:00 Completed SARS-COV-2 COVID-19 MODERNA VACCINE 2020-10-10 00:00:00 Completed [facility] SARS-COV-2 COVID-19 MODERNA 12+ YRS VACCINE 2020-10-10 00:00:00 Completed [facility] SARS-COV-2 COVID-19 MODERNA 12+ YRS VACCINE 2020-10-10 00:00:00 Completed [facility] SARS-COV-2 COVID-19 MODERNA 12+ YRS VACCINE 2020-10-10 00:00:00 Completed [facility] SARS-COV-2 COVID-19 MODERNA 12+ YRS VACCINE 2020-10-10 00:00:00 Completed [facility] SARS-COV-2 COVID-19 MODERNA 12+ YRS VACCINE 2020-10-10 00:00:00 Completed [facility] SARS-COV-2 COVID-19 MODERNA 12+ YRS VACCINE 2020-10-10 00:00:00 Completed [facility] SARS-COV-2 COVID-19 MODERNA 12+ YRS VACCINE 2020-10-10 00:00:00 Completed [facility] SARS-COV-2 COVID-19 MODERNA 12+ YRS VACCINE 2020-10-10 00:00:00 Completed [facility] SARS-COV-2 COVID-19 MODERNA 12+ YRS VACCINE 2020-10-10 00:00:00 Completed [facility] SARS-COV-2 COVID-19 MODERNA 12+ YRS VACCINE 2020-10-10 00:00:00 Completed [facility] SARS-COV-2 COVID-19 MODERNA 12+ YRS VACCINE 2020-10-10 00:00:00 Completed [facility] SARS-COV-2 COVID-19 MODERNA 12+ YRS VACCINE 2020-10-10 00:00:00 Completed [facility] SARS-COV-2 COVID-19 MODERNA 12+ YRS VACCINE 2020-10-10 00:00:00 Completed [facility] SARS-COV-2 COVID-19 MODERNA 12+ YRS VACCINE 2020-10-10 00:00:00 Completed [facility] SARS-COV-2 COVID-19 MODERNA 12+ YRS VACCINE 2020-10-10 00:00:00 Completed [facility] SARS-COV-2 COVID-19 MODERNA 12+ YRS VACCINE 2020-10-10 00:00:00 Completed [facility] SARS-COV-2 COVID-19 MODERNA 12+ YRS VACCINE 2020-10-10 00:00:00 Completed [facility] SARS-COV-2 COVID-19 MODERNA 12+ YRS VACCINE 2020-10-10 00:00:00 Completed [facility] SARS-COV-2 COVID-19 MODERNA 12+ YRS VACCINE 2020-10-10 00:00:00 Completed [facility] SARS-COV-2 COVID-19 MODERNA 12+ YRS VACCINE 2020-10-10 00:00:00 Completed [facility] SARS-COV-2 COVID-19 MODERNA 12+ YRS VACCINE 2020-10-10 00:00:00 Completed [facility] SARS-COV-2 COVID-19 MODERNA 12+ YRS VACCINE 2020-10-10 00:00:00 Completed [facility] SARS-COV-2 COVID-19 MODERNA 12+ YRS VACCINE 2020-10-10 00:00:00 Completed [facility] SARS-COV-2 COVID-19 MODERNA 12+ YRS VACCINE 2020-10-10 00:00:00 Completed [facility] SARS-COV-2 COVID-19 MODERNA 12+ YRS VACCINE 2020-10-10 00:00:00 Completed [facility] SARS-COV-2 COVID-19 MODERNA 12+ YRS VACCINE 2020-10-10 00:00:00 Completed [facility] SARS-COV-2 COVID-19 MODERNA 12+ YRS VACCINE 2020-10-10 00:00:00 Completed [facility] SARS-COV-2 COVID-19 MODERNA 12+ YRS VACCINE 2020-10-10 00:00:00 Completed [facility] SARS-COV-2 COVID-19 MODERNA 12+ YRS VACCINE 2020-10-10 00:00:00 Completed [facility] SARS-COV-2 COVID-19 MODERNA 12+ YRS VACCINE 2020-10-10 00:00:00 Completed [facility] SARS-COV-2 COVID-19 MODERNA 12+ YRS VACCINE 2020-10-10 00:00:00 Completed [facility] SARS-COV-2 COVID-19 MODERNA 12+ YRS VACCINE 2020-10-10 00:00:00 Completed SARS-COV-2 COVID-19 MODERNA 12+ YRS VACCINE 2020-10-10 00:00:00 Completed Influenza Virus Vaccine Quad .5 mL IM 6+ MO 2020-07-07 00:00:00 Completed [facility] Influenza Virus Vaccine Quad .5 mL IM 6+ MO 2020-07-07 00:00:00 Completed [facility] Influenza Virus Vaccine Quad .5 mL IM 6+ MO 2020-07-07 00:00:00 Completed [facility] Influenza Virus Vaccine Quad .5 mL IM 6+ MO 2020-07-07 00:00:00 Completed [facility] Influenza Virus Vaccine Quad .5 mL IM 6+ MO 2020-07-07 00:00:00 Completed [facility] Influenza Virus Vaccine Quad .5 mL IM 6+ MO 2020-07-07 00:00:00 Completed [facility] Influenza Virus Vaccine Quad .5 mL IM 6+ MO 2020-07-07 00:00:00 Completed [facility] Influenza Virus Vaccine Quad .5 mL IM 6+ MO 2020-07-07 00:00:00 Completed [facility] Influenza Virus Vaccine Quad .5 mL IM 6+ MO 2020-07-07 00:00:00 Completed [facility] Influenza Virus Vaccine Quad .5 mL IM 6+ MO 2020-07-07 00:00:00 Completed [facility] Influenza Virus Vaccine Quad .5 mL IM 6+ MO 2020-07-07 00:00:00 Completed [facility] Influenza Virus Vaccine Quad .5 mL IM 6+ MO 2020-07-07 00:00:00 Completed [facility] Influenza Virus Vaccine Quad .5 mL IM 6+ MO 2020-07-07 00:00:00 Completed [facility] Influenza Virus Vaccine Quad .5 mL IM 6+ MO 2020-07-07 00:00:00 Completed [facility] Influenza Virus Vaccine Quad .5 mL IM 6+ MO 2020-07-07 00:00:00 Completed [facility] Influenza Virus Vaccine Quad .5 mL IM 6+ MO 2020-07-07 00:00:00 Completed [facility] Influenza Virus Vaccine Quad .5 mL IM 6+ MO 2020-07-07 00:00:00 Completed [facility] Influenza Virus Vaccine Quad .5 mL IM 6+ MO 2020-07-07 00:00:00 Completed [facility] Influenza Virus Vaccine Quad .5 mL IM 6+ MO 2020-07-07 00:00:00 Completed [facility] Influenza Virus Vaccine Quad .5 mL IM 6+ MO 2020-07-07 00:00:00 Completed [facility] Influenza Virus Vaccine Quad .5 mL IM MO 2020-07-07 00:00:00 Completed [facility] Influenza Virus Vaccine Quad .5 mL IM 6+ MO 2020-07-07 00:00:00 Completed [facility] Influenza Virus Vaccine Quad .5 mL IM 62020-07-07 00:00:00 Completed [facility] Influenza Virus Vaccine Quad .5 mL IM 2020-07-07 00:00:00 Completed [facility] Influenza Virus Vaccine Quad .5 mL IM + MO 2020-07-07 00:00:00 Completed [facility] Influenza Virus Vaccine Quad .5 mL IM 6+ MO 2020-07-07 00:00:00 Completed [facility] Influenza Virus Vaccine Quad .5 mL IM 6+ MO 2020-07-07 00:00:00 Completed [facility] Influenza Virus Vaccine Quad .5 mL IM 6+ MO 2020-07-07 00:00:00 Completed [facility] Influenza Virus Vaccine Quad .5 mL IM 6+ MO 2020-07-07 00:00:00 Completed [facility] Influenza Virus Vaccine Quad .5 mL IM 6+ MO 2020-07-07 00:00:00 Completed [facility] Influenza Virus Vaccine Quad .5 mL IM 6+ MO 2020-07-07 00:00:00 Completed [facility] Influenza Virus Vaccine Quad .5 mL IM 6+ MO 2020-07-07 00:00:00 Completed [facility] Influenza Virus Vaccine Quad .5 mL IM 6+ MO (FLUZONE/FLULAVAL/F LUARIX) 2020-07-07 00:00:00 Completed [facility] Influenza Virus Vaccine Quad .5 mL IM 6+ MO (FLUZONE/FLULAVAL/F LUARIX) 2020-07-07 00:00:00 Completed [facility] TDAP 2019-06-05 00:00:00 Completed [facility] TDAP 2019-06-05 00:00:00 Completed [facility] TDAP 2019-06-05 00:00:00 Completed [facility] TDAP 2019-06-05 00:00:00 Completed [facility] TDAP 2019-06-05 00:00:00 Completed [facility] TDAP 2019-06-05 00:00:00 Completed [facility] TDAP 2019-06-05 00:00:00 Completed [facility] TDAP 2019-06-05 00:00:00 Completed [facility] TDAP 2019-06-05 00:00:00 Completed [facility] [place] TDAP 2019-06-05 00:00:00 Completed [facility] [place] TDAP 2019-06-05 00:00:00 Completed [facility] TDAP 2019-06-05 00:00:00 Completed [facility] TDAP 2019-06-05 00:00:00 Completed [facility] [place] TDAP 2019-06-05 00:00:00 Completed [facility] [place] TDAP 2019-06-05 00:00:00 Completed [facility] [place] TDAP 2019-06-05 00:00:00 Completed [facility] [place] TDAP 2019-06-05 00:00:00 Completed [facility] [place] TDAP 2019-06-05 00:00:00 Completed [facility] [place] TDAP 2019-06-05 00:00:00 Completed [facility] [place] TDAP 2019-06-05 00:00:00 Completed [facility] [place] TDAP 2019-06-05 00:00:00 Completed [facility] TDAP 2019-06-05 00:00:00 Completed [facility] TDAP 2019-06-05 00:00:00 Completed [facility] TDAP 2019-06-05 00:00:00 Completed [facility] TDAP 2019-06-05 00:00:00 Completed [facility] TDAP 2019-06-05 00:00:00 Completed [facility] TDAP 2019-06-05 00:00:00 Completed [facility] TDAP 2019-06-05 00:00:00 Completed [facility] TDAP 2019-06-05 00:00:00 Completed [facility] TDAP 2019-06-05 00:00:00 Completed [facility] TDAP 2019-06-05 00:00:00 Completed [facility] TDAP 2019-06-05 00:00:00 Completed [facility] TDAP 2019-06-05 00:00:00 Completed [facility] TDAP 2019-06-05 00:00:00 Completed [facility] TDAP 2019-06-05 00:00:00 Completed [facility] Influenza Virus Vaccine Quad IM 3+ YRS 2019-06-01 00:00:00 Completed [facility] Influenza Virus Vaccine Quad IM 3+ YRS 2019-06-01 00:00:00 Completed [facility] Influenza Virus Vaccine Quad IM 3+ YRS 2019-06-01 00:00:00 Completed [facility] Influenza Virus Vaccine Quad IM 3+ YRS 2019-06-01 00:00:00 Completed [facility] Influenza Virus Vaccine Quad IM 3+ YRS 2019-06-01 00:00:00 Completed [facility] Influenza Virus Vaccine Quad IM 3+ YRS 2019-06-01 00:00:00 Completed [facility] Influenza Virus Vaccine Quad IM 3+ YRS 2019-06-01 00:00:00 Completed [facility] Influenza Virus Vaccine Quad IM 3+ YRS 2019-06-01 00:00:00 Completed [facility] Influenza Virus Vaccine Quad IM 3+ YRS 2019-06-01 00:00:00 Completed [facility] Influenza Virus Vaccine Quad IM 3+ YRS 2019-06-01 00:00:00 Completed [facility] Influenza Virus Vaccine Quad IM 3+ YRS 2019-06-01 00:00:00 Completed [facility] Influenza Virus Vaccine Quad IM 3+ YRS 2019-06-01 00:00:00 Completed [facility] Influenza Virus Vaccine Quad IM 3+ YRS 2019-06-01 00:00:00 Completed [facility] Influenza Virus Vaccine Quad IM 3+ YRS 2019-06-01 00:00:00 Completed [facility] Influenza Virus Vaccine Quad IM 3+ YRS 2019-06-01 00:00:00 Completed [facility] Influenza Virus Vaccine Quad IM 3+ YRS 2019-06-01 00:00:00 Completed [facility] Influenza Virus Vaccine Quad IM 3+ YRS 2019-06-01 00:00:00 Completed [facility] Influenza Virus Vaccine Quad IM 3+ YRS 2019-06-01 00:00:00 Completed [facility] Influenza Virus Vaccine Quad IM 3+ YRS 2019-06-01 00:00:00 Completed [facility] Influenza Virus Vaccine Quad IM 3+ YRS 2019-06-01 00:00:00 Completed [facility] Influenza Virus Vaccine Quad IM 3+ YRS 2019-06-01 00:00:00 Completed [facility] Influenza Virus Vaccine Quad IM 3+ YRS 2019-06-01 00:00:00 Completed [facility] Influenza Virus Vaccine Quad IM 3+ YRS 2019-06-01 00:00:00 Completed [facility] Influenza Virus Vaccine Quad IM 3+ YRS 2019-06-01 00:00:00 Completed [facility] Influenza Virus Vaccine Quad IM 3+ YRS 2019-06-01 00:00:00 Completed [facility] Influenza Virus Vaccine Quad IM 3+ YRS 2019-06-01 00:00:00 Completed [facility] Influenza Virus Vaccine Quad IM 3+ YRS 2019-06-01 00:00:00 Completed [facility] Influenza Virus Vaccine Quad IM 3+ YRS 2019-06-01 00:00:00 Completed [facility] Influenza Virus Vaccine Quad IM 3+ YRS 2019-06-01 00:00:00 Completed [facility] Influenza Virus Vaccine Quad IM 3+ YRS 2019-06-01 00:00:00 Completed [facility] Influenza Virus Vaccine Quad IM 3+ YRS 2019-06-01 00:00:00 Completed [facility] Influenza Virus Vaccine Quad IM 3+ YRS 2019-06-01 00:00:00 Completed [facility] Influenza Virus Vaccine Quad IM 3+ YRS 2019-06-01 00:00:00 Completed [facility] Influenza Virus Vaccine Quad IM 3+ YRS 2019-06-01 00:00:00 Completed Influenza Virus Vaccine Quad IM 3+ YRS 2019-06-01 00:00:00 Completed Influenza Virus Vaccine Quad IM Multi-dose 6+ MO 2016-09-27 00:00:00 Completed [facility] Influenza Virus Vaccine Quad IM Multi-dose 6+ MO 2016-09-27 00:00:00 Completed [facility] Influenza Virus Vaccine Quad IM Multi-dose 6+ MO 2016-09-27 00:00:00 Completed [facility] Influenza Virus Vaccine Quad IM Multi-dose 6+ MO 2016-09-27 00:00:00 Completed [facility] Influenza Virus Vaccine Quad IM Multi-dose 6+ MO 2016-09-27 00:00:00 Completed [facility] Influenza Virus Vaccine Quad IM Multi-dose 6+ MO 2016-09-27 00:00:00 Completed [facility] Influenza Virus Vaccine Quad IM Multi-dose 6+ MO 2016-09-27 00:00:00 Completed [facility] Influenza Virus Vaccine Quad IM Multi-dose 6+ MO 2016-09-27 00:00:00 Completed [facility] Influenza Virus Vaccine Quad IM Multi-dose 6+ MO 2016-09-27 00:00:00 Completed [facility] Influenza Virus Vaccine Quad IM Multi-dose 6+ MO 2016-09-27 00:00:00 Completed [facility] Influenza Virus Vaccine Quad IM Multi-dose 6+ MO 2016-09-27 00:00:00 Completed [facility] Influenza Virus Vaccine Quad IM Multi-dose 6+ MO 2016-09-27 00:00:00 Completed [facility] Influenza Virus Vaccine Quad IM Multi-dose 6+ MO 2016-09-27 00:00:00 Completed [facility] Influenza Virus Vaccine Quad IM Multi-dose 6+ MO 2016-09-27 00:00:00 Completed [facility] Influenza Virus Vaccine Quad IM Multi-dose 6+ MO 2016-09-27 00:00:00 Completed [facility] Influenza Virus Vaccine Quad IM Multi-dose 6+ MO 2016-09-27 00:00:00 Completed [facility] Influenza Virus Vaccine Quad IM Multi-dose 6+ MO 2016-09-27 00:00:00 Completed [facility] Influenza Virus Vaccine Quad IM Multi-dose 6+ MO 2016-09-27 00:00:00 Completed [facility] Influenza Virus Vaccine Quad IM Multi-dose 6+ MO 2016-09-27 00:00:00 Completed [facility] Influenza Virus Vaccine Quad IM Multi-dose 6+ MO 2016-09-27 00:00:00 Completed [facility] Influenza Virus Vaccine Quad IM Multi-dose 6+ MO 2016-09-27 00:00:00 Completed [facility] Influenza Virus Vaccine Quad IM Multi-dose 6+ MO 2016-09-27 00:00:00 Completed [facility] Influenza Virus Vaccine Quad IM Multi-dose 6+ MO 2016-09-27 00:00:00 Completed [facility] Influenza Virus Vaccine Quad IM Multi-dose 6+ MO 2016-09-27 00:00:00 Completed [facility] Influenza Virus Vaccine Quad IM Multi-dose 6+ MO 2016-09-27 00:00:00 Completed [facility] Influenza Virus Vaccine Quad IM Multi-dose 6+ MO 2016-09-27 00:00:00 Completed [facility] Influenza Virus Vaccine Quad IM Multi-dose 6+ MO 2016-09-27 00:00:00 Completed [facility] Influenza Virus Vaccine Quad IM Multi-dose 6+ MO 2016-09-27 00:00:00 Completed [facility] Influenza Virus Vaccine Quad IM Multi-dose 6+ MO 2016-09-27 00:00:00 Completed [facility] Influenza Virus Vaccine Quad IM Multi-dose 6+ MO 2016-09-27 00:00:00 Completed [facility] Influenza Virus Vaccine Quad IM Multi-dose 6+ MO 2016-09-27 00:00:00 Completed [facility] Influenza Virus Vaccine Quad IM Multi-dose 6+ MO 2016-09-27 00:00:00 Completed [facility] Influenza Virus Vaccine Quad IM Multi-dose 6+ MO 2016-09-27 00:00:00 Completed [facility] Influenza Virus Vaccine Quad IM Multi-dose 6+ MO 2016-09-27 00:00:00 Completed Influenza Virus Vaccine Quad IM Multi-dose 6+ MO 2016-09-27 00:00:00 Completed Influenza Virus Vaccine Quad IM 3+ YRS 2015-08-22 00:00:00 Completed [facility] Influenza Virus Vaccine Quad IM 3+ YRS 2015-08-22 00:00:00 Completed [facility] Influenza Virus Vaccine Quad IM 3+ YRS 2015-08-22 00:00:00 Completed [facility] Influenza Virus Vaccine Quad IM 3+ YRS 2015-08-22 00:00:00 Completed [facility] Influenza Virus Vaccine Quad IM 3+ YRS 2015-08-22 00:00:00 Completed [facility] Influenza Virus Vaccine Quad IM 3+ YRS 2015-08-22 00:00:00 Completed [facility] Influenza Virus Vaccine Quad IM 3+ YRS 2015-08-22 00:00:00 Completed [facility] Influenza Virus Vaccine Quad IM 3+ YRS 2015-08-22 00:00:00 Completed [facility] Influenza Virus Vaccine Quad IM 3+ YRS 2015-08-22 00:00:00 Completed [facility] Influenza Virus Vaccine Quad IM 3+ YRS 2015-08-22 00:00:00 Completed [facility] Influenza Virus Vaccine Quad IM 3+ YRS 2015-08-22 00:00:00 Completed [facility] Influenza Virus Vaccine Quad IM 3+ YRS 2015-08-22 00:00:00 Completed [facility] Influenza Virus Vaccine Quad IM 3+ YRS 2015-08-22 00:00:00 Completed [facility] Influenza Virus Vaccine Quad IM 3+ YRS 2015-08-22 00:00:00 Completed [facility] Influenza Virus Vaccine Quad IM 3+ YRS 2015-08-22 00:00:00 Completed [facility] Influenza Virus Vaccine Quad IM 3+ YRS 2015-08-22 00:00:00 Completed [facility] Influenza Virus Vaccine Quad IM 3+ YRS 2015-08-22 00:00:00 Completed [facility] Influenza Virus Vaccine Quad IM 3+ YRS 2015-08-22 00:00:00 Completed [facility] Influenza Virus Vaccine Quad IM 3+ YRS 2015-08-22 00:00:00 Completed [facility] Influenza Virus Vaccine Quad IM 3+ YRS 2015-08-22 00:00:00 Completed [facility] Influenza Virus Vaccine Quad IM 3+ YRS 2015-08-22 00:00:00 Completed [facility] Influenza Virus Vaccine Quad IM 3+ YRS 2015-08-22 00:00:00 Completed [facility] Influenza Virus Vaccine Quad IM 3+ YRS 2015-08-22 00:00:00 Completed [facility] Influenza Virus Vaccine Quad IM 3+ YRS 2015-08-22 00:00:00 Completed [facility] Influenza Virus Vaccine Quad IM 3+ YRS 2015-08-22 00:00:00 Completed [facility] Influenza Virus Vaccine Quad IM 3+ YRS 2015-08-22 00:00:00 Completed [facility] Influenza Virus Vaccine Quad IM 3+ YRS 2015-08-22 00:00:00 Completed [facility] Influenza Virus Vaccine Quad IM 3+ YRS 2015-08-22 00:00:00 Completed [facility] Influenza Virus Vaccine Quad IM 3+ YRS 2015-08-22 00:00:00 Completed [facility] Influenza Virus Vaccine Quad IM 3+ YRS 2015-08-22 00:00:00 Completed [facility] Influenza Virus Vaccine Quad IM 3+ YRS 2015-08-22 00:00:00 Completed [facility] Influenza Virus Vaccine Quad IM 3+ YRS 2015-08-22 00:00:00 Completed [facility] Influenza Virus Vaccine Quad IM 3+ YRS 2015-08-22 00:00:00 Completed [facility] Influenza Virus Vaccine Quad IM 3+ YRS 2015-08-22 00:00:00 Completed [facility] Influenza Virus Vaccine Quad IM 3+ YRS 2015-08-22 00:00:00 Completed [facility] Pneumococcal Polysaccharide, PPSV23 (PNEUMOVAX) 2013-08-10 00:00:00 Completed [facility] Pneumococcal Polysaccharide, PPSV23 (PNEUMOVAX) 2013-08-10 00:00:00 Completed [facility] Pneumococcal Polysaccharide, PPSV23 (PNEUMOVAX) 2013-08-10 00:00:00 Completed [facility] Pneumococcal Polysaccharide, PPSV23 (PNEUMOVAX) 2013-08-10 00:00:00 Completed [facility] Pneumococcal Polysaccharide, PPSV23 (PNEUMOVAX) 2013-08-10 00:00:00 Completed [facility] Pneumococcal Polysaccharide, PPSV23 (PNEUMOVAX) 2013-08-10 00:00:00 Completed [facility] Pneumococcal Polysaccharide, PPSV23 (PNEUMOVAX) 2013-08-10 00:00:00 Completed [facility] Pneumococcal Polysaccharide, PPSV23 (PNEUMOVAX) 2013-08-10 00:00:00 Completed [facility] Pneumococcal Polysaccharide, PPSV23 (PNEUMOVAX) 2013-08-10 00:00:00 Completed [facility] Pneumococcal Polysaccharide, PPSV23 (PNEUMOVAX) 2013-08-10 00:00:00 Completed [facility] Pneumococcal Polysaccharide, PPSV23 (PNEUMOVAX) 2013-08-10 00:00:00 Completed [facility] Pneumococcal Polysaccharide, PPSV23 (PNEUMOVAX) 2013-08-10 00:00:00 Completed [facility] Pneumococcal Polysaccharide, PPSV23 (PNEUMOVAX) 2013-08-10 00:00:00 Completed [facility] Pneumococcal Polysaccharide, PPSV23 (PNEUMOVAX) 2013-08-10 00:00:00 Completed [facility] Pneumococcal Polysaccharide, PPSV23 (PNEUMOVAX) 2013-08-10 00:00:00 Completed [facility] Pneumococcal Polysaccharide, PPSV23 (PNEUMOVAX) 2013-08-10 00:00:00 Completed [facility] Pneumococcal Polysaccharide, PPSV23 (PNEUMOVAX) 2013-08-10 00:00:00 Completed [facility] Pneumococcal Polysaccharide, PPSV23 (PNEUMOVAX) 2013-08-10 00:00:00 Completed [facility] Pneumococcal Polysaccharide, PPSV23 (PNEUMOVAX) 2013-08-10 00:00:00 Completed [facility] Pneumococcal Polysaccharide, PPSV23 (PNEUMOVAX) 2013-08-10 00:00:00 Completed [facility] Pneumococcal Polysaccharide, PPSV23 (PNEUMOVAX) 2013-08-10 00:00:00 Completed [facility] Pneumococcal Polysaccharide, PPSV23 (PNEUMOVAX) 2013-08-10 00:00:00 Completed [facility] Pneumococcal Polysaccharide, PPSV23 (PNEUMOVAX) 2013-08-10 00:00:00 Completed [facility] Pneumococcal Polysaccharide, PPSV23 (PNEUMOVAX) 2013-08-10 00:00:00 Completed [facility] Pneumococcal Polysaccharide, PPSV23 (PNEUMOVAX) 2013-08-10 00:00:00 Completed [facility] Pneumococcal Polysaccharide, PPSV23 (PNEUMOVAX) 2013-08-10 00:00:00 Completed [facility] Pneumococcal Polysaccharide, PPSV23 (PNEUMOVAX) 2013-08-10 00:00:00 Completed [facility] Pneumococcal Polysaccharide, PPSV23 (PNEUMOVAX) 2013-08-10 00:00:00 Completed [facility] Pneumococcal Polysaccharide, PPSV23 (PNEUMOVAX) 2013-08-10 00:00:00 Completed [facility] Pneumococcal Polysaccharide, PPSV23 (PNEUMOVAX) 2013-08-10 00:00:00 Completed [facility] Pneumococcal Polysaccharide, PPSV23 (PNEUMOVAX) 2013-08-10 00:00:00 Completed [facility] Pneumococcal Polysaccharide, PPSV23 (PNEUMOVAX) 2013-08-10 00:00:00 Completed [facility] Pneumococcal Polysaccharide, PPSV23 (PNEUMOVAX) 2013-08-10 00:00:00 Completed [facility] Pneumococcal Polysaccharide, PPSV23 (PNEUMOVAX) 2013-08-10 00:00:00 Completed [facility] Pneumococcal Polysaccharide, PPSV23 (PNEUMOVAX) 2013-08-10 00:00:00 Completed [facility] Influenza Virus Vaccine - Whole 2012-07-08 00:00:00 Completed [facility] Influenza Virus Vaccine - Whole 2012-07-08 00:00:00 Completed [facility] TDAP (ADACEL) VACCINE 2008-02-07 00:00:00 Completed [facility] TDAP (ADACEL) VACCINE 2008-02-07 00:00:00 Completed [facility] TDAP (ADACEL) VACCINE 2008-02-07 00:00:00 Completed [facility] TDAP (ADACEL) VACCINE 2008-02-07 00:00:00 Completed [facility] TDAP (ADACEL) VACCINE 2008-02-07 00:00:00 Completed [facility] TDAP (ADACEL) VACCINE 2008-02-07 00:00:00 Completed [facility] TDAP (ADACEL) VACCINE 2008-02-07 00:00:00 Completed [facility] TDAP (ADACEL) VACCINE 2008-02-07 00:00:[address] [facility] TDAP (ADACEL) VACCINE 2008-02-07 00:00:[address] [facility] TDAP (ADACEL) VACCINE 2008-02-07 00:00:[address] [facility] TDAP (ADACEL) VACCINE 2008-02-07 00:00:00 Completed [facility] TDAP (ADACEL) VACCINE 2008-02-07 00:00:[address] [facility] TDAP (ADACEL) VACCINE 2008-02-07 00:00:[address] [facility] TDAP (ADACEL) VACCINE 2008-02-07 00:00:00 Completed [facility] TDAP (ADACEL) VACCINE 2008-02-07 00:00:00 Completed [facility] TDAP (ADACEL) VACCINE 2008-02-07 00:00:00 Completed [facility] TDAP (ADACEL) VACCINE 2008-02-07 00:00:00 Completed [facility] TDAP (ADACEL) VACCINE 2008-02-07 00:00:00 Completed [facility] TDAP (ADACEL) VACCINE 2008-02-07 00:00:00 Completed [facility] TDAP (ADACEL) VACCINE 2008-02-07 00:00:00 Completed [facility] TDAP (ADACEL) VACCINE 2008-02-07 00:00:00 Completed [facility] TDAP (ADACEL) VACCINE 2008-02-07 00:00:00 Completed [facility] TDAP (ADACEL) VACCINE 2008-02-07 00:00:00 Completed [facility] TDAP (ADACEL) VACCINE 2008-02-07 00:00:[address] [facility] TDAP (ADACEL) VACCINE 2008-02-07 00:00:00 Completed [facility] TDAP (ADACEL) VACCINE 2008-02-07 00:00:00 Completed [facility] TDAP (ADACEL) VACCINE 2008-02-07 00:00:00 Completed [facility] TDAP (ADACEL) VACCINE 2008-02-07 00:00:00 Completed [facility] TDAP (ADACEL) VACCINE 2008-02-07 00:00:00 Completed [facility] TDAP (ADACEL) VACCINE 2008-02-07 00:00:00 Completed [facility] TDAP (ADACEL) VACCINE 2008-02-07 00:00:00 Completed [facility] TDAP (ADACEL) VACCINE 2008-02-07 00:00:00 Completed [facility] TDAP (ADACEL) VACCINE 2008-02-07 00:00:00 Completed [facility] TDAP (ADACEL) VACCINE 2008-02-07 00:00:00 Completed [facility] TDAP (ADACEL) VACCINE 2008-02-07 00:00:00 Completed [facility] Pneumococcal Polysaccharide, PPSV23 (PNEUMOVAX) Unknown Completed [facility] TDAP (ADACEL) VACCINE Unknown Completed [facility] Influenza Virus Vaccine Quad IM Multi-dose 6+ MO Unknown Completed [facility] Influenza Virus Vaccine Quad .5 mL IM 6+ MO (FLUZONE/FLULAVAL/F LUARIX) Unknown Completed [facility] SARS-COV-2 COVID-19 MODERNA 12+ YRS VACCINE Unknown Completed [facility] Pneumococcal Polysaccharide, PPSV23 (PNEUMOVAX) Unknown Completed [facility] TDAP (ADACEL) VACCINE Unknown Completed [facility] Influenza Virus Vaccine Quad IM 3+ YRS Unknown Completed [facility] Influenza Virus Vaccine Quad IM Multi-dose 6+ MO Unknown Completed [facility] SARS-COV-2 COVID-19 MODERNA 12+ YRS VACCINE Unknown Completed [facility] Pneumococcal Polysaccharide, PPSV23 (PNEUMOVAX) Unknown Completed [facility] TDAP (ADACEL) VACCINE Unknown Completed [facility] Influenza Virus Vaccine Quad IM 3+ YRS Unknown Completed [facility] Influenza Virus Vaccine Quad IM Multi-dose 6+ MO Unknown Completed [facility] SARS-COV-2 COVID-19 MODERNA 12+ YRS VACCINE Unknown Completed [facility] Pneumococcal Polysaccharide, PPSV23 (PNEUMOVAX) Unknown Completed [facility] TDAP (ADACEL) VACCINE Unknown Completed [facility] Influenza Virus Vaccine Quad IM 3+ YRS Unknown Completed [facility] Influenza Virus Vaccine Quad IM Multi-dose 6+ MO Unknown Completed [facility] SARS-COV-2 COVID-19 MODERNA 12+ YRS VACCINE Unknown Completed [facility] Pneumococcal Polysaccharide, PPSV23 (PNEUMOVAX) Unknown Completed [facility] TDAP (ADACEL) VACCINE Unknown Completed [facility] Influenza Virus Vaccine Quad IM 3+ YRS Unknown Completed [facility] Influenza Virus Vaccine Quad IM Multi-dose 6+ MO Unknown Completed [facility] SARS-COV-2 COVID-19 MODERNA 12+ YRS VACCINE Unknown Completed [facility] Pneumococcal Polysaccharide, PPSV23 (PNEUMOVAX) Unknown Completed [facility] TDAP (ADACEL) VACCINE Unknown Completed [facility] Influenza Virus Vaccine Quad IM 3+ YRS Unknown Completed [facility] Influenza Virus Vaccine Quad IM Multi-dose 6+ MO Unknown Completed [facility] SARS-COV-2 COVID-19 MODERNA 12+ YRS VACCINE Unknown Completed [facility] Pneumococcal Polysaccharide, PPSV23 (PNEUMOVAX) Unknown Completed [facility] TDAP (ADACEL) VACCINE Unknown Completed [facility] Influenza Virus Vaccine Quad IM 3+ YRS Unknown Completed [facility] Influenza Virus Vaccine Quad IM Multi-dose 6+ MO Unknown Completed [facility] SARS-COV-2 COVID-19 MODERNA 12+ YRS VACCINE Unknown Completed [facility] Pneumococcal Polysaccharide, PPSV23 (PNEUMOVAX) Unknown Completed [facility] TDAP (ADACEL) VACCINE Unknown Completed [facility] Influenza Virus Vaccine Quad IM 3+ YRS Unknown Completed [facility] Influenza Virus Vaccine Quad IM Multi-dose 6+ MO Unknown Completed [facility] SARS-COV-2 COVID-19 MODERNA 12+ YRS VACCINE Unknown Completed [facility] Pneumococcal Polysaccharide, PPSV23 (PNEUMOVAX) Unknown Completed [facility] TDAP (ADACEL) VACCINE Unknown Completed [facility] Influenza Virus Vaccine Quad IM 3+ YRS Unknown Completed [facility] Influenza Virus Vaccine Quad IM Multi-dose 6+ MO Unknown Completed [facility] SARS-COV-2 COVID-19 MODERNA 12+ YRS VACCINE Unknown Completed [facility] Pneumococcal Polysaccharide, PPSV23 (PNEUMOVAX) Unknown Completed [facility] TDAP (ADACEL) VACCINE Unknown Completed [facility] Influenza Virus Vaccine Quad IM 3+ YRS Unknown Completed [facility] Pneumococcal Polysaccharide, PPSV23 (PNEUMOVAX) Unknown Completed [facility] TDAP (ADACEL) VACCINE Unknown Completed [facility] Influenza Virus Vaccine Quad IM 3+ YRS Unknown Completed [facility] Influenza Virus Vaccine Quad IM Multi-dose 6+ MO Unknown Completed [facility] SARS-COV-2 COVID-19 MODERNA 12+ YRS VACCINE Unknown Completed [facility] Pneumococcal Polysaccharide, PPSV23 (PNEUMOVAX) Unknown Completed [facility] TDAP (ADACEL) VACCINE Unknown Completed [facility] Influenza Virus Vaccine Quad IM 3+ YRS Unknown Completed [facility] Influenza Virus Vaccine Quad IM Multi-dose 6+ MO Unknown Completed [facility] SARS-COV-2 COVID-19 MODERNA 12+ YRS VACCINE Unknown Completed [facility] Pneumococcal Polysaccharide, PPSV23 (PNEUMOVAX) Unknown Completed [facility] TDAP (ADACEL) VACCINE Unknown Completed [facility] Influenza Virus Vaccine Quad IM 3+ YRS Unknown Completed [facility] Influenza Virus Vaccine Quad IM Multi-dose 6+ MO Unknown Completed [facility] SARS-COV-2 COVID-19 MODERNA 12+ YRS VACCINE Unknown Completed [facility] Pneumococcal Polysaccharide, PPSV23 (PNEUMOVAX) Unknown Completed [facility] TDAP (ADACEL) VACCINE Unknown Completed [facility] Influenza Virus Vaccine Quad IM 3+ YRS Unknown Completed [facility] Influenza Virus Vaccine Quad IM Multi-dose 6+ MO Unknown Completed [facility] SARS-COV-2 COVID-19 MODERNA 12+ YRS VACCINE Unknown Completed [facility] Pneumococcal Polysaccharide, PPSV23 (PNEUMOVAX) Unknown Completed [facility] TDAP (ADACEL) VACCINE Unknown Completed [facility] Influenza Virus Vaccine Quad IM 3+ YRS Unknown Completed [facility] Influenza Virus Vaccine Quad IM Multi-dose 6+ MO Unknown Completed [facility] SARS-COV-2 COVID-19 MODERNA 12+ YRS VACCINE Unknown Completed [facility] Vital Signs Vital Name Observation Time Observation Value Comments S ource Systolic blood pressure 2024-07-20 16:05:00 170 mm[Hg] [facility] Diastolic blood pressure 2024-07-20 16:05:00 74 mm[Hg] [facility] Heart rate 2024-07-20 16:05:00 76 /min [facility] Respiratory rate 2024-07-20 16:05:00 18 /min [facility] Body height 2024-07-20 16:05:[address] [facility] Body weight 2024-07-20 16:05:[address] [facility] BMI 2024-07-20 16:05:00 33.22 kg/m2 [facility] Oxygen saturation in Arterial blood by Pulse oximetry 2024-07-20 16:05:00 96 /min [facility] Systolic blood pressure 2024-07-09 02:13:00 141 mm[Hg] [facility] Diastolic blood pressure 2024-07-09 02:13:00 76 mm[Hg] [facility] Heart rate 2024-07-09 02:13:00 82 /min [facility] Body temperature 2024-07-09 02:13:00 36.61 Su [facility] Respiratory rate 2024-07-09 02:13:00 18 /min [facility] Oxygen saturation in Arterial blood by Pulse oximetry 2024-07-09 02:13:00 95 /min [facility] Body height 2024-07-08 22:57:[address] [facility] Body weight 2024-07-08 22:57:[address] [facility] BMI 2024-07-08 22:57:00 32.79 kg/m2 [facility] Systolic blood pressure 2024-07-07 19:55:00 143 mm[Hg] [facility] Diastolic blood pressure 2024-07-07 19:55:00 65 mm[Hg] [facility] Heart rate 2024-07-07 19:55:00 93 /min [facility] Respiratory rate 2024-07-07 19:55:00 14 /min [facility] Oxygen saturation in Arterial blood by Pulse oximetry 2024-07-07 19:55:00 92 /min [facility] height 2024-05-17 13:10:00 64 [in_i] [facility] 2024-05-17 13:10:00 87.09 kg [facility] bmi 2024-05-17 13:10:00 32.95 kg/m2 [facility] temperature 2024-05-17 13:10:00 97.2 [degF] [facility] respiratory rate 2024-05-17 13:10:00 16 /min [facility] heart rate 2024-05-17 13:10:00 64 /min [facility] blood pressure systolic 2024-05-17 13:10:00 140 mm[Hg] [facility] blood pressure diastolic 2024-05-17 13:10:00 82 mm[Hg] [facility] Systolic blood pressure 2024-04-28 22:40:00 126 mm[Hg] [facility] Diastolic blood pressure 2024-04-28 22:40:00 80 mm[Hg] [facility] Heart rate 2024-04-28 22:40:00 84 /min [facility] Respiratory rate 2024-04-28 22:40:00 14 /min [facility] Oxygen saturation in Arterial blood by Pulse oximetry 2024-04-28 22:40:00 97 /min [facility] Body temperature 2024-04-28 16:00:00 35.94 Su [facility] Body weight 2024-04-28 09:00:[address] [facility] BMI 2024-04-28 09:00:00 32.28 kg/m2 [facility] Body height 2024-04-26 06:02:00 165.1 cm [facility] Systolic blood pressure 2024-04-23 19:53:00 167 mm[Hg] [facility] Diastolic blood pressure 2024-04-23 19:53:00 65 mm[Hg] [facility] Heart rate 2024-04-23 19:53:00 70 /min [facility] Body height 2024-04-23 19:53:00 165.1 cm [facility] Body weight 2024-04-23 19:53:00 88.769 kg [facility] BMI 2024-04-23 19:53:00 32.57 kg/m2 [facility] Oxygen saturation in Arterial blood by Pulse oximetry 2024-04-23 19:53:00 99 /min [facility] Systolic blood pressure 2022-12-18 20:22:00 137 mm[Hg] [facility] Diastolic blood pressure 2022-12-18 20:22:00 80 mm[Hg] [facility] Heart rate 2022-12-18 20:22:00 66 /min [facility] Body temperature 2022-12-18 20:22:00 36.11 Su [facility] Respiratory rate 2022-12-18 20:22:00 17 /min [facility] Body height 2022-12-18 20:22:00 162.6 cm [facility] Body weight 2022-12-18 20:22:[address] [facility] BMI 2022-12-18 20:22:00 34.38 kg/m2 [facility] Oxygen saturation in Arterial blood by Pulse oximetry 2022-12-18 20:22:00 96 /min [facility] Systolic blood pressure 2022-11-08 17:49:00 137 mm[Hg] [facility] Diastolic blood pressure 2022-11-08 17:49:00 76 mm[Hg] [facility] Heart rate 2022-11-08 17:49:00 65 /min [facility] Body temperature 2022-11-08 17:49:00 36.61 Su [facility] Respiratory rate 2022-11-08 17:49:00 19 /min [facility] Oxygen saturation in Arterial blood by Pulse oximetry 2022-11-08 17:49:00 96 /min [facility] Body height 2022-11-08 00:41:00 162.6 cm [facility] Body weight 2022-11-08 00:41:00 88.451 kg [facility] BMI 2022-11-08 00:41:00 33.45 kg/m2 [facility] Systolic blood pressure 2022-11-07 20:23:57 205 mm[Hg] [facility] Diastolic blood pressure 2022-11-07 20:23:57 88 mm[Hg] [facility] Heart rate 2022-11-07 20:23:57 67 /min [facility] Respiratory rate 2022-11-07 20:23:57 18 /min [facility] Oxygen saturation in Arterial blood by Pulse oximetry 2022-11-07 20:23:57 100 /min [facility] Body height 2022-11-07 20:08:[address] [facility] Body weight 2022-11-07 20:08:[address] [facility] BMI 2022-11-07 20:08:56 33.45 kg/m2 [facility] Body temperature 2022-11-07 18:33:00 35.67 Su [facility] Systolic blood pressure 2022-10-03 21:00:00 138 mm[Hg] [facility] Diastolic blood pressure 2022-10-03 21:00:00 58 mm[Hg] [facility] Heart rate 2022-10-03 21:00:00 63 /min [facility] Body temperature 2022-10-03 21:00:00 36.44 Su [facility] Body height 2022-10-03 21:00:[address] [facility] Body weight 2022-10-03 21:00:[address] [facility] BMI 2022-10-03 21:00:00 35.58 kg/m2 [facility] Oxygen saturation in Arterial blood by Pulse oximetry 2022-10-03 21:00:00 94 /min [facility] Systolic blood pressure 2022-09-23 19:43:00 120 mm[Hg] [facility] Diastolic blood pressure 2022-09-23 19:43:00 57 mm[Hg] [facility] Heart rate 2022-09-23 19:43:00 72 /min [facility] Body temperature 2022-09-23 19:43:00 36.67 Su [facility] Body height 2022-09-23 19:43:[address] [facility] Body weight 2022-09-23 19:43:[address] [facility] BMI 2022-09-23 19:43:00 34.76 kg/m2 [facility] Oxygen saturation in Arterial blood by Pulse oximetry 2022-09-23 19:43:00 94 /min [facility] Systolic blood pressure 2022-09-19 17:09:00 158 mm[Hg] [facility] Diastolic blood pressure 2022-09-19 17:09:00 75 mm[Hg] [facility] Heart rate 2022-09-19 17:09:00 62 /min [facility] Body temperature 2022-09-19 17:09:00 36.22 Su [facility] Respiratory rate 2022-09-19 17:09:00 18 /min [facility] Oxygen saturation in Arterial blood by Pulse oximetry 2022-09-19 17:09:00 93 /min [facility] Body weight 2022-09-19 10:01:[address] [facility] BMI 2022-09-19 10:01:00 35.79 kg/m2 [facility] Body height 2022-09-17 09:52:[address] [facility] Systolic blood pressure 2022-03-22 20:25:00 147 mm[Hg] [facility] Diastolic blood pressure 2022-03-22 20:25:00 64 mm[Hg] [facility] Heart rate 2022-03-22 20:25:00 60 /min [facility] Oxygen saturation in Arterial blood by Pulse oximetry 2022-03-22 20:25:00 99 /min [facility] BMI 2022-03-22 20:23:00 35.21 kg/m2 [facility] Body temperature 2022-03-22 20:23:00 36.28 Su [facility] Respiratory rate 2022-03-22 20:23:00 17 /min [facility] Body weight 2022-03-22 20:23:[address] [facility] Systolic blood pressure 2022-01-09 18:15:00 144 mm[Hg] [facility] Diastolic blood pressure 2022-01-09 18:15:00 65 mm[Hg] [facility] Heart rate 2022-01-09 18:11:00 58 /min [facility] Respiratory rate 2022-01-09 18:11:00 18 /min [facility] Body height 2022-01-09 18:11:[address] [facility] Body weight 2022-01-09 18:11:[address] [facility] BMI 2022-01-09 18:11:00 34.38 kg/m2 [facility] Oxygen saturation in Arterial blood by Pulse oximetry 2022-01-09 18:11:00 96 /min [facility] Systolic blood pressure 2024-07-20 16:05:00 170 mm[Hg] [facility] Diastolic blood pressure 2024-07-20 16:05:00 74 mm[Hg] [facility] Heart rate 2024-07-20 16:05:00 76 /min [facility] Respiratory rate 2024-07-20 16:05:00 18 /min [facility] Body height 2024-07-20 16:05:[address] [facility] Body weight 2024-07-20 16:05:[address] [facility] BMI 2024-07-20 16:05:00 33.22 kg/m2 [facility] Oxygen saturation in Arterial blood by Pulse oximetry 2024-07-20 16:05:00 96 /min [facility] Body temperature 2024-07-09 02:13:00 36.61 Su [facility] Procedures Procedure Date / Time Performed Performing Clinician Source POCT GLUCOSE (AUTOMATED) 2024-07-09 01:57:00 Altaf Coley [facility] LIPASE 2024-07-09 00:18:[address] [facility] TROPONIN I 2024-07-09 00:18:[address] [facility] COMP. METABOLIC PANEL (12873) 2024-07-09 00:18:00 Shahram Coley [facility] CBC WITH DIFF 2024-07-09 00:18:00 Sahhram Coley [facility] COMP. METABOLIC PANEL (25846) 2024-07-09 00:18:00 Shahram Coley [facility] XR CHEST 2 VW 2024-07-08 23:37:25 Shahram Coley [facility] MR CERVICAL SPINE WO CONTRAST 2024-07-07 19:58:56 Alan Mcclain [facility] POCT GLUCOSE (AUTOMATED) 2024-04-28 21:08:00 Kenisha Lynn [facility] POCT GLUCOSE (AUTOMATED) 2024-04-28 16:32:00 Kenisha Lynn [facility] POCT GLUCOSE (AUTOMATED) 2024-04-28 12:40:00 Kenisha Lynn [facility] BASIC METABOLIC PANEL (NA, K, CL, CO2, GLUCOSE, BUN, CREATININE, CA) 2024-04-28 08:59:00 Lucy Lynn [facility] POCT GLUCOSE (AUTOMATED) 2024-04-28 01:47:00 Kenisha Lynn [facility] POCT GLUCOSE (AUTOMATED) 2024-04-27 21:42:00 Kenisha Lynn [facility] POCT GLUCOSE (AUTOMATED) 2024-04-27 16:24:00 Kenisha Lynn [facility] TRANSTHORACIC ECHO (TTE) COMPLETE 2024-04-27 15:14:00 Bruce Bates [facility] POCT GLUCOSE (AUTOMATED) 2024-04-27 12:40:00 Kenisha Lynn [facility] MAGNESIUM 2024-04-27 08:49:00 Mitul West [facility] BASIC METABOLIC PANEL (NA, K, CL, CO2, GLUCOSE, BUN, CREATININE, CA) 2024-04-27 08:49:00 Mitul West [facility] CBC WITH DIFF 2024-04-27 08:49:00 [facility]) 2024-04-27 06:51:00 [facility] POCT GLUCOSE (AUTOMATED) 2024-04-27 01:49:00 Kenisha Lynn [facility] POCT GLUCOSE (AUTOMATED) 2024-04-26 20:57:00 Kenisha Lynn [facility] POCT GLUCOSE (AUTOMATED) 2024-04-26 16:23:00 Kenisha Lynn [facility] POCT GLUCOSE (AUTOMATED) 2024-04-26 12:53:00 Kenisha Lynn [facility] MAGNESIUM 2024-04-26 09:01:00 Shira Salgado [facility] BASIC METABOLIC PANEL (NA, K, CL, CO2, GLUCOSE, BUN, CREATININE, CA) 2024-04-26 09:01:00 Kenan [facility] CBC WITH DIFF 2024-04-26 09:01:00 Kenan [facility] CRITICAL CARE 2024-04-26 04:24:[address] [facility] DUPLEX VENOUS LEG LEFT - BY VASCULAR LAB 2024-04-26 02:35:00 Daniele Maharaj [facility] URINALYSIS 2024-04-26 02:32:00 [facility] THROAT CULTURE 2024-04-26 02:20:00 Daniele Maharaj [facility] RAPID STREP SCREEN FOR GROUP A 2024-04-26 02:20:00 Daniele Maharaj [facility] INFLUENZA A/B RSV COVID NAAT 2024-04-26 02:20:00 Daniele Maharaj [facility] LAB ONLY COVID INTERPRETATION 2024-04-26 02:20:00 Daniele Maharaj [facility] LIPASE 2024-04-26 02:16:00 [facility] MAGNESIUM 2024-04-26 02:16:00 Daniele Maharaj [facility] TROPONIN I 2024-04-26 02:16:00 Daniele [facility] COMP. METABOLIC PANEL (69113) 2024-04-26 02:16:00 Daniele Maharaj [facility] CBC WITH DIFF 2024-04-26 02:16:[address] [facility] GLYCOSYLATED HEMOGLOBIN (A1C) 2024-04-26 02:16:00 Kenan [facility] N-TERMINAL PRO-BNP 2024-04-26 02:16:00 Daniele Maharaj [facility] GLYCOSYLATED HEMOGLOBIN (A1C) 2024-04-26 02:16:00 Kenan [facility] HB ECG ROUTINE & RHYTHM STRIP 2024-04-26 02:10:27 Daniele Maharaj [facility] SLEEP STUDY DATA REPORT 2024-04-13 18:24:39 Loni Babb [facility] SLEEP LAB RESULTS 2024-04-13 18:23:53 Srinivasa Babb [facility] SLEEP STUDY 2024-04-09 20:15:37 Sushila Babb [facility] EXTERNAL PROVIDER RECORDS 2023-10-07 06:01:00 Do ctor Unassigned, [place] [facility] AUTHORIZATION FOR RELEASE OF PHI 2023-10-03 06:01:00 Doctor Unassigned, [place] [facility] AUTHORIZATION FOR RELEASE OF PHI 2023-09-30 06:01:00 Doctor Unassigned, [place] [facility] AUTHORIZATION FOR RELEASE OF PHI 2023-09-11 06:01:00 Doctor Unassigned, [place] [facility] SLEEP STUDY DATA REPORT 2023-02-20 05:01:00 Doct or Unassigned, [place] [facility] MEDICAL RELEASE/CLEARANCE FORMS 2023-02-10 05:01:00 Doctor Unassigned, [place] [facility] XR CHEST 1 VW 2022-11-07 23:24:39 [facility]W 2022-11-07 23:24:39 FeleciaKirill phillips [facility] PROCEDURE 2022-11-07 21:50:49 Carlito [facility] ELECTROPHYSIOLOGY PROCEDURE 2022-11-07 21:50:00 Carlito [facility] CATH PROCEDURE LOG 2022-11-07 20:41:05 [facility] 2022-11-07 20:41:05 Carlito [facility] HB ECG ROUTINE & RHYTHM STRIP 2022-11-07 19:06:44 Carlito [facility] ASSIGNMENT OF BENEFITS 2022-11-07 17:53:08 Docto r Unassigned, [place] [facility] POCT GLUCOSE (AUTOMATED) 2022-09-19 17:29:00 Russell Paul [facility] POCT GLUCOSE (AUTOMATED) 2022-09-19 13:40:00 Humberto Russell [facility] POCT GLUCOSE (AUTOMATED) 2022-09-19 01:48:00 Humberto [facility] POCT GLUCOSE (AUTOMATED) 2022-09-18 22:36:00 Humberto Russell [facility] POCT GLUCOSE (AUTOMATED) 2022-09-18 17:20:00 Humberto [facility] POCT GLUCOSE (AUTOMATED) 2022-09-18 13:48:00 Russell Paul [facility] TROPONIN I 2022-09-18 10:37:00 Bruce Bates [facility] BASIC METABOLIC PANEL (NA, K, CL, CO2, GLUCOSE, BUN, CREATININE, CA) 2022-09-18 10:37:00 Francine Hein [facility] LIPID PANEL (38670)(TOTAL CHOLESTEROL, TRIGLYCERIDES, HDL) 2022-09-18 10:37:00 Bruce Bates.HDrew [facility] N-TERMINAL PRO-BNP 2022-09-18 10:37:00 Bruce Bates.HDrew [facility] LIPID PANEL (11920)(TOTAL CHOLESTEROL, TRIGLYCERIDES, HDL) 2022-09-18 10:37:00 Bruce Bates [facility] POCT GLUCOSE (AUTOMATED) 2022-09-18 02:57:00 Russell Paul [facility] POCT GLUCOSE (AUTOMATED) 2022-09-17 22:33:00 Russell Paul [facility] MAGNESIUM 2022-09-17 20:25:00 Russell Paul [facility] BASIC METABOLIC PANEL (NA, K, CL, CO2, GLUCOSE, BUN, CREATININE, CA) 2022-09-17 20:25:00 Russell Paul [facility] TRANSTHORACIC ECHO (TTE) COMPLETE 2022-09-17 19:43:00 Humberto Russell [facility] POCT GLUCOSE (AUTOMATED) 2022-09-17 17:33:00 Humberto Russell [facility] POCT GLUCOSE (AUTOMATED) 2022-09-17 13:43:00 Russell Paul [facility] TROPONIN I 2022-09-17 10:44:00 Shira Salgado [facility] CBC WITH DIFF 2022-09-17 10:44:[address] [facility] URINALYSIS 2022-09-16 22:00:00 Jacki Samuels [facility] XR CHEST 1 VW 2022-09-16 21:37:25 Jacki Samuels [facility] HB ECG ROUTINE & RHYTHM STRIP 2022-09-16 21:23:34 Jacki Samuels [facility] MAGNESIUM 2022-09-16 21:19:00 Jacki Samuels [facility] TROPONIN I 2022-09-16 21:19:00 Jacki Samuels [facility] THYROID STIMULATING HORMONE 2022-09-16 21:19:00 Jacki Razo ms [facility] COMP. METABOLIC PANEL ([id number]) 2022-09-16 21:19:00 Jacki Samuels [facility] CBC WITH DIFF 2022-09-16 21:19:00 Jacki Samuels [facility] GLYCOSYLATED HEMOGLOBIN (A1C) 2022-09-16 21:19:00 Shira Salgado [facility] HB ECG ROUTINE & RHYTHM STRIP 2022-09-16 21:13:59 Jacki Samuels [facility] NOTICE OF PRIVACY PRACTICES 2022-09-16 20:53:33 Doctor Unassigned, [place] [facility] CONSENT/REFUSAL FOR DIAGNOSIS AND TREATMENT 2022-09-16 20:53:06 Doctor Unassigned, [place] [facility] MEDICAL RELEASE/CLEARANCE FORMS 2022-07-10 06:01:00 Doctor Unassigned, [place] [facility] DME/SUPPLY JUSTIFICATION 2022-06-04 05:01:00 Doc tor Unassigned, [place] [facility] DME/SUPPLY JUSTIFICATION 2019-12-19 05:01:00 Doc tor Unassigned, [place] [facility] MICROALBUMIN URINE 2016-09-27 22:51:00 Mick Chaparro [facility] BI SCREENING MAMMOGRAM BILATERAL 2016-02-06 18:44:00 Get Whittington [facility] RECYCLABLE MATERIALS DISTRIBUTOR ORDER/REPORT PROCEDURE 2015-04-21 17:25:00 Get Perez [facility] HCV ANTIBODY 2013-05-25 22:10:00 Zurdo [facility] BI SCREENING MAMMOGRAM BILATERAL 2012-11-30 19:06:00 Reji Barriga [facility] COLONOSCOPY (ENDO) 2009-05-16 14:10:10 Doctor Un assigned, [place] [facility] Encounters Start Date/Time End Date/Time Encounter Type Admission Type Attending Clinicians Care Facility Care Department Encounter ID Source 2024-05-17 13:41:01 Outpatient Bret Lamb [facility] [id number] 2024-04-09 00:00:00 2024-10-16 07:09:32 Orders Only Sushila Babb [facility] [place] ([place]) 1.2.840.114 350.1.13.10 4.2.7.2.686 [id number] [facility] 2024-04-13 00:00:00 2024-10-16 07:08:02 Orders Only Sushila Babb [facility] ([place]) 1.2.840.114 350.1.13.10 4.2.7.2.686 [id number] [facility] 2024-04-13 00:00:00 2024-10-16 07:07:55 Orders Only Sushila Babb [facility] ([place]) 1.2.840.114 350.1.13.10 4.2.7.2.686 [id number] [facility] 2024-05-24 00:00:00 2024-10-16 06:56:13 Orders Only Valencia Brewer Per[facility] 1.2.840.114 350.1.13.10 4.2.7.2.686 [id number] [facility] 2012-11-30 00:00:00 2024-10-16 04:47:53 Orders Only Reji Barriga [facility] ([facility] 1.2.840.114 350.1.13.10 4.2.7.2.686 [id number] [facility] 2024-10-12 00:00:00 2024-10-12 00:00:00 Scanned Documents Doctor Unassigned, [place] 1..840.1 [id number] 3.104.2.7 .3.914780 .8 [id number] [facility] 2024-07-22 00:00:00 2024-07-22 00:00:00 Alan Malave 1.2.840.1 [id number] 3.104.2.7 .3.602797 .[id number] [facility] 2024-07-20 10:00:00 2024-07-20 10:50:14 Outpatient ALAN MEM[facility] [id number] [facility] 2024-07-20 10:00:00 2024-07-20 10:50:14 Office Visit Alan Mcclain 1.2.840.1 [id number] 3.104.2.7 .3.265863 .8 [id number] [facility] 2024-07-19 00:00:00 2024-07-19 00:00:00 Travel 1.2.840.1 [id number] 3.104.2.7 .3.847866 .8 1.2.840.114 350.1.13.10 4.2.7.3.698 [id number] [facility] 2024-07-08 17:12:00 2024-07-08 20:43:00 Emergency X [facility] [id number] [facility] 2024-07-08 17:12:00 2024-07-08 20:43:00 Emergency Shahram Coley [facility] 1.2.840.114 350.1.13.10 4.2.7.2.686 [id number] [facility] 2024-07-07 12:30:03 2024-07-07 23:59:00 Outpatient ALAN [facility] [id number] [facility] 2024-07-07 12:30:03 2024-07-07 23:59:00 Hospital Encounter Alan Mcclain [facility] [place] ([facility] 1.2.840.114 350.1.13.10 4.2.7.2.686 [id number] [facility] 2024-06-03 13:05:59 2024-06-03 23:59:00 Outpatient LILI BROWNING [facility] [id number] [facility] 2024-06-03 13:05:59 2024-06-03 23:59:00 Hospital Encounter Lili Garcias [facility] 1..840.114 350.1.13.10 4.2.7.2.686 [id number] [facility] 2024-05-24 11:40:00 2024-05-24 11:40:00 Outpatient ALAN [facility]ENO [facility] [id number] [facility] 2024-05-24 00:00:00 2024-05-24 00:00:00 (TEL) CLS CLS [id number] [facility] 2024-05-21 00:00:00 2024-05-21 00:00:00 (TEL) CLS CLS [id number] [facility] 2024-05-17 00:00:00 2024-05-17 00:00:00 Office Visit- New Pt.- Level 4 CLS CLS [id number] [facility] 2024-05-17 00:00:00 2024-05-17 00:00:00 (TEL) CLS CLS [id number] [facility] 2024-05-06 20:00:00 2024-05-06 20:00:00 Outpatient LOTTIE PUENTE STRAHIL [facility] [id number] [facility] 2024-04-29 00:00:00 2024-04-29 15:55:43 Transition of Care Niya Smith 1..840.114 350.1.13.10 4.2.7.2.686 [id number] [facility] 2024-04-25 20:44:00 2024-04-28 18:24:00 Inpatient LUCY VERDUZCO [facility] [id number] [facility] 2024-04-25 20:44:00 2024-04-28 18:24:00 Hospital Encounter Daniele Maharaj [facility] 1..840.114 350.1.13.10 4.2.7.2.686 [id number] [facility] 2024-04-23 14:20:00 2024-04-23 15:28:41 Outpatient R ALAN MCCLAIN [facility] [id number] [facility] 2024-04-23 14:20:00 2024-04-23 15:28:41 Office Visit Alan Mcclain [facility] 1..840.114 350.1.13.10 4.2.7.2.686 [id number] [facility] 2024-04-12 20:00:00 2024-04-12 22:30:00 Orthopedic Assistant Visit 1, [facility] Lottie Truong T 1, [facility] 1.840.114 350.1.13.10 4.2.7.2.686 [id number] [facility] 2024-04-12 20:00:00 2024-04-12 20:00:00 Outpatient LOTTIE PUENTE STRAIDVicky [facility] [id number] [facility] 2024-04-09 00:00:00 2024-04-09 10:24:39 Telephone [facility] 1..840.114 350.1.13.10 4.2.7.2.686 [id number] [facility] 2015-11-25 00:00:00 2024-02-17 02:33:24 Mobile Device Encounter Get Whittington [facility] 1.840.114 350.1.13.10 4.2.7.2.686 [id number] [facility] 2023-12-29 00:00:00 2023-12-29 23:59:00 Outpatient ALEXEY LANDA HAIDER [facility] [id number] [facility] 2023-12-29 00:00:00 2023-12-29 23:59:00 [facility] 1.2.840.114 350.1.13.10 4.2.7.2.686 [id number] [facility] 2023-10-29 00:00:00 2023-10-29 00:00:00 Patient Secure Msg Doctor Unassigned, [place] [facility] 1.2.840.114 350.1.13.10 4.2.7.2.686 [id number] [facility] 2023-10-07 00:00:00 2023-10-07 00:00:00 Orders Only Doctor Unassigned, [place] [facility] 1.2.840.114 350.1.13.10 4.2.7.2.686 [id number] [facility] 2023-10-03 00:00:00 2023-10-03 00:00:00 Orders Only Doctor Unassigned, [place] [facility] 1.2.840.114 350.1.13.10 4.2.7.2.686 [id number] [facility] 2023-09-30 00:00:00 2023-09-30 00:00:00 Orders Only Doctor Unassigned, [place] [facility] 1.2.840.114 350.1.13.10 4.2.7.2.686 [id number] [facility] 2023-09-12 00:00:00 2023-09-12 00:00:00 Telephone Bruce Bates [facility] 1.2.840.114 350.1.13.10 4.2.7.2.686 [id number] [facility] 2023-09-11 00:00:00 2023-09-11 00:00:00 Orders Only Doctor Unassigned, [place] [facility] 1.2.840.114 350.1.13.10 4.2.7.2.686 [id number] [facility] 2023-07-03 11:30:00 2023-07-03 11:30:00 Outpatient RICARDO DOMINGUEZ MUHIE [facility] [id number] [facility] 2023-06-30 00:00:00 2023-06-30 23:59:00 Outpatient R JESSIE MENDOZA CHOCKALINGA M [facility] [id number] [facility] 2023-06-30 00:00:00 2023-06-30 23:59:00 Hospital Encounter Jessie Mendoza [facility] 1.2.840.114 350.1.13.10 4.2.7.2.686 [id number] [facility] 2023-06-04 11:00:00 2023-06-04 11:00:00 Outpatient R LOTTIE TRUONG STRAHIL [facility] [id number] [facility] 2023-05-21 20:00:00 2023-05-21 20:00:00 Outpatient R LOTTIE TRUONG STRAIDVicky [facility] [id number] [facility] 2023-04-23 14:30:00 2023-04-23 14:30:00 Outpatient R LOTTIE TRUONG STRAIDVicky [facility] [id number] [facility] 2023-04-21 14:30:00 2023-04-21 14:30:00 Outpatient BRUCE MERCADO [facility] [id number] [facility] 2023-04-17 00:00:00 2023-04-17 00:00:00 Brcue Rondon [facility] 1.2840.114 350.1.13.10 4.2.7.2.686 [id number] [facility] 2023-03-21 11:00:00 2023-03-21 11:00:00 Outpatient R EDUARDO ESTEBAN [facility] [id number] [facility] 2023-02-20 20:00:00 2023-02-20 22:30:00 Orthopedic Assistant Visit 1, [employer] Sleep Lab Bed Lottie Truong [facility] 1.2840.114 350.1.13.10 4.2.7.2.686 [id number] [facility] 2023-02-20 20:00:00 2023-02-20 20:00:00 Outpatient R LOTTIE TRUONG STRAIDVicky [facility] [id number] [facility] 2023-02-20 00:00:00 2023-02-20 00:00:00 Orders Only Doctor Unassigned, [place] [facility] 1.2840.114 350.1.13.10 4.2.7.2.686 [id number] [facility] 2023-02-18 00:00:00 2023-02-18 00:00:[address] [facility] 1.2840.114 350.1.13.10 4.2.7.2.686 [id number] [facility] 2023-02-10 00:00:00 2023-02-10 00:00:00 Telephone Bruce Bates [facility] 1.2840.114 350.1.13.10 4.2.7.2.686 [id number] [facility] 2023-02-10 00:00:00 2023-02-10 00:00:00 Orders Only Doctor Unassigned, [place] [facility] 1.2.840.114 350.1.13.10 4.2.7.2.686 [id number] [facility] 2023-02-06 00:00:00 2023-02-06 00:00:[address] [facility] 1.2.840.114 350.1.13.10 4.2.7.2.686 [id number] [facility] 2023-01-30 00:00:00 2023-01-30 00:00:[address] [facility] BU[facility] 1.2.840.114 350.1.13.10 4.2.7.2.686 [id number] [facility] 2023-01-09 00:00:00 2023-01-09 00:00:00 Refill Bruce Bates [facility] 1.2.840.114 350.1.13.10 4.2.7.2.686 [id number] [facility] 2022-12-30 14:00:00 2022-12-30 14:00:00 Outpatient R BRUCE BATES [facility] [id number] [facility] 2022-12-26 13:32:41 2022-12-26 23:59:00 Outpatient R EDUARDO ESTEBAN [facility] [id number] [facility] 2022-12-23 14:00:00 2022-12-23 14:00:00 Outpatient R BRUCE BATES [facility] [id number] [facility] 2022-12-18 15:30:00 2022-12-18 16:00:00 Office Visit Lottie Truong [facility] NAL BUILDING 1.2.840.114 350.1.13.10 4.2.7.2.686 [id number] [facility] 2022-12-18 15:30:00 2022-12-18 15:30:00 Outpatient R LOTTIE TRUONG STRAIDVicky [facility] [id number] [facility] 2022-11-28 14:19:43 2022-11-28 23:59:00 Outpatient R KIRILL ALVARADO [facility] [id number] [facility] 2022-11-07 11:53:00 2022-11-08 19:04:00 Outpatient R ORLANDO EDWARD [facility] [id number] [facility] 2022-11-07 11:53:00 2022-11-08 19:04:00 Hospital Encounter Eduardo Esteban Sameer Malik, Faiza [facility] 1.2.840.114 350.1.13.10 4.2.7.2.686 [id number] [facility] 2022-11-07 13:45:00 2022-11-07 15:15:00 Surgery Carlito [facility] ([facility] 1.2.840.114 350.1.13.10 4.2.7.2.686 [id number] [facility] 2022-11-07 00:00:00 2022-11-07 00:00:00 Orders Only Doctor Unassigned, [place] [facility] 1.2.840.114 350.1.13.10 4.2.7.2.686 [id number] [facility] 2022-11-06 14:30:00 2022-11-06 14:30:00 Outpatient R LOTTIE TRUONG STRAIDVicky [facility] [id number] [facility] 2022-11-05 12:45:00 2022-11-05 13:00:00 Orthopedic Assistant Visit Pob, Adc Lab Main Carlito [facility] BUILDING 1.2.840.114 350.1.13.10 4.2.7.2.686 [id number] [facility] 2022-11-05 12:45:00 2022-11-05 12:45:00 Outpatient R CARLITO [facility] [id number] [facility] 2022-10-24 00:00:00 2022-10-24 00:00:00 Telephone Carlito [facility] MEDICAL OFFICE BUILDING 1.2.840.114 350.1.13.10 4.2.7.2.686 [id number] [facility] 2022-10-03 15:00:00 2022-10-03 15:52:05 Outpatient R CARLITO [facility] [id number] [facility] 2022-10-03 15:00:00 2022-10-03 15:52:[address] [facility] 1.2.840.114 350.1.13.10 4.2.7.2.686 [id number] [facility] 2022-10-01 00:00:00 2022-10-01 00:00:00 Telephone Brian George [facility] 1.2.840.114 350.1.13.10 4.2.7.2.686 [id number] [facility] 2022-10-01 00:00:00 2022-10-01 00:00:00 Telephone Carlito [facility] BUILDING 1.2.840.114 350.1.13.10 4.2.7.2.686 [id number] [facility] 2022-10-01 00:00:00 2022-10-01 00:00:00 Telephone Bruce Bates [facility] 1.2.840.114 350.1.13.10 4.2.7.2.686 [id number] [facility] 2022-09-29 00:00:00 2022-09-29 00:00:00 Telephone Cruz [facility] 1.2840.114 350.1.13.10 4.2.7.2.686 [id number] [facility] 2022-09-29 00:00:00 2022-09-29 00:00:00 Telephone Bruce Bates [facility] 1.2.840.114 350.1.13.10 4.2.7.2.686 [id number] [facility] 2022-09-23 13:35:42 2022-09-23 23:59:00 Outpatient R BRUCE BATES [facility] [id number] [facility] 2022-09-23 13:30:00 2022-09-23 14:15:59 Office Visit Bruce Bates [facility] 1.2.840.114 350.1.13.10 4.2.7.2.686 [id number] [facility] 2022-09-20 00:00:00 2022-09-20 00:00:00 Transition of Care Niranjan Fisher 1.2.840.114 350.1.13.10 4.2.7.2.686 [id number] [facility] 2022-09-16 15:07:00 2022-09-19 15:00:00 Inpatient LUCY VERDUZCO [facility] [id number] [facility] 2022-09-16 15:07:00 2022-09-19 15:00:00 Hospital Encounter Jacki Samuels, Lucy Reid [facility] 1..114 350.1.13.10 4.2.7.2.686 [id number] [facility] 2022-08-07 14:30:00 2022-08-07 14:30:00 Outpatient R BRUCE BATES [facility] [id number] [facility] 2022-07-12 13:00:00 2022-07-12 13:00:00 Outpatient BRUCE MERCADO [facility] [id number] [facility] 2022-07-10 00:00:00 2022-07-10 00:00:00 Orders Only Doctor Unassigned, [place] [facility] 1..114 350.1.13.10 4.2.7.2.686 [id number] [facility] 2022-07-09 00:00:00 2022-07-09 00:00:00 Telephone Bruce Bates [facility] 1..114 350.1.13.10 4.2.7.2.686 [id number] [facility] 2022-07-08 00:00:00 2022-07-08 00:00:00 Refill Bruce Bates [facility] 1.0.114 350.1.13.10 4.2.7.2.686 [id number] [facility] 2022-06-12 00:00:00 2022-06-12 00:00:00 Tele[address] L[address] Truong [facility] 1..114 350.1.13.10 4.2.7.2.686 [id number] [facility] 2022-06-04 00:00:00 2022-06-04 00:00:[address] [facility] BUILDING 1.2.840.114 350.1.13.10 4.2.7.2.686 [id number] [facility] 2022-06-04 00:00:00 2022-06-04 00:00:00 Orders Only Doctor Unassigned, [place] [facility] 1.2.840.114 350.1.13.10 4.2.7.2.686 [id number] [facility] 2022-03-22 15:20:00 2022-03-22 15:50:19 Outpatient R EDUARDO ESTEBAN [facility] [id number] [facility] 2022-03-22 15:20:00 2022-03-22 15:50:19 Office Visit Eduardo Esteban [facility] BUILDING 1.2.840.114 350.1.13.10 4.2.7.2.686 [id number] [facility] 2022-03-22 15:20:00 2022-03-22 15:50:19 Outpatient R EDUARDO ESTEBAN [facility] [id number] [facility] 2022-03-22 10:20:00 2022-03-22 10:20:00 Outpatient R EDUARDO ESTEBAN [facility] [id number] [facility] 2022-03-18 00:00:00 2022-03-18 00:00:[address] [facility] BUILDING 1.2.840.114 350.1.13.10 4.2.7.2.686 [id number] [facility] 2022-03-15 08:20:00 2022-03-15 08:20:00 Outpatient R EDUARDO ESTEBAN [facility] [id number] [facility] 2022-01-24 00:00:00 2022-01-24 00:00:[address] [facility] BUILDING 1.2.840.114 350.1.13.10 4.2.7.2.686 [id number] [facility] 2022-01-10 00:00:00 2022-01-10 00:00:[address] [facility] BUILDING 1.2.840.114 350.1.13.10 4.2.7.2.686 [id number] [facility] 2022-01-09 13:45:00 2022-01-09 14:00:00 Orthopedic Assistant Visit 2, Adc Lab Bruce Bates [facility] 1.2.840.114 350.1.13.10 4.2.7.2.686 [id number] [facility] 2022-01-09 13:00:00 2022-01-09 13:31:34 Outpatient R BRUCE BATES [facility] [id number] [facility] 2022-01-09 13:00:00 2022-01-09 13:31:34 Outpatient R BRUCE BATES [facility] [id number] [facility] 2022-01-09 13:00:00 2022-01-09 13:31:34 Office Visit Bruce Bates [facility] 1.2.840.114 350.1.13.10 4.2.7.2.686 [id number] [facility] 2022-01-04 10:40:00 2022-01-04 10:40:00 [id number] [facility] 2022-01-04 10:40:00 2022-01-04 10:40:00 Outpatient R EDUARDO ESTEBAN [facility] [id number] [facility] 2021-11-30 00:00:00 2021-11-30 00:00:00 Orders Only Doctor Unassigned, [place] [facility] 1.2.840.114 350.1.13.10 4.2.7.2.686 [id number] [facility] 2021-11-21 14:00:00 2021-11-21 14:20:00 Office Visit Lottie Truong [facility] BUILDING 1.2.840.114 350.1.13.10 4.2.7.2.686 [id number] [facility] 2021-11-21 14:00:00 2021-11-21 14:00:00 Outpatient R MARTIN TRUONGL HARMEET, STRAHIL [facility] [id number] [facility] 2021-11-21 00:00:00 2021-11-21 00:00:00 Orders Only Doctor Unassigned, [place] [facility] 1.2.840.114 350.1.13.10 4.2.7.2.686 [id number] [facility] 2021-11-14 11:20:00 2021-11-14 11:40:00 Office Visit Lottie Truong [facility] BUILDING 1.2.840.114 350.1.13.10 4.2.7.2.686 [id number] [facility] 2021-11-14 11:20:00 2021-11-14 11:20:00 Outpatient R MARTIN TRUONGL HARMEET, STRAHIL [facility] [id number] [facility] 2021-11-14 11:20:00 2021-11-14 11:20:00 Outpatient R ATANASOV, LOTTIE NOLASCO [facility] [id number] [facility] 2021-11-08 09:30:00 2021-11-08 10:03:08 Outpatient R BRUCE BATES [facility] [id number] [facility] 2021-11-08 09:30:00 2021-11-08 10:03:08 Office Visit Bruce Bates [facility] 1.840.114 350.1.13.10 4.2.7.2.686 [id number] [facility] 2021-11-08 09:30:00 2021-11-08 10:03:08 Outpatient R BRUCE BATES [facility] [id number] [facility] 2021-11-08 09:30:00 2021-11-08 09:30:00 Outpatient R BRUCE BATES [facility] [id number] [facility] 2021-11-07 08:37:56 2021-11-07 23:59:00 Outpatient R CHATO KNOX [facility] [id number] [facility] 2021-11-07 08:37:56 2021-11-07 23:59:00 Hospital Encounter Chato Knox [facility] 1..840.114 350.1.13.10 4.2.7.2.686 [id number] [facility] 2021-11-07 08:37:56 2021-11-07 23:59:00 Outpatient R CHATO KNOX [facility] RAD [id number] [facility] 2021-11-01 00:00:00 2021-11-01 00:00:00 Patient Secure Msg Doctor Unassigned, [place] [facility] 1..840.114 350.1.13.10 4.2.7.2.686 [id number] [facility] 2021-10-29 00:00:00 2021-10-29 00:00:00 Orders Only Doctor Unassigned, [place] [facility] 1.284.114 350.1.13.10 4.2.7.2.686 [id number] [facility] 2021-10-25 10:32:00 2021-10-26 15:28:00 Outpatient R IGNACIA CRUZ [facility] [id number] [facility] 2021-10-25 07:00:00 2021-10-25 07:00:00 Outpatient R EDUARDO ESTEBAN [facility] [id number] [facility] 2021-10-23 19:30:00 2021-10-23 22:00:00 Orthopedic Assistant Visit 1, [employer] Sleep Lab Bed Lottie Truong [facility] 1.84.114 350.1.13.10 4.2.7.2.686 [id number] [facility] 2021-10-23 19:30:00 2021-10-23 19:30:00 Outpatient R LOTTIE TRUONG STRAHIL [facility] [id number] [facility] 2021-10-23 13:15:00 2021-10-23 13:30:00 Laboratory Only Only, [employer] Test Eduardo Esteban [facility] 1.84.114 350.1.13.10 4.2.7.2.686 [id number] [facility] 2021-10-23 00:00:00 2021-10-23 00:00:00 Orders Only Lottie Truong [facility] 1.284.114 350.1.13.10 4.2.7.2.686 [id number] [facility] 2021-10-22 10:08:26 2021-10-22 23:59:00 [id number] [facility] 2021-10-22 10:08:26 2021-10-22 23:59:00 Hospital Encounter [facility] 1.2.840.114 350.1.13.10 4.2.7.2.686 [id number] [facility] 2021-10-17 00:00:00 2021-10-17 00:00:00 Telephone Alan Harding [facility] 1.2.840.114 350.1.13.10 4.2.7.2.686 [id number] [facility] 2021-09-29 19:30:00 2021-09-29 19:30:00 Outpatient R LOTTIE TRUONG STRAIDVicky [facility] [id number] [facility] 2021-09-27 10:00:00 2021-09-27 10:00:00 Outpatient R [facility] [id number] [facility] 2021-09-25 09:30:00 2021-09-25 23:59:00 Hospital Encounter [facility] 1.2.840.114 350.1.13.10 4.2.7.2.686 [id number] [facility] 2021-09-25 09:00:00 2021-09-25 09:00:00 Hospital Encounter [facility] 1.2.840.114 350.1.13.10 4.2.7.2.686 [id number] [facility] 2021-09-25 00:00:00 2021-09-25 00:00:00 [facility] [id number] [facility] 2021-09-24 00:00:00 2021-09-24 00:00:00 Telephone Clint Carrasquillo [facility] 1.2.840.114 350.1.13.10 4.2.7.2.686 [id number] [facility] 2021-09-21 00:00:00 2021-09-21 00:00:00 Telephone [facility] 1.2.840.114 350.1.13.10 4.2.7.2.686 [id number] [facility] 2021-09-19 00:00:00 2021-09-19 00:00:00 Telephone [facility] 1.2.840.114 350.1.13.10 4.2.7.2.686 [id number] [facility] 2021-09-19 00:00:00 2021-09-19 00:00:00 [facility] 1.2.840.114 350.1.13.10 4.2.7.2.686 [id number] [facility] 2021-09-18 00:00:00 2021-09-18 00:00:00 Telephone [facility] 1.2.840.114 350.1.13.10 4.2.7.2.686 [id number] [facility] 2021-09-06 08:00:00 2021-09-06 08:00:00 Outpatient R EDUARDO ESTEBAN [facility] [id number] [facility] 2021-08-22 10:40:00 2021-08-22 11:03:10 Outpatient R LOTTIE TRUONG STRAHIL [facility] [id number] [facility] 2021-08-22 10:40:00 2021-08-22 11:03:10 Office Visit Lottie Truong [facility] 1.2.840.114 350.1.13.10 4.2.7.2.686 [id number] [facility] 2021-08-22 00:00:00 2021-08-22 00:00:[address] [facility] BUILDING 1.2.840.114 350.1.13.10 4.2.7.2.686 [id number] [facility] 2021-08-15 15:20:00 2021-08-15 15:40:00 Office Visit Lottie Truong [facility] 1.2.840.114 350.1.13.10 4.2.7.2.686 [id number] [facility] 2021-08-15 15:20:00 2021-08-15 15:20:00 Outpatient R LOTTIE TRUONG STRAHIL [facility] [id number] [facility] 2021-08-07 00:00:00 2021-08-07 00:00:00 Telephone Carlito On license of [facility] 1.2.840.114 350.1.13.10 4.2.7.2.686 [id number] [facility] 2021-07-31 08:47:17 2021-07-31 09:53:27 Office Visit Eduardo Esteban [facility] 1.2.840.114 350.1.13.10 4.2.7.2.686 [id number] [facility] 2021-07-31 08:40:00 2021-07-31 09:53:27 [facility] [id number] [facility] 2021-07-31 08:40:00 2021-07-31 09:53:27 Outpatient R CARLITO [facility] [id number] [facility] 2021-07-31 08:40:00 2021-07-31 09:53:27 Outpatient Chris EDUARDO ESTEBAN [facility] [id number] [facility] 2021-07-30 09:03:56 2021-07-30 09:49:07 Office Visit Bruce [facility] 1.2.840.114 350.1.13.10 4.2.7.2.686 [id number] [facility] 2021-07-30 09:00:00 2021-07-30 09:49:07 Outpatient BRUCE MERCADO [facility] [id number] [facility] 2021-07-30 09:00:00 2021-07-30 09:00:00 Outpatient BRUCE MERCADO [facility] [id number] [facility] 2021-07-30 00:00:00 2021-07-30 00:00:00 Transition of Care Luis Niyaraquel [facility] 1..840.114 350.1.13.10 4.2.7.2.686 [id number] [facility] 2021-07-21 15:01:00 2021-07-26 17:17:00 Inpatient RUSSELL MONK [facility] [id number] [facility] 2021-07-21 15:01:00 2021-07-26 17:17:00 Hospital Encounter Jacki Samuels Yaman [facility] 1..840.114 350.1.13.10 4.2.7.2.686 [id number] [facility] 2021-07-18 09:30:00 2021-07-18 10:51:09 Outpatient ALBINA SEWELL [facility] [id number] [facility] 2021-07-18 09:30:00 2021-07-18 10:51:09 Outpatient ALBINA SEWELL [facility] [id number] [facility] 2021-07-18 09:25:01 2021-07-18 10:51:09 Office Visit Alan Harding, [facility] 1.2.840.114 350.1.13.10 4.2.7.2.686 [id number] [facility] 2021-07-10 00:00:00 2021-07-10 00:00:00 Telephone Bello Bruce KangDrew [facility] 1.2.840.114 350.1.13.10 4.2.7.2.686 [id number] [facility] 2021-07-02 00:00:00 2021-07-02 00:00:00 Telephone BelloBruceDrew [facility] 1.2.840.114 350.1.13.10 4.2.7.2.686 [id number] [facility] 2021-06-21 08:14:54 2021-06-21 23:59:00 Hospital Encounter Bruce Bates [facility] 1.2.840.114 350.1.13.10 4.2.7.2.686 [id number] [facility] 2021-06-21 08:14:18 2021-06-21 23:59:00 Hospital Encounter Bruce Bates [facility] 1.2.840.114 350.1.13.10 4.2.7.2.686 [id number] [facility] 2021-06-21 08:14:06 2021-06-21 23:59:00 Hospital Encounter Bruce Bates [facility] 1.2.840.114 350.1.13.10 4.2.7.2.686 [id number] [facility] 2021-06-21 08:13:21 2021-06-21 08:13:21 Hospital Encounter Bruce BatesMirzaDrew [facility] 1.2.840.114 350.1.13.10 4.2.7.2.686 [id number] [facility] 2021-06-21 08:13:10 2021-06-21 08:13:10 Hospital Encounter Bruce Bates [facility] 1.2.840.114 350.1.13.10 4.2.7.2.686 [id number] [facility] 2021-06-21 00:00:00 2021-06-21 00:00:00 Outpatient [facility] [id number] [facility] 2021-06-20 00:00:00 2021-06-20 00:00:00 Telephone Bruce BatesMirzaDrew [facility] 1.2840.114 350.1.13.10 4.2.7.2.686 [id number] [facility] 2021-06-20 00:00:00 2021-06-20 00:00:00 Telephone Kellie Barfield [facility] 1.2840.114 350.1.13.10 4.2.7.2.686 [id number] [facility] 2021-06-19 00:00:00 2021-06-19 00:00:00 Orders Only Doctor Unassigned, [place] [facility] 1.2.840.114 350.1.13.10 4.2.7.2.686 [id number] [id number] [facility] 2021-06-18 12:54:16 2021-06-18 23:59:00 Hospital Encounter Bruce Bates JhonDrewDrew [facility] 1.2.840.114 350.1.13.10 4.2.7.2.686 [id number] [facility] 2021-06-18 13:00:00 2021-06-18 13:00:00 Outpatient R BRUCE BATES [facility] [id number] [facility] 2021-06-13 00:00:00 2021-06-13 00:00:00 Orders Only Doctor Unassigned, [place] [facility] 1.2840.114 350.1.13.10 4.2.7.2.686 [id number] [id number] [facility] 2021-06-12 16:07:13 2021-06-12 23:59:00 Hospital Encounter Bruce Bates [facility] 1.2.840.114 350.1.13.10 4.2.7.2.686 [id number] [facility] 2021-06-12 10:15:52 2021-06-12 11:10:12 Office Visit Bruce Bates [facility] 1.2.840.114 350.1.13.10 4.2.7.2.686 [id number] [facility] 2021-06-12 10:00:00 2021-06-12 10:00:00 Outpatient R BRUCE BATES [facility] [id number] [facility] 2021-06-12 00:00:00 2021-06-12 00:00:00 Orders Only Doctor Unassigned, [place] [facility] 1.2840.114 350.1.13.10 4.2.7.2.686 [id number] [facility] 2021-01-04 00:00:00 2021-01-04 00:00:00 Refill Bruce Bates [facility] 1.2.840.114 350.1.13.10 4.2.7.2.686 [id number] [facility] 2020-12-28 00:00:00 2020-12-28 00:00:00 Refill Bruce Bates [facility] 1.2.840.114 350.1.13.10 4.2.7.2.686 [id number] [facility] 2020-11-04 00:00:00 2020-11-04 00:00:00 Orders Only Doctor Unassigned, [place] [facility] 1.2.840.114 350.1.13.10 4.2.7.2.686 [id number] [facility] 2020-09-15 00:00:00 2020-09-15 00:00:00 Telephone Bruce Bates [facility] 1.2.840.114 350.1.13.10 4.2.7.2.686 [id number] [facility] 2020-06-12 14:47:16 2020-06-27 13:33:27 Office Visit Bruce Bates [facility] 1.2.840.114 350.1.13.10 4.2.7.2.686 [id number] [facility] 2020-06-12 14:47:16 2020-06-27 13:33:27 Office Visit Bruce Bates [facility] 1.2.840.114 350.1.13.10 4.2.7.2.686 [id number] 2020-06-27 00:00:00 2020-06-27 00:00:00 Orders Only Doctor Unassigned, [place] [facility] 1.2.840.114 350.1.13.10 4.2.7.2.686 [id number] [id number] [facility] 2020-06-27 00:00:00 2020-06-27 00:00:00 [facility] 1.2840.114 350.1.13.10 4.2.7.2.686 [id number] [facility] 2020-06-27 00:00:00 2020-06-27 00:00:00 Telephone Bruce Bates [facility] Building 1.840.114 350.1.13.10 4.2.7.2.686 [id number] 2020-06-21 16:00:00 2020-06-21 16:00:00 Outpatient R [facility] [id number] [facility] 2020-06-16 16:00:00 2020-06-16 16:00:00 Outpatient R [facility] [id number] [facility] 2020-06-12 14:30:00 2020-06-12 14:30:00 Outpatient R BRUCE BATES [facility] [id number] [facility] 2020-06-12 00:00:00 2020-06-12 00:00:00 Orders Only Doctor Unassigned, [place] [facility] 1.84.114 350.1.13.10 4.2.7.2.686 [id number] [facility] 2020-05-26 09:37:13 2020-05-26 11:46:55 Office Visit Alan Mcclain [facility] 1.284.114 350.1.13.10 4.2.7.2.686 [id number] [facility] 2020-05-26 09:20:00 2020-05-26 09:20:00 Outpatient ALAN MEMBRENO HOWARD [facility] [id number] [facility] 2020-05-22 09:00:00 2020-05-22 09:00:00 Outpatient Chris VASQUEZOLIVIER HOLLIEDREA [facility] [id number] [facility] 2020-05-12 00:00:00 2020-05-12 00:00:[address]cl[address] [facility] Building 1.840.114 350.1.13.10 4.2.7.2.686 [id number] [facility] 2020-04-28 15:30:00 2020-04-28 15:30:00 Outpatient Chris VASQUEZBRUCE AGUAYO [facility] [id number] [facility] 2020-04-18 10:49:27 2020-04-18 23:59:00 Hospital Encounter Alan Mcclain [facility] 1.840.114 350..13.10 4.2.7.2.686 [id number] [facility] 2020-04-18 00:00:00 2020-04-18 00:00:00 Outpatient Chris SARAHI ALAN MULLIGANEALNA [facility] [id number] [facility] 2020-04-11 13:24:22 2020-04-11 14:07:49 Office Visit Alan Mcclain [facility] 1.840.114 350..13.10 4.2.7.2.686 [id number] [facility] 2020-04-11 13:40:00 2020-04-11 13:40:00 Outpatient Chris MCCLAIN ALAN MULLIGANALAN [facility] [id number] [facility] 2020-04-11 00:00:00 2020-04-11 00:00:00 Orders Only Doctor Unassigned, [place] [facility] 1.840.114 350..13.10 4.2.7.2.686 [id number] [facility] 2020-03-09 00:00:00 2020-03-09 00:00:00 Orders Only Doctor Unassigned, [place] [facility] 1.2840.114 350.1.13.10 4.2.7.2.686 [id number] [facility] 2020-01-05 11:30:00 2020-01-05 11:30:00 Outpatient R LOTTIE TRUONG STRAHIL [facility] [id number] [facility] 2020-01-05 09:17:42 2020-01-05 09:47:42 Telemedici ne Visit Lottie Truong [facility] 1.2.840.114 350.1.13.10 4.2.7.2.686 [id number] [facility] 2019-12-19 00:00:00 2019-12-19 00:00:00 Orders Only Doctor Unassigned, [place] [facility] 1.2840.114 350.1.13.10 4.2.7.2.686 [id number] [facility] 2019-04-22 15:39:26 2019-04-22 16:24:54 Office Visit Bruce Bates [facility] Building 1.2.840.114 350.1.13.10 4.2.7.2.686 [id number] [facility] 2019-04-22 00:00:00 2019-04-22 00:00:00 Orders Only Doctor Unassigned, [place] [facility] 1.2840.114 350.1.13.10 4.2.7.2.686 [id number] [facility] 2019-04-07 10:03:10 2019-04-07 10:33:10 Office Visit Lottie Truong [facility] Building 1.2840.114 350.1.13.10 4.2.7.2.686 [id number] [facility] 2019-04-07 00:00:00 2019-04-07 00:00:00 Orders Only Doctor Unassigned, [place] [facility] 1.2.840.114 350.1.13.10 4.2.7.2.686 [id number] [facility] Results Test Description Test Time Test Comments Results Result Co [facility] [id number] 01:02:43* Test Item Value Reference Range Interpretation Comme nts TROPONIN I (test code = 6335584143) <=0.034 ZAK (test code = ZAK) Reference [...] of biotin. Lab Interpretation (test code = 57162-3) Normal [facility]OL[facility] PANEL (51570)2024-07-09 00:52:37* Test Item Value Reference Range Interpretation Comme nts NA (test code = 3747339735) 134 mmol/L 135-145 L K (test code = 2953130801) 4.0 mmol/L 3.5-5.0 CL (test code = 5673900447) 101 mmol/L 98-108 CO2 TOTAL (test code = 9714603791) 25 mmol/L 23-31 AGAP (test code = 7543190635) 8 2-16 BUN (test code = 4958348207) 22 mg/dL 7-23 GLUCOSE (test code = 2727091414) 278 mg/dL 70-110 H CREATININE (test code = 2160-0) 0.90 mg/dL 0.50-1.04 TOTAL BILI (test code = 0731871607) 1.0 mg/dL 0.1-1.1 CALCIUM (test code = 3655979325) 9.5 mg/dL 8.6-10.6 T PROTEIN (test code = 7134280790) 7.1 g/dL 6.3-8.2 ALBUMIN (test code = 7510421952) 4.2 g/dL 3.5-5.0 ALK PHOS (test code = 7329469878) 74 U/L 34-122 ALTv (test code = 1742-6) 22 U/L 5-35 AST(SGOT) (test code = 5744673803) 25 U/L 13-40 eGFR (test code = 91645-6) 69.8 mL/min/1.73m2 CKD-EPI eGFR (2020). Assuming creatinine has been stable day-to-day for at least three months, the eGFR indicates Category G2 (60 - 89 mL/min/1.73 m2) Lab Interpretation (test code = 13594-0) [facility] 00:52:01* Test Item Value Reference Range Interpretation Comme nts LIPASE (test code = 0231201878) 107 U/L 0-220 Lab Interpretation (test cod e = 12952-3) Normal [facility] CHEST 2 [id number] 00:42:21CHEST X-RAY PA & LATERAL 07/08/2024 6:41 [...] thevisualized skeleton. Degenerative change of the thoracic spine.[facility] WITH [id number] 00:33:38* Test Item Value Reference Range Interpretation [...] 33.3 g/dL 31.6-35.1 RDW-SD (test code = 72823-5) 43.9 fL 39.0-49.9 RDW-CV (test code = 788-0) 13.2 % 12.0-15.5 PLT (test code = 777-3) 249 166-358 MPV (test code = 80985-0) 9.5 fL 9.5-12.9 NRBC/100 WBC (test code = 2064267106) 0.0 0.0-10.0 NRBC x10^3 (test code = 3456003109) See_Comment [Automated me ssage] The system which generated this result transmitted reference range: 10*3/?L. The reference range was not used to interpret this result as normal/abnormal. GRAN MAT (NEUT) % (test code = 770-8) 64.9 % IMM GRAN % (test code = 0896614863) 0.30 % LYMPH % (test code = 736-9) 25.1 % MONO % (test code = 5905-5) 7.8 % EOS % (test code = 713-8) 1.2 % BASO % (test code = 706-2) 0.7 % GRAN MAT x10^3(ANC) (test code = 0202734070) 6.16 10*3/uL 1.88-7.09 IMM GRAN x10^3 (test code = 1615858838) 0.03 10*3/uL 0.00-0.06 LYMPH x10^3 (test code = 731-0) 2.38 10*3/uL 1.32-3.29 MONO x10^3 (test code = 742-7) 0.74 10*3/uL 0.33-0.92 EOS x10^3 (test code = 711-2) 0.11 10*3/uL 0.03-0.39 BASO x10^3 (test code = 704-7) 0.07 10*3/uL 0.01-0.07 [facility] CERVICAL SPINE WO [id number] 20:42:35EXAM: MR CERVICAL SPINE WO CONTRAST HISTORY: [...] that results in mild to moderate spinal canalstenosis.[facility])2024-04-28 21:09:50* Test Item Value Reference Range Interpretation Comme nts POCT GLU (test code = 8276645313) 130 mg/dL 70-110 H Lab Interpretation (test cod e = 18339-2) Abnormal [facility] GLUCOSE (AUTOMATED)2024-04-28 16:32:51* Test Item Value Reference Range Interpretation Comme [facility] POCT GLU (test code = 5900102585) 138 mg/dL 70-110 H Lab Interpretation (test cod e = 87831-3) Abnormal [facility] GLUCOSE (AUTOMATED)2024-04-28 12:40:49* Test Item Value Reference Range Interpretation Comme [facility] POCT GLU (test code = 1522268003) 98 mg/dL 70-110 Lab Interpretation (test cod e = 91440-7) Normal [facility] GLUCOSE (AUTOMATED)2024-04-28 01:47:46* Test Item Value Reference Range Interpretation Comme [facility] POCT GLU (test code = 7282794207) 164 mg/dL 70-110 H Lab Interpretation (test cod e = 69144-6) [facility]normal [facility]an[facility] (TTE)2024-04-27 22:34:33* Test Item Value Reference Range Interpretation Comme [facility] Height (test code = 1500467200) 65 in Weight (test code = 3433973492) 192 lbs Systolic BP (test code = 4035660370) 112 mmHg Diastolic BP (test code = 5166195071) 70 mmHg Heart Rate (test code = 7018350348) 66 bpm LV GLS Endo Peak A2C () (test code = 3242527399) -25.00 % LV GLS Endo Peak A3C () (test code = 9533634191) -22.50 % LV GLS Endo Peak A4C () (test code = 1625010802) -23.20 % LV GLS Endo Peak Avg () (test code = 1218976701) -23.60 % BSA (test code = 3033927958) 1.94 m2 Ao root diam (test code = 9360148395) 3.20 cm Aortic root (test code = 4334207390) 3.2 cm Ao root annulus (test code = 3804987928) 3.2 cm LVOT diameter (test code = 8042605945) 1.80 cm LVOT area (test code = 5048404878) 2.60 cm2 LA size (test code = 4673549356) 4.8 cm LVIDD (test code = 2724182678) 4.20 cm Left Ventricular End Diastolic Volume by Teichholz Method (test code = 3145288) 80.3 mL IVS (test code = 6811772751) 1.31 cm Interventricular Septum Diastolic Thickness by 2D (test code = 3894344) 1.31 cm LVPWD (test code = 2323065505) 1.28 cm PW (test code = 8861913336) 1.28 cm 0.6-1.1 EF(Teich) (test code = 9799122491) 65.30 % LVIDS (test code = 0691420549) 2.70 cm Left Ventricular End Systolic Volume by Teichholz Method (test code = 9685670) 27.8 mL FS (test code = 5323122719) 36 % EF - 2D (test code = 31838544) 65.30 % LAV(MOD-sp4) (test code = 4467775490) 44.20 mL E wave decelartion time (test code = 2238945684) 0.19 s MV Peak E Tone (test code = 2872753442) 64.5 cm/s MV Peak A Tone (test code = 5682627292) 40.9 cm/s E/A ratio (test code = 8472176718) 1.58 ratio MV stenosis pressure 1/2 time (test code = 3757532219) 56.3 ms MV Prop V (test code = 6362897576) 51.10 cm/s MV E/e' septal (test code = 5398885001) 8.5 cm/s Tapse (test code = 3102361121) 1.43 cm LVOT stroke volume (test code = 5614358406) 44.70 cm3 LVOT peak tone (test code = 4349687674) 111.6 cm/s LVOT mn grad (test code = 7267403380) 2.4 mmHg AV LVOT peak gradient (test code = 2560821188) 5.0 mmHg LVOT peak VTI (test code = 9961652253) 17.5 cm LV V1 mean (test code = 9686163658) 72.10 cm/s Aortic valve mean velocity (test code = 5545099240) 106.4 cm/s Ao peak tone (test code = 7985148206) 151.1 cm/s Ao VTI (test code = 0408477630) 22.9 cm AV area by cont VTI (test code = 4352756258) 2.0 cm2 AV area peak tone (test code = 2834399682) 1.9 cm2 Ao max PG (test code = 4436490043) 9.10 mm[Hg] AV peak gradient (test code = 8863685735) 9.1 mmHg AV valve area (test code = 4070558283) 1.96 cm2 AV mean gradient (test code = 0330862805) 5.0 mmHg Radiology Study observation (narrative) (test code = 38934-8) ZAK (test code = ZAK) ?Left?Ventricle: Left [...] color flow Doppler, spectral Doppler and strain. [facility] GLUCOSE (AUTOMATED)2024-04-27 21:43:50* Test Item Value Reference Range Interpretation Comme nts POCT GLU (test code = 4991546821) 125 mg/dL 70-110 H Lab Interpretation (test cod e = 78744-5) Abnormal [facility] GLUCOSE (AUTOMATED)2024-04-27 16:24:49* Test Item Value Reference Range Interpretation Comme nts POCT GLU (test code = 0286862018) 198 mg/dL 70-110 H Lab Interpretation (test cod e = 25253-0) Abnormal [facility] GLUCOSE (AUTOMATED)2024-04-27 12:42:16* Test Item Value Reference Range Interpretation Comme nts POCT GLU (test code = 4948063227) 116 mg/dL 70-110 H Lab Interpretation (test cod e = 91043-4) [facility]2024-04-27 06:52:13* Test Item Value Reference Range Interpretation Comme nts POCT GLU (test code = 6356583128) 89 mg/dL 70-110 Lab Interpretation (test cod e = 18158-4) Normal [facility] GLUCOSE (AUTOMATED)2024-04-27 01:50:16* Test Item Value Reference Range Interpretation Comme nts POCT GLU (test code = 5180608308) 133 mg/dL 70-110 H Lab Interpretation (test cod e = 00960-3) [facility]2024-04-26 20:57:45* Test Item Value Reference Range Interpretation Comme nts POCT GLU (test code = 1183536467) 134 mg/dL 70-110 H Lab Interpretation (test cod e = 79467-8) [facility]2024-04-26 16:23:43* Test Item Value Reference Range Interpretation Comme nts POCT GLU (test code = 9386400456) 151 mg/dL 70-110 H Lab Interpretation (test cod e = 79869-5) [facility]normal [facility]2024-04-26 12:54:15* Test Item Value Reference Range Interpretation Comme nts POCT GLU (test code = 6917691324) 193 mg/dL 70-110 H Lab Interpretation (test cod e = 55535-5) [facility]normal [facility]cos[facility] Hemoglobin (A1C)2024-04-26 05:04:09* Test Item Value Reference Range Interpretation Comme nts HGB A1C (test code = 4548-4) 9.2 % 4.0-5.7 H ZAK (test code = ZAK) Reference RangesNormal: <5.7%Prediabetes: 5.7 - 6.4%Diabetes: > 6.5% Lab Interpretation (test code = 04080-6) [facility] TylerCritical Aenp4709-05-44 04:24:58Daniele Maharaj MD ? ? 04/25/2024 11:24 PMCritical Care Performed by: Daniele Maharaj MDAuthorizedby: Daniele Maharaj MD ?Critical care provider statement: ?Critical [...] separately billable procedures and treating other patients. [facility] [id number] 03:34:58* Test Item Value Reference Range Interpretation Comme nts TROPONIN I (test code = 2015097248) 0.007 ng/mL <=0.034 ZAK (test code = [...] of biotin. Lab Interpretation (test code = 04645-6) Normal [facility] Tyler[facility]-TERMINAL GUO-[id number] 03:32:58* Test Item Value Reference Range Interpretation Comme nts NT-proBNP (test code = 00391-9) 1360 pg/mL <=125 H ZAK (test code = ZAK) Positive: Heart Failure Likely Lab Interpretation (test code = 29729-6) [facility]normal [facility] TylerMagnesium2024-08-26 03:18:34* Test Item Value Reference Range Interpretation Comme nts MAGNESIUM (test code = 9425034278) 1.6 mg/dL 1.7-2.4 L Lab Interpretation (test cod e = 67372-5) [facility]normal [facility] TylerCOMP. METABOLIC PANEL (30591)2024-04-26 03:18:14* Test Item Value Reference Range Interpretation Comme nts NA (test code = 1201939092) 134 mmol/L 135-145 L K (test code = 8330042951) 3.8 mmol/L 3.5-5.0 CL (test code = 1535537337) 98 mmol/L 98-108 CO2 TOTAL (test code = 9107743389) 28 mmol/L 23-31 AGAP (test code = 1180584487) 8 2-16 BUN (test code = 2877174255) 15 mg/dL 7-23 GLUCOSE (test code = 3271429656) 131 mg/dL 70-110 H CREATININE (test code = 2160-0) 0.67 mg/dL 0.50-1.04 TOTAL BILI (test code = 0575000467) 1.6 mg/dL 0.1-1.1 H CALCIUM (test code = 9394195127) 9.7 mg/dL 8.6-10.6 T PROTEIN (test code = 5160965504) 8.2 g/dL 6.3-8.2 ALBUMIN (test code = 3662615126) 4.5 g/dL 3.5-5.0 ALK PHOS (test code = 5290043596) 93 U/L 34-122 ALTv (test code = 1742-6) 21 U/L 5-35 AST(SGOT) (test code = 1786357997) 35 U/L 13-40 eGFR (test code = 26621-6) 95.9 mL/min/1.73m2 CKD-EPI eGFR (2020). Assuming creatinine has been stable day-to-day for at least three months, the eGFR indicates Category G1 (>= 90 mL/min/1.73 m2) Lab Interpretation (test code = 66135-7) [facility]normal [facility]2024-[facility]-26 03:18:14* Test Item Value Reference Range Interpretation Comme nts LIPASE (test code = 9984225399) 100 U/L 0-220 Lab Interpretation (test cod e = 87573-4) Normal [facility] WITH [id number] 02:36:12* Test Item Value Reference Range Interpretation [...] 34.3 g/dL 31.6-35.1 RDW-SD (test code = 97773-0) 42.9 fL 39.0-49.9 RDW-CV (test code = 788-0) 13.0 % 12.0-15.5 PLT (test code = 777-3) 196 166-358 MPV (test code = 29449-0) 10.0 fL 9.5-12.9 NRBC/100 WBC (test code = 1571005643) 0.0 0.0-10.0 NRBC x10^3 (test code = 9769809800) See_Comment [Automated messa ge] The system which generated this result transmitted reference range: 10*3/?L. The reference range was not used to interpret this result as normal/abnormal. GRAN MAT (NEUT) % (test code = 770-8) 78.4 % IMM GRAN % (test code = 0438587290) 0.50 % LYMPH % (test code = 736-9) 11.7 % MONO % (test code = 5905-5) 8.1 % EOS % (test code = 713-8) 0.8 % BASO % (test code = 706-2) 0.5 % GRAN MAT x10^3(ANC) (test code = 2672693337) 6.88 10*3/uL 1.88-7.09 IMM GRAN x10^3 (test code = 7954673064) 0.04 10*3/uL 0.00-0.06 LYMPH x10^3 (test code = 731-0) 1.03 10*3/uL 1.32-3.29 L MONO x10^3 (test code = 742-7) 0.71 10*3/uL 0.33-0.92 EOS x10^3 (test code = 711-2) 0.07 10*3/uL 0.03-0.39 BASO x10^3 (test code = 704-7) 0.04 10*3/uL 0.01-0.07 Lab Interpretation (test code = 30375-9) Abnormal [facility] GLUCOSE (AUTOMATED)2022-09-19 18:24:53* Test Item Value Reference Range Interpretation Comme nts POCT GLU (test code = 6098682727) 147 mg/dL 70-110 H Lab Interpretation (test cod e = 60065-2) Abnormal [facility] GLUCOSE (AUTOMATED)2022-09-19 16:02:54* Test Item Value Reference Range Interpretation Comme nts POCT GLU (test code = 5879239300) 86 mg/dL 70-110 Lab Interpretation (test cod e = 43439-6) Normal [facility] GLUCOSE (AUTOMATED)2022-09-19 01:50:19* Test Item Value Reference Range Interpretation Comme nts POCT GLU (test code = 1202156630) 127 mg/dL 70-110 H Lab Interpretation (test cod e = 22345-2) Abnormal [facility] GLUCOSE (AUTOMATED)2022-09-18 22:39:24* Test Item Value Reference Range Interpretation Comme nts POCT GLU (test code = 2059208266) 104 mg/dL 70-110 Lab Interpretation (test cod e = 66770-7) Normal [facility] GLUCOSE (AUTOMATED)2022-09-18 17:35:45* Test Item Value Reference Range Interpretation Comme nts POCT GLU (test code = 4233187032) 158 mg/dL 70-110 H Lab Interpretation (test cod e = 04124-8) Abnormal [facility] GLUCOSE (AUTOMATED)2022-09-18 14:16:24* Test Item Value Reference Range Interpretation Comme nts POCT GLU (test code = 4994464045) 148 mg/dL 70-110 H Lab Interpretation (test cod e = 46384-1) Abnormal [facility] GLUCOSE (AUTOMATED)2022-09-18 02:59:51* Test Item Value Reference Range Interpretation Comme nts POCT GLU (test code = 1676505732) 174 mg/dL 70-110 H Lab Interpretation (test cod e = 76121-0) [facility]2022-09-17 23:30:34* Test Item Value Reference Range Interpretation Comme nts Height (test code = 0614959193) in Weight (test code = 9893880375) lbs Systolic BP (test code = 1799161833) mmHg Diastolic BP (test code = 1122869460) mmHg Heart Rate (test code = 0330950032) bpm BSA (test code = 1427241949) 1.98 m2 Ao root diam (test code = 6573220832) 3.10 cm Aortic root (test code = 7772024541) 3.1 cm Ao root annulus (test code = 7195315455) 3.1 cm LVOT diameter (test code = 5688327215) 1.82 cm LVOT area (test code = 4542976517) 2.60 cm2 LVIDD (test code = 5225817170) 4.00 cm Left Ventricular End Diastolic Volume by Teichholz Method (test code = 8434731) 69.3 mL IVS (test code = 2343969051) 1.19 cm Interventricular Septum Diastolic Thickness by 2D (test code = 8679302) 1.19 cm LVPWD (test code = 1639631768) 1.19 cm PW (test code = 1454622428) 1.19 cm 0.6-1.1 EF(Teich) (test code = 9214821759) 54.60 % LVIDS (test code = 0341482923) 2.90 cm Left Ventricular End Systolic Volume by Teichholz Method (test code = 4399728) 31.4 mL FS (test code = 7962954047) 28 % EF - 2D (test code = 30073922) 54.60 % LA size (test code = 9635914326) 4.5 cm LAV(MOD-sp4) (test code = 4617005376) 64.20 mL E wave decelartion time (test code = 2047262426) 0.14 s MV Peak E Tone (test code = 9705083706) 73.1 cm/s MV stenosis pressure 1/2 time (test code = 3101846163) 41.2 ms MV Peak A Tone (test code = 3427300579) 27.2 cm/s E/A ratio (test code = 1687584770) ratio MV Prop V (test code = 0042197301) 25.00 cm/s MV E/e' septal (test code = 4895689242) 8.1 cm/s Tapse (test code = 6072652781) 1.63 cm TR Peak Tone (test code = 6142781498) 199.0 cm/s Triscuspid Valve Regurgitation Peak Gradient (test code = 3260553450) mmHg LVOT stroke volume (test code = 9720531343) 54.40 cm3 LVOT peak tone (test code = 7296450114) 127.5 cm/s LVOT mn grad (test code = 2661900927) mmHg AV LVOT peak gradient (test code = 5349797149) mmHg LVOT peak VTI (test code = 1753003227) 21.0 cm LV V1 mean (test code = 4581031215) 69.50 cm/s Aortic valve mean velocity (test code = 1466319815) 119.0 cm/s Ao peak tone (test code = 7208628512) 161.8 cm/s Ao VTI (test code = 8154429960) 26.0 cm AV area by cont VTI (test code = 8447128612) 2.1 cm2 AV area peak tone (test code = 4062054248) 2.0 cm2 Ao max PG (test code = 6620747978) 10.50 mm[Hg] AV peak gradient (test code = 0306610237) mmHg AV valve area (test code = 5688718371) 2.09 cm2 AV mean gradient (test code = 9656352223) mmHg Radiology Study observation (narrative) (test code = 91618-7) ZAK (test code = ZAK) ?Left?Ventricle: Left [...] 2D, color flow Doppler and spectral Doppler. [facility]53:28* Test Item Value Reference Range Interpretation Comme nts POCT GLU (test code = 5044656586) 121 mg/dL 70-110 H Lab Interpretation (test cod e = 56234-0) Abnormal [facility] GLUCOSE (AUTOMATED)2022-09-17 17:41:55* Test Item Value Reference Range Interpretation Comme nts POCT GLU (test code = 5493022029) 193 mg/dL 70-110 H Lab Interpretation (test cod e = 81838-0) Abnormal [facility] GLUCOSE (AUTOMATED)2022-09-17 13:47:30* Test Item Value Reference Range Interpretation Comme nts POCT GLU (test code = 2331143966) 115 mg/dL 70-110 H Lab Interpretation (test cod e = 97974-8) [facility] 06:05:45* Test Item Value Reference Range Interpretation Comme nts HGB A1C (test code = 4548-4) 8.9 % 4.0-5.7 H ZAK (test code = ZAK) Reference RangesNormal: <5.7%Prediabetes: 5.7 - 6.4%Diabetes: > 6.5% Lab Interpretation (test code = 78224-6) [facility] [id number] 22:23:39 * Test Item Value Reference Range Interpretation Comme nts TSH (test code = 9755495442) See_Comment [Automated messa ge] The system which generated this result transmitted reference range: 0.45 - 4.70 mIU/L. The reference range was not used to interpret this result as normal/abnormal. Lab Interpretation (test code = 01423-3) Normal [facility] [id number] 22:04:57* Test Item Value Reference Range Interpretation Comments TROPONIN I (test code = 2319394638) 0.007 ng/mL See_Comment [Automated message] The system [...] of biotin. Lab Interpretation (test code = 89193-6) [facility] 21:53:35* Test Item Value Reference Range Interpretation Comme nts MAGNESIUM (test code = 2022542723) 1.7 mg/dL 1.7-2.4 Lab Interpretation (test cod e = 61950-0) Normal [facility]ABOLIC PANEL (62189)2022-09-16 21:53:15* Test Item Value Reference Range Interpretation Comme nts NA (test code = 4355069154) 138 mmol/L 135-145 K (test code = 1124029951) 4.3 mmol/L 3.5-5.0 CL (test code = 9138468407) 101 mmol/L 98-108 CO2 TOTAL (test code = 5543109982) 25 mmol/L 23-31 AGAP (test code = 7845660117) 2-16 BUN (test code = 2523915230) 16 mg/dL 7-23 GLUCOSE (test code = 2997270322) 186 mg/dL 70-110 H CREATININE (test code = 8558933819) 0.73 mg/dL 0.50-1.04 TOTAL BILI (test code = 4781507653) 1.4 mg/dL 0.1-1.1 H CALCIUM (test code = 8763789403) 9.4 mg/dL 8.6-10.6 T PROTEIN (test code = 4208664368) 7.7 g/dL 6.3-8.2 ALBUMIN (test code = 4491179325) 4.7 g/dL 3.5-5.0 ALK PHOS (test code = 9678104931) 125 U/L 34-122 H ALTv (test code = 1742-6) 21 U/L 5-35 AST(SGOT) (test code = 7469932473) 22 U/L 13-40 eGFR (test code = 2325585520) mL/min/1.73m2 ZAK (test code = ZAK) Association [...] imaging tests). Lab Interpretation (test code = 95181-4) Abnormal [facility] WITH [id number] 21:34:56* Test Item Value Reference Range Interpretation Comme nts WBC (test code = 6690-2) See_Comment [Automated [employer]] The system which generated this result transmitted reference range: 4.30 - 11.10 10*3/?L. The reference range was not used to interpret this result as normal/abnormal. RBC (test code = 789-8) See_Comment [Automated [employer]] The system which generated this result transmitted [...] 33.3 g/dL 31.6-35.1 RDW-SD (test code = 82818-5) 42.7 fL 39.0-49.9 RDW-CV (test code = 788-0) 12.8 % 12.0-15.5 PLT (test code = 777-3) See_Comment [Automated [employer] ge] The system which generated this result transmitted reference range: 166 - 358 10*3/?L. The reference range was not used to interpret this result as normal/abnormal. MPV (test code = 73090-7) 9.6 fL 9.5-12.9 NRBC/100 WBC (test code = 1944730963) See_Comment [Automated [employer] ssage] The system which generated this result transmitted reference range: 0.0 - 10.0 /100 WBCs. The reference range was not used to interpret this result as normal/abnormal. NRBC x10^3 (test code = 4580951989) See_Comment [Automated [employer] ge] The system which generated this result transmitted reference range: 10*3/?L. The reference range was not used to interpret this result as normal/abnormal. GRAN MAT (NEUT) % (test code = 770-8) 65.8 % IMM GRAN % (test code = 4503215177) 0.30 % LYMPH % (test code = 736-9) 22.1 % MONO % (test code = 5905-5) 9.5 % EOS % (test code = 713-8) 1.4 % BASO % (test code = 706-2) 0.9 % GRAN MAT x10^3(ANC) (test code = 3343861024) 5.81 10*3/uL 1.88-7.09 IMM GRAN x10^3 (test code = 9820109508) 0.03 10*3/uL 0.00-0.06 LYMPH x10^3 (test code = 731-0) 1.95 10*3/uL 1.32-3.29 MONO x10^3 (test code = 742-7) 0.84 10*3/uL 0.33-0.92 EOS x10^3 (test code = 711-2) 0.12 10*3/uL 0.03-0.39 BASO x10^3 (test code = 704-7) 0.08 10*3/uL 0.01-0.07 H Lab Interpretation (test code = 68764-9) [facility]normal [facility]MO[facility], [id number] 19:52:00*.*.*.*.*.*.*.*.*.*.*.*.*.*FINAL*.*.*.*.*.*.*.*.*.*.*.*.*.*.*Computer- aided detection(CAD)utilized.Bilateral Breast Findings:There are scattered fibroglandular densities (25% - 50% fibroglandular). ?No significant masses, calcifications or other abnormalities are seen. ?Personally interpreted by: BK PLATA MD /Signed/ BK CABRAL MDUnCHRISTUS [facility] Consult Notes Date/Time Note Provider Source 2024-04-27 [...] ROBOTIC ASSISTED SALPINGO-OOPHORECTOMY 12/17/2012 [facility]; Location[facility] LAPAROSCOPIC ROBOTIC ASSISTED VAGINAL HYSTERECTOMY 12/17/2012 Surgeon: Reji Barriga [facility]; Location: [facility] LOC[facility] LYSIS OF ABDOMINAL ADHESIONS 02/03/2013 Surgeon: Get Whittington MD; Location: [facility] MAMMOGRAM, BILATERAL-DIAGNOSTIC 2013 REMOVAL GALLBLADDER 1998 ROBOTIC ASSISTED LYMPH NODE DISSECTION (SHX) 02/03/2013 Surgeon: Get Whittington MD; Location: [facility] [place] TUBAL LIGATION 1989 WIDE LOCAL VULVAR LESION EXCISION 06/13/2014 WIDE LOCAL VULVAR LESION EXCISION N/A 06/13/2014 Surgeon: Get Whittington MD; Location: [facility] Prior Living Situation: in a house and with their son, 1 story house DME: Standard Walker Cane Prior level of Mobility: ambulates with rolling Walker. Suspected ischemic or hemorraghic stroke:No Subjective: Pt was complaining of migraine headache 04/10 on the PS Patient/Family Goals: To get better Patient/Family verbalizes understanding of condition: Yes PAIN: -Pain Location: head -Pain rating before treatment: 8, After treatment: does not rate COMMUNICATION Primary Language: Slovenian Able to Verbalize needs: Yes Vision:good; no [...] min Zuri Hays PT [place] Lic No. [id number] [facility] Department of Physical Therapy Zuri Hays PT [facility] 2024-04-26 17:00:42 Associated Order(s): CONSULT CARDIOLOGY [facility] Cardiology Consult Note Patient: Sherrie Hrenandez Date of : 1955 04/26/2024 Primary Care [...] Recurrent paroxysmal defibrillation with RVR episodes noted: [id number] (age, female, hypertension, diabetes, history of CVA). Since last seen by dated 01/09/2022, seen by Dr. Esteban dated [...] ROBOTIC ASSISTED SALPINGO-OOPHORECTOMY 12/17/2012 Surgeon: Reji Barriga [facility]; Location: [facility] [place] LAPAROSCOPIC ROBOTIC ASSISTED VAGINAL HYSTERECTOMY 12/17/2012 Surgeon: Reji Barriga [facility]; Location: [facility] [place] LYSIS OF ABDOMINAL ADHESIONS 02/03/2013 Surgeon: Get Whittington MD; Location: [facility] [place] MAMMOGRAM, BILATERAL-DIAGNOSTIC 2012 REMOVAL GALLBLADDER 1998 ROBOTIC ASSISTED LYMPH NODE DISSECTION (SHX) 02/03/2013 Surgeon: Get Whittington MD; Location: [facility] [place] TUBAL LIGATION 1989 WIDE LOCAL VULVAR LESION EXCISION 06/13/2014 WIDE LOCAL VULVAR LESION EXCISION N/A 06/13/2014 Surgeon: Get Whittington MD; Location: [facility] Family History Problem Relation Age of Onset [...] her since passed. Has spiritual community at [employer] but doesn t go often due to not driving, never learned to drive. 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 Good work support. Pt values health wanting [...] 09/18/2022 140 mg/dL 11/23/2014 209 MG/DL (H) [id number]-S (mg/dL (calc)) Date Value 02/24/2015 141 (H) [...] 09/18/2022 140 mg/dL 11/23/2014 209 MG/DL (H) [id number]-T (mg/dL (calc)) Date Value 02/24/2015 141 (H) [...] Recurrent atrial fibrillation with RVR episodes noted: [id number]=7 (age, female, hypertension, diabetes, history of CVA). [...] 09/18/2022 140 mg/dL 11/23/2014 209 MG/DL (H) [id number]-X (mg/dL (calc)) Date Value 02/24/2015 141 (H) [...] 09/18/2022 140 mg/dL 11/23/2014 209 MG/DL (H) [id number]-A (mg/dL (calc)) Date Value 02/24/2015 141 (H) T2DM: Follow up PCP. Recommended goal A1c less than 6.5. Last Two A1C Results ([facility], POCT, [facility]) Recent Labs 04/25/24 2116 HGBA1C 9.2* Mild dilated ascending artery: 3.6 cm: In the setting of underlying longstanding high blood pressure. Recommended aggressive blood pressure control to keep blood pressure less than 130/80's. THEODORE:Sleep study dated 10/23/2021 reviewed shows presence of severe obstructive sleep apnea controlled with BiPAP. Recommended compliant with CPAP Rx plan reviewed with the hospitalist team. Primary cement patcher: Dr. Santos Thank you for allowing us to participate in the care of Sherrie Hernandez. If you have any questions or concerns please feel free to call our office at [phone]. I would be happy to be of further assistance for Sherrie Melendezthuan elise. Otoniel Bates MD [facility], Division of Cardiology [facility] T [facility] - Health History and Physical Notes Date/Time Note Provider Source 2024-04-26 01:51:45 MEDICINE [facility] ADMIT H&P Date of Service: 04/26/2024 CHIEF [...] 12/17/2012 Surgeon: Reji Barriga [facility]; Location: [facility] [place] LYSIS OF ABDOMINAL ADHESIONS 02/03/2013 Surgeon: Get Whittington MD; Location: [facility] MAMMOGRAM, BILATERAL-DIAGNOSTIC 2012 REMOVAL GALLBLADDER 1998 ROBOTIC ASSISTED LYMPH NODE DISSECTION (SHX) 02/03/2013 Surgeon: Get Whittington MD; Location: [facility] TUBAL LIGATION 1989 WIDE LOCAL VULVAR LESION EXCISION 06/13/2014 WIDE LOCAL VULVAR LESION EXCISION N/A 06/13/2014 Surgeon: Get Whittington MD; Location: [facility] Family History Problem Relation Age of Onset [...] her since passed. Has spiritual community at [employer] but doesn t go often due to not driving, never learned to drive. Works at [employer] at [employer] at [employer]. Good work support. Pt values health wanting [...] Surrogate decision maker: Adonis Wilkes (child) - T [facility] Notes Date/Time Note Provider Source 2024-07-08 20:18:15 Awake, alert oriented X4, respiratory even and unlabored,skin w/d color appropriate for race, moves all ext well, pt encouraged to follow up with pcp and or return as needed. Pt given printed and verbal discharge instructions regarding essential hypertension n&v and hyperglycemia. , patient verbralized understanding and signature obtained, patient denies any other concerns. Prescriptions provided Advised to seek medical attention for new/prolonged/worsening of symptoms. No adverse reaction to meds given in ER noted upon discharge. [facility]. CLERK Falguni Harding RN [facility] 2024-07-08 19:02:47 Nurse Report Report given to Falguni MAYORGA. Chief complaint, assessment findings, infusion verify and orders reviewed. Plan of care discussed at bedside with patient and both nurses. Patient/family members verbalized understanding. Meghan Echeverria RN CLERK Meghan Echeverria RN [facility] 2024-07-08 16:55:12 Shortness of breath, headaches, chills x3 days. No chest pain. HX: CA in 2012, CVA, +Eloquis, pacemaker, A-fib. CLERK Paulette Calle RN [facility] 2024-07-07 13:00:00 Summary: MRI MODE Patient's Biotronik Edora pacemaker placed into MRI Auto mode DOO @90. Auto mode deactivates on 07/21. F Herrera [facility] 2024-04-29 15:53:46 TRANSITIONAL CARE MANAGEMENT ASSESSMENT 04/29/2024 Sherrie Hernandez [id number] Sherrie Hernandez is a 68 year old /White female was admitted on 04/25/24 to [facility] ICU. She was discharged on 04/28/24 with discharge disposition of HR- Routine Discharge. Admitting Physician: Shira Salgado Discharge Diagnosis: Flu-like symptoms Other Diagnosis: History of stroke A-fib with RVR Possible nonsustained V. tach run Hypertension Depression Diabetes Hyperlipidemia Hypomagnesia No linked episodes TCM Uxh-yjpi-rp-face outreach documentation: Discharge Assessment Chart Assessed: 04/29/24 Future Appointments: Future Appointments Provider Department Dept Phone 05/24/2024 11:40 AM Alan Mcclain MD [facility] Neurology, [place] [facility] [phone] Transition CM attempted to contact patient x2. CM left a discreet voicemail explaining purpose of call and call back information. Niya Smith RN [facility] 2024-04-29 13:51:29 CM LVM to return call. Will attempt again at a later time. [facility] 2024-04-28 15:15:56 Problem: Discharge Planning Goal: Adequate for discharge Outcome: Adequate for discharge Problem: Fluid Volume - Imbalanced Goal: Absence of signs and symptoms of imbalanced fluid volume Outcome: Adequate for discharge Problem: Glucose Control - Initiated in Adult CC Goal: Glucose level within specified parameters Outcome: Adequate for discharge Problem: Infection, Risk of or Actual Goal: Absence of infection Outcome: Adequate for discharge Problem: Nutrition Deficit Goal: Adequate nutritional intake Outcome: Adequate for discharge Problem: Pain Goal: Control of pain at or below patient's documented comfort goal Outcome: Adequate for discharge Goal: Reduction in pain sensation Outcome: Adequate for discharge Problem: Respiratory Function - Impaired Goal: Able to cough effectively Outcome: Adequate for discharge Goal: Patent airway Outcome: Adequate for discharge Problem: Skin integrity Impaired (Risk or Actual) Goal: Prevention of new skin breakdown Outcome: Adequate for discharge Problem: Tissue Perfusion - Altered, Risk of Goal: Hemodynamically stable Outcome: Adequate for discharge Problem: Venous Thromboembolism, (actual or risk of) Goal: Absence of venous thromboembolism (Risk) Outcome: Adequate for discharge Problem: Falls, Risk of Goal: Absence of falls Outcome: Adequate for discharge Huong William RN [facility] 2024-04-28 11:36:54 Problem: Discharge Planning Goal: Adequate for discharge Outcome: Progressing as expected Problem: Fluid Volume - Imbalanced Goal: Absence of signs and symptoms of imbalanced fluid volume Outcome: Progressing as expected Problem: Glucose Control - Initiated in Adult CC Goal: Glucose level within specified parameters Outcome: Progressing as expected Problem: Infection, Risk of or Actual Goal: Absence of infection Outcome: Progressing as expected Problem: Nutrition Deficit Goal: Adequate nutritional intake Outcome: Progressing as expected Problem: Pain Goal: Control of pain at or below patient's documented comfort goal Outcome: Progressing as expected Goal: Reduction in pain sensation Outcome: Progressing as expected Problem: Respiratory Function - Impaired Goal: Able to cough effectively Outcome: Progressing as expected Goal: Patent airway Outcome: Progressing as expected Problem: Skin integrity Impaired (Risk or Actual) Goal: Prevention of new skin breakdown Outcome: Progressing as expected Problem: Tissue Perfusion - Altered, Risk of Goal: Hemodynamically stable Outcome: Progressing as expected Problem: Venous Thromboembolism, (actual or risk of) Goal: Absence of venous thromboembolism (Risk) Outcome: Progressing as expected Problem: Falls, Risk of Goal: Absence of falls Outcome: Progressing as expected [facility] 2024-04-28 05:11:53 Problem: Falls, Risk of Goal: Absence of falls Outcome: Progressing as expected [facility] Stephanie Loredo RN [facility] 2024-04-28 00:25:51 Problem: Discharge Planning Goal: Adequate for discharge Outcome: Progressing as expected Problem: Fluid Volume - Imbalanced Goal: Absence of signs and symptoms of imbalanced fluid volume Outcome: Progressing as expected Problem: Glucose Control - Initiated in Adult CC Goal: Glucose level within specified parameters Outcome: Progressing as expected Problem: Infection, Risk of or Actual Goal: Absence of infection Outcome: Progressing as expected Problem: Nutrition Deficit Goal: Adequate nutritional intake Outcome: Progressing as expected Problem: Pain Goal: Control of pain at or below patient's documented comfort goal Outcome: Progressing as expected Goal: Reduction in pain sensation Outcome: Progressing as expected Problem: Respiratory Function - Impaired Goal: Able to cough effectively Outcome: Progressing as expected Goal: Patent airway Outcome: Progressing as expected Problem: Tissue Perfusion - Altered, Risk of Goal: Hemodynamically stable Outcome: Progressing as expected Problem: Venous Thromboembolism, (actual or risk of) Goal: Absence of venous thromboembolism (Risk) Outcome: Progressing as expected Problem: Skin integrity Impaired (Risk or Actual) Goal: Prevention of new skin breakdown Outcome: Progressing as expected T [facility] 2024-04-27 16:49:24 Problem: Discharge Planning Goal: Adequate for discharge Outcome: Progressing as expected Problem: Fluid Volume - Imbalanced Goal: Absence of signs and symptoms of imbalanced fluid volume Outcome: Progressing as expected Problem: Glucose Control - Initiated in Adult CC Goal: Glucose level within specified parameters Outcome: Progressing as expected Problem: Infection, Risk of or Actual Goal: Absence of infection Outcome: Progressing as expected Problem: Nutrition Deficit Goal: Adequate nutritional intake Outcome: Progressing as expected Problem: Pain Goal: Control of pain at or below patient's documented comfort goal Outcome: Progressing as expected Goal: Reduction in pain sensation Outcome: Progressing as expected Problem: Respiratory Function - Impaired Goal: Able to cough effectively Outcome: Progressing as expected Goal: Patent airway Outcome: Progressing as expected Problem: Skin integrity Impaired (Risk or Actual) Goal: Prevention of new skin breakdown Outcome: Progressing as expected Problem: Tissue Perfusion - Altered, Risk of Goal: Hemodynamically stable Outcome: Progressing as expected Problem: Venous Thromboembolism, (actual or risk of) Goal: Absence of venous thromboembolism (Risk) Outcome: Progressing as expected [facility] Nahomi Reinoso RN [facility] 2024-04-26 22:14:20 Problem: Discharge Planning Goal: Adequate for discharge Outcome: Progressing as expected Problem: Fluid Volume - Imbalanced Goal: Absence of signs and symptoms of imbalanced fluid volume Outcome: Progressing as expected Problem: Glucose Control - Initiated in Adult CC Goal: Glucose level within specified parameters Outcome: Progressing as expected Problem: Infection, Risk of or Actual Goal: Absence of infection Outcome: Progressing as expected Problem: Nutrition Deficit Goal: Adequate nutritional intake Outcome: Progressing as expected Problem: Pain Goal: Control of pain at or below patient's documented comfort goal Outcome: Progressing as expected Goal: Reduction in pain sensation Outcome: Progressing as expected Problem: Respiratory Function - Impaired Goal: Able to cough effectively Outcome: Progressing as expected Goal: Patent airway Outcome: Progressing as expected Problem: Skin integrity Impaired (Risk or Actual) Goal: Prevention of new skin breakdown Outcome: Progressing as expected Problem: Tissue Perfusion - Altered, Risk of Goal: Hemodynamically stable Outcome: Progressing as expected Problem: Venous Thromboembolism, (actual or risk of) Goal: Absence of venous thromboembolism (Risk) Outcome: Progressing as expected Korina Vu RN [facility] 2024-04-26 07:28:50 Problem: Discharge Planning Goal: Adequate for discharge Outcome: Progressing as expected Problem: Fluid Volume - Imbalanced Goal: Absence of signs and symptoms of imbalanced fluid volume Outcome: Progressing as expected Problem: Glucose Control - Initiated in Adult CC Goal: Glucose level within specified parameters Outcome: Progressing as expected Problem: Infection, Risk of or Actual Goal: Absence of infection Outcome: Progressing as expected Problem: Nutrition Deficit Goal: Adequate nutritional intake Outcome: Progressing as expected Problem: Pain Goal: Control of pain at or below patient's documented comfort goal Outcome: Progressing as expected Goal: Reduction in pain sensation Outcome: Progressing as expected Problem: Respiratory Function - Impaired Goal: Able to cough effectively Outcome: Progressing as expected Goal: Patent airway Outcome: Progressing as expected Problem: Skin integrity Impaired (Risk or Actual) Goal: Prevention of new skin breakdown Outcome: Progressing as expected Problem: Tissue Perfusion - Altered, Risk of Goal: Hemodynamically stable Outcome: Progressing as expected Problem: Venous Thromboembolism, (actual or risk of) Goal: Absence of venous thromboembolism (Risk) Outcome: Progressing as expected Delvin Turcios RN [facility] 2024-04-26 05:08:56 Problem: Discharge Planning Goal: Adequate for discharge Outcome: Progressing as expected Problem: Fluid Volume - Imbalanced Goal: Absence of signs and symptoms of imbalanced fluid volume Outcome: Progressing as expected Problem: Glucose Control - Initiated in Adult CC Goal: Glucose level within specified parameters Outcome: Progressing as expected Problem: Infection, Risk of or Actual Goal: Absence of infection Outcome: Progressing as expected Problem: Nutrition Deficit Goal: Adequate nutritional intake Outcome: Progressing as expected Problem: Pain Goal: Control of pain at or below patient's documented comfort goal Outcome: Progressing as expected Goal: Reduction in pain sensation Outcome: Progressing as expected Problem: Respiratory Function - Impaired Goal: Able to cough effectively Outcome: Progressing as expected Goal: Patent airway Outcome: Progressing as expected Problem: Skin integrity Impaired (Risk or Actual) Goal: Prevention of new skin breakdown Outcome: Progressing as expected Problem: Tissue Perfusion - Altered, Risk of Goal: Hemodynamically stable Outcome: Progressing as expected Problem: Venous Thromboembolism, (actual or risk of) Goal: Absence of venous thromboembolism (Risk) Outcome: Progressing as expected [facility] 2024-04-26 00:35:22 Patient admitted to ICU for diagnosis of V-Tach Patient agrees to admission, discussed plan of care with patient and family. Patient is awake, alert, oriented, resp reg unlabored, color appropriate for race, PIV intact No adverse reaction to medications administered while in ED Belongings with patient to unit Report to Lizzie MAYORGA [facility] Boston Ceballos RN [facility] 2024-04-26 00:16:39 Report given to Lizzie MAYORGA in ICU [facility] 2024-04-25 23:24:58 Associated Order(s): Critical Care Critical Care Performed by: Daniele Maharaj MD Authorized by: Daniele Maharaj MD Critical care provider statement: Critical care time (minutes): 45 Critical care time was exclusive of: Separately billable procedures and treating other patients and teaching time Critical care was necessary to treat or prevent imminent or life-threatening deterioration of the following conditions: Cardiac failure Critical care was time spent personally by me on the following activities: Development of treatment plan with patient or surrogate, evaluation of patient's response to treatment, examination of patient, obtaining history from patient or surrogate, ordering and performing treatments and interventions, ordering and review of laboratory studies, ordering and review of radiographic studies, pulse oximetry, re-evaluation of patient's condition and review of old charts Care discussed with: admitting provider Comments: Due to a high probability of clinically significant, life threatening deterioration, the patient required my highest level of preparedness to intervene emergently and I personally spent this critical care time directly and personally managing the patient. This critical care time included obtaining a history; examining the patient; pulse oximetry; ordering and review of studies; arranging urgent treatment with development of a management plan; evaluation of patient's response to treatment; frequent reassessment; and, discussions with other providers. This critical care time was performed to assess and manage the high probability of imminent, life-threatening deterioration that could result in multi-organ failure. It was exclusive of separately billable procedures and treating other patients. [facility] 2024-04-25 23:05:52 V Tach observed on tele monitor, provider notified. [facility] 2024-04-25 20:37:51 Pt arrived ambulatory without assist. Pt c/o fever, cough, N/V, headache, body aches, and sore throat, started on Friday. Pt took home COVID test yesterday and it was negative. Neisha Babb RN [facility] 2024-04-25 20:31:00 Images from the original note were not included. EMERGENCY DEPARTMENT ENCOUNTER [facility] Patient Name: Sherrie Hernandez Date of : 1955 68 year old Exam Room:TX2/LA2 Primary Care Physician: Sushila Babb [facility] Patient Escorted by: Self [9] Mode of Arrival: Personal means [1] EMS Treatment Prior to ED Arrival: [employer] treatment: None ED Events Date/Time Event User Comments 04/25/242056 Medical Screening Begins DANIELE MAHARAJ MD -- 04/25/242056 First Provider Evaluation DANIELE MAHARAJ MD -- Chief Complaint Chief Complaint Patient presents with Fever Headache Cough ED Triage Notes Neisha Babb RN 04/25/2024 20:40 Pt arrived ambulatory without assist. Pt c/o fever, cough, N/V, headache, body aches, and sore throat, started on Friday. Pt took home COVID test yesterday and it was negative. HPI History provided by: Patient Illness Location: Generalized Severity: Moderate Onset quality: Gradual Duration: 3 days Timing: Constant Progression: Worsening Relieved by: Nothing Worsened by: Nothing Associated symptoms: myalgias Associated symptoms: no abdominal pain, no chest pain, no cough, no fatigue, no fever, no headaches, no nausea, no shortness of breath, no vomiting and no wheezing Past Medical History / Immunizations Past Medical History: Diagnosis Date Atrial fibrillation [...] not stated as uncontrolled 12/06 Uterine cancer Tetanus received in last 5 years: No Past Surgical History Past Surgical History: Procedure Laterality Date SECTION 1989 LAB ONLY PAP SMEAR-LIQUID BASED 2012 LAPAROSCOPIC APPENDECTOMY 09/13/2013 Surgeon: Radhika Newton MD; [facility] LAPAROSCOPIC ROBOTIC ASSISTED SALPINGO-OOPHORECTOMY 12/17/2012 Surgeon: Reji Barriga [facility]; Location: [facility] LAPAROSCOPIC ROBOTIC ASSISTED VAGINAL HYSTERECTOMY 12/17/2012 Surgeon: Reji Barriga [facility]; Location: [facility] LYSIS OF ABDOMINAL ADHESIONS 02/03/2013 Surgeon: Get Whittington MD; Location: [facility] MAMMOGRAM, BILATERAL-DIAGNOSTIC 2012 REMOVAL GALLBLADDER 1998 ROBOTIC ASSISTED LYMPH NODE DISSECTION (SHX) 02/03/2013 Surgeon: Get Whittington MD; Location: [facility] TUBAL LIGATION 1989 WIDE LOCAL VULVAR LESION EXCISION 06/13/2014 WIDE LOCAL VULVAR LESION EXCISION N/A 06/13/2014 Surgeon: Get Whittington MD; Location: [facility] Allergies Allergies Allergen Reactions Paclitaxel Rash and Other - See comments atrial fibrillation Latex Rash Adhesive Tape-Silicones Rash Including op site adhesives -- significant rash Metformin Unknown - See comments Chills, hypoglycemia, nausea/vomiting Pindolol Hallucinations Social History Tobacco Use Never smoked or used smokeless tobacco. Passive Exposure: Never Alcohol Use Yes; 0.0 standard drinks of alcohol per week; 0 Standard drinks or equivalent. Comments: OCCASIONALLY Drug Use No. Sexual Activity Not sexually active; Control/Protection: Surgical. Comments: Pt's is diabetic and has ED Review of Systems Review of Systems Constitutional: Negative. Negative for chills, fatigue, fever and unexpected weight change. HENT: Negative. Eyes: Negative. Negative for discharge and itching. Respiratory: Negative. Negative for cough, chest tightness, shortness of breath and wheezing. Cardiovascular: Negative. Negative for chest pain and palpitations. Gastrointestinal: Negative. Negative for abdominal distention, abdominal pain, nausea and vomiting. Genitourinary: Negative. Negative for dysuria, urgency, frequency and flank pain. Musculoskeletal: Positive for arthralgias and myalgias. Skin: Negative. Negative for color change, pallor and wound. Neurological: Negative. Negative for dizziness, syncope, light-headedness and headaches. Psychiatric/Behavioral: Negative. Negative for agitation and behavioral problems. All other systems reviewed and are negative. Endocrine: Endocrine negative Physical Exam ED Triage Vitals [04/25/242040] Weight 88.5 kg (195 lb) Actual or estimated Estimated by patient/family report Height 1.651 m (5' 5") BP (!) 206/93 Pulse 94 Resp 18 Temp 37.7 ?C (99.9 ?F) Temp source Oral SpO2 100 % Measured on Room air Physical Exam Vitals reviewed. Constitutional: Appearance: She is well-developed. HENT: Head: Normocephalic and atraumatic. Nose: Nose normal. Eyes: Conjunctiva/sclera: Conjunctivae normal. Neck: Trachea: No tracheal deviation. Cardiovascular: Rate and Rhythm: Rhythm irregularly irregular. Heart sounds: Normal heart sounds. No murmur heard. No friction rub. Pulmonary: Effort: Pulmonary effort is normal. No respiratory distress. Breath sounds: Normal breath sounds. No stridor. No wheezing or rales. Abdominal: General: Bowel sounds are normal. There is no distension. Palpations: Abdomen is soft. Tenderness: There is no abdominal tenderness. There is no guarding or rebound. Musculoskeletal: General: Normal range of motion. Cervical back: Normal range of motion and neck supple. Legs: Comments: Left calf tenderness Skin: General: Skin is warm and dry. Neurological: Mental Status: She is alert and oriented to person, place, and time. Cranial Nerves: No cranial nerve deficit. Sensory: No sensory deficit. Psychiatric: Behavior: Behavior normal. Thought Content: Thought content normal. Judgment: Judgment normal. Labs Lab Results CBC WITH DIFF - Abnormal Result Value Ref Range WBC 8.77 4.30 - 11.10 10*3/?L RBC 4.76 3.93 - 5.25 10*6/?L HGB 14.8 11.6 - 15.0 g/dL HCT 43.2 35.7 - 45.2 % MCV 90.8 80.6 - 95.5 fL MCH 31.1 25.9 - 32.8 pg MCHC 34.3 31.6 - 35.1 g/dL RDW-SD 42.9 39.0 - 49.9 fL RDW-CV 13.0 12.0 - 15.5 % PLT 196 166 - 358 10*3/?L MPV 10.0 9.5 - 12.9 fL NRBC/100 WBC 0.0 0.0 - 10.0 /100 WBCs NRBC x10 3 <0.01 10*3/?L GRAN MAT (NEUT) % 78.4 % IMM GRAN % 0.50 % LYMPH % 11.7 % MONO % 8.1 % EOS % 0.8 % BASO % 0.5 % GRAN MAT x10 3 (ANC) 6.88 1.88 - 7.09 10*3/uL IMM GRAN x10 3 0.04 0.00 - 0.06 10*3/uL LYMPH x10 3 1.03 (*) 1.32 - 3.29 10*3/uL MONO x10 3 0.71 0.33 - 0.92 10*3/uL EOS x10 3 0.07 0.03 - 0.39 10*3/uL BASO x10 3 0.04 0.01 - 0.07 10*3/uL COMP. METABOLIC PANEL (95971) - Abnormal NA 134 (*) 135 - 145 mmol/L K 3.8 3.5 - 5.0 mmol/L CL 98 98 - 108 mmol/L CO2 TOTAL 28 23 - 31 mmol/L AGAP 8 2 - 16 BUN 15 7 - 23 mg/dL GLUCOSE 131 (*) 70 - 110 mg/dL CREATININE 0.67 0.50 - 1.04 mg/dL TOTAL BILI 1.6 (*) 0.1 - 1.1 mg/dL CALCIUM 9.7 8.6 - 10.6 mg/dL T PROTEIN 8.2 6.3 - 8.2 g/dL ALBUMIN 4.5 3.5 - 5.0 g/dL ALK PHOS 93 34 - 122 U/L ALTv 21 5 - 35 U/L AST(SGOT) 35 13 - 40 U/L eGFR 95.9 mL/min/1.73m2 URINALYSIS - Abnormal APPEARANCE Clear Clear COLOR Yellow Yellow PH 6.0 4.8 - 8.0 SP GRAVITY 1.010 1.003 - 1.030 GLU U QUAL >1000 mg/dL (*) Negative BLOOD Negative Negative KETONES Negative Negative PROTEIN Negative Negative UROBILIN 0.2 mg/dL 0-1.0 mg/dL BILIRUBIN Negative Negative NITRITE Negative Negative LEUK FRANNIE Negative Negative RBC/HPF 0 0 - 3 HPF WBC/HPF 0 0 - 5 HPF BACTERIA Negative Negative N-TERMINAL PRO-BNP - Abnormal NT-proBNP 1,360 (*) <=125 pg/mL INFLUENZA A/B RSV COVID NAAT - Abnormal Influenza A NAAT Negative Negative Influenza B NAAT Negative Negative RSV by PCR Negative Negative SARS-CoV-2 NAAT Positive (*) Negative MAGNESIUM - Abnormal MAGNESIUM 1.6 (*) 1.7 - 2.4 mg/dL LIPASE - Normal LIPASE 100 0 - 220 U/L TROPONIN I - Normal TROPONIN I 0.007 <=0.034 ng/mL RAPID STREP SCREEN FOR GROUP A - Normal Molecular Strep Negative Negative THROAT CULTURE LAB ONLY SARS-COV-2 SEQUENCING GLYCOSYLATED HEMOGLOBIN (A1C) Imaging No orders to display Orders and Treatments Orders Placed This Encounter Procedures Critical Care CBC WITH DIFF COMP. METABOLIC PANEL (47727) URINALYSIS LIPASE TROPONIN I N-TERMINAL PRO-BNP Influenza A B RSV COVID NAAT Rapid Strep Screen For Group A Magnesium Throat Culture Lab Only COVID Interpretation Lab Only Sars-Cov-2 Sequencing CBC with Differential Basic Metabolic Panel (NA, K, CL, CO2, GLUCOSE, BUN, CREATININE, CA) Glycosylated Hemoglobin (A1C) Orders Placed This Encounter Medications acetaminophen (TYLENOL) tablet 975 mg ondansetron (ZOFRAN (PF)) injection 4 mg NaCl 0.9% (NS) bolus infusion 1,000 mL magnesium sulfate in D5W 1 gram/100 mL RTU IV Piggyback 1 g amiodarone 150 mg/100 mL (NEXTERONE) RTU infusion 150 mg FOLLOWED BY Linked Order Group amiodarone (CORDARONE) 900 mg in D5W 500 mL infusion amiodarone (CORDARONE) 900 mg in D5W 500 mL infusion enoxaparin (LOVENOX) injection 40 mg acetaminophen (TYLENOL) tablet 650 mg traMADoL (ULTRAM) tablet 50 mg ondansetron (ZOFRAN (PF)) injection 4 mg dextrose 50 % in water (D50W) injection 25 mL glucagon HCL injection 1 mg Sliding Scale Insulin-Regular Procedures MDM Patient was evaluated for an emergency medical condition related to Fever, Headache, and Cough Diagnoses considered but not limited to: FLU COVID Labs:were ordered, and resulted, any relevant abnormalities were considered. Abnormal Labs Reviewed CBC WITH DIFF - Abnormal; Notable for the following components: Result Value LYMPH x10 3 1.03 (*) All other components within normal limits COMP. METABOLIC PANEL (72974) - Abnormal; Notable for the following components: NA 134 (*) GLUCOSE 131 (*) TOTAL BILI 1.6 (*) All other components within normal limits URINALYSIS - Abnormal; Notable for the following components: GLU U QUAL >1000 mg/dL (*) All other components within normal limits N-TERMINAL PRO-BNP - Abnormal; Notable for the following components: NT-proBNP 1,360 (*) All other components within normal limits Narrative: Positive: Heart Failure Likely INFLUENZA A/B RSV COVID NAAT - Abnormal; Notable for the following components: SARS-CoV-2 NAAT Positive (*) All other components within normal limits MAGNESIUM - Abnormal; Notable for the following components: MAGNESIUM 1.6 (*) All other components within normal limits Imaging:This is a teaching institution and preliminary studies are read by physicians in training. A final read by a radiologist will be confirmatory of preliminary studies or may include addenda. A reasonable attempt will be made to contact the patient or family to communicate findings if necessary. ED Course as of 04/25/242326 [place] Apr 25, [id number] Bed requested [DN] ED Course User Index [DN] Daniele Maharaj MD Diagnosis/Impression as of 04/25/242326 Flu-like symptoms Hypomagnesemia V-tach COVID AdmissionCare Guideline: Ventricular Arrhythmias - INPT, Inpatient Based on the indications selected for the patient, the bed status of Inpatient was determined to be MET The following indications were selected as present at the time of evaluation of the patient: - Clinical Indications for Admission to Inpatient Care - Admission is indicated for 1 or more of the following: - Continuous ECG monitoring needed (eg, drug initiation or adjustment requiring monitoring beyond observation care, ventricular tachycardia persists or recurs) AdmissionCare documentation entered by: Daniele Maharaj [facility] [employer], edition, Copyright ? 2023 [facility] [employer] All Rights Reserved. [id number]:24:27-05:00 Medical Decision Making Problems Addressed: COVID: acute illness or injury Flu-like symptoms: acute illness or injury Hypomagnesemia: acute illness or injury V-tach: acute illness or injury Amount and/or Complexity of Data Reviewed Labs: ordered. Decision-making details documented in ED Course. Radiology: ordered and independent interpretation performed. Decision-making details documented in ED Course. ECG/medicine tests: ordered and independent interpretation performed. Decision-making details documented in ED Course. Risk OTC drugs. Prescription drug management. Decision regarding hospitalization. Pulse Oximetry: is not hypoxic. Interpreted. Reassessment:stable Communication with railroad design consultant: None. Limitations to patient care and compliance: none. Plan & Summary: The patient is a 68-year-old female who presents for flulike symptoms. She is positive for COVID. She has a history of A-fib and she has had runs of nonsustained V. tach here in the emergency department. She is not hypoxic or tachypneic. She was placed on amiodarone bolus and drip. EKG demonstrates rate controlled A-fib she is also hypomagnesemic was given magnesium. Hematological studies are within acceptable range. US LLE negative for DVT The patient will require inpatient management. Sherrie Hernandez is a 68 year old female presenting for complaint(s) listed within the note. Admitted to . Case discussed and level of care determined with admitting provider. History, physical exam findings, results of visit, diagnosis, medication regimens and plan of future care have been considered. Additional MDM may be found in the ED course. Vital signs were rechecked before final disposition and determined to be expected for patient's clinical condition.. Disposition & Follow Up ED Disposition ED Disposition Admit - Observation Condition -- Comment Treatment Team: [facility] [[id number]] Patient's Medications START taking these medications No medications on file CONTINUE taking these medications which have NOT CHANGED ALENDRONATE 70 MG TABLET Take 1 tablet by mouth weekly. APIXABAN 5 MG TABLET Take 1 tablet by mouth 2 (two) times daily. ATORVASTATIN 40 MG TABLET Take 1 tablet by mouth at bedtime. CALCIUM CARBONATE-VITAMIN D3 1,000 MG(2,500 MG)-800 UNIT TAB Take 1 Tab by mouth daily. CITALOPRAM 10 MG TABLET Take 1 tablet in the morning. COENZYME Q10 100 MG SOFTGEL Take 1 capsule by mouth in the morning. CYCLOBENZAPRINE 10 MG TABLET Take 1 tablet by mouth 3 (three) times daily as needed for Muscle Spasms. Also for pain, spine. DICLOFENAC 75 MG EC TABLET Take 1 tablet by mouth in the morning and 1 tablet in the evening. Take with meals. DILTIAZEM 30 MG TABLET Take 1 tablet by mouth every 8 (eight) hours. EMPAGLIFLOZIN 25 MG TAB Take by mouth daily. ESTRADIOL 0.01 % (0.1 MG/GRAM) VAGINAL CREAM Apply a thin layer to affected area twice per week GLIPIZIDE 5 MG TABLET Take 1 tablet by mouth in the morning. LISINOPRIL 20 MG TABLET TAKE ONE TABLET BY MOUTH EVERY MORNING AND 1 TABLET IN EVENING OMEPRAZOLE 20 MG CAPSULE Take 1 capsule in the morning and 1 capsule in the evening. START taking Modified Medications as Prescribed No medications on file STOP taking these medications No medications on file Future Appointments In 4 weeks Alan Mcclain MD [facility] Neurology, [place] DBB, UDAY Maharaj Jr., MD Clinical [facility] Emergency Department [employer] D[employer] is used frequently and may produce errors. Promptly contact for obvious discrepancies. Daniele Maharaj MD 04/25/24 2327 Daniele Maharaj MD 04/26/24 0028 [facility] 2024-04-25 20:31:00 AdmissionCare Guideline: Ventricular Arrhythmias - INPT, Inpatient Based on the indications selected for the patient, the bed status of Inpatient was determined to be MET The following indications were selected as present at the time of evaluation of the patient: - Clinical Indications for Admission to Inpatient Care - Admission is indicated for 1 or more of the following: - Continuous ECG monitoring needed (eg, drug initiation or adjustment requiring monitoring beyond observation care, ventricular tachycardia persists or recurs) AdmissionCare documentation entered by: Daniele Maharaj [facility], 28th edition, Copyright ? 2023 [facility] All Rights Reserved. [id number]:24:27-05:00 [facility] 2024-04-09 09:24:21 Received referral from [facility] to Dr Mcclain faxed to ref team received confirmation filed in cabinet T Deirdre Edgar [facility] 2023-09-12 15:57:29 Received medical records request from Dr Santos office will sent via fax to [facility] Records if any questions regarding this request reach out to [facility]
--- NOTE | 2024-10-31 20:52 | RAD REPORT ---
EXAM: CT brain without contrast HISTORY: CONFUSED COMPARISON: 02/19/2022 TECHNIQUE: Multiple contiguous axial images were obtained and a CT of the brain without contrast. Sag ittal and coronal reformats were performed. One or more of the following dose reduction techniques were used: Automated exposure control, adjust ment of the mA and/or kV according to patient size, and/or iterative reconstruction. FINDINGS: No evidence of hydrocephalus, intracranial hemorrhage, or extra-axial fluid collection. 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 No evidence of midline sh ift or areas of brain edema. The calvarium is intact. The visualized paranasal sinuses and mastoid air cells are essentially clear . IMPRESSION: No evidence of acute intracranial abnormality.
[2024-10-31 20:54] LABS: Absolute Basophils 0.1 K/uL (0-0.5); Absolute Eosinophils 0.1 K/uL (0-0.5); Absolute Lymphocytes (CBC) 1.9 K/uL (0.7-4.9); Absolute Monocytes 0.7 K/uL (0.1-1.3); Absolute Neutrophil 6.1 K/uL (1.8-8.0); Eosinophils % 0.7 % (0-4.4); Hematocrit 44.8 % (36.0-45.0); Hemoglobin 15.1 g/dL (12.0-15.0); Lymphocytes % 21.6 % (15.3-44.8); MCH 30.6 pg (27.0-35.0); MCHC 33.7 g/dL (32.0-36.0); MCV 90.9 fL (80-100); MPV 7.8 fL (7.6-11.3); Monocytes % 8.4 % (3.3-12.3); Neutrophils % 68.3 % (41.7-73.7); Nucleated Red Blood Cells % 0.2 % (0-0); Platelets 245 thou/uL (152-406); RBC Red Blood Cell Count 4.93 M/uL (3.86-4.86); Red Cell Distribution Width 13.7 % (12.1-15.2)
[2024-10-31 21:01] LABS: PT Prothrombin Time 11.9 SECONDS (10.0-13.0); Protime INR 1.05
[2024-10-31 21:21] LABS: Albumin 3.4 g/dL (3.4-5.0); Albumin/Globulin Ratio 0.9 (1.1-1.8); Anion Gap 7.7 mEq/L (5.0-15.0); Bilirubin Direct 0.2 mg/dL (0-0.2); Bilirubin Indirect, Calculated 1.1 mg/dL (0.2-0.8); Bilirubin Total 1.3 mg/dL (0.2-1.0); Globulin 3.9 g/dL (2.3-3.5); Potassium 3.7 mEq/L (3.5-5.1); Protein, Total 7.3 g/dL (6.4-8.2)
[2024-10-31 21:36] LABS: Troponin High Sensitivity 6286.7 pg/mL (<58.9)
--- NOTE | 2024-10-31 21:37 | RAD REPORT ---
EXAMINATION: ONE VIEW CHEST XR CLINICAL INDICATION: PALPITATIONS TECHNIQUE: Frontal chest projection is submitted. Examination is limited by patient positioning and t echnique. COMPARISON: 09/16/2024 FINDINGS: The lungs are well inflated and clear. The heart is upper limit of normal in size. No displaced fract ures identified. Dual lead pacer device. Right-sided port catheter is tip in SVC. IMPRESSION: No acute intrathoracic abnormalities.
--- NOTE | 2024-10-31 21:43 | ER ---
Nurse's Notes [facility] Name: Edith Hernandez Age: 69 yrs Sex: Female : 1955 Arrival Date: 10/31/2024 Time: 19:07 Bed 14 Private MD: Diagnosis: Subsequent non-ST elevation (NSTEMI) myocardial infarction Presentation: 10/31 19:21 Chief complaint: Patient states: Pain in upper right chest radiating down the right arm bm8 started this morning at 0130, got a little better and went back to bed. Now c/o headaches and diarrhea with palpitations sporadically. Coronavirus screen: At this time, the client does not indicate any symptoms associated with coronavirus-19. Ebola Screen: Patient negative for fever greater than or equal to 101.5 degrees Fahrenheit, and additional compatible Ebola Virus Disease symptoms Patient denies exposure to infectious person. Patient denies travel to an Ebola-affected area in the 21 days before illness onset. No symptoms or risks identified at this time. Initial Sepsis Screen: Does the patient meet any 2 criteria? No. Patient's initial sepsis screen is negative. Does the patient have a suspected source of infection? No. Patient's initial sepsis screen is negative. Risk Assessment: Do you want to hurt yourself or someone else? Patient reports no desire to harm self or others. Onset of symptoms was October 31, 2024 at 01:30. 19:21 Method Of Arrival: Ambulatory bm8 19:21 Acuity: ZHANG 2 bm8 Triage Assessment: 19:23 General: Appears in no apparent distress. comfortable, Behavior is calm, cooperative, bm8 appropriate for age. Pain: Complains of pain in chest and left arm, and head Pain radiates to left arm Pain currently is 10 out of 10 on a pain scale. EENT: No deficits noted. No signs and/or symptoms were reported regarding the EENT system. Neuro: No deficits noted. Level of Consciousness is awake, alert, obeys commands, Oriented to person, place, time, situation, Appropriate for age. Cardiovascular: Reports chest pain, Heart tones S1 S2 present Capillary refill < 3 seconds in bilateral fingers Patient's skin is warm and dry. Respiratory: Airway is patent Trachea midline Breath sounds are clear bilaterally. GI: Abdomen is flat, non-distended, Reports diarrhea. : No signs and/or symptoms were reported regarding the genitourinary system. Derm: No signs and/or symptoms reported regarding the dermatologic system. Musculoskeletal: No signs and/or symptoms reported regarding the musculoskeletal system. Historical: - Allergies: : No Known Allergies; bm8 - Home Meds: Insulin: Novolin R Sub-Q [Active]; lisinopril Oral [Active]; unknow hypertension bm8 [Active]; - PMHx: Atrial fibrillation; Cancer; Cerebrovascular accident; diabetes mellitus; Hypertensive bm8 disorder; Stroke Left side defecit; - PSHx: 19: section; hysterectomy; pacemaker; right elbow repair (pacemaker); bm8 - Immunization history:: Adult Immunizations up to date. - Infectious Disease History:: Denies. - Social history:: Smoking status: Patient denies any tobacco usage or history of. Screenin:32 [facility] ED Fall Risk Assessment (Adult) History of falling in the last 3 months, kj2 including since admission No falls in past 3 months (0 pts) Confusion or Disorientation No (0 pts) Intoxicated or Sedated No (0 pts) Impaired Gait No (0 pts) Mobility Assist Device Used No (0 pt) Altered Elimination No (0 pt) Score/Fall Risk Level 0 - 2 = Low Risk Maintained a safe environment, Hourly rounding (assess needs \T\ fall precautionary measures) done. Abuse screen: Denies threats or abuse. Denies injuries from another. Nutritional screening: No deficits noted. Tuberculosis screening: No symptoms or risk factors identified. Assessment: 20:15 General: Appears in no apparent distress. Behavior is calm, cooperative. Pain: kj2 Complains of pain in left arm Pain currently is 4 out of 10 on a pain scale. Neuro: Level of Consciousness is awake, alert, Oriented to person, place, time, situation. Cardiovascular: Patient's skin is warm and dry. Respiratory: Airway is patent Respiratory effort is even, unlabored. GI: No signs and/or symptoms were reported involving the gastrointestinal system. : No signs and/or symptoms were reported regarding the genitourinary system. 22:00 General: Appears in no apparent distress. comfortable, Behavior is calm, cooperative. al5 Pain: Denies pain. Neuro: Level of Consciousness is awake, alert, Oriented to person, place, time, situation. Cardiovascular: Capillary refill < 3 seconds Patient's skin is warm and dry. Respiratory: Airway is patent Respiratory effort is even, unlabored, Respiratory pattern is regular, symmetrical. GI: No signs and/or symptoms were reported involving the gastrointestinal system. : No signs and/or symptoms were reported regarding the genitourinary system. EENT: No signs and/or symptoms were reported regarding the EENT system. Derm: Skin is intact, is healthy with good turgor, Skin is pink, warm \T\ dry. normal. Musculoskeletal: No signs and/or symptoms reported regarding the musculoskeletal system. Vital Signs: 19:21 BP 156 / 74; Pulse 77; Resp 18; Temp 98.3; Pulse Ox 98% ; Weight 77.11 kg; Height 5 ft. bm8 6 in. ; Pain 10/10; 22:00 BP 154 / 80; Pulse 68; Resp 16; Pulse Ox 97% on R/A; al5 19:21 Body Mass Index 27.44 (77.11 kg, 167.64 cm) bm8 19:21 Pain Scale: Adult bm8 ED Course: 19:12 Patient arrived in ED. gm2 19:20 Samantha Berman MD is Attending Physician. sp3 19:23 Triage completed. bm8 19:23 Arm band placed on right wrist. bm8 20:15 Patient has correct armband on for positive identification. Bed in low position. Call kj2 light in reach. Provided Education on: call light. 20:19 Alejandra Dennison, RN is Primary Nurse. kj2 20:41 CT Head Brain wo Cont In Process Unspecified. EDMS 21:17 Inserted saline lock: 20 gauge in right antecubital area, using aseptic technique. af3 Blood collected. Flushed with 10 mL NS. 21:22 XRAY Chest (1 view) In Process Unspecified. EDMS 21:43 Prince Florez MD is Hospitalizing Provider. sp3 23:52 No provider procedures requiring assistance completed. Patient admitted, IV remains in al5 place. Administered Medications: No medications were administered Medication: 20:33 VIS not applicable for this client. kj2 Outcome: 21:43 Decision to Hospitalize by Provider. sp3 23:52 Admitted to ER Hold. Please see [facility] for further documentation. al5 23:52 Condition: stable 23:52 Instructed on the need for admit, 11/01 09:10 Patient left the ED. ph Signatures: Dispatcher [employer] EDMS oLrene Cuevas, RN RN ph Samantha Berman MD MD sp3 Aubree Pate gm2 Shawn Corrales RN RN bm8 Chaparrita Moctezuma RN RN al5 Alejandra Dennison RN RN kj2 Cristiane Vaughan3 Corrections: (The following items were deleted from the chart) 10/31 23:53 23:52 BP 154 / 80; Pulse 68bpm; Resp 16bpm; Pulse Ox 97% RA; al5 al5
--- NOTE | 2024-10-31 21:43 | EDPHYS ---
Physician Documentation [facility] Name: Edith Hernandez Age: 69 yrs Sex: Female : 1955 Arrival Date: 10/31/2024 Time: 19:07 Bed 14 Private MD: ED Physician Samantha Berman HPI: 10/31 20:13 This 69 yrs old Female presents to ER via Ambulatory with complaints of sp3 Palpitations, Arm Pain, confusion. 20:13 69-year-old female with history of atrial fibrillation, prior CVA, diabetes, sp3 hypertension, who is on Eliquis presents to the ED with a now resolved left shoulder, left arm and chest pain that started around 2 AM today and resolved by 5 AM today. Patient states she wanted to "be sure" and therefore came into the ED for evaluation. During the episode she states that she also "got confused". All symptoms are now resolved. She denies any ongoing recurrent headache, neck pain, fever, chest pain, shortness of breath, back pain, abdominal pain, nausea, vomiting, diarrhea, focal neurological deficit, speech abnormality, ongoing confusion or memory loss, or any other signs or symptoms on ROS at this time.. Historical: - Allergies: 19:23 No Known Allergies; bm8 - Home Meds: 19:23 Insulin: Novolin R Sub-Q [Active]; lisinopril Oral [Active]; unknow hypertension bm8 [Active]; - PMHx: 19:23 Atrial fibrillation; Cancer; Cerebrovascular accident; diabetes mellitus; Hypertensive bm8 disorder; Stroke Left side defecit; - PSHx: 19:23 section; hysterectomy; pacemaker; right elbow repair (pacemaker); bm8 - Immunization history:: Adult Immunizations up to date. - Infectious Disease History:: Denies. - Social history:: Smoking status: Patient denies any tobacco usage or history of. ROS: 20:14 Constitutional: Negative for fever, chills, and weight loss, Eyes: Negative for injury, sp3 pain, redness, and discharge, ENT: Negative for injury, pain, and discharge, Neck: Negative for injury, pain, and swelling, Respiratory: Negative for shortness of breath, cough, wheezing, and pleuritic chest pain, Abdomen/GI: Negative for abdominal pain, nausea, vomiting, diarrhea, and constipation, Back: Negative for injury and pain, MS/Extremity: Negative for injury and deformity, Skin: Negative for injury, rash, and discoloration, Psych: Negative for depression, anxiety, suicide ideation, homicidal ideation, and hallucinations, Allergy/Immunology: Negative for hives, rash, and allergies, Endocrine: Negative for neck swelling, polydipsia, polyuria, polyphagia, and marked weight changes, 20:14 All other systems are negative, Exam: 20:15 Constitutional: This is a well developed, well nourished patient who is awake, alert, sp3 and in no acute distress. Head/Face: Normocephalic, atraumatic. Eyes: Pupils equal round and reactive to light, extra-ocular motions intact. Lids and lashes normal. Conjunctiva and sclera are non-icteric and not injected. Cornea within normal limits. Periorbital areas with no swelling, redness, or edema. ENT: Nares patent. No nasal discharge, no septal abnormalities noted. External auditory canals are clear. Oropharynx with no redness, swelling, or masses, exudates, or evidence of obstruction, uvula midline. Mucous membranes moist. Neck: Trachea midline, no thyromegaly or masses palpated, and no cervical lymphadenopathy. Supple, full range of motion without nuchal rigidity, or vertebral point tenderness. No Meningismus. Chest/axilla: Normal chest wall appearance and motion. Nontender with no deformity. No lesions are appreciated. Cardiovascular: Regular rate and rhythm with a normal S1 and S2. No gallops, murmurs, or rubs. Normal PMI, no JVD. No pulse deficits. Respiratory: Lungs have equal breath sounds bilaterally, clear to auscultation and percussion. No rales, rhonchi or wheezes noted. No increased work of breathing, no retractions or nasal flaring. Abdomen/GI: Soft, non-tender, with normal bowel sounds. No distension or tympany. No guarding or rebound. No evidence of tenderness throughout. Back: No spinal tenderness. No costovertebral tenderness. Full range of motion. Skin: Warm, dry with normal turgor. Normal color with no rashes, no lesions, and no evidence of cellulitis. MS/ Extremity: Pulses equal, no cyanosis. Neurovascular intact. Full, normal range of motion. Neuro: Awake and alert, GCS 15, oriented to person, place, time, and situation. Cranial nerves II-XII grossly intact. Motor strength 5/5 in all extremities. Sensory grossly intact. Cerebellar exam normal. Normal gait. Psych: Awake, alert, with orientation to person, place and time. Behavior, mood, and affect are within normal limits. 20:15 ECG was reviewed by the Attending Physician. EKG demonstrates normal sinus rhythm at 80 bpm with normal intervals, normal QRS, normal axis, nonspecific diffuse ST/T changes without evidence of acute ischemia. Vital Signs: 19:21 BP 156 / 74; Pulse 77; Resp 18; Temp 98.3; Pulse Ox 98% ; Weight 77.11 kg; Height 5 ft. bm8 6 in. ; Pain 10/10; 22:00 BP 154 / 80; Pulse 68; Resp 16; Pulse Ox 97% on R/A; al5 19:21 Body Mass Index 27.44 (77.11 kg, 167.64 cm) bm8 19:21 Pain Scale: Adult bm8 MDM: 19:20 Medical Screening Exam initiated sp3 20:15 Data reviewed: vital signs, nurses notes, lab test result(s), EKG, radiologic studies. 3 ED course: 69-year-old female with history of CVA and no history of CAD presents to the ED with a now resolved left-sided chest pain. Patient is already on Eliquis. Differential diagnosis includes acute coronary syndrome, angina, skeletal pain, GI pathology, among others. Given duration of symptoms, single troponin likely will rule out any cardiac injury especially given the fact that her pain is now resolved. Will also obtain CT scan of the head given her prior brief confusion. Disposition pending workup and patient course.. 21:42 ED course: Patient with NSTEMI with troponin greater than 6000. I discussed with [facility] cardiology who wants patient n.p.o. and Eliquis held. Patient will be admitted to internal medicine. No active chest pain currently. Normal vital signs.. 10/31 20:07 Order name: Basic Metabolic Panel; Complete Time: 21:38 3 10/31 20:07 Order name: CBC with Diff; Complete Time: 21:38 3 10/31 20:07 Order name: LFT's; Complete Time: 21:38 3 10/31 20:07 Order name: Magnesium; Complete Time: 21:38 3 20:07 Order name: NT PRO-BNP; Complete Time: 21:38 sp3 10/31 20:07 Order name: PT-INR; Complete Time: 21:38 sp3 10/31 20:07 Order name: Troponin HS; Complete Time: 21:38 sp3 11/01 00:38 Order name: Magnesium EDMS 11/01 00:38 Order name: Phosphorus EDMS 11/01 00:38 Order name: Basic Metabolic Panel EDMS 11/01 00:38 Order name: Basic Metabolic Panel EDMS 11/01 00:38 Order name: CBC with Automated Diff EDMS 11/01 00:38 Order name: CBC with Automated Diff EDMS 11/01 00:38 Order name: Lipid Profile EDMS 11/01 00:38 Order name: Lipid Profile EDMS 11/01 00:43 Order name: Hemoglobin A1c EDMS 10/31 20:07 Order name: XRAY Chest (1 view); Complete Time: 21:38 sp3 10/31 20:17 Order name: CT Head Brain wo Cont; Complete Time: 21:38 sp3 11/01 00:38 Order name: Echo with Doppler EDMS 11/01 00:38 Order name: Physical Therapy Consult EDMS 10/31 20:07 Order name: Cardiac monitoring; Complete Time: 21:41 sp3 10/31 20:07 Order name: EKG - Nurse/Tech; Complete Time: 21:41 sp3 10/31 20:07 Order name: IV Saline Lock; Complete Time: 21:17 sp3 10/31 20:07 Order name: Labs collected and sent; Complete Time: 21:17 sp3 10/31 20:07 Order name: O2 Per Protocol; Complete Time: 21:17 sp3 10/31 20:07 Order name: O2 Sat Monitoring; Complete Time: 21:17 sp3 Administered Medications: No medications were administered Disposition Summary: 10/31/24 21:43 Hospitalization Ordered Notes: Hospitalization Status: Inpatient Admission sp3 Provider: Prince sierra Florez Condition: Stable sp3 Problem: new sp3 Symptoms: have worsened sp3 Bed/Room Type: Standard sp3 Location: Telemetry/MedSurg (Inpatient)(11/01/24 07:17) bd Room Assignment: [facility](11/01/24 07:17) bd Diagnosis - Subsequent non-ST elevation (NSTEMI) myocardial infarction sp3 Forms: - Medication Reconciliation Form sp3 - SBAR form sp3 - Leadership Thank You Letter sp3 Signatures: Dispatcher [employer] Nicole Day Cindy, RN RN cg Samantha Berman MD MD sp3 Shawn Corrales RN RN bm8 Corrections: (The following items were deleted from the chart) 22:18 21:43 Telemetry/MedSurg (Inpatient) sp3 cg 22:18 21:43 sp3 cg 11/01 07:17 03 22:18 [facility] ER HOLD cg bd 11/01 07:17 10/31 22:18 ERHOLD- cg bd
[2024-11-01] MEDS ORDERED: ONDANSETRON 4 MG/2 ML VIAL IV PRN (00:34)
--- NOTE | 2024-11-01 00:41 | P.HP ---
Certification for Inpatient Patient admitted to: Inpatient With expected LOS: >2 Midnights Practitioner: I am a practitioner with admitting privileges, knowledge of patient current condition, hospital course, and medical plan of care. Services: Services provided to patient in accordance with Admission requirements found in Title 42 Section 412.3 of the Code of Federal Regulations Patient History Date of Service: 11/01/24 Reason for admission: NSTEMI History of Present Illness: Patient is a 69-year-old female with a past medical history of hypertension, CVA and atrial fibrillation on Eliquis. She is being admitted for NSTEMI after she presented with left sided chest pain radiating to her left arm. Associated symptoms include altered mental status manifested by confusion. She has no nausea or vomiting, she has no shortness of breath or lower extremity edema. Her initial troponin was more than 6000. Cardiology has been notified. Patient to be kept n.p.o. for possible angiogram in the morning. Allergies No Known Allergies Allergy (Unverified 04/11/18 03:59) Home Medications: Alendronate [Fosamax*] 10 mg PO DAILY 11/01/24 Amlodipine [Norvasc*] 10 mg PO DAILY 11/01/24 Apixaban [Eliquis] 5 mg PO BID 11/01/24 Atorvastatin Calcium [Lipitor] 80 mg PO BEDTIME 11/01/24 Citalopram Hydrobromide [Celexa] 20 mg PO DAILY 11/01/24 Cyclobenzaprine [Flexeril*] 10 mg PO PRN 11/01/24 Dapagliflozin Propanediol [Farxiga] 10 mg PO DAILY 11/01/24 Ergocalciferol (Vitamin D2) [Vitamin D2] 50,000 units PO DAILY 11/01/24 Gabapentin 100 mg PO PRN 11/01/24 dilTIAZem HCL [Diltiazem 12Hr ER] 60 mg PO DAILY 11/01/24 glipiZIDE [Glipizide] 5 mg PO BID 11/01/24 oxyBUTYnin chloride [Oxybutynin Chloride] 5 mg PO DAILY 11/01/24 Physical Examination - Physical Exam General: Acute distress HEENT: Atraumatic, Normocephalic Respiratory: Clear to auscultation bilaterally, Normal air movement Cardiovascular: No edema, Normal pulses, Regular rate/rhythm, Normal S1 S2 Neurological: Normal speech - Studies Laboratory Data (last 24 hrs) 10/31/24 10/31/24 10/31/24 20:35 20:35 20:35 WBC 8.90 Hgb 15.1 H Hct 44.8 Plt Count 245 PT 11.9 INR 1.05 Sodium 136 Potassium 3.7 BUN 13 Creatinine 1.00 Glucose 212 H Magnesium 2.0 Total Bilirubin 1.3 H AST 49 H ALT 25 Alkaline Phosphatase 94 Assessment and Plan - Problems (Diagnosis) (1) NSTEMI (non-ST elevated myocardial infarction) Current Visit: Yes Status: Acute (2) Atrial fibrillation Current Visit: Yes Status: Acute (3) CVA (cerebral vascular accident) Current Visit: Yes Status: Acute (4) Hypertension Current Visit: Yes Status: Acute (5) Diabetes mellitus Current Visit: Yes Status: Acute - Plan Assessment This is a 69-year-old female with hypertension, CVA and atrial fibrillation currently on Eliquis. She is being admitted for NSTEMI after she presented with chest pain. First troponin is more than 6000. Patient has no history of coronary artery disease. NSTEMI Atrial fibrillation Hypertension CVA Plan: Admit inpatient with telemetry Hold Eliquis N.p.o. for possible coronary angiogram in the morning As needed nitroglycerin for chest pain 2D echo - Advance Directives Does patient have a Living Will: No Does patient have a Durable POA for Healthcare: No
[2024-11-01 03:00] VITALS: BMI 27.4
[2024-11-01 04:50] LABS: Magnesium 2.1 mg/dL (1.6-2.4)
[2024-11-01] MEDS ORDERED: HEPARIN 10,000 UNIT/10 ML VIAL IV ONE (08:50)
[2024-11-01] MEDS ORDERED: LIDOCAINE 1% 20 ML MDV ONE (08:50)
[2024-11-01] MEDS ORDERED: HEPA 1000U/500MLS 2,000 UNIT/1,000 ML BAG IV ONE (08:50)
[2024-11-01] MEDS ORDERED: CLOPIDOGREL 75 MG TABLET ONE (08:51)
[2024-11-01] MEDS ORDERED: MIDAZOLAM HCL 2 MG/2 ML INJ ONE (08:51)
[2024-11-01] MEDS ORDERED: HEPARIN 5000 UNIT/ML 1 ML VIAL ONE (08:51)
[2024-11-01] MEDS ORDERED: ASPIRIN 325 MG TAB ONE (08:51)
[2024-11-01] MEDS ORDERED: ATROPINE SULF 1 MG/10 ML SYR IV ONE (08:51)
[2024-11-01] MEDS ORDERED: TICAGRELOR 90 MG TABLET PO ONE (08:51)
[2024-11-01] MEDS ORDERED: FENTANYL CITR 100 MCG/2 ML ONE (08:52)
[2024-11-01] MEDS: ASPIRIN EC 81 MG TAB PO SCH (09:00)
--- NOTE | 2024-11-01 09:03 | P.CNS ---
Date of Consult: 11/01/24 Chief Complaint: NSTEMI History of Present Illness: Patient with PMH of atrial fibrillatuion, pacemaker placement, HTN, HLD, DM presented with chest pain, pressure in nature that has been going on since friday radiated to her left arm, no other cardiac symptoms. Allergies No Known Allergies Allergy (Verified 11/01/24 03:10) Home medications list reviewed: Yes Home Medications: Alendronate [Fosamax*] 10 mg PO DAILY 11/01/24 Amlodipine [Norvasc*] 10 mg PO DAILY 11/01/24 Apixaban [Eliquis] 5 mg PO BID 11/01/24 Atorvastatin Calcium [Lipitor] 80 mg PO BEDTIME 11/01/24 Citalopram Hydrobromide [Celexa] 20 mg PO DAILY 11/01/24 Cyclobenzaprine [Flexeril*] 10 mg PO PRN 11/01/24 Dapagliflozin Propanediol [Farxiga] 10 mg PO DAILY 11/01/24 Ergocalciferol (Vitamin D2) [Vitamin D2] 50,000 units PO DAILY 11/01/24 Gabapentin 100 mg PO PRN 11/01/24 dilTIAZem HCL [Diltiazem 12Hr ER] 60 mg PO DAILY 11/01/24 glipiZIDE [Glipizide] 5 mg PO BID 11/01/24 oxyBUTYnin chloride [Oxybutynin Chloride] 5 mg PO DAILY 11/01/24 - Past Medical/Surgical History Diabetic: Yes -: diabetes -: hypertension -: atrial fibrillation -: cerebrovascular accident -: cancer - Social History Place of Residence: Home Review of Systems 10-point ROS is otherwise unremarkable Physical Examination General: Alert, In no apparent distress HEENT: Atraumatic, PERRLA, Mucous membr. moist/pink, EOMI, Sclerae nonicteric Neck: Supple, 2+ carotid pulse no bruit, No LAD, Without JVD or thyroid abnormality Respiratory: Clear to auscultation bilaterally, Normal air movement Cardiovascular: Regular rate/rhythm, Normal S1 S2 Gastrointestinal: Normal bowel sounds, No tenderness Musculoskeletal: No tenderness Integumentary: No rashes Neurological: Normal gait, Normal speech, Normal tone, Normal affect Lymphatics: No axilla or inguinal lymphadenopathy Laboratory Data (last 24 hrs) 10/31/24 10/31/24 10/31/24 20:35 20:35 20:35 WBC 8.90 Hgb 15.1 H Hct 44.8 Plt Count 245 PT 11.9 INR 1.05 Sodium 136 Potassium 3.7 BUN 13 Creatinine 1.00 Glucose 212 H Magnesium 2.0 Total Bilirubin 1.3 H AST 49 H ALT 25 Alkaline Phosphatase 94 - Problems (1) Atrial fibrillation Current Visit: Yes Status: Acute Plan: continue diltazem hold eliquis for coronary angiogram monitor on tele (2) Hypertension Current Visit: Yes Status: Acute Plan: continue her home medications at this point. (3) NSTEMI (non-ST elevated myocardial infarction) Current Visit: Yes Status: Acute Plan: NPO for coronary angiogram ASA 81 mg daily Lipitor 80 mg daily get echo
[2024-11-01] MEDS ORDERED: NA CHLORIDE 0.9% 500 ML ONE (09:37)
[2024-11-01] MEDS ORDERED: NITROGLYCERIN/D5W 50 MG/250 ML BTL IV ONE (09:46)
[2024-11-01] MEDS ORDERED: HYDRALAZINE HCL 20 MG/ML VIAL ONE (10:14)
--- NOTE | 2024-11-01 12:04 | EKG ---
Test Date: 2024-10-31 Test Time: 19:18:06 Air Traffic Systems Technician: BLAIR MEASUREMENT RESULTS: Intervals: Rate: 79 IN: 164 QRSD: 80 QT: 378 QTc: 433 [place]: P: 31 IN: 164 QRS: 27 T: 3 INTERPRETIVE STATEMENTS: Sinus rhythm with premature supraventricular complexes Nonspecific ST and T wave abnormality Abnormal ECG Compared to ECG 09/16/2024 18:44:07 Atrial premature complex(es) now present ST (T wave) deviation now present Atrial-paced complex(es) or rhythm no longer present Electronically Signed On 11-01-24 12:02:31 HEARING AIDE TECHNICIAN by Al Rollins
[2024-11-01] MEDS: ACETAMINOPHEN 500 MG TAB PO ONE (17:21)
[2024-11-01] MEDS: ATORVASTATIN 20 MG TAB PO SCH (21:30)
[2024-11-01] MEDS: TICAGRELOR 90 MG TABLET PO SCH (21:30)
[2024-11-01] MEDS: KETOROLAC 30 MG/ML INJ IV ONE (21:30)
--- NOTE | 2024-11-01 21:49 | OP ---
Date of Procedure: 11/01/2024 Surgeon: Al Rollins Procedures Performed: 1. Selective coronary angiogram. 2. Percutaneous coronary intervention of the right coronary artery with Synergy 3.5 x 38 mm drug-elut ing stent. Indication For Procedure: [id number] DE. Complications: None. Estimated Blood Loss: Less than 50 cc. Access: Right radial, closed by TR band. Sedation Time: 30 minutes with 2 of Versed and 100 of fentanyl. Description Of Procedure: After risks, benefits, and alternatives were explained to the patient, the patient agreed to proceed with procedure and signed informed consent. The patient was brought back to the asset availability leader, and prepped and draped in a sterile fashion. Time-out was performed. Sedation was administered. Next, right radial access was obtained using ultrasound-guided micropuncture technique . [place] 4 catheter was advanced over a J-wire to the aortic root. Selective angiogram was done usin g the same catheter. After that, catheter was exchanged for a JR4 guide. Heparin was administered. ACT was therapeutic. Runthrough wire was passed across the lesion. We pre-dilated the lesion with NC 3.0 mm balloon. Next, Synergy 3.5 x 38 mm drug-eluting stent was placed across the lesion, that w as postdilated with an NC 4.0 mm balloon. Final angiogram showed ANA-3 flow. Wires were removed. Sheath was removed. TR band was applied. Hemostasis was achieved, and the patient was moved back to recovery area in stable condition. Findings: 1. Left main: Normal. 2. LAD: Heavy calcified with proximal to mid diffuse 20% to 30% disease and mild luminal irregularit ies. 3. Left circ: Proximal mild luminal irregularities. It gives OM1 that has mild luminal irregulariti es, then continues as circ that got mid 60% disease before the origin of OM2 that got mild luminal ir regularities. 4. RCA: Dominant, proximal to mid diffuse calcified 60% to 70% disease, status post PCI as above and distal mild luminal irregularities. 5. RPDA: Mild luminal irregularities. Assessment: 1. Significant proximal to mid right coronary artery disease, status post percutaneous coronary inter vention with Synergy 3.5 x 38 mm drug-eluting stent. 2. Moderate left circ disease. Plan: 1. Aspirin 81 mg daily for life. 2. Brilinta 180 x1 was given in the asset availability leader, was switched to Plavix 75 mg daily as the patient is on Eliquis. 3. Outpatient evaluation of the circ disease with a stress test. LEIGHTON/DAILY Voice ID: [id number] Report ID: [id number]
[2024-11-02] MEDS: NITROGLYCERIN 0.4 MG/TAB SL PRN (00:11)
[2024-11-02 06:03] LABS: Absolute Basophils 0.1 K/uL (0-0.5); Absolute Eosinophils 0.2 K/uL (0-0.5); Absolute Lymphocytes (CBC) 2.1 K/uL (0.7-4.9); Absolute Monocytes 0.6 K/uL (0.1-1.3); Absolute Neutrophil 3.1 K/uL (1.8-8.0); Basophils % 1.1 % (0-1.3); Eosinophils % 3.3 % (0-4.4); Hematocrit 39.2 % (36.0-45.0); Hemoglobin 13.6 g/dL (12.0-15.0); Lymphocytes % 34.9 % (15.3-44.8); MCHC 34.7 g/dL (32.0-36.0); MCV 89.3 fL (80-100); MPV 7.9 fL (7.6-11.3); Monocytes % 10.5 % (3.3-12.3); Neutrophils % 50.2 % (41.7-73.7); Nucleated Red Blood Cells % 0.1 % (0-0); Platelets 229 thou/uL (152-406); RBC Red Blood Cell Count 4.39 M/uL (3.86-4.86); Red Cell Distribution Width 13.7 % (12.1-15.2)
[2024-11-02 06:08] LABS: Anion Gap 7.7 mEq/L (5.0-15.0); Potassium 3.7 mEq/L (3.5-5.1)
[2024-11-02 08:25] VITALS: O2SAT 99
[2024-11-02] MEDS: CLOPIDOGREL 75 MG TABLET PO SCH (09:23)
--- NOTE | 2024-11-02 11:00 | P.PN ---
Subjective Date of Service: 11/02/24 Chief Complaint: NSTEMI Subjective: No new changes, No C/O voiced, Tolerating diet, Ambulating, Improving Review of Systems 10-point ROS is otherwise unremarkable Physical Examination - Vital Signs Temperature: 98.3 F Blood Pressure: 153/73 Pulse: 66 Respirations: 16 Pulse Ox (%): 96 - Physical Exam General: Alert, In no apparent distress HEENT: Atraumatic, PERRLA, EOMI Neck: Supple, JVD not distended Respiratory: Clear to auscultation bilaterally, Normal air movement Cardiovascular: Regular rate/rhythm, Normal S1 S2 Gastrointestinal: Normal bowel sounds, No tenderness Musculoskeletal: No tenderness Integumentary: No rashes Neurological: Normal speech, Normal tone, Normal affect Lymphatics: No axilla or inguinal lymphadenopathy - Studies Medications List Reviewed: Yes Assessment And Plan - Current Problems (Diagnosis) (1) Atrial fibrillation Current Visit: Yes Status: Acute Plan: continue diltazem resume eliquis 5 mg po BID monitor on tele (2) Hypertension Current Visit: Yes Status: Acute Plan: continue her home medications at this point. 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
[2024-11-02] MEDS ORDERED: CYCLOBENZAPRINE 10 MG TAB PO PRN (11:13)
--- NOTE | 2024-11-02 12:23 | ECHO ---
HEIGHT: 5 ft 6 in WEIGHT: 170 lb 0 oz DATE OF STUDY: 11/02/[address]: Prince Adeel Florez MD 2-DIMENSIONAL: YES M.MODE: YES DOPPLER: YES COLOR FLOW: YES TDS: PORTABLE: YES DEFINITY: BUBBLE STUDY: DIAGNOSIS: NON ST ELEVATION MYOCARDIAL INFARCTION CARDIAC HISTORY: CATHERIZATION: YES SURGERY: NO PROSTHETIC VALVE: NO PACEMAKER: YES MEASUREMENTS (cm) DIASTOLIC (NORMALS) SYSTOLIC (NORMALS) IVSd 1.3 (0.6-1.2) LA Diam 2.9 (1.9-4.0) LVEF 60-65% LVIDd 4.0 (3.5-5.7) LVIDs 2.6 (2.0-3.5) %FS 35% LVPWd 1.3 (0.6-1.2) Ao Diam 2.8 (2.0-3.7) 2 DIMENSIONAL ASSESSMENT: RIGHT ATRIUM: NORMAL LEFT ATRIUM: NORMAL RIGHT VENTRICLE: NORMAL LEFT VENTRICLE: NORMAL TRICUSPID VALVE: TRACE TRICUSPID REGURGITATION MITRAL VALVE: NORMAL PULMONIC VALVE: NORMAL AORTIC VALVE: NORMAL PERICARDIAL EFFUSION: NONE AORTIC ROOT: NORMAL LEFT VENTRICULAR WALL MOTION: NORMAL DOPPLER/COLOR FLOW: DIASTOLIC DYSFUNCTION COMMENTS: 1. NORMAL LEFT VENTRICULAR SYSTOLIC FUNCTION, EJECTION FRACTION 60-65%, NORMAL WALL MOTION 2. DISTOLIC DYSFUNCTION 3. NORMAL FILLING PRESSURE TECHNOLOGIST: SETH SAMUELS
[2024-11-02] MEDS: GABAPENTIN 100 MG CAP PO SCH (13:50)
[2024-11-02] MEDS: DILTIAZEM HCL 60 MG TAB PO SCH (13:54)
[2024-11-02 16:32] VITALS: BP 141/90; TEMP 98.8
[2024-11-02] MEDS ORDERED: APIXABAN 5 MG TABLET PO SCH (21:00)
[2024-11-03] MEDS ORDERED: GLIPIZIDE S.A. 5 MG TAB PO SCH (08:00)
[2024-11-03] MEDS ORDERED: CITALOPRAM 10 MG TABLET PO SCH (09:00)
[2024-11-03] MEDS ORDERED: AMLODIPINE 10 MG TAB PO SCH (09:00)
[2024-11-03] MEDS ORDERED: CLOPIDOGREL 75 MG TABLET PO SCH (09:00)
[2024-11-03] MEDS ORDERED: **PT MED**Dapagliflozin Propanediol [Farxiga] 10 MG Tablet) PO SCH (09:00)
[2024-11-03] MEDS ORDERED: OXYBUTYNIN ER 5 MG TAB PO SCH (09:00)
== END 2024-11-02 18:51 | disposition home or self-care (01) | DRG 322 ==
LOC: ER 19:07 → ERHOLD 11-01 00:34 → 2ND 11-01 08:34
PROVIDERS: ADMIT Internal Medicine; ATTEND Hospitalist
PROC: 027034Z Dilation of Coronary Artery, One Artery with Drug-eluting Intraluminal Device, Percutaneous Approach (ICD-10-PCS; principal; 2024-11-01)
PROC: 4A023N7 Measurement of Cardiac Sampling and Pressure, Left Heart, Percutaneous Approach (ICD-10-PCS; 2024-11-01)
PROC: B2111ZZ Fluoroscopy of Multiple Coronary Arteries using Low Osmolar Contrast (ICD-10-PCS; 2024-11-01)
DX: I21.4 Non-ST elevation (NSTEMI) myocardial infarction (principal); I48.91 Unspecified atrial fibrillation; E11.9 Type 2 diabetes mellitus without complications; I10 Essential (primary) hypertension; E78.5 Hyperlipidemia, unspecified; I25.10 Atherosclerotic heart disease of native coronary artery without angina pectoris; Z95.0 Presence of cardiac pacemaker; Z79.01 Long term (current) use of anticoagulants; Z79.4 Long term (current) use of insulin; Z79.84 Long term (current) use of oral hypoglycemic drugs; Z86.73 Personal history of transient ischemic attack (TIA), and cerebral infarction without residual deficits; Z79.899 Other long term (current) drug therapy; Z90.710 Acquired absence of both cervix and uterus
CPT/HCPCS: 36415; 70450; 71045; 76937; 80048; 80061; 80076; 82947; 83036; 83735; 83880; 84100; 84484; 85025; 85347; 85610; 93005; 93306; 93454; 97116; 97161; 99152; 99153; 99285; C1725; C1893; C9601; J0360; J0461; J1644; J2003; J2250; J3010; J7040; Q9967

== ENCOUNTER 2024-12-13 11:44 | Inpatient (IN) | payer OTHER ==
--- OUTSIDE RECORDS SUMMARY | 2024-12-13 12:14 | XMS REPORT | Continuity of Care Document ---
Author Name Unknown Address [address] [facility] [address] [place] [address] [facility] Address [address] [facility] [place] [address] Care Team Providers Care Customer Advocate Name Role Phone Sushila Babb Primary Care Physician [phone] Bret Lamb Attending Clinician Unavailable Alan Mcclain MD Attending Clinician [phone] ALAN MCCLAIN Attending Clinician Unavail able ALAN MCCLAIN Attending Clinician Unavail able Sushila Babb Attending Clinician [phone] Valencia Brewer LVN Attending Clinician UnavailHan [facility]ending Clinician Anna vailable Doctor Unassigned, Alder Attending Clinician U navailable SHAHRAM COLEY Attending Clinician Unavailable SHAHRAM COLEY Attending Clinician Unavailable Shahram Marshall Attending Clinician [phone] LILI GARCIAS Attending Clinician Unavailable Lili Garcias MD Attending Clinician [phone] LOTTIE TRUONG Attending Clinician UnavailLOTTIE Wayne Attending Clinician UnavailNiya Morales RN Attending Clinician Unavailable LUCY LYNN Attending Clinician Unavailable Daniele Maharaj MD Attending Clinician [phone] Lucy Lynn DO Attending Clinician [phone] Shira Salgado MD Attending Clinician [phone], [facility] Sleep Lab Bed Attending Clinician Unavail Lottie Chong MD Attending Clinician [phone] Pk TOVAR, Get Attending Clinician [phone] ALEXEY CLARKE Attending Clinician Unavailable ALEXEY CLARKE Attending Clinician Unavailable Doctor Unassigned, Alder Attending Clinician U aby Bates MD, Bruce K.HDrew Attending Clinician + [phone] RICARDO LUJAN Attending Clinician Unavailable RICARDO LUJAN Attending Clinician Unavailable DELMI MENDOZA Attending Clinician Unav DELMI Matthews Attending Clinician Unav BRUCE Marshall K.HDrew Attending Clinician UnavailEDUARDO Ghotra Attending Clinician Unavailable 1, [facility] Lab Bed Attending Clinician Unavail Lottie Chong MD Attending Clinician + [phone] KIRILL ALVARADO Attending Clinician Unavailabl ORLANDO Espino Attending Clinician Unavailable ORLANDO EDWARD Attending Clinician Unavailable Carlito TOVAR, Eduardo Attending Clinician [phone] Kinsey Banegas MD Attending Clinician [phone] Pob, [facility] Lab Main Attending Clinician Unavailabl e Ariel [facility], Brian Aceves Attending Clinici an Cruz Huddleston MD Attending Clinician [phone] Niranjan Fisher RN Attending Clinician Unavail able Jacki Samuels DO Attending Clinician [phone] Russell Paul MD Attending Clinician [phone] Lucy Lynn DO Attending Clinician [phone] RADIOLOGY Attending Clinician Unavailable ALAN HARDING Attending Clinician Unavailabl e 2, [facility] Attending Clinician Unavailable CHATO CHAUHAN Attending Clinician Chato Haley MD Attending Clinician + [phone] IGNACIA CRUZ Attending Clinician Unavailable Only, Adc Test Attending Clinician Unavailable Alan Harding PA-C Attending Clinician [phone] Neida [facility] Attending Clinician [phone] Luis MAYORGA, Niya Attending Clinician Unavailable RUSSELL PAUL Attending Clinician Unavailable ALBINA YI Attending Clinician Unavailable Alina CUNNINGHAM, Albina Attending Clinician [phone] Kellie Barfield MD Attending Clinician + [phone] Alan Mcclain MD Attending Clinician [phone] SHAHRAM COLEY Admitting Clinician Unavailable ALAN MCCLAIN Admitting Clinician Unavail able SHIRA SALGADO Admitting Clinician Unavailable Kenan TOVAR, Shira Admitting Clinician [phone] ALEXEY CLARKE Admitting Clinician Unavailable DELMI MENDOZA Admitting Clinician Unav sivaable EDUARDO ESTEBAN Admitting Clinician Unavailable KIRILL ALVARADO Admitting Clinician UnavailEduardo Jonas MD Admitting Clinician [phone] RUSSELL PAUL Admitting Clinician Unavailable Russell Paul MD Admitting Clinician [phone] CHATO CHAUHAN Admitting Clinician IGNACIA Robison Admitting Clinician Unavailable Payers Payer Name Policy Type Policy Number Effective Date Expirati on Date Source [facility] DUAL COMP HMO D SNP [id number] 2021 00:00:00 2023 00:00:00 [place] [id number] 2018 00:00:00 2022 00:00:00 MEDICAID DUAL COMPLETE HMO DSNP [facility] [id number] 2022 00:00:00 2022 00:00:00 Problems Condition Name Condition Details Condition Category Status Onset Date Resolution Date Last Treatment Date Treating Clinician Comments Source Nonsustain ed ventricula r tachycardi a Nonsustain ed ventricula r tachycardi a Disease Active 04-27 00:00: 00 [facility] Flu-like symptoms Flu-like symptoms Disease Active 8-25 00:00: 00 [facility] S/P placement of cardiac pacemaker S/P placement of cardiac pacemaker Disease Active 3-09 00:00: 00 [facility] History of CVA (cerebrova scular accident) without residual deficits History of CVA (cerebrova scular accident) without residual deficits Disease Active 1-18 00:00: 00 [facility] Nonobstruc tive atheroscle rosis of coronary artery Nonobstruc tive atheroscle rosis of coronary artery Disease Active 1-18 00:00: 00 [facility] THEODORE (obstructi ve sleep apnea) THEODORE (obstructi ve sleep apnea) Disease Active 09-18 00:00: 00 [facility] Atrial fibrillati on with RVR Atrial fibrillati on with RVR Disease Active 1-16 00:00: 00 [facility] A-fib A-fib Disease Active 224 00:00: 00 [facility] 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 Disease Active 2020-09 00:00: 00 [facility] Paroxysmal atrial fibrillati on with RVR Paroxysmal atrial fibrillati on with RVR Disease Active 2020-09 00:00: 00 [facility] Obesity (BMI 30-39.9) Obesity (BMI 30-39.9) Disease Active 2020-09 00:00: 00 [facility] Elevated brain natriureti c peptide (BNP) level Elevated brain natriureti c peptide (BNP) level Disease Active 2020-09 00:00: 00 [facility] Elevated brain natriureti c peptide (BNP) level Elevated brain natriureti c peptide (BNP) level Disease Active 2020-09 00:00: 00 [facility] Pancreatit is, unspecifie d pancreatit is type Pancreatit is, unspecifie d pancreatit is type Disease Active 2020-09 00:00: 00 [facility] Decreased coordinati on Decreased coordinati on Disease Active 2015-09 00:00: 00 [facility] Decreased pinch strength Decreased pinch strength Disease Active 2015-09 00:00: 00 [facility] Decreased tile conduit layer strength of left hand Decreased tile conduit layer strength of left hand Disease Active 2015-09 00:00: 00 [facility] Decreased activities of daily living (ADL) Decreased activities of daily living (ADL) Disease Active 2015-09 00:00: 00 [facility] Cerebrovas cular accident (CVA) due to embolism of right carotid artery Cerebrovas cular accident (CVA) due to embolism of right carotid artery Disease Active 2015-09 00:00: 00 [facility] Gait abnormalit y Gait abnormalit y Disease Active 2015-09 00:00: 00 [facility] Weakness of both lower extremitie s Weakness of both lower extremitie s Disease Active 2015-09 00:00: 00 [facility] Cerebrovas cular accident (CVA) due to embolism of right carotid artery Cerebrovas cular accident (CVA) due to embolism of right carotid artery Disease Active 2015-09 00:00: 00 [facility] Weakness of both lower extremitie s Weakness of both lower extremitie s Disease Active 2015-09 00:00: 00 [facility] Left hand weakness Left hand weakness Disease Active 04-24 00:00: 00 [facility] S/P ablation of atrial fibrillati on S/P ablation of atrial fibrillati on Disease Active 04-23 00:00: 00 [facility] Pre-syncop e Pre-syncop e Disease Active 03-06 00:00: 00 [facility] History of endometria l cancer History of endometria l cancer Disease Active 10-01 00:00: 00 [facility] Back pain Back pain Disease Active 03-26 00:00: 00 [facility] Chest pain Chest pain Disease Active 03-26 00:00: 00 [facility] Atrial fibrillati on Atrial fibrillati on Disease Active 03-09 00:00: 00 [facility] DONNELLY (dyspnea on exertion) DONNELLY (dyspnea on exertion) Disease Active 02-09 00:00: 00 [facility] Malignant neoplasm of corpus uteri, except isthmus Malignant neoplasm of corpus uteri, except isthmus Disease Active 12-24 00:00: 00 [facility] Simple obesity Simple obesity Disease Active 11-25 00:00: 00 [facility] Type 2 diabetes mellitus without complicati ons Type 2 diabetes mellitus without complicati ons Disease Active 12-21 00:00: 00 Overview: Formattin g of this note might be different from the original. ICD10 Diagnosis Term [employer] [facility] Type 2 diabetes mellitus with other specified complicati on Type 2 diabetes mellitus with other specified complicati on Disease Active 12-21 00:00: 00 Overview: Formattin g of this note might be different from the original. ICD10 Diagnosis Term [employer] [facility] HLD (hyperlipi demia) HLD (hyperlipi demia) Disease Active 2005-09 00:00: 00 Overview: Formattin g of this note might be different from the original. ICD10 Diagnosis Term [employer] [facility] Dyslipidem ia Dyslipidem ia Disease Active 2005-09 00:00: 00 Overview: Formattin g of this note might be different from the original. ICD10 Diagnosis Term [employer] [facility] Essential hypertensi on, benign Essential hypertensi on, benign Disease Active 05-21 00:00: 00 [facility] Dysthymic disorder Dysthymic disorder Disease Active 05-21 00:00: 00 [facility] Essential hypertensi on Essential hypertensi on Disease Active 05-21 00:00: 00 [facility] Varicose veins of lower extremitie s Varicose veins of lower extremitie s Disease Active 05-08 00:00: 00 [facility] [id number] Type 2 diabetes mellitus with hyperglyce ashley Problem [place] [facility] [id number] [facility] (current) use of insulin Problem [place] [facility] Abdominal pain, left lower quadrant Abdominal pain, left lower quadrant Disease Resolve d 1 2-22 00:00: 00 2016-07-10 00:00:00 2016-07-10 12:28:50 [facility] Abdominal pain Abdominal pain Disease Resolve d 0 5-27 00:00: 00 2016-07-10 00:00:00 2016-07-10 12:28:47 [facility] Fever and chills Fever and chills Disease Resolve d 0 5-27 00:00: 00 2016-07-10 00:00:00 2016-07-10 12:28:57 [facility] Atypical chest pain Atypical chest pain Disease Resolve d 0 3-25 00:00: 00 2016-07-10 00:00:00 2016-07-10 12:28:31 [facility] Acute appendicit is Acute appendicit is Disease Resolve d 0 1-13 00:00: 00 2016-07-10 00:00:00 2016-07-10 12:28:42 [facility] Diabetes mellitus Diabetes mellitus Disease Resolve d 0 7-09 00:00: 00 2013-05-13 00:00:00 [facility] Pneumonia Pneumonia Disease Resolve d 0 6-11 00:00: 00 2013-05-13 00:00:00 2013-05-13 13:45:16 [facility] Uterine polyp Uterine polyp Disease Resolve d 4-03 00:00: 00 2013-05-13 00:00:00 2013-05-13 13:45:26 [facility] Postmenopa usal bleeding Postmenopa usal bleeding Disease Resolve d 3-27 00:00: 00 2013-05-13 00:00:00 2013-05-13 13:45:29 [facility] Elevated blood pressure reading without diagnosis of hypertensi on Elevated blood pressure reading without diagnosis of hypertensi on Disease Resolve d -07 00:00: 2012-12-23 00:00:00 2012-12-23 09:27:09 [facility] Allergies, Adverse Reactions, Alerts Allergy Name Allergy Type Status Severity Reaction(s) Onset Date Inactive Date Treating Clinician Comments Source Latex Propensi ty to adverse reaction s Active Rash 04-21 00:00: 00 [facility] LATEX DRUG INGREDI Active Med Rash 04-21 00:00: 00 [facility] METFORMI N DRUG INGREDI Active Unknown-Cmnt 2013-09 00:00: 00 [facility] Metformi n Propensi ty to adverse reaction s Active Unknown - See comments 2013-09 00:00: 00 Chills, hypoglyce ashley, nausea/vo miting [facility] PINDOLOL DRUG INGREDI Active Hallucinates 04-21 00:00: 00 [facility] Pindolol Propensi ty to adverse reaction s Active Hallucinatio ns 04-21 00:00: 00 [facility] PACLITAX EL DRUG INGREDI Active High Rash 03-09 00:00: 00 [facility] Paclitax el Propensi ty to adverse reaction s to drug Active Other - See comments 03-09 00:00: 00 atrial fibrillat ion [facility] Adhesive Tape-Jaymie icones Propensi ty to adverse reaction s Active Rash 02-19 00:00: 00 Including op site adhesives -- significa nt rash [facility] ADHESIVE TAPE-JAYMIE ICONES DRUG Active Rash 02-19 00:00: 00 [facility] Family History Family Member Diagnosis Comments Start Date Stop Date Sourc e Natural brother Other - see comments [facility] Natural father Cancer [facility] Natural mother Stroke Un[facility] Paternal aunt Cancer Un[facility] Natural sister Cancer Unive [facility] Natural sister Diabetes Unive [facility] Social History Social Habit Start Date Stop Date Quantity Comments Source History SDOH Social Connections Get Together [facility] History SDOH Social Connections Jainism [facility] History SDOH Social Connections Membership [facility] History SDND Social Connections Meetings [facility] Gender identity Univ ers[facility] Sexual orientation U niversity [facility] Sex Assigned At [facility] History of Tobacco Use [facility] Alcoholic beverage intake 2024-04-26 00:00:00 2024-04-26 00:00:00 0 /d [facility] History of Social function 2024-04-23 00:00:00 2024-04-23 00:00:00 [facility] Exposure to SARS-CoV-2 (event) 2022-12-16 00:00:00 2022-12-26 13:31:00 Not sure [facility] Tobacco use and exposure 2022-11-07 00:00:00 2022-11-07 00:00:00 Smokeless tobacco non-user [facility] Alcohol intake 2022-11-07 00:00:00 2022-11-07 00:00:00 0 /d [facility] History SDOH Social Connections Phone 2022-09-17 00:00:00 2022-09-17 00:00:00 5 [facility] History SDOH Social Connections Living 2022-09-17 00:00:00 2022-09-17 00:00:00 4 [facility] History SDOH Physical Activity DPW 2022-09-17 00:00:00 2022-09-17 00:00:00 3 [facility] History SDOH Physical Activity MPS 2022-09-17 00:00:00 2022-09-17 00:00:00 3 [facility] History SDOH Financial 2022-09-17 00:00:00 2022-09-17 00:00:00 4 [facility] History SDOH Food Worry 2022-09-17 00:00:00 2022-09-17 00:00:00 1 [facility] History SDOH Food Scarcity 2022-09-17 00:00:00 2022-09-17 00:00:00 1 [facility] History SDOH Transport Med 2022-09-17 00:00:00 2022-09-17 00:00:00 2 [facility] History SDOH Transport Non-Med 2022-09-17 00:00:00 2022-09-17 00:00:00 2 [facility] History SDOH Alcohol Frequency 2022-09-17 00:00:00 2022-09-17 00:00:00 1 [facility] History SDOH Alcohol Std Drinks 2022-09-17 00:00:00 2022-09-17 00:00:00 0 [facility] History SDOH Alcohol Binge 2022-09-17 00:00:00 2022-09-17 00:00:00 1 [facility] Alcohol Comment 2008-01-17 00:00:00 2008-01-17 00:00:00 OCCASIONALLY [facility] Smoking Status Start Date Stop Date Source Never smoked tobacco [facility] Medications Ordered Medication Name Filled Medication Name Start Date Stop Date Current Medication? Ordering Clinician Indication Dosage Frequency Signature (SIG) Comments Components Source cyclobenzap rine 10 mg tablet 2023-09 00:00: 00 Yes [id number] 10mg Take 1 tablet by mouth 3 (three) times daily as needed for Muscle Spasms. Also for pain, spine. [facility] insulin lispro (human) (HumaLOG U-100) injection 6 Units 2023-09 02:00: 00 07-09 02:09 :00 No 6U 6 Units, Subcutaneo us, ONCE, 1 dose, On Fri07/08/24 at 2000, Routine [facility] acetaminoph en (TYLENOL) tablet 1,000 mg 2023-09 00:00: 00 07-09 00:25 :00 No 1000mg 1,000 mg, Oral, ONCE NOW, 1 dose, On Fri07/08/24 at 1800, Routine [facility] metoclopram kassi HCl (REGLAN) injection 5 mg 2023-09 23:15: 00 07-09 00:26 :00 No 5mg 5 mg, Slow IV Push, ONCE, 1 dose, On Fri07/08/24 at 1715, SANG [facility] ondansetron 4 mg disintegrat ing tablet 2023-09 00:00: 00 07-08 00:00 :00 No [id number] 4mg Take 1 tablet by mouth every 8 (eight) hours as needed for Nausea and Vomiting (N/V). [facility] FreeStyle Margot 3 Plus Sensor - FreeStyle Margot 3 Plus Sensor - 05-26 00:00: 00 No FreeStyle Margot 3 Plus Sensor - nitroglycer in 0.4 mg sublingual tablet 05-24 07:46: [address] 1 tablet under the tongue every 5 (five) minutes as needed for Chest pain. [facility] methocarbam oL 750 mg tablet 05-24 07:46: 35 Yes 750mg Take 1 tablet by mouth 4 (four) times daily. [facility] meloxicam 15 mg tablet 05-24 07:46: 35 Yes 15mg Take 1 tablet by mouth once daily as needed. [facility] insulin degludec (TRESIBA FLEXTOUCH U-100) 100 unit/mL (3 mL) InPn 05-24 07:46: 35 Yes INJECT UP TO A MAX OF 80 UNITS UNDER THE SKIN EVERY DAY. for 36 [facility] FARXIGA 10 mg tablet 05-24 07:46: 35 Yes 10mg Take 1 tablet by mouth in the morning. [facility] amLODIPine 10 mg tablet 05-24 07:46: 35 Yes 10mg Take 1 tablet by mouth in the morning. [facility] traMADoL 50 mg tablet 05-24 07:46: 35 08-01 00:00 :00 No 100mg Take 2 tablets by mouth every 6 (six) hours as needed. [facility] Mounjaro 5 MG/0.5ML Mounjaro 5 MG/0.5ML 05-24 00:00: 00 No Mounjaro 5 MG/0.5ML MOUNJARO 5 mg/0.5 mL subcutaneou s injection 05-18 00:00: 00 Yes 5mg inject 5 mg under the skin weekly. [facility] MOUNJARO 2.5 mg/0.5 mL subcutaneou s injection 16 00:00: 00 Yes INJECT 2.5 MG UNDER THE SKIN EVERY WEEK [facility] traMADoL (ULTRAM) tablet 50 mg 04-28 14:14: 46 Yes 50mg 50 mg, Oral, Q6HPRN, Starting on Fri04/28/24 at 0914, Until Discontinu ed, Routine, Pain (scale 7-10) [facility] amiodarone 200 mg tablet 04-28 00:00: 00 05-29 04:59 :00 No [id number] 200mg Take 1 tablet by mouth in the morning for 30 days. [facility] remdesivir 100 mg in NaCl 0.9% (NS) 100 mL MINI-BAG 04-27 21:00: 00 05-01 20:59 :00 No 100mg 100 mg, IV Infusion, DAILY AT 1600, 4 doses, First dose on Fri04/27/24 at 1600, Last dose on Fri04/30/24 at 1600, Administer over 60 Minutes, 100 mL, Is the patient mechanical ly ventilated ? NO [facility] KCL (KLOR-CON M20) tablet 40 mEq 04-27 13:00: 00 04-28 12:59 :00 No 40meq 40 mEq, Oral, BID, 3 doses, First dose on Fri04/27/24 at 0800, Last dose on Fri04/28/24 at 0800, Routine [facility] atorvastati n (LIPITOR) tablet 40 mg 04-27 02:00: 00 Yes 40mg 40 mg, Oral, QHS, First dose on Fri04/26/24 at 2100, Until Discontinu ed, Routine [facility] amiodarone (PACERONE) tablet 200 mg 04-27 01:00: 00 Yes 200mg 200 mg, Oral, BID, First dose on Fri04/26/24 at 2000, Until Discontinu ed, Routine [facility] cholecalcif luis a (vitamin D3) tablet 1,000 Units 04-26 14:00: 00 Yes 1000U 1,000 Units, Oral, DAILY, First dose on Fri04/26/24 at 0900, Until Discontinu ed, Routine [facility] lisinopriL (PRINIVIL,Z ESTRIL) tablet 20 mg 04-26 14:00: 00 Yes 20mg 20 mg, Oral, DAILY, First dose on Fri04/26/24 at 0900, Until Discontinu ed, Routine [facility] empaglifloz in (JARDIANCE) tablet 25 mg 04-26 14:00: 00 Yes 25mg 25 mg, Oral, DAILY, First dose on Fri04/26/24 at 0900, Until Discontinu ed, Routine, Is this a home medication ? No [facility] citalopram (CELEXA) tablet 10 mg 04-26 14:00: 00 Yes 10mg 10 mg, Oral, DAILY, First dose on Fri04/26/24 at 0900, Until Discontinu ed, Routine [facility] ascorbic acid (vitamin C) (VITAMIN C) tablet 500 mg 04-26 13:00: 00 Yes 500mg 500 mg, Oral, BID, First dose on Fri04/26/24 at 0800, Until Discontinu ed, Routine [facility] zinc sulfate (ORAZINC) capsule 50 mg 04-26 13:00: 00 Yes 50mg 50 mg, Oral, TID, First dose on Fri04/26/24 at 0800, Until Discontinu ed, Routine [facility] apixaban (ELIQUIS) tablet 5 mg 04-26 13:00: 00 Yes 5mg 5 mg, Oral, BID, First dose on Fri04/26/24 at 0800, Until Discontinu ed, Routine, Indication s: Non-Valvul ar Atrial Fibrillati on [facility] Sliding Scale Insulin-Reg ular 04-26 12:30: 00 Yes Subcutaneo us, AC+HS, First dose on Fri04/26/24 at 0730, Until Discontinu ed, Routine [facility] pantoprazol e (PROTONIX) EC tablet 40 mg 04-26 11:00: 00 Yes 40mg 40 mg, Oral, QAM-0600, First dose on Fri04/26/24 at 0600, Until Discontinu ed [facility] diltiazem (CARDIZEM) tablet 30 mg 04-26 11:00: 00 Yes 30mg 30 mg, Oral, Q8H, First dose on Fri04/26/24 at 0600, Until Discontinu ed, Routine [facility] cyclobenzap rine (FLEXERIL) tablet 10 mg 04-26 07:29: 47 Yes 10mg 10 mg, Oral, TIDPRN, Starting on Fri04/26/24 at 0229, Until Discontinu ed, Routine, Muscle Spasms [facility] amiodarone 150 mg/100 mL (NEXTERONE) RTU infusion 150 mg 04-26 04:45: 00 04-26 04:49 :00 No 150mg 150 mg, IV Piggyback, ONCE, 1 dose, On Fri04/25/24 at 2345, Administer over 10 Minutes, 100 mL [facility] magnesium sulfate in D5W 1 gram/100 mL RTU IV Piggyback 1 g 04-26 04:30: 00 04-26 04:49 :00 No 1g 1 g, IV Piggyback, ONCE, 1 dose, On Fri04/25/24 at 2330, Administer over 60 Minutes, 100 mL [facility] glucagon HCL injection 1 mg 04-26 04:24: 46 Yes 1mg [facility] dextrose 50 % in water (D50W) injection 25 mL 04-26 04:24: 45 Yes 25mL [facility] ondansetron (ZOFRAN (PF)) injection 4 mg 04-26 04:24: 35 Yes 4mg 4 mg, Slow IV Push, Q6HPRN, Starting on Fri04/25/24 at 2324, Until Discontinu ed, Routine, Nausea and Vomiting (N/V) [facility] traMADoL (ULTRAM) tablet 50 mg 04-26 04:24: 27 04-28 04:23 :27 No 50mg 50 mg, Oral, Q8HPRN, Starting on Fri04/25/24 at 2324, Until Tu04/27/24 at 2323, Routine, Pain (scale 4-6) [facility] acetaminoph en (TYLENOL) tablet 650 mg 04-26 04:24: 25 Yes 650mg 650 mg, Oral, Q6HPRN, Starting on Fri04/25/24 at 2324, Until Discontinu ed, Routine, Pain (scale 1-3) [facility] NaCl 0.9% (NS) bolus infusion 1,000 mL 04-26 04:00: 00 04-26 04:39 :00 No 1000mL at 999 mL/hr, 1,000 mL, IV Infusion, ONCE, 1 dose, On Fri04/25/24 at 2300, STAT [facility] ondansetron (ZOFRAN (PF)) injection 4 mg 04-26 03:00: 00 04-26 02:27 :00 No 4mg 4 mg, Slow IV Push, ONCE, 1 dose, On Fri04/25/24 at 2200, SANG [facility] acetaminoph en (TYLENOL) tablet 975 mg 04-26 03:00: 00 04-26 02:27 :00 No 975mg 975 mg, Oral, ONCE, 1 dose, On Fri04/25/24 at 2200, SANG [facility] BD INSULIN PEN NEEDLE UF 31 gauge x 5/16" Ndle 04-06 00:00: 00 Yes USE DIRECTED ONCE DAILY [facility] FREESTYLE MARGOT 3 SENSOR Annette 04-05 00:00: 00 Yes USE 1 SENSOR DIRECTED UNDER THE SKIN EVERY 14 DAYS [facility] oxybutynin XL 5 mg 24 hr tablet 04-05 00:00: 00 07-05 05:59 :00 No 5mg Take 1 tablet by mouth in the morning. [facility] enoxaparin (LOVENOX) 100 mg/mL injection 6-13 00:00: 00 02-14 04:59 :00 No [id number] 90mg inject 0.9 mL under the skin every 12 (twelve) hours for 2 days. [facility] diltiazem 30 mg tablet -02 00:00: 00 Yes [id number] 30mg Take 1 tablet by mouth every 8 (eight) hours. [facility] empaglifloz in 25 mg Tab 12-18 15:19: 50 Yes Take by mouth daily. [facility] diclofenac 75 mg EC tablet 12-18 15:19: 50 Yes 75mg Take 1 tablet by mouth in the morning and 1 tablet in the evening. Take with meals. [facility] doxycycline hyclate (Vibramycin ) capsule 100 mg 11-09 00:00: 00 11-15 22:59 :00 No [id number] 100mg 100 mg, Oral, Q12HA2, 14 doses, First dose on Fri11/08/22 at 1800, Last dose on Fri11/15/22 at 0600, SANG
Re ason for Anti-Infec tive: Surgical Prophylaxi s
Surgi kin Prophylaxi s: Cardiothor acic
Du ration of therapy: within 24 hours of surgery [facility] empaglifloz in 25 mg Tab 11-08 19:04: 14 Yes Take by mouth daily. [facility] diclofenac 75 mg EC tablet 11-08 19:04: 14 Yes 75mg Take 1 tablet by mouth in the morning and 1 tablet in the evening. Take with meals. [facility] coenzyme Q10 100 mg softgel 11-08 19:04: 14 04-26 00:00 :00 No 100mg Take 1 capsule by mouth in the morning. [facility] loratadine 10 mg capsule 11-08 19:04: 14 04-23 00:00 :00 No Take by mouth as needed. [facility] empaglifloz in (JARDIANCE) tablet 25 mg 11-08 15:00: 00 Yes [id number] 25mg 25 mg, Oral, DAILY, First dose [...] meet the criteria for inpatient ordering? Yes [facility] citalopram (CELEXA) tablet 10 mg 11-08 15:00: 00 Yes [id number] 10mg 10 mg, Oral, DAILY, First dose on Fri11/08/22 at 0900, Until Discontinu ed, Routine [facility] vancomycin 1250 mg in NS 250 mL RTU IV Piggyback 1,250 mg 11-08 08:00: 00 11-08 20:49 :00 No [id number] 1250mg 1,250 mg, IV Piggyback, Q12H ABX, 2 doses, First dose on Fri11/08/22 at 0200, Last dose on Fri11/08/22 at 1400, Administer over 90 Minutes, 250 mL, CV Recovery to Floor
R corie for Anti-Infec tive: Surgical Prophylaxi s
Surgi kin Prophylaxi s: Cardiothor acic
Du ration of therapy: within 24 hours of surgery [facility] HYDROcodone -acetaminop hen (NORCO 5) 5-325 mg tablet 1 tablet 11-08 05:09: 59 Yes [id number] 1{tbl} 1 tablet, Oral, Q6HPRN, 2 doses, Starting on Kirti 11/07/22 at 2309, Until Discontinu ed, Routine, Pain (scale 7-10), Pain (scale 4-6) [facility] diltiazem (CARDIZEM) tablet 30 mg 11-08 04:00: 00 Yes [id number] 30mg 30 mg, Oral, Q8H, First dose on Fri11/07/22 at 2200, Until Discontinu ed, Routine [facility] atorvastati n (LIPITOR) tablet 40 mg 11-08 03:00: 00 Yes [id number] 40mg 40 mg, Oral, QHS, First dose on Fri11/07/22 at 2100, Until Discontinu ed, Routine [facility] lisinopriL (PRINIVIL,Z ESTRIL) tablet 20 mg 11-08 02:00: 00 Yes [id number] 20mg 20 mg, Oral, BID, First dose on Kirti 11/07/22 at 2000, Until Discontinu ed, Routine [facility] HYDROcodone -acetaminop hen (NORCO 5) 5-325 mg tablet 1 tablet 11-08 00:45: 00 11-07 23:51 :00 No [id number] 1{tbl} 1 tablet, Oral, ONCE, 1 dose, On Kirti 11/07/22 at 1845, Routine [facility] doxycycline hyclate 100 mg capsule 11-08 00:00: 00 11-16 04:59 :00 No [id number] 100mg Take 1 capsule by mouth every 12 (twelve) hours for 7 days. [facility] cyclobenzap rine (FLEXERIL) tablet 10 mg 11-07 22:17: 45 Yes [id number] 10mg 10 mg, Oral, TIDPRN, Starting on Fri11/07/22 at 1617, Until Discontinu ed, Routine, Muscle Spasms [facility] iohexol (OMNIPAQUE 300-100 mL) injection 11-07 21:55: 00 Yes ONCE INTRA PROCEDURE, Starting on Fri11/07/22 at 1555, Until Discontinu ed, Routine, CV Intraproce dure [facility] lidocaine 1% (PF) (XYLOCAINE) injection 11-07 20:42: 02 11-07 21:59 :55 No ONCE INTRA PROCEDURE, Starting on Fri11/07/22 at 1442, Until Kirti 11/07/22 at 1559, Routine, CV Intraproce dure [facility] vancomycin 1000 mg in NS 200 mL RTU IV Piggyback 11-07 20:35: 00 11-07 20:30 :00 No CONTINUOUS PRN, Starting on Kirti 11/07/22 at 1435, Until Kirti 11/07/22 at 1430, Administer over 60 Minutes, CV Intraproce dure [facility] midazolam (VERSED) injection 11-07 20:30: 58 11-07 21:59 :55 No ONCE INTRA PROCEDURE, Starting on Kirti 11/07/22 at 1430, Until Kirti 11/07/22 at 1559, Routine, CV Intraproce dure [facility] FENTanyl PF (SUBLIMAZE (PF)) injection 11-07 20:30: 42 11-07 21:59 :55 No ONCE INTRA PROCEDURE, Starting on Kirti 11/07/22 at 1430, Until Kirti 11/07/22 at 1559, Routine, CV Intraproce dure [facility] coenzyme Q10 100 mg softgel 10-03 14:57: 35 Yes 100mg Take 100 mg by mouth daily. [facility] coenzyme Q10 100 mg softgel 09-23 13:55: 38 Yes 100mg Take 100 mg by mouth daily. [facility] atorvastati n 40 mg tablet 09-23 00:00: 00 Yes [id number] 40mg Take 1 tablet by mouth at bedtime. [facility] diltiazem 30 mg tablet 09-23 00:00: 00 01-31 00:00 :00 No [id number] 9109 30mg Take 1 tablet by mouth every 8 (eight) hours. [facility] empaglifloz in 25 mg Tab 09-19 16:16: 02 Yes Take by mouth daily. [facility] loratadine 10 mg capsule 09-19 16:16: 02 Yes Take by mouth as needed. [facility] coenzyme Q10 100 mg softgel 09-19 16:16: 02 Yes 100mg Take 100 mg by mouth daily. [facility] diltiazem 30 mg tablet 09-19 00:00: 00 09-23 00:00 :00 No [id number] 9109 30mg Take 1 tablet by mouth every 8 (eight) hours for 30 days. [facility] diltiazem (CARDIZEM) tablet 30 mg 09-18 20:00: 00 Yes 30mg 30 mg, Oral, Q8H, First dose (after last modificati on) on Fri09/18/22 at 1400, Until Discontinu ed, Routine [facility] atorvastati n (LIPITOR) tablet 40 mg 09-18 03:00: 00 Yes 40mg 40 mg, Oral, QHS, First dose on Fri09/17/22 at 2100, Until Discontinu ed, Routine [facility] empaglifloz in (JARDIANCE) tablet 25 mg 09-17 [...] meet the criteria for inpatient ordering? Yes [facility] citalopram (CELEXA) tablet 10 mg 09-17 15:00: 00 Yes 10mg 10 mg, Oral, DAILY, First dose on Fri09/17/22 at 0900, Until Discontinu ed, Routine [facility] apixaban (ELIQUIS) tablet 5 mg 09-17 14:00: 00 Yes 5mg 5 mg, Oral, BID, First dose on Fri09/17/22 at 0800, Until Discontinu ed, Routine
Indicatio ns: Non-Valvul ar Atrial Fibrillati on [facility] Sliding Scale Insulin-Reg ular + Fsbg Testing 09-17 13:30: 00 Yes Subcutaneo us, AC+HS, First dose on Fri09/17/22 at 0730, Until Discontinu ed, Routine [facility] NaCl 0.9% (NS) IV infusion 1,000 mL 09-17 07:30: 00 09-17 17:41 :00 No 1000mL at 100 mL/hr, IV Infusion, ONCE, 1 dose, On Fri09/17/22 at 0130, Routine [facility] glucagon (GLUCAGEN DIAGNOSTIC KIT) injection 1 mg 09-17 04:21: 18 Yes 1mg 1 mg, Intramuscu lar, PRN, Starting on Fri09/16/22 at 2221, Until Discontinu ed, SANG, Blood Glucose < or = 70 mg/dL and patient is unable to swallow or has mental changes. [facility] dextrose 50 % in water (D50W) injection 25 mL 09-17 04:21: 18 Yes 25mL 25 mL, Slow IV Push, PRN, Starting on Fri09/16/22 at 2221, Until Discontinu ed, SANG, Blood Glucose < or = 70 mg/dL and patient is unable to swallow or has mental status changes. [facility] cyclobenzap rine (FLEXERIL) tablet 10 mg 09-17 04:13: 32 Yes 10mg 10 mg, Oral, TIDPRN, Starting on Fri09/16/22 at 2213, Until Discontinu ed, Routine, Muscle Spasms [facility] digoxin (LANOXIN) injection 500 mcg 09-17 02:15: 00 09-17 01:53 :00 No 500ug 500 mcg, Intravenou s, ONCE, 1 dose, On Fri09/16/22 at 2015, Routine [facility] diltiazem (CARDIZEM IV) injection 10 mg 09-17 02:15: 00 09-17 01:53 :00 No 10mg 10 mg, IV Push, ONCE, 1 dose, On Fri09/16/22 at 2015, STAT
Fa culty member approving Restricted medication : RUSSELL PAUL [facility] diltiazem (CARDIZEM) tablet 30 mg 09-17 00:00: 00 09-18 15:54 :29 No 30mg 30 mg, Oral, Q6H, First dose on Fri09/16/22 at 1800, Until Discontinu ed, Routine [facility] acetaminoph en-codeine (TYLENOL #3) 300-30 mg tablet 1 tablet 09-16 23:49: 01 09-18 23:48 :01 No 1{tbl} 1 tablet, Oral, Q6HPRN, Starting on Fri09/16/22 at 1749, Until Fri09/18/22 at 1748, Routine, Pain (scale 4-6) [facility] acetaminoph en (TYLENOL) tablet 650 mg 09-16 23:49: 00 Yes 650mg 650 mg, Oral, Q6HPRN, Starting on Fri09/16/22 at 1749, Until Discontinu ed, Routine, Pain (scale 1-3) [facility] diltiazem (CARDIZEM IV) injection 15 mg 09-16 23:45: 00 09-16 23:39 :00 No 15mg 15 mg, IV Push, ONCE, 1 dose, On Fri09/16/22 at 1745, STAT
Fa culty member approving Restricted medication : JACKI SAMUELS [facility] diltiazem (CARDIZEM IV) injection 25 mg 09-16 21:30: 00 09-16 21:20 :00 No 25mg 25 mg, IV Push, ONCE, 1 dose, On Fri09/16/22 at 1530, STAT
Fa culty member approving Restricted medication : JACKI SAMUELS [facility] lisinopriL 20 mg tablet 2021-09 14:37: 53 07-08 00:00 :00 No 20mg Take 20 mg by mouth 2 (two) times daily. [facility] lisinopriL 20 mg tablet 2021-09 00:00: 00 01-09 00:00 :00 No 20mg Take 1 tablet by mouth in the morning and 1 tablet in the evening. [facility] empaglifloz in 25 mg Tab 03-22 15:15: 24 Yes Take by mouth daily. [facility] loratadine 10 mg capsule 03-22 15:15: 24 Yes Take by mouth as needed. [facility] coenzyme Q10 100 mg softgel 03-22 15:15: 24 Yes 100mg Take 1 capsule by mouth in the morning. [facility] lisinopriL 20 mg tablet 03-22 15:15: 24 Yes 20mg Take 20 mg by mouth 2 (two) times daily. [facility] nitroglycer in (NITROSTAT) 0.4 mg sublingual tablet 01-09 13:20: 35 01-09 00:00 :[address] 0.4 mg under the tongue every 5 (five) minutes as needed for Chest pain. [facility] estradioL 0.01 % (0.1 mg/gram) vaginal cream 10-22 00:00: 00 04-26 00:00 :00 No [id number] Apply a thin layer to affected area twice per week [facility] amLODIPine 10 mg tablet 09-04 00:00: 00 09-23 00:00 :00 No [facility] amiodarone 200 mg tablet 2020-09 00:00: 00 01-09 00:00 :00 No [id number] 200mg Take 1 tablet by mouth daily. [facility] citalopram 10 mg tablet 2020-09 00:00: 00 Yes 10mg Take 1 tablet in the morning. [facility] atorvastati n 40 mg tablet 2019-09 030 00:00: 00 09-23 00:00 :00 No 40mg Take 1 tablet by mouth at bedtime. [facility] cyclobenzap rine 10 mg tablet 05-26 00:00: 00 07-20 00:00 :00 No [id number] 10mg Take 1 tablet by mouth 3 (three) times daily as needed for Muscle Spasms. Also for pain, spine. [facility] apixaban 5 mg tablet 02-03 00:00: 00 Yes [id number] 5mg Take 1 tablet by mouth 2 (two) times daily. [facility] calcium carbonate-v itamin D3 1,000 mg(2,500 mg)-800 unit Tab 05-06 00:00: 00 Yes 1{tbl} Take 1 Tab by mouth daily. [facility] dilTIAZem HCl 30 MG dilTIAZem HCl 30 [...] MG hydroCHLORO thiazide 25 MG No 1{table t_in_ e_morni ng} QD hydroCHLOR Othiazide 25 MG [...] Filled Immunization Name Date Status Comments Source Pneumococcal Polysaccharide, PPSV23 (PNEUMOVAX) 2024-04-29 00:00:00 Completed [facility] TDAP (ADACEL) VACCINE 2024-04-29 00:00:00 Completed [facility] Influenza Virus Vaccine Quad IM 3+ YRS 2024-04-29 00:00:00 Completed [facility] Influenza Virus Vaccine Quad IM Multi-dose 6+ MO 2024-04-29 00:00:00 Completed [facility] SARS-COV-2 COVID-19 MODERNA 12+ YRS VACCINE 2024-04-29 00:00:00 Completed [facility] Pneumococcal Polysaccharide, PPSV23 (PNEUMOVAX) 2023-12-29 00:00:00 Completed [facility] TDAP (ADACEL) VACCINE 2023-12-29 00:00:00 Completed [facility] Influenza Virus Vaccine Quad IM 3+ YRS 2023-12-29 00:00:00 Completed [facility] Influenza Virus Vaccine Quad IM Multi-dose 6+ MO 2023-12-29 00:00:00 Completed [facility] SARS-COV-2 COVID-19 MODERNA 12+ YRS VACCINE 2023-12-29 00:00:00 Completed [facility] Pneumococcal Polysaccharide, PPSV23 (PNEUMOVAX) 2023-10-29 00:00:00 Completed [facility] TDAP (ADACEL) VACCINE 2023-10-29 00:00:00 Completed [facility] Influenza Virus Vaccine Quad IM 3+ YRS 2023-10-29 00:00:00 Completed [facility] Influenza Virus Vaccine Quad IM Multi-dose 6+ MO 2023-10-29 00:00:00 Completed [facility] SARS-COV-2 COVID-19 MODERNA 12+ YRS VACCINE 2023-10-29 00:00:00 Completed [facility] Pneumococcal Polysaccharide, PPSV23 (PNEUMOVAX) 2023-10-07 00:00:00 Completed [facility] TDAP (ADACEL) VACCINE 2023-10-07 00:00:00 Completed [facility] Influenza Virus Vaccine Quad IM 3+ YRS 2023-10-07 00:00:00 Completed [facility] Influenza Virus Vaccine Quad IM Multi-dose 6+ MO 2023-10-07 00:00:00 Completed [facility] SARS-COV-2 COVID-19 MODERNA 12+ YRS VACCINE 2023-10-07 00:00:00 Completed [facility] Pneumococcal Polysaccharide, PPSV23 (PNEUMOVAX) 2023-10-03 00:00:00 Completed [facility] TDAP (ADACEL) VACCINE 2023-10-03 00:00:00 Completed [facility] Influenza Virus Vaccine Quad IM 3+ YRS 2023-10-03 00:00:00 Completed [facility] Influenza Virus Vaccine Quad IM Multi-dose 6+ MO 2023-10-03 00:00:00 Completed [facility] SARS-COV-2 COVID-19 MODERNA 12+ YRS VACCINE 2023-10-03 00:00:00 Completed [facility] Pneumococcal Polysaccharide, PPSV23 (PNEUMOVAX) 2023-09-30 00:00:00 Completed [facility] TDAP (ADACEL) VACCINE 2023-09-30 00:00:00 Completed [facility] Influenza Virus Vaccine Quad IM 3+ YRS 2023-09-30 00:00:00 Completed [facility] Influenza Virus Vaccine Quad IM Multi-dose 6+ MO 2023-09-30 00:00:00 Completed [facility] SARS-COV-2 COVID-19 MODERNA 12+ YRS VACCINE 2023-09-30 00:00:00 Completed [facility] Pneumococcal Polysaccharide, PPSV23 (PNEUMOVAX) 2023-09-12 00:00:00 Completed [facility] TDAP (ADACEL) VACCINE 2023-09-12 00:00:00 Completed [facility] Influenza Virus Vaccine Quad IM 3+ YRS 2023-09-12 00:00:00 Completed [facility] Influenza Virus Vaccine Quad IM Multi-dose 6+ MO 2023-09-12 00:00:00 Completed [facility] SARS-COV-2 COVID-19 MODERNA 12+ YRS VACCINE 2023-09-12 00:00:00 Completed [facility] Pneumococcal Polysaccharide, PPSV23 (PNEUMOVAX) 2023-09-11 00:00:00 Completed [facility] TDAP (ADACEL) VACCINE 2023-09-11 00:00:00 Completed [facility] Influenza Virus Vaccine Quad IM 3+ YRS 2023-09-11 00:00:00 Completed [facility] Influenza Virus Vaccine Quad IM Multi-dose 6+ MO 2023-09-11 00:00:00 Completed [facility] SARS-COV-2 COVID-19 MODERNA 12+ YRS VACCINE 2023-09-11 00:00:00 Completed [facility] Pneumococcal Polysaccharide, PPSV23 (PNEUMOVAX) 2023-06-30 00:00:00 Completed [facility] TDAP (ADACEL) VACCINE 2023-06-30 00:00:00 Completed [facility] Influenza Virus Vaccine Quad IM 3+ YRS 2023-06-30 00:00:00 Completed [facility] Influenza Virus Vaccine Quad IM Multi-dose 6+ MO 2023-06-30 00:00:00 Completed [facility] SARS-COV-2 COVID-19 MODERNA 12+ YRS VACCINE 2023-06-30 00:00:00 Completed [facility] Pneumococcal Polysaccharide, PPSV23 (PNEUMOVAX) 2021-11-01 00:00:00 Completed [facility] TDAP (ADACEL) VACCINE 2021-11-01 00:00:00 Completed [facility] Influenza Virus Vaccine Quad IM Multi-dose 6+ MO 2021-11-01 00:00:00 Completed [facility] Influenza Virus Vaccine Quad .5 mL IM 6+ MO (FLUZONE/FLULAVAL/F LUARIX) 2021-11-01 00:00:00 Completed [facility] SARS-COV-2 COVID-19 MODERNA 12+ YRS VACCINE 2021-11-01 00:00:00 Completed [facility] SARS-COV-2 COVID-19 MODERNA VACCINE 2020-11-04 00:00:00 Completed [facility] SARS-COV-2 COVID-19 MODERNA 12+ YRS VACCINE 2020-11-04 00:00:00 Completed [facility] SARS-COV-2 COVID-19 MODERNA 12+ YRS VACCINE 2020-11-04 00:00:00 Completed [facility] SARS-COV-2 COVID-19 MODERNA 12+ YRS VACCINE 2020-11-04 00:00:00 Completed [facility] SARS-COV-2 COVID-19 MODERNA 12+ YRS VACCINE 2020-11-04 00:00:00 Completed [facility] SARS-COV-2 COVID-19 MODERNA 12+ YRS VACCINE 2020-11-04 00:00:00 Completed [facility] SARS-COV-2 COVID-19 MODERNA 12+ YRS VACCINE 2020-11-04 00:00:00 Completed [facility] SARS-COV-2 COVID-19 MODERNA 12+ YRS VACCINE 2020-11-04 00:00:00 Completed [facility] SARS-COV-2 COVID-19 MODERNA 12+ YRS VACCINE 2020-11-04 00:00:00 Completed [facility] SARS-COV-2 COVID-19 MODERNA 12+ YRS VACCINE 2020-11-04 00:00:00 Completed [facility] SARS-COV-2 COVID-19 MODERNA 12+ YRS VACCINE 2020-11-04 00:00:00 Completed [facility] SARS-COV-2 COVID-19 MODERNA 12+ YRS VACCINE 2020-11-04 00:00:00 Completed [facility] SARS-COV-2 COVID-19 MODERNA 12+ YRS VACCINE 2020-11-04 00:00:00 Completed [facility] SARS-COV-2 COVID-19 MODERNA 12+ YRS VACCINE 2020-11-04 00:00:00 Completed [facility] SARS-COV-2 COVID-19 MODERNA 12+ YRS VACCINE 2020-11-04 00:00:00 Completed [facility] SARS-COV-2 COVID-19 MODERNA 12+ YRS VACCINE 2020-11-04 00:00:00 Completed [facility] SARS-COV-2 COVID-19 MODERNA 12+ YRS VACCINE 2020-11-04 00:00:00 Completed [facility] SARS-COV-2 COVID-19 MODERNA 12+ YRS VACCINE 2020-11-04 00:00:00 Completed [facility] SARS-COV-2 COVID-19 MODERNA 12+ YRS VACCINE 2020-11-04 00:00:00 Completed [facility] SARS-COV-2 COVID-19 MODERNA 12+ YRS VACCINE 2020-11-04 00:00:00 Completed [facility] SARS-COV-2 COVID-19 MODERNA 12+ YRS VACCINE 2020-11-04 00:00:00 Completed [facility] SARS-COV-2 COVID-19 MODERNA 12+ YRS VACCINE 2020-11-04 00:00:00 Completed [facility] SARS-COV-2 COVID-19 MODERNA 12+ YRS VACCINE 2020-11-04 00:00:00 Completed [facility] SARS-COV-2 COVID-19 MODERNA 12+ YRS VACCINE 2020-11-04 00:00:00 Completed [facility] SARS-COV-2 COVID-19 MODERNA 12+ YRS VACCINE 2020-11-04 00:00:00 Completed [facility] SARS-COV-2 COVID-19 MODERNA 12+ YRS VACCINE 2020-11-04 00:00:00 Completed [facility] SARS-COV-2 COVID-19 MODERNA 12+ YRS VACCINE 2020-11-04 00:00:00 Completed [facility] SARS-COV-2 COVID-19 MODERNA 12+ YRS VACCINE 2020-11-04 00:00:00 Completed [facility] SARS-COV-2 COVID-19 MODERNA 12+ YRS VACCINE 2020-11-04 00:00:00 Completed [facility] SARS-COV-2 COVID-19 MODERNA 12+ YRS VACCINE 2020-11-04 00:00:00 Completed [facility] SARS-COV-2 COVID-19 MODERNA 12+ YRS VACCINE 2020-11-04 00:00:00 Completed [facility] SARS-COV-2 COVID-19 MODERNA 12+ YRS VACCINE 2020-11-04 00:00:00 Completed [facility] SARS-COV-2 COVID-19 MODERNA 12+ YRS VACCINE 2020-11-04 00:00:00 Completed SARS-COV-2 COVID-19 MODERNA VACCINE 2020-10-10 00:00:00 Completed [facility] [facility] SARS-COV-2 COVID-19 MODERNA 12+ YRS VACCINE 2020-10-10 00:00:00 Completed [facility] SARS-COV-2 COVID-19 MODERNA 12+ YRS VACCINE 2020-10-10 00:00:00 Completed [facility] SARS-COV-2 COVID-19 MODERNA 12+ YRS VACCINE 2020-10-10 00:00:00 Completed [facility] SARS-COV-2 COVID-19 MODERNA 12+ YRS VACCINE 2020-10-10 00:00:00 Completed [facility] SARS-COV-2 COVID-19 MODERNA 12+ YRS VACCINE 2020-10-10 00:00:00 Completed [facility] SARS-COV-2 COVID-19 MODERNA 12+ YRS VACCINE 2020-10-10 00:00:00 Completed [facility] SARS-COV-2 COVID-19 MODERNA 12+ YRS VACCINE 2020-10-10 00:00:00 Completed [facility] SARS-COV-2 COVID-19 MODERNA 12+ YRS VACCINE 2020-10-10 00:00:00 Completed [facility] SARS-COV-2 COVID-19 MODERNA 12+ YRS VACCINE 2020-10-10 00:00:00 Completed [facility] SARS-COV-2 COVID-19 MODERNA 12+ YRS VACCINE 2020-10-10 00:00:00 Completed [facility] SARS-COV-2 COVID-19 MODERNA 12+ YRS VACCINE 2020-10-10 00:00:00 Completed [facility] SARS-COV-2 COVID-19 MODERNA 12+ YRS VACCINE 2020-10-10 00:00:00 Completed [facility] SARS-COV-2 COVID-19 MODERNA 12+ YRS VACCINE 2020-10-10 00:00:00 Completed [facility] SARS-COV-2 COVID-19 MODERNA 12+ YRS VACCINE 2020-10-10 00:00:00 Completed [facility] SARS-COV-2 COVID-19 MODERNA 12+ YRS VACCINE 2020-10-10 00:00:00 Completed [facility] SARS-COV-2 COVID-19 MODERNA 12+ YRS VACCINE 2020-10-10 00:00:00 Completed [facility] SARS-COV-2 COVID-19 MODERNA 12+ YRS VACCINE 2020-10-10 00:00:00 Completed [facility] SARS-COV-2 COVID-19 MODERNA 12+ YRS VACCINE 2020-10-10 00:00:00 Completed [facility] SARS-COV-2 COVID-19 MODERNA 12+ YRS VACCINE 2020-10-10 00:00:00 Completed [facility] SARS-COV-2 COVID-19 MODERNA 12+ YRS VACCINE 2020-10-10 00:00:00 Completed [facility] SARS-COV-2 COVID-19 MODERNA 12+ YRS VACCINE 2020-10-10 00:00:00 Completed [facility] SARS-COV-2 COVID-19 MODERNA 12+ YRS VACCINE 2020-10-10 00:00:00 Completed [facility] SARS-COV-2 COVID-19 MODERNA 12+ YRS VACCINE 2020-10-10 00:00:00 Completed [facility] SARS-COV-2 COVID-19 MODERNA 12+ YRS VACCINE 2020-10-10 00:00:00 Completed [facility] SARS-COV-2 COVID-19 MODERNA 12+ YRS VACCINE 2020-10-10 00:00:00 Completed [facility] SARS-COV-2 COVID-19 MODERNA 12+ YRS VACCINE 2020-10-10 00:00:00 Completed [facility] SARS-COV-2 COVID-19 MODERNA 12+ YRS VACCINE 2020-10-10 00:00:00 Completed [facility] SARS-COV-2 COVID-19 MODERNA 12+ YRS VACCINE 2020-10-10 00:00:00 Completed [facility] SARS-COV-2 COVID-19 MODERNA 12+ YRS VACCINE 2020-10-10 00:00:00 Completed [facility] SARS-COV-2 COVID-19 MODERNA 12+ YRS VACCINE 2020-10-10 00:00:00 Completed [facility] SARS-COV-2 COVID-19 MODERNA 12+ YRS VACCINE 2020-10-10 00:00:00 Completed [facility] Influenza Virus Vaccine Quad .5 mL IM 6+ MO 2020-07-07 00:00:00 Completed [facility] Influenza Virus Vaccine Quad .5 mL IM 6+ MO 2020-07-07 00:00:00 Completed [facility] Influenza Virus Vaccine Quad .5 mL IM 6+ MO 2020-07-07 00:00:00 Completed [facility] Influenza Virus Vaccine Quad .5 mL IM 6+ MO 2020-07-07 00:00:00 Completed [facility] Influenza Virus Vaccine Quad .5 mL IM 6+ MO 2020-07-07 00:00:00 Completed [facility] Influenza Virus Vaccine Quad .5 mL IM 6+ MO 2020-07-07 00:00:00 Completed [facility] Influenza Virus Vaccine Quad .5 mL IM 6+ MO 2020-07-07 00:00:00 Completed [facility] Influenza Virus Vaccine Quad .5 mL IM 6+ MO 2020-07-07 00:00:00 Completed [facility] Influenza Virus Vaccine Quad .5 mL IM 6+ MO 2020-07-07 00:00:00 Completed [facility] Influenza Virus Vaccine Quad .5 mL IM 6+ MO 2020-07-07 00:00:00 Completed [facility] Influenza Virus Vaccine Quad .5 mL IM 6+ MO 2020-07-07 00:00:00 Completed [facility] Influenza Virus Vaccine Quad .5 mL IM 2020-07-07 00:00:00 Completed [facility] Influenza Virus Vaccine Quad .5 mL IM 6+ MO 2020-07-07 00:00:00 Completed [facility] Influenza Virus Vaccine Quad .5 mL IM + MO 2020-07-07 00:00:00 Completed [facility] Influenza Virus Vaccine Quad .5 mL IM 6+ MO 2020-07-07 00:00:00 Completed [facility] Influenza Virus Vaccine Quad .5 mL IM 6+ MO 2020-07-07 00:00:00 Completed [facility] Influenza Virus Vaccine Quad .5 mL IM 6+ MO 2020-07-07 00:00:00 Completed [facility] Influenza Virus Vaccine Quad .5 mL IM 6+ MO 2020-07-07 00:00:00 Completed [facility] Influenza Virus Vaccine Quad .5 mL IM 6+ MO 2020-07-07 00:00:00 Completed [facility] Influenza Virus Vaccine Quad .5 mL IM 6+ MO 2020-07-07 00:00:00 Completed [facility] Influenza Virus Vaccine Quad .5 mL IM 6+ MO 2020-07-07 00:00:00 Completed [facility] Influenza Virus Vaccine Quad .5 mL IM 6+ MO 2020-07-07 00:00:00 Completed [facility] Influenza Virus Vaccine Quad .5 mL IM 6+ MO 2020-07-07 00:00:00 Completed [facility] Influenza Virus Vaccine Quad .5 mL IM 6+ MO 2020-07-07 00:00:00 Completed [facility] Influenza Virus Vaccine Quad .5 mL IM 6+ MO 2020-07-07 00:00:00 Completed [facility] Influenza Virus Vaccine Quad .5 mL IM 6+ MO 2020-07-07 00:00:00 Completed [facility] Influenza Virus Vaccine Quad .5 mL IM 6+ MO 2020-07-07 00:00:00 Completed [facility] Influenza Virus Vaccine Quad .5 mL IM 6+ MO 2020-07-07 00:00:00 Completed [facility] Influenza Virus Vaccine Quad .5 mL IM 6+ MO 2020-07-07 00:00:00 Completed [facility] Influenza Virus Vaccine Quad .5 mL IM 6+ MO 2020-07-07 00:00:00 Completed [facility] Influenza Virus Vaccine Quad .5 mL IM 6+ MO 2020-07-07 00:00:00 Completed [facility] Influenza Virus Vaccine Quad .5 mL IM 6+ MO 2020-07-07 00:00:00 Completed [facility] Influenza Virus Vaccine Quad .5 mL IM 6+ MO (FLUZONE/FLULAVAL/F LUARIX) 2020-07-07 00:00:00 Completed [facility] TDAP 2019-06-05 00:00:00 Completed [facility] TDAP 2019-06-05 00:00:00 Completed [facility] TDAP 2019-06-05 00:00:00 Completed [facility] TDAP 2019-06-05 00:00:00 Completed [facility] TDAP 2019-06-05 00:00:00 Completed [facility] TDAP 2019-06-05 00:00:00 Completed [facility] TDAP 2019-06-05 00:00:00 Completed [facility] TDAP 2019-06-05 00:00:00 Completed [facility] TDAP 2019-06-05 00:00:00 Completed [facility] TDAP 2019-06-05 00:00:[address] [facility] TDAP 2019-06-05 00:00:00 Completed [facility] TDAP 2019-06-05 00:00:00 Completed [facility] TDAP 2019-06-05 00:00:00 Completed [facility] TDAP 2019-06-05 00:00:00 Completed [facility] TDAP 2019-06-05 00:00:00 Completed [facility] TDAP 2019-06-05 00:00:00 Completed [facility] TDAP 2019-06-05 00:00:00 Completed [facility] TDAP 2019-06-05 00:00:00 Completed [facility] TDAP 2019-06-05 00:00:00 Completed [facility] TDAP 2019-06-05 00:00:00 Completed [facility] TDAP 2019-06-05 00:00:00 Completed [facility] TDAP 2019-06-05 00:00:00 Completed [facility] TDAP 2019-06-05 00:00:00 Completed [facility] TDAP 2019-06-05 00:00:00 Completed [facility] TDAP 2019-06-05 00:00:00 Completed [facility] TDAP 2019-06-05 00:00:00 Completed [facility] TDAP 2019-06-05 00:00:00 Completed [facility] TDAP 2019-06-05 00:00:00 Completed [facility] TDAP 2019-06-05 00:00:00 Completed [facility] TDAP 2019-06-05 00:00:00 Completed [facility] TDAP 2019-06-05 00:00:00 Completed [facility] TDAP 2019-06-05 00:00:00 Completed [facility] TDAP 2019-06-05 00:00:00 Completed [facility] TDAP 2019-06-05 00:00:00 Completed [facility] Influenza Virus Vaccine Quad IM 3+ YRS 2019-06-01 00:00:00 Completed [facility] Influenza Virus Vaccine Quad IM 3+ YRS 2019-06-01 00:00:00 Completed [facility] Influenza Virus Vaccine Quad IM 3+ YRS 2019-06-01 00:00:00 Completed [facility] Influenza Virus Vaccine Quad IM 3+ YRS 2019-06-01 00:00:00 Completed [facility] Influenza Virus Vaccine Quad IM 3+ YRS 2019-06-01 00:00:00 Completed [facility] Influenza Virus Vaccine Quad IM 3+ YRS 2019-06-01 00:00:00 Completed [facility] Influenza Virus Vaccine Quad IM 3+ YRS 2019-06-01 00:00:00 Completed [facility] Influenza Virus Vaccine Quad IM 3+ YRS 2019-06-01 00:00:00 Completed [facility] Influenza Virus Vaccine Quad IM 3+ YRS 2019-06-01 00:00:00 Completed [facility] Influenza Virus Vaccine Quad IM 3+ YRS 2019-06-01 00:00:00 Completed [facility] Influenza Virus Vaccine Quad IM 3+ YRS 2019-06-01 00:00:00 Completed [facility] Influenza Virus Vaccine Quad IM 3+ YRS 2019-06-01 00:00:00 Completed [facility] Influenza Virus Vaccine Quad IM 3+ YRS 2019-06-01 00:00:00 Completed [facility] Influenza Virus Vaccine Quad IM 3+ YRS 2019-06-01 00:00:00 Completed [facility] Influenza Virus Vaccine Quad IM 3+ YRS 2019-06-01 00:00:00 Completed [facility] Influenza Virus Vaccine Quad IM 3+ YRS 2019-06-01 00:00:00 Completed [facility] Influenza Virus Vaccine Quad IM 3+ YRS 2019-06-01 00:00:00 Completed [facility] Influenza Virus Vaccine Quad IM 3+ YRS 2019-06-01 00:00:00 Completed [facility] Influenza Virus Vaccine Quad IM 3+ YRS 2019-06-01 00:00:00 Completed [facility] Influenza Virus Vaccine Quad IM 3+ YRS 2019-06-01 00:00:00 Completed [facility] Influenza Virus Vaccine Quad IM 3+ YRS 2019-06-01 00:00:00 Completed [facility] Influenza Virus Vaccine Quad IM 3+ YRS 2019-06-01 00:00:00 Completed [facility] Influenza Virus Vaccine Quad IM 3+ YRS 2019-06-01 00:00:00 Completed [facility] Influenza Virus Vaccine Quad IM 3+ YRS 2019-06-01 00:00:00 Completed [facility] Influenza Virus Vaccine Quad IM 3+ YRS 2019-06-01 00:00:00 Completed [facility] Influenza Virus Vaccine Quad IM 3+ YRS 2019-06-01 00:00:00 Completed [facility] Influenza Virus Vaccine Quad IM 3+ YRS 2019-06-01 00:00:00 Completed [facility] Influenza Virus Vaccine Quad IM 3+ YRS 2019-06-01 00:00:00 Completed [facility] Influenza Virus Vaccine Quad IM 3+ YRS 2019-06-01 00:00:00 Completed [facility] Influenza Virus Vaccine Quad IM 3+ YRS 2019-06-01 00:00:00 Completed [facility] Influenza Virus Vaccine Quad IM 3+ YRS 2019-06-01 00:00:00 Completed [facility] Influenza Virus Vaccine Quad IM 3+ YRS 2019-06-01 00:00:00 Completed [facility] Influenza Virus Vaccine Quad IM 3+ YRS 2019-06-01 00:00:00 Completed [facility] Influenza Virus Vaccine Quad IM 3+ YRS 2019-06-01 00:00:00 Completed Influenza Virus Vaccine Quad IM Multi-dose 6+ MO 2016-09-27 00:00:00 Completed [facility] Influenza Virus Vaccine Quad IM Multi-dose 6+ MO 2016-09-27 00:00:00 Completed [facility] Influenza Virus Vaccine Quad IM Multi-dose 6+ MO 2016-09-27 00:00:00 Completed [facility] Influenza Virus Vaccine Quad IM Multi-dose 6+ MO 2016-09-27 00:00:00 Completed [facility] Influenza Virus Vaccine Quad IM Multi-dose 6+ MO 2016-09-27 00:00:00 Completed [facility] Influenza Virus Vaccine Quad IM Multi-dose 6+ MO 2016-09-27 00:00:00 Completed [facility] Influenza Virus Vaccine Quad IM Multi-dose 6+ MO 2016-09-27 00:00:00 Completed [facility] Influenza Virus Vaccine Quad IM Multi-dose 6+ MO 2016-09-27 00:00:00 Completed [facility] Influenza Virus Vaccine Quad IM Multi-dose 6+ MO 2016-09-27 00:00:00 Completed [facility] Influenza Virus Vaccine Quad IM Multi-dose 6+ MO 2016-09-27 00:00:00 Completed [facility] Influenza Virus Vaccine Quad IM Multi-dose 6+ MO 2016-09-27 00:00:00 Completed [facility] Influenza Virus Vaccine Quad IM Multi-dose 6+ MO 2016-09-27 00:00:00 Completed [facility] Influenza Virus Vaccine Quad IM Multi-dose 6+ MO 2016-09-27 00:00:00 Completed [facility] Influenza Virus Vaccine Quad IM Multi-dose 6+ MO 2016-09-27 00:00:00 Completed [facility] Influenza Virus Vaccine Quad IM Multi-dose 6+ MO 2016-09-27 00:00:00 Completed [facility] Influenza Virus Vaccine Quad IM Multi-dose 6+ MO 2016-09-27 00:00:00 Completed [facility] Influenza Virus Vaccine Quad IM Multi-dose 6+ MO 2016-09-27 00:00:00 Completed [facility] Influenza Virus Vaccine Quad IM Multi-dose 6+ MO 2016-09-27 00:00:00 Completed [facility] Influenza Virus Vaccine Quad IM Multi-dose 6+ MO 2016-09-27 00:00:00 Completed [facility] Influenza Virus Vaccine Quad IM Multi-dose 6+ MO 2016-09-27 00:00:00 Completed [facility] Influenza Virus Vaccine Quad IM Multi-dose 6+ MO 2016-09-27 00:00:00 Completed [facility] Influenza Virus Vaccine Quad IM Multi-dose 6+ MO 2016-09-27 00:00:00 Completed [facility] Influenza Virus Vaccine Quad IM Multi-dose 6+ MO 2016-09-27 00:00:00 Completed [facility] Influenza Virus Vaccine Quad IM Multi-dose 6+ MO 2016-09-27 00:00:00 Completed [facility] Influenza Virus Vaccine Quad IM Multi-dose 6+ MO 2016-09-27 00:00:00 Completed [facility] Influenza Virus Vaccine Quad IM Multi-dose 6+ MO 2016-09-27 00:00:00 Completed [facility] Influenza Virus Vaccine Quad IM Multi-dose 6+ MO 2016-09-27 00:00:00 Completed [facility] Influenza Virus Vaccine Quad IM Multi-dose 6+ MO 2016-09-27 00:00:00 Completed [facility] Influenza Virus Vaccine Quad IM Multi-dose 6+ MO 2016-09-27 00:00:00 Completed [facility] Influenza Virus Vaccine Quad IM Multi-dose 6+ MO 2016-09-27 00:00:00 Completed [facility] Influenza Virus Vaccine Quad IM Multi-dose 6+ MO 2016-09-27 00:00:00 Completed [facility] Influenza Virus Vaccine Quad IM Multi-dose 6+ MO 2016-09-27 00:00:00 Completed [facility] Influenza Virus Vaccine Quad IM Multi-dose 6+ MO 2016-09-27 00:00:00 Completed [facility] Pneumococcal Polysaccharide, PPSV23 (PNEUMOVAX) 2015-11-25 00:00:00 Completed [facility] TDAP (ADACEL) VACCINE 2015-11-25 00:00:00 Completed [facility] Influenza Virus Vaccine Quad IM 3+ YRS 2015-11-25 00:00:00 Completed [facility] Influenza Virus Vaccine Quad IM 3+ YRS 2015-08-22 00:00:00 Completed [facility] Influenza Virus Vaccine Quad IM 3+ YRS 2015-08-22 00:00:00 Completed [facility] Influenza Virus Vaccine Quad IM 3+ YRS 2015-08-22 00:00:00 Completed [facility] Influenza Virus Vaccine Quad IM 3+ YRS 2015-08-22 00:00:00 Completed [facility] Influenza Virus Vaccine Quad IM 3+ YRS 2015-08-22 00:00:00 Completed [facility] Influenza Virus Vaccine Quad IM 3+ YRS 2015-08-22 00:00:00 Completed [facility] Influenza Virus Vaccine Quad IM 3+ YRS 2015-08-22 00:00:00 Completed [facility] Influenza Virus Vaccine Quad IM 3+ YRS 2015-08-22 00:00:00 Completed [facility] Influenza Virus Vaccine Quad IM 3+ YRS 2015-08-22 00:00:00 Completed [facility] Influenza Virus Vaccine Quad IM 3+ YRS 2015-08-22 00:00:00 Completed [facility] Influenza Virus Vaccine Quad IM 3+ YRS 2015-08-22 00:00:00 Completed [facility] Influenza Virus Vaccine Quad IM 3+ YRS 2015-08-22 00:00:00 Completed [facility] Influenza Virus Vaccine Quad IM 3+ YRS 2015-08-22 00:00:00 Completed [facility] Influenza Virus Vaccine Quad IM 3+ YRS 2015-08-22 00:00:00 Completed [facility] Influenza Virus Vaccine Quad IM 3+ YRS 2015-08-22 00:00:00 Completed [facility] Influenza Virus Vaccine Quad IM 3+ YRS 2015-08-22 00:00:00 [facility]pleted [facility] [facility] Influenza Virus Vaccine Quad IM 3+ YRS 2015-08-22 00:00:00 Completed [facility] Influenza Virus Vaccine Quad IM 3+ YRS 2015-08-22 00:00:00 Completed [facility] Influenza Virus Vaccine Quad IM 3+ YRS 2015-08-22 00:00:00 Completed [facility] Influenza Virus Vaccine Quad IM 3+ YRS 2015-08-22 00:00:00 Completed [facility] Influenza Virus Vaccine Quad IM 3+ YRS 2015-08-22 00:00:00 Completed [facility] Influenza Virus Vaccine Quad IM 3+ YRS 2015-08-22 00:00:00 Completed [facility] Influenza Virus Vaccine Quad IM 3+ YRS 2015-08-22 00:00:00 Completed [facility] Influenza Virus Vaccine Quad IM 3+ YRS 2015-08-22 00:00:00 Completed [facility] Influenza Virus Vaccine Quad IM 3+ YRS 2015-08-22 00:00:00 Completed [facility] Influenza Virus Vaccine Quad IM 3+ YRS 2015-08-22 00:00:00 Completed [facility] Influenza Virus Vaccine Quad IM 3+ YRS 2015-08-22 00:00:00 Completed [facility] Influenza Virus Vaccine Quad IM 3+ YRS 2015-08-22 00:00:00 Completed [facility] Influenza Virus Vaccine Quad IM 3+ YRS 2015-08-22 00:00:00 Completed [facility] Influenza Virus Vaccine Quad IM 3+ YRS 2015-08-22 00:00:00 Completed [facility] Influenza Virus Vaccine Quad IM 3+ YRS 2015-08-22 00:00:00 Completed [facility] Influenza Virus Vaccine Quad IM 3+ YRS 2015-08-22 00:00:00 Completed [facility] Influenza Virus Vaccine Quad IM 3+ YRS 2015-08-22 00:00:00 Completed [facility] Pneumococcal Polysaccharide, PPSV23 (PNEUMOVAX) 2013-08-10 00:00:00 Completed [facility] Pneumococcal Polysaccharide, PPSV23 (PNEUMOVAX) 2013-08-10 00:00:00 Completed [facility] Pneumococcal Polysaccharide, PPSV23 (PNEUMOVAX) 2013-08-10 00:00:00 Completed [facility] Pneumococcal Polysaccharide, PPSV23 (PNEUMOVAX) 2013-08-10 00:00:00 Completed [facility] Pneumococcal Polysaccharide, PPSV23 (PNEUMOVAX) 2013-08-10 00:00:00 Completed [facility] Pneumococcal Polysaccharide, PPSV23 (PNEUMOVAX) 2013-08-10 00:00:00 Completed [facility] Pneumococcal Polysaccharide, PPSV23 (PNEUMOVAX) 2013-08-10 00:00:00 Completed [facility] Pneumococcal Polysaccharide, PPSV23 (PNEUMOVAX) 2013-08-10 00:00:00 Completed [facility] Pneumococcal Polysaccharide, PPSV23 (PNEUMOVAX) 2013-08-10 00:00:00 Completed [facility] Pneumococcal Polysaccharide, PPSV23 (PNEUMOVAX) 2013-08-10 00:00:00 Completed [facility] Pneumococcal Polysaccharide, PPSV23 (PNEUMOVAX) 2013-08-10 00:00:00 Completed [facility] Pneumococcal Polysaccharide, PPSV23 (PNEUMOVAX) 2013-08-10 00:00:00 Completed [facility] Pneumococcal Polysaccharide, PPSV23 (PNEUMOVAX) 2013-08-10 00:00:00 Completed [facility] Pneumococcal Polysaccharide, PPSV23 (PNEUMOVAX) 2013-08-10 00:00:00 Completed [facility] Pneumococcal Polysaccharide, PPSV23 (PNEUMOVAX) 2013-08-10 00:00:00 Completed [facility] Pneumococcal Polysaccharide, PPSV23 (PNEUMOVAX) 2013-08-10 00:00:00 Completed [facility] Pneumococcal Polysaccharide, PPSV23 (PNEUMOVAX) 2013-08-10 00:00:00 Completed [facility] Pneumococcal Polysaccharide, PPSV23 (PNEUMOVAX) 2013-08-10 00:00:00 Completed [facility] Pneumococcal Polysaccharide, PPSV23 (PNEUMOVAX) 2013-08-10 00:00:00 Completed [facility] Pneumococcal Polysaccharide, PPSV23 (PNEUMOVAX) 2013-08-10 00:00:00 Completed [facility] Pneumococcal Polysaccharide, PPSV23 (PNEUMOVAX) 2013-08-10 00:00:00 Completed [facility] Pneumococcal Polysaccharide, PPSV23 (PNEUMOVAX) 2013-08-10 00:00:00 Completed [facility] Pneumococcal Polysaccharide, PPSV23 (PNEUMOVAX) 2013-08-10 00:00:00 Completed [facility] Pneumococcal Polysaccharide, PPSV23 (PNEUMOVAX) 2013-08-10 00:00:00 Completed [facility] Pneumococcal Polysaccharide, PPSV23 (PNEUMOVAX) 2013-08-10 00:00:00 Completed [facility] Pneumococcal Polysaccharide, PPSV23 (PNEUMOVAX) 2013-08-10 00:00:00 Completed [facility] Pneumococcal Polysaccharide, PPSV23 (PNEUMOVAX) 2013-08-10 00:00:00 Completed [facility] Pneumococcal Polysaccharide, PPSV23 (PNEUMOVAX) 2013-08-10 00:00:00 Completed [facility] Pneumococcal Polysaccharide, PPSV23 (PNEUMOVAX) 2013-08-10 00:00:00 Completed [facility] Pneumococcal Polysaccharide, PPSV23 (PNEUMOVAX) 2013-08-10 00:00:00 Completed [facility] Pneumococcal Polysaccharide, PPSV23 (PNEUMOVAX) 2013-08-10 00:00:00 Completed [facility] Pneumococcal Polysaccharide, PPSV23 (PNEUMOVAX) 2013-08-10 00:00:00 Completed [facility] Pneumococcal Polysaccharide, PPSV23 (PNEUMOVAX) 2013-08-10 00:00:00 Completed [facility] Influenza Virus Vaccine - Whole 2012-07-08 00:00:00 Completed [facility] TDAP (ADACEL) VACCINE 2008-02-07 00:00:00 Completed [facility] TDAP (ADACEL) VACCINE 2008-02-07 00:00:00 Completed [facility] TDAP (ADACEL) VACCINE 2008-02-07 00:00:00 Completed [facility] TDAP (ADACEL) VACCINE 2008-02-07 00:00:00 Completed [facility] TDAP (ADACEL) VACCINE 2008-02-07 00:00:00 Completed [facility] TDAP (ADACEL) VACCINE 2008-02-07 00:00:00 Completed [facility] TDAP (ADACEL) VACCINE 2008-02-07 00:00:00 Completed [facility] TDAP (ADACEL) VACCINE 2008-02-07 00:00:00 Completed [facility] TDAP (ADACEL) VACCINE 2008-02-07 00:00:00 Completed [facility] TDAP (ADACEL) VACCINE 2008-02-07 00:00:00 Completed [facility] TDAP (ADACEL) VACCINE 2008-02-07 00:00:00 Completed [facility] TDAP (ADACEL) VACCINE 2008-02-07 00:00:00 Completed [facility] TDAP (ADACEL) VACCINE 2008-02-07 00:00:00 Completed [facility] TDAP (ADACEL) VACCINE 2008-02-07 00:00:00 Completed [facility] TDAP (ADACEL) VACCINE 2008-02-07 00:00:00 Completed [facility] TDAP (ADACEL) VACCINE 2008-02-07 00:00:00 Completed [facility] TDAP (ADACEL) VACCINE 2008-02-07 00:00:00 Completed [facility] TDAP (ADACEL) VACCINE 2008-02-07 00:00:00 Completed [facility] TDAP (ADACEL) VACCINE 2008-02-07 00:00:00 Completed [facility] TDAP (ADACEL) VACCINE 2008-02-07 00:00:00 Completed [facility] TDAP (ADACEL) VACCINE 2008-02-07 00:00:00 Completed [facility] TDAP (ADACEL) VACCINE 2008-02-07 00:00:00 Completed [facility] TDAP (ADACEL) VACCINE 2008-02-07 00:00:00 Completed [facility] TDAP (ADACEL) VACCINE 2008-02-07 00:00:00 Completed [facility] TDAP (ADACEL) VACCINE 2008-02-07 00:00:00 Completed [facility] TDAP (ADACEL) VACCINE 2008-02-07 00:00:00 Completed [facility] TDAP (ADACEL) VACCINE 2008-02-07 00:00:00 Completed [facility] TDAP (ADACEL) VACCINE 2008-02-07 00:00:00 Completed [facility] TDAP (ADACEL) VACCINE 2008-02-07 00:00:00 Completed [facility] TDAP (ADACEL) VACCINE 2008-02-07 00:00:00 Completed [facility] TDAP (ADACEL) VACCINE 2008-02-07 00:00:00 Completed [facility] TDAP (ADACEL) VACCINE 2008-02-07 00:00:00 Completed [facility] TDAP (ADACEL) VACCINE 2008-02-07 00:00:00 Completed [facility] Vital Signs Vital Name Observation Time Observation Value Comments S ource Systolic blood pressure 2024-07-20 16:05:00 170 mm[Hg] [facility] Diastolic blood pressure 2024-07-20 16:05:00 74 mm[Hg] [facility] Heart rate 2024-07-20 16:05:00 76 /min [facility] Respiratory rate 2024-07-20 16:05:00 18 /min [facility] Body height 2024-07-20 16:05:00 162.6 cm [facility] Body weight 2024-07-20 16:05:00 87.799 kg [facility] BMI 2024-07-20 16:05:00 33.22 kg/m2 [facility] Oxygen saturation in Arterial blood by Pulse oximetry 2024-07-20 16:05:00 96 /min [facility] Systolic blood pressure 2024-07-09 02:13:00 141 mm[Hg] [facility] Diastolic blood pressure 2024-07-09 02:13:00 76 mm[Hg] [facility] Heart rate 2024-07-09 02:13:00 82 /min [facility] Body temperature 2024-07-09 02:13:00 36.61 Su [facility] Respiratory rate 2024-07-09 02:13:00 18 /min [facility] Oxygen saturation in Arterial blood by Pulse oximetry 2024-07-09 02:13:00 95 /min [facility] Body height 2024-07-08 22:57:00 162.6 cm [facility] Body weight 2024-07-08 22:57:00 86.637 kg [facility] BMI 2024-07-08 22:57:00 32.79 kg/m2 [facility] Systolic blood pressure 2024-07-07 19:55:00 143 mm[Hg] [facility] Diastolic blood pressure 2024-07-07 19:55:00 65 mm[Hg] [facility] Heart rate 2024-07-07 19:55:00 93 /min [facility] Respiratory rate 2024-07-07 19:55:00 14 /min [facility] Oxygen saturation in Arterial blood by Pulse oximetry 2024-07-07 19:55:00 92 /min [facility] height 2024-05-17 13:10:00 64 [in_i] [facility] 2024-05-17 13:10:00 87.09 kg [facility] bmi 2024-05-17 13:10:00 32.95 kg/m2 [facility] temperature 2024-05-17 13:10:00 97.2 [degF] [facility] respiratory rate 2024-05-17 13:10:00 16 /min [facility] 2024-05-17 13:10:00 64 /min [facility] blood pressure systolic 2024-05-17 13:10:00 140 mm[Hg] [facility] diastolic 2024-05-17 13:10:00 82 mm[Hg] [facility] Systolic blood pressure 2024-04-28 22:40:00 126 mm[Hg] [facility] Diastolic blood pressure 2024-04-28 22:40:00 80 mm[Hg] [facility] Heart rate 2024-04-28 22:40:00 84 /min [facility] Respiratory rate 2024-04-28 22:40:00 14 /min [facility] Oxygen saturation in Arterial blood by Pulse oximetry 2024-04-28 22:40:00 97 /min [facility] Body temperature 2024-04-28 16:00:00 35.94 Su [facility] Body weight 2024-04-28 09:00:00 87.998 kg [facility] BMI 2024-04-28 09:00:00 32.28 kg/m2 [facility] Body height 2024-04-26 06:02:00 165.1 cm [facility] Systolic blood pressure 2024-04-23 19:53:00 167 mm[Hg] [facility] Diastolic blood pressure 2024-04-23 19:53:00 65 mm[Hg] [facility] Heart rate 2024-04-23 19:53:00 70 /min [facility] Body height 2024-04-23 19:53:00 165.1 cm [facility] Body weight 2024-04-23 19:53:00 88.769 kg [facility] BMI 2024-04-23 19:53:00 32.57 kg/m2 [facility] Oxygen saturation in Arterial blood by Pulse oximetry 2024-04-23 19:53:00 99 /min [facility] Systolic blood pressure 2022-12-18 20:22:00 137 mm[Hg] [facility] Diastolic blood pressure 2022-12-18 20:22:00 80 mm[Hg] [facility] Heart rate 2022-12-18 20:22:00 66 /min [facility] Body temperature 2022-12-18 20:22:00 36.11 Su [facility] Respiratory rate 2022-12-18 20:22:00 17 /min [facility] Body height 2022-12-18 20:22:00 162.6 cm [facility] Body weight 2022-12-18 20:22:00 90.855 kg [facility] BMI 2022-12-18 20:22:00 34.38 kg/m2 [facility] Oxygen saturation in Arterial blood by Pulse oximetry 2022-12-18 20:22:00 96 /min [facility] Systolic blood pressure 2022-11-08 17:49:00 137 mm[Hg] [facility] Diastolic blood pressure 2022-11-08 17:49:00 76 mm[Hg] [facility] Heart rate 2022-11-08 17:49:00 65 /min [facility] Body temperature 2022-11-08 17:49:00 36.61 Su [facility] Respiratory rate 2022-11-08 17:49:00 19 /min [facility] Oxygen saturation in Arterial blood by Pulse oximetry 2022-11-08 17:49:00 96 /min [facility] Body height 2022-11-08 00:41:00 162.6 cm [facility] Body weight 2022-11-08 00:41:00 88.451 kg [facility] BMI 2022-11-08 00:41:00 33.45 kg/m2 [facility] Systolic blood pressure 2022-11-07 20:23:57 205 mm[Hg] [facility] Diastolic blood pressure 2022-11-07 20:23:57 88 mm[Hg] [facility] Heart rate 2022-11-07 20:23:57 67 /min [facility] Respiratory rate 2022-11-07 20:23:57 18 /min [facility] Oxygen saturation in Arterial blood by Pulse oximetry 2022-11-07 20:23:57 100 /min [facility] Body height 2022-11-07 20:08:56 162.6 cm [facility] Body weight 2022-11-07 20:08:56 88.451 kg [facility] BMI 2022-11-07 20:08:56 33.45 kg/m2 [facility] Body temperature 2022-11-07 18:33:00 35.67 Su [facility] Systolic blood pressure 2022-10-03 21:00:00 138 mm[Hg] [facility] Diastolic blood pressure 2022-10-03 21:00:00 58 mm[Hg] [facility] Heart rate 2022-10-03 21:00:00 63 /min [facility] Body temperature 2022-10-03 21:00:00 36.44 Su [facility] Body height 2022-10-03 21:00:00 162.6 cm [facility] Body weight 2022-10-03 21:00:00 94.031 kg [facility] BMI 2022-10-03 21:00:00 35.58 kg/m2 [facility] Oxygen saturation in Arterial blood by Pulse oximetry 2022-10-03 21:00:00 94 /min [facility] Systolic blood pressure 2022-09-23 19:43:00 120 mm[Hg] [facility] Diastolic blood pressure 2022-09-23 19:43:00 57 mm[Hg] [facility] Heart rate 2022-09-23 19:43:00 72 /min [facility] Body temperature 2022-09-23 19:43:00 36.67 Su [facility] Body height 2022-09-23 19:43:00 162.6 cm [facility] Body weight 2022-09-23 19:43:00 91.853 kg [facility] BMI 2022-09-23 19:43:00 34.76 kg/m2 [facility] Oxygen saturation in Arterial blood by Pulse oximetry 2022-09-23 19:43:00 94 /min [facility] Systolic blood pressure 2022-09-19 17:09:00 158 mm[Hg] [facility] Diastolic blood pressure 2022-09-19 17:09:00 75 mm[Hg] [facility] Heart rate 2022-09-19 17:09:00 62 /min [facility] Body temperature 2022-09-19 17:09:00 36.22 Su [facility] Respiratory rate 2022-09-19 17:09:00 18 /min [facility] Oxygen saturation in Arterial blood by Pulse oximetry 2022-09-19 17:09:00 93 /min [facility] Body weight 2022-09-19 10:01:00 94.575 kg [facility] BMI 2022-09-19 10:01:00 35.79 kg/m2 [facility] Body height 2022-09-17 09:52:00 162.6 cm [facility] Systolic blood pressure 2022-03-22 20:25:00 147 mm[Hg] [facility] Diastolic blood pressure 2022-03-22 20:25:00 64 mm[Hg] [facility] Heart rate 2022-03-22 20:25:00 60 /min [facility] Oxygen saturation in Arterial blood by Pulse oximetry 2022-03-22 20:25:00 99 /min [facility] Body temperature 2022-03-22 20:23:00 36.28 Su [facility] Respiratory rate 2022-03-22 20:23:00 17 /min [facility] Body weight 2022-03-22 20:23:00 93.033 kg [facility] BMI 2022-03-22 20:23:00 35.21 kg/m2 [facility] Systolic blood pressure 2022-01-09 18:15:00 144 mm[Hg] [facility] Diastolic blood pressure 2022-01-09 18:15:00 65 mm[Hg] [facility] Heart rate 2022-01-09 18:11:00 58 /min [facility] Respiratory rate 2022-01-09 18:11:00 18 /min [facility] Body height 2022-01-09 18:11:00 162.6 cm [facility] Body weight 2022-01-09 18:11:00 90.855 kg [facility] BMI 2022-01-09 18:11:00 34.38 kg/m2 [facility] Oxygen saturation in Arterial blood by Pulse oximetry 2022-01-09 18:11:00 96 /min [facility] Systolic blood pressure 2024-07-20 16:05:00 170 mm[Hg] [facility] Diastolic blood pressure 2024-07-20 16:05:00 74 mm[Hg] [facility] Heart rate 2024-07-20 16:05:00 76 /min [facility] Respiratory rate 2024-07-20 16:05:00 18 /min [facility] Body height 2024-07-20 16:05:00 162.6 cm [facility] Body weight 2024-07-20 16:05:00 87.799 kg [facility] BMI 2024-07-20 16:05:00 33.22 kg/m2 [facility] Oxygen saturation in Arterial blood by Pulse oximetry 2024-07-20 16:05:00 96 /min [facility] Body temperature 2024-07-09 02:13:00 36.61 Su [facility] Procedures Procedure Date / Time Performed Performing Clinician Source POCT GLUCOSE (AUTOMATED) 2024-07-09 01:57:00 Altaf Coley [facility] LIPASE 2024-07-09 00:18:00 Shahram Coley [facility] TROPONIN I 2024-07-09 00:18:00 Shahram Coley [facility] COMP. METABOLIC PANEL (14537) 2024-07-09 00:18:00 Shahram Coley [facility] CBC WITH DIFF 2024-07-09 00:18:00 Shahram Coley [facility] COMP. METABOLIC PANEL ([id number]) 2024-07-09 00:18:00 Shahram Coley [facility] XR CHEST 2 VW 2024-07-08 23:37:25 Shahram Coley [facility] MR CERVICAL SPINE WO CONTRAST 2024-07-07 19:58:56 Alan Mcclain [facility] POCT GLUCOSE (AUTOMATED) 2024-04-28 21:08:00 Kenisha Lynn [facility] POCT GLUCOSE (AUTOMATED) 2024-04-28 16:32:00 [facility] POCT GLUCOSE (AUTOMATED) 2024-04-28 12:40:00 Kenisha Lynn [facility] BASIC METABOLIC PANEL (NA, K, CL, CO2, GLUCOSE, BUN, CREATININE, CA) 2024-04-28 08:59:00 Lucy Lynn [facility] POCT GLUCOSE (AUTOMATED) 2024-04-28 01:47:00 Kenisha Lynn [facility] POCT GLUCOSE (AUTOMATED) 2024-04-27 21:42:00 Kenisha Lynn [facility] POCT GLUCOSE (AUTOMATED) 2024-04-27 16:24:00 [facility] TRANSTHORACIC ECHO (TTE) COMPLETE 2024-04-27 15:14:00 Bruce Bates [facility] POCT GLUCOSE (AUTOMATED) 2024-04-27 12:40:00 [facility] MAGNESIUM 2024-04-27 08:49:00 [facility]OL[facility] (NA, K, CL, CO2, GLUCOSE, BUN, CREATININE, CA) 2024-04-27 08:49:00 Mitul West [facility] [facility] CBC WITH DIFF 2024-04-27 08:49:00 [facility] POCT GLUCOSE (AUTOMATED) 2024-04-27 06:51:00 Kenisha Lynn [facility] POCT GLUCOSE (AUTOMATED) 2024-04-27 01:49:00 Kenisha Lynn [facility] POCT GLUCOSE (AUTOMATED) 2024-04-26 20:57:00 [facility] POCT GLUCOSE (AUTOMATED) 2024-04-26 16:23:00 [facility]isha [facility] POCT GLUCOSE (AUTOMATED) 2024-04-26 12:53:00 Kenisha [facility] MAGNESIUM 2024-04-26 09:01:00 Shira Salgado [facility] BASIC METABOLIC PANEL (NA, K, CL, CO2, GLUCOSE, BUN, CREATININE, CA) 2024-04-26 09:01:[address] [facility] CBC WITH DIFF 2024-04-26 09:01:00 [facility] CRITICAL CARE 2024-04-26 04:24:58 Daniele Maharaj [facility] DUPLEX VENOUS LEG LEFT - BY VASCULAR LAB 2024-04-26 02:35:00 [facility] URINALYSIS 2024-04-26 02:32:00 Daniele Maharaj [facility] THROAT CULTURE 2024-04-26 02:20:00 Daniele Maharaj [facility] RAPID STREP SCREEN FOR GROUP A 2024-04-26 02:20:00 [facility] INFLUENZA A/B RSV COVID NAAT 2024-04-26 02:20:00 Daniele Maharaj [facility] LAB ONLY COVID INTERPRETATION 2024-04-26 02:20:00 Daniele Maharaj [facility] LIPASE 2024-04-26 02:16:00 Daniele Maharaj [facility] MAGNESIUM 2024-04-26 02:16:00 Daniele Maharaj [facility] TROPONIN I 2024-04-26 02:16:00 Daniele Maharaj [facility] COMP. METABOLIC PANEL (93519) 2024-04-26 02:16:00 [facility] CBC WITH DIFF 2024-04-26 02:16:00 Daniele Maharaj [facility] GLYCOSYLATED HEMOGLOBIN (A1C) 2024-04-26 02:16:[address] [facility] N-TERMINAL PRO-BNP 2024-04-26 02:16:00 Nicko [facility] GLYCOSYLATED HEMOGLOBIN (A1C) 2024-04-26 02:16:[address] [facility] HB ECG ROUTINE & RHYTHM STRIP 2024-04-26 02:10:27 [facility] SLEEP STUDY DATA REPORT 2024-04-13 18:24:39 Loni Babb [facility] SLEEP LAB RESULTS 2024-04-13 18:23:53 Srinivasa Babb [facility] SLEEP STUDY 2024-04-09 20:15:37 Sushila Babb [facility] EXTERNAL PROVIDER RECORDS 2023-10-07 06:01:00 Do ctor Unassigned, Alder [facility] AUTHORIZATION FOR RELEASE OF PHI 2023-10-03 06:01:00 Doctor Unassigned, Alder [facility] AUTHORIZATION FOR RELEASE OF PHI 2023-09-30 06:01:00 Doctor Unassigned, Alder [facility] AUTHORIZATION FOR RELEASE OF PHI 2023-09-11 06:01:00 Doctor Unassigned, Alder [facility] SLEEP STUDY DATA REPORT 2023-02-20 05:01:00 Doct or Unassigned, Alder [facility] MEDICAL RELEASE/CLEARANCE FORMS 2023-02-10 05:01:00 Doctor Unassigned, Alder [facility] XR CHEST 1 VW 2022-11-07 23:24:39 [facility]ill [facility] CHEST 1 VW 2022-11-07 23:24:39 [facility] PROCEDURE 2022-11-07 21:50:49 Eduardo Esteban [facility] ELECTROPHYSIOLOGY PROCEDURE 2022-11-07 21:50:00 Eduardo Esteban [facility] CATH PROCEDURE LOG 2022-11-07 20:41:05 Eduardo [facility] CATH PROCEDURE LOG 2022-11-07 20:41:05 Eduardo [facility] ECG ROUTINE & RHYTHM STRIP 2022-11-07 19:06:44 Eduardo Esteban [facility] ASSIGNMENT OF BENEFITS 2022-11-07 17:53:08 Docto r Unassigned, Alder [facility] POCT GLUCOSE (AUTOMATED) 2022-09-19 17:29:00 Russell Paul [facility] POCT GLUCOSE (AUTOMATED) 2022-09-19 13:40:00 Russell Paul [facility] POCT GLUCOSE (AUTOMATED) 2022-09-19 01:48:00 Russell Paul [facility] POCT GLUCOSE (AUTOMATED) 2022-09-18 22:36:00 Russell Paul [facility] POCT GLUCOSE (AUTOMATED) 2022-09-18 17:20:00 Russell Paul [facility] POCT GLUCOSE (AUTOMATED) 2022-09-18 13:48:00 Russell Paul [facility] TROPONIN I 2022-09-18 10:37:00 Bruce Bates [facility] BASIC METABOLIC PANEL (NA, K, CL, CO2, GLUCOSE, BUN, CREATININE, CA) 2022-09-18 10:37:00 Francine Hein [facility] LIPID PANEL (63184)(TOTAL CHOLESTEROL, TRIGLYCERIDES, HDL) 2022-09-18 10:37:00 Bruce Bates [facility] N-TERMINAL PRO-BNP 2022-09-18 10:37:00 Bruce Bates [facility] LIPID PANEL (60745)(TOTAL CHOLESTEROL, TRIGLYCERIDES, HDL) 2022-09-18 10:37:00 Paulo Sendkarina K.H. [facility] POCT GLUCOSE (AUTOMATED) 2022-09-18 02:57:00 Russell Paul [facility] POCT GLUCOSE (AUTOMATED) 2022-09-17 22:33:00 Russell Paul [facility] MAGNESIUM 2022-09-17 20:25:00 Russell Paul [facility] BASIC METABOLIC PANEL (NA, K, CL, CO2, GLUCOSE, BUN, CREATININE, CA) 2022-09-17 20:25:00 Russell Paul [facility] TRANSTHORACIC ECHO (TTE) COMPLETE 2022-09-17 19:43:00 Russell Paul [facility] POCT GLUCOSE (AUTOMATED) 2022-09-17 17:33:00 Russell Paul [facility] POCT GLUCOSE (AUTOMATED) 2022-09-17 13:43:00 Russell Paul [facility] TROPONIN I 2022-09-17 10:44:00 Shira Salgado [facility] CBC WITH DIFF 2022-09-17 10:44:00 Russell Paul [facility] URINALYSIS 2022-09-16 22:00:00 Jack[facility] CHEST 1 VW 2022-09-16 21:37:25 Jacki Samuels [facility] HB ECG ROUTINE & RHYTHM STRIP 2022-09-16 21:23:34 Jacki Samuels [facility] MAGNESIUM 2022-09-16 21:19:00 Jack[facility] TROPONIN I 2022-09-16 21:19:00 Jacki Samuels [facility] THYROID STIMULATING HORMONE 2022-09-16 21:19:00 Jacki Razo ms [facility] COMP. METABOLIC PANEL (17029) 2022-09-16 21:19:00 Jacki Samuels [facility] CBC WITH DIFF 2022-09-16 21:19:00 Jacki Samuels [facility] GLYCOSYLATED HEMOGLOBIN (A1C) 2022-09-16 21:19:00 Shira Salgado [facility] HB ECG ROUTINE & RHYTHM STRIP 2022-09-16 21:13:59 Jacki Samuels [facility] NOTICE OF PRIVACY PRACTICES 2022-09-16 20:53:33 Doctor Unassigned, Alder [facility] CONSENT/REFUSAL FOR DIAGNOSIS AND TREATMENT 2022-09-16 20:53:06 Doctor Unassigned, Alder [facility] MEDICAL RELEASE/CLEARANCE FORMS 2022-07-10 06:01:00 Doctor Unassigned, Alder [facility] DME/SUPPLY JUSTIFICATION 2022-06-04 05:01:00 Doc tor Unassigned, Alder [facility] DME/SUPPLY JUSTIFICATION 2019-12-19 05:01:00 Doc mike Unassigned, Alder [facility] MICROALBUMIN URINE 2016-09-27 22:51:00 Mick Chaparro [facility] BI SCREENING MAMMOGRAM BILATERAL 2016-02-06 18:44:00 Get Whittington [facility] TESTING MANAGER ORDER/REPORT PROCEDURE 2015-04-21 17:25:00 Get Perez [facility] HCV ANTIBODY 2013-05-25 22:10:00 Zurdo Hall [facility] BI SCREENING MAMMOGRAM BILATERAL 2012-11-30 19:06:00 Reji Barriga [facility] COLONOSCOPY (ENDO) 2009-05-16 14:10:10 Doctor Un assigned, Alder [facility] Encounters Start Date/Time End Date/Time Encounter Type Admission Type Attending Clinicians Care Facility Care Department Encounter ID Source 2024-05-17 13:41:01 Outpatient Bret Lamb [facility] [id number] [facility] 2024-07-22 00:00:00 2024-12-09 10:01:22 Alan Malave [facility] 1.2840.114 350.1.13.10 4.2.7.2.686 [id number] [facility] 2024-04-09 00:00:00 2024-10-16 07:09:32 Orders Only Sushila Babb [facility] 1.2.840.114 350.1.13.10 4.2.7.2.686 [id number] [facility] 2024-04-13 00:00:00 2024-10-16 07:08:02 Orders Only Sushila Babb [facility]) 1.2.840.114 350.1.13.10 4.2.7.2.686 [id number] [facility] 2024-04-13 00:00:00 2024-10-16 07:07:55 Orders Only Sushila Babb [facility] ([facility]) 1.2.840.114 350.1.13.10 4.2.7.2.686 [id number] [facility] 2024-05-24 00:00:00 2024-10-16 06:56:13 Orders Only BrewerValencia Perla [facility] 1.2840.114 350.1.13.10 4.2.7.2.686 [id number] [facility] 2012-11-30 00:00:00 2024-10-16 04:47:53 Orders Only Reji Barriga [facility] ([facility]) 1.2840.114 350.1.13.10 4.2.7.2.686 [id number] [facility] 2024-10-12 00:00:00 2024-10-12 00:00:00 Scanned Documents Doctor Unassigned, Alder 1.840.1 [id number] 3.104.2.7 .[id number] [id number] [facility] 2024-07-20 10:00:00 2024-07-20 10:50:14 Outpatient R ALAN MCCLAIN [facility] [id number] [facility] 2024-07-20 10:00:00 2024-07-20 10:50:14 Office Visit Alan Mcclain Gene 1..840.1 [id number] 3.104.2.7 .3.212084 .8 [id number] [facility] 2024-07-19 00:00:00 2024-07-19 00:00:00 Travel 1.2840.1 [id number] 3.104.2.7 .3.651265 .8 1.2840.114 350.1.13.10 4.2.7.3.698 [id number] [facility] 2024-07-08 17:12:00 2024-07-08 20:43:00 Emergency X SHAHRAM COLEY ERICCA [facility] ERT [id number] [facility] 2024-07-08 17:12:00 2024-07-08 20:43:00 Emergency Shahram Coley [facility] 1.2.840.114 350.1.13.10 4.2.7.2.686 [id number] [facility] 2024-07-07 12:30:03 2024-07-07 23:59:00 Outpatient ALAN MEMBRENO [facility] [id number] [facility] 2024-07-07 12:30:03 2024-07-07 23:59:00 Hospital Encounter Alan Mcclain [facility] ([facility]) 1.2.840.114 350.1.13.10 4.2.7.2.686 [id number] [facility] 2024-06-03 13:05:59 2024-06-03 23:59:00 Outpatient Chris LILI GARCIAS [facility] [id number] [facility] 2024-06-03 13:05:59 2024-06-03 23:59:00 Hospital Encounter Lili Garcias [facility] 1.2.840.114 350.1.13.10 4.2.7.2.686 [id number] [facility] 2024-05-24 11:40:00 2024-05-24 11:40:00 Outpatient ALAN MEMBRENO [facility] [id number] [facility] 2024-05-24 00:00:00 2024-05-24 00:00:00 (TEL) CLS CLS [id number] [place] [facility] 2024-05-21 00:00:00 2024-05-21 00:00:00 (TEL) CLS CLS [id number] [place] [facility] 2024-05-17 00:00:00 2024-05-17 00:00:00 Office Visit- New Pt.- Level 4 CLS CLS [id number] Hussein juares 2024-05-17 00:00:00 2024-05-17 00:00:00 (TEL) CLS CLS [id number] Hussein juares 2024-05-06 20:00:00 2024-05-06 20:00:00 Outpatient LOTTIE PUENTE STRAHIL [facility] [id number] [facility] 2024-04-29 00:00:00 2024-04-29 15:55:43 Transition of Care Niya Smith ..840.114 350.1.13.10 4.2.7.2.686 [id number] [facility] 2024-04-25 20:44:00 2024-04-28 18:24:00 Inpatient LUCY VERDUZCO [facility] [id number] [facility] 2024-04-25 20:44:00 2024-04-28 18:24:00 Hospital Encounter Daniele Maharaj David Edionwe, [facility] ..840.114 350.1.13.10 4.2.7.2.686 [id number] [facility] 2024-04-23 14:20:00 2024-04-23 15:28:41 Outpatient R ALAN MCCLAIN [facility] [id number] [facility] 2024-04-23 14:20:00 2024-04-23 15:28:41 Office Visit Alan Mcclain [facility] ..840.114 350.1.13.10 4.2.7.2.686 [id number] [facility] 2024-04-12 20:00:00 2024-04-12 22:30:00 Quality Associate Visit 1, [facility] Sleep Lab Bed Lottie Truong T 1, [facility] Sleep Lab Bed [facility] 1.84.114 350.1.13.10 4.2.7.2.686 [id number] [facility] 2024-04-12 20:00:00 2024-04-12 20:00:00 Outpatient R LOTTIE TRUONG STRAHIL [facility] [id number] [facility] 2024-04-09 00:00:00 2024-04-09 10:24:39 Telephone Alan Mcclain [facility] JOSE [facility] 1.84.114 350.1.13.10 4.2.7.2.686 [id number] [facility] 2015-11-25 00:00:00 2024-02-17 02:33:24 Mobile Device Encounter Get Whittington [facility] 1..114 350.1.13.10 4.2.7.2.686 [id number] [facility] 2023-12-29 00:00:00 2023-12-29 23:59:00 Outpatient R ALEXEY CLARKE ALEXEY [facility] [id number] [facility] 2023-12-29 00:00:00 2023-12-29 23:59:00 Hospital Encounter Alexey Clarke [facility] 1.84.114 350.1.13.10 4.2.7.2.686 [id number] [facility] 2023-10-29 00:00:00 2023-10-29 00:00:00 Patient Secure Msg Doctor Unassigned, Alder [facility] 1.840.114 350.1.13.10 4.2.7.2.686 [id number] [facility] 2023-10-07 00:00:00 2023-10-07 00:00:00 Orders Only Doctor Unassigned, Alder [facility] 1.2.840.114 350.1.13.10 4.2.7.2.686 [id number] [facility] 2023-10-03 00:00:00 2023-10-03 00:00:00 Orders Only Doctor Unassigned, Alder [facility] 1.2.840.114 350.1.13.10 4.2.7.2.686 [id number] [facility] 2023-09-30 00:00:00 2023-09-30 00:00:00 Orders Only Doctor Unassigned, Alder [facility] 1.2.840.114 350.1.13.10 4.2.7.2.686 [id number] [facility] 2023-09-12 00:00:00 2023-09-12 00:00:00 Telephone Bruce Bates [facility] 1.2.840.114 350.1.13.10 4.2.7.2.686 [id number] [facility] 2023-09-11 00:00:00 2023-09-11 00:00:00 Orders Only Doctor Unassigned, Alder [facility] 1.2.840.114 350.1.13.10 4.2.7.2.686 [id number] [facility] 2023-07-03 11:30:00 2023-07-03 11:30:00 Outpatient RICARDO DOMINGUEZ MUHIE [facility] [id number] [facility] 2023-06-30 00:00:00 2023-06-30 23:59:00 Outpatient DM KAPOOR CHOCKALINGA M [facility] [id number] [facility] 2023-06-30 00:00:00 2023-06-30 23:59:00 Hospital Rica Mirandaalinyue madhu [facility] 1..840.114 350.1.13.10 4.2.7.2.686 [id number] [facility] 2023-06-04 11:00:00 2023-06-04 11:00:00 Outpatient R LOTTIE TRUONG STRAMEL [facility] [id number] [facility] 2023-05-21 20:00:00 2023-05-21 20:00:00 Outpatient R LOTTIE TRUONG STRAMEVicky [facility] [id number] [facility] 2023-04-23 14:30:00 2023-04-23 14:30:00 Outpatient R LOTTIE TRUONG STRAMEVicky [facility] [id number] [facility] 2023-04-21 14:30:00 2023-04-21 14:30:00 Outpatient BRUCE MERCADO [facility] [id number] [facility] 2023-04-17 00:00:00 2023-04-17 00:00:00 Bruce Rondon [facility] 1..840.114 350.1.13.10 4.2.7.2.686 [id number] [facility] 2023-03-21 11:00:00 2023-03-21 11:00:00 Outpatient EDUARDO BERRIOS [facility] [id number] [facility] 2023-02-20 20:00:00 2023-02-20 22:30:00 Quality Associate Visit 1, [facility] Sleep Lab Bed Lottie Truong [facility] 1..840.114 350.1.13.10 4.2.7.2.686 [id number] [facility] 2023-02-20 20:00:00 2023-02-20 20:00:00 Outpatient R HARMEET, MARTINL HARMEET, STRAHIL [facility] [id number] [facility] 2023-02-20 00:00:00 2023-02-20 00:00:00 Orders Only Doctor Unassigned, Alder [facility] 1.2.840.114 350.1.13.10 4.2.7.2.686 [id number] [facility] 2023-02-18 00:00:00 2023-02-18 00:00:00 Telephone Bruce Bates [facility] 1.2.840.114 350.1.13.10 4.2.7.2.686 [id number] [facility] 2023-02-10 00:00:00 2023-02-10 00:00:00 Telephone Bruce BatesHDrew [facility] 1.2.840.114 350.1.13.10 4.2.7.2.686 [id number] [facility] 2023-02-10 00:00:00 2023-02-10 00:00:00 Orders Only Doctor Unassigned, Alder [facility] 1.2.840.114 350.1.13.10 4.2.7.2.686 [id number] [facility] 2023-02-06 00:00:00 2023-02-06 00:00:00 Telephone Bruce BatesHDrew [facility] 1.2.840.114 350.1.13.10 4.2.7.2.686 [id number] [facility] 2023-01-30 00:00:00 2023-01-30 00:00:00 Refill Bruce BatesHDrew [facility] 1.2.840.114 350.1.13.10 4.2.7.2.686 [id number] [facility] 2023-01-09 00:00:00 2023-01-09 00:00:00 [facility] 1.2.840.114 350.1.13.10 4.2.7.2.686 [id number] [facility] 2022-12-30 14:00:00 2022-12-30 14:00:00 Outpatient R BRUCE BATES [facility] [id number] [facility] 2022-12-26 13:32:41 2022-12-26 23:59:00 Outpatient R EDUARDO ESTEBAN [facility] [id number] [facility] 2022-12-23 14:00:00 2022-12-23 14:00:00 Outpatient R BRUCE BATES [facility] [id number] [facility] 2022-12-18 15:30:00 2022-12-18 16:00:00 Office Visit Lottie Truong [facility] 1.2.840.114 350.1.13.10 4.2.7.2.686 [id number] [facility] 2022-12-18 15:30:00 2022-12-18 15:30:00 Outpatient R LOTTIE TRUONG STRAHIL [facility] [id number] [facility] 2022-11-28 14:19:43 2022-11-28 23:59:00 Outpatient R KIRILL ALVARADO [facility] [id number] [facility] 2022-11-07 11:53:00 2022-11-08 19:04:00 Outpatient [facility] [id number] [facility] 2022-11-07 11:53:00 2022-11-08 19:04:00 Hospital Encounter Eduardo EstebanOrlando Faiza [facility] ([facility] 1.2.840.114 350.1.13.10 4.2.7.2.686 [id number] [facility] 2022-11-07 13:45:00 2022-11-07 15:15:00 Surgery Carlito [facility] ([facility]) 1.2.840.114 350.1.13.10 4.2.7.2.686 [id number] [facility] 2022-11-07 00:00:00 2022-11-07 00:00:00 Orders Only Doctor Unassigned, Alder [facility] 1.2.840.114 350.1.13.10 4.2.7.2.686 [id number] [facility] 2022-11-06 14:30:00 2022-11-06 14:30:00 Outpatient R LOTTEI TRUONG STRAHIL [facility] [id number] [facility] 2022-11-05 12:45:00 2022-11-05 13:00:00 Quality Associate Visit Pob, Adc Lab Main Carlito [facility] 1.2840.114 350.1.13.10 4.2.7.2.686 [id number] [facility] 2022-11-05 12:45:00 2022-11-05 12:45:00 Outpatient R CARLITO [facility] [id number] [facility] 2022-10-24 00:00:00 2022-10-24 00:00:00 Telephone Carlito [facility] MEDICAL OFFICE BUILDING 1.2840.114 350.1.13.10 4.2.7.2.686 [id number] [facility] 2022-10-03 15:00:00 2022-10-03 15:52:05 Outpatient R EDUARDO ESTEBAN [facility] [id number] [facility] 2022-10-03 15:00:00 2022-10-03 15:52:05 Office Visit Eduardo Esteban [facility] 1.2.840.114 350.1.13.10 4.2.7.2.686 [id number] [facility] 2022-10-01 00:00:00 2022-10-01 00:00:00 Telephone Brian George [facility] 1.2.840.114 350.1.13.10 4.2.7.2.686 [id number] [facility] 2022-10-01 00:00:00 2022-10-01 00:00:00 Telephone Eduardo Esteban [facility] 1.2.840.114 350.1.13.10 4.2.7.2.686 [id number] [facility] 2022-10-01 00:00:00 2022-10-01 00:00:00 Telephone Bruce Bates [facility] 1.2.840.114 350.1.13.10 4.2.7.2.686 [id number] [id number] [facility] 2022-09-29 00:00:00 2022-09-29 00:00:00 Telephone Cruz Huddleston [facility] 1.2.840.114 350.1.13.10 4.2.7.2.686 [id number] [facility] 2022-09-29 00:00:00 2022-09-29 00:00:00 Telephone Bruce BatesHDrew [facility] 1.2.840.114 350.1.13.10 4.2.7.2.686 [id number] [id number] [facility] 2022-09-23 13:35:42 2022-09-23 23:59:00 Outpatient R BRUCE BATES [facility] [id number] [facility] 2022-09-23 13:30:00 2022-09-23 14:15:59 Office Visit Bruce Bates [facility] 1.840.114 350.1.13.10 4.2.7.2.686 [id number] [facility] 2022-09-20 00:00:00 2022-09-20 00:00:00 Transition of Care Niranjan Fisher [facility] 1..840.114 350.1.13.10 4.2.7.2.686 [id number] [facility] 2022-09-16 15:07:00 2022-09-19 15:00:00 Inpatient X LUCY LYNN [facility] [id number] [facility] 2022-09-16 15:07:00 2022-09-19 15:00:00 Hospital Encounter Jacki Samuels Yaman Morris, David [facility] 1.840.114 350.1.13.10 4.2.7.2.686 [id number] [facility] 2022-08-07 14:30:00 2022-08-07 14:30:00 Outpatient R BRUCE BATES [facility] [id number] [facility] 2022-07-12 13:00:00 2022-07-12 13:00:00 Outpatient BRUCE MERCADO [facility] [id number] [facility] 2022-07-10 00:00:00 2022-07-10 00:00:00 Orders Only Doctor Unassigned, Alder [facility] 1.2.840.114 350.1.13.10 4.2.7.2.686 [id number] [id number] [facility] 2022-07-09 00:00:00 2022-07-09 00:00:00 Telephone Bruce BatesHDrew [facility] 1.2.840.114 350.1.13.10 4.2.7.2.686 [id number] [id number] [facility] 2022-07-08 00:00:00 2022-07-08 00:00:00 Refill Bruce BatesHDrew [facility] 1.2.840.114 350.1.13.10 4.2.7.2.686 [id number] [id number] [facility] 2022-06-12 00:00:00 2022-06-12 00:00:00 Telephone Lottie Truong [facility] 1.2.840.114 350.1.13.10 4.2.7.2.686 [id number] [facility] 2022-06-04 00:00:00 2022-06-04 00:00:00 Telephone Lottie Truong [facility] 1.2.840.114 350.1.13.10 4.2.7.2.686 [id number] [facility] 2022-06-04 00:00:00 2022-06-04 00:00:00 Orders Only Doctor Unassigned, Alder [facility] 1.2.840.114 350.1.13.10 4.2.7.2.686 [id number] [facility] 2022-03-22 15:20:00 2022-03-22 15:50:19 Outpatient EDUARDO BERRIOS [facility] [id number] [facility] 2022-03-22 15:20:00 2022-03-22 15:50:19 Office [facility] 1.2.840.114 350.1.13.10 4.2.7.2.686 [id number] [facility] 2022-03-22 15:20:00 2022-03-22 15:50:19 Outpatient R EDUARDO ESTEBAN [facility] [id number] [facility] 2022-03-22 10:20:00 2022-03-22 10:20:00 Outpatient R EDUARDO ESTEBAN [facility] [id number] [facility] 2022-03-18 00:00:00 2022-03-18 00:00:00 Telephone Carlito [facility] 1.2.840.114 350.1.13.10 4.2.7.2.686 [id number] [id number] [facility] 2022-03-15 08:20:00 2022-03-15 08:20:00 Outpatient R EDUARDO ESTEBAN [facility] [id number] [facility] 2022-01-24 00:00:00 2022-01-24 00:00:00 Telephone Carlito Eduardo [facility] 1.2.840.114 350.1.13.10 4.2.7.2.686 [id number] [id number] [facility] 2022-01-10 00:00:00 2022-01-10 00:00:00 Telephone Bruce Bates [facility] 1.2.840.114 350.1.13.10 4.2.7.2.686 [id number] [id number] [facility] 2022-01-09 13:45:00 2022-01-09 14:00:00 Quality Associate Visit 2, Adc Lab Bruce Bates.MirzaDrew [facility] 1..840.114 350.1.13.10 4.2.7.2.686 [id number] [facility] 2022-01-09 13:00:00 2022-01-09 13:31:34 [facility] [id number] [facility] 2022-01-09 13:00:00 2022-01-09 13:31:34 [facility] [id number] [facility] 2022-01-09 13:00:00 2022-01-09 13:31:34 Office Visit Paulo Bruce TannerMirzaDrew [facility] 1..840.114 350.1.13.10 4.2.7.2.686 [id number] [facility] 2022-01-04 10:40:00 2022-01-04 10:40:00 Outpatient R EDUARDO ESTEBAN [facility] [id number] [facility] 2022-01-04 10:40:00 2022-01-04 10:40:00 Outpatient EDUARDO BERRIOS [facility] [id number] [facility] 2021-11-30 00:00:00 2021-11-30 00:00:00 Orders Only Doctor Unassigned, Alder [facility] 1.840.114 350.1.13.10 4.2.7.2.686 [id number] [id number] [facility] 2021-11-21 14:00:00 2021-11-21 14:20:00 Office Visit Lottie Truong [facility] 1..840.114 350.1.13.10 4.2.7.2.686 [id number] [facility] 2021-11-21 14:00:00 2021-11-21 14:00:00 Outpatient R HARMEET LOTTIE FOUNTAINJANEDARA, STRAHIL [facility] [id number] [facility] 2021-11-21 00:00:00 2021-11-21 00:00:00 Orders Only Doctor Unassigned, Alder [facility] 1.2.840.114 350.1.13.10 4.2.7.2.686 [id number] [id number] [facility] 2021-11-14 11:20:00 2021-11-14 11:40:00 Office Visit Lottie Truong [facility] 1..840.114 350.1.13.10 4.2.7.2.686 [id number] [facility] 2021-11-14 11:20:00 2021-11-14 11:20:00 Outpatient R LOTTIE TRUONG STRAHIL [facility] [id number] [facility] 2021-11-14 11:20:00 2021-11-14 11:20:00 Outpatient R LOTTIE TRUONG STRAMEL [facility] [id number] [facility] 2021-11-08 09:30:00 2021-11-08 10:03:08 Outpatient R BRUCE BATES [facility] [id number] [facility] 2021-11-08 09:30:00 2021-11-08 10:03:08 Office Visit Bruce Bates [facility] 1..840.114 350.1.13.10 4.2.7.2.686 [id number] [id number] [facility] 2021-11-08 09:30:00 2021-11-08 10:03:08 Outpatient R BRUCE BATES [facility] [id number] [facility] 2021-11-08 09:30:00 2021-11-08 09:30:00 Outpatient R BRUCE BATES [facility] [id number] [facility] 2021-11-07 08:37:56 2021-11-07 23:59:00 Outpatient R CHATO KNOX [facility] [id number] [facility] 2021-11-07 08:37:56 2021-11-07 23:59:00 Hospital Encounter Chato Knox [facility] 1.840.114 350.1.13.10 4.2.7.2.686 [id number] [facility] 2021-11-07 08:37:56 2021-11-07 23:59:00 Outpatient R CHATO KNOX [facility] [id number] [facility] 2021-11-01 00:00:00 2021-11-01 00:00:00 Patient Secure Msg Doctor Unassigned, Alder [facility] 1.840.114 350.1.13.10 4.2.7.2.686 [id number] [facility] 2021-10-29 00:00:00 2021-10-29 00:00:00 Orders Only Doctor Unassigned, Alder [facility] 1.2840.114 350.1.13.10 4.2.7.2.686 [id number] [id number] [facility] 2021-10-25 10:32:00 2021-10-26 15:28:00 Outpatient R [facility] [id number] [facility] 2021-10-25 07:00:00 2021-10-25 07:00:00 Outpatient R EDUARDO ESTEBAN [facility] [id number] [facility] 2021-10-23 19:30:00 2021-10-23 22:00:00 Quality Associate Visit 1, [facility] Sleep Lab Bed Lottie Truong [facility] 1.2840.114 350.1.13.10 4.2.7.2.686 [id number] [facility] 2021-10-23 19:30:00 2021-10-23 19:30:00 Outpatient R LOTTIE TRUONG STRAHIL [facility] [id number] [facility] 2021-10-23 13:15:00 2021-10-23 13:30:00 Laboratory Only Only, Adc Test Eduardo Esteban [facility] 1.2.840.114 350.1.13.10 4.2.7.2.686 [id number] [facility] 2021-10-23 00:00:00 2021-10-23 00:00:00 Orders Only Lottie Truong [facility] 1.840.114 350.1.13.10 4.2.7.2.686 [id number] [facility] 2021-10-22 10:08:26 2021-10-22 23:59:00 Outpatient R [facility]O [facility] [id number] [facility] 2021-10-22 10:08:26 2021-10-22 23:59:00 [facility] 1.0.114 350.1.13.10 4.2.7.2.686 [id number] [facility] 2021-10-17 00:00:00 2021-10-17 00:00:00 Telephone Alan Harding BUILDING 1.840.114 350.1.13.10 4.2.7.2.686 [id number] [facility] 2021-09-29 19:30:00 2021-09-29 19:30:00 Outpatient R LOTTIE TRUONG STRAHIL [facility] [id number] [facility] 2021-09-27 10:00:00 2021-09-27 10:00:00 Outpatient R [facility] [id number] [facility] 2021-09-25 09:30:00 2021-09-25 23:59:00 Hospital Encounter [facility] 1.2.840.114 350.1.13.10 4.2.7.2.686 [id number] [id number] [facility] 2021-09-25 09:00:00 2021-09-25 09:00:00 Hospital Encounter [facility] 1.2.840.114 350.1.13.10 4.2.7.2.686 [id number] [facility] 2021-09-25 00:00:00 2021-09-25 00:00:00 Outpatient R [facility]LITO [facility] [id number] [facility] 2021-09-24 00:00:00 2021-09-24 00:00:00 Telephone Tonybeth Kelleyhilaria [facility] 1.2.840.114 350.1.13.10 4.2.7.2.686 [id number] [id number] [facility] 2021-09-21 00:00:00 2021-09-21 00:00:00 Telephone [facility] 1.2.840.114 350.1.13.10 4.2.7.2.686 [id number] [id number] [facility] 2021-09-19 00:00:00 2021-09-19 00:00:00 Telephone [facility] 1.2.840.114 350.1.13.10 4.2.7.2.686 [id number] [facility] 2021-09-19 00:00:00 2021-09-19 00:00:00 Telephone [facility] 1.2.840.114 350.1.13.10 4.2.7.2.686 [id number] [facility] 2021-09-18 00:00:00 2021-09-18 00:00:00 Telephone Carlito [facility] 1.2.840.114 350.1.13.10 4.2.7.2.686 [id number] [id number] [facility] 2021-09-06 08:00:00 2021-09-06 08:00:00 Outpatient R [facility]ITO [facility] [id number] [facility] 2021-08-22 10:40:00 2021-08-22 11:03:10 Outpatient R LOTTIE TRUONG STRAHIL [facility] [id number] [facility] 2021-08-22 10:40:00 2021-08-22 11:03:10 Office Visit Lottie Truong [facility] 1.2.840.114 350.1.13.10 4.2.7.2.686 [id number] [facility] 2021-08-22 00:00:00 2021-08-22 00:00:00 Telephone Carlito Eduardo [facility] 1.2.840.114 350.1.13.10 4.2.7.2.686 [id number] [id number] [facility] 2021-08-15 15:20:00 2021-08-15 15:40:00 Office Visit [facility] Tru[facility] 1.2.840.114 350.1.13.10 4.2.7.2.686 [id number] 085 [id number] [facility] 2021-08-15 15:20:00 2021-08-15 15:20:00 Outpatient R LOTTIE TRUONG STRAMEVicky [facility] [id number] [facility] 2021-08-07 00:00:00 2021-08-07 00:00:00 Telephone Eduardo Esteban [facility] 1.2.840.114 350.1.13.10 4.2.7.2.686 [id number] [id number] [facility] 2021-07-31 08:47:17 2021-07-31 09:53:27 Office Visit Carlito [facility] 1.2.840.114 350.1.13.10 4.2.7.2.686 [id number] [facility] 2021-07-31 08:40:00 2021-07-31 09:53:27 Outpatient R CARLITO [facility] [id number] [facility] 2021-07-31 08:40:00 2021-07-31 09:53:27 Outpatient R [facility]O [facility] [id number] [facility] 2021-07-31 08:40:00 2021-07-31 09:53:27 Outpatient R CARLITO [facility] [id number] [facility] 2021-07-30 09:03:56 2021-07-30 09:49:07 Office Visit Bruce Bates [facility] 1.2.840.114 350.1.13.10 4.2.7.2.686 [id number] [facility] 2021-07-30 09:00:00 2021-07-30 09:49:07 Outpatient R BRUCE BATES [facility] [id number] [facility] 2021-07-30 09:00:00 2021-07-30 09:00:00 Outpatient R BRUCE BATES [facility] [id number] [facility] 2021-07-30 00:00:00 2021-07-30 00:00:00 Transition of Care Niya Smith 1..840.114 350.1.13.10 4.2.7.2.686 [id number] [facility] 2021-07-21 15:01:00 2021-07-26 17:17:00 Inpatient X EFRENKELLEYRUSSELL [facility] JOS[facility] [id number] [facility] 2021-07-21 15:01:00 2021-07-26 17:17:00 Hospital Encounter Jacki Samuels [place] [facility] 1..840.114 350.1.13.10 4.2.7.2.686 [id number] [facility] 2021-07-18 09:30:00 2021-07-18 10:51:09 Outpatient ALBINA SEWELL [facility] [id number] [facility] 2021-07-18 09:30:00 2021-07-18 10:51:09 Outpatient ALBINA SEWELL [facility] [id number] [facility] 2021-07-18 09:25:01 2021-07-18 10:51:09 Office Visit Alan Harding [facility] 1..840.114 350.1.13.10 4.2.7.2.686 [id number] [facility] 2021-07-10 00:00:00 2021-07-10 00:00:00 Telephone Bruce Bates [facility] 1..840.114 350.1.13.10 4.2.7.2.686 [id number] 059 [id number] [facility] 2021-07-02 00:00:00 2021-07-02 00:00:00 Telephone Bruce Bates [facility] 1.2.840.114 350.1.13.10 4.2.7.2.686 [id number] [facility] 2021-06-21 08:14:54 2021-06-21 23:59:00 Hospital Encounter Bruce Bates [facility] 1.2.840.114 350.1.13.10 4.2.7.2.686 [id number] [facility] 2021-06-21 08:14:18 2021-06-21 23:59:00 Hospital Encounter Bruce Bates [facility] 1.2.840.114 350.1.13.10 4.2.7.2.686 [id number] [facility] 2021-06-21 08:14:06 2021-06-21 23:59:00 Hospital Encounter Bruce Bates [facility] 1.2.840.114 350.1.13.10 4.2.7.2.686 [id number] [facility] 2021-06-21 08:13:21 2021-06-21 08:13:21 Hospital Encounter Bruce Bates [facility] 1.2.840.114 350.1.13.10 4.2.7.2.686 [id number] [facility] 2021-06-21 08:13:10 2021-06-21 08:13:10 Hospital Encounter Bruce Bates [facility] 1.2.840.114 350.1.13.10 4.2.7.2.686 [id number] [facility] 2021-06-21 00:00:00 2021-06-21 00:00:00 Outpatient BRUCE BATES [facility] [id number] [facility] 2021-06-20 00:00:00 2021-06-20 00:00:00 Telephone Bruce Bates [facility] 1.2.840.114 350.1.13.10 4.2.7.2.686 [id number] [facility] 2021-06-20 00:00:00 2021-06-20 00:00:00 Telephone Israel BeardadKellie [facility] 1.2840.114 350.1.13.10 4.2.7.2.686 [id number] [id number] [facility] 2021-06-19 00:00:00 2021-06-19 00:00:00 Orders Only Doctor Unassigned, Alder [facility] 1.2840.114 350.1.13.10 4.2.7.2.686 [id number] [facility] 2021-06-18 12:54:16 2021-06-18 23:59:00 Hospital Encounter Bruce Bates [facility] 1.2.840.114 350.1.13.10 4.2.7.2.686 [id number] [facility] 2021-06-18 13:00:00 2021-06-18 13:00:00 Outpatient R BRUCE BATES [facility] [id number] [facility] 2021-06-13 00:00:00 2021-06-13 00:00:00 Orders Only Doctor Unassigned, Alder [facility] 1.2840.114 350.1.13.10 4.2.7.2.686 [id number] [id number] [facility] 2021-06-12 16:07:13 2021-06-12 23:59:00 Hospital Encounter Bruce Bates [facility] 1.2.840.114 350.1.13.10 4.2.7.2.686 [id number] [facility] 2021-06-12 10:15:52 2021-06-12 11:10:12 Office Visit Bruce Bates [facility] 1.2.840.114 350.1.13.10 4.2.7.2.686 [id number] [facility] 2021-06-12 10:00:00 2021-06-12 10:00:00 Outpatient R BRUCE BATES [facility] [id number] [facility] 2021-06-12 00:00:00 2021-06-12 00:00:00 Orders Only Doctor Unassigned, Alder [facility] 1.2.840.114 350.1.13.10 4.2.7.2.686 [id number] [id number] [facility] 2021-01-04 00:00:00 2021-01-04 00:00:00 Refill Bruce Bates [facility] 1.2.840.114 350.1.13.10 4.2.7.2.686 [id number] 059 [id number] [facility] 2020-12-28 00:00:00 2020-12-28 00:00:00 Refill Bruce Bates [facility] 1.2.840.114 350.1.13.10 4.2.7.2.686 [id number] 059 [id number] [facility] 2020-11-04 00:00:00 2020-11-04 00:00:00 Orders Only Doctor Unassigned, Alder [facility] 1.2.840.114 350.1.13.10 4.2.7.2.686 [id number] [id number] [facility] 2020-09-15 00:00:00 2020-09-15 00:00:00 Telephone Bruce Bates [facility] 1.2.840.114 350.1.13.10 4.2.7.2.686 [id number] 059 [id number] [facility] 2020-06-12 14:47:16 2020-06-27 13:33:27 Office Visit Bruce Bates [facility] 1.2.840.114 350.1.13.10 4.2.7.2.686 [id number] 059 [id number] [facility] 2020-06-12 14:47:16 2020-06-27 13:33:27 Office Visit Bruce Bates [facility] 1.2.840.114 350.1.13.10 4.2.7.2.686 [id number] 059 [id number] 2020-06-27 00:00:00 2020-06-27 00:00:00 Orders Only Doctor Unassigned, Alder [facility] 1.2.840.114 350.1.13.10 4.2.7.2.686 [id number] [facility] 2020-06-27 00:00:00 2020-06-27 00:00:00 Telephone Bruce Bates [facility] 1.2.840.114 350.1.13.10 4.2.7.2.686 [id number] 059 [id number] [facility] 2020-06-27 00:00:00 2020-06-27 00:00:00 Telephone Bruce Bates [facility] 1.2.840.114 350.1.13.10 4.2.7.2.686 [id number] 059 [id number] 2020-06-21 16:00:00 2020-06-21 16:00:00 Outpatient R [facility] [id number] [facility] 2020-06-16 16:00:00 2020-06-16 16:00:00 Outpatient R [facility] [id number] [facility] 2020-06-12 14:30:00 2020-06-12 14:30:00 Outpatient R BRUCE BATES [facility] [id number] [facility] 2020-06-12 00:00:00 2020-06-12 00:00:00 Orders Only Doctor Unassigned, Alder [facility] 1..840.114 350.1.13.10 4.2.7.2.686 [id number] [facility] 2020-05-26 09:37:13 2020-05-26 11:46:55 Office Visit Alan Mcclain [facility] 1.2.840.114 350.1.13.10 4.2.7.2.686 [id number] [facility] 2020-05-26 09:20:00 2020-05-26 09:20:00 Outpatient ALAN MEMBRENO HOWARD [facility] [id number] [facility] 2020-05-22 09:00:00 2020-05-22 09:00:00 Outpatient R BRUCE BATES [facility] [id number] [facility] 2020-05-12 00:00:00 2020-05-12 00:00:00 Telephone [facility]cl[facility] 1..840.114 350.1.13.10 4.2.7.2.686 [id number] [facility] 2020-04-28 15:30:00 2020-04-28 15:30:00 Outpatient R BRUCE BATES [facility] [id number] [facility] 2020-04-18 10:49:27 2020-04-18 23:59:00 Hospital Encounter Alan Mcclain [facility] 1.840.114 350.1.13.10 4.2.7.2.686 [id number] [facility] 2020-04-18 00:00:00 2020-04-18 00:00:00 Outpatient ALAN MEMBRENO HOWARD [facility] [id number] [facility] 2020-04-11 13:24:22 2020-04-11 14:07:49 Office Visit Alan Mcclain [facility] 1.840.114 350.1.13.10 4.2.7.2.686 [id number] [facility] 2020-04-11 13:40:00 2020-04-11 13:40:00 Outpatient ALAN MEMBRENO HOWARD [facility] [id number] [facility] 2020-04-11 00:00:00 2020-04-11 00:00:00 Orders Only Doctor Unassigned, Alder [facility] 1..114 350.1.13.10 4.2.7.2.686 [id number] [id number] [facility] 2020-03-09 00:00:00 2020-03-09 00:00:00 Orders Only Doctor Unassigned, Alder [facility] 1.20114 350.1.13.10 4.2.7.2.686 [id number] [facility] 2020-01-05 11:30:00 2020-01-05 11:30:00 Outpatient R LOTTIE TRUONG STRAHIL [facility] [id number] [facility] 2020-01-05 09:17:42 2020-01-05 09:47:42 Telemedici ne Visit Lottie Truong [facility] 1.840.114 350.1.13.10 4.2.7.2.686 [id number] [facility] 2019-12-19 00:00:00 2019-12-19 00:00:00 Orders Only Doctor Unassigned, Alder [facility] 1.2840.114 350.1.13.10 4.2.7.2.686 [id number] [id number] [facility] 2019-04-22 15:39:26 2019-04-22 16:24:54 Office Visit Bruce Bates [facility] 1.2.840.114 350.1.13.10 4.2.7.2.686 [id number] 059 [id number] [facility] 2019-04-22 00:00:00 2019-04-22 00:00:00 Orders Only Doctor Unassigned, Alder [facility] 1.2840.114 350.1.13.10 4.2.7.2.686 [id number] [facility] 2019-04-07 10:03:10 2019-04-07 10:33:10 Office Visit Lottie Truong [facility] 1.2.840.114 350.1.13.10 4.2.7.2.686 [id number] [facility] 2019-04-07 00:00:00 2019-04-07 00:00:00 Orders Only Doctor Unassigned, [place] [facility] 1.2840.114 350.1.13.10 4.2.7.2.686 [id number] [facility] Results Test Description Test Time Test Comments Results Result Co mments Source [id number] 01:02:43* Test Item Value Reference Range Interpretation Comme nts TROPONIN I (test code = 8221579425) <=0.034 ZAK (test code = ZAK) Reference [...] of biotin. Lab Interpretation (test code = 18721-4) Normal [facility] (81563)2024-07-09 00:52:37* Test Item Value Reference Range Interpretation Comme nts NA (test code = 6946881970) 134 mmol/L 135-145 L K (test code = 6660990299) 4.0 mmol/L 3.5-5.0 CL (test code = 9801651196) 101 mmol/L 98-108 CO2 TOTAL (test code = 7142167988) 25 mmol/L 23-31 AGAP (test code = 3496888925) 8 2-16 BUN (test code = 5966266161) 22 mg/dL 7-23 GLUCOSE (test code = 5729948293) 278 mg/dL 70-110 H CREATININE (test code = 2160-0) 0.90 mg/dL 0.50-1.04 TOTAL BILI (test code = 5151464082) 1.0 mg/dL 0.1-1.1 CALCIUM (test code = 8134230420) 9.5 mg/dL 8.6-10.6 T PROTEIN (test code = 1323769129) 7.1 g/dL 6.3-8.2 ALBUMIN (test code = 2629453013) 4.2 g/dL 3.5-5.0 ALK PHOS (test code = 5029010280) 74 U/L 34-122 ALTv (test code = 1742-6) 22 U/L 5-35 AST(SGOT) (test code = 1698811703) 25 U/L 13-40 eGFR (test code = 72627-4) 69.8 mL/min/1.73m2 CKD-EPI eGFR (2020). Assuming creatinine has been stable day-to-day for at least three months, the eGFR indicates Category G2 (60 - 89 mL/min/1.73 m2) Lab Interpretation (test code = 04795-9) Abnormal [facility] 00:52:01* Test Item Value Reference Range Interpretation Comme nts LIPASE (test code = 0170718348) 107 U/L 0-220 Lab Interpretation (test cod e = 07992-4) Normal [facility] 2 [id number] 00:42:21CHEST X-RAY PA & LATERAL 07/08/2024 6:41 [...] thevisualized skeleton. Degenerative change of the thoracic spine.[facility] WITH [id number] 00:33:38* Test Item Value Reference Range Interpretation [...] 33.3 g/dL 31.6-35.1 RDW-SD (test code = 13936-2) 43.9 fL 39.0-49.9 RDW-CV (test code = 788-0) 13.2 % 12.0-15.5 PLT (test code = 777-3) 249 166-358 MPV (test code = 42081-0) 9.5 fL 9.5-12.9 NRBC/100 WBC (test code = 2111516843) 0.0 0.0-10.0 NRBC x10^3 (test code = 0154822159) See_Comment [Automated me ssage] The system which generated this result transmitted reference range: 10*3/?L. The reference range was not used to interpret this result as normal/abnormal. GRAN MAT (NEUT) % (test code = 770-8) 64.9 % IMM GRAN % (test code = 2097888454) 0.30 % LYMPH % (test code = 736-9) 25.1 % MONO % (test code = 5905-5) 7.8 % EOS % (test code = 713-8) 1.2 % BASO % (test code = 706-2) 0.7 % GRAN MAT x10^3(ANC) (test code = 6201490029) 6.16 10*3/uL 1.88-7.09 IMM GRAN x10^3 (test code = 0923050260) 0.03 10*3/uL 0.00-0.06 LYMPH x10^3 (test code = 731-0) 2.38 10*3/uL 1.32-3.29 MONO x10^3 (test code = 742-7) 0.74 10*3/uL 0.33-0.92 EOS x10^3 (test code = 711-2) 0.11 10*3/uL 0.03-0.39 BASO x10^3 (test code = 704-7) 0.07 10*3/uL 0.01-0.07 [facility]MR CERVICAL SPINE WO [id number] 20:42:35EXAM: MR CERVICAL SPINE WO CONTRAST HISTORY: [...] that results in mild to moderate spinal canalstenosis.[facility] GLUCOSE (AUTOMATED)2024-04-28 21:09:50* Test Item Value Reference Range Interpretation Comme nts POCT GLU (test code = 9280994267) 130 mg/dL 70-110 H Lab Interpretation (test cod e = 31029-9) Abnormal [facility] GLUCOSE (AUTOMATED)2024-04-28 16:32:51* Test Item Value Reference Range Interpretation Comme nts POCT GLU (test code = 2516182705) 138 mg/dL 70-110 H Lab Interpretation (test cod e = 61357-2) Abnormal [facility] GLUCOSE (AUTOMATED)2024-04-28 12:40:49* Test Item Value Reference Range Interpretation Comme nts POCT GLU (test code = 8162920071) 98 mg/dL 70-110 Lab Interpretation (test cod e = 90218-8) Normal [facility] GLUCOSE (AUTOMATED)2024-04-28 01:47:46* Test Item Value Reference Range Interpretation Comme nts POCT GLU (test code = 5505936044) 164 mg/dL 70-110 H Lab Interpretation (test cod e = 73427-4) [facility] 22:34:33* Test Item Value Reference Range Interpretation Comme nts Height (test code = 6244758361) 65 in Weight (test code = 4765412969) 192 lbs Systolic BP (test code = 5924676483) 112 mmHg Diastolic BP (test code = 7607022667) 70 mmHg Heart Rate (test code = 6169259277) 66 bpm LV GLS Endo Peak A2C () (test code = 6690530158) -25.00 % LV GLS Endo Peak A3C () (test code = 6471414819) -22.50 % LV GLS Endo Peak A4C () (test code = 2649322535) -23.20 % LV GLS Endo Peak Avg () (test code = 9792500900) -23.60 % BSA (test code = 8341909120) 1.94 m2 Ao root diam (test code = 0271926883) 3.20 cm Aortic root (test code = 8561550309) 3.2 cm Ao root annulus (test code = 3064425447) 3.2 cm LVOT diameter (test code = 6190271856) 1.80 cm LVOT area (test code = 4498097769) 2.60 cm2 LA size (test code = 7137434059) 4.8 cm LVIDD (test code = 6494883141) 4.20 cm Left Ventricular End Diastolic Volume by Teichholz Method (test code = 3191536) 80.3 mL IVS (test code = 8368502698) 1.31 cm Interventricular Septum Diastolic Thickness by 2D (test code = 9570779) 1.31 cm LVPWD (test code = 0062319024) 1.28 cm PW (test code = 9538218048) 1.28 cm 0.6-1.1 EF(Teich) (test code = 7329868887) 65.30 % LVIDS (test code = 3088909675) 2.70 cm Left Ventricular End Systolic Volume by Teichholz Method (test code = 3314902) 27.8 mL FS (test code = 9264528698) 36 % EF - 2D (test code = 14943042) 65.30 % LAV(MOD-sp4) (test code = 0660872213) 44.20 mL E wave decelartion time (test code = 8492601472) 0.19 s MV Peak E Tone (test code = 8856533779) 64.5 cm/s MV Peak A Tone (test code = 6483779620) 40.9 cm/s E/A ratio (test code = 8637337597) 1.58 ratio MV stenosis pressure 1/2 time (test code = 6408822526) 56.3 ms MV Prop V (test code = 5300734801) 51.10 cm/s MV E/e' septal (test code = 7667292962) 8.5 cm/s Tapse (test code = 3428364608) 1.43 cm LVOT stroke volume (test code = 3209394219) 44.70 cm3 LVOT peak tone (test code = 1990719340) 111.6 cm/s LVOT mn grad (test code = 9585308148) 2.4 mmHg AV LVOT peak gradient (test code = 5189898610) 5.0 mmHg LVOT peak VTI (test code = 0950863044) 17.5 cm LV V1 mean (test code = 7209261868) 72.10 cm/s Aortic valve mean velocity (test code = 2752203358) 106.4 cm/s Ao peak tone (test code = 3589074266) 151.1 cm/s Ao VTI (test code = 4687435685) 22.9 cm AV area by cont VTI (test code = 4727717948) 2.0 cm2 AV area peak tone (test code = 9200505142) 1.9 cm2 Ao max PG (test code = 4093094876) 9.10 mm[Hg] AV peak gradient (test code = 8308387410) 9.1 mmHg AV valve area (test code = 5229665956) 1.96 cm2 AV mean gradient (test code = 0035222659) 5.0 mmHg Radiology Study observation (narrative) (test code = 16063-9) ZAK (test code = ZAK) ?Left?Ventricle: Left [...] color flow Doppler, spectral Doppler and strain. [facility] GLUCOSE (AUTOMATED)2024-04-27 21:43:50* Test Item Value Reference Range Interpretation Comme nts POCT GLU (test code = 3277074012) 125 mg/dL 70-110 H Lab Interpretation (test cod e = 58577-4) Abnormal [facility] GLUCOSE (AUTOMATED)2024-04-27 16:24:49* Test Item Value Reference Range Interpretation Comme nts POCT GLU (test code = 2307683401) 198 mg/dL 70-110 H Lab Interpretation (test cod e = 00307-3) Abnormal [facility] GLUCOSE (AUTOMATED)2024-04-27 12:42:16* Test Item Value Reference Range Interpretation Comme nts POCT GLU (test code = 8777138599) 116 mg/dL 70-110 H Lab Interpretation (test cod e = 42898-6) Abnormal [facility] GLUCOSE (AUTOMATED)2024-04-27 06:52:13* Test Item Value Reference Range Interpretation Comme nts POCT GLU (test code = 6744837917) 89 mg/dL 70-110 Lab Interpretation (test cod e = 57111-7) Normal [facility] GLUCOSE (AUTOMATED)2024-04-27 01:50:16* Test Item Value Reference Range Interpretation Comme nts POCT GLU (test code = 5875830016) 133 mg/dL 70-110 H Lab Interpretation (test cod e = 14198-6) Abnormal [facility] GLUCOSE (AUTOMATED)2024-04-26 20:57:45* Test Item Value Reference Range Interpretation Comme nts POCT GLU (test code = 9087320607) 134 mg/dL 70-110 H Lab Interpretation (test cod e = 84578-2) Abnormal [facility] GLUCOSE (AUTOMATED)2024-04-26 16:23:43* Test Item Value Reference Range Interpretation Comme nts POCT GLU (test code = 7912087114) 151 mg/dL 70-110 H Lab Interpretation (test cod e = 41229-3) Abnormal [facility] GLUCOSE (AUTOMATED)2024-04-26 12:54:15* Test Item Value Reference Range Interpretation Comme nts POCT GLU (test code = 8367097444) 193 mg/dL 70-110 H Lab Interpretation (test cod e = 26866-5) Abnormal [facility] HospitalGlycosylated Hemoglobin (A1C)2024-04-26 05:04:09* Test Item Value Reference Range Interpretation Comme nts HGB A1C (test code = 4548-4) 9.2 % 4.0-5.7 H ZAK (test code = ZAK) Reference RangesNormal: <5.7%Prediabetes: 5.7 - 6.4%Diabetes: > 6.5% Lab Interpretation (test code = 95701-5) Abnormal [facility] HospitalCritical [id number] 04:24:58Daniele Maharaj MD ? ? 04/25/2024 11:24 [...] separately billable procedures and treating other patients. [facility] HospitalTROPONIN [id number] 03:34:58* Test Item Value Reference Range Interpretation Comme nts TROPONIN I (test code = 4536799469) 0.007 ng/mL <=0.034 ZAK (test code = [...] of biotin. Lab Interpretation (test code = 72628-1) Normal [facility] HospitalN-TERMINAL [id number] 03:32:58* Test Item Value Reference Range Interpretation Comme nts NT-proBNP (test code = 73936-9) 1360 pg/mL <=125 H ZAK (test code = ZAK) Positive: Heart Failure Likely Lab Interpretation (test code = 12085-5) Abnormal [facility] HospitalMagnesium2024-08-26 03:18:34* Test Item Value Reference Range Interpretation Comme nts MAGNESIUM (test code = 3277015344) 1.6 mg/dL 1.7-2.4 L Lab Interpretation (test cod e = 32619-0) Abnormal [facility] HospitalCOMP. METABOLIC PANEL (05463)2024-04-26 03:18:14* Test Item Value Reference Range Interpretation Comme nts NA (test code = 6635378480) 134 mmol/L 135-145 L K (test code = 8955946829) 3.8 mmol/L 3.5-5.0 CL (test code = 4254440193) 98 mmol/L 98-108 CO2 TOTAL (test code = 4624973026) 28 mmol/L 23-31 AGAP (test code = 3833199866) 8 2-16 BUN (test code = 6799962358) 15 mg/dL 7-23 GLUCOSE (test code = 4911926407) 131 mg/dL 70-110 H CREATININE (test code = 2160-0) 0.67 mg/dL 0.50-1.04 TOTAL BILI (test code = 5826346246) 1.6 mg/dL 0.1-1.1 H CALCIUM (test code = 9762048054) 9.7 mg/dL 8.6-10.6 T PROTEIN (test code = 2235513203) 8.2 g/dL 6.3-8.2 ALBUMIN (test code = 7127903891) 4.5 g/dL 3.5-5.0 ALK PHOS (test code = 8429467806) 93 U/L 34-122 ALTv (test code = 1742-6) 21 U/L 5-35 AST(SGOT) (test code = 4567217593) 35 U/L 13-40 eGFR (test code = 78513-2) 95.9 mL/min/1.73m2 CKD-EPI eGFR (2020). Assuming creatinine has been stable day-to-day for at least three months, the eGFR indicates Category G1 (>= 90 mL/min/1.73 m2) Lab Interpretation (test code = 10155-4) Abnormal [facility] HospitalLIPASE2024-08-26 03:18:14* Test Item Value Reference Range Interpretation Comme nts LIPASE (test code = 0945117175) 100 U/L 0-220 Lab Interpretation (test cod e = 53362-2) Normal [facility] WITH [id number] 02:36:12* Test Item Value Reference Range Interpretation [...] 34.3 g/dL 31.6-35.1 RDW-SD (test code = 99659-2) 42.9 fL 39.0-49.9 RDW-CV (test code = 788-0) 13.0 % 12.0-15.5 PLT (test code = 777-3) 196 166-358 MPV (test code = 63093-7) 10.0 fL 9.5-12.9 NRBC/100 WBC (test code = 6896800824) 0.0 0.0-10.0 NRBC x10^3 (test code = 4185846320) See_Comment [Automated messa ge] The system which generated this result transmitted reference range: 10*3/?L. The reference range was not used to interpret this result as normal/abnormal. GRAN MAT (NEUT) % (test code = 770-8) 78.4 % IMM GRAN % (test code = 7104872930) 0.50 % LYMPH % (test code = 736-9) 11.7 % MONO % (test code = 5905-5) 8.1 % EOS % (test code = 713-8) 0.8 % BASO % (test code = 706-2) 0.5 % GRAN MAT x10^3(ANC) (test code = 0786078140) 6.88 10*3/uL 1.88-7.09 IMM GRAN x10^3 (test code = 6259665682) 0.04 10*3/uL 0.00-0.06 LYMPH x10^3 (test code = 731-0) 1.03 10*3/uL 1.32-3.29 L MONO x10^3 (test code = 742-7) 0.71 10*3/uL 0.33-0.92 EOS x10^3 (test code = 711-2) 0.07 10*3/uL 0.03-0.39 BASO x10^3 (test code = 704-7) 0.04 10*3/uL 0.01-0.07 Lab Interpretation (test code = 03652-1) Abnormal [facility] GLUCOSE (AUTOMATED)2022-09-19 18:24:53* Test Item Value Reference Range Interpretation Comme nts POCT GLU (test code = 1844074396) 147 mg/dL 70-110 H Lab Interpretation (test cod e = 14448-4) Abnormal [facility] GLUCOSE (AUTOMATED)2022-09-19 16:02:54* Test Item Value Reference Range Interpretation Comme nts POCT GLU (test code = 7948813459) 86 mg/dL 70-110 Lab Interpretation (test cod e = 43548-8) Normal [facility] GLUCOSE (AUTOMATED)2022-09-19 01:50:19* Test Item Value Reference Range Interpretation Comme nts POCT GLU (test code = 6774572702) 127 mg/dL 70-110 H Lab Interpretation (test cod e = 65979-3) Abnormal [facility] GLUCOSE (AUTOMATED)2022-09-18 22:39:24* Test Item Value Reference Range Interpretation Comme nts POCT GLU (test code = 1253909911) 104 mg/dL 70-110 Lab Interpretation (test cod e = 74023-3) Normal [facility] GLUCOSE (AUTOMATED)2022-09-18 17:35:45* Test Item Value Reference Range Interpretation Comme nts POCT GLU (test code = 1969893267) 158 mg/dL 70-110 H Lab Interpretation (test cod e = 29950-9) Abnormal [facility] GLUCOSE (AUTOMATED)2022-09-18 14:16:24* Test Item Value Reference Range Interpretation Comme nts POCT GLU (test code = 8949385784) 148 mg/dL 70-110 H Lab Interpretation (test cod e = 47820-9) Abnormal [facility] HospitalPOCT [facility]UCOSE (AUTOMATED)2022-09-18 02:59:51* Test Item Value Reference Range Interpretation Comme nts POCT GLU (test code = 9334315190) 174 mg/dL 70-110 H Lab Interpretation (test cod e = 02442-9) Abnormal [facility] HospitalTransthoracic echo (TTE)2022-09-17 23:30:34* Test Item Value Reference Range Interpretation Comme nts Height (test code = 0478859294) in Weight (test code = 7186395800) lbs Systolic BP (test code = 2620338747) mmHg Diastolic BP (test code = 9528543344) mmHg Heart Rate (test code = 8312794761) bpm BSA (test code = 8767716676) 1.98 m2 Ao root diam (test code = 7630358197) 3.10 cm Aortic root (test code = 7435883339) 3.1 cm Ao root annulus (test code = 6584561886) 3.1 cm LVOT diameter (test code = 4007250181) 1.82 cm LVOT area (test code = 6194678302) 2.60 cm2 LVIDD (test code = 1819383317) 4.00 cm Left Ventricular End Diastolic Volume by Teichholz Method (test code = 5937178) 69.3 mL IVS (test code = 8825104508) 1.19 cm Interventricular Septum Diastolic Thickness by 2D (test code = 8784708) 1.19 cm LVPWD (test code = 0701610084) 1.19 cm PW (test code = 1093779204) 1.19 cm 0.6-1.1 EF(Teich) (test code = 6397429924) 54.60 % LVIDS (test code = 9212456036) 2.90 cm Left Ventricular End Systolic Volume by Teichholz Method (test code = 5479310) 31.4 mL FS (test code = 0118400261) 28 % EF - 2D (test code = 19224719) 54.60 % LA size (test code = 2884843499) 4.5 cm LAV(MOD-sp4) (test code = 1519791055) 64.20 mL E wave decelartion time (test code = 0045288921) 0.14 s MV Peak E Tone (test code = 4663822597) 73.1 cm/s MV stenosis pressure 1/2 time (test code = 8005764613) 41.2 ms MV Peak A Tone (test code = 2403195479) 27.2 cm/s E/A ratio (test code = 9095842721) ratio MV Prop V (test code = 2920705163) 25.00 cm/s MV E/e' septal (test code = 6672157221) 8.1 cm/s Tapse (test code = 7652385366) 1.63 cm TR Peak Tone (test code = 0650362347) 199.0 cm/s Triscuspid Valve Regurgitation Peak Gradient (test code = 4113852936) mmHg LVOT stroke volume (test code = 4885064226) 54.40 cm3 LVOT peak tone (test code = 1031126110) 127.5 cm/s LVOT mn grad (test code = 3220315792) mmHg AV LVOT peak gradient (test code = 4960048722) mmHg LVOT peak VTI (test code = 3169049997) 21.0 cm LV V1 mean (test code = 5449547140) 69.50 cm/s Aortic valve mean velocity (test code = 5433988941) 119.0 cm/s Ao peak tone (test code = 2474414749) 161.8 cm/s Ao VTI (test code = 9064080013) 26.0 cm AV area by cont VTI (test code = 7778206501) 2.1 cm2 AV area peak tone (test code = 2295943917) 2.0 cm2 Ao max PG (test code = 5758473891) 10.50 mm[Hg] AV peak gradient (test code = 0426314747) mmHg AV valve area (test code = 3171667895) 2.09 cm2 AV mean gradient (test code = 4225979324) mmHg Radiology Study observation (narrative) (test code = 98487-9) ZAK (test code = ZAK) ?Left?Ventricle: Left [...] 2D, color flow Doppler and spectral Doppler. [facility] GLUCOSE (AUTOMATED)2022-09-17 22:53:28* Test Item Value Reference Range Interpretation Comme [facility] POCT GLU (test code = 4324906505) 121 mg/dL 70-110 H Lab Interpretation (test cod e = 79331-1) Abnormal [facility] GLUCOSE (AUTOMATED)2022-09-17 17:41:55* Test Item Value Reference Range Interpretation Comme [facility] POCT GLU (test code = 0440158045) 193 mg/dL 70-110 H Lab Interpretation (test cod e = 79679-5) Abnormal [facility] GLUCOSE (AUTOMATED)2022-09-17 13:47:30* Test Item Value Reference Range Interpretation Comme [facility] POCT GLU (test code = 4767106251) 115 mg/dL 70-110 H Lab Interpretation (test cod e = 47235-2) Abnormal [facility] HospitalGlycosylated Hemoglobin (A1C)2022-09-17 06:05:45* Test Item Value Reference Range Interpretation Comme [facility] HGB A1C (test code = 4548-4) 8.9 % 4.0-5.7 H ZAK (test code = ZAK) Reference RangesNormal: <5.7%Prediabetes: 5.7 - 6.4%Diabetes: > 6.5% Lab Interpretation (test code = 76281-0) Abnormal [facility] HospitalTHYROID STIMULATING [id number] 22:23:39 * Test Item Value Reference Range Interpretation Comme nts TSH (test code = 5412021062) See_Comment [Automated via680a ge] The system which generated this result transmitted reference range: 0.45 - 4.70 mIU/L. The reference range was not used to interpret this result as normal/abnormal. Lab Interpretation (test code = 40867-1) Normal [facility] HospitalTROPONIN [id number] 22:04:57* Test Item Value Reference Range Interpretation Comments TROPONIN I (test code = 4845101257) 0.007 ng/mL See_Comment [Automated message] The system [...] of biotin. Lab Interpretation (test code = 19814-7) Normal [facility] HospitalMAGNESIUM2023-01-16 21:53:35* Test Item Value Reference Range Interpretation Comme nts MAGNESIUM (test code = 4846547930) 1.7 mg/dL 1.7-2.4 Lab Interpretation (test cod e = 64268-0) Normal [facility] HospitalCOMP. METABOLIC PANEL (29517)2022-09-16 21:53:15* Test Item Value Reference Range Interpretation Comme nts NA (test code = 5672424877) 138 mmol/L 135-145 K (test code = 9627958432) 4.3 mmol/L 3.5-5.0 CL (test code = 1223125013) 101 mmol/L 98-108 CO2 TOTAL (test code = 2571653826) 25 mmol/L 23-31 AGAP (test code = 5118958785) 2-16 BUN (test code = 5606784262) 16 mg/dL 7-23 GLUCOSE (test code = 0946122314) 186 mg/dL 70-110 H CREATININE (test code = 8237519578) 0.73 mg/dL 0.50-1.04 TOTAL BILI (test code = 9790135614) 1.4 mg/dL 0.1-1.1 H CALCIUM (test code = 8527080125) 9.4 mg/dL 8.6-10.6 T PROTEIN (test code = 2397747140) 7.7 g/dL 6.3-8.2 ALBUMIN (test code = 9173243214) 4.7 g/dL 3.5-5.0 ALK PHOS (test code = 4518862566) 125 U/L 34-122 H ALTv (test code = 1742-6) 21 U/L 5-35 AST(SGOT) (test code = 5159263860) 22 U/L 13-40 eGFR (test code = 7171003895) mL/min/1.73m2 ZAK (test code = ZAK) Association [...] imaging tests). Lab Interpretation (test code = 45279-5) Abnormal [facility] WITH [id number] 21:34:56* Test Item Value Reference Range Interpretation Comme nts WBC (test code = 6690-2) See_Comment [Automated [employer]] The system which generated this result transmitted reference range: 4.30 - 11.10 10*3/?L. The reference range was not used to interpret this result as normal/abnormal. RBC (test code = 789-8) See_Comment [Automated [employer]] The system which generated this result transmitted [...] 33.3 g/dL 31.6-35.1 RDW-SD (test code = 37972-1) 42.7 fL 39.0-49.9 RDW-CV (test code = 788-0) 12.8 % 12.0-15.5 PLT (test code = 777-3) See_Comment [Automated [employer]] The system which generated this result transmitted reference range: 166 - 358 10*3/?L. The reference range was not used to interpret this result as normal/abnormal. MPV (test code = 42242-5) 9.6 fL 9.5-12.9 NRBC/100 WBC (test code = 6195721277) See_Comment [Automated me ssage] The system which generated this result transmitted reference range: 0.0 - 10.0 /100 WBCs. The reference range was not used to interpret this result as normal/abnormal. NRBC x10^3 (test code = 9558745825) See_Comment [Automated messa ge] The system which generated this result transmitted reference range: 10*3/?L. The reference range was not used to interpret this result as normal/abnormal. GRAN MAT (NEUT) % (test code = 770-8) 65.8 % IMM GRAN % (test code = 2591708827) 0.30 % LYMPH % (test code = 736-9) 22.1 % MONO % (test code = 5905-5) 9.5 % EOS % (test code = 713-8) 1.4 % BASO % (test code = 706-2) 0.9 % GRAN MAT x10^3(ANC) (test code = 9986401763) 5.81 10*3/uL 1.88-7.09 IMM GRAN x10^3 (test code = 5844719566) 0.03 10*3/uL 0.00-0.06 LYMPH x10^3 (test code = 731-0) 1.95 10*3/uL 1.32-3.29 MONO x10^3 (test code = 742-7) 0.84 10*3/uL 0.33-0.92 EOS x10^3 (test code = 711-2) 0.12 10*3/uL 0.03-0.39 BASO x10^3 (test code = 704-7) 0.08 10*3/uL 0.01-0.07 H Lab Interpretation (test code = 25051-8) Abnormal [facility] HospitalDIGITAL MAMMOGRAM, [id number] 19:52:00*.*.*.*.*.*.*.*.*.*.*.*.*.*FINAL*.*.*.*.*.*.*.*.*.*.*.*.*.*.*Computer- aided detection(CAD)utilized.Bilateral Breast Findings:There are scattered fibroglandular densities (25% - 50% fibroglandular). ?No significant masses, calcifications or other abnormalities are seen. ?Personally interpreted by: R BK ALLAN MD /Signed/ BK CABRAL MDUnWise Health [facility] Consult Notes Date/Time Note Provider Source 2024-04-27 [...] 09/13/2013 Surgeon: Radhika Newton MD; Location[facility] LAPAROSCOPIC ROBOTIC ASSISTED SALPINGO-OOPHORECTOMY 12/17/2012 Surgeon: Reji Barriga MBBC; Location: [facility] LAPAROSCOPIC ROBOTIC ASSISTED VAGINAL HYSTERECTOMY 12/17/2012 Surgeon: Reji Barriga MBBCH; Location: [facility] LYSIS OF ABDOMINAL ADHESIONS 02/03/2013 Surgeon: Get Whittington MD; Location: [facility] MAMMOGRAM, BILATERAL-DIAGNOSTIC 2012 REMOVAL GALLBLADDER 1997 ROBOTIC ASSISTED LYMPH NODE DISSECTION (SHX) 02/03/2013 Surgeon: Get Whittington MD; Location: [facility] TUBAL LIGATION 1989 WIDE LOCAL VULVAR LESION EXCISION 06/13/2014 WIDE LOCAL VULVAR LESION EXCISION N/A 06/13/2014 Surgeon: Get Whittington MD; Location: [facility] Prior Living Situation: in a house and [...] treatment: does not rate COMMUNICATION Primary Language: Guinean Able to Verbalize needs: Yes Vision:good; no [...] min Zuri Hays PT [place] Lic No. [id number] [facility] Department of Physical Therapy Zuri Hays PT [facility] 2024-04-26 17:00:42 Associated Order(s): CONSULT [facility]IOLOGY [facility] Cardiology Consult Note Patient: Sherrie Hernandez [...] Recurrent paroxysmal defibrillation with RVR episodes noted: [id number]-FYRl=3 (age, female, hypertension, diabetes, history of CVA). [...] 12/17/2012 Surgeon: Reji Barriga MBBC; [facility] LAPAROSCOPIC ROBOTIC ASSISTED VAGINAL HYSTERECTOMY 12/17/2012 Surgeon: Reji Barriga MBBCH; Location: [facility] LYSIS OF ABDOMINAL ADHESIONS 02/03/2013 Surgeon: Get Whittington MD; Location: [facility] MAMMOGRAM, BILATERAL-DIAGNOSTIC 2012 REMOVAL GALLBLADDER 1997 ROBOTIC ASSISTED LYMPH NODE DISSECTION (SHX) 02/03/2013 Surgeon: Get Whittington MD; Location: [facility] TUBAL LIGATION 1989 WIDE LOCAL VULVAR LESION [...] her since passed. Has [facility] at [employer] but doesn t go often due to not driving, never learned to drive. 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 Pt values health wanting [...] 09/18/2022 140 mg/dL 11/23/2014 209 MG/DL (H) [id number] (mg/dL (calc)) Date Value 02/24/2015 141 (H) [...] 09/18/2022 140 mg/dL 11/23/2014 209 MG/DL (H) [id number] (mg/dL (calc)) Date Value 02/24/2015 141 (H) [...] Recurrent atrial fibrillation with RVR episodes noted: [id number]=2 (age, female, hypertension, diabetes, history of CVA). [...] 09/18/2022 140 mg/dL 11/23/2014 209 MG/DL (H) [id number] (mg/dL (calc)) Date Value 02/24/2015 141 (H) [...] 09/18/2022 140 mg/dL 11/23/2014 209 MG/DL (H) [id number] (mg/dL (calc)) Date Value 02/24/2015 141 (H) T2DM: Follow up PCP. Recommended goal A1c less than 6.5. Last Two A1C Results ([facility], PO[facility], [facility]) Recent Labs 04/25/242115 HGBA1C 9.2* Mild dilated ascending artery: 3.6 cm: In the setting of underlying longstanding high blood pressure. Recommended aggressive blood pressure control to keep blood pressure less than 130/80's. THEODORE:Sleep study dated 10/23/2021 reviewed shows presence of severe obstructive sleep apnea controlled with BiPAP. Recommended compliant with CPAP Rx plan reviewed with the hospitalist team. Primary clinical laboratory manager: Dr. Santos Thank you for allowing us to participate in the care of Sherrie Hernandez. If you have any questions or concerns please feel free to call our office at [phone]. I would be happy to be of further assistance for Sherrie Hernandez wellbeing. Otoniel Bates MD Sed Special Education Teacher, Division of Cardiology [facility] T [facility] - Health History and Physical Notes Date/Time Note Provider Source 2024-04-26 01:51:45 MEDICINE [facility] ADMIT H&P Date of Service: 04/26/2024 [...] her since passed. Has spiritual community at [employer] but doesn t go often due to not driving, never learned to drive. 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 Pt values health wanting [...] decision maker: Adonis Wilkes (child) - T [facility] Notes Date/Time Note Provider Source 2024-07-22 14:48:29 Dr. Mcclain, KIRSTIE 07/20/24 note isn't closed. Please review and send the pended medication on this encounter per pt request if these are the medications you agreed to fill for pt. F James LVN [facility] 2024-07-22 10:16:59 Sherrie Hernandez is a 69 year old female Pt is calling and is asking for a refill/ if dr Mcclain placed theses medications. Please advise. RX methocarbamoL 750 mg tablet meloxicam 15 mg tablet nalxone [facility] [place] F Palomares [facility] 2024-07-08 20:18:15 Awake, alert oriented X4, respiratory [...] noted upon discharge. Pt ambulated to the lobby with steady gait. MIXER Falguni Harding RN [facility] 2024-07-08 19:02:47 Nurse Report Report given to Falguni MAYORGA. Chief complaint, assessment findings, infusion verify and orders reviewed. Plan of care discussed at bedside with patient and both nurses. Patient/family members verbalized understanding. Meghan Echeverria RN MIXER Meghan Echeverria RN [facility] 2024-07-08 16:55:12 Shortness of breath, headaches, chills x3 days. No chest pain. HX: CA in 2012, CVA, +Eloquis, pacemaker, A-fib. MIXER Paulette Calle RN [facility] 2024-07-07 13:00:00 Summary: MRI MODE Patient's Biotronik Edora pacemaker placed into MRI Auto mode DOO @90. Auto mode deactivates on 07/21. F Herrera [facility] 2024-04-29 15:53:46 TRANSITIONAL CARE MANAGEMENT ASSESSMENT 04/29/2024 Sherrie Hernandez [id number] Sherrie Hernandez is a 68 year old /White female was admitted on 04/25/24 to [facility] ICU. She was discharged on 04/28/24 with discharge disposition of HR- Routine Discharge. Admitting Physician: Shira Salgado Discharge Diagnosis: Flu-like symptoms Other Diagnosis: History of stroke A-fib with RVR Possible nonsustained V. tach run Hypertension Depression Diabetes Hyperlipidemia Hypomagnesia No linked episodes TCM Ywz-lsxn-pi-face outreach documentation: Discharge Assessment Chart Assessed: 04/29/24 Future Appointments: Future Appointments Provider Department Dept Phone 05/24/2024 11:40 AM Alan Mcclain MD [facility] [place] [facility] [phone] Transition CM attempted to contact patient x2. CM left a discreet voicemail explaining purpose of call and call back information. Niya Smith RN [facility] 2024-04-29 13:51:29 CM LVM to return call. Will attempt again at a later time. [facility] 2024-04-28 15:15:56 Problem: Discharge Planning Goal: Adequate [...] Outcome: Adequate for discharge Huong William RN [facility] 2024-04-28 11:36:54 Problem: Discharge Planning Goal: Adequate [...] Absence of falls Outcome: Progressing as expected [facility] 2024-04-28 05:11:53 Problem: Falls, Risk of Goal: Absence of falls Outcome: Progressing as expected [facility] Stephanie Loredo RN [facility] 2024-04-28 00:25:51 Problem: Discharge Planning Goal: Adequate [...] skin breakdown Outcome: Progressing as expected T [facility] 2024-04-27 16:49:24 Problem: Discharge Planning Goal: Adequate [...] venous thromboembolism (Risk) Outcome: Progressing as expected [facility] Nahomi Reinoso RN [facility] 2024-04-26 22:14:20 Problem: Discharge Planning Goal: Adequate [...] Outcome: Progressing as expected Korina Vu RN [facility] 2024-04-26 07:28:50 Problem: Discharge Planning Goal: Adequate [...] Outcome: Progressing as expected Delvin Turcios RN [facility] 2024-04-26 05:08:56 Problem: Discharge Planning Goal: Adequate [...] venous thromboembolism (Risk) Outcome: Progressing as expected [facility] 2024-04-26 00:35:22 Patient admitted to ICU for diagnosis of V-Tach Patient agrees to admission, discussed plan of care with patient and family. Patient is awake, alert, oriented, resp reg unlabored, color appropriate for race, PIV intact No adverse reaction to medications administered while in ED Belongings with patient to unit Report to Lizzie MAYORGA [facility] Boston Ceballos RN [facility] 2024-04-26 00:16:39 Report given to Lizzie MAYORGA in ICU [facility] 2024-04-25 23:24:58 Associated Order(s): Critical Care Critical [...] separately billable procedures and treating other patients. [facility] 2024-04-25 23:05:52 V Tach observed on tele monitor, provider notified. [facility] 2024-04-25 20:37:51 Pt arrived ambulatory without assist. Pt c/o fever, cough, N/V, headache, body aches, and sore throat, started on Friday. Pt took home COVID test yesterday and it was negative. Neisha Babb RN [facility] 2024-04-25 20:31:00 Images from the original note were not included. EMERGENCY DEPARTMENT ENCOUNTER [facility] Patient Name: Sherrie Hernandez Date of : 1955 68 year old Exam Room:TX2/TX2 Primary Care Physician: Sushila Babb Pre- Hospital Patient Escorted by: Self [9] Mode of Arrival: Personal means [1] EMS Treatment Prior to ED Arrival: PILLOW AGENT treatment: None ED Events Date/Time Event User [...] ROBOTIC ASSISTED SALPINGO-OOPHORECTOMY 12/17/2012 Surgeon: Reji Barriga [facility]; Location: [facility] LAPAROSCOPIC ROBOTIC ASSISTED VAGINAL HYSTERECTOMY 12/17/2012 Surgeon: Reji Barriga [facility]; Location: [facility] LYSIS OF ABDOMINAL ADHESIONS 02/03/2013 Surgeon: Get Whittington MD; Location: [facility] MAMMOGRAM, BILATERAL-DIAGNOSTIC 2012 REMOVAL GALLBLADDER 1998 ROBOTIC ASSISTED LYMPH NODE DISSECTION (SHX) 02/03/2013 Surgeon: Get Whittintgon MD; Location: [facility] TUBAL LIGATION 1989 WIDE LOCAL VULVAR LESION EXCISION 06/13/2014 WIDE LOCAL VULVAR LESION EXCISION N/A 06/13/2014 Surgeon: Get Whittington MD; Location: [facility] Allergies Allergies Allergen Reactions Paclitaxel [...] 0.01 - 0.07 10*3/uL COMP. METABOLIC PANEL (75270) - Abnormal NA 134 (*) 135 - [...] Care CBC WITH DIFF COMP. METABOLIC PANEL (67655) URINALYSIS LIPASE TROPONIN I N-TERMINAL PRO-BNP Influenza [...] components within normal limits COMP. METABOLIC PANEL (13694) - Abnormal; Notable for the following components: [...] if necessary. ED Course as of 04/25/242326 [place] Apr 25, [id number] Bed requested [DN] ED [...] recurs) AdmissionCare documentation entered by: Daniele Maharaj [facility] [employer], edition, Copyright ? 2023 [employer] All Rights Reserved. [id number]:24:27-05:00 Medical Decision Making Problems Addressed: COVID: acute [...] is not hypoxic. Interpreted. Reassessment:stable Communication with analysis consultant: None. Limitations to patient care and [...] - Observation Condition -- Comment Treatment Team: [facility] [[id number]] Patient's Medications START taking these medications No [...] Appointments In 4 weeks Alan Mcclain MD [facility] [place] [facility], UDAY Maharaj Jr., MD Clinical Sed Special Education Teacher [facility] Emergency Department [employer] is used frequently and may produce errors. Promptly contact for obvious discrepancies. Daniele Maharaj MD 04/25/24 2327 Daniele Maharaj MD 04/26/24 0028 T [facility] 2024-04-25 20:31:00 AdmissionCare Guideline: Ventricular Arrhythmias - [...] recurs) AdmissionCare documentation entered by: Daniele Maharaj [facility], 28th edition, Copyright ? [address] [facility] All Rights Reserved. [id number]:24:27-05:00 [facility] 2024-04-09 09:24:21 Received referral from [facility] to Dr Mcclain faxed to ref team received confirmation filed in cabinet T Deirdre Edgar [facility] 2023-09-12 15:57:29 Received medical records request from Dr Santos office will sent via fax to [facility] Records if any questions regarding this request reach out to [facility]
[2024-12-13 12:35] LABS: Absolute Basophils 0.1 K/uL (0-0.5); Absolute Eosinophils 0.1 K/uL (0-0.5); Absolute Lymphocytes (CBC) 1.3 K/uL (0.7-4.9); Absolute Monocytes 0.8 K/uL (0.1-1.3); Absolute Neutrophil 9.9 K/uL (1.8-8.0); Basophils % 0.6 % (0-1.3); Eosinophils % 0.7 % (0-4.4); Hematocrit 37.4 % (36.0-45.0); Hemoglobin 12.8 g/dL (12.0-15.0); Lymphocytes % 10.8 % (15.3-44.8); MCH 30.4 pg (27.0-35.0); MCHC 34.2 g/dL (32.0-36.0); MCV 88.8 fL (80-100); MPV 7.9 fL (7.6-11.3); Monocytes % 6.9 % (3.3-12.3); Platelets 232 thou/uL (152-406); RBC Red Blood Cell Count 4.21 M/uL (3.86-4.86); Red Cell Distribution Width 13.9 % (12.1-15.2)
--- NOTE | 2024-12-13 12:41 | RAD REPORT ---
EXAMINATION: Head Brain Wo Cont CLINICAL INDICATION: Female, 69 years old.SYNCOPE TECHNIQUE: Axial CT images from the skull base to the vertex without intravenous contrast. Coronal an d sagittal reformatted images were created from the data set. One or more of the following dose reduction techniques were used: Automated exposure control, adjustment of the mA and/or kV according to patient size, and/or iterative reconstruction. Unless otherwise specified, incidental findings do not require dedicated imaging follow-up. [id number]. COMPARISON: 10/31/2024 FINDINGS: INTRACRANIAL: No acute intracranial hemorrhage. No hydrocephalus. No mass effect or midline shift. No significant white matter disease. VASCULATURE: No visualized abnormalities in the arteries or dural venous sinuses. SCALP/SKULL: No calvarial fracture identified. No acute soft tissue abnormality. SINUSES: The visualized paranasal sinuses are mostly clear. No significant mastoid fluid. IMPRESSION: No acute intracranial abnormality. No significant change from prior.
[2024-12-13 12:42] LABS: PT Prothrombin Time 14.9 SECONDS (10-13.0); PTT, Activated Partial Thromb 29.4 SECONDS (27.2-37.4); Protime INR 1.32
[2024-12-13] MEDS ORDERED: NA CHLORIDE 0.9% 1,000 ML ONE (12:43)
[2024-12-13 12:54] LABS: Albumin 3.5 g/dL (3.4-5.0); Albumin/Globulin Ratio 1.1 (1.1-1.8); Anion Gap 10.8 mEq/L (5.0-15.0); Globulin 3.2 g/dL (2.3-3.5); Potassium 3.8 mEq/L (3.5-5.1); Protein, Total 6.7 g/dL (6.4-8.2)
--- NOTE | 2024-12-13 12:58 | RAD REPORT ---
EXAM: Chest Single View HISTORY: 69 years Female syncope COMPARISON: 10/31/2024 FINDINGS: LUNGS/PLEURA: The lungs are clear. No pleural effusions or pneumothorax. No pulmonary edema. CARDIAC/MEDIASTINUM: The cardiac silhouette is within normal limits. UPPER ABDOMEN: No significant abnormality. BONES: No acute abnormality. LINES/TUBES/OTHER: Portacath. Left subclavian approach pacemaker. IMPRESSION: No evidence of acute cardiopulmonary disease. No significant change from prior.
--- NOTE | 2024-12-13 12:58 | RAD REPORT ---
EXAMINATION: Tib Fib Right VIEWS: As above CLINICAL INDICATION: Female, 69 years old. PAIN COMPARISON: No prior exam. IMPRESSION: No acute fracture. No acute soft tissue abnormality.
--- NOTE | 2024-12-13 12:59 | RAD REPORT ---
EXAMINATION: Ankle Right 3 View VIEWS: As above CLINICAL INDICATION: Female, 69 years old. PAIN COMPARISON: No prior exam. IMPRESSION: Avulsion fracture from the tip of the fibula. Soft tissue swelling is present. Alignment of the ankle is maintained. Calcaneal spurs.
--- NOTE | 2024-12-13 13:41 | RAD REPORT ---
EXAMINATION: Abdomen Pelvis W Contrast CLINICAL INDICATION: Female, 69 years old.ABD PAIN TECHNIQUE: CT abdomen and pelvis was performed, after the administration of IV contrast, as [facility]. Axial, sagittal and coronal reconstructions were obtained. One or more of the following dose reduction techniques were used: Automated exposure control, adjustment of the mA and/o r kV according to patient size, and/or iterative reconstruction. Unless otherwise specified, incidental findings do not require dedicated imaging follow-up. [id number]. COMPARISON: No prior exam. FINDINGS: LOWER CHEST: No acute process identified.No significant pericardial effusion. Mild coronary artery ca lcifications. Pacemaker leads. UPPER GI: No significant abnormality. LIVER: Hepatic steatosis, but otherwise unremarkable. GALLBLADDER/BILE DUCTS: Cholecystectomy. Mild extra-hepatic biliary ductal dilatation is likely relat ed to the post-cholecystectomy state. Consider correlating with LFT's.? PANCREAS: No mass, ductal dilation, or tabatha-pancreatic fluid. SPLEEN: Unremarkable. ADRENALS: No adrenal masses. KIDNEYS AND URETERS: No hydronephrosis.No suspicious renal mass.Nonobstructing renal calculi.No urete ral calculi. ABDOMINAL AORTA AND OTHER VESSELS: Severe atherosclerotic changes. No aortic aneurysm. PERITONEUM: No abnormal free fluid. No free air. LYMPH NODES: No pathologic lymphadenopathy. ABDOMINAL WALL: Unremarkable SMALL BOWEL/COLON: Small bowel has normal course and caliber. No colonic wall thickening or pericolon ic inflammatory changes.Appendix absent. Moderate formed stool burden. URINARY BLADDER: Nonspecific circumferential bladder wall thickening. REPRODUCTIVE ORGANS: No pathologic process. MUSCULOSKELETAL: Multilevel degenerative changes in the spine. No acute fracture. ADDITIONAL FINDINGS: None. IMPRESSION: No acute findings within the abdomen or pelvis. No bowel obstruction. Incidental findings as noted above.
--- NOTE | 2024-12-13 16:22 | EDPHYS ---
Physician Documentation [facility] Name: Edith Hernandez Age: 69 yrs Sex: Female : 1955 Arrival Date: 12/13/2024 Time: 11:44 Bed 7 Private MD: ED Physician Juwan Mcknight HPI: 12/13 12:36 This 69 yrs old Female presents to ER via EMS with complaints of syncope. rn 12:36 The patient has experienced syncope. Onset: The symptoms/episode began/occurred this rn morning. Associated injury: Right lower extremity: pain, swelling, Other:. Associated signs and symptoms: Pertinent positives: dizziness, lightheadedness, Pertinent negatives:. 12:48 Patient reports was in shower, got lightheaded, fell and had syncopal episode. Reports rn anterior to right ankle as a result of the fall. Already had an appointment with her doctor so waited for appointment. Directed to come here. Patient with non-STEMI 1 month ago, on blood thinners. Patient denies any chest pain or shortness of breath. Reports mild abdominal pain. Reports right ankle injury with swelling. No other changes in medication recently. No focal weakness or numbness. No speech problem. Reports blurred vision with dizziness and feeling lightheaded.. Historical: - Allergies: 12:03 No Known Allergies; ll1 - PMHx: 12:03 Atrial fibrillation; Cancer; Cerebrovascular accident; diabetes mellitus; Hypertensive ll1 disorder; Stroke Left side defecit; NSTEMI (right elbow repair); - PSHx: 12:03 section; hysterectomy; pacemaker; right elbow repair (ke); ll1 - Immunization history:: Adult Immunizations up to date. - Infectious Disease History:: Denies. - Social history:: Smoking status: Patient denies any tobacco usage or history of. ROS: 12:49 Constitutional: Negative for fever, chills, and weight loss, Eyes: Negative for injury, rn pain, redness, and discharge, ENT: Negative for injury, pain, and discharge, Neck: Negative for injury, pain, and swelling, Cardiovascular: Negative for chest pain, palpitations, and edema, Respiratory: Negative for shortness of breath, cough, wheezing, and pleuritic chest pain, Abdomen/GI: Positive for mild abdominal pain Back: Negative for injury and pain, : Negative for injury, bleeding, discharge, and swelling, MS/Extremity: Negative for injury and deformity, Skin: Negative for injury, rash, and discoloration, Neuro: Positive for dizziness and lightheadedness. Negative for focal weakness or seizure Exam: 12:49 Constitutional: This is a well developed, well nourished patient who is awake, alert, rn and in no acute distress. Head/Face: Normocephalic, atraumatic. ENT: Dry mucous membranes, no stridor Cardiovascular: Regular rate and rhythm. No pulse deficits. Respiratory: Lungs have equal breath sounds bilaterally, clear to auscultation and percussion. No rales, rhonchi or wheezes noted. No increased work of breathing, no retractions or nasal flaring. Abdomen/GI: Soft, mild periumbilical and left sided abdominal tenderness without masses or rebound. No peritoneal signs. No distention. Skin: Warm, dry MS/ Extremity: Pulses equal, no cyanosis. Neurovascular intact. Moderate swelling noted to the lateral malleolus of the right ankle. No open wounds. No cyanosis. Neuro: Awake and alert, GCS 15, oriented to person, place, time, and situation. Motor strength 5/5 in all extremities. Sensory grossly intact. 12:50 ECG was reviewed by the Attending Physician. rn Vital Signs: 12:04 BP 84 / 52; Pulse 78; Resp 17; Temp 98; Pulse Ox 98% on R/A; Weight 74.84 kg; Height 5 ll1 ft. 4 in. ; 12:40 BP 101 / 46; Pulse 63; Resp 16; Pulse Ox 100% ; ll1 13:10 BP 112 / 62; Pulse 72; Resp 16; Pulse Ox 100% on R/A; ll1 13:41 BP 118 / 67; Pulse 80; Resp 16; Pulse Ox 98% ; ll1 15:04 BP 137 / 75; Pulse 70; Resp 17; Pulse Ox 97% on R/A; ll1 17:30 BP 135 / 64; Pulse 62; Resp 16; Pulse Ox 100% on R/A; jb4 12:04 Body Mass Index 28.32 (74.84 kg, 162.56 cm) ll1 MDM: 12:03 Medical Screening Exam initiated rn 13:27 ED course: Blood pressure improved to 118/67.. rn 16:19 Differential Diagnosis: aortic aneurysm, cardiac arrhythmia, emotional response, rn idiopathic syncope, vasovagal episode. Data reviewed: vital signs, nurses notes, lab test result(s), EKG, radiologic studies, CT scan, plain films, and as a result, I will admit patient. Consideration of Admission/Observation Patient was admitted/placed on observation. Escalation of care including admission/observation considered. Counseling: I had a detailed discussion with the patient and/or guardian regarding the historical points, exam findings, and any diagnostic results supporting the discharge/admit diagnosis, lab results, radiology results, the need for further work-up and treatment in the hospital. Response to treatment: the patient's symptoms have mildly improved after treatment. ED course: Patient without a source of infection identified at this time. Patient is afebrile. Possible elevated lactic acid due to hypotension and not sepsis. Blood pressure improved after IV fluids. Patient feels better but not back to baseline and still reports feeling lightheaded. Will admit to hospital service for further care.. 12/13 12:03 Order name: Blood Culture Adult (2) 12/13 12:03 Order name: CBC with Diff; Complete Time: 12:47 12/13 12:03 Order name: CMP; Complete Time: 13:27 12/13 12:03 Order name: Lactate w/ 2H reflex if indic.; Complete Time: 13:27 12/13 12:03 Order name: Protime (+inr); Complete Time: 12:47 12/13 12:03 Order name: Ptt, Activated; Complete Time: 12:47 12/13 12:03 Order name: Urinalysis w/ reflexes 12/13 12:04 Order name: Troponin High Sensitivity; Complete Time: 13:27 12/13 12:56 Order name: Ghost Lactate-NO COLLECT Timer; Complete Time: 15:46 [facility] 12/13 16:33 Order name: Lactate Sepsis 2 HR Follow-up EDKS 12/13 17:13 Order name: Basic Metabolic Panel EDKS 12/13 17:13 Order name: Basic Metabolic Panel EDKS 12/13 17:13 Order name: Basic Metabolic Panel EDKS 12/13 17:13 Order name: Basic Metabolic Panel EDKS 12/13 17:13 Order name: Magnesium EDKS 12/13 17:13 Order name: Magnesium EDKS 12/13 17:13 Order name: Magnesium EDMS 12/13 17:13 Order name: Magnesium EDMS 12/13 17:13 Order name: NT PRO-BNP EDMS 12/13 17:13 Order name: NT PRO-BNP EDMS 12/13 17:13 Order name: CBC with Automated Diff EDMS 12/13 17:13 Order name: CBC with Automated Diff EDMS 12/13 17:13 Order name: CBC with Automated Diff EDMS 12/13 17:13 Order name: CBC with Automated Diff EDMS 12/13 17:14 Order name: NT PRO-BNP EDMS 12/13 17:14 Order name: Troponin High Sensitivity EDMS 12/13 17:14 Order name: Troponin High Sensitivity EDMS 12/13 17:14 Order name: Troponin High Sensitivity EDMS 12/13 17:14 Order name: Troponin High Sensitivity EDMS 12/13 12:03 Order name: Chest Single View XRAY; Complete Time: 13:27 rn 12/13 12:04 Order name: CT Head Brain wo Cont; Complete Time: 12:47 rn 12/13 12:13 Order name: XRAY Ankle RIGHT 3 view; Complete Time: 13:27 rn 12/13 12:13 Order name: XRAY Tib Fib RIGHT; Complete Time: 13:27 rn 12/13 12:48 Order name: CT Abd/Pelvis - IV Contrast Only; Complete Time: 13:42 rn 12/13 17:13 Order name: Stress Echo EDKS 12/13 17:13 Order name: Stress Echo EDKS 12/13 12:03 Order name: EKG; Complete Time: 12:04 rn 12/13 17:08 Order name: CONS Physician Consult EDKS 12/13 17:15 Order name: Physical Therapy Consult EDKS 12/13 12:03 Order name: Accucheck; Complete Time: 12:40 rn 12/13 12:03 Order name: Cardiac monitoring; Complete Time: 12:40 rn 12/13 12:03 Order name: EKG - Nurse/Tech; Complete Time: 12:40 rn 12/13 12:03 Order name: IV Saline Lock - Large Bore; Complete Time: 12:08 rn 12/13 12:03 Order name: Labs collected and sent; Complete Time: 12:08 rn 12/13 12:03 Order name: O2 Per Protocol; Complete Time: 12:08 rn 12/13 12:03 Order name: O2 Sat Monitoring; Complete Time: 12:08 rn 12/13 12:03 Order name: Vital Signs; Complete Time: 12:08 rn 12/13 16:18 Order name: Walking boot; Complete Time: 16:46 rn EC:50 Rate is 68 beats/min. Rhythm is regular. QRS interval is normal. QT interval is normal. rn No Q waves. T waves are Inverted in leads II, III, aVF, V5, V6. No ST changes noted. Clinical impression: NSR w/ Non-specific ST/T Changes. Interpreted by me. Reviewed by me. Administered Medications: 12:08 Drug: NS 0.9% IV 1000 ml IV at 1000 ml once; to be given as a bolus over 60 minutes ll1 Route: IV; Rate: 1000 ml; Site: right wrist; 12:40 Follow up: Response: No adverse reaction; IV Status: Completed infusion; IV Intake: ll1 1000ml 16:37 Drug: HYDROcodone-acetaminophen PO 5 mg-325 mg 1 tabs PO once Route: PO; iw 16:37 Drug: Rocephin IV 1 grams IV at calculated rate once; Given slow IV push per pharmacy iw instructions Route: IV; Rate: calculated rate; Site: right wrist; Disposition Summary: 12/13/24 16:21 Hospitalization Ordered Notes: Hospitalization Status: Inpatient Admission rn Provider: Darren Hickman rn Location: Telemetry/[facility] (Inpatient) rn Condition: Stable rn Problem: new rn Symptoms: have improved rn Bed/Room Type: Standard rn Room Assignment: 213(12/13/24 17:29) bd Diagnosis - Syncope rn - Hypotension, unspecified rn - Dizziness and giddiness rn Forms: - Medication Reconciliation Form rn - SBAR form rn - Leadership Thank You Letter furnishings conservator time excluding procedures: 16:20 Critical care time: Bedside Care: 30 minutes, Consultation: 5 minutes. Total time: 35 rn minutes Signatures: Dispatcher [employer] Nicole Day Irene, RN RN Juwan Charles MD MD rn Lewis, Lynsay, RN RN ll1 Corrections: (The following items were deleted from the chart) 12:04 12:04 Troponin High Sensitivity+C.LAB.BRZ ordered. EDKS EDKS 17:29 16:21 rn bd
--- NOTE | 2024-12-13 16:22 | ER ---
Nurse's Notes [facility] Name: Edith Hernandez Age: 69 yrs Sex: Female : 1955 Arrival Date: 12/13/2024 Time: 11:44 Bed 7 Private MD: Diagnosis: Syncope;Hypotension, unspecified;Dizziness and giddiness Presentation: 12/13 12:04 Chief complaint: Patient states: Syncopal episode this morning. Went to Dr. Robertson 1 office, sent in for further evaluation. Still feels weak and dizzy with some nausea. R ankle pain/swelling noted. EMS states: BP 70's systolic upon arrival. 20 G R wrist NS 500 ml bolus infusing. NSTEMI last week. Fingerstick 230, last BP 93/60. Coronavirus screen: Client denies travel out of the [place] in the last 14 days. At this time, the client does not indicate any symptoms associated with coronavirus-19. Ebola Screen: Patient denies travel to an Ebola-affected area in the 21 days before illness onset. Initial Sepsis Screen: Does the patient meet any 2 criteria? No. Patient's initial sepsis screen is negative. Does the patient have a suspected source of infection? No. Patient's initial sepsis screen is negative. Risk Assessment: Do you want to hurt yourself or someone else? Patient reports no desire to harm self or others. Onset of symptoms was December 13, 2024. 12:04 Method Of Arrival: EMS: [facility] 12:04 Acuity: ZHANG 2 ll1 Triage Assessment: 12:07 General: Appears uncomfortable, Behavior is calm, cooperative, appropriate for age. ll1 Pain: Complains of pain in right leg Quality of pain is described as aching. Neuro: Reports dizziness, a syncopal episode weakness. GI: Reports nausea. Musculoskeletal: Reports pain in R ankle. Historical: - Allergies: 12:03 No Known Allergies; ll1 - PMHx: 12:03 Atrial fibrillation; Cancer; Cerebrovascular accident; diabetes mellitus; Hypertensive ll1 disorder; Stroke Left side defecit; NSTEMI (right elbow repair); - PSHx: 12:03 section; hysterectomy; pacemaker; right elbow repair (ke); ll1 - Immunization history:: Adult Immunizations up to date. - Infectious Disease History:: Denies. - Social history:: Smoking status: Patient denies any tobacco usage or history of. Assessment: 12:24 Reassessment: No changes from previously documented assessment. Patient and/or family ll1 updated on plan of care and expected duration. Pain level reassessed. Patient is alert, oriented x 3, equal unlabored respirations, skin warm/dry/pink. 12:40 Reassessment: No changes from previously documented assessment. Patient and/or family ll1 updated on plan of care and expected duration. Pain level reassessed. Patient is alert, oriented x 3, equal unlabored respirations, skin warm/dry/pink. 13:05 Reassessment: No changes from previously documented assessment. Patient and/or family ll1 updated on plan of care and expected duration. Pain level reassessed. Patient is alert, oriented x 3, equal unlabored respirations, skin warm/dry/pink. Patient states feeling better. 15:11 Reassessment: Patient appears in no apparent distress at this time. Patient and/or jb4 family updated on plan of care and expected duration. Pain level reassessed. Patient is alert, oriented x 3, equal unlabored respirations, skin warm/dry/pink. 16:19 Reassessment: pt requesting pain medicine for ankle pain , Dr. Mcknight notified. iw 17:37 Reassessment: Patient appears in no apparent distress at this time. Patient and/or jb4 family updated on plan of care and expected duration. Pain level reassessed. Patient is alert, oriented x 3, equal unlabored respirations, skin warm/dry/pink. Vital Signs: 12:04 BP 84 / 52; Pulse 78; Resp 17; Temp 98; Pulse Ox 98% on R/A; Weight 74.84 kg; Height 5 ll1 ft. 4 in. ; 12:40 BP 101 / 46; Pulse 63; Resp 16; Pulse Ox 100% ; ll1 13:10 BP 112 / 62; Pulse 72; Resp 16; Pulse Ox 100% on R/A; ll1 13:41 BP 118 / 67; Pulse 80; Resp 16; Pulse Ox 98% ; ll1 15:04 BP 137 / 75; Pulse 70; Resp 17; Pulse Ox 97% on R/A; ll1 17:30 BP 135 / 64; Pulse 62; Resp 16; Pulse Ox 100% on R/A; jb4 12:04 Body Mass Index 28.32 (74.84 kg, 162.56 cm) ll1 ED Course: 12:03 Patient arrived in ED. rn 12:03 Juwan Mcknight MD is Attending Physician. rn 12:03 Mike Peck, RN is Primary Nurse. ll1 12:03 Arm band placed on Patient placed in an exam room, on a stretcher. ll1 12:07 Triage completed. ll1 12:07 Maintain EMS IV. Dressing intact. Good blood return noted. Site clean \T\ dry. Gauge \T\ ll 1 site: 20 G R wrist. 12:20 Initial lab(s) drawn, by me, sent to lab. First set of blood cultures drawn. ll1 12:24 Inserted saline lock: 22 gauge in left forearm, using aseptic technique. Blood ll1 collected. Flushed with 10 mL NS. 12:38 CT Head Brain wo Cont In Process Unspecified. EDMS 12:50 Chest Single View XRAY In Process Unspecified. EDMS 12:50 XRAY Ankle RIGHT 3 view In Process Unspecified. EDMS 12:51 XRAY Tib Fib RIGHT In Process Unspecified. EDMS 13:26 CT Abd/Pelvis - IV Contrast Only In Process Unspecified. EDMS 16:20 Darren Hickman PA is Hospitalizing Provider. rn Administered Medications: 12:08 Drug: NS 0.9% IV 1000 ml IV at 1000 ml once; to be given as a bolus over 60 minutes ll1 Route: IV; Rate: 1000 ml; Site: right wrist; 12:40 Follow up: Response: No adverse reaction; IV Status: Completed infusion; IV Intake: ll1 1000ml 16:37 Drug: HYDROcodone-acetaminophen PO 5 mg-325 mg 1 tabs PO once Route: PO; iw 16:37 Drug: Rocephin IV 1 grams IV at calculated rate once; Given slow IV push per pharmacy iw instructions Route: IV; Rate: calculated rate; Site: right wrist; Intake: 12:40 IV: 1000ml; Total: 1000ml. ll1 Outcome: 16:21 Decision to Hospitalize by Provider. rn 18:29 Patient left the ED. bc6 Signatures: Dispatcher [employer] EDMS Jessica Solis RN RN iw Juwan Mcknight MD MD rn Bryson, James, RN RN jb4 Mike Peck RN RN ll1 Karena Martinez bc6
[2024-12-13] MEDS ORDERED: CEFTRIAXONE 1000 MG/VIAL ONE (16:27)
[2024-12-13] MEDS ORDERED: HYDROCODONE/APAP 5/325 MG TAB ONE (16:28)
--- NOTE | 2024-12-13 16:48 | P.PN ---
69-year-old patient presented with syncope, she was going from bathroom to the bedroom, she suddenly passed out, she twisted her right ankle, complaining of pain at right ankle, no other injury. Subjective: No chest pain or shortness of breath. No nausea or vomiting. No abdominal pain. No obvious bleeding. Looks comfortable in the bed. Complaining of mild headache. Objective: General appearance: Alert and comfortable CVS: Normal S1 and S2 Lungs: Clear to auscultation bilaterally Abdomen: Soft, bowel sounds present, no tenderness Extremities: No lower extremity edema Right ankle swollen on the lateral side, tender 69-year-old with syncope, probably secondary to volume depletion, blood pressure better, get an echo, EKG showed flipped T waves, will request cardiology to see her. Right fibula fracture, non-weightbearing and pain meds for now, will request orthopedics consult. Acute kidney injury, give fluids, monitor closely. Fatty liver on CT abdomen will need follow-up with PCP and GI. Chest x-ray negative, CT head negative, CT abdomen negative for acute findings.
--- NOTE | 2024-12-13 17:04 | P.HP ---
Certification for Inpatient Patient admitted to: Inpatient Practitioner: I am a practitioner with admitting privileges, knowledge of patient current condition, hospital course, and medical plan of care. Services: Services provided to patient in accordance with Admission requirements found in Title 42 Section 412.3 of the Code of Federal Regulations Patient History Date of Service: 12/13/24 Reason for admission: Syncopal episode History of Present Illness: 69-year-old female with a past medical history of atrial fibrillation, hypertension, hyperlipidemia, diabetes, CVA with left deficit, presented to the emergency room with a syncopal episode. She reports symptoms started after she got out of shower, she dizzy, lightheaded,. She remembers waking up on the ground, she denies head pain, abdominal pain, chest pain, she reports right lower extremity pain and swelling. Hypotensive in the emergency room 84/52, improved with IV fluids. Rate 78, EKG was sinus rhythm 68, T waves are inverted in leads II, III, aVF, V5 V6, nonspecific ST changes. Right lower extremity avulsion fracture tip of the fibula, soft tissue swelling present, alignment of the ankle maintained. Plan to admit for MedSurg for syncopal episode,, avulsion fracture of the right fibula, with cardiology and orthopedic consult Allergies No Known Allergies Allergy (Verified 11/01/24 03:10) Home Medications: Alendronate [Fosamax*] 10 mg PO DAILY 11/01/24 Amlodipine [Norvasc*] 10 mg PO DAILY 11/01/24 Apixaban [Eliquis] 5 mg PO BID 11/01/24 Atorvastatin Calcium [Lipitor] 80 mg PO BEDTIME 11/01/24 Citalopram Hydrobromide [Celexa] 20 mg PO DAILY 11/01/24 Cyclobenzaprine [Flexeril*] 10 mg PO PRN PRN 11/01/24 Dapagliflozin Propanediol [Farxiga] 10 mg PO DAILY 11/01/24 Ergocalciferol (Vitamin D2) [Vitamin D2] 50,000 units PO DAILY 11/01/24 Gabapentin 100 mg PO PRN PRN 11/01/24 dilTIAZem HCL [Diltiazem 12Hr ER] 60 mg PO DAILY 11/01/24 glipiZIDE [Glipizide] 5 mg PO BID 03/03/25 oxyBUTYnin chloride [Oxybutynin Chloride] 5 mg PO DAILY 11/01/24 Aspirin [Aspirin EC 81 MG] 162 mg PO DAILY #60 tab 11/02/24 Clopidogrel Bisulfate [Plavix*] 75 mg PO DAILY #30 tab 11/02/24 Hydrocodone 10/APAP 325 [[place] 10/325] 1 tab PO Q8H PRN #20 tab 11/02/24 - Past Medical/Surgical History Diabetic: Yes -: diabetes -: hypertension -: atrial fibrillation -: cerebrovascular accident -: cancer Review of Systems 10-point ROS is otherwise unremarkable Physical Examination - Physical Exam General: Alert, In no apparent distress, Oriented x3 HEENT: Atraumatic, Normocephalic, PERRLA Neck: Supple, 2+ carotid pulse no bruit, JVD not distended Respiratory: Clear to auscultation bilaterally, Normal air movement Cardiovascular: No edema, Normal pulses, Regular rate/rhythm, Normal S1 S2 Capillary refill: <2 Seconds Gastrointestinal: Normal bowel sounds, Soft and benign Musculoskeletal: Other (Right lower extremity ankle swelling, tenderness to palpitation) Integumentary: Other (Right lower extremity weakness with ambulation) Neurological: Normal speech, Normal strength at 5/5 x4 extr, Cranial nerves 3-12 intact - Studies Laboratory Data (last 24 hrs) 12/13/24 12/13/24 12/13/24 12:20 12:20 12:18 WBC 12.20 H Hgb 12.8 Hct 37.4 Plt Count 232 PT 14.9 H INR 1.32 APTT 29.4 Sodium 135 L Potassium 3.8 BUN 28 H Creatinine 1.62 H Glucose 268 H Total Bilirubin 1.0 AST 22 ALT 36 Alkaline Phosphatase 76 Assessment and Plan - Problems (Diagnosis) (1) Syncopal episodes Current Visit: Yes Status: Acute (2) Abnormal EKG Current Visit: Yes Status: Acute (3) Avulsion fracture of ankle Current Visit: Yes Status: Acute (4) Atrial fibrillation Current Visit: No Status: Chronic (5) CVA (cerebral vascular accident) Current Visit: No Status: Chronic Qualifiers: CVA mechanism: unspecified Qualified Code(s): I63.9 - Cerebral infarction, unspecified (6) Diabetes mellitus Current Visit: No Status: Chronic Qualifiers: Diabetes mellitus type: type 2 Diabetes mellitus complication status: without complication (7) Hypertension Current Visit: No Status: Acute - Plan Assessment Syncopal episode Abnormal EKG Atrial fibrillation PPM CAD Cardiology consult Echo ordered Telemetry Resume home meds Fall precaution CT ABDOMINAL AORTA AND OTHER VESSELS: Severe atherosclerotic changes Acute kidney injury likely secondary to dehydration Unknown based fluid Gentle IV fluid Leukocytosis Lactic acidosis IV fluid, empiric ceftriaxone Trend lactic Urine culture Right distal avulsion fracture fall with syncopal episode DDD Orthopedic consult Nonweightbearing to the right lower extremity Boot RLE (per Dr. Parrish Neal boot can follow-up in the clinic) PT eval CT of the head no acute fracture CT MUSCULOSKELETAL: Multilevel degenerative changes in the spine. No acute fracture Diabetes Sliding scale insulin Blood glucose monitor Hypertension History of CVA Resume appropriate home meds Hepatic steatosis follow up with GI OP Full code DVT Lovenox Diet cardiac Discharge Plan: Home - Advance Directives Does patient have a Living Will: No Does patient have a Durable POA for Healthcare: No - Code Status/Comfort Care Code Status: Full Code Critical Care: No Time Spent Managing Pts Care (In Minutes): 55
[2024-12-13] MEDS: CEFTRIAXONE 1,000 MG in NA CHLORIDE 0.9% 50 ML IVPB SCH (18:09)
[2024-12-13 20:15] VITALS: BMI 28.3
[2024-12-13] MEDS: INSULIN REGULAR (HUMAN) 100 UNIT/ML SQ SCH (21:00)
[2024-12-13] MEDS: NA CHLORIDE 0.9% 1,000 ML IV SCH (21:25)
[2024-12-13] MEDS: MORPHINE 2 MG/ML SYR IV PRN (21:42)
[2024-12-14 05:15] LABS: Absolute Eosinophils 0.2 K/uL (0-0.5); Absolute Lymphocytes (CBC) 2.2 K/uL (0.7-4.9); Absolute Monocytes 0.7 K/uL (0.1-1.3); Absolute Neutrophil 4.2 K/uL (1.8-8.0); Basophils % 0.6 % (0-1.3); Hematocrit 35.1 % (36.0-45.0); Hemoglobin 12.1 g/dL (12.0-15.0); Lymphocytes % 30.2 % (15.3-44.8); MCH 30.5 pg (27.0-35.0); MCHC 34.4 g/dL (32.0-36.0); MCV 88.6 fL (80-100); MPV 7.5 fL (7.6-11.3); Monocytes % 9.7 % (3.3-12.3); Neutrophils % 56.5 % (41.7-73.7); Nucleated Red Blood Cells % 0.2 % (0-0); Platelets 212 thou/uL (152-406); RBC Red Blood Cell Count 3.96 M/uL (3.86-4.86)
[2024-12-14 05:29] LABS: Anion Gap 6.4 mEq/L (5.0-15.0); Magnesium 2.1 mg/dL (1.6-2.4); Potassium 3.4 mEq/L (3.5-5.1); Troponin High Sensitivity 20.9 pg/mL (<58.9)
[2024-12-14] MEDS ORDERED: FLU (Fluarix Triv) TS24-25(6MOS UP)/PF 45 MCG/0.5 ML Syringe IM ONE (07:30)
[2024-12-14] MEDS: POTASSIUM CL SA 10 MEQ TAB PO ONE (08:39)
[2024-12-14] MEDS: CITALOPRAM 10 MG TABLET PO SCH (08:39)
[2024-12-14] MEDS: lisinopriL 20 MG TAB PO SCH (08:42)
[2024-12-14] MEDS: DILTIAZEM HCL 60 MG PO SCH (08:51)
[2024-12-14] MEDS: ONDANSETRON 4 MG/2 ML VIAL IV PRN (09:46)
[2024-12-14] MEDS: POTASSIUM 25 MEQ EFFERV TAB PO ONE (10:10)
[2024-12-14] MEDS: CLOPIDOGREL 75 MG TABLET PO SCH (11:38)
[2024-12-14] MEDS: HYDROCODONE/APAP 5/325 MG TAB PO PRN (12:36)
[2024-12-14] MEDS: NA CHLORIDE 0.9% 1,000 ML IV SCH (12:36)
--- NOTE | 2024-12-14 12:39 | P.CNS ---
Date of Consult: 12/14/24 Chief Complaint: Syncopal episode History of Present Illness: Patient with PMH of CAD s/p recent PCI of RCA presented with syncope, she felt dizzy while taking a shower and had bilateral shoulder pain, denies chest pain, no palpitations, no SOB, no DONNELLY. Allergies adhesive tape Adverse Reaction (Verified 12/13/24 19:26) Itching/Hives/Rash Home medications list reviewed: Yes Home Medications: Alendronate [Fosamax*] 70 mg PO DIRECTED 11/01/24 Apixaban [Eliquis] 5 mg PO BID 11/01/24 Atorvastatin Calcium [Lipitor] 40 mg PO BEDTIME 11/01/24 Citalopram Hydrobromide [Celexa] 20 mg PO DAILY 11/01/24 Dapagliflozin Propanediol [Farxiga] 10 mg PO DAILY 11/01/24 Ergocalciferol (Vitamin D2) [Vitamin D2] 50,000 units PO DIRECTED 11/01/24 Gabapentin 100 mg PO BID PRN 11/01/24 dilTIAZem HCL [Diltiazem 12Hr ER] 30 mg PO TID 11/01/24 glipiZIDE [Glipizide] 5 mg PO DAILY 11/01/24 Aspirin [Aspirin EC 81 MG] 162 mg PO DAILY #60 tab 11/02/24 Clopidogrel Bisulfate [Plavix*] 75 mg PO DAILY #30 tab 11/02/24 Hydrocodone 10/APAP 325 [[place] 10/325] 1 tab PO Q8H PRN #20 tab 11/02/24 Insulin Degludec [Tresiba Flextouch U-100] 14 unit SQ DIRECTED 12/13/24 Omeprazole 20 mg PO DAILY 12/13/24 hydroCHLOROthiazide [Hydrochlorothiazide] 25 mg PO DAILY 12/13/24 lisinopriL [Lisinopril] 20 mg PO BID 12/13/24 - Past Medical/Surgical History Diabetic: Yes -: diabetes -: hypertension -: atrial fibrillation -: cerebrovascular accident -: cancer - Social History Alcohol use: No CD- Drugs: No Caffeine use: Yes Place of Residence: Home Review of Systems 10-point ROS is otherwise unremarkable Physical Examination Temp Pulse Resp BP Pulse Ox 98.2 F 66 16 105/50 L 98 12/14/24 12:00 12/14/24 12:00 12/14/24 12:00 12/14/24 12:00 12/14/24 12:00 General: Alert, In no apparent distress HEENT: Atraumatic, PERRLA, Mucous membr. moist/pink, EOMI, Sclerae nonicteric Neck: Supple, 2+ carotid pulse no bruit, No LAD, Without JVD or thyroid abnormality Respiratory: Clear to auscultation bilaterally, Normal air movement Cardiovascular: Regular rate/rhythm, Normal S1 S2 Gastrointestinal: Normal bowel sounds, No tenderness Musculoskeletal: No tenderness Integumentary: No rashes Neurological: Normal gait, Normal speech, Normal tone, Normal affect Lymphatics: No axilla or inguinal lymphadenopathy Laboratory Data (last 24 hrs) 12/13/24 12/13/24 12/13/24 12:20 12:20 12:18 WBC 12.20 H Hgb 12.8 Hct 37.4 Plt Count 232 PT 14.9 H INR 1.32 APTT 29.4 Sodium 135 L Potassium 3.8 BUN 28 H Creatinine 1.62 H Glucose 268 H Total Bilirubin 1.0 AST 22 ALT 36 Alkaline Phosphatase 76 - Problems (1) CAD (coronary artery disease) Current Visit: Yes Status: Acute Plan: Patient with recent PCI RCA continue Plavix 75 mg daily continue Lipitor 40 mg daily (2) Syncopal episodes Current Visit: Yes Status: Acute Plan: most likely orthostatic vs vasovagal, BP was low on presentation resume Lisinopril 20 mg daily continue to hold medications and monitor BP. (3) Atrial fibrillation Current Visit: No Status: Chronic Plan: resume Eliquis 5 mg po BID
[2024-12-14] MEDS: DILTIAZEM HCL 60 MG TAB PO SCH (14:00)
--- NOTE | 2024-12-14 15:02 | P.PN ---
Subjective Date of Service: 12/14/24 Chief Complaint: Syncopal episode Subjective: No chest pain or shortness of breath. No nausea or vomiting. No abdominal pain. No obvious bleeding. Looks comfortable in the bed. Right ankle pain controlled Objective: General appearance: Alert and comfortable CVS: Normal S1 and S2 Lungs: Clear to auscultation bilaterally Abdomen: Soft, bowel sounds present, no tenderness Extremities: No lower extremity edema Right ankle swollen and bruise present Physical Examination - Vital Signs Temperature: 98.2 F Blood Pressure: 107/51 Pulse: 67 Respirations: 16 Pulse Ox (%): 98 Assessment And Plan - Plan Assessment Syncopal episode Atrial fibrillation PPM CAD Cardiology consult on board, apprecaite recs Echo ordered Telemetry Fall precaution CT head negative, CT abdomen negative for acute findings. Acute kidney injury likely secondary to dehydration Improved with IV fluid Leukocytosis Lactic acidosis better with IV fluid, DC empiric ceftriaxone prob sec to volume depletion / hemoconcentration Right distal avulsion fracture Orthopedic consult on board Nonweightbearing to the right lower extremity Boot RLE (per Dr. Parrish Neal boot can follow-up in the clinic) PT eval Diabetes Sliding scale insulin Blood glucose monitor Hypertension History of CVA Blood pressure soft, home meds adjusted Hepatic steatosis follow up with GI OP Hypokalemia: Replace and monitor. Plan discussed with the patient and nursing staff, discussed with the case management team.
[2024-12-14] MEDS: ATORVASTATIN 40 MG TAB PO SCH (20:41)
[2024-12-15 04:57] LABS: Absolute Basophils 0.1 K/uL (0-0.5); Absolute Eosinophils 0.3 K/uL (0-0.5); Absolute Lymphocytes (CBC) 2.2 K/uL (0.7-4.9); Absolute Monocytes 0.6 K/uL (0.1-1.3); Absolute Neutrophil 3.3 K/uL (1.8-8.0); Basophils % 0.9 % (0-1.3); Eosinophils % 4.7 % (0-4.4); Hematocrit 31.2 % (36.0-45.0); Hemoglobin 10.8 g/dL (12.0-15.0); Lymphocytes % 33.9 % (15.3-44.8); MCH 31.2 pg (27.0-35.0); MCHC 34.6 g/dL (32.0-36.0); MCV 90.4 fL (80-100); MPV 7.9 fL (7.6-11.3); Monocytes % 9.5 % (3.3-12.3); Platelets 182 thou/uL (152-406); RBC Red Blood Cell Count 3.45 M/uL (3.86-4.86); Red Cell Distribution Width 13.8 % (12.1-15.2)
[2024-12-15 05:10] LABS: Anion Gap 7.8 mEq/L (5.0-15.0); Magnesium 1.9 mg/dL (1.6-2.4); Potassium 3.8 mEq/L (3.5-5.1)
[2024-12-15] MEDS: POTASSIUM CL SA 10 MEQ TAB PO ONE (09:00)
[2024-12-15] MEDS: KCL 20 MEQ/100 mL IVPB 20 MEQ/100 ML BAG IV SCH (10:29)
[2024-12-15] MEDS: NA CHLORIDE 0.9% 250 ML ONE (10:29)
--- NOTE | 2024-12-15 11:07 | CON ---
Date of Consultation: 12/15/2024 Reason For Consultation: Right ankle pain. History Of Present Illness: Edith is a 69-year-old female who presented to the ER after syncopal epi sode with subsequent pain to the right ankle. The patient had x-rays in the emergency room that demo nstrated an avulsion fracture of the right distal fibula. The patient was placed in a Cam boot and w as admitted to the floor for further workup for her syncopal episode. The patient denies any other m usculoskeletal complaints at this time. Review of Systems: As above, otherwise negative. Past Medical History: Includes diabetes, hypertension, atrial fibrillation, history of CVA. Allergies: NO KNOWN DRUG ALLERGIES. Medications: Fosamax, Norvasc, Eliquis, Lipitor, Celexa, Flexeril, Farxiga, gabapentin, diltiazem, g lipizide, oxybutynin, aspirin, Plavix, and [place]. Physical Examination: General: No apparent distress. HEENT: Normocephalic, atraumatic. Neck: Supple. Cardiovascular: Brisk cap refill to all digits. Chest: Nonlabored breathing. Abdomen: Nondistended. Psychiatric: Responsive to exam. Musculoskeletal: Right lower extremity Cam boot in place. Moves toes grossly. The patient is mobil izing with Physical Therapy at the time of the visit. Diagnostic Studies: X-rays of the right ankle demonstrated an overall good alignment of the ankle mo rtise with fibular tip avulsion fracture. Assessment And Plan: Edith is a 69-year-old female with a right distal fibula avulsion fracture. I discussed with the patient at length the diagnosis as well as treatment plan. No surgical interventi on is indicated at this time. The patient may be weightbearing as tolerated in the Cam boot. The pa jeanne may follow up in my clinic in 2 weeks for re-evaluation and x-rays of the right ankle. She meagan l continue with physical therapy to mobilize and may be weightbearing as tolerated on the right lower extremity. CV/MODL Voice ID: [id number] Report ID: [id number]
--- NOTE | 2024-12-15 12:59 | P.PN ---
Subjective Date of Service: 12/15/24 Chief Complaint: Syncopal episode Subjective: No chest pain or shortness of breath. No nausea or vomiting. No abdominal pain. No obvious bleeding. Looks comfortable in the chair. Right ankle pain controlled Objective: General appearance: Alert and comfortable CVS: Normal S1 and S2 Lungs: Clear to auscultation bilaterally Abdomen: Soft, bowel sounds present, no tenderness Extremities: No lower extremity edema Right ankle has cAM boot Physical Examination - Vital Signs Temperature: 98.2 F Blood Pressure: 109/57 Pulse: 72 Respirations: 14 Pulse Ox (%): 98 Assessment And Plan - Plan Assessment Syncopal episode Atrial fibrillation PPM CAD Cardiology consult on board, apprecaite recs Echo pending Fall precaution CT head negative, CT abdomen negative for acute findings. Acute kidney injury likely secondary to dehydration Improved with IV fluid, stop fluids Leukocytosis Lactic acidosis better with IV fluid, DC empiric ceftriaxone prob sec to volume depletion / hemoconcentration Right distal avulsion fracture Orthopedic consult on board CAM Boot RLE PT eval, need rehab Diabetes Sliding scale insulin Blood glucose monitor Hypertension History of CVA Blood pressure soft, home meds adjusted Hepatic steatosis follow up with GI OP Hypokalemia: Replaced, monitor. Plan discussed with the patient and nursing staff, discussed with the case management team.
[2024-12-15] MEDS: DILTIAZEM HCL 60 MG TAB PO SCH (21:18)
[2024-12-15] MEDS ORDERED: LACTULOSE 20 GM/30 ML UCUP PO PRN (21:53)
[2024-12-15] MEDS: DOCUSATE NA 100 MG CAP PO SCH (22:48)
[2024-12-16 04:39] LABS: Absolute Eosinophils 0.3 K/uL (0-0.5); Absolute Lymphocytes (CBC) 2.4 K/uL (0.7-4.9); Absolute Monocytes 0.7 K/uL (0.1-1.3); Absolute Neutrophil 3.5 K/uL (1.8-8.0); Basophils % 0.7 % (0-1.3); Eosinophils % 4.9 % (0-4.4); Hematocrit 31.6 % (36.0-45.0); Hemoglobin 11.1 g/dL (12.0-15.0); Lymphocytes % 34.4 % (15.3-44.8); MCH 31.6 pg (27.0-35.0); MCHC 35.3 g/dL (32.0-36.0); MCV 89.5 fL (80-100); MPV 7.6 fL (7.6-11.3); Monocytes % 9.4 % (3.3-12.3); Neutrophils % 50.6 % (41.7-73.7); Nucleated Red Blood Cells % 0.1 % (0-0); Platelets 189 thou/uL (152-406); RBC Red Blood Cell Count 3.53 M/uL (3.86-4.86); Red Cell Distribution Width 13.6 % (12.1-15.2)
[2024-12-16 04:55] LABS: Phosphorus 3.1 mg/dL (2.5-4.9)
--- NOTE | 2024-12-16 12:17 | P.PN ---
Subjective Date of Service: 12/16/24 Chief Complaint: Syncopal episode Subjective: No chest pain or shortness of breath. No nausea or vomiting. No abdominal pain. No obvious bleeding. Looks comfortable in the bed. Right ankle pain controlled. c/o some pain / bruise at left hip Objective: General appearance: Alert and comfortable CVS: Normal S1 and S2 Lungs: Clear to auscultation bilaterally Abdomen: Soft, bowel sounds present, no tenderness Extremities: No lower extremity edema Right ankle swollen with bruise, CAM boot off at the time of my visit Left hip: Has bruise on the lateral aspect but moves the hip joint okay. Physical Examination - Vital Signs Temperature: 97.8 F Blood Pressure: 131/63 Pulse: 78 Respirations: 14 Pulse Ox (%): 95 Assessment And Plan - Plan 1. Syncopal episode Atrial fibrillation PPM CAD Cardiology consultedd, apprecaite recs Echo pending Fall precaution CT head negative, CT abdomen negative for acute findings. 2. Acute kidney injury likely secondary to dehydration Improved with IV fluid, off fluids 3. Leukocytosis Lactic acidosis better with IV fluid, DC empiric ceftriaxone prob sec to volume depletion / hemoconcentration 4. Right distal avulsion fracture Orthopedic consult on board SHOLA Laddot RLE PT eval, need rehab 5. Diabetes Sliding scale insulin Blood glucose monitor 6. Hypertension History of CVA Blood pressure soft, home meds adjusted 7. Hepatic steatosis follow up with GI OP 8. Hypokalemia: Replaced, monitor. 9. Left hip pain: Will get an x-ray. Plan discussed with the patient and nursing staff, discussed with the case management team. 69-year-old patient present with syncope and right ankle fracture, echo pending, orthopedics consulted, recommended conservative management with cam boot, she is waiting for rehab.
--- NOTE | 2024-12-16 13:07 | RAD REPORT ---
EXAMINATION: XR LEFT HIP CLINICAL INDICATION: . fall, left hip pain TECHNIQUE: Multiple views of the left hip were obtained. COMPARISON: No prior exam. FINDINGS: Mild diffuse osteopenia. No fracture, dislocation or AVN.
--- NOTE | 2024-12-17 07:19 | P.PN ---
Date of Service: 12/17/24 Subjective Clinical symptoms are stable. Waiting for placement at this time. Unfortunately patient unlikely to be excepted. Physical Examination - Vital Signs Reviewed -Physical examination General appearance: Alert and comfortable CVS: Normal S1 and S2 Lungs: Clear to auscultation bilaterally Abdomen: Soft, bowel sounds present, no tenderness Extremities: No lower extremity edema Msk: Right ankle swollen with bruise, CAM boot off at the time of my visit; Left hip: Has bruise on the lateral aspect but moves the hip joint okay. Assessment/Plan -Assessment/Plan 1. Syncopal episode secondary to atrial fibrillation; s/p PPM; h/o of CAD; cardiac status is stable; waiting for placement and will resume anticoagulation antiarrhythmics 2. Acute kidney injury likely secondary to dehydration; improved with IV fluid, off fluids 3. Leukocytosis; white blood cell count has improved 4. Right distal avulsion fracture; appreciate Ortho assessment and patient with cam boot to right lower extremity; continue with physical therapy and waiting for placement. Unlikely to qualify for inpatient rehab and will need to go to [facility]. 5. Diabetes; Sliding scale insulin; Blood glucose monitor 6. Hypertension; blood pressure soft, home meds adjusted 7. Hepatic steatosis; follow up with GI OP 8. Hypokalemia: Replaced, monitor. 9. Left hip pain: Will get an x-ray. Plan discussed with the patient and nursing staff, discussed with the case management team.
[2024-12-18 01:13] VITALS: O2SAT 96
[2024-12-18 05:27] LABS: Absolute Basophils 0.1 K/uL (0-0.5); Absolute Eosinophils 0.3 K/uL (0-0.5); Absolute Lymphocytes (CBC) 2.1 K/uL (0.7-4.9); Absolute Monocytes 0.5 K/uL (0.1-1.3); Absolute Neutrophil 3.3 K/uL (1.8-8.0); Basophils % 0.9 % (0-1.3); Eosinophils % 4.4 % (0-4.4); Hemoglobin 11.7 g/dL (12.0-15.0); Lymphocytes % 32.8 % (15.3-44.8); MCH 31.3 pg (27.0-35.0); MCHC 35.5 g/dL (32.0-36.0); MPV 7.4 fL (7.6-11.3); Monocytes % 8.6 % (3.3-12.3); Neutrophils % 53.3 % (41.7-73.7); Platelets 247 thou/uL (152-406); RBC Red Blood Cell Count 3.75 M/uL (3.86-4.86); Red Cell Distribution Width 13.3 % (12.1-15.2)
[2024-12-18 05:41] LABS: Anion Gap 7.7 mEq/L (5.0-15.0); Magnesium 1.8 mg/dL (1.6-2.4); Potassium 3.7 mEq/L (3.5-5.1)
[2024-12-18] MEDS: MAGNESIUM SULFATE 1 gm IVPB 1 GM/100 ML BAG IV ONE (06:37)
[2024-12-18] MEDS: POTASSIUM CL SA 10 MEQ TAB PO ONE (08:02)
[2024-12-19 06:19] LABS: Anion Gap 8.8 mEq/L (5.0-15.0); Magnesium 2.2 mg/dL (1.6-2.4); Potassium 3.8 mEq/L (3.5-5.1)
[2024-12-19] MEDS: POTASSIUM 25 MEQ EFFERV TAB PO ONE (09:01)
[2024-12-19] MEDS: HYDROCODONE/APAP 5/325 MG TAB PO ONE (20:50)
--- NOTE | 2024-12-20 04:06 | P.PN ---
Date of Service: 12/18/24 Subjective Patient doing better. Having a hard time is managing pain but participate in any therapy. Pain is controlled. Awaiting for placement at long term facility. If they denied patient' s appeal and patient will want to go home with outpatient follow-up. Physical Examination - Vital Signs Reviewed -Physical examination General appearance: Alert and comfortable CVS: RRR with no murmur; normal S1 and S2 Lungs: Clear to auscultation bilaterally Abdomen: Soft, bowel sounds present, no tenderness Extremities: No lower extremity edema Msk: Right ankle swollen with bruise, CAM boot off at the time of my visit; Left hip: Has bruise on the lateral aspect but moves the hip joint okay. Assessment/Plan -Assessment/Plan Continue with plan of care as mentioned below: 1. Syncopal episode secondary to atrial fibrillation; s/p PPM; h/o of CAD; cardiac status is stable; waiting for placement and will resume anticoagulation antiarrhythmics 2. Acute kidney injury likely secondary to dehydration; improved with IV fluid, off fluids 3. Leukocytosis; white blood cell count has improved 4. Right distal avulsion fracture; appreciate Ortho assessment and patient with cam boot to right lower extremity; continue with physical therapy and waiting for placement. Unlikely to qualify for inpatient rehab and will need to go to long term or home with HH. 5. Diabetes; Sliding scale insulin; Blood glucose monitor 6. Hypertension; blood pressure soft, home meds adjusted 7. Hepatic steatosis; follow up with GI OP 8. Hypokalemia: Replaced, monitor. 9. Left hip pain: Will get an x-ray. Plan discussed with the patient and nursing staff, discussed with the case management team.
--- NOTE | 2024-12-20 04:07 | P.PN ---
Date of Service: 12/19/24 Subjective Patient continues to improve and patient's clinical symptoms are stable. Physical Examination - Vital Signs Reviewed -Physical examination General appearance: Alert and comfortable CVS: irreg, irreg with normal S1 and S2 Lungs: Clear to auscultation bilaterally Abdomen: Soft, bowel sounds present, no tenderness Extremities: No lower extremity edema Msk: Right ankle swollen with bruise, CAM boot off at the time of my visit; Left hip: Has bruise on the lateral aspect but moves the hip joint okay. Assessment/Plan -Assessment/Plan Continue with plan of care as mentioned below: 1. Syncopal episode secondary to atrial fibrillation; s/p PPM; h/o of CAD; cardiac status is stable; waiting for placement and will resume anticoagulation antiarrhythmics 2. Acute kidney injury likely secondary to dehydration; improved with IV fluid, off fluids 3. Leukocytosis; white blood cell count has improved 4. Right distal avulsion fracture; appreciate Ortho assessment and patient with cam boot to right lower extremity; continue with physical therapy and waiting for placement. Unlikely to qualify for inpatient rehab and will need to go to residential. 5. Diabetes; Sliding scale insulin; Blood glucose monitor 6. Hypertension; blood pressure soft, home meds adjusted 7. Hepatic steatosis; follow up with GI OP 8. Hypokalemia: Replaced, monitor. 9. Left hip pain: Will get an x-ray. Plan discussed with the patient and nursing staff, discussed with the case management team.
--- NOTE | 2024-12-20 11:32 | P.PN ---
Subjective Date of Service: 12/20/24 Chief Complaint: Syncopal episode Subjective: No chest pain or shortness of breath. No nausea or vomiting. No abdominal pain. No obvious bleeding. Looks comfortable in the bed. Right ankle pain controlled. Objective: General appearance: Alert and comfortable CVS: Normal S1 and S2 Lungs: Clear to auscultation bilaterally Abdomen: Soft, bowel sounds present, no tenderness Extremities: No lower extremity edema Right ankle swollen with bruise, CAM boot off at the time of my visit Physical Examination - Vital Signs Temperature: 98.1 F Blood Pressure: 105/49 Pulse: 73 Respirations: 12 Pulse Ox (%): 95 Assessment And Plan - Plan 1. Syncopal episode Atrial fibrillation PPM CAD Cardiology consulted, apprecaite recs, no further w/u Fall precaution CT head negative, CT abdomen negative for acute findings. 2. Acute kidney injury likely secondary to dehydration Improved with IV fluid, off fluids 3. Leukocytosis Lactic acidosis prob sec to volume depletion / hemoconcentration better with IV fluid, off empiric ceftriaxone 4. Right distal fibula avulsion fracture Orthopedic consult on board TORIN Laddot RLE PT eval, need rehab 5. Diabetes Sliding scale insulin Blood glucose monitor 6. Hypertension History of CVA Blood pressure soft, home meds adjusted 7. Hepatic steatosis follow up with GI OP 8. Hypokalemia: Replaced, monitor. 9. Left hip pain: x-ray neg. Plan discussed with the patient and nursing staff, discussed with the case management team. 69-year-old patient present with syncope and right ankle fracture, orthopedics consulted, recommended conservative management with torin dickinson, waiting for rehab.
[2024-12-21 05:21] LABS: Absolute Basophils 0.1 K/uL (0-0.5); Absolute Eosinophils 0.3 K/uL (0-0.5); Absolute Monocytes 0.6 K/uL (0.1-1.3); Absolute Neutrophil 3.2 K/uL (1.8-8.0); Hematocrit 33.7 % (36.0-45.0); Hemoglobin 11.6 g/dL (12.0-15.0); Lymphocytes % 32.8 % (15.3-44.8); MCH 30.8 pg (27.0-35.0); MCHC 34.5 g/dL (32.0-36.0); MCV 89.3 fL (80-100); MPV 7.1 fL (7.6-11.3); Monocytes % 9.4 % (3.3-12.3); Neutrophils % 51.8 % (41.7-73.7); Platelets 271 thou/uL (152-406); RBC Red Blood Cell Count 3.77 M/uL (3.86-4.86); Red Cell Distribution Width 13.6 % (12.1-15.2)
[2024-12-21 05:51] LABS: Anion Gap 7.9 mEq/L (5.0-15.0); Potassium 3.9 mEq/L (3.5-5.1)
--- NOTE | 2024-12-21 13:52 | P.PN ---
Subjective Date of Service: 12/21/24 Chief Complaint: Syncopal episode Subjective: No chest pain or shortness of breath. No nausea or vomiting. No abdominal pain. No obvious bleeding. Looks comfortable in the bed. Right ankle pain controlled. Left hip pain controlled. Objective: General appearance: Alert and comfortable CVS: Normal S1 and S2 Lungs: Clear to auscultation bilaterally Abdomen: Soft, bowel sounds present, no tenderness Extremities: No lower extremity edema Right ankle swelling and bruise is improving, CAM boot off at the time of my visit Physical Examination - Vital Signs Temperature: 98.1 F Blood Pressure: 120/57 Pulse: 79 Respirations: 18 Pulse Ox (%): 96 Assessment And Plan - Plan 1. Syncopal episode Atrial fibrillation PPM CAD Cardiology consulted, apprecaite recs, no further w/u Fall precaution CT head negative, CT abdomen negative for acute findings. 2. Acute kidney injury likely secondary to dehydration Improved with IV fluid, off fluids 3. Leukocytosis Lactic acidosis prob sec to volume depletion / hemoconcentration better with IV fluid, off empiric ceftriaxone 4. Right distal fibula avulsion fracture Orthopedic consult on board TORIN Dickinson RLE PT eval, need rehab 5. Diabetes Sliding scale insulin Blood glucose monitor 6. Hypertension History of CVA Blood pressure soft, home meds adjusted 7. Hepatic steatosis follow up with GI OP 8. Hypokalemia: Replaced, monitor. 9. Left hip pain: x-ray neg, pain improving. Plan discussed with the patient and nursing staff, discussed with the case management team. Waiting for placement. 69-year-old patient present with syncope and right ankle fracture, orthopedics consulted, recommended conservative management with torin dickinson, waiting for rehab.
--- NOTE | 2024-12-22 10:02 | P.DS ---
Admission Date: 12/13/24 Discharge Date: 12/22/24 Disposition: DC HOME/HOME HEALTH CARE Discharge Condition: GOOD Reason for Admission: Syncopal episode Hospital Course: Discharge diagnosis: 1. Syncopal episode Atrial fibrillation PPM CAD Cardiology consulted, apprecaite recs, no further w/u Fall precaution CT head negative, CT abdomen negative for acute findings. 2. Acute kidney injury likely secondary to dehydration Improved with IV fluid, off fluids 3. Leukocytosis Lactic acidosis prob sec to volume depletion / hemoconcentration better with IV fluid, off empiric ceftriaxone 4. Right distal fibula avulsion fracture Orthopedic consult on board CAM Boot RLE PT eval, need rehab 5. Diabetes 6. Hypertension History of CVA Blood pressure soft, home meds adjusted 7. Hepatic steatosis follow up with GI OP 8. Hypokalemia: Replaced 9. Left hip pain: x-ray neg, pain improving. Plan discussed with the patient and nursing staff, discussed with the case management team. DC home with Hospital course: 69-year-old patient present with syncope and right ankle frac ture, orthopedics consulted, recommended conservative management with cam boot, her pain is reasonably controlled with pain medications, physical therapy was following, initially the plan was to discharge her to rehab or detention facility but unfortunately insurance did not approve this, in the last few days her pain is reasonably controlled, she is working with therapy, so I am planning to discharge her to go home with home health. Subjective: No chest pain or shortness of breath. No nausea or vomiting. No abdominal pain. No obvious bleeding. Looks comfortable in the bed. Right a nkle pain controlled. Left hip pain controlled. Objective: General appearance: Alert and comfortable CVS: Normal S1 and S2 Lungs: Clear to auscultation bilaterally Abdomen: Soft, bowel sounds present, no tenderness Extremities: No lower extremity edema Right ankle swelling and bruise is improving everyday, CAM boot off at the time of my visit Vital Signs/Physical Exam: Temp Pulse Resp BP Pulse Ox 98.1 F 72 20 113/62 96 12/22/24 08:00 12/22/24 08:08 12/22/24 08:00 12/22/24 08:08 12/22/24 08:00 Laboratory Data at Discharge: WBC 6.20 thou/uL (4.3-10.9) 12/21/24 05:14 Hgb 11.6 g/dL (12.0-15.0) L 12/21/24 05:14 Hct 33.7 % (36.0-45.0) L 12/21/24 05:14 Plt Count 271 thou/uL (152-406) 12/21/24 05:14 PT 14.9 SECONDS (10-13.0) H 12/13/24 12:20 INR 1.32 12/13/24 12:20 APTT 29.4 SECONDS (27.2-37.4) 12/13/24 12:20 Sodium 137 mEq/L (136-145) 12/21/24 05:14 Potassium 3.9 mEq/L (3.5-5.1) 12/21/24 05:14 BUN 13 mg/dL (7-18) 12/21/24 05:14 Creatinine 0.59 mg/dL (0.55-1.02) 12/21/24 05:14 Glucose 115 mg/dL (74-106) H 12/21/24 05:14 Phosphorus 3.1 mg/dL (2.5-4.9) 12/16/24 04:16 Magnesium 2.2 mg/dL (1.6-2.4) 12/19/24 05:25 Total Bilirubin 1.0 mg/dL (0.2-1.0) 12/13/24 12:20 AST 22 U/L (15-37) 12/13/24 12:20 ALT 36 U/L (13-56) 12/13/24 12:20 Alkaline Phosphatase 76 U/L (45-117) 12/13/24 12:20 Home Medications: Alendronate [Fosamax*] 70 mg PO DIRECTED 11/01/24 Apixaban [Eliquis] 5 mg PO BID 11/01/24 Atorvastatin Calcium [Lipitor] 40 mg PO BEDTIME 11/01/24 Citalopram Hydrobromide [Celexa] 20 mg PO DAILY 11/01/24 Dapagliflozin Propanediol [Farxiga] 10 mg PO DAILY 11/01/24 Ergocalciferol (Vitamin D2) [Vitamin D2] 50,000 units PO DIRECTED 11/01/24 Gabapentin 100 mg PO BID PRN 11/01/24 glipiZIDE [Glipizide] 5 mg PO DAILY 11/01/24 Aspirin [Aspirin EC 81 MG] 162 mg PO DAILY #60 tab 11/02/24 Clopidogrel Bisulfate [Plavix*] 75 mg PO DAILY #30 tab 11/02/24 Insulin Degludec [Tresiba Flextouch U-100] 14 unit SQ DIRECTED 12/13/24 Omeprazole 20 mg PO DAILY 12/13/24 dilTIAZem HCL [Cardizem] 30 mg PO TID 12/14/24 Hydrocodone 5/APAP 325 [[place] 5/325*] 1 tab PO Q6H PRN #15 tab 12/22/24 New Medications: Hydrocodone 5/APAP 325 [[place] 5/325*] 1 tab PO Q6H PRN #15 tab PRN Reason: Pain Scale 5-7 (Moderate) Diet: ADA Activity: Ad [place] Followup: NONE,NONE [UNKNOWN] - 1 Week (f/u with PCP in 1 week with CBC and CMP) Gary Senior MD [ACTIVE - CAN ADMIT] - 1-2 Weeks Time spent managing pt's care (in minutes): 35
[2024-12-22 12:11] VITALS: BP 107/62; TEMP 98.3
--- NOTE | 2024-12-22 13:18 | EKG ---
Test Date: 2024-12-13 Test Time: 12:36:25 [employer]: TONG MEASUREMENT RESULTS: Intervals: Rate: 68 OR: 186 QRSD: 80 QT: 404 QTc: 429 [place]: P: 58 OR: 186 QRS: 58 T: -84 INTERPRETIVE STATEMENTS: Atrial-paced rhythm Cannot rule out Anterior infarct, age undetermined ST & T wave abnormality, consider inferolateral ischemia Abnormal ECG Compared to ECG 10/31/2024 19:18:06 Myocardial infarct finding now present Possible ischemia now present Sinus rhythm no longer present Atrial premature complex(es) no longer present ST (T wave) deviation still present Electronically Signed On 12-22-24 12:53:33 CDT by Al Rollins
== END 2024-12-22 15:15 | disposition home health service (06) | DRG 312 ==
LOC: ER 11:44 → 2ND 17:04
PROVIDERS: ADMIT Hospitalist; ATTEND Hospitalist
DX: R55 Syncope and collapse (principal); N17.9 Acute kidney failure, unspecified; I48.20 Chronic atrial fibrillation, unspecified; E87.20 Acidosis, unspecified; E86.9 Volume depletion, unspecified; S82.491A Other fracture of shaft of right fibula, initial encounter for closed fracture; I10 Essential (primary) hypertension; E86.0 Dehydration; M25.552 Pain in left hip; E87.6 Hypokalemia; E88.89 Other specified metabolic disorders; E11.9 Type 2 diabetes mellitus without complications; I25.2 Old myocardial infarction; I25.10 Atherosclerotic heart disease of native coronary artery without angina pectoris; Z95.0 Presence of cardiac pacemaker; Z86.73 Personal history of transient ischemic attack (TIA), and cerebral infarction without residual deficits; Z79.01 Long term (current) use of anticoagulants; Z79.84 Long term (current) use of oral hypoglycemic drugs; Z79.899 Other long term (current) drug therapy; W18.30XA Fall on same level, unspecified, initial encounter; Y93.E1 Activity, personal bathing and showering; Y92.002 Bathroom of unspecified non-institutional (private) residence as the place of occurrence of the external cause; Y99.9 Unspecified external cause status
CPT/HCPCS: 36415; 70450; 71045; 74177; 80048; 80053; 82947; 83036; 83605; 83735; 83880; 84100; 84484; 85025; 85610; 85730; 87040; 93005; 96361; 96374; 97110; 97112; 97116; 97161; 97530; 99284; J0696; J1815; J2270; J2405; J3475; J3480; J7030; J7050; Q9967